=== PATIENT | female | born 1960 | race Caucasian/White ===

== ENCOUNTER 2022-12-20 17:34 | Outpatient (CLI) | payer MEDICAID, SELFPAY | END 2022-12-20 17:35 | disposition home or self-care (01) | LOC: AMB 12-24 01:21 | PROVIDERS: Visit Provider Family Medicine | DX: R06.09 Other forms of dyspnea (principal) | CPT/HCPCS: A0425; A0433 ==

== ENCOUNTER 2022-12-20 18:31 | Emergency (ER) | payer MEDICAID, SELFPAY ==
--- NOTE | 2022-12-20 | CRLHL7_ITS ---
For Patients: As a result of the Cures Act, medical imaging exams and procedure reports are released immediately into your electronic medical record. You may view this report before your referring provider. If you have questions, please contact your health care provider. INDICATION: Endotracheal tube placement. TECHNIQUE: Chest 1 view(s) COMPARISON: Chest radiograph dated 08/03/2022. FINDINGS/IMPRESSION: Endotracheal tube tip is 5.5 cm above the nahomi. Cardiomediastinal silhouette and pulmonary vasculature are normal. Mild patchy bilateral interstitial opacities. No significant layering pleural effusion, no pneumothorax. Healed bilateral rib fracture deformities noted. Dictated by Markel Villanueva MD @ 12/20/2022 8:45:56 PM (Electronically Signed)
[2022-12-20] MEDS: MIDAZOLAM HCL 1 MG/ML inj 4 MG IVP (18:50)
[2022-12-20] MEDS: fentaNYL 100 MCG/2 ML inj 50 MCG IVP ×2 (18:50→19:28)
[2022-12-20 19:13] LABS: Basophils Absolute Auto 0.02 K/uL (0.00-0.30); Basophils Percent Auto 0.2 % (0.0-3.0); Eosinophils Absolute Auto 0.01 K/uL (0.00-0.50); Eosinophils Percent Auto 0.1 % (0.0-7.0); Hematocrit 24.5 % (33.0-51.0); Hemoglobin* 8.5 gm/dL (12.0-16.0); Immature Granulocytes Abs Auto 0.09 K/uL (0.00-0.30); Immature Granulocytes Pct Auto 0.8 %; Mean Corpuscular HGB Conc 35 gm/dL (32-36); Mean Corpuscular Hemoglobin 34 pg (26-34); Mean Corpuscular Volume 97 fL (80-100); Monocytes Percent Auto 8.6 % (0.0-11.0); Neutrophils Percent Auto 83.3 % (42.0-72.0); Platelet Count* 242 K/uL (140-440); RDW Coefficient of Variation % 13.9 % (11.5-15.5); Red Blood Count 2.54 m/uL (4.00-5.20)
[2022-12-20 19:15] LABS: Slide Review Reflex No
[2022-12-20] MEDS: 0.9 % SODIUM CHLORIDE 500 ML 500 ML IV (19:15)
[2022-12-20] MEDS: ERTAPENEM 1 GM in 0.9 % SODIUM CHLORIDE Mini-bag 100 ML IVPB (19:15)
[2022-12-20] MEDS: AMIODARONE 50 MG/ML inj 150 MG in 5 % DEXTROSE 100 ML 100 ML 618 MG IVPB (19:20)
[2022-12-20 19:27] LABS: Albumin* 3.8 g/dL (3.3-5.0)
[2022-12-20 19:28] LABS: Chloride* 72 mmol/L (96-114); Sodium* 134 mmol/L (135-149)
[2022-12-20 19:30] LABS: Aspartate Amino Transferase* 95 U/L (12-35); Bilirubin Total* 1.8 mg/dL (0.1-1.5); Creatinine* 0.5 mg/dL (0.5-1.5); Estimated Glomerular Filt Rate 107 ml/min
--- NOTE | 2022-12-20 19:30 | ED_ITS ---
HPI - General Adult General Date Seen: 12/20/22 Chief complaint: Cardiac Arrest/CPR Stated complaint: Cardiac Time Seen by Provider: 12/20/22 19:22 Source: family, EMS, RN notes reviewed and old records reviewed Mode of arrival: EMS Limitations: no limitations History of Present Illness HPI narrative: Simona is a 61-year-old female with a history of alcohol abuse, COPD, hypokalemia, continued tobacco and alcohol use who comes to the emergency room with EMS post arrest. EMS was called to Simona's house as family had not heard from her in a few days. They found her awake and talking but with complaints of weakness and increased wheezing over the past 3 days. While EMS was talking to Simona she suddenly went into seizure-like activity and is they prepared Versed they noticed that she was not breathing. They found that she was in a PE a arrest. She underwent chest compressions, was intubated and had 1 around epinephrine when she had return of spontaneous circulation. Post arrest medications were Versed and fentanyl. She also had Rocuronium. There is report of fever of 100.7 and audible wheezing upon arrival. Patient is noted to be on Eliquis. Here in the emergency room Simona of course is unable to answer any questions. Her family does arrive and states that she did fall approximately 5 days ago injuring her right hip. As far as they know there were no head injuries. Related Data Home Medications Medication Instructions Recorded Confirmed lisinopril .ROUTE 08/03/22 Allergies Allergy/AdvReac Type Severity Reaction Status Date / Time Penicillins Allergy Verified 08/03/22 18:19 Review of Systems Status of ROS: Reports: unobtainable due to medical condition [facility] Social History Smoking Status: Heavy tobacco smoker What tobacco products do you use: cigarettes Second hand tobacco smoke exposure: Yes How often do you have a drink containing alcohol: 4 or more times a week How many standard drinks containing alcohol do you have on a typical day: 1 or 2 AUDIT-C Alcohol total score: 4 Non-prescribed substance use: denies use Exam Narrative: Exam Narrative: Primary survey: Airway patient is intubated. Trachea is midline. No subcutaneous emphysema is noted. Breathing patient is currently on a ventilator. Lung sounds showed crackles in the bases bilaterally but otherwise bilateral equal sounds. Circulation no obvious blue bleeding at this time. Patient has a GCS of 3. She has cold hands but her body is warm to touch. Pupils are approximately 3 mm. They are sluggishly reactive. Head is atra umatic normocephalic. Neck is supple. She has a healing wound on her left cheek. There is a central scab there. Does not warm to the touch or weeping. Heart is with an irregularly irregular rhythm. Heart monitor shows frequent bursts of PVC ranging from 1 to up to 6. These are non perfusing. Abdomen is soft nontender. Lower extremities show bruising and healing wounds on the right knee. No obvious edema. Const: Documenting provider has reviewed patient's vital signs: yes Course Course Hospital Course: Upon patient arrival we were hopeful that we would be able to do an expedited transfer as patient was post PE a arrest with [facility]. [place], [place], [place], [facility] all unable to accept patient. With that we elected to do laboratory values and CT here in [place]. During this time we use Versed and fentanyl for sedation. We placed an OG with success. A chest x-ray showed ET tube that needed to be advanced 1 cm. Chest x-ray without evidence of pneumonia. We were unable to use ketamine given at the shortage and I did not feel comfortable using propofol fall as patient's blood pressure had initially dropped from 170 systolic to 110. We did do an amiodarone 150 bolus. In addition started magnesium as there was no history of renal failure and was did have a history of alcohol use. Magnesium 1 g started. Potassium then returned at 1.6. We started 10 mEq IV IV but also gave after after facet potassium 25 mEq as this was a critical potassium and likely the reason for ectopy noted on her EKG. Medical Decision Making MDM Narrative Medical decision making narrative: 1. Respiratory arrest-chest x-ray without evidence of pneumothorax. Patient was swabbed for COVID. No wheezing noted. Given vent status did give patient initially Zosyn until it was discovered she had a penicillin allergy and that was immediately discontinued. 1 g of ertapenem was then given. Patient with a history of COPD. 2. PE a arrest with ROSC-1 round of epi and chest compressions return patient to a perfusing rhythm. Very irritable rhythm noted with frequent bursts of PVC occasional PAC. There were runs of ventricular tachycardia and thus we did give amiodarone 150 bolus. EKG greatly improved after initiating correction of 3. And 4. 3. Hypomagnesia- Patient was also given magnesium 1 g prior to return of but magnesium level which has come back at 0.8. 4. Hypokalemia-critical at 1.6. Hung 10 mEq rider and did give 25 after effervescent potassium via OG tube. 5. Anemia-no obvious bleeding at this time. Did not have an opportunity for guaiac of stool. Patient did have recent fall. CT he pending 6. History of alcohol use-alcohol level 0. 7. Disposition-ground ambulance transfer to [facility]. Lab Data Labs: Lab Results 12/20/22 12/20/22 Range/Units 19:05 19:05 WBC 10.90 (4.50-11.00) K/uL RBC 2.54 L (4.00-5.20) m/uL Hgb 8.5 L (12.0-16.0) gm/dL Hct 24.5 L (33.0-51.0) % MCV 97 (80-100) fL MCH 34 (26-34) pg MCHC 35 (32-36) gm/dL RDW Coeff of Katina 13.9 (11.5-15.5) % Plt Count 242 (140-440) K/uL Neut % (Auto) 83.3 H (42.0-72.0) % Lymph % (Auto) 7.0 L (20-44) % [place] % (Auto) 8.6 (0.0-11.0) % Eos % (Auto) 0.1 (0.0-7.0) % Baso % (Auto) 0.2 (0.0-3.0) % Neut # (Auto) 9.10 H (1.7-7.0) K/uL Lymph # (Auto) 0.80 L (0.90-2.90) K/uL [place] # (Auto) 0.90 (0.00-0.90) K/UL Eos # (Auto) 0.01 (0.00-0.50) K/uL Baso # (Auto) 0.02 (0.00-0.30) K/uL Sodium 134 L (135-149) mmol/L Potassium 1.6 L* (3.6-5.1) mmol/L Chloride 72 L (96-114) mmol/L Carbon Dioxide > 40 H* (20-32) mmol/L BUN 17 (7-30) mg/dL Creatinine 0.5 (0.5-1.5) mg/dL Estimated GFR 107 ml/min Glucose 143 H (60-115) mg/dL Calcium 7.1 L (8.4-10.6) mg/dL Magnesium 0.8 L* (1.5-2.6) mg/dL Total Bilirubin 1.8 H (0.1-1.5) mg/dL AST 95 H (12-35) U/L ALT (4-35) U/L Alkaline Phosphatase 67 (40-150) U/L Total Protein 6.6 (6.0-8.3) g/dL Albumin 3.8 (3.3-5.0) g/dL Salicylates < 1.0 L (1.0-10) mg/dL Acetaminophen < 10.0 L (10.0-30.0) ug/mL Ethyl Alcohol < 0.01 L (0.01-0.03) % Imaging Data CT scan - head: Attestation: I have reviewed the pertinent imaging results. My impression: I did not note any acute bleeding Radiologist's impression: midline shift. The basilar cisterns are patent. No hydrocephalus. The sen-white matter interface is otherwise preserved. No acute osseous abnormality. No extracalvarial soft tissue abnormality. The mastoid air cells are clear. The paranasal sinuses are well-aerated. The visualized portions of the orbits and globes are unremarkable. IMPRESSION: No acute intracranial process per unenhanced head CT. Cervical spine CT: Attestation: I have reviewed the pertinent imaging results. My impression: I did note acute injury Radiologist's impression: No acute fracture. Stable trace anterolisthesis of C4 on C5. Stable trace retrolisthesis of C5 on C6. Bony mineralization is age appropriate. No prevertebral soft tissue hematoma or swelling. No soft tissue abnormality is identified. Stable multilevel cervical spondylosis with disc osteophyte complexes causing at least effacement of the anterior thecal sac. No pathologically enlarged lymph nodes. IMPRESSION: Chest x-ray: Attestation: I have reviewed the pertinent imaging results. My impression: I do not note any acute infiltrates. Tip of ET tube approximately 5 cm above nahomi no evidence of a widened mediastinum Radiologist's impression: Endotracheal tube tip is 5.5 cm above the nahomi. Cardiomediastinal silhouette and pulmonary vasculature are normal. Mild patchy bilateral interstitial opacities. No significant layering pleural effusion, no pneumothorax. Healed bilateral rib fracture deformities noted. CT Chest/Ab/Pelvis: Attestation: I have reviewed the pertinent imaging results. Radiologist's impression: Liver: Diffuse hepatic steatosis. Gallbladder and biliary: Sludge and an otherwise normal gallbladder. Normal caliber bile ducts. Spleen: Normal size and attenuation. Pancreas: Normal attenuation without peripancreatic inflammatory changes or ductal dilatation. Adrenal glands: Normal adrenal glands. Kidneys and ureters: Normal attenuation. No radio-opaque calculi. No hydroureteronephrosis. GI tract: Enteric tube with tip in the gastric body. Normal caliber small and large bowel loops. Normal appendix. Colonic diverticulosis without diverticulitis. Vascular structures: Normal caliber aorta with atherosclerotic calcifications. Air within the left common femoral vein likely iatrogenic. Lymph nodes: No lymphadenopathy in the abdomen or pelvis by size criteria. Peritoneum: No free air, free fluid, or focal drainable fluid collection. PELVIS: Genitourinary system: Urinary bladder is decompressed with a catheter. Age- appropriate uterus and ovaries. SKELETAL STRUCTURES AND SOFT TISSUES: Old bilateral rib fractures. IMPRESSION: 1. No acute process within the chest, abdomen, or pelvis given lack of intravenous contrast. 2. Areas of mucus plugging and retained bronchial and tracheal secretions. 3. Life support devices as above. ECG Data Interpretation: EKG by my read shows significant ectopy. Occasional 5 beat runs of ventricular tachycardia noted on monitor. Critical Care Time Critical Care Time Critical Care Time: Yes Attestation: The patient required my highest level preparedness to intervene emergently and I personally spent this critical care time directly and personally managing the patient. This critical care time included: Obtaining a history; Examining the patient; Pulse oximetry; Ordering and reviewing of studies; Arranging urgent treatment with development of a management plan; Evaluation of patients response to treatment; Frequent reassessment discussions with other providers. This critical care time was performed to assess and manage the high probability of imminent life-threatening deterioration that could result in multiorgan failure. It was exclusive of separate billable procedures and treating other patients and teaching time. Total Critical Care Time in Minutes: 120 Discharge Plan Discharge Prescriptions: No Action lisinopril .ROUTE Follow Up/Referrals: Provider,Not a Local [Primary Care Provider] -
[2022-12-20 19:31] LABS: Alkaline Phosphatase* 67 U/L (40-150); Blood Urea Nitrogen* 17 mg/dL (7-30); Calcium* 7.1 mg/dL (8.4-10.6); Glucose* 143 mg/dL (60-115); Total Protein* 6.6 g/dL (6.0-8.3)
--- NOTE | 2022-12-20 19:31 | CT_ITS ---
Patient: MINDA EDWARDS Facility:?[facility] Patient ID:?[id number] Site Patient ID:?[id number]. Site :?[id number] Study:?CT-Spine Cervical -12/20/2022 7:56:32 PM Ordering Physician:?UNKNOWN UNKNOWN Final Report: INDICATION: Fall. TECHNIQUE: CT cervical spine without contrast. COMPARISON: CT July 2022. FINDINGS: No acute fracture. Stable trace anterolisthesis of C4 on C5. Stable trace retrolisthesis of C5 on C6. Bony mineralization is age appropriate. No prevertebral soft tissue hematoma or swelling. No soft tissue abnormality is identified. Stable multilevel cervical spondylosis with disc osteophyte complexes causing at least effacement of the anterior thecal sac. No pathologically enlarged lymph nodes. IMPRESSION: No acute fracture. Please note that all CT scans at this facility use dose modulation, iterative reconstruction, and/or weight-based dosing when appropriate to reduce radiation dose to as low as reasonably achievable. Dictated by Rambo Sam MD @ 12/20/2022 8:10:29 PM Signed by:?Rambo Sam MD @12/20/2022 8:10:29 PM (Electronic Signature)
--- NOTE | 2022-12-20 19:31 | CRLHL7_ITS ---
For Patients: As a result of the Century Cures Act, medical imaging exams and procedure reports are released immediately into your electronic medical record. You may view this report before your referring provider. If you have questions, please contact your health care provider. INDICATION: Post arrest, fall TECHNIQUE: CT head without contrast. COMPARISON: None. FINDINGS: No intracranial hemorrhage. No discrete mass or mass effect. There is no midline shift. The basilar cisterns are patent. No hydrocephalus. The sen-white matter interface is otherwise preserved. No acute osseous abnormality. No extracalvarial soft tissue abnormality. The mastoid air cells are clear. The paranasal sinuses are well-aerated. The visualized portions of the orbits and globes are unremarkable. IMPRESSION: No acute intracranial process per unenhanced head CT. Please note that all CT scans at this facility use dose modulation, iterative reconstruction, and/or weight-based dosing when appropriate to reduce radiation dose to as low as reasonably achievable. Dictated by Rambo Sam MD @ 12/20/2022 8:07:45 PM (Electronically Signed)
--- NOTE | 2022-12-20 19:31 | CRLHL7_ITS ---
For Patients: As a result of the Century Cures Act, medical imaging exams and procedure reports are released immediately into your electronic medical record. You may view this report before your referring provider. If you have questions, please contact your health care provider. INDICATION: Post arrest TECHNIQUE: CT chest, abdomen and pelvis acquired without contrast. COMPARISON: CT July 2022 FINDINGS: CHEST: Lungs and Airways: Appropriately positioned endotracheal tube. Respiratory motion within the lung bases. Bibasilar subsegmental atelectasis. Trace biapical subpleural fibrosis. Scattered areas of endobronchial mucous plugging. Retained tracheal secretions. Heart and Mediastinum: The visualized portions of the thyroid are normal. No axillary or supraclavicular lymphadenopathy. No mediastinal, hilar or retrocrural lymphadenopathy. Normal heart size. Normal caliber aorta. Atherosclerotic calcifications. Pleura: The pleural spaces are normal. ABDOMEN: Liver: Diffuse hepatic steatosis. Gallbladder and biliary: Sludge and an otherwise normal gallbladder. Normal caliber bile ducts. Spleen: Normal size and attenuation. Pancreas: Normal attenuation without peripancreatic inflammatory changes or ductal dilatation. Adrenal glands: Normal adrenal glands. Kidneys and ureters: Normal attenuation. No radio-opaque calculi. No hydroureteronephrosis. GI tract: Enteric tube with tip in the gastric body. Normal caliber small and large bowel loops. Normal appendix. Colonic diverticulosis without diverticulitis. Vascular structures: Normal caliber aorta with atherosclerotic calcifications. Air within the left common femoral vein likely iatrogenic. Lymph nodes: No lymphadenopathy in the abdomen or pelvis by size criteria. Peritoneum: No free air, free fluid, or focal drainable fluid collection. PELVIS: Genitourinary system: Urinary bladder is decompressed with a catheter. Age-appropriate uterus and ovaries. SKELETAL STRUCTURES AND SOFT TISSUES: Old bilateral rib fractures. IMPRESSION: 1. No acute process within the chest, abdomen, or pelvis given lack of intravenous contrast. 2. Areas of mucus plugging and retained bronchial and tracheal secretions. 3. Life support devices as above. Please note that all CT scans at this facility use dose modulation, iterative reconstruction, and/or weight-based dosing when appropriate to reduce radiation dose to as low as reasonably achievable. Dictated by Rambo Sam MD @ 12/20/2022 8:18:42 PM (Electronically Signed)
[2022-12-20 19:40] LABS: Acetaminophen* < 10.0 ug/mL (10.0-30.0); Ethanol* < 0.01 % (0.01-0.03); Salicylate* < 1.0 mg/dL (1.0-10)
[2022-12-20] MEDS: MIDAZOLAM HCL 1 MG/ML inj 2 MG IVP (19:42)
[2022-12-20 19:49] LABS: Carbon Dioxide* > 40 mmol/L (20-32); Potassium* 1.6 mmol/L (3.6-5.1)
[2022-12-20] MEDS: POTASSIUM BICARB 25 MEQ EFFERVESCENT TAB PO (19:50)
[2022-12-20] MEDS: POTASSIUM CHLORIDE 10 MEQ/100 ML PIGGYBACK 100 MEQ IVPB (19:50)
[2022-12-20 19:54] LABS: Magnesium* 0.8 mg/dL (1.5-2.6)
[2022-12-20] MEDS: MAGNESIUM SULFATE 2 GM/50 ML PIGGYBACK IVPB (20:16)
--- NOTE | 2022-12-20 20:23 | ED.NURSE ---
Patient was transferred to [place] at 2023. Patient transferred with magnesium 1g and potassium 10mEq infusing. Patient with ventilator set to transport settings per RT. Family with patient at time of transfer and given transferring hospital details. Updated RN reports called to [facility] at time of transfer. Patient sent via [facility].
--- NOTE | 2022-12-20 20:43 | ED.NURSE ---
Patient remained on EMS monitoring due to anticipated transfer to higher level of care. Vital signs not able to be uploaded into HMR due to this.
--- NOTE | 2023-02-12 10:57 | RESP.RT ---
Reviewing Chart for See [facility], [facility] program
== END 2022-12-20 20:20 | disposition home or self-care (01) ==
PROVIDERS: Emergency Provider Family Medicine
DX: R09.2 Respiratory arrest (principal); E83.42 Hypomagnesemia; E87.6 Hypokalemia
CPT/HCPCS: 31500; 36415; 70450; 71045; 71250; 72125; 74176; 80053; 80143; 80179; 82077; 83735; 85025; 93005; 96365; 96366; 96375; 96376; 99285; 99291; 99292; A9270; J0282; J1335; J2250; J3010; J3475; J3480; J7120

== ENCOUNTER 2022-12-20 19:47 | Outpatient (CLI) | payer MEDICAID, SELFPAY | END 2022-12-20 19:48 | disposition home or self-care (01) | LOC: AMB 12-24 01:28 | PROVIDERS: Visit Provider Family Medicine | DX: I49.9 Cardiac arrhythmia, unspecified (principal) | CPT/HCPCS: A0425; A0434 ==

== ENCOUNTER 2023-06-29 21:53 | Outpatient (CLI) | payer MEDICAID, SELFPAY | END 2023-06-29 21:54 | disposition home or self-care (01) | LOC: AMB 07-03 10:35 | PROVIDERS: Visit Provider Family Medicine | DX: R55 Syncope and collapse (principal); T14.90XA Injury, unspecified, initial encounter; W18.30XA Fall on same level, unspecified, initial encounter; Y92.038 Other place in apartment as the place of occurrence of the external cause | CPT/HCPCS: A0425; A0429 ==

== ENCOUNTER 2023-06-29 22:32 | Emergency (ER) | payer MEDICAID, SELFPAY ==
[2023-06-29] VITALS (7 sets, daily range): BP systolic 166; BP diastolic 84; PULSE 105–184; RESP 20; TEMP 36.1; O2SAT 91–97
--- NOTE | 2023-06-29 22:43 | ED_ITS ---
HPI - General Adult General Chief complaint: Fall/Minor Trauma <Tenisha Hicks MD - Last Filed: 07/01/23 06:02> Stated complaint: Fall <Tenisha Hicks MD - Last Filed: 07/01/23 06:02> Time Seen by Provider: 06/29/23 22:35 <Tenisha Hicks MD - Last Filed: 07/01/23 06:02> Source: patient and EMS <Tenisha Hicks MD - Last Filed: 07/01/23 06:02> Mode of arrival: EMS <Tenisha Hicks MD - Last Filed: 07/01/23 06:02> Limitations: no limitations <Tenisha Hicks MD - Last Filed: 07/01/23 06:02> History of Present Illness HPI narrative: 62-year-old female brought in by EMS after they found her down in her apartment covered in feces. The patient fell approximately 1 hour before EMS arrived according to her and was unable to get up. Supposedly someone walking by her apartment saw her down and called EMS for her. She can not tell me how she fell. She denies drinking alcohol today, she does have a long history of alcohol use. She denies hitting her head or losing consciousness. She states that she has had diarrhea all day long. Denies any urinary symptoms. Denies chest pain or shortness of breath. She has no headache blurry vision or ringing in her ears. She has weakness that she has noticed going on for the last 2 days. She denies fevers or vomiting. States that she has been coughing, unclear for how long. <Tenisha Hicks MD - Last Filed: 07/01/23 06:02> Related Data Home medications: Home Medications Medication Instructions Recorded Confirmed lisinopril .ROUTE 08/03/22 <Tenisha Hicks MD - Last Filed: 07/01/23 06:02> Allergies/adverse reactions: Allergies Allergy/AdvReac Type Severity Reaction Status Date / Time Penicillins Allergy Verified 06/29/23 22:47 <Tenisha Hicks MD - Last Filed: 07/01/23 06:02> Review of Systems Status of ROS: Reports: 10 or more systems reviewed and unremarkable except as noted in History and below <Tenisha Hicks MD - Last Filed: 07/01/23 06:02> [facility] Social History: Social History Smoking Status: Heavy tobacco smoker What tobacco products do you use: cigarettes Second hand tobacco smoke exposure: Yes How often do you have a drink containing alcohol: 4 or more times a week How many standard drinks containing alcohol do you have on a typical day: 1 or 2 AUDIT-C Alcohol total score: 4 Non-prescribed substance use: denies use <Tenisha Hicks MD - Last Filed: 07/01/23 06:02> Exam Narrative: Exam Narrative: Very thin patient in no acute distress tremor at rest. Alert and oriented x3. Answers questions appropriately and is cooperative. Patient appears very malnourished, older than stated age, skin is mottled and she is covered in feces, smells of feces and urine. HEENT: Normocephalic atraumatic. Pupils are equally round reactive to light. Extraocular muscles are intact. Conjunctivae are moist without any icterus noted. Dry mucous membranes. Neck is soft without any lymphadenopathy. She has no tenderness to palpation of the cervical spine. She holds her neck at an angle and appears uncomfortable but denies pain with palpation. Cardiovascular: Tachycardic, S1-S2 present without murmurs. Lungs: Rhonchi bilaterally. Abdomen: Soft and nontender with normal bowel sounds. No guarding or rebound. Liver seems enlarged. Abdomen is mildly distended. Extremities: Bilateral lower extremities are without edema. Skin: Mottled, no obvious abrasions or lacerations noted <Tenisha Hicks MD - Last Filed: 07/01/23 06:02> Const: Vital Signs, click to edit/add: Vital Signs - 24 hr 06/29/23 22:42 06/29/23 22:42 06/29/23 22:47 Temperature 96.9 F L Pulse Rate 109 H Pulse Rate [Pulse Oximeter] 105 H Respiratory Rate 20 Blood Pressure Blood Pressure [Ri ght Upper Arm] 166/84 H Pulse Oximetry 95 96 Oxygen Delivery Me thod Room Air Nasal Cannula Oxygen Flow Rate 2 06/29/23 22:48 06/29/23 23:00 06/29/23 23:15 Temperature Pulse Rate 132 H 147 H Pulse Rate [Pulse Oximeter] Respiratory Rate Blood Pressure Blood Pressure [Ri ght Upper Arm] Pulse Oximetry 97 91 97 Oxygen Delivery Me thod Oxygen Flow Rate 06/29/23 23:52 06/30/23 00:00 06/30/23 00:05 Temperature Pulse Rate 184 H 134 H 112 H Pulse Rate [Pulse Oximeter] Respiratory Rate Blood Pressure Blood Pressure [Ri ght Upper Arm] Pulse Oximetry 97 97 96 Oxygen Delivery Me thod Oxygen Flow Rate 06/30/23 00:16 06/30/23 00:19 06/30/23 00:20 Temperature Pulse Rate 116 H 91 92 Pulse Rate [Pulse Oximeter] Respiratory Rate Blood Pressure Blood Pressure [Ri ght Upper Arm] Pulse Oximetry 90 100 100 Oxygen Delivery Me thod Oxygen Flow Rate 06/30/23 00:29 06/30/23 00:30 06/30/23 00:32 Temperature Pulse Rate 96 86 88 Pulse Rate [Pulse Oximeter] Respiratory Rate Blood Pressure 127/91 H 126/85 Blood Pressure [Ri ght Upper Arm] Pulse Oximetry 100 100 100 Oxygen Delivery Me thod Oxygen Flow Rate 06/30/23 00:45 06/30/23 00:47 06/30/23 01:00 Temperature Pulse Rate 112 H 104 H Pulse Rate [Pulse Oximeter] Respiratory Rate Blood Pressure 110/89 Blood Pressure [Ri ght Upper Arm] Pulse Oximetry 100 100 78 L Oxygen Delivery Me thod Oxygen Flow Rate 06/30/23 01:01 06/30/23 01:15 06/30/23 01:17 Temperature Pulse Rate 91 115 H Pulse Rate [Pulse Oximeter] Respiratory Rate Blood Pressure 122/101 H 138/125 H Blood Pressure [Ri ght Upper Arm] Pulse Oximetry 100 100 Oxygen Delivery Me thod Oxygen Flow Rate <Tenisha Hicks MD - Last Filed: 07/01/23 06:02> Vital Signs, click to edit/add: Vital Signs - 24 hr 06/29/23 22:42 06/29/23 22:42 06/29/23 22:47 Temperature 96.9 F L Pulse Rate 109 H Pulse Rate [Pulse Oximeter] 105 H Respiratory Rate 20 Blood Pressure Blood Pressure [Ri ght Upper Arm] 166/84 H Pulse Oximetry 95 96 Oxygen Delivery Me thod Room Air Nasal Cannula Oxygen Flow Rate 2 06/29/23 22:48 06/29/23 23:00 06/29/23 23:15 Temperature Pulse Rate 132 H 147 H Pulse Rate [Pulse Oximeter] Respiratory Rate Blood Pressure Blood Pressure [Ri ght Upper Arm] Pulse Oximetry 97 91 97 Oxygen Delivery Me thod Oxygen Flow Rate 06/29/23 23:52 06/30/23 00:00 06/30/23 00:05 Temperature Pulse Rate 184 H 134 H 112 H Pulse Rate [Pulse Oximeter] Respiratory Rate Blood Pressure Blood Pressure [Ri ght Upper Arm] Pulse Oximetry 97 97 96 Oxygen Delivery Me thod Oxygen Flow Rate 06/30/23 00:16 06/30/23 00:19 06/30/23 00:20 Temperature Pulse Rate 116 H 91 92 Pulse Rate [Pulse Oximeter] Respiratory Rate Blood Pressure Blood Pressure [Ri ght Upper Arm] Pulse Oximetry 90 100 100 Oxygen Delivery Me thod Oxygen Flow Rate 06/30/23 00:29 06/30/23 00:30 06/30/23 00:32 Temperature Pulse Rate 96 86 88 Pulse Rate [Pulse Oximeter] Respiratory Rate Blood Pressure 127/91 H 126/85 Blood Pressure [Ri ght Upper Arm] Pulse Oximetry 100 100 100 Oxygen Delivery Me thod Oxygen Flow Rate 06/30/23 00:45 06/30/23 00:47 06/30/23 01:00 Temperature Pulse Rate 112 H 104 H Pulse Rate [Pulse Oximeter] Respiratory Rate Blood Pressure 110/89 Blood Pressure [Ri ght Upper Arm] Pulse Oximetry 100 100 78 L Oxygen Delivery Me thod Oxygen Flow Rate 06/30/23 01:01 06/30/23 01:15 06/30/23 01:17 Temperature Pulse Rate 91 115 H Pulse Rate [Pulse Oximeter] Respiratory Rate Blood Pressure 122/101 H 138/125 H Blood Pressure [Ri ght Upper Arm] Pulse Oximetry 100 100 Oxygen Delivery Me thod Oxygen Flow Rate <Tenisha Gutierrez MD - Last Filed: 06/30/23 01:47> Course Course Hospital Course: EKG, read by me, shows atrial fibrillation with premature ventricular complexes, pulse of 105. Patient is placed a court monitor her pulse fluctuates between 105-130. IV is established and labs were drawn. Normal saline is started right away. Given her unwitnessed fall a head and neck CT were ordered. Shortly after presenting to the ED patient is found to be hypoxic at 85% on room air-at this time she is put on 2 L nasal cannula and is maintained in the mid 90s. A chest x-ray is ordered. Patient's CBC shows mild anemia with a hemoglobin of 11.1 and hematocrit of 32.9, normal platelet count 148. Sodium is slightly low at 134. Potassium is markedly low at 1.4, chloride 75. At this time patient is given 40 mEq of oral potassium and another 10 mEq of IV potassium per hour of potassium is started simultaneously. We also started a magnesium drip at this time, magnesium revolves were low at 0.8. Patient has elevated LFTs, normal kidney function. Her troponin is markedly elevated at 0.52. A lactate cannot be determined given her low potassium. Salicylates acetaminophen alcohol levels are negative She has not yet given a urine sample. At this time I did consult with Dr. Arambula, travel clerk at [facility] who has accepted the patient for transfer. [facility]. <Tenisha Hicks MD - Last Filed: 07/01/23 06:02> Reevaluation(s) Time of Reevaluation #1: 01:46 <Tenisha Gutierrez MD - Last Filed: 06/30/23 01:47> Reevaluation #1: Lab unable to find site for blood draw, they tried multiple times and could not get blood for repeat BMP. Patient will be transferring to [facility] shortly, thus we will allow them to recheck on arrival there. <Tenisha Ellison MD - Last Filed: 06/30/23 01:47> Vital Signs Vital signs: Initial Vital Signs Temperature 96.9 F L 06/29/23 22:42 Temperature Source Temporal Artery Scan 06/29/23 22:42 Pulse Rate 105 H 06/29/23 22:42 Respiratory Rate 20 06/29/23 22:42 Blood Pressure 166/84 H 06/29/23 22:42 Blood Pressure Mean 111 H 06/29/23 22:42 Blood Pressure Position Supine 06/29/23 22:42 Pulse Oximetry 95 06/29/23 22:42 Oxygen Delivery Method Room Air 06/29/23 22:42 Oxygen Flow Rate 2 06/29/23 22:42 Vital Signs Temperature 96.9 F L 06/29/23 22:42 Pulse Rate 105 H 06/29/23 22:42 Respiratory Rate 20 06/29/23 22:42 Blood Pressure 166/84 H 06/29/23 22:42 Pulse Oximetry 95 06/29/23 22:42 Oxygen Delivery Method Room Air 06/29/23 22:42 Oxygen Flow Rate 2 06/29/23 22:42 Temperature 98.6 F 06/30/23 02:16 Pulse Rate 125 H 06/30/23 02:16 Respiratory Rate 24 06/30/23 02:16 Blood Pressure 169/111 H 06/30/23 02:16 Pulse Oximetry 100 06/30/23 02:00 Oxygen Delivery Method Nasal Cannula 06/29/23 23:22 Oxygen Flow Rate 2 06/29/23 23:22 <Tenisha Hicks MD - Last Filed: 07/01/23 06:02> Initial Vital Signs Temperature 96.9 F L 06/29/23 22:42 Temperature Source Temporal Artery Scan 06/29/23 22:42 Pulse Rate 105 H 06/29/23 22:42 Respiratory Rate 20 06/29/23 22:42 Blood Pressure 166/84 H 06/29/23 22:42 Blood Pressure Mean 111 H 06/29/23 22:42 Blood Pressure Position Supine 06/29/23 22:42 Pulse Oximetry 95 06/29/23 22:42 Oxygen Delivery Method Room Air 06/29/23 22:42 Oxygen Flow Rate 2 06/29/23 22:42 Vital Signs Temperature 96.9 F L 06/29/23 22:42 Pulse Rate 105 H 06/29/23 22:42 Respiratory Rate 20 06/29/23 22:42 Blood Pressure 166/84 H 06/29/23 22:42 Pulse Oximetry 95 06/29/23 22:42 Oxygen Delivery Method Room Air 06/29/23 22:42 Oxygen Flow Rate 2 06/29/23 22:42 Temperature 98.6 F 06/30/23 02:16 Pulse Rate 125 H 06/30/23 02:16 Respiratory Rate 24 06/30/23 02:16 Blood Pressure 169/111 H 06/30/23 02:16 Pulse Oximetry 100 06/30/23 02:00 Oxygen Delivery Method Nasal Cannula 06/29/23 23:22 Oxygen Flow Rate 2 06/29/23 23:22 <Tenisha Gutierrez MD - Last Filed: 06/30/23 01:47> Medical Decision Making MDM Narrative Medical decision making narrative: 62-year-old female with hypokalemia, rhabdomyolysis, hypomagnesemia, hypoxic respiratory failure, failure to thrive at home, AFib with RVR-patient will be transferred to [facility]. <Tenisha Hicks MD - Last Filed: 07/01/23 06:02> Medical Records Medical records reviewed: Yes I reviewed the patient's medical records <Tenisha Hicks MD - Last Filed: 07/01/23 06:02> Lab Data Lab results reviewed: Yes I reviewed the patient's lab results <Tenisha Hicks MD - Last Filed: 07/01/23 06:02> Labs: Lab Results 06/29/23 06/29/23 06/30/23 Range/Units 23:00 23:23 00:15 WBC 10.82 (4.50-11.00) K/uL RBC 3.22 L (4.00-5.20) m/uL Hgb 11.1 L (12.0-16.0) gm/dL Hct 32.9 L (33.0-51.0) % MCV 102 H (80-100) fL MCH 35 H (26-34) pg MCHC 34 (32-36) gm/dL RDW Coeff of Katina 13.9 (11.5-15.5) % Plt Count 148 (140-440) K/uL Neut % (Auto) 86.3 H (42.0-72.0) % Lymph % (Auto) 6.7 L (20-44) % Ellsworth % (Auto) 6.5 (0.0-11.0) % Eos % (Auto) 0.0 (0.0-7.0) % Baso % (Auto) 0.1 (0.0-3.0) % Neut # (Auto) 9.30 H (1.7-7.0) K/uL Lymph # (Auto) 0.70 L (0.90-2.90) K/uL Ellsworth # (Auto) 0.70 (0.00-0.90) K/UL Eos # (Auto) 0.00 (0.00-0.50) K/uL Baso # (Auto) 0.01 (0.00-0.30) K/uL Abs Immat Gran (auto) 0.04 (0.00-0.30) K/uL Imm/Tot Granulo (auto) 0.4 % ESR 6 (2-20) mm/hr VBG pH 7.479 H (7.32-7.43) VBG pCO2 43 (40-50) mmHG VBG pO2 38.1 (25-47) mmHG VBG HCO3 32 H (21-28) mmol/L Sodium 134 L (135-149) mmol/L Potassium 1.4 L* (3.6-5.1) mmol/L Chloride 75 L (96-114) mmol/L Carbon Dioxide 35 H (20-32) mmol/L BUN 18 (7-30) mg/dL Creatinine 0.9 (0.5-1.5) mg/dL Estimated Creat Clear Estimated GFR 72 ml/min Glucose 121 H (60-115) mg/dL Lactate (0.5-1.9) mmol/L Calcium 7.0 L (8.4-10.6) mg/dL Magnesium 0.8 L* (1.5-2.6) mg/dL Total Bilirubin 4.2 H (0.1-1.5) mg/dL Direct Bilirubin 2.4 H (0.0-0.5) mg/dL AST 242 H (12-35) U/L ALT 120 H (4-35) U/L Alkaline Phosphatase 165 H (40-150) U/L Total Creatine Kinase 2456 H (41-117) U/L Troponin I 0.52 H* (0.01-0.04) ng/mL C-Reactive Protein 1.4 H (0.5-1.0) mg/dL Total Protein 6.8 (6.0-8.3) g/dL Albumin 3.9 (3.3-5.0) g/dL Salicylates < 1.0 L (1.0-10) mg/dL Acetaminophen < 10.0 L (10.0-30.0) ug/mL Ethyl Alcohol < 0.01 L (0.01-0.03) % POC Troponin I 0.36 H (0.01-0.04) ng/ml 06/30/23 Range/Units 00:53 WBC (4.50-11.00) K/uL RBC (4.00-5.20) m/uL Hgb (12.0-16.0) gm/dL Hct (33.0-51.0) % MCV (80-100) fL MCH (26-34) pg MCHC (32-36) gm/dL RDW Coeff of Katina (11.5-15.5) % Plt Count (140-440) K/uL Neut % (Auto) (42.0-72.0) % Lymph % (Auto) (20-44) % Ellsworth % (Auto) (0.0-11.0) % Eos % (Auto) (0.0-7.0) % Baso % (Auto) (0.0-3.0) % Neut # (Auto) (1.7-7.0) K/uL Lymph # (Auto) (0.90-2.90) K/uL Ellsworth # (Auto) (0.00-0.90) K/UL Eos # (Auto) (0.00-0.50) K/uL Baso # (Auto) (0.00-0.30) K/uL Abs Immat Gran (auto) (0.00-0.30) K/uL Imm/Tot Granulo (auto) % ESR (2-20) mm/hr VBG pH (7.32-7.43) VBG pCO2 (40-50) mmHG VBG pO2 (25-47) mmHG VBG HCO3 (21-28) mmol/L Sodium Cancelled (135-149) mmol/L Potassium Cancelled (3.6-5.1) mmol/L Chloride Cancelled (96-114) mmol/L Carbon Dioxide Cancelled (20-32) mmol/L BUN Cancelled (7-30) mg/dL Creatinine Cancelled (0.5-1.5) mg/dL Estimated Creat Clear Cancelled Estimated GFR Cancelled ml/min Glucose Cancelled (60-115) mg/dL Lactate (0.5-1.9) mmol/L Calcium Cancelled (8.4-10.6) mg/dL Magnesium (1.5-2.6) mg/dL Total Bilirubin (0.1-1.5) mg/dL Direct Bilirubin (0.0-0.5) mg/dL AST (12-35) U/L ALT (4-35) U/L Alkaline Phosphatase (40-150) U/L Total Creatine Kinase (41-117) U/L Troponin I (0.01-0.04) ng/mL C-Reactive Protein (0.5-1.0) mg/dL Total Protein (6.0-8.3) g/dL Albumin (3.3-5.0) g/dL Salicylates (1.0-10) mg/dL Acetaminophen (10.0-30.0) ug/mL Ethyl Alcohol (0.01-0.03) % POC Troponin I (0.01-0.04) ng/ml <Tenisha Hicks MD - Last Filed: 07/01/23 06:02> Lab Results 06/29/23 06/29/23 06/30/23 Range/Units 23:00 23:23 00:15 WBC 10.82 (4.50-11.00) K/uL RBC 3.22 L (4.00-5.20) m/uL Hgb 11.1 L (12.0-16.0) gm/dL Hct 32.9 L (33.0-51.0) % MCV 102 H (80-100) fL MCH 35 H (26-34) pg MCHC 34 (32-36) gm/dL RDW Coeff of Katina 13.9 (11.5-15.5) % Plt Count 148 (140-440) K/uL Neut % (Auto) 86.3 H (42.0-72.0) % Lymph % (Auto) 6.7 L (20-44) % Ellsworth % (Auto) 6.5 (0.0-11.0) % Eos % (Auto) 0.0 (0.0-7.0) % Baso % (Auto) 0.1 (0.0-3.0) % Neut # (Auto) 9.30 H (1.7-7.0) K/uL Lymph # (Auto) 0.70 L (0.90-2.90) K/uL Ellsworth # (Auto) 0.70 (0.00-0.90) K/UL Eos # (Auto) 0.00 (0.00-0.50) K/uL Baso # (Auto) 0.01 (0.00-0.30) K/uL Abs Immat Gran (auto) 0.04 (0.00-0.30) K/uL Imm/Tot Granulo (auto) 0.4 % ESR 6 (2-20) mm/hr VBG pH 7.479 H (7.32-7.43) VBG pCO2 43 (40-50) mmHG VBG pO2 38.1 (25-47) mmHG VBG HCO3 32 H (21-28) mmol/L Sodium 134 L (135-149) mmol/L Potassium 1.4 L* (3.6-5.1) mmol/L Chloride 75 L (96-114) mmol/L Carbon Dioxide 35 H (20-32) mmol/L BUN 18 (7-30) mg/dL Creatinine 0.9 (0.5-1.5) mg/dL Estimated Creat Clear Estimated GFR 72 ml/min Glucose 121 H (60-115) mg/dL Lactate (0.5-1.9) mmol/L Calcium 7.0 L (8.4-10.6) mg/dL Magnesium 0.8 L* (1.5-2.6) mg/dL Total Bilirubin 4.2 H (0.1-1.5) mg/dL Direct Bilirubin 2.4 H (0.0-0.5) mg/dL AST 242 H (12-35) U/L ALT 120 H (4-35) U/L Alkaline Phosphatase 165 H (40-150) U/L Total Creatine Kinase 2456 H (41-117) U/L Troponin I 0.52 H* (0.01-0.04) ng/mL C-Reactive Protein 1.4 H (0.5-1.0) mg/dL Total Protein 6.8 (6.0-8.3) g/dL Albumin 3.9 (3.3-5.0) g/dL Salicylates < 1.0 L (1.0-10) mg/dL Acetaminophen < 10.0 L (10.0-30.0) ug/mL Ethyl Alcohol < 0.01 L (0.01-0.03) % POC Troponin I 0.36 H (0.01-0.04) ng/ml 06/30/23 Range/Units 00:53 WBC (4.50-11.00) K/uL RBC (4.00-5.20) m/uL Hgb (12.0-16.0) gm/dL Hct (33.0-51.0) % MCV (80-100) fL MCH (26-34) pg MCHC (32-36) gm/dL RDW Coeff of Katina (11.5-15.5) % Plt Count (140-440) K/uL Neut % (Auto) (42.0-72.0) % Lymph % (Auto) (20-44) % Ellsworth % (Auto) (0.0-11.0) % Eos % (Auto) (0.0-7.0) % Baso % (Auto) (0.0-3.0) % Neut # (Auto) (1.7-7.0) K/uL Lymph # (Auto) (0.90-2.90) K/uL Ellsworth # (Auto) (0.00-0.90) K/UL Eos # (Auto) (0.00-0.50) K/uL Baso # (Auto) (0.00-0.30) K/uL Abs Immat Gran (auto) (0.00-0.30) K/uL Imm/Tot Granulo (auto) % ESR (2-20) mm/hr VBG pH (7.32-7.43) VBG pCO2 (40-50) mmHG VBG pO2 (25-47) mmHG VBG HCO3 (21-28) mmol/L Sodium Cancelled (135-149) mmol/L Potassium Cancelled (3.6-5.1) mmol/L Chloride Cancelled (96-114) mmol/L Carbon Dioxide Cancelled (20-32) mmol/L BUN Cancelled (7-30) mg/dL Creatinine Cancelled (0.5-1.5) mg/dL Estimated Creat Clear Cancelled Estimated GFR Cancelled ml/min Glucose Cancelled (60-115) mg/dL Lactate (0.5-1.9) mmol/L Calcium Cancelled (8.4-10.6) mg/dL Magnesium (1.5-2.6) mg/dL Total Bilirubin (0.1-1.5) mg/dL Direct Bilirubin (0.0-0.5) mg/dL AST (12-35) U/L ALT (4-35) U/L Alkaline Phosphatase (40-150) U/L Total Creatine Kinase (41-117) U/L Troponin I (0.01-0.04) ng/mL C-Reactive Protein (0.5-1.0) mg/dL Total Protein (6.0-8.3) g/dL Albumin (3.3-5.0) g/dL Salicylates (1.0-10) mg/dL Acetaminophen (10.0-30.0) ug/mL Ethyl Alcohol (0.01-0.03) % POC Troponin I (0.01-0.04) ng/ml <Tenisha Gutierrez MD - Last Filed: 06/30/23 01:47> Imaging Data CT scan - head: Attestation: I have reviewed the pertinent imaging results. <Tenisha Ellison MD - Last Filed: 06/30/23 01:47> Radiologist's impression: Patient: [facility] Facility:?[facility] Patient ID:?[id number] Site Patient ID:?[id number]. Site :?[id number] Study:?CT Head w/o Contrast-06/29/2023 11:54:03 PM Ordering Physician:Jose Steven Final Report: Indication: Fall Technique: Noncontrast head CT Comparison: Head CT 12/20/2022 Findings: Generalized parenchymal volume loss. No acute intracranial hemorrhage or mass. No midline shift no abnormal extra-axial air fluid collections are seen. Partial opacification of the right frontal sinus. Skull and scalp are unremarkable. Impression: No acute intracranial hemorrhage or mass. Please note that all CT scans at this facility use dose modulation, iterative reconstruction, and/or weight-based dosing when appropriate to reduce radiation dose to as low as reasonably achievable. Dictated by Gela Bhagat MD @ 06/30/2023 1:08:25 AM (Electronic Signature) <Tenisha Gutierrez MD - Last Filed: 06/30/23 01:47> CT- Other: Attestation: I have reviewed the pertinent imaging results. <Tenisha Ellison MD - Last Filed: 06/30/23 01:47> Radiologist's impression: Patient: [facility] Facility:?[facility] Patient ID:?[id number] Site Patient ID:?[id number]. Site :?[id number] Study:?CT Spine Cervical w/o Contrast-06/29/2023 11:56:26 PM Ordering Physician:Jose Steven Final Report: Indication: Fall Technique: Techniquecervical spine CT Comparison: Cervical spine 12/20/2022 Findings: Mild anterolisthesis of C2 on C3, C3 and C4-C4 and C5. Retrolisthesis of C5 on C6. Normal height of the vertebral bodies. No acute fracture seen. Lateral masses of C1 align with the articular processes of C2 prevertebral soft tissues within normal limits Impression: No acute vertebral body fracture or traumatic malalignment. Please note that all CT scans at this facility use dose modulation, iterative reconstruction, and/or weight-based dosing when appropriate to reduce radiation dose to as low as reasonably achievable. Dictated by Gela Bhagat MD @ 06/30/2023 1:11:25 AM (Electronic Signature) <Tenisha Gutierrez MD - Last Filed: 06/30/23 01:47> Chest x-ray: Attestation: I have reviewed the pertinent imaging results. <Tenisha Ellison MD - Last Filed: 06/30/23 01:47> Radiologist's impression: Patient: [facility] Facility:?[facility] Patient ID:?[id number] Site Patient ID:?[id number]. Site :?1960 Study:?XRay Chest 2 views-06/29/2023 11:55:27 PM Ordering Physician:Jose Steven Final Report: INDICATION: [id number] fall TECHNIQUE: Two view chest. FINDINGS: The lungs are clear. The heart, mediastinum and pulmonary vessels are of normal size. There is no evidence of pleural disease. Old left rib fractures. IMPRESSION: No acute pulmonary process. Dictated by Gela Bhagat MD @ 06/30/2023 1:12:24 AM (Electronic Signature) <Tenisha Gutierrez MD - Last Filed: 06/30/23 01:47> ECG Data Attestation: I personally reviewed and interpreted this ECG as follows: <Tenisha Hicks MD - Last Filed: 07/01/23 06:02> Critical Care Time Critical Care Time Total Critical Care Time in Minutes: 90 <Tenisha Hicks MD - Last Filed: 07/01/23 06:02> Discharge Plan Discharge Clinical Impression: Respiratory failure, Hypokalemia, Hypomagnesemia, Rhabdomyolysis, Atrial fibrillation with rapid ventricular response <Tenisha Hicks MD - Last Filed: 07/01/23 06:02> Patient Disposition: Xfer [facility] <Tenisha Hicks MD - Last Filed: 07/01/23 06:02> Condition: Guarded <Tenisha Hicks MD - Last Filed: 07/01/23 06:02> Prescriptions: No Action lisinopril .ROUTE <Tenisha Hicks MD - Last Filed: 07/01/23 06:02> Stand Alone Forms: [facility] Info Instructions <Tenisha Hicks MD - Last Filed: 07/01/23 06:02>
--- NOTE | 2023-06-29 22:44 | CRLHL7_ITS ---
For Patients: As a result of the Century Cures Act, medical imaging exams and procedure reports are released immediately into your electronic medical record. You may view this report before your referring provider. If you have questions, please contact your health care provider. Indication: Fall Technique: Noncontrast head CT Comparison: Head CT 12/20/2022 Findings: Generalized parenchymal volume loss. No acute intracranial hemorrhage or mass. No midline shift no abnormal extra-axial air fluid collections are seen. Partial opacification of the right frontal sinus. Skull and scalp are unremarkable. Impression: No acute intracranial hemorrhage or mass. Please note that all CT scans at this facility use dose modulation, iterative reconstruction, and/or weight-based dosing when appropriate to reduce radiation dose to as low as reasonably achievable. Dictated by Gela Bhagat MD @ 06/30/2023 1:08:25 AM (Electronically Signed)
--- NOTE | 2023-06-29 22:44 | CRLHL7_ITS ---
For Patients: As a result of the Century Cures Act, medical imaging exams and procedure reports are released immediately into your electronic medical record. You may view this report before your referring provider. If you have questions, please contact your health care provider. INDICATION: [id number] fall TECHNIQUE: Two view chest. FINDINGS: The lungs are clear. The heart, mediastinum and pulmonary vessels are of normal size. There is no evidence of pleural disease. Old left rib fractures. IMPRESSION: No acute pulmonary process. Dictated by Gela Bhagat MD @ 06/30/2023 1:12:24 AM (Electronically Signed)
--- NOTE | 2023-06-29 22:46 | CRLHL7_ITS ---
For Patients: As a result of the Century Cures Act, medical imaging exams and procedure reports are released immediately into your electronic medical record. You may view this report before your referring provider. If you have questions, please contact your health care provider. Indication: Fall Technique: Techniquecervical spine CT Comparison: Cervical spine 12/20/2022 Findings: Mild anterolisthesis of C2 on C3, C3 and C4-C4 and C5. Retrolisthesis of C5 on C6. Normal height of the vertebral bodies. No acute fracture seen. Lateral masses of C1 align with the articular processes of C2 prevertebral soft tissues within normal limits Impression: No acute vertebral body fracture or traumatic malalignment. Please note that all CT scans at this facility use dose modulation, iterative reconstruction, and/or weight-based dosing when appropriate to reduce radiation dose to as low as reasonably achievable. Dictated by Gela Bhagat MD @ 06/30/2023 1:11:25 AM (Electronically Signed)
--- NOTE | 2023-06-29 23:17 | ED.NURSE ---
patients lower body, and feet covered in feces. Patient states that she has had diarrhea x2 days. Patient so weak that she is unable to assist with any movements in bed. Patient cleaned up with staff assistance. brief placed on patient
[2023-06-29 23:23] LABS: Troponin, Point-of-Care* 0.36 ng/ml (0.01-0.04)
[2023-06-29 23:28] LABS: Basophils Absolute Auto 0.01 K/uL (0.00-0.30); Basophils Percent Auto 0.1 % (0.0-3.0); Hematocrit 32.9 % (33.0-51.0); Hemoglobin* 11.1 gm/dL (12.0-16.0); Immature Granulocytes Abs Auto 0.04 K/uL (0.00-0.30); Immature Granulocytes Pct Auto 0.4 %; Lymphocytes Percent Auto 6.7 % (20-44); Mean Corpuscular HGB Conc 34 gm/dL (32-36); Mean Corpuscular Hemoglobin 35 pg (26-34); Mean Corpuscular Volume 102 fL (80-100); Monocytes Percent Auto 6.5 % (0.0-11.0); Neutrophils Percent Auto 86.3 % (42.0-72.0); Platelet Count* 148 K/uL (140-440); RDW Coefficient of Variation % 13.9 % (11.5-15.5); Red Blood Count 3.22 m/uL (4.00-5.20); White Blood Count* 10.82 K/uL (4.50-11.00)
[2023-06-29 23:32] LABS: Albumin* 3.9 g/dL (3.3-5.0); Chloride* 75 mmol/L (96-114); Sodium* 134 mmol/L (135-149)
[2023-06-29 23:34] LABS: Creatinine* 0.9 mg/dL (0.5-1.5); Estimated Glomerular Filt Rate 72 ml/min
[2023-06-29 23:35] LABS: Alanine Aminotransferase* 120 U/L (4-35); Alkaline Phosphatase* 165 U/L (40-150); Aspartate Amino Transferase* 242 U/L (12-35); Bilirubin Direct* 2.4 mg/dL (0.0-0.5); Bilirubin Total* 4.2 mg/dL (0.1-1.5); Blood Urea Nitrogen* 18 mg/dL (7-30); Carbon Dioxide* 35 mmol/L (20-32); Total Protein* 6.8 g/dL (6.0-8.3)
[2023-06-29 23:36] LABS: Glucose* 121 mg/dL (60-115)
[2023-06-29 23:38] LABS: C Reactive Protein* 1.4 mg/dL (0.5-1.0)
[2023-06-29] MEDS: 0.9 % SODIUM CHLORIDE 1000 ml 1,000 ML IV (23:39)
[2023-06-29 23:41] LABS: Acetaminophen* < 10.0 ug/mL (10.0-30.0); Ethanol* < 0.01 % (0.01-0.03); Salicylate* < 1.0 mg/dL (1.0-10)
[2023-06-29 23:42] LABS: Creatine Kinase* 2456 U/L (41-117); Potassium* 1.4 mmol/L (3.6-5.1)
[2023-06-29 23:45] LABS: Erythrocyte SedimentationRate* 6 mm/hr (2-20); Magnesium* 0.8 mg/dL (1.5-2.6)
[2023-06-29 23:48] LABS: Troponin I* 0.52 ng/mL (0.01-0.04)
[2023-06-29 23:49] LABS: Slide Review Reflex No
[2023-06-29] MEDS: POTASSIUM CHLORIDE 10 MEQ/100 ML PIGGYBACK 100 MEQ IVPB (23:50)
[2023-06-29] MEDS: MAGNESIUM IV 2 GM/50 ML PIGGYBACK IVPB (23:51)
[2023-06-30] VITALS (22 sets, daily range): BP systolic 110–169; BP diastolic 85–125; PULSE 86–154; RESP 24; TEMP 37; O2SAT 78–100
[2023-06-30] MEDS: POTASSIUM CHLORIDE 10 MEQ CAPSULE ER 40 MEQ PO (00:08)
[2023-06-30 00:19] LABS: HCO3 VBG 32 mmol/L (21-28); PCO2 VBG 43 mmHG (40-50); PO2 VBG 38.1 mmHG (25-47); pH VBG 7.479 (7.32-7.43)
[2023-06-30] MEDS: LORazepam 2 MG/ML inj 0.5 MG IVP ×2 (00:27→02:11)
[2023-06-30] MEDS: POTASSIUM CHLORIDE 10 MEQ/100 ML PIGGYBACK 100 MEQ IVPB ×2 (00:41→02:06)
--- NOTE | 2023-06-30 01:22 | ED.NURSE ---
Nurse to Nurse report given to Chemo ROSA at [facility]. Patient will be going to [id number]. Call RN at [phone] with updates on patients transport
[2023-06-30] MEDS: 0.9 % SODIUM CHLORIDE 1000 ml 1,000 ML IV (01:31)
--- NOTE | 2023-06-30 02:00 | ED.NURSE ---
patient reporting feeling Short of breath and like she cannot breathe. Patient sat up and repositioned in bed. MD Pham updated.
== END 2023-06-30 02:17 | disposition short-term general hospital (02) ==
PROVIDERS: Emergency Provider Family Medicine
DX: E87.6 Hypokalemia (principal); J96.90 Respiratory failure, unspecified, unspecified whether with hypoxia or hypercapnia; M62.82 Rhabdomyolysis; I48.0 Paroxysmal atrial fibrillation
CPT/HCPCS: 36415; 70450; 71046; 72125; 80048; 80076; 80143; 80179; 80306; 81001; 82077; 82550; 82803; 82962; 83605; 83735; 84484; 85025; 85651; 86140; 87086; 87493; 93005; 94761; 96365; 96375; 99285; 99291; 99292; A9270; J2060; J3475; J3480; J7030

== ENCOUNTER 2023-06-30 01:55 | Outpatient (CLI) | payer MEDICAID, SELFPAY | END 2023-06-30 01:56 | disposition home or self-care (01) | LOC: AMB 07-03 11:10 | PROVIDERS: Visit Provider Family Medicine | DX: I49.9 Cardiac arrhythmia, unspecified (principal); E87.6 Hypokalemia | CPT/HCPCS: A0425; A0434 ==

== ENCOUNTER 2023-10-27 20:34 | Outpatient (CLI) | payer MEDICAID, SELFPAY | END 2023-10-27 20:35 | disposition home or self-care (01) | PROVIDERS: Visit Provider Student in an Organized Health Care Education/Training Program | DX: R53.1 Weakness (principal) | CPT/HCPCS: A0425; A0427 ==

== ENCOUNTER 2023-10-27 21:10 | Inpatient (IN) | payer MEDICAID, SELFPAY ==
[2023-10-27] VITALS (8 sets, daily range): BP systolic 143–181; BP diastolic 100–126; PULSE 95–131; RESP 20–24; TEMP 36.5; O2SAT 90–96; BMI 17.5
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
[2023-10-27] MEDS: 0.9 % SODIUM CHLORIDE 1000 ml 1,000 ML IV ×2 (21:10→21:45)
[2023-10-27 21:28] LABS: Lactate* 3.9 mmol/L (0.5-1.9)
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
--- NOTE | 2023-10-27 21:29 | CRLHL7_ITS ---
For Patients: As a result of the Century Cures Act, medical imaging exams and procedure reports are released immediately into your electronic medical record. You may view this report before your referring provider. If you have questions, please contact your health care provider. CLINICAL HISTORY: Trauma TECHNIQUE: A CT volumetric examination of the face was performed without the use of intravenous contrast. FINDINGS: The orbital live are intact. The globes are normal in contour and symmetric in size. The zygomatic arches are intact. No retrobulbar hematoma. Trace left periorbital soft tissue edema. Mild minimally displaced age indeterminate nasal bone fractures. The live of the maxillary sinuses are intact. Scattered mucosal thickening of the paranasal sinuses. The pterygoid plates are intact. The mastoid air cells are clear. The middle ear cavities are clear. The temporomandibular joints and mandible are unremarkable. The nasopharyngeal contours are unremarkable. IMPRESSION: No acute fractures of the facial bones. Trace left periorbital soft tissue swelling. Please note that all CT scans at this facility use dose modulation, iterative reconstruction, and/or weight-based dosing when appropriate to reduce radiation dose to as low as reasonably achievable. Dictated by Ashok Hernández MD @ 10/27/2023 11:48:14 PM (Electronically Signed)
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
[2023-10-27 21:34] LABS: Basophils Absolute Auto 0.04 K/uL (0.00-0.30); Basophils Percent Auto 0.5 % (0.0-3.0); Hematocrit 34.9 % (33.0-51.0); Hemoglobin* 11.6 gm/dL (12.0-16.0); Immature Granulocytes Abs Auto 0.03 K/uL (0.00-0.30); Immature Granulocytes Pct Auto 0.4 %; Lymphocytes Percent Auto 8.9 % (20-44); Mean Corpuscular HGB Conc 33 gm/dL (32-36); Mean Corpuscular Hemoglobin 35 pg (26-34); Mean Corpuscular Volume 106 fL (80-100); Monocytes Percent Auto 8.7 % (0.0-11.0); Neutrophils Percent Auto 81.5 % (42.0-72.0); Platelet Count* 236 K/uL (140-440); White Blood Count* 7.94 K/uL (4.50-11.00)
[2023-10-27 21:36] LABS: Slide Review Reflex No
[2023-10-27 21:48] LABS: Albumin* 4.9 g/dL (3.3-5.0); Chloride* 100 mmol/L (96-114); Sodium* 143 mmol/L (135-149)
[2023-10-27 21:48] LABS: Creatinine, Point-of-Care* 0.5 mg/dl (0.6-1.3)
[2023-10-27 21:48] LABS: Troponin, Point-of-Care* 0.06 ng/ml (0.01-0.04)
[2023-10-27 21:49] LABS: Appearance Urine Clear (Clear); Bilirubin Urine Negative (Negative); Blood Urine 2+ (Negative); Color Urine Yellow (Yellow); Glucose Urine Trace (Negative); Ketones Urine 2+ (Negative); Leukocyte Esterase Urine Negative (Negative); Nitrite Urine Negative (Negative); Protein Urine 2+ (Negative); Specific Gravity Urine 1.025 (1.000-1.030); Urobilinogen Urine 0.2 (0.2-1.0)
[2023-10-27 21:50] LABS: Creatinine* 0.4 mg/dL (0.5-1.5); Est. Creatinine Clearance* 48.03; Estimated Glomerular Filt Rate 112 ml/min
[2023-10-27 21:51] LABS: Alanine Aminotransferase* 97 U/L (4-35); Alkaline Phosphatase* 122 U/L (40-150); Anion Gap 19 mEq/L (7-15); Aspartate Amino Transferase* 161 U/L (12-35); Bilirubin Total* 2.7 mg/dL (0.1-1.5); Blood Urea Nitrogen* 12 mg/dL (7-30); Calcium* 8.7 mg/dL (8.4-10.6); Carbon Dioxide* 24 mmol/L (20-32); Glucose* 158 mg/dL (60-115); Total Protein* 8.5 g/dL (6.0-8.3)
[2023-10-27 21:52] LABS: Creatine Kinase* 927 U/L (41-117)
[2023-10-27 21:56] LABS: Potassium* 2.8 mmol/L (3.6-5.1)
--- NOTE | 2023-10-27 22:02 | ED_ITS ---
HPI - General Adult General Date Seen: 10/27/23 Chief complaint: Fall/Minor Trauma Stated complaint: fall, spent extended time in water Time Seen by Provider: 10/27/23 21:34 Source: patient and EMS Mode of arrival: EMS Limitations: no limitations History of Present Illness HPI narrative: Patient is a 62-year-old female with a history of hypertension, high cholesterol, COPD, [place] presenting to emergency department after being found on the floor. She said she fell sometime after 10:00 yesterday morning and her bath tub. She is unable to get back up. She states she passed out denies how she fell. She states this has happened to her in the past. Her son went to go check on her and found on the ground EMS was called. When EMS arrived she was tachycardic and tachypneic satting 82% on room air. She was brought to room 8 as soon as EMS arrived. She has been able to answer all questions appropriately. She denies any pain at this time she does states she feels short of breath and was diagnosed with COPD in November of this year. She is a current smoker. Related Data Home Medications Medication Instructions Recorded Confirmed lisinopril .ROUTE 08/03/22 aspirin 81 mg tablet,delayed 162 mg PO BID 10/27/23 10/27/23 release dronabinol 2.5 mg capsule 2.5 mg PO BID 10/27/23 10/27/23 escitalopram oxalate 5 mg tablet 5 mg PO DAILY 10/27/23 10/27/23 losartan 25 mg tablet 25 mg PO DAILY 10/27/23 10/27/23 magnesium oxide 400 mg (241.3 mg 800 mg PO BID 10/27/23 10/27/23 magnesium) tablet metoprolol tartrate 25 mg tablet 25 mg PO DAILY 10/27/23 10/27/23 nitroglycerin 0.4 mg sublingual 0.4 - 0.8 mg sublingual Q5M angina 10/27/23 10/27/23 tablet pantoprazole 40 mg tablet,delayed 40 mg PO DAILY 10/27/23 10/27/23 release potassium chloride 20 mEq 20 meq PO QID 10/27/23 10/27/23 tablet,extended release(part/cryst) rosuvastatin 20 mg tablet 20 mg PO QPM 10/27/23 10/27/23 sertraline 50 mg tablet 50 mg PO DAILY 10/27/23 10/27/23 Allergies Allergy/AdvReac Type Severity Reaction Status Date / Time Penicillins Allergy Verified 10/27/23 21:57 Review of Systems Status of ROS: Reports: 10 or more systems reviewed and unremarkable except as noted in History and below [facility] Social History Smoking Status: Heavy tobacco smoker What tobacco products do you use: cigarettes Second hand tobacco smoke exposure: Yes How often do you have a drink containing alcohol: 4 or more times a week How many standard drinks containing alcohol do you have on a typical day: 1 or 2 AUDIT-C Alcohol total score: 4 Non-prescribed substance use: denies use Exam Narrative: Exam Narrative: Const: Well-nourished, Well-developed, in moderate distress Eyes: PERRL, no conjunctival injection, and symmetrical lids HENT: Atraumatic external nose and ears. Moist mucous membranes. Bruising around bilateral eyes Neck: Symmetric, trachea midline, No thyromegaly. CVS: Tachycardic, No murmurs or gallops. Peripheral pulses 2+ and equal in all extremities RESP: Crackles heard in right upper lobe, tachypneic GI: Nontender/Nondistended, No rebound or guarding. MSK:Extremities w/o deformity, Normal Active ROM Skin: Warm, Dry. No rashes or lesions. Neuro: Normal Muscle tone, No focal neurological deficits. Psych: Awake, Alert, & Oriented x3. Appropriate mood and affect. Const: Vital Signs, click to edit/add: Vital Signs - 24 hr 10/27/23 21:13 10/27/23 21:29 10/27/23 21:33 Temperature Pulse Rate 131 H 96 Pulse Rate [Right Pulse Oximeter] Respiratory Rate 24 22 Blood Pressure 181/126 H 169/117 H Blood Pressure [Ri ght Upper Arm] Pulse Oximetry 90 94 94 Oxygen Delivery Me thod Oxygen Flow Rate 10/27/23 21:34 10/27/23 21:43 10/27/23 22:33 Temperature 97.7 F Pulse Rate 95 Pulse Rate [Right Pulse Oximeter] 128 H Respiratory Rate 24 20 Blood Pressure 161/108 H Blood Pressure [Ri ght Upper Arm] 181/116 H Pulse Oximetry 92 95 96 Oxygen Delivery Me thod Nasal Cannula OxyMask Oxygen Flow Rate 5 4 10/27/23 23:16 10/27/23 23:31 10/28/23 00:01 Temperature Pulse Rate 102 H 99 94 Pulse Rate [Right Pulse Oximeter] Respiratory Rate 22 24 24 Blood Pressure 171/110 H 143/100 H 133/94 H Blood Pressure [Ri ght Upper Arm] Pulse Oximetry 92 93 95 Oxygen Delivery Me thod Oxygen Flow Rate 10/28/23 00:17 Temperature Pulse Rate 103 H Pulse Rate [Right Pulse Oximeter] Respiratory Rate 24 Blood Pressure 142/100 H Blood Pressure [Ri ght Upper Arm] Pulse Oximetry 94 Oxygen Delivery Me thod Oxygen Flow Rate Course Vital Signs Vital signs: Initial Vital Signs Pulse Rate 131 H 10/27/23 21:13 Respiratory Rate 24 10/27/23 21:13 Blood Pressure 181/126 H 10/27/23 21:13 Blood Pressure Mean 144 H 10/27/23 21:13 Pulse Oximetry 90 10/27/23 21:13 Vital Signs Pulse Rate 131 H 10/27/23 21:13 Respiratory Rate 24 10/27/23 21:13 Blood Pressure 181/126 H 10/27/23 21:13 Pulse Oximetry 90 10/27/23 21:13 Temperature 97.7 F 10/27/23 21:34 Pulse Rate 103 H 10/28/23 00:17 Respiratory Rate 24 10/28/23 00:17 Blood Pressure 142/100 H 10/28/23 00:17 Pulse Oximetry 94 10/28/23 00:17 Oxygen Delivery Method OxyMask 10/27/23 21:43 Oxygen Flow Rate 4 10/27/23 21:43 Medications Administered Medications: Generic Name Dose Route Start Last Admin Trade Name Freq PRN Reason Stop Dose Admin Potassium Chloride 10 meq in 100 mls @ 100 mls/hr 10/27/23 22:30 10/27/23 23:29 Potassium Chloride IVPB 10/28/23 03:59 Infused Q90M [place] Infusion Magnesium Sulfate 4 gm in 100 mls @ 25 mls/hr 10/27/23 23:53 10/28/23 00:28 Magnesium Iv IVPB 10/28/23 03:52 25 mls/hr ONCE ONE Administration Discontinued Medications Generic Name Dose Route Start Last Admin Trade Name Freq PRN Reason Stop Dose Admin Sodium Chloride 1,000 mls @ 1,000 mls/hr 10/27/23 21:45 10/27/23 22:10 0.9 % Sodium Chloride 1000 Ml IV 10/27/23 23:44 Infused .Q1H [place] Infusion Potassium Chloride 40 meq 10/27/23 21:58 10/28/23 00:28 Potassium Chloride 10 Meq Capsule Er PO 10/27/23 21:59 40 meq ONCE ONE Administration Medical Decision Making MDM Narrative Medical decision making narrative: Patient is 62-year-old female presenting for an episode of syncope and being on the ground for almost 36 hours. Is here as he is dizzy tachycardic in the 140s and satting 90% on 8 L nasal cannula. Two IVs were immediately placed an fluids were started. On exam she had some right upper lobe crackles which could be an aspiration concerning when she was on the ground for so long. Stat chest x-ray was ordered at bedside and reviewed by myself and I do not see any acute abnormalities. We did order a septic workup on this patient. Also reported care troponin and creatinine and. With his shortness of breath I am also concerned for a PE and will be doing a CTA of the chest. Will also order head, cervical, facial bone CT. Point of care troponin was 0.06 and point of care creatinine was 0.5. After the fluids her heart rate came down to the 90s in location ago back up to the low 100s to 120s. On the OxyMask set at 5 L he is satting 97%. Patient appears much better than when she 1st arrived. Lactate returned at 3.9 and we will trend this. CK came back at 927 and she is not appear to be in rhabdomyolysis. Urinalysis does not show signs of a UTI. Potassium is 2.8 and was given potassium to replenish this. I did speak to her son and [id number]. They state patient chronically has low potassium at 2.8 has relatively good for her. They also state last time she was in hospital she would have this same episode were heart rate ago the 90s to 140s back down to the 90s. They state all that was done for was metoprolol. They state that the patient's previous cardiac arrest was believed to be sec ondary to her electrolyte abnormalities. I spoke to the on-call provider for Cardiology at [facility]. I explained to her him her troponin changes and symptoms. He states that with her recent heart ariane ging from less than a year ago he is not believes she is having a myocardial infarction and is safe to keep at our hospital. Patient does have 3 acute to subacute nondisplaced rib fractures are not causing her any pain at this time. I spoke to nursing supervisor [facility] department who states that we are able to admit this patient here. I then spoke to Dr. Perez of [facility] and he accepted her for admission. Lab Data Labs: Lab Results 10/27/23 10/27/23 10/27/23 Range/Units 21:10 21:18 21:20 WBC 7.94 (4.50-11.00) K/uL RBC 3.30 L (4.00-5.20) m/uL Hgb 11.6 L (12.0-16.0) gm/dL Hct 34.9 (33.0-51.0) % MCV 106 H (80-100) fL MCH 35 H (26-34) pg MCHC 33 (32-36) gm/dL RDW Coeff of Katina 14.0 (11.5-15.5) % Plt Count 236 (140-440) K/uL Neut % (Auto) 81.5 H (42.0-72.0) % Lymph % (Auto) 8.9 L (20-44) % [place] % (Auto) 8.7 (0.0-11.0) % Eos % (Auto) 0.0 (0.0-7.0) % Baso % (Auto) 0.5 (0.0-3.0) % Neut # (Auto) 6.50 (1.7-7.0) K/uL Lymph # (Auto) 0.70 L (0.90-2.90) K/uL [place] # (Auto) 0.70 (0.00-0.90) K/UL Eos # (Auto) 0.00 (0.00-0.50) K/uL Baso # (Auto) 0.04 (0.00-0.30) K/uL Abs Immat Gran (auto) 0.03 (0.00-0.30) K/uL Imm/Tot Granulo (auto) 0.4 % Sodium Cancelled Potassium Chloride Carbon Dioxide Anion Gap BUN Creatinine Estimated Creat Clear Estimated GFR Glucose Lactate 3.9 H (0.5-1.9) mmol/L Calcium Magnesium (1.5-2.6) mg/dL Total Bilirubin (0.1-1.5) mg/dL AST (12-35) U/L ALT (4-35) U/L Alkaline Phosphatase (40-150) U/L Total Creatine Kinase (41-117) U/L Troponin I (0.01-0.04) ng/mL Total Protein (6.0-8.3) g/dL Albumin (3.3-5.0) g/dL Urine Color (Yellow) Urine Appearance (Clear) Urine pH (5.0-8.5) Ur Specific [place] (1.000-1.030) Urine Protein (Negative) Urine Glucose (UA) (Negative) Urine Ketones (Negative) Urine Blood (Negative) Urine Nitrite (Negative) Urine Bilirubin (Negative) Urine Urobilinogen (0.2-1.0) Ur Leukocyte Esterase (Negative) Urine RBC (0-2) Urine WBC (0-5) Ur Squamous Epith Cells (None-Few) Urine Bacteria (None) SARS-CoV-2 (PCR) (Negative) Influenza Type A (PCR) (Negative) Influenza Type B (PCR) (Negative) RSV (PCR) (Negative) Lab Acknowledgement POC Creatinine (0.6-1.3) mg/dl POC Troponin I 0.06 H (0.01-0.04) ng/ml 10/27/23 10/27/23 10/27/23 Range/Units 21:20 21:20 21:20 WBC (4.50-11.00) K/uL RBC (4.00-5.20) m/uL Hgb (12.0-16.0) gm/dL Hct (33.0-51.0) % MCV (80-100) fL MCH (26-34) pg MCHC (32-36) gm/dL RDW Coeff of Katina (11.5-15.5) % Plt Count (140-440) K/uL Neut % (Auto) (42.0-72.0) % Lymph % (Auto) (20-44) % [place] % (Auto) (0.0-11.0) % Eos % (Auto) (0.0-7.0) % Baso % (Auto) (0.0-3.0) % Neut # (Auto) (1.7-7.0) K/uL Lymph # (Auto) (0.90-2.90) K/uL [place] # (Auto) (0.00-0.90) K/UL Eos # (Auto) (0.00-0.50) K/uL Baso # (Auto) (0.00-0.30) K/uL Abs Immat Gran (auto) (0.00-0.30) K/uL Imm/Tot Granulo (auto) % Sodium 143 Potassium Cancelled 2.8 L* Chloride Cancelled 100 Carbon Dioxide Cancelled Anion Gap BUN Creatinine Estimated Creat Clear Estimated GFR Glucose Lactate (0.5-1.9) mmol/L Calcium Magnesium (1.5-2.6) mg/dL Total Bilirubin (0.1-1.5) mg/dL AST (12-35) U/L ALT (4-35) U/L Alkaline Phosphatase (40-150) U/L Total Creatine Kinase (41-117) U/L Troponin I (0.01-0.04) ng/mL Total Protein (6.0-8.3) g/dL Albumin (3.3-5.0) g/dL Urine Color (Yellow) Urine Appearance (Clear) Urine pH (5.0-8.5) Ur Specific [place] (1.000-1.030) Urine Protein (Negative) Urine Glucose (UA) (Negative) Urine Ketones (Negative) Urine Blood (Negative) Urine Nitrite (Negative) Urine Bilirubin (Negative) Urine Urobilinogen (0.2-1.0) Ur Leukocyte Esterase (Negative) Urine RBC (0-2) Urine WBC (0-5) Ur Squamous Epith Cells (None-Few) Urine Bacteria (None) SARS-CoV-2 (PCR) (Negative) Influenza Type A (PCR) (Negative) Influenza Type B (PCR) (Negative) RSV (PCR) (Negative) Lab Acknowledgement POC Creatinine (0.6-1.3) mg/dl POC Troponin I (0.01-0.04) ng/ml 10/27/23 10/27/23 10/27/23 Range/Units 21:20 21:20 21:20 WBC (4.50-11.00) K/uL RBC (4.00-5.20) m/uL Hgb (12.0-16.0) gm/dL Hct (33.0-51.0) % MCV (80-100) fL MCH (26-34) pg MCHC (32-36) gm/dL RDW Coeff of Katina (11.5-15.5) % Plt Count (140-440) K/uL Neut % (Auto) (42.0-72.0) % Lymph % (Auto) (20-44) % [place] % (Auto) (0.0-11.0) % Eos % (Auto) (0.0-7.0) % Baso % (Auto) (0.0-3.0) % Neut # (Auto) (1.7-7.0) K/uL Lymph # (Auto) (0.90-2.90) K/uL [place] # (Auto) (0.00-0.90) K/UL Eos # (Auto) (0.00-0.50) K/uL Baso # (Auto) (0.00-0.30) K/uL Abs Immat Gran (auto) (0.00-0.30) K/uL Imm/Tot Granulo (auto) % Sodium Potassium Chloride Carbon Dioxide 24 Anion Gap Cancelled 19 H BUN Cancelled 12 Creatinine Cancelled Estimated Creat Clear Estimated GFR Glucose Lactate (0.5-1.9) mmol/L Calcium Magnesium (1.5-2.6) mg/dL Total Bilirubin (0.1-1.5) mg/dL AST (12-35) U/L ALT (4-35) U/L Alkaline Phosphatase (40-150) U/L Total Creatine Kinase (41-117) U/L Troponin I (0.01-0.04) ng/mL Total Protein (6.0-8.3) g/dL Albumin (3.3-5.0) g/dL Urine Color (Yellow) Urine Appearance (Clear) Urine pH (5.0-8.5) Ur Specific [place] (1.000-1.030) Urine Protein (Negative) Urine Glucose (UA) (Negative) Urine Ketones (Negative) Urine Blood (Negative) Urine Nitrite (Negative) Urine Bilirubin (Negative) Urine Urobilinogen (0.2-1.0) Ur Leukocyte Esterase (Negative) Urine RBC (0-2) Urine WBC (0-5) Ur Squamous Epith Cells (None-Few) Urine Bacteria (None) SARS-CoV-2 (PCR) (Negative) Influenza Type A (PCR) (Negative) Influenza Type B (PCR) (Negative) RSV (PCR) (Negative) Lab Acknowledgement POC Creatinine (0.6-1.3) mg/dl POC Troponin I (0.01-0.04) ng/ml 10/27/23 10/27/23 10/27/23 Range/Units 21:20 21:20 21:20 WBC (4.50-11.00) K/uL RBC (4.00-5.20) m/uL Hgb (12.0-16.0) gm/dL Hct (33.0-51.0) % MCV (80-100) fL MCH (26-34) pg MCHC (32-36) gm/dL RDW Coeff of Katina (11.5-15.5) % Plt Count (140-440) K/uL Neut % (Auto) (42.0-72.0) % Lymph % (Auto) (20-44) % [place] % (Auto) (0.0-11.0) % Eos % (Auto) (0.0-7.0) % Baso % (Auto) (0.0-3.0) % Neut # (Auto) (1.7-7.0) K/uL Lymph # (Auto) (0.90-2.90) K/uL [place] # (Auto) (0.00-0.90) K/UL Eos # (Auto) (0.00-0.50) K/uL Baso # (Auto) (0.00-0.30) K/uL Abs Immat Gran (auto) (0.00-0.30) K/uL Imm/Tot Granulo (auto) % Sodium Potassium Chloride Carbon Dioxide Anion Gap BUN Creatinine 0.4 L Estimated Creat Clear Cancelled 48.03 Estimated GFR Cancelled 112 Glucose Cancelled Lactate (0.5-1.9) mmol/L Calcium Magnesium (1.5-2.6) mg/dL Total Bilirubin (0.1-1.5) mg/dL AST (12-35) U/L ALT (4-35) U/L Alkaline Phosphatase (40-150) U/L Total Creatine Kinase (41-117) U/L Troponin I (0.01-0.04) ng/mL Total Protein (6.0-8.3) g/dL Albumin (3.3-5.0) g/dL Urine Color (Yellow) Urine Appearance (Clear) Urine pH (5.0-8.5) Ur Specific [place] (1.000-1.030) Urine Protein (Negative) Urine Glucose (UA) (Negative) Urine Ketones (Negative) Urine Blood (Negative) Urine Nitrite (Negative) Urine Bilirubin (Negative) Urine Urobilinogen (0.2-1.0) Ur Leukocyte Esterase (Negative) Urine RBC (0-2) Urine WBC (0-5) Ur Squamous Epith Cells (None-Few) Urine Bacteria (None) SARS-CoV-2 (PCR) (Negative) Influenza Type A (PCR) (Negative) Influenza Type B (PCR) (Negative) RSV (PCR) (Negative) Lab Acknowledgement POC Creatinine (0.6-1.3) mg/dl POC Troponin I (0.01-0.04) ng/ml 10/27/23 10/27/23 10/27/23 Range/Units 21:20 21:20 21:37 WBC (4.50-11.00) K/uL RBC (4.00-5.20) m/uL Hgb (12.0-16.0) gm/dL Hct (33.0-51.0) % MCV (80-100) fL MCH (26-34) pg MCHC (32-36) gm/dL RDW Coeff of Katina (11.5-15.5) % Plt Count (140-440) K/uL Neut % (Auto) (42.0-72.0) % Lymph % (Auto) (20-44) % [place] % (Auto) (0.0-11.0) % Eos % (Auto) (0.0-7.0) % Baso % (Auto) (0.0-3.0) % Neut # (Auto) (1.7-7.0) K/uL Lymph # (Auto) (0.90-2.90) K/uL [place] # (Auto) (0.00-0.90) K/UL Eos # (Auto) (0.00-0.50) K/uL Baso # (Auto) (0.00-0.30) K/uL Abs Immat Gran (auto) (0.00-0.30) K/uL Imm/Tot Granulo (auto) % Sodium Potassium Chloride Carbon Dioxide Anion Gap BUN Creatinine Estimated Creat Clear Estimated GFR Glucose 158 H Lactate (0.5-1.9) mmol/L Calcium Cancelled 8.7 Magnesium (1.5-2.6) mg/dL Total Bilirubin 2.7 H (0.1-1.5) mg/dL AST 161 H (12-35) U/L ALT 97 H (4-35) U/L Alkaline Phosphatase 122 (40-150) U/L Total Creatine Kinase 927 H (41-117) U/L Troponin I 0.10 H* (0.01-0.04) ng/mL Total Protein 8.5 H (6.0-8.3) g/dL Albumin 4.9 (3.3-5.0) g/dL Urine Color (Yellow) Urine Appearance (Clear) Urine pH (5.0-8.5) Ur Specific [place] (1.000-1.030) Urine Protein (Negative) Urine Glucose (UA) (Negative) Urine Ketones (Negative) Urine Blood (Negative) Urine Nitrite (Negative) Urine Bilirubin (Negative) Urine Urobilinogen (0.2-1.0) Ur Leukocyte Esterase (Negative) Urine RBC (0-2) Urine WBC (0-5) Ur Squamous Epith Cells (None-Few) Urine Bacteria (None) SARS-CoV-2 (PCR) (Negative) Influenza Type A (PCR) (Negative) Influenza Type B (PCR) (Negative) RSV (PCR) (Negative) Lab Acknowledgement POC Creatinine 0.5 L (0.6-1.3) mg/dl POC Troponin I (0.01-0.04) ng/ml 10/27/23 10/27/23 10/27/23 Range/Units 21:49 22:55 23:29 WBC (4.50-11.00) K/uL RBC (4.00-5.20) m/uL Hgb (12.0-16.0) gm/dL Hct (33.0-51.0) % MCV (80-100) fL MCH (26-34) pg MCHC (32-36) gm/dL RDW Coeff of Katina (11.5-15.5) % Plt Count (140-440) K/uL Neut % (Auto) (42.0-72.0) % Lymph % (Auto) (20-44) % [place] % (Auto) (0.0-11.0) % Eos % (Auto) (0.0-7.0) % Baso % (Auto) (0.0-3.0) % Neut # (Auto) (1.7-7.0) K/uL Lymph # (Auto) (0.90-2.90) K/uL [place] # (Auto) (0.00-0.90) K/UL Eos # (Auto) (0.00-0.50) K/uL Baso # (Auto) (0.00-0.30) K/uL Abs Immat Gran (auto) (0.00-0.30) K/uL Imm/Tot Granulo (auto) % Sodium Potassium Chloride Carbon Dioxide Anion Gap BUN Creatinine Estimated Creat Clear Estimated GFR Glucose Lactate (0.5-1.9) mmol/L Calcium Magnesium 0.7 L* (1.5-2.6) mg/dL Total Bilirubin (0.1-1.5) mg/dL AST (12-35) U/L ALT (4-35) U/L Alkaline Phosphatase (40-150) U/L Total Creatine Kinase (41-117) U/L Troponin I 0.24 H* (0.01-0.04) ng/mL Total Protein (6.0-8.3) g/dL Albumin (3.3-5.0) g/dL Urine Color (Yellow) Urine Appearance (Clear) Urine pH (5.0-8.5) Ur Specific [place] (1.000-1.030) Urine Protein (Negative) Urine Glucose (UA) (Negative) Urine Ketones (Negative) Urine Blood (Negative) Urine Nitrite (Negative) Urine Bilirubin (Negative) Urine Urobilinogen (0.2-1.0) Ur Leukocyte Esterase (Negative) Urine RBC (0-2) Urine WBC (0-5) Ur Squamous Epith Cells (None-Few) Urine Bacteria (None) SARS-CoV-2 (PCR) Negative SARS-CoV-2 (Negative) Influenza Type A (PCR) Negative PCR FLU A (Negative) Influenza Type B (PCR) Negative PCR FLU B (Negative) RSV (PCR) Negative PCR RSV (Negative) Lab Acknowledgement Test Added POC Creatinine (0.6-1.3) mg/dl POC Troponin I (0.01-0.04) ng/ml 10/27/23 Range/Units Unknown WBC (4.50-11.00) K/uL RBC (4.00-5.20) m/uL Hgb (12.0-16.0) gm/dL Hct (33.0-51.0) % MCV (80-100) fL MCH (26-34) pg MCHC (32-36) gm/dL RDW Coeff of Katina (11.5-15.5) % Plt Count (140-440) K/uL Neut % (Auto) (42.0-72.0) % Lymph % (Auto) (20-44) % [place] % (Auto) (0.0-11.0) % Eos % (Auto) (0.0-7.0) % Baso % (Auto) (0.0-3.0) % Neut # (Auto) (1.7-7.0) K/uL Lymph # (Auto) (0.90-2.90) K/uL [place] # (Auto) (0.00-0.90) K/UL Eos # (Auto) (0.00-0.50) K/uL Baso # (Auto) (0.00-0.30) K/uL Abs Immat Gran (auto) (0.00-0.30) K/uL Imm/Tot Granulo (auto) % Sodium Potassium Chloride Carbon Dioxide Anion Gap BUN Creatinine Estimated Creat Clear Estimated GFR Glucose Lactate (0.5-1.9) mmol/L Calcium Magnesium (1.5-2.6) mg/dL Total Bilirubin (0.1-1.5) mg/dL AST (12-35) U/L ALT (4-35) U/L Alkaline Phosphatase (40-150) U/L Total Creatine Kinase (41-117) U/L Troponin I (0.01-0.04) ng/mL Total Protein (6.0-8.3) g/dL Albumin (3.3-5.0) g/dL Urine Color Yellow (Yellow) Urine Appearance Clear (Clear) Urine pH 6.0 (5.0-8.5) Ur Specific [place] 1.025 (1.000-1.030) Urine Protein 2+ A (Negative) Urine Glucose (UA) Trace A (Negative) Urine Ketones 2+ A (Negative) Urine Blood 2+ A (Negative) Urine Nitrite Negative (Negative) Urine Bilirubin Negative (Negative) Urine Urobilinogen 0.2 (0.2-1.0) Ur Leukocyte Esterase Negative (Negative) Urine RBC 2-5 A (0-2) Urine WBC 2-5 (0-5) Ur Squamous Epith Cells Few (None-Few) Urine Bacteria Few A (None) SARS-CoV-2 (PCR) (Negative) Influenza Type A (PCR) (Negative) Influenza Type B (PCR) (Negative) RSV (PCR) (Negative) Lab Acknowledgement POC Creatinine (0.6-1.3) mg/dl POC Troponin I (0.01-0.04) ng/ml Imaging Data CT scan head: Radiologist's impression: No intracranial hemorrhage or midline shift. No acute skull fractures. Stable examination. Please note that all CT scans at this facility use dose modulation, iterative reconstruction, and/or weight-based dosing when appropriate to reduce radiation dose to as low as reasonably achievable. Dictated by Ashok Hernández MD @ 10/27/2023 11:30:[address] scan cervical spine: Radiologist's impression: 1. No acute fracture or traumatic subluxation of the cervical spine. 2. Multilevel cervical spondylosis, most pronounced at C5-6 and C6-7 where there is at least moderate neural foraminal stenosis bilaterally. This would be better evaluated on MR in a nonemergent setting if clinically warranted. Please note that all CT scans at this facility use dose modulation, iterative reconstruction, and/or weight-based dosing when appropriate to reduce radiation dose to as low as reasonably achievable. Dictated by Ashok Hernández MD @ 10/27/2023 11:41:04 PM CTA chest: Radiologist's impression: 1. No pulmonary embolus. No CT evidence of right heart strain. 2. Acute to subacute minimally displaced fractures of the posterior right 9th, 10th and 11th ribs. No hemothorax or pneumothorax. 3. Small amount of aspirated debris within the trachea, several foci of mucoid impaction within the lung bases appeared Please note that all CT scans at this facility use dose modulation, iterative reconstruction, and/or weight-based dosing when appropriate to reduce radiation dose to as low as reasonably achievable. Dictated by Ashok Hernández MD @ 10/27/2023 11:58:[address] scan facial bones: Radiologist's impression: No acute fractures of the facial bones. Trace left periorbital soft tissue swelling. Please note that all CT scans at this facility use dose modulation, iterative reconstruction, and/or weight-based dosing when appropriate to reduce radiation dose to as low as reasonably achievable. Dictated by Ashok Hernández MD @ 10/27/2023 11:48:14 PM Chest x-ray: Radiologist's impression: Negative chest. Dictated by Bry Clarke MD @ 10/27/2023 10:00:01 PM ECG Data Attestation: I personally reviewed and interpreted this ECG as follows: Interpretation: EKG at 21:14: Sinus tachycardia with a rate of 132 beats per minute, normal intervals, normal axis, no T-wave abnormalities. There is some ST segment depressions in V3 and V4. This could be secondary to heart strain. There is a large amount of artifact EKG at 23:31: Sinus tachycardia rate 100 beats per minute, parent prolonged QT, normal [place] interval, normal axis, no T-wave abnormalities. I still see the ST depressions in V3 and V4 but they do not appear as pronounced. Critical Care Time Critical Care Time Critical Care Time: Yes Attestation: The patient required my highest level preparedness to intervene emergently and I personally spent this critical care time directly and personally managing the patient. This critical care time included: Obtaining a history; Examining the patient; Pulse oximetry; Ordering and reviewing of studies; Arranging urgent treatment with development of a management plan; Evaluation of patients response to treatment; Frequent reassessment discussions with other providers. This critical care time was performed to assess and manage the high probability of imminent life-threatening deterioration that could result in multiorgan failure. It was exclusive of separate billable procedures and treating other patients and teaching time. Total Critical Care Time in Minutes: 45 Discharge Plan Discharge Clinical Impression: Aspiration pneumonitis, Syncope, Elevated troponin, Acute hypokalemia, Hypomagnesemia Patient Disposition: Admitted As Observation Discharge Location: [facility] Condition: Improved Prescriptions: No Action lisinopril .ROUTE aspirin 81 mg tablet,delayed release (DR/EC) 162 mg PO BID dronabinol 2.5 mg capsule 2.5 mg PO BID potassium chloride 20 mEq tablet,ER particles/crystals 20 meq PO QID pantoprazole 40 mg tablet,delayed release (DR/EC) 40 mg PO DAILY nitroglycerin 0.4 mg tablet, sublingual 0.4 - 0.8 mg sublingual Q5M sertraline 50 mg tablet 50 mg PO DAILY rosuvastatin 20 mg tablet 20 mg PO QPM metoprolol tartrate 25 mg tablet 25 mg PO DAILY magnesium oxide 400 mg (241.3 mg magnesium) tablet 800 mg PO BID losartan 25 mg tablet 25 mg PO DAILY escitalopram oxalate 5 mg tablet 5 mg PO DAILY Follow Up/Referrals: Provider,Not a Local [Primary Care Provider] -
[2023-10-27 22:05] LABS: Bacteria Urine Few; Squamous Epithelial Cell Urine Few (None-Few)
[2023-10-27 22:36] LABS: PCR FLU A Negative PCR FLU A (Negative); PCR FLU B Negative PCR FLU B (Negative); PCR RSV Negative PCR RSV (Negative)
[2023-10-27] MEDS: POTASSIUM CHLORIDE 10 MEQ/100 ML PIGGYBACK 100 MEQ IVPB (22:37)
[2023-10-27 22:43] LABS: SARS PCR* Negative SARS-CoV-2 (Negative)
[2023-10-28] VITALS (19 sets, daily range): BP systolic 101–181; BP diastolic 63–116; PULSE 75–130; RESP 16–24; TEMP 36.4–37.1; O2SAT 90–96; BMI 18.1
[2023-10-28 00:05] LABS: Magnesium* 0.7 mg/dL (1.5-2.6); Troponin I* 0.24 ng/mL (0.01-0.04)
[2023-10-28] MEDS: MAGNESIUM IV 4 GM/100 ML PIGGYBACK IVPB (00:28)
[2023-10-28] MEDS: POTASSIUM CHLORIDE 10 MEQ CAPSULE ER 40 MEQ PO ×2 (00:28→10:16)
--- NOTE | 2023-10-28 03:41 | PM.IMHP1 ---
Hospitalist- H&P: HPI History of Present Illness Time Seen by Provider: 03:43 Date Seen: 10/28/23 Chief complaint: fall, spent extended time in water Narrative: Simona Velázquez is a 62 year old female With past history of alcohol dependence disorder (states she has been abstinent 2 months), COPD, tobaccoism, recurrent hypokalemia, history of polypectomy 1 of which may be malignant who lives alone and fell getting off the toilet about 10:00 in the morning on Saturday and spent 36 hours in the bathtub. She fell into the bathtub but there was no water in it. She did hit her head and sustained a laceration over the left eye. She is unable to get up on her own until she was found by her son the next day and brought her to the emergency room. She had hypoxia and tachycardia on presentation but this resolved with 2 L of fluid and some oxygen which brought her knees from 8 L nasal cannula down to 2 L nasal cannula and she feels significantly better. She was discovered to have marked electrolyte abnormalities with critical hypokalemia and critical hypomagnesemia. She endorses that she has lost about 20 pounds. She is being admitted now for correction of her marked profound electrolyte abnormalities as well as safety evaluation. She denies ever having a history of alcohol withdrawal seizures. States she has been abstinent for 2 months. Past medical history: Past history of alcohol dependence states states abstinent x2 months denies alcohol withdrawal history or prior treatment States she has had a heart attack in the past but she has never been catheterized States she has history of colon cancer after 7 polypectomy several months ago and one was reportedly cancerous and she is scheduled for follow-up colonoscopy History of essential hypertension History of tobaccoism History of COPD Family history noncontributory Social history: , lives alone, positive smoker smokes a pack a week , Denies alcohol use currently Retired retail Review of Systems Status of ROS: Reports: 10 or more systems reviewed and unremarkable except as noted in History and below COUNTS INCLUDE 234 BEDS AT THE [facility] PFS Social History What is your current living situation?: I presently have a place to live Problems where you live: no known problems Problems where you live details: NA In the past 12 months, utilities in danger of being shut off: no In past 12 months, lack of transportation kept you from medical appts, meetings, work, or getting things needed for daily living: no In the past 12 mos, have been you worried that your food would run out before you had money to buy more?: never true In the past 12 mos, the food you bought just didn't last and you didn't have money to buy more?: never true Highest level of school completed/degree received: Associate degree: academic program Smoking Status: Current every day smoker What tobacco products do you use: cigarettes Smoking packs per day: 0.25 Smoking cigarettes per day: 5.0 Years smoked: 20 Smoking pack-years: 5.00 Do you use any of these nicotine containing products: None Second hand tobacco smoke exposure: No How often do you have a drink containing alcohol: 2-4 times a month Alcohol type: hard liquor Alcohol type details: Rum and coke How many standard drinks containing alcohol do you have on a typical day: 1 or 2 How often do you have six or more drinks on one occasion: Never AUDIT-C Alcohol total score: 2 Non-prescribed substance use: denies use Caffeine: No How often does anyone, including family, friends and others, physically hurt you: never How often does anyone, including family, friends and others, insult or talk down to you: never How often does anyone, including family, friends and others, threaten you with harm: never How often does anyone, including family, friends and others, scream or curse at you: never service: No Meds Home Medications and Allergies Home Medications Medication Instructions Recorded Confirmed Type lisinopril .ROUTE 08/03/22 History aspirin 81 mg tablet,delayed 162 mg PO BID 10/27/23 10/27/23 History release dronabinol 2.5 mg capsule 2.5 mg PO BID 10/27/23 10/27/23 History escitalopram oxalate 5 mg tablet 5 mg PO DAILY 10/27/23 10/27/23 History losartan 25 mg tablet 25 mg PO DAILY 10/27/23 10/27/23 History magnesium oxide 400 mg (241.3 mg 800 mg PO BID 10/27/23 10/27/23 History magnesium) tablet metoprolol tartrate 25 mg tablet 25 mg PO DAILY 10/27/23 10/27/23 History nitroglycerin 0.4 mg sublingual 0.4 - 0.8 mg sublingual Q5M angina 10/27/23 10/27/23 History tablet pantoprazole 40 mg tablet,delayed 40 mg PO DAILY 10/27/23 10/27/23 History release potassium chloride 20 mEq 20 meq PO QID 10/27/23 10/27/23 History tablet,extended release(part/cryst) rosuvastatin 20 mg tablet 20 mg PO QPM 10/27/23 10/27/23 History sertraline 50 mg tablet 50 mg PO DAILY 10/27/23 10/27/23 History Allergies Allergy/AdvReac Type Severity Reaction Status Date / Time Penicillins Allergy Verified 10/27/23 21:57 Exam Narrative: Exam Narrative: Chronically ill-appearing cachectic with a flat affect vital signs as charted Head small abrasion left eyelid pupils equal and reactive to light sclera nonicteric oropharynx edentulous mucous membranes moist Neck: Supple no midline tenderness Lungs: Some coarse rhonchi at bases otherwise clear no wheezing Cor: Regular rate no murmur Abdomen: Soft nontender no masses per nurse exam Extremities marked muscular wasting bilateral knee abrasions no edema adequate perfusion Neurologic flat affect strength upper and lower normal no tremors cognitively intact Const: Vital Signs, click to edit/add: Vital Signs - 24 hr 10/27/23 21:13 10/27/23 21:29 10/27/23 21:33 Temperature Pulse Rate 131 H 96 Pulse Rate [Left R adial] Pulse Rate [Right Pulse Oximeter] Respiratory Rate 24 22 Blood Pressure 181/126 H 169/117 H Blood Pressure [Le ft Arm] Blood Pressure [Ri ght Upper Arm] Pulse Oximetry 90 94 94 Oxygen Delivery Me thod Oxygen Flow Rate 10/27/23 21:34 10/27/23 21:43 10/27/23 22:33 Temperature 97.7 F Pulse Rate 95 Pulse Rate [Left R adial] Pulse Rate [Right Pulse Oximeter] 128 H Respiratory Rate 24 20 Blood Pressure 161/108 H Blood Pressure [Le ft Arm] Blood Pressure [Ri ght Upper Arm] 181/116 H Pulse Oximetry 92 95 96 Oxygen Delivery Me thod Nasal Cannula OxyMask Oxygen Flow Rate 5 4 10/27/23 23:16 10/27/23 23:31 10/28/23 00:01 Temperature Pulse Rate 102 H 99 94 Pulse Rate [Left R adial] Pulse Rate [Right Pulse Oximeter] Respiratory Rate 22 24 24 Blood Pressure 171/110 H 143/100 H 133/94 H Blood Pressure [Le ft Arm] Blood Pressure [Ri ght Upper Arm] Pulse Oximetry 92 93 95 Oxygen Delivery Me thod Oxygen Flow Rate 10/28/23 00:17 10/28/23 01:09 10/28/23 01:31 Temperature 97.7 F 98.8 F Pulse Rate 103 H Pulse Rate [Left R adial] Pulse Rate [Right Pulse Oximeter] 104 H Respiratory Rate 24 24 20 Blood Pressure 142/100 H Blood Pressure [Le ft Arm] 160/116 H Blood Pressure [Ri ght Upper Arm] 181/116 H Pulse Oximetry 94 94 Oxygen Delivery Me thod OxyMask Oxygen Flow Rate 2 10/28/23 01:35 10/28/23 01:42 10/28/23 01:43 Temperature 98.8 F Pulse Rate Pulse Rate [Left R adial] 99 Pulse Rate [Right Pulse Oximeter] Respiratory Rate 20 20 Blood Pressure Blood Pressure [Le ft Arm] 160/116 H Blood Pressure [Ri ght Upper Arm] Pulse Oximetry 93 95 95 Oxygen Delivery Me thod OxyMask OxyMask Oxygen Flow Rate 2 2 Hospitalist - H&P: Result Labs Labs: Short CBC 10/27/23 Range/Units 21:20 WBC 7.94 (4.50-11.00) K/uL Hgb 11.6 L (12.0-16.0) gm/dL Hct 34.9 (33.0-51.0) % Plt Count 236 (140-440) K/uL BMP 10/27/23 10/27/23 10/27/23 21:20 21:20 21:20 Sodium Cancelled 143 Potassium Cancelled 2.8 L* Chloride Cancelled Carbon Dioxide BUN Creatinine Glucose Calcium 10/27/23 10/27/23 10/27/23 21:20 21:20 21:20 Sodium Potassium Chloride 100 Carbon Dioxide Cancelled 24 BUN Cancelled 12 Creatinine Cancelled Glucose Calcium 10/27/23 10/27/23 10/27/23 21:20 21:20 21:20 Sodium Potassium Chloride Carbon Dioxide BUN Creatinine 0.4 L Glucose Cancelled 158 H Calcium Cancelled 8.7 Cardiac Enzymes 10/27/23 10/27/23 Range/Units 21:20 22:55 Total Creatine Kinase 927 H (41-117) U/L Troponin I 0.10 H* 0.24 H* (0.01-0.04) ng/mL Liver Function 10/27/23 Range/Units 21:20 Total Bilirubin 2.7 H (0.1-1.5) mg/dL AST 161 H (12-35) U/L ALT 97 H (4-35) U/L Alkaline Phosphatase 122 (40-150) U/L Albumin 4.9 (3.3-5.0) g/dL Urine 10/27/23 Range/Units Unknown Urine Color Yellow (Yellow) Urine Appearance Clear (Clear) Urine pH 6.0 (5.0-8.5) Ur Specific [place] 1.025 (1.000-1.030) Urine Protein 2+ A (Negative) Urine Glucose (UA) Trace A (Negative) ECG Attestation: I personally reviewed and interpreted this ECG as follows: ECG interpretation date: 10/28/23 ECG interpretation time: 04:10 Prior ECG tracings: available for review Interpretation: 2331 [address] depression anterior and laterally, [place] 75 marked QT prolongation QT corrected 0.56 2114 sinus tach 100 bpm prolonged QT againanterior lateral ST depression Imaging CT- Other: Attestation: I have reviewed the pertinent imaging results. Radiologist's impression: CT head did not show any acute pathology CT face negative for fractures CT pulmonary angiogramMPRESSION: 1. No pulmonary embolus. No CT evidence of right heart strain. 2. Acute to subacute minimally displaced fractures of the posterior right 9th, 10th and 11th ribs. No hemothorax or pneumothorax. 3. Small amount of aspirated debris within the trachea, several foci of mucoid impaction within the lung bases appeared Assessment and Plan Assessment and plan (1) Hypomagnesemia: Status: Acute (2) Acute hypokalemia: Status: Acute (3) Elevated troponin: Status: Acute (4) Aspiration pneumonitis: Status: Acute (5) Malnutrition: Status: Acute (6) History of alcohol abuse: Status: Acute (7) Macrocytosis: Status: Acute (8) Syncope: Status: Acute Plan 62-year-old chronically ill appearing woman with history of alcohol dependence disorder, COPD, hypertension tobaccoism who fell after getting off the commode yesterday into her bathtub (which was dry) hitting her head and was unable to get up. She had an extended time of 36 hours before her son found her. She presents and was found to have profound hypokalemia hypomagnesemia mild elevation of the creatinine kinase and mild elevations of troponin. She is presented hypoxic and tachycardic. Her electrocardiogram showed marked ST depression anterior laterally and imaging showed acute or subacute rib fractures Troponin elevation etiology is unclear we will continue to trend may represent a cardiac strain or a non-STEMI. Her profound hypokalemic kalemia and hypomagnesia anemia will be repleted with IV replacement. 1. Admit to telemetry 2. Trend troponins 3. Replete potassium intravenously initially with 40 mEq over 6 hours but will likely need more 4. Replete magnesium with 4 g 5. Monitor for signs of alcohol withdrawal 6. Thiamine replacement and multivitamin daily 7. Nutritional evaluation for cachexia 8. Physical therapy evaluation 9. Continue baby aspirin daily continue metoprolol and losartan and rosuvastatin and sertraline and lisinopril 10. Echocardiogram 11. Full code 12. Sequential admit intermittent compression devices and enoxaparin 30 mg daily
[2023-10-28] MEDS: POTASSIUM CHLORIDE 10 MEQ/100 ML PIGGYBACK 100 MEQ IVPB ×4 (03:44→23:59)
[2023-10-28] MEDS: LACTATED RINGERS 1000 ML 1,000 ML 75 ML IV (04:09)
[2023-10-28] MEDS: THIAMINE 100 MG TABLET PO (04:23)
--- NOTE | 2023-10-28 04:46 | PC.NURSE ---
Pt came to floor @ 0100 with severe weakness. Pt is A2 to pivot to Bedside commode. Oriented x3. Pleasant and cooperative. Moderate to severe tremors bilat in both arms. Pt has bruises both knees. Red area on coccyx covered with mepolex. Bruises to both eyes.
[2023-10-28 08:41] LABS: HCO3 VBG 22 mmol/L (21-28); Ionized Calcium* 0.94 mmol/L (1.11-1.30); PCO2 VBG 32 mmHG (40-50); PO2 VBG 36.6 mmHG (25-47); pH VBG 7.438 (7.32-7.43)
[2023-10-28 08:43] LABS: Basophils Percent Auto 0.2 % (0.0-3.0); Hematocrit 34.1 % (33.0-51.0); Hemoglobin* 11.2 gm/dL (12.0-16.0); Immature Granulocytes Pct Auto 0.4 %; Lymphocytes Percent Auto 4.5 % (20-44); Mean Corpuscular HGB Conc 33 gm/dL (32-36); Mean Corpuscular Hemoglobin 35 pg (26-34); Mean Corpuscular Volume 107 fL (80-100); Monocytes Percent Auto 5.7 % (0.0-11.0); Neutrophils Percent Auto 89.2 % (42.0-72.0); Platelet Count* 244 K/uL (140-440); RDW Coefficient of Variation % 14.1 % (11.5-15.5); White Blood Count* 11.32 K/uL (4.50-11.00)
[2023-10-28 08:47] LABS: Slide Review Reflex No
[2023-10-28 08:59] LABS: Albumin* 4.6 g/dL (3.3-5.0); Chloride* 95 mmol/L (96-114); Sodium* 138 mmol/L (135-149)
[2023-10-28 09:02] LABS: Creatinine* 0.5 mg/dL (0.5-1.5); Estimated Glomerular Filt Rate 106 ml/min
[2023-10-28 09:03] LABS: Alanine Aminotransferase* 85 U/L (4-35); Alkaline Phosphatase* 109 U/L (40-150); Anion Gap 22 mEq/L (7-15); Aspartate Amino Transferase* 124 U/L (12-35); Bilirubin Direct* 0.7 mg/dL (0.0-0.5); Bilirubin Total* 2.6 mg/dL (0.1-1.5); Blood Urea Nitrogen* 9 mg/dL (7-30); Carbon Dioxide* 21 mmol/L (20-32); Glucose* 104 mg/dL (60-115); Phosphorus* 3.2 mg/dL (2.5-4.5); Total Protein* 7.7 g/dL (6.0-8.3)
[2023-10-28 09:05] LABS: C Reactive Protein* 3.5 mg/dL (0.5-1.0); Iron* 49 ug/dL (37-170); Prothrombin Time 13.8 Seconds
[2023-10-28 09:11] LABS: Amphetamine Screen Urine Negative (Negative); Barbiturate Screen Urine Negative (Negative); Benzodiazepines Screen Urine Negative (Negative); Cannabinoid Screen Urine Negative (Negative); Cocaine Screen Urine Negative (Negative); Methadone Screen Urine Negative (Negative); Methamphetamines Screen Urine Negative (Negative); Opiate Screen Urine Negative (Negative); Oxycodone Screen Urine Negative (Negative); Phencyclidine Screen Urine Negative (Negative); Tricyclic Antidepressant Urine Negative (Negative)
[2023-10-28 09:13] LABS: Percent Iron Saturation 20 % (20-50); Total Iron Binding Capacity 250 ug/dL (265-497)
[2023-10-28] MEDS: METOPROLOL TARTRATE 25 MG TABLET 50 MG PO ×2 (09:13→09:19)
[2023-10-28] MEDS: OMEPRAZOLE 20 MG CAPSULE DR 40 MG PO (09:13)
[2023-10-28] MEDS: ASPIRIN 81 MG TABLET EC 162 MG PO (09:13)
[2023-10-28] MEDS: MAGNESIUM OXIDE 400 MG TABLET 800 MG PO ×2 (09:13→21:10)
[2023-10-28] MEDS: NICOTINE 14 mg PATCH 1 PATCH TOPICAL (09:13)
[2023-10-28] MEDS: SODIUM CHLORIDE 0.9 % (FLUSH) 10 ML SYRINGE 5 ML IVF ×3 (09:14→21:12)
[2023-10-28] MEDS: SERTRALINE 50 MG TABLET PO (09:14)
[2023-10-28] MEDS: THIAMINE 250 MG in 0.9 % SODIUM CHLORIDE 100 ml 100 ML 102.5 MG IVPB ×3 (09:15→21:12)
[2023-10-28 09:16] LABS: Lipase* 2029 U/L (23-300); Potassium* 2.1 mmol/L (3.6-5.1)
[2023-10-28 09:17] LABS: NT Pro B Type NatriureticPept* 10700 pg/mL
[2023-10-28 09:36] LABS: Thyroid Stimulating Hormone* 0.247 uIU/mL (0.270-4.20)
[2023-10-28] MEDS: OXYCODONE 5 MG TABLET PO ×2 (09:39→14:21)
--- NOTE | 2023-10-28 09:45 | P.IMPN_ITS ---
Progress Note: A&P Assessment and plan (1) Syncope: Problem details: Presented with fall in bathroom; possible syncope vs presyncope; +generalized weakness Status: Acute Assessment and Plan: 10/28: Tele; echo; see details below; will need therapy evaluation and SW assistance anticipate will need short term rehab and longterm home care services (2) Aspiration pneumonitis: Status: Acute Assessment and Plan: 10/28: initial presentation thought to be chemical aspiration pneumonitis however this morning WBC increasing will treat as possible aspiration pneumonia; PCN allergy noted will treat with ceftriaxone and flagyl; check blood cx per UTD recs and sputum cx (3) Rhabdomyolysis: Problem details: CK trending up Status: Acute Assessment and Plan: 10/28: Continue IVF; trend CK/electrolytes (4) Diarrhea: Status: Acute Assessment and Plan: 10/28: Check c diff and stool culture; likely contributing to electrolyte abnormalities (5) Elevated troponin: Status: Acute Assessment and Plan: 10/28: suspect Type II NSTEMI for acute illness, electrolyte abnormalities; denies chest pain, pressure, sob; will trend trop till peaked/troughed; will give aspirin, tele, echo; repeat EKG (6) Hypomagnesemia: Problem details: continue electrolyte replacement Status: Acute (7) Acute hypokalemia: Problem details: continue electrolyte replacement Status: Acute (8) History of alcohol abuse: Problem details: states last drink over one month ago; elevated LFTs, will trend; check RUQ US abdom in AM abdomen soft, nt, nd, Status: Acute (9) Alcohol withdrawal: Problem details: 10/28: addendum; spoke with son he states mother drinks Rum and Coke daily and is not honest about her drinking; will continue CIWA protocol Status: Acute Subjective Date Seen: 10/28/23 Interval history: patient admitted this morning for fall She denies alcohol use; states last drink one month ago; denies hx of alcohol withdrawal sz lives alone; son checks in on her potassium 2.1 this morning denies chest pain denies sob endorses liquid diarrhea Spoke with son; spoke with son he states mother drinks Rum and Coke daily and is not honest about her drinking Exam Narrative: Exam Narrative: Gen: no acute distress; disheveled appearance HEENT:EOMI mmm; +periorbital ecchymosis CV: tachycardic normal s1 s2 Lungs: CTAB Abd: Soft,nt, nd Neuro: Alert, oriented, CN grossly intact; nonfocal screening?exam Psych: appropriate affect MSK: age appropriate muscle mass Const: Vital Signs, click to edit/add: Vital Signs - 24 hr 10/27/23 21:13 10/27/23 21:29 10/27/23 21:33 Temperature Pulse Rate 131 H 96 Pulse Rate [Left R adial] Pulse Rate [Right Pulse Oximeter] Respiratory Rate 24 22 Blood Pressure 181/126 H 169/117 H Blood Pressure [Le ft Arm] Blood Pressure [Ri ght Upper Arm] Pulse Oximetry 90 94 94 Oxygen Delivery Me thod Oxygen Flow Rate 10/27/23 21:34 10/27/23 21:43 10/27/23 22:33 Temperature 97.7 F Pulse Rate 95 Pulse Rate [Left R adial] Pulse Rate [Right Pulse Oximeter] 128 H Respiratory Rate 24 20 Blood Pressure 161/108 H Blood Pressure [Le ft Arm] Blood Pressure [Ri ght Upper Arm] 181/116 H Pulse Oximetry 92 95 96 Oxygen Delivery Me thod Nasal Cannula OxyMask Oxygen Flow Rate 5 4 10/27/23 23:16 10/27/23 23:31 10/28/23 00:01 Temperature Pulse Rate 102 H 99 94 Pulse Rate [Left R adial] Pulse Rate [Right Pulse Oximeter] Respiratory Rate 22 24 24 Blood Pressure 171/110 H 143/100 H 133/94 H Blood Pressure [Le ft Arm] Blood Pressure [Ri ght Upper Arm] Pulse Oximetry 92 93 95 Oxygen Delivery Me thod Oxygen Flow Rate 10/28/23 00:17 10/28/23 01:09 10/28/23 01:31 Temperature 97.7 F 98.8 F Pulse Rate 103 H Pulse Rate [Left R adial] Pulse Rate [Right Pulse Oximeter] 104 H Respiratory Rate 24 24 20 Blood Pressure 142/100 H Blood Pressure [Le ft Arm] 160/116 H Blood Pressure [Ri ght Upper Arm] 181/116 H Pulse Oximetry 94 94 Oxygen Delivery Me thod OxyMask Oxygen Flow Rate 2 10/28/23 01:35 10/28/23 01:42 10/28/23 01:43 Temperature 98.8 F Pulse Rate Pulse Rate [Left R adial] 99 Pulse Rate [Right Pulse Oximeter] Respiratory Rate 20 20 Blood Pressure Blood Pressure [Le ft Arm] 160/116 H Blood Pressure [Ri ght Upper Arm] Pulse Oximetry 93 95 95 Oxygen Delivery Me thod OxyMask OxyMask Oxygen Flow Rate 2 2 10/28/23 03:56 10/28/23 08:00 Temperature 98.8 F 97.5 F L Pulse Rate Pulse Rate [Left R adial] 130 H Pulse Rate [Right Pulse Oximeter] Respiratory Rate 20 16 Blood Pressure Blood Pressure [Le ft Arm] 160/116 H 138/102 H Blood Pressure [Ri ght Upper Arm] Pulse Oximetry 95 90 Oxygen Delivery Me thod OxyMask Room Air Oxygen Flow Rate 2 Labs Labs: Laboratory Results - last 24 hr 10/27/23 10/27/23 10/27/23 21:10 21:18 21:20 WBC 7.94 RBC 3.30 L Hgb 11.6 L Hct 34.9 MCV 106 H MCH 35 H MCHC 33 RDW Coeff of Katina 14.0 Plt Count 236 Neut % (Auto) 81.5 H Lymph % (Auto) 8.9 L [place] % (Auto) 8.7 Eos % (Auto) 0.0 Baso % (Auto) 0.5 Neut # (Auto) 6.50 Lymph # (Auto) 0.70 L [place] # (Auto) 0.70 Eos # (Auto) 0.00 Baso # (Auto) 0.04 Abs Immat Gran (auto) 0.03 Imm/Tot Granulo (auto) 0.4 INR VBG pH VBG pCO2 VBG pO2 VBG HCO3 Sodium Cancelled Potassium Chloride Carbon Dioxide Anion Gap BUN Creatinine Estimated Creat Clear Estimated GFR Glucose Lactate 3.9 H Calcium Ionized Calcium Sharyn Phosphorus Magnesium Iron TIBC % Saturation Total Bilirubin Direct Bilirubin AST ALT Alkaline Phosphatase Total Creatine Kinase Troponin I C-Reactive Protein NT-Pro-B Natriuret Pep Total Protein Albumin Lipase TSH Urine Color Urine Appearance Urine pH Ur Specific [place] Urine Protein Urine Glucose (UA) Urine Ketones Urine Blood Urine Nitrite Urine Bilirubin Urine Urobilinogen Ur Leukocyte Esterase Urine RBC Urine WBC Ur Squamous Epith Cells Urine Bacteria Urine Opiates Screen Ur Buprenorphine Scrn Ur Oxycodone Screen Urine Methadone Screen Ur Propoxyphene Screen Ur Barbiturates Screen U Tricyclic Antidepress Ur Phencyclidine Scrn Ur Amphetamines Screen U Methamphetamines Scrn U Benzodiazepines Scrn Urine Cocaine Screen U Marijuana (THC) Screen Ur Drug Screen Comment SARS-CoV-2 (PCR) Influenza Type A (PCR) Influenza Type B (PCR) RSV (PCR) Lab Acknowledgement POC Creatinine POC Troponin I 0.06 H 10/27/23 10/27/23 10/27/23 21:20 21:20 21:20 WBC RBC Hgb Hct MCV MCH MCHC RDW Coeff of Katina Plt Count Neut % (Auto) Lymph % (Auto) [place] % (Auto) Eos % (Auto) Baso % (Auto) Neut # (Auto) Lymph # (Auto) [place] # (Auto) Eos # (Auto) Baso # (Auto) Abs Immat Gran (auto) Imm/Tot Granulo (auto) INR VBG pH VBG pCO2 VBG pO2 VBG HCO3 Sodium 143 Potassium Cancelled 2.8 L* Chloride Cancelled 100 Carbon Dioxide Cancelled Anion Gap BUN Creatinine Estimated Creat Clear Estimated GFR Glucose Lactate Calcium Ionized Calcium Sharyn Phosphorus Magnesium Iron TIBC % Saturation Total Bilirubin Direct Bilirubin AST ALT Alkaline Phosphatase Total Creatine Kinase Troponin I C-Reactive Protein NT-Pro-B Natriuret Pep Total Protein Albumin Lipase TSH Urine Color Urine Appearance Urine pH Ur Specific [place] Urine Protein Urine Glucose (UA) Urine Ketones Urine Blood Urine Nitrite Urine Bilirubin Urine Urobilinogen Ur Leukocyte Esterase Urine RBC Urine WBC Ur Squamous Epith Cells Urine Bacteria Urine Opiates Screen Ur Buprenorphine Scrn Ur Oxycodone Screen Urine Methadone Screen Ur Propoxyphene Screen Ur Barbiturates Screen U Tricyclic Antidepress Ur Phencyclidine Scrn Ur Amphetamines Screen U Methamphetamines Scrn U Benzodiazepines Scrn Urine Cocaine Screen U Marijuana (THC) Screen Ur Drug Screen Comment SARS-CoV-2 (PCR) Influenza Type A (PCR) Influenza Type B (PCR) RSV (PCR) Lab Acknowledgement POC Creatinine POC Troponin I 10/27/23 10/27/23 10/27/23 21:20 21:20 21:20 WBC RBC Hgb Hct MCV MCH MCHC RDW Coeff of Katina Plt Count Neut % (Auto) Lymph % (Auto) [place] % (Auto) Eos % (Auto) Baso % (Auto) Neut # (Auto) Lymph # (Auto) [place] # (Auto) Eos # (Auto) Baso # (Auto) Abs Immat Gran (auto) Imm/Tot Granulo (auto) INR VBG pH VBG pCO2 VBG pO2 VBG HCO3 Sodium Potassium Chloride Carbon Dioxide 24 Anion Gap Cancelled 19 H BUN Cancelled 12 Creatinine Cancelled Estimated Creat Clear Estimated GFR Glucose Lactate Calcium Ionized Calcium Sharyn Phosphorus Magnesium Iron TIBC % Saturation Total Bilirubin Direct Bilirubin AST ALT Alkaline Phosphatase Total Creatine Kinase Troponin I C-Reactive Protein NT-Pro-B Natriuret Pep Total Protein Albumin Lipase TSH Urine Color Urine Appearance Urine pH Ur Specific [place] Urine Protein Urine Glucose (UA) Urine Ketones Urine Blood Urine Nitrite Urine Bilirubin Urine Urobilinogen Ur Leukocyte Esterase Urine RBC Urine WBC Ur Squamous Epith Cells Urine Bacteria Urine Opiates Screen Ur Buprenorphine Scrn Ur Oxycodone Screen Urine Methadone Screen Ur Propoxyphene Screen Ur Barbiturates Screen U Tricyclic Antidepress Ur Phencyclidine Scrn Ur Amphetamines Screen U Methamphetamines Scrn U Benzodiazepines Scrn Urine Cocaine Screen U Marijuana (THC) Screen Ur Drug Screen Comment SARS-CoV-2 (PCR) Influenza Type A (PCR) Influenza Type B (PCR) RSV (PCR) Lab Acknowledgement POC Creatinine POC Troponin I 10/27/23 10/27/23 10/27/23 21:20 21:20 21:20 WBC RBC Hgb Hct MCV MCH MCHC RDW Coeff of Katina Plt Count Neut % (Auto) Lymph % (Auto) [place] % (Auto) Eos % (Auto) Baso % (Auto) Neut # (Auto) Lymph # (Auto) [place] # (Auto) Eos # (Auto) Baso # (Auto) Abs Immat Gran (auto) Imm/Tot Granulo (auto) INR VBG pH VBG pCO2 VBG pO2 VBG HCO3 Sodium Potassium Chloride Carbon Dioxide Anion Gap BUN Creatinine 0.4 L Estimated Creat Clear Cancelled 48.03 Estimated GFR Cancelled 112 Glucose Cancelled Lactate Calcium Ionized Calcium Sharyn Phosphorus Magnesium Iron TIBC % Saturation Total Bilirubin Direct Bilirubin AST ALT Alkaline Phosphatase Total Creatine Kinase Troponin I C-Reactive Protein NT-Pro-B Natriuret Pep Total Protein Albumin Lipase TSH Urine Color Urine Appearance Urine pH Ur Specific [place] Urine Protein Urine Glucose (UA) Urine Ketones Urine Blood Urine Nitrite Urine Bilirubin Urine Urobilinogen Ur Leukocyte Esterase Urine RBC Urine WBC Ur Squamous Epith Cells Urine Bacteria Urine Opiates Screen Ur Buprenorphine Scrn Ur Oxycodone Screen Urine Methadone Screen Ur Propoxyphene Screen Ur Barbiturates Screen U Tricyclic Antidepress Ur Phencyclidine Scrn Ur Amphetamines Screen U Methamphetamines Scrn U Benzodiazepines Scrn Urine Cocaine Screen U Marijuana (THC) Screen Ur Drug Screen Comment SARS-CoV-2 (PCR) Influenza Type A (PCR) Influenza Type B (PCR) RSV (PCR) Lab Acknowledgement POC Creatinine POC Troponin I 10/27/23 10/27/23 10/27/23 21:20 21:20 21:37 WBC RBC Hgb Hct MCV MCH MCHC RDW Coeff of Katina Plt Count Neut % (Auto) Lymph % (Auto) [place] % (Auto) Eos % (Auto) Baso % (Auto) Neut # (Auto) Lymph # (Auto) [place] # (Auto) Eos # (Auto) Baso # (Auto) Abs Immat Gran (auto) Imm/Tot Granulo (auto) INR VBG pH VBG pCO2 VBG pO2 VBG HCO3 Sodium Potassium Chloride Carbon Dioxide Anion Gap BUN Creatinine Estimated Creat Clear Estimated GFR Glucose 158 H Lactate Calcium Cancelled 8.7 Ionized Calcium Sharyn Phosphorus Magnesium Iron TIBC % Saturation Total Bilirubin 2.7 H Direct Bilirubin AST 161 H ALT 97 H Alkaline Phosphatase 122 Total Creatine Kinase 927 H Troponin I 0.10 H* C-Reactive Protein NT-Pro-B Natriuret Pep Total Protein 8.5 H Albumin 4.9 Lipase TSH Urine Color Urine Appearance Urine pH Ur Specific [place] Urine Protein Urine Glucose (UA) Urine Ketones Urine Blood Urine Nitrite Urine Bilirubin Urine Urobilinogen Ur Leukocyte Esterase Urine RBC Urine WBC Ur Squamous Epith Cells Urine Bacteria Urine Opiates Screen Ur Buprenorphine Scrn Ur Oxycodone Screen Urine Methadone Screen Ur Propoxyphene Screen Ur Barbiturates Screen U Tricyclic Antidepress Ur Phencyclidine Scrn Ur Amphetamines Screen U Methamphetamines Scrn U Benzodiazepines Scrn Urine Cocaine Screen U Marijuana (THC) Screen Ur Drug Screen Comment SARS-CoV-2 (PCR) Influenza Type A (PCR) Influenza Type B (PCR) RSV (PCR) Lab Acknowledgement POC Creatinine 0.5 L POC Troponin I 10/27/23 10/27/23 10/27/23 21:49 22:55 23:29 WBC RBC Hgb Hct MCV MCH MCHC RDW Coeff of Katina Plt Count Neut % (Auto) Lymph % (Auto) [place] % (Auto) Eos % (Auto) Baso % (Auto) Neut # (Auto) Lymph # (Auto) [place] # (Auto) Eos # (Auto) Baso # (Auto) Abs Immat Gran (auto) Imm/Tot Granulo (auto) INR VBG pH VBG pCO2 VBG pO2 VBG HCO3 Sodium Potassium Chloride Carbon Dioxide Anion Gap BUN Creatinine Estimated Creat Clear Estimated GFR Glucose Lactate Calcium Ionized Calcium Sharyn Phosphorus Magnesium 0.7 L* Iron TIBC % Saturation Total Bilirubin Direct Bilirubin AST ALT Alkaline Phosphatase Total Creatine Kinase Troponin I 0.24 H* C-Reactive Protein NT-Pro-B Natriuret Pep Total Protein Albumin Lipase TSH Urine Color Urine Appearance Urine pH Ur Specific [place] Urine Protein Urine Glucose (UA) Urine Ketones Urine Blood Urine Nitrite Urine Bilirubin Urine Urobilinogen Ur Leukocyte Esterase Urine RBC Urine WBC Ur Squamous Epith Cells Urine Bacteria Urine Opiates Screen Ur Buprenorphine Scrn Ur Oxycodone Screen Urine Methadone Screen Ur Propoxyphene Screen Ur Barbiturates Screen U Tricyclic Antidepress Ur Phencyclidine Scrn Ur Amphetamines Screen U Methamphetamines Scrn U Benzodiazepines Scrn Urine Cocaine Screen U Marijuana (THC) Screen Ur Drug Screen Comment SARS-CoV-2 (PCR) Negative SARS-CoV-2 Influenza Type A (PCR) Negative PCR FLU A Influenza Type B (PCR) Negative PCR FLU B RSV (PCR) Negative PCR RSV Lab Acknowledgement Test Added POC Creatinine POC Troponin I 10/27/23 10/28/23 10/28/23 Unknown 07:51 08:25 WBC 11.32 H RBC 3.20 L Hgb 11.2 L Hct 34.1 MCV 107 H MCH 35 H MCHC 33 RDW Coeff of Katina 14.1 Plt Count 244 Neut % (Auto) 89.2 H Lymph % (Auto) 4.5 L [place] % (Auto) 5.7 Eos % (Auto) 0.0 Baso % (Auto) 0.2 Neut # (Auto) 10.10 H Lymph # (Auto) 0.50 L [place] # (Auto) 0.60 Eos # (Auto) 0.00 Baso # (Auto) 0.00 Abs Immat Gran (auto) 0.00 Imm/Tot Granulo (auto) 0.4 INR 1.00 VBG pH 7.438 H VBG pCO2 32 L VBG pO2 36.6 VBG HCO3 22 Sodium 138 Potassium 2.1 L* Chloride 95 L Carbon Dioxide 21 Anion Gap 22 H BUN 9 Creatinine 0.5 Estimated Creat Clear 49.70 Estimated GFR 106 Glucose 104 Lactate Cancelled Calcium 8.0 L Ionized Calcium Sharyn 0.94 L Phosphorus 3.2 Magnesium 2.0 Iron 49 TIBC 250 L % Saturation 20 Total Bilirubin 2.6 H Direct Bilirubin 0.7 H AST 124 H ALT 85 H Alkaline Phosphatase 109 Total Creatine Kinase Troponin I C-Reactive Protein 3.5 H NT-Pro-B Natriuret Pep 89932 Total Protein 7.7 Albumin 4.6 Lipase 2029 H TSH 0.247 L Urine Color Yellow Urine Appearance Clear Urine pH 6.0 Ur Specific [place] 1.025 Urine Protein 2+ A Urine Glucose (UA) Trace A Urine Ketones 2+ A Urine Blood 2+ A Urine Nitrite Negative Urine Bilirubin Negative Urine Urobilinogen 0.2 Ur Leukocyte Esterase Negative Urine RBC 2-5 A Urine WBC 2-5 Ur Squamous Epith Cells Few Urine Bacteria Few A Urine Opiates Screen Negative Ur Buprenorphine Scrn Ur Oxycodone Screen Negative Urine Methadone Screen Negative Ur Propoxyphene Screen Negative Ur Barbiturates Screen Negative U Tricyclic Antidepress Negative Ur Phencyclidine Scrn Negative Ur Amphetamines Screen Negative U Methamphetamines Scrn Negative U Benzodiazepines Scrn Negative Urine Cocaine Screen Negative U Marijuana (THC) Screen Negative Ur Drug Screen Comment See Note SARS-CoV-2 (PCR) Influenza Type A (PCR) Influenza Type B (PCR) RSV (PCR) Lab Acknowledgement Test Added POC Creatinine POC Troponin I 10/28/23 Unknown WBC RBC Hgb Hct MCV MCH MCHC RDW Coeff of Katina Plt Count Neut % (Auto) Lymph % (Auto) [place] % (Auto) Eos % (Auto) Baso % (Auto) Neut # (Auto) Lymph # (Auto) [place] # (Auto) Eos # (Auto) Baso # (Auto) Abs Immat Gran (auto) Imm/Tot Granulo (auto) INR VBG pH VBG pCO2 VBG pO2 VBG HCO3 Sodium Potassium Chloride Carbon Dioxide Anion Gap BUN Creatinine Estimated Creat Clear Estimated GFR Glucose Lactate Calcium Ionized Calcium Sharyn Phosphorus Magnesium Iron TIBC % Saturation Total Bilirubin Direct Bilirubin AST ALT Alkaline Phosphatase Total Creatine Kinase Troponin I C-Reactive Protein NT-Pro-B Natriuret Pep Total Protein Albumin Lipase TSH Urine Color Urine Appearance Urine pH Ur Specific [place] Urine Protein Urine Glucose (UA) Urine Ketones Urine Blood Urine Nitrite Urine Bilirubin Urine Urobilinogen Ur Leukocyte Esterase Urine RBC Urine WBC Ur Squamous Epith Cells Urine Bacteria Urine Opiates Screen Cancelled Ur Buprenorphine Scrn Cancelled Ur Oxycodone Screen Cancelled Urine Methadone Screen Cancelled Ur Propoxyphene Screen Cancelled Ur Barbiturates Screen Cancelled U Tricyclic Antidepress Cancelled Ur Phencyclidine Scrn Cancelled Ur Amphetamines Screen Cancelled U Methamphetamines Scrn Cancelled U Benzodiazepines Scrn Cancelled Urine Cocaine Screen Cancelled U Marijuana (THC) Screen Cancelled Ur Drug Screen Comment Cancelled SARS-CoV-2 (PCR) Influenza Type A (PCR) Influenza Type B (PCR) RSV (PCR) Lab Acknowledgement POC Creatinine POC Troponin I
[2023-10-28 09:53] LABS: Vitamin B12* 986 pg/mL (243-894)
[2023-10-28 09:56] LABS: Troponin I* 1.09 ng/mL (0.01-0.04)
[2023-10-28 10:33] LABS: Gamma Glutamyl Transpeptidase* 287 U/L (8-55)
[2023-10-28 10:35] LABS: Creatine Kinase* 1035 U/L (41-117)
[2023-10-28] MEDS: cefTRIAXone 1 GM in 0.9 % SODIUM CHLORIDE Mini-bag 100 ML IVPB (11:23)
[2023-10-28] MEDS: POTASSIUM CHLORIDE 10 MEQ CAPSULE ER 20 MEQ PO ×2 (11:24→14:21)
[2023-10-28] MEDS: CALCIUM CARBONATE 500 MG CHEW 1000 MG PO ×2 (11:24→14:22)
[2023-10-28] MEDS: 0.9 % SODIUM CHLORIDE 1000 ml 1,000 ML 125 ML IV ×2 (11:25→20:04)
[2023-10-28 12:39] LABS: CDIFFEPI 027 PRESUMPTIVE NEGATIVE (Negative)
[2023-10-28 12:49] LABS: C.Difficile POSITIVE (Negative)
[2023-10-28] MEDS: metroNIDAZOLE 500 MG TABLET PO ×2 (14:21→21:13)
[2023-10-28] MEDS: VANCOMYCIN 125 MG CAPSULE PO ×3 (14:21→21:12)
[2023-10-28] MEDS: LORazepam 2 MG/ML inj IVP ×3 (16:33→22:44)
[2023-10-28] MEDS: ROSUVASTATIN CALCIUM 10 MG TABLET 20 MG PO (17:42)
[2023-10-28 17:59] LABS: Potassium* 2.5 mmol/L (3.6-5.1)
[2023-10-28 18:09] LABS: Troponin I* 0.89 ng/mL (0.01-0.04)
--- NOTE | 2023-10-28 18:21 | PC.NURSE ---
End of Shift: Alert and Orientated, although wax and waning. Tested positive for CDIFF this afternoon. Reported moderate to severe back pain throughout the day @ 8-4/10 with administration of PRN oxycodone. Nicotine patch was applied this AM to L outter arm. Bilateral periorbital bruising from fall with open to air laceration on L upper eye brow. IV thiamine given throughout the day. IV ABX and PO ABX were started today as well. CIWAs remain in place. The patient was scoring lower this AM... this afternoon scoring higher between 9-11. CIWAS q1 hr until <9. IV Ativan given 2x per protocol. Patient refused lunch and dinner although offered multiple times. Ensure shake is on her tray table. She is continent of bladder and had one episode of incontinent stool this afternoon. Up to the commode with GB and RW Ax2 due to tremor at times. Coccyx wound mepilex was changed and labeled. Outer edges are blanchable although middle of the wound is not.. scant amount of serous drainage. Update was given to her son this afternoon... him and his also came to visit this evening. Noticed the patient was hallucinating and they notified me. He would like his mom to have a life alert button.. the handout information is in the chart.. I left him a voicemail regarding the information and told him to ask for it when he visits next. Call light within reach.. bed alarm on. JANNETH ROSA BSN
[2023-10-28] MEDS: POTASSIUM BICARB 25 MEQ EFFERVESCENT TAB PO ×2 (20:04→23:18)
[2023-10-28] MEDS: ENOXAPARIN 40 MG/0.4 ML INJ 30 MG SUBCUT (21:13)
[2023-10-28 23:32] LABS: Potassium* 2.6 mmol/L (3.6-5.1)
[2023-10-28 23:59] LABS: Troponin I* 0.75 ng/mL (0.01-0.04)
[2023-10-29] VITALS (11 sets, daily range): BP systolic 104–165; BP diastolic 76–118; PULSE 78–134; RESP 18–22; TEMP 36.6–37.5; O2SAT 92–100
[2023-10-29] MEDS: POTASSIUM CHLORIDE 10 MEQ CAPSULE ER 40 MEQ PO ×3 (00:08→21:03)
[2023-10-29] MEDS: POTASSIUM CHLORIDE 10 MEQ/100 ML PIGGYBACK 100 MEQ IVPB (05:55)
[2023-10-29] MEDS: 0.9 % SODIUM CHLORIDE 1000 ml 1,000 ML 125 ML IV (05:55)
[2023-10-29 06:45] LABS: Ionized Calcium* 0.98 mmol/L (1.11-1.30); Lactate* 1.3 mmol/L (0.5-1.9)
[2023-10-29 06:47] LABS: Basophils Absolute Auto 0.02 K/uL (0.00-0.30); Basophils Percent Auto 0.4 % (0.0-3.0); Hematocrit 29.1 % (33.0-51.0); Hemoglobin* 9.5 gm/dL (12.0-16.0); Immature Granulocytes Abs Auto 0.02 K/uL (0.00-0.30); Immature Granulocytes Pct Auto 0.4 %; Lymphocytes Percent Auto 15.9 % (20-44); Mean Corpuscular HGB Conc 33 gm/dL (32-36); Mean Corpuscular Hemoglobin 35 pg (26-34); Mean Corpuscular Volume 107 fL (80-100); Monocytes Percent Auto 10.4 % (0.0-11.0); Neutrophils Percent Auto 72.9 % (42.0-72.0); Platelet Count* 201 K/uL (140-440); RDW Coefficient of Variation % 14.5 % (11.5-15.5); Red Blood Count 2.71 m/uL (4.00-5.20); White Blood Count* 5.41 K/uL (4.50-11.00)
[2023-10-29 07:05] LABS: Chloride* 107 mmol/L (96-114)
[2023-10-29 07:06] LABS: Albumin* 3.5 g/dL (3.3-5.0); Slide Review Reflex No; Sodium* 145 mmol/L (135-149)
[2023-10-29 07:08] LABS: Anion Gap 13 mEq/L (7-15); Bilirubin Total* 1.1 mg/dL (0.1-1.5); Carbon Dioxide* 25 mmol/L (20-32); Creatinine* 0.4 mg/dL (0.5-1.5); Estimated Glomerular Filt Rate 112 ml/min
[2023-10-29 07:09] LABS: Alanine Aminotransferase* 65 U/L (4-35); Alkaline Phosphatase* 83 U/L (40-150); Aspartate Amino Transferase* 98 U/L (12-35); Blood Urea Nitrogen* 11 mg/dL (7-30); Calcium* 7.6 mg/dL (8.4-10.6); Creatine Kinase* 975 U/L (41-117); Glucose* 88 mg/dL (60-115); Total Protein* 6.2 g/dL (6.0-8.3)
[2023-10-29 07:10] LABS: Magnesium* 1.6 mg/dL (1.5-2.6)
[2023-10-29 07:26] LABS: Procalcitonin* 0.15 ng/mL (<0.50)
[2023-10-29 07:34] LABS: Potassium* 2.8 mmol/L (3.6-5.1)
--- NOTE | 2023-10-29 09:06 | P.IMPN_ITS ---
Progress Note: A&P Assessment and plan (1) Alcohol withdrawal: Problem details: 10/28: addendum; spoke with son he states mother drinks Rum and Coke daily and is not honest about her drinking; will continue CIWA protocol ; continue MV and thiamine supplementation Status: Acute (2) History of alcohol abuse: Problem details: states last drink over one month ago; elevated LFTs, will trend; check RUQ US abdom in AM abdomen soft, nt, nd, Status: Acute (3) Diarrhea: Problem details: found to be positive for c diff; oral vanco started on 10/29 Status: Acute (4) Rhabdomyolysis: Problem details: CK stabilized; continue IVF Status: Acute (5) Hypomagnesemia: Problem details: continue electrolyte replacement Status: Acute (6) Acute hypokalemia: Problem details: continue electrolyte replacement Status: Acute (7) Elevated troponin: Problem details: likely supply/demand ischemia; type II NSTEMI for electrolyte abnormalities, active infection; rhabdo; repeat trops have peaked and trending down; Echo completed with normal EF Status: Acute (8) Syncope: Problem details: Presented with fall in bathroom; possible syncope vs presyncope; +generalized weakness Status: Acute (9) Aspiration pneumonitis: Problem details: pneumonitis vs aspiration pneumonia; started on antibiotics on 10/28; allergies noted; ceftriaxone +doxycyline Status: Acute (10) Generalized weakness: Problem details: PT, OT, SW consults; multifactorial; anticipate need for SNF at discharge; anticipated discharge TBD likely end of this week; not medically stable for discharge; attempted to call laly bonds today 10/29 for update but he did not answer Status: Acute Subjective Date Seen: 10/29/23 Interval history: patient did not sleep well last night continues to have diarrhea this morning started on PO vanco for c diff continues to have multiple electrolyte abnormalities attempt to call laly bonds did not answer Exam Narrative: Exam Narrative: Gen: no acute distress HEENT: NCAT EOMI mmm Neck: Supple CV: RRR normal s1 s2 Lungs: CTAB Abd: Soft,nt, nd Neuro: Alert, oriented, CN grossly intact; nonfocal screening?exam Psych: appropriate affect MSK: age appropriate muscle mass Skin; Warm, dry no rash on face Const: Vital Signs, click to edit/add: Vital Signs - 24 hr 10/28/23 11:00 10/28/23 12:00 10/28/23 14:51 Temperature 97.8 F 98.2 F Pulse Rate Pulse Rate [Left R adial] 76 75 85 Respiratory Rate 18 16 18 Blood Pressure [Le ft Arm] 114/86 101/63 Pulse Oximetry 96 95 93 Oxygen Delivery Me thod Room Air Room Air Room Air Oxygen Flow Rate 10/28/23 15:00 10/28/23 15:01 10/28/23 19:30 Temperature 97.5 F L 98.7 F Pulse Rate 77 Pulse Rate [Left R adial] 85 75 Respiratory Rate 18 20 Blood Pressure [Le ft Arm] 101/63 119/81 Pulse Oximetry 95 94 Oxygen Delivery Me thod Room Air Room Air Oxygen Flow Rate 10/28/23 19:30 10/28/23 21:00 10/28/23 22:00 Temperature 98.7 F 97.7 F 98.5 F Pulse Rate Pulse Rate [Left R adial] 75 95 84 Respiratory Rate 16 20 20 Blood Pressure [Le ft Arm] 119/81 134/97 H 123/86 Pulse Oximetry 94 93 93 Oxygen Delivery Me thod Room Air Room Air Room Air Oxygen Flow Rate 10/28/23 23:00 10/28/23 23:00 10/28/23 23:00 Temperature 98.7 F Pulse Rate 80 Pulse Rate [Left R adial] 80 80 Respiratory Rate 20 20 Blood Pressure [Le ft Arm] 111/77 Pulse Oximetry 91 Oxygen Delivery Me thod Room Air Oxygen Flow Rate 10/29/23 00:00 10/29/23 01:00 10/29/23 04:15 Temperature 97.8 F 98.6 F 98.2 F Pulse Rate Pulse Rate [Left R adial] 86 87 85 Respiratory Rate 18 20 22 Blood Pressure [Le ft Arm] 127/85 104/76 132/95 H Pulse Oximetry 92 94 92 Oxygen Delivery Me thod Room Air Room Air Room Air Oxygen Flow Rate 10/29/23 07:00 10/29/23 08:00 Temperature 99.1 F 99.1 F Pulse Rate Pulse Rate [Left R adial] 92 92 Respiratory Rate 20 20 Blood Pressure [Le ft Arm] 159/118 H 159/118 H Pulse Oximetry 94 94 Oxygen Delivery Me thod Room Air Room Air Oxygen Flow Rate 2 Labs Labs: Laboratory Results - last 24 hr 10/27/23 10/28/2310/28/23 Unknown 08:25 11:44 WBC RBC Hgb Hct MCV MCH MCHC RDW Coeff of Katina Plt Count Neut % (Auto) Lymph % (Auto) [place] % (Auto) Eos % (Auto) Baso % (Auto) Neut # (Auto) Lymph # (Auto) [place] # (Auto) Eos # (Auto) Baso # (Auto) Abs Immat Gran (auto) Imm/Tot Granulo (auto) INR 1.00 Sodium 138 Potassium 2.1 L* Chloride 95 L Carbon Dioxide 21 Anion Gap 22 H BUN 9 Creatinine 0.5 Estimated Creat Clear 49.70 Estimated GFR 106 Glucose 104 Lactate Calcium 8.0 L Ionized Calcium Sharyn Phosphorus 3.2 Magnesium 2.0 Iron 49 TIBC 250 L % Saturation 20 Total Bilirubin 2.6 H Direct Bilirubin 0.7 H GGT 287 H AST 124 H ALT 85 H Alkaline Phosphatase 109 Total Creatine Kinase 1035 H Troponin I 1.09 H* C-Reactive Protein 3.5 H NT-Pro-B Natriuret Pep 40911 Total Protein 7.7 Albumin 4.6 Lipase 2029 H Vitamin B12 986 H Procalcitonin TSH 0.247 L Stl C. diff Tox B Gene POSITIVE A* Stl C. diff 027-NAP1-BI PRESUMPTIVE NEGATIVE Urine Opiates Screen Negative Ur Buprenorphine Scrn Ur Oxycodone Screen Negative Urine Methadone Screen Negative Ur Propoxyphene Screen Negative Ur Barbiturates Screen Negative U Tricyclic Antidepress Negative Ur Phencyclidine Scrn Negative Ur Amphetamines Screen Negative U Methamphetamines Scrn Negative U Benzodiazepines Scrn Negative Urine Cocaine Screen Negative U Marijuana (THC) Screen Negative Ur Drug Screen Comment See Note Lab Acknowledgement 10/28/23 10/28/23 10/28/23 12:41 12:41 17:26 WBC RBC Hgb Hct MCV MCH MCHC RDW Coeff of Katina Plt Count Neut % (Auto) Lymph % (Auto) [place] % (Auto) Eos % (Auto) Baso % (Auto) Neut # (Auto) Lymph # (Auto) [place] # (Auto) Eos # (Auto) Baso # (Auto) Abs Immat Gran (auto) Imm/Tot Granulo (auto) INR Sodium Potassium 2.5 L* Chloride Carbon Dioxide Anion Gap BUN Creatinine Estimated Creat Clear Estimated GFR Glucose Lactate Calcium Ionized Calcium Sharyn Phosphorus Magnesium Iron TIBC % Saturation Total Bilirubin Direct Bilirubin GGT AST ALT Alkaline Phosphatase Total Creatine Kinase Troponin I 0.89 H* C-Reactive Protein NT-Pro-B Natriuret Pep Total Protein Albumin Lipase Vitamin B12 Procalcitonin TSH Stl C. diff Tox B Gene Stl C. diff 027-NAP1-BI Urine Opiates Screen Ur Buprenorphine Scrn Ur Oxycodone Screen Urine Methadone Screen Ur Propoxyphene Screen Ur Barbiturates Screen U Tricyclic Antidepress Ur Phencyclidine Scrn Ur Amphetamines Screen U Methamphetamines Scrn U Benzodiazepines Scrn Urine Cocaine Screen U Marijuana (THC) Screen Ur Drug Screen Comment Lab Acknowledgement Test Added Cancelled 10/28/23 10/28/23 10/29/23 22:00 Unknown 06:07 WBC 5.41 RBC 2.71 L Hgb 9.5 L Hct 29.1 L MCV 107 H MCH 35 H MCHC 33 RDW Coeff of Katina 14.5 Plt Count 201 Neut % (Auto) 72.9 H Lymph % (Auto) 15.9 L [place] % (Auto) 10.4 Eos % (Auto) 0.0 Baso % (Auto) 0.4 Neut # (Auto) 3.90 Lymph # (Auto) 0.90 [place] # (Auto) 0.60 Eos # (Auto) 0.00 Baso # (Auto) 0.02 Abs Immat Gran (auto) 0.02 Imm/Tot Granulo (auto) 0.4 INR Sodium 145 Potassium 2.6 L* 2.8 L* Chloride 107 Carbon Dioxide 25 Anion Gap 13 BUN 11 Creatinine 0.4 L Estimated Creat Clear 49.70 Estimated GFR 112 Glucose 88 Lactate 1.3 Calcium 7.6 L Ionized Calcium Sharyn 0.98 L Phosphorus 2.0 L Magnesium 1.6 Iron TIBC % Saturation Total Bilirubin 1.1 Direct Bilirubin GGT AST 98 H ALT 65 H Alkaline Phosphatase 83 Total Creatine Kinase 975 H Troponin I 0.75 H* C-Reactive Protein NT-Pro-B Natriuret Pep Total Protein 6.2 Albumin 3.5 Lipase Vitamin B12 Procalcitonin 0.15 TSH Stl C. diff Tox B Gene Stl C. diff 027-NAP1-BI Urine Opiates Screen Cancelled Ur Buprenorphine Scrn Cancelled Ur Oxycodone Screen Cancelled Urine Methadone Screen Cancelled Ur Propoxyphene Screen Cancelled Ur Barbiturates Screen Cancelled U Tricyclic Antidepress Cancelled Ur Phencyclidine Scrn Cancelled Ur Amphetamines Screen Cancelled U Methamphetamines Scrn Cancelled U Benzodiazepines Scrn Cancelled Urine Cocaine Screen Cancelled U Marijuana (THC) Screen Cancelled Ur Drug Screen Comment Cancelled Lab Acknowledgement
--- NOTE | 2023-10-29 09:13 | PC.NURSE ---
Pt oriented x3. Pt can answer where she is, the date, and who is president but pt will makes statements such as I need to go shut the oven off, I need to get up and go shopping. Pt got Ativan around 2230 once per CIWA protocol scoring 9. Pt CIWA scores since then have been 5-2. Pt is up A2 with gait belt and pivot to commode. RN attempted to reposition throughout night but when RN would come in to reposition again pt would be in a new position off the pillows. RN gave education on repositioning and bed sores, pt acknowledged stating she understood but RN continued to find pt in new positions. Pt has difficulties following commands such as moving foot forward to walk or suck on a straw to drink medication. Pt goes in and out of sleep but even when awake she is drowsy. Falling asleep after taking sip of water with cup in hand. Pt set off bed alarm once, attempting to go to bathroom, educated on importance of call light use and fall risks. Pt soaked 3 briefs, a mixture of both urine and loose stool. Pt slept throughout most of night.
--- NOTE | 2023-10-29 10:15 | CRLHL7_ITS ---
For Patients: As a result of the Century Cures Act, medical imaging exams and procedure reports are released immediately into your electronic medical record. You may view this report before your referring provider. If you have questions, please contact your health care provider. INDICATION: Abnormal LFTs COMPARISON: 12/20/2022 TECHNIQUE: Real time sen scale imaging and color Doppler analysis was performed of the right upper quadrant. FINDINGS: The liver echotexture is diffusely increased. Aorta is ectatic measuring up to 2.9 cm. No intrahepatic mass. The liver measures 20.1 cm. Main portal vein measures 1 cm. There is no evidence of ascites. Echogenic foci are present within the gallbladder lumen. The gallbladder wall measures 1 mm in thickness. The common bile duct is of normal size and measures 4 mm in diameter at the level of the edie hepatis. The pancreas appears normal. There is no evidence of a stone or hydronephrosis within the right kidney. The right kidney measures 12.1 cm in length. IMPRESSION: Severe hepatic steatosis. Hepatomegaly. No ascites. Cholelithiasis. Dictated by Rambo Ravi MD @ 10/29/2023 1:34:54 PM (Electronically Signed)
[2023-10-29] MEDS: MAGNESIUM OXIDE 400 MG TABLET 800 MG PO ×2 (11:09→21:03)
[2023-10-29] MEDS: METOPROLOL TARTRATE 25 MG TABLET 50 MG PO (11:09)
[2023-10-29] MEDS: OMEPRAZOLE 20 MG CAPSULE DR 40 MG PO (11:09)
[2023-10-29] MEDS: THIAMINE 250 MG in 0.9 % SODIUM CHLORIDE 100 ml 100 ML 102.5 MG IVPB ×3 (11:10→22:48)
[2023-10-29] MEDS: VANCOMYCIN 125 MG CAPSULE PO ×4 (11:11→21:02)
[2023-10-29] MEDS: cefTRIAXone 1 GM in 0.9 % SODIUM CHLORIDE Mini-bag 100 ML IVPB (11:12)
[2023-10-29] MEDS: ASPIRIN 81 MG TABLET EC PO (11:15)
[2023-10-29] MEDS: SERTRALINE 50 MG TABLET PO (11:15)
[2023-10-29] MEDS: DOXYCYCLINE HYCLATE 100 MG PO ×2 (11:23→21:02)
[2023-10-29] MEDS: SODIUM CHLORIDE 0.9 % (FLUSH) 10 ML SYRINGE 5 ML IVF ×2 (12:00→21:04)
[2023-10-29] MEDS: POTASSIUM CHLORIDE 10 MEQ CAPSULE ER 20 MEQ PO ×2 (15:54→22:48)
[2023-10-29] MEDS: NICOTINE 14 mg PATCH 1 PATCH TOPICAL (15:55)
[2023-10-29] MEDS: 0.9 % SODIUM CHLORIDE 1000 ml 1,000 ML 100 ML IV (19:48)
[2023-10-29 20:08] LABS: Potassium* 2.7 mmol/L (3.6-5.1)
--- NOTE | 2023-10-29 20:23 | PC.NURSE ---
Nursing Care Hours: 7023-5001 Pt this shift oriented x3, lethargic in morning but became more alert throughout the day. Initially was 2 assist but progressed to 1 assist with walker and gait belt to bathroom. CIWA unimpressive, no action needed. Appetite poor and declined supplements. IV x2 patent. Frequent loose stools. Educated on why Imodium is not recommended with this disease process. Electrolyte replacements started. Critical value reported. Cable Installer Repairer Helper brushed pt hair, helped change gowns. Tele shows NSR with prolong QT.
[2023-10-29] MEDS: ENOXAPARIN 40 MG/0.4 ML INJ 30 MG SUBCUT (21:03)
--- NOTE | 2023-10-29 23:52 | PM.EN ---
Chart Event Note Date Seen: 10/29/23 Chart Event Note: Patient had a transient episode of sinus tachycardia after getting up and going to the bathroom. Rate between 120 and 140. Systolic blood pressures in the 150-160 with this. Episode lasted about 40 minutes. Restarted her beta-ana, metoprolol tartrate, 25 mg p.o. b.i.d.. Continue with treatments of other underlying conditions.
[2023-10-30] VITALS (12 sets, daily range): BP systolic 126–167; BP diastolic 43–117; PULSE 68–124; RESP 16–20; TEMP 36.4–37; O2SAT 94–96
[2023-10-30] MEDS: POTASSIUM BICARB 25 MEQ EFFERVESCENT TAB 50 MEQ PO (02:31)
[2023-10-30] MEDS: METOPROLOL TARTRATE 25 MG TABLET PO ×3 (02:31→12:05)
[2023-10-30 02:34] LABS: Folate, Serum >22.3 ng/mL (>=5.9)
[2023-10-30] MEDS: OXYCODONE 5 MG TABLET PO ×2 (02:43→12:45)
[2023-10-30 06:57] LABS: Ionized Calcium* 0.88 mmol/L (1.11-1.30)
[2023-10-30 07:10] LABS: Basophils Absolute Auto 0.05 K/uL (0.00-0.30); Basophils Percent Auto 1.1 % (0.0-3.0); Eosinophils Absolute Auto 0.02 K/uL (0.00-0.50); Eosinophils Percent Auto 0.4 % (0.0-7.0); Hematocrit 27.8 % (33.0-51.0); Hemoglobin* 9.2 gm/dL (12.0-16.0); Immature Granulocytes Abs Auto 0.02 K/uL (0.00-0.30); Immature Granulocytes Pct Auto 0.4 %; Lymphocytes Percent Auto 28.1 % (20-44); Mean Corpuscular HGB Conc 33 gm/dL (32-36); Mean Corpuscular Hemoglobin 35 pg (26-34); Mean Corpuscular Volume 107 fL (80-100); Monocytes Percent Auto 12.3 % (0.0-11.0); Neutrophils Absolute Auto 2.66 K/uL (1.7-7.0); Neutrophils Percent Auto 57.7 % (42.0-72.0); Platelet Count* 185 K/uL (140-440); RDW Coefficient of Variation % 14.6 % (11.5-15.5); White Blood Count* 4.62 K/uL (4.50-11.00)
[2023-10-30 07:12] LABS: Slide Review Reflex No
[2023-10-30 07:28] LABS: Albumin* 3.5 g/dL (3.3-5.0); Chloride* 106 mmol/L (96-114); Potassium* 3.1 mmol/L (3.6-5.1); Sodium* 141 mmol/L (135-149)
[2023-10-30 07:30] LABS: Creatinine* 0.3 mg/dL (0.5-1.5); Est. Creatinine Clearance* 48.66; Estimated Glomerular Filt Rate 120 ml/min
[2023-10-30 07:31] LABS: Alanine Aminotransferase* 63 U/L (4-35); Alkaline Phosphatase* 82 U/L (40-150); Anion Gap 9 mEq/L (7-15); Aspartate Amino Transferase* 82 U/L (12-35); Bilirubin Total* 1.1 mg/dL (0.1-1.5); Blood Urea Nitrogen* 5 mg/dL (7-30); Carbon Dioxide* 26 mmol/L (20-32); Creatine Kinase* 770 U/L (41-117); Glucose* 90 mg/dL (60-115); Phosphorus* 2.8 mg/dL (2.5-4.5); Total Protein* 6.4 g/dL (6.0-8.3)
[2023-10-30 07:32] LABS: Calcium* 6.9 mg/dL (8.4-10.6)
--- NOTE | 2023-10-30 07:35 | PC.NURSE ---
End of shift report [id number]: Alert and oriented x 3, pleasant and cooperative with cares. Patient reports headache, pain managed with PRN oxycodone. Patient continues to have multiple loose stools, incontinent due to not feeling the need to defecate until she is already going. Ambulates with SBA with walker and gait belt, minimal assistance needed for transfers. At 2300 patient?s heart rate increased to 150?s, BP elevated at 158/117, rechecked on left arm and 163/113, manual BP obtained and 158/114. Dr. Goodwin updated with BP and tachycardia, ECG requested and completed, results given to MD. New orders obtained. Assisted patient to BR at 0600, patient reporting dizziness and lightheadedness, BP recheck 163/[address] Ramírez with elevated BP and variable tachycardia.
[2023-10-30 07:39] LABS: Magnesium* 0.9 mg/dL (1.5-2.6)
[2023-10-30] MEDS: POTASSIUM CHLORIDE 10 MEQ CAPSULE ER 40 MEQ PO ×3 (08:00→18:22)
[2023-10-30] MEDS: METOPROLOL TARTRATE 25 MG TABLET 50 MG PO ×2 (09:29→21:23)
[2023-10-30] MEDS: SERTRALINE 50 MG TABLET PO (09:29)
[2023-10-30] MEDS: THIAMINE 250 MG in 0.9 % SODIUM CHLORIDE 100 ml 100 ML 102.5 MG IVPB ×3 (09:29→21:24)
[2023-10-30] MEDS: DOXYCYCLINE HYCLATE 100 MG PO ×2 (09:30→21:24)
[2023-10-30] MEDS: MAGNESIUM OXIDE 400 MG TABLET 800 MG PO ×2 (09:30→21:23)
[2023-10-30] MEDS: OMEPRAZOLE 20 MG CAPSULE DR 40 MG PO (09:30)
[2023-10-30] MEDS: VANCOMYCIN 125 MG CAPSULE PO ×4 (09:30→21:23)
[2023-10-30] MEDS: ASPIRIN 81 MG TABLET EC PO (09:30)
[2023-10-30] MEDS: MAGNESIUM IV 4 GM/100 ML PIGGYBACK IVPB (09:35)
[2023-10-30] MEDS: SODIUM CHLORIDE 0.9 % (FLUSH) 10 ML SYRINGE 5 ML IVF (09:55)
--- NOTE | 2023-10-30 10:59 | P.IMPN_ITS ---
Progress Note: A&P Assessment and plan (1) Alcohol withdrawal: Problem details: 10/28: addendum; spoke with son he states mother drinks Rum and Coke daily and is not honest about her drinking; will continue CIWA protocol ; continue MV and thiamine supplementation Status: Acute (2) Diarrhea: Problem details: found to be positive for c diff; oral vanco started on 10/29 Status: Acute (3) Rhabdomyolysis: Problem details: CK stabilized; stop IVF CK trending down Status: Acute (4) Generalized weakness: Problem details: PT, OT, SW consults; multifactorial; anticipate need for SNF at discharge; anticipated discharge TBD likely end of this week; not medically stable for discharge; attempted to call son ranjit today 10/29 for update but he did not answer 10/30: pt declines SNF; spoke with Ranjit today he is going to talk to mother Status: Acute (5) History of alcohol abuse: Problem details: states last drink over one month ago; elevated LFTs, will trend; check RUQ US abdomen in AM abdomen soft, nt, nd, 10/30: RUQ Abdominal US showed no ascites severe Severe hepatic steatosis. Hepatomegaly. No ascites. Cholelithiasis. Status: Acute (6) Hypomagnesemia: Problem details: continue electrolyte replacement Status: Acute (7) Acute hypokalemia: Problem details: continue electrolyte replacement Status: Acute (8) Elevated troponin: Problem details: likely supply/demand ischemia; type II NSTEMI for electrolyte abnormalities, active infection; rhabdo; repeat trops have peaked and trending down; Echo completed with normal EF Status: Acute (9) Aspiration pneumonitis: Problem details: pneumonitis vs aspiration pneumonia; started on antibiotics on 10/28; allergies noted; ceftriaxone +doxycyline Status: Acute (10) UTI (urinary tract infection): Problem details: UCx growing Klebsiella; continue ceftriaxone Status: Acute Subjective Date Seen: 10/30/23 Interval history: patient with HR in 120-140s last night when getting up to bathroom last night this morning denies chest pain and sob diarrhea continues; but improving she is declining snf denies palpitations tachycardia improving Abdominal US IMPRESSION: Severe hepatic steatosis. Hepatomegaly. No ascites. Cholelithiasis. Exam Narrative: Exam Narrative: Gen: no acute distress HEENT: NCAT EOMI mmm CV: RRR normal s1 s2 Lungs: CTAB Abd: Soft,nt, nd Neuro: Alert, oriented, CN grossly intact; nonfocal screening?exam Psych: appropriate affect MSK: decreased muscle mass Const: Vital Signs, click to edit/add: Vital Signs - 24 hr 10/29/23 11:00 10/29/23 15:00 10/29/23 15:00 Temperature 99.5 F Pulse Rate 78 Pulse Rate [Left P ulse Oximeter] 100 84 Pulse Rate [Left R adial] Respiratory Rate 18 20 Blood Pressure [Le ft Arm] 121/109 H Blood Pressure [Ri ght Arm] 165/112 H Pulse Oximetry 100 96 Oxygen Delivery Me thod Room Air Room Air Oxygen Flow Rate 10/29/23 15:00 10/29/23 16:00 10/29/23 19:00 Temperature 99.5 F 98.6 F Pulse Rate Pulse Rate [Left P ulse Oximeter] 84 84 134 H Pulse Rate [Left R adial] Respiratory Rate 20 20 20 Blood Pressure [Le ft Arm] Blood Pressure [Ri ght Arm] 165/112 H 158/114 H Pulse Oximetry 96 94 Oxygen Delivery Me thod Room Air Room Air Oxygen Flow Rate 10/29/23 20:00 10/29/23 23:00 10/29/23 23:00 Temperature 98.5 F 98.6 F Pulse Rate Pulse Rate [Left P ulse Oximeter] 86 96 124 H Pulse Rate [Left R adial] Respiratory Rate 18 20 20 Blood Pressure [Le ft Arm] 158/117 H Blood Pressure [Ri ght Arm] 162/103 H 158/114 H Pulse Oximetry 94 94 Oxygen Delivery Me thod Room Air Room Air Oxygen Flow Rate 10/29/23 23:00 10/30/23 00:00 10/30/23 03:00 Temperature 98.6 F 97.8 F Pulse Rate 116 H Pulse Rate [Left P ulse Oximeter] 124 H 104 H Pulse Rate [Left R adial] Respiratory Rate 20 20 Blood Pressure [Le ft Arm] 158/117 H Blood Pressure [Ri ght Arm] 158/114 H 167/103 H Pulse Oximetry 94 96 Oxygen Delivery Me thod Room Air Room Air Oxygen Flow Rate 2 10/30/23 04:00 10/30/23 07:00 10/30/23 07:00 Temperature 97.8 F Pulse Rate 91 Pulse Rate [Left P ulse Oximeter] 104 H 92 Pulse Rate [Left R adial] 92 Respiratory Rate 20 20 Blood Pressure [Le ft Arm] Blood Pressure [Ri ght Arm] 167/103 H Pulse Oximetry 96 Oxygen Delivery Me thod Room Air Oxygen Flow Rate 10/30/23 07:00 10/30/23 08:00 Temperature 98.5 F 98.5 F Pulse Rate Pulse Rate [Left P ulse Oximeter] 92 92 Pulse Rate [Left R adial] 92 Respiratory Rate 20 20 Blood Pressure [Le ft Arm] Blood Pressure [Ri ght Arm] 161/43 H 161/43 H Pulse Oximetry 96 96 Oxygen Delivery Me thod Room Air Room Air Oxygen Flow Rate Labs Labs: Laboratory Results - last 24 hr 10/28/23 10/29/23 10/30/23 08:25 19:13 06:36 WBC 4.62 RBC 2.60 L Hgb 9.2 L Hct 27.8 L MCV 107 H MCH 35 H MCHC 33 RDW Coeff of Katina 14.6 Plt Count 185 Neut % (Auto) 57.7 Lymph % (Auto) 28.1 [place] % (Auto) 12.3 H Eos % (Auto) 0.4 Baso % (Auto) 1.1 Neut # (Auto) 2.66 Lymph # (Auto) 1.30 [place] # (Auto) 0.60 Eos # (Auto) 0.02 Baso # (Auto) 0.05 Abs Immat Gran (auto) 0.02 Imm/Tot Granulo (auto) 0.4 Sodium 141 Potassium 2.7 L* 3.1 L Chloride 106 Carbon Dioxide 26 Anion Gap 9 BUN 5 L Creatinine 0.3 L Estimated Creat Clear 48.66 Estimated GFR 120 Glucose 90 Calcium 6.9 L Ionized Calcium Sharyn 0.88 L Phosphorus 2.8 Magnesium 0.9 L* Total Bilirubin 1.1 AST 82 H ALT 63 H Alkaline Phosphatase 82 Total Creatine Kinase 770 H Total Protein 6.4 Albumin 3.5 RBC Fol Meghan for Serum >22.3
--- NOTE | 2023-10-30 11:02 | PC.SOCIAL ---
Addendum entered by BRANDY Montes 10/30/23 16:31: Discharge planning: Hospitalist spoke with pt's son about pt's wishes at discharge and the son then asked to speak to this medical social worker. boat worker spoke to pt's son and the son expressed concerns about his mother going back home after discharge due to her living conditions and physical health/strength. boat worker encouraged son to call and file a Vulnerable Adult report with the first hand information that he had. boat worker also filed a Vulnerable Adult report with [facility] for pt, report #[id number]. boat worker stopped back at pt's room this afternoon to go over a list of Home Care agencies. Pt was sleepy and asked this worker to come back tomorrow. boat worker will stop back tomorrow to see pt. Social work to follow-up as needed. Original Note: Discharge planning: Met with pt today to discuss discharge planning. Explained to pt that PT/OT and Hospitalist are recommending a SNF at discharge. Pt said no and that she did not want to go to a SNF and wanted to go home. boat worker asked her if she would be open to Home Care services. Pt said that would be fine. boat worker consulted with Hospitalist and explained pt's wishes. Hospitalist will call to update the son on pt's wishes. Hospitalist explained that discharge would most likely be this Saturday. Social work to follow-up as needed.
[2023-10-30] MEDS: cefTRIAXone 1 GM in 0.9 % SODIUM CHLORIDE Mini-bag 100 ML IVPB (12:05)
[2023-10-30] MEDS: CALCIUM GLUC 1,000MG/50 ML 1,000 MG/50 ML BAG 100 MG IVPB (12:47)
[2023-10-30] MEDS: 0.9 % SODIUM CHLORIDE 1000 ml 1,000 ML 125 ML IV (15:04)
[2023-10-30] MEDS: NICOTINE 14 mg PATCH 1 PATCH TOPICAL (16:31)
--- NOTE | 2023-10-30 18:41 | PC.NURSE ---
End of shift: Patient is flat, and withdrawn, oriented x 3, cooperative with cares. Patient c/o headache, PRN oxycodone administered w/minimal relief. Patient continues to have multiple loose stools throughout shift, Ambulates with SBA with walker and gait belt to BR. BP elevated MD aware and metoprolol ordered. IV in (R) hand, SL when not in use. Mepilex to coccyx intact. Gerald patch replaced at 1630 to left shoulder, old one discarded in med room. patient on CIWA protocol and scored 5/6. No Ativan needed. Patient on Tele, NSR w/BBB. Patient did not have much of an appetite today, c/o tummy feeling upset. Boring And Filling Machine Operator Encouraged patient to drink gayle laura and have crackers.
[2023-10-30] MEDS: ENOXAPARIN 40 MG/0.4 ML INJ 30 MG SUBCUT (21:24)
[2023-10-30] MEDS: CALCIUM CARBONATE 500 MG CHEW PO (21:24)
[2023-10-31] VITALS (14 sets, daily range): BP systolic 126–160; BP diastolic 90–117; PULSE 66–92; RESP 16; TEMP 36.4–37.1; O2SAT 93–96
[2023-10-31] MEDS: METOPROLOL TARTRATE 1 MG/ML inj 5 MG IVP (03:37)
[2023-10-31] MEDS: OXYCODONE 5 MG TABLET PO ×2 (03:37→19:33)
[2023-10-31] MEDS: SODIUM CHLORIDE 0.9 % (FLUSH) 10 ML SYRINGE 5 ML IVF ×3 (03:39→20:58)
--- NOTE | 2023-10-31 05:10 | PC.NURSE ---
Shift note: Pt is alert and oriented, ambulate with A1, walker and GB. No hallucination, tremors and sweating noted. Pt complained of headache of 8 and Oxycodone 5mg given. Bp at 0300 was 160/126. Metoprolol 5mg given and rechecked at 0400 was 153/106. Pt had adequate sleep.
[2023-10-31 05:17] LABS: Vitamin B1, Whole Blood 159 nmol/L (70-180)
[2023-10-31 06:50] LABS: Ionized Calcium* 1.01 mmol/L (1.11-1.30)
[2023-10-31 06:59] LABS: Eosinophils Percent Auto 1.4 % (0.0-7.0); Hematocrit 29.3 % (33.0-51.0); Hemoglobin* 9.6 gm/dL (12.0-16.0); Immature Granulocytes Pct Auto 0.5 %; Lymphocytes Percent Auto 24.2 % (20-44); Mean Corpuscular HGB Conc 33 gm/dL (32-36); Mean Corpuscular Hemoglobin 36 pg (26-34); Mean Corpuscular Volume 109 fL (80-100); Monocytes Percent Auto 10.6 % (0.0-11.0); Neutrophils Percent Auto 62.3 % (42.0-72.0); Platelet Count* 183 K/uL (140-440); RDW Coefficient of Variation % 14.7 % (11.5-15.5); White Blood Count* 4.14 K/uL (4.50-11.00)
[2023-10-31 07:01] LABS: Slide Review Reflex No
[2023-10-31 07:20] LABS: Chloride* 105 mmol/L (96-114); Sodium* 139 mmol/L (135-149)
[2023-10-31 07:22] LABS: Creatinine* 0.3 mg/dL (0.5-1.5); Est. Creatinine Clearance* 50.31; Estimated Glomerular Filt Rate 120 ml/min
[2023-10-31 07:23] LABS: Anion Gap 4 mEq/L (7-15); Blood Urea Nitrogen* 5 mg/dL (7-30); Carbon Dioxide* 30 mmol/L (20-32); Glucose* 106 mg/dL (60-115); Phosphorus* 3.5 mg/dL (2.5-4.5)
[2023-10-31 07:24] LABS: Calcium* 7.7 mg/dL (8.4-10.6); Magnesium* 1.4 mg/dL (1.5-2.6)
[2023-10-31 07:27] LABS: Potassium* 2.8 mmol/L (3.6-5.1)
[2023-10-31] MEDS: SERTRALINE 50 MG TABLET PO (09:41)
[2023-10-31] MEDS: METOPROLOL TARTRATE 25 MG TABLET 50 MG PO ×2 (09:42→20:56)
[2023-10-31] MEDS: OMEPRAZOLE 20 MG CAPSULE DR 40 MG PO (09:42)
[2023-10-31] MEDS: VANCOMYCIN 125 MG CAPSULE PO ×4 (09:43→20:56)
[2023-10-31] MEDS: POTASSIUM CHLORIDE 10 MEQ CAPSULE ER 20 MEQ PO (09:43)
[2023-10-31] MEDS: MAGNESIUM OXIDE 400 MG TABLET 800 MG PO ×2 (09:43→20:56)
[2023-10-31] MEDS: ASPIRIN 81 MG TABLET EC PO (09:45)
[2023-10-31] MEDS: MAGNESIUM IV 4 GM/100 ML PIGGYBACK IVPB (10:03)
--- NOTE | 2023-10-31 11:04 | PM.IMPN1 ---
Progress Note: A&P Assessment and plan (1) UTI (urinary tract infection): Problem details: UCx growing Klebsiella; continue ceftriaxone Status: Acute (2) Alcohol withdrawal: Problem details: 10/28: addendum; spoke with son he states mother drinks Rum and Coke daily and is not honest about her drinking; will continue CIWA protocol ; continue MV and thiamine supplementation Status: Acute (3) Diarrhea: Problem details: found to be positive for c diff; oral vanco started on 10/29 Status: Acute (4) Rhabdomyolysis: Problem details: CK stabilized; stop IVF CK trending down Status: Acute (5) Generalized weakness: Problem details: PT, OT, SW consults; multifactorial; anticipate need for SNF at discharge; anticipated discharge TBD likely end of this week; not medically stable for discharge; attempted to call son vamshi today 10/29 for update but he did not answer 10/30: pt declines SNF; spoke with Vamshi today he is going to talk to mother 10/31: declines SNF and HHC Status: Acute (6) History of alcohol abuse: Problem details: states last drink over one month ago; elevated LFTs, will trend; check RUQ US abdomen in AM abdomen soft, nt, nd, 10/30: RUQ Abdominal US showed no ascites severe Severe hepatic steatosis. Hepatomegaly. No ascites. Cholelithiasis. Status: Acute (7) Hypomagnesemia: Problem details: continue electrolyte replacement Status: Acute (8) Acute hypokalemia: Problem details: continue electrolyte replacement Status: Acute (9) Elevated troponin: Problem details: likely supply/demand ischemia; type II NSTEMI for electrolyte abnormalities, active infection; rhabdo; repeat trops have peaked and trending down; Echo completed with normal EF Status: Acute (10) Aspiration pneumonitis: Problem details: pneumonitis vs aspiration pneumonia; started on antibiotics on 10/28; allergies noted; ceftriaxone +doxycyline; 10/30 doxycyline stopped Status: Acute Plan Discharge to home in 1-2 days; main barriers currently are electrolyte abnormalities Subjective Date Seen: 10/31/23 Interval history: patient continues to have multiple electrolyte abnormalities She states she had a lot of liquid diarrhea yesterday but none today denies chest pain cough improved patient states she does not want SNF nor does she want HHC Exam Narrative: Exam Narrative: Gen: no acute distress HEENT: NCAT EOMI mmm CV: RRR normal s1 s2 Lungs: CTAB Abd: Soft,nt, nd Neuro: Alert, oriented, CN grossly intact; nonfocal screening?exam Psych: flat affect MSK: decreased muscle mass Const: Vital Signs, click to edit/add: Vital Signs - 24 hr 10/30/23 12:00 10/30/23 15:00 10/30/23 15:00 Temperature 97.9 F Pulse Rate 68 Pulse Rate [Left P ulse Oximeter] 98 69 Pulse Rate [Left R adial] 92 Respiratory Rate 16 16 Blood Pressure [Le ft Arm] Blood Pressure [Ri ght Arm] 139/94 H Pulse Oximetry 96 Oxygen Delivery Me thod Room Air Oxygen Flow Rate 10/30/23 15:00 10/30/23 16:00 10/30/23 19:00 Temperature 97.6 F 97.6 F 97.9 F Pulse Rate Pulse Rate [Left P ulse Oximeter] 69 69 73 Pulse Rate [Left R adial] Respiratory Rate 16 16 16 Blood Pressure [Le ft Arm] Blood Pressure [Ri ght Arm] 147/98 H 147/98 H 149/99 H Pulse Oximetry 96 96 96 Oxygen Delivery Me thod Room Air Room Air Room Air Oxygen Flow Rate 10/30/23 20:00 10/30/23 23:00 10/30/23 23:00 Temperature 97.9 F 97.6 F Pulse Rate Pulse Rate [Left P ulse Oximeter] 73 71 Pulse Rate [Left R adial] 92 Respiratory Rate 16 16 16 Blood Pressure [Le ft Arm] 158/117 H Blood Pressure [Ri ght Arm] 149/99 H 126/100 H Pulse Oximetry 96 96 Oxygen Delivery Me thod Room Air Room Air Oxygen Flow Rate 2 10/31/23 00:00 10/31/23 00:10 10/31/23 03:00 Temperature 97.6 F 97.7 F Pulse Rate 66 Pulse Rate [Left P ulse Oximeter] 71 72 Pulse Rate [Left R adial] 92 92 Respiratory Rate 16 16 Blood Pressure [Le ft Arm] 158/117 H Blood Pressure [Ri ght Arm] 126/100 H 160/113 H Pulse Oximetry 96 94 Oxygen Delivery Me thod Room Air Room Air Oxygen Flow Rate 10/31/23 03:29 10/31/23 08:00 10/31/23 08:00 Temperature 97.7 F 97.5 F L Pulse Rate 67 Pulse Rate [Left P ulse Oximeter] 72 75 Pulse Rate [Left R adial] 75 Respiratory Rate 16 16 Blood Pressure [Le ft Arm] Blood Pressure [Ri ght Arm] 160/113 H 146/98 H Pulse Oximetry 94 96 Oxygen Delivery Me thod Room Air Room Air Oxygen Flow Rate 10/31/23 08:03 Temperature Pulse Rate Pulse Rate [Left P ulse Oximeter] 75 Pulse Rate [Left R adial] 75 Respiratory Rate 16 Blood Pressure [Le ft Arm] Blood Pressure [Ri ght Arm] Pulse Oximetry Oxygen Delivery Me thod Oxygen Flow Rate Labs Labs: Laboratory Results - last 24 hr 10/28/23 10/31/23 08:25 06:12 WBC 4.14 L RBC 2.70 L Hgb 9.6 L Hct 29.3 L MCV 109 H MCH 36 H MCHC 33 RDW Coeff of Katina 14.7 Plt Count 183 Neut % (Auto) 62.3 Lymph % (Auto) 24.2 [place] % (Auto) 10.6 Eos % (Auto) 1.4 Baso % (Auto) 1.0 Neut # (Auto) 2.60 Lymph # (Auto) 1.00 [place] # (Auto) 0.40 Eos # (Auto) 0.10 Baso # (Auto) 0.00 Abs Immat Gran (auto) 0.00 Imm/Tot Granulo (auto) 0.5 Sodium 139 Potassium 2.8 L* Chloride 105 Carbon Dioxide 30 Anion Gap 4 L BUN 5 L Creatinine 0.3 L Estimated Creat Clear 50.31 Estimated GFR 120 Glucose 106 Calcium 7.7 L Ionized Calcium Sharyn 1.01 L Phosphorus 3.5 Magnesium 1.4 L Whole Bld Vitamin B1 159
[2023-10-31] MEDS: cefTRIAXone 1 GM in 0.9 % SODIUM CHLORIDE Mini-bag 100 ML IVPB (11:30)
[2023-10-31] MEDS: PHENobarbitaL 130 MG in 0.9 % SODIUM CHLORIDE 100 ml 100 ML 408 MG IVPB (12:25)
[2023-10-31] MEDS: CALCIUM CARBONATE 500 MG CHEW PO ×3 (12:48→20:56)
[2023-10-31] MEDS: POTASSIUM CHLORIDE 10 MEQ CAPSULE ER 40 MEQ PO ×2 (12:48→17:29)
--- NOTE | 2023-10-31 14:47 | PC.NURSE ---
End of shift: pt is pleasant. she does has a flat affect. she had some abd discomfort. she did not want anything for pain. she is up with SBA with walker and gait belt to BR.. IV in (R) hand, and 2nd SL was started. Mepilex to coccyx intact. Nicotine patch to left shoulder. patient on CIWA protocol and scored 2-6/10 she did get IV phenobarbital. No Ativan needed. on Tele, NSR. she is cooperative and listen to the nurse. she has been in the chair and bed.
[2023-10-31] MEDS: MAGNESIUM IV 2 GM/50 ML PIGGYBACK IVPB (14:55)
--- NOTE | 2023-10-31 16:13 | PC.SOCIAL ---
Addendum entered by BRANDY Montes 11/01/23 12:34: Discharge planning: APS worker from [facility], Bambi Koroma, stated that she was familiar with the pt, as she has had open cases for the pt in the past. Bambi asked if the provider would be in support of writing a statement for the pt in regard to CD Commitment or Guardianship due to pt's history of not following through with aftercare services when she discharges from the hospital. abrasive worker relayed this message to Dr. Ramírez and will discuss with Dr. Pappas tomorrow(Saturday). Social work to follow-up as needed. Original Note: Discharge planning: abrasive worker received a message from Bambi Koroma at [facility] in regard to the [facility] that was filed on the pt. abrasive worker attempted to call Bambi back, but had to leave a voicemail. abrasive worker spoke with the son today and explained that this oncology social worker and the Hospitalist will try to connect with Bambi at [facility] again tomorrow. Social work to follow-up as needed.
[2023-10-31] MEDS: NICOTINE 14 mg PATCH 1 PATCH TOPICAL (17:15)
[2023-10-31 18:49] LABS: Potassium* 3.2 mmol/L (3.6-5.1)
[2023-10-31 18:52] LABS: Magnesium* 2.6 mg/dL (1.5-2.6)
[2023-10-31] MEDS: MAGNESIUM OXIDE 400 MG TABLET PO (20:56)
[2023-10-31] MEDS: POTASSIUM CHLORIDE 10 MEQ CAPSULE ER 30 MEQ PO (20:56)
[2023-10-31] MEDS: ENOXAPARIN 40 MG/0.4 ML INJ 30 MG SUBCUT (20:57)
[2023-11-01] VITALS (14 sets, daily range): BP systolic 112–159; BP diastolic 81–111; PULSE 63–75; RESP 16–18; TEMP 36.5–37.1; O2SAT 92–96
--- NOTE | 2023-11-01 05:10 | PC.NURSE ---
Pt A&O, afebrile and VSS overnight with exception to ongoing elevated BP reading in 140s/90s to 150s/100s. Pt had c/o anterior headache behind her eyes at beginning of the shift in which PRN oxycodone x1 dose provided adequate pain relief. Pt ambulates SBA with use of 2ww. Continued to have frequent loose stools overnight d/t C. Diff. CIWA?s remain low: 3 > 0 > 2, only scoring positive on intermittent headaches. Pt reported nausea before bed but ruled it to be from the smell of coffee grounds in her room. No PRN?s needed for CIWA overnight. TELE reading SR w/ BBB. Nicotine patch located on lateral left shoulder. Sacral mepilex in place C/D/I with stage II pressure sore on coccyx. ?
[2023-11-01] MEDS: OXYCODONE 5 MG TABLET PO ×3 (05:30→18:49)
[2023-11-01 07:03] LABS: Ionized Calcium* 1.07 mmol/L (1.11-1.30)
[2023-11-01 07:07] LABS: Hematocrit 28.5 % (33.0-51.0); Hemoglobin* 9.3 gm/dL (12.0-16.0); Mean Corpuscular HGB Conc 33 gm/dL (32-36); Mean Corpuscular Hemoglobin 36 pg (26-34); Mean Corpuscular Volume 109 fL (80-100); Platelet Count* 183 K/uL (140-440); Red Blood Count 2.61 m/uL (4.00-5.20); White Blood Count* 4.16 K/uL (4.50-11.00)
[2023-11-01 07:10] LABS: Slide Review Reflex No
[2023-11-01 07:26] LABS: Chloride* 106 mmol/L (96-114); Potassium* 3.5 mmol/L (3.6-5.1); Sodium* 140 mmol/L (135-149)
[2023-11-01 07:29] LABS: Anion Gap 5 mEq/L (7-15); Blood Urea Nitrogen* 5 mg/dL (7-30); Carbon Dioxide* 29 mmol/L (20-32); Creatinine* 0.4 mg/dL (0.5-1.5); Est. Creatinine Clearance* 49.66; Estimated Glomerular Filt Rate 112 ml/min; Glucose* 89 mg/dL (60-115); Phosphorus* 3.1 mg/dL (2.5-4.5)
[2023-11-01 07:30] LABS: Calcium* 8.1 mg/dL (8.4-10.6); Magnesium* 1.7 mg/dL (1.5-2.6)
[2023-11-01] MEDS: METOPROLOL TARTRATE 25 MG TABLET 50 MG PO ×2 (09:26→21:09)
[2023-11-01] MEDS: ASPIRIN 81 MG TABLET EC PO (09:26)
[2023-11-01] MEDS: OMEPRAZOLE 20 MG CAPSULE DR 40 MG PO (09:26)
[2023-11-01] MEDS: VANCOMYCIN 125 MG CAPSULE PO ×4 (09:27→21:09)
[2023-11-01] MEDS: MAGNESIUM IV 2 GM/50 ML PIGGYBACK IVPB (09:27)
[2023-11-01] MEDS: SODIUM CHLORIDE 0.9 % (FLUSH) 10 ML SYRINGE 5 ML IVF ×2 (09:27→21:08)
[2023-11-01] MEDS: SERTRALINE 50 MG TABLET PO (09:27)
[2023-11-01] MEDS: CALCIUM CARBONATE 500 MG CHEW PO ×4 (09:27→21:09)
[2023-11-01] MEDS: POTASSIUM CHLORIDE 10 MEQ CAPSULE ER 40 MEQ PO ×3 (09:30→18:52)
[2023-11-01] MEDS: MAGNESIUM OXIDE 400 MG TABLET 800 MG PO ×2 (09:48→21:14)
[2023-11-01] MEDS: MAGNESIUM OXIDE 400 MG TABLET PO ×2 (09:49→21:07)
[2023-11-01] MEDS: cefTRIAXone 1 GM in 0.9 % SODIUM CHLORIDE Mini-bag 100 ML IVPB (10:37)
--- NOTE | 2023-11-01 10:38 | PM.IMPN1 ---
Progress Note: A&P Assessment and plan (1) UTI (urinary tract infection): Problem details: UCx growing Klebsiella; continue ceftriaxone Status: Acute (2) Alcohol withdrawal: Problem details: 10/28: addendum; spoke with son he states mother drinks Rum and Coke daily and is not honest about her drinking; will continue CIWA protocol ; continue MV and thiamine supplementation 11/01: Phenobarbital loading dose started on 10/31; additional phenobarbital today 11/01 Status: Acute (3) Diarrhea: Problem details: found to be positive for c diff; oral vanco started on 10/29 Status: Acute (4) Rhabdomyolysis: Problem details: CK stabilized; stop IVF CK trending down Status: Acute (5) Generalized weakness: Problem details: PT, OT, SW consults; multifactorial; anticipate need for SNF at discharge; anticipated discharge TBD likely end of this week; not medically stable for discharge; attempted to call son vamshi today 10/29 for update but he did not answer 10/30: pt declines SNF; spoke with Vamshi today he is going to talk to mother 10/31: declines SNF and HHC Status: Acute (6) History of alcohol abuse: Problem details: states last drink over one month ago; elevated LFTs, will trend; check RUQ US abdomen in AM abdomen soft, nt, nd, 10/30: RUQ Abdominal US showed no ascites severe Severe hepatic steatosis. Hepatomegaly. No ascites. Cholelithiasis. Status: Acute (7) Hypomagnesemia: Problem details: continue electrolyte replacement Status: Acute (8) Acute hypokalemia: Problem details: continue electrolyte replacement Status: Acute (9) Elevated troponin: Problem details: likely supply/demand ischemia; type II NSTEMI for electrolyte abnormalities, active infection; rhabdo; repeat trops have peaked and trending down; Echo completed with normal EF Status: Acute (10) Aspiration pneumonitis: Problem details: pneumonitis vs aspiration pneumonia; started on antibiotics on 10/28; allergies noted; ceftriaxone +doxycyline; 10/30 doxycyline stopped Status: Acute (11) Malnutrition: Status: Acute Plan Anticipated discharge to home tomorrow; pending stable electrolytes (likely will need readjustment of potassium and mg as diarrhea improves), stable withdrawl symptoms, declines SNF and HHC Subjective Date Seen: 11/01/23 Interval history: patient withdrawal symptoms improved after phenobarbital diarrhea 3 episodes today more energy today denies anxiety or hallucinations electrolytes improving as diarrhea resolves Exam Narrative: Exam Narrative: Gen: no acute distress HEENT: NCAT EOMI mmm CV: RRR normal s1 s2 Lungs: CTAB Abd: Soft,nt, nd Neuro: Alert, oriented, +hand tremor Psych:appropriate affect MSK: decreased muscle mass Skin; Warm, dry no rash on face Const: Vital Signs, click to edit/add: Vital Signs - 24 hr 10/31/23 12:27 10/31/23 12:30 10/31/23 17:00 Temperature 98.2 F 98.2 F 97.5 F L Pulse Rate Pulse Rate [Left P ulse Oximeter] 66 66 69 Pulse Rate [Left R adial] 66 66 Respiratory Rate 16 16 16 Blood Pressure [Le ft Arm] 142/99 H Blood Pressure [Ri ght Arm] 132/90 H 132/90 H Pulse Oximetry 94 94 94 Oxygen Delivery Me thod Room Air Room Air Room Air Oxygen Flow Rate 2 2 10/31/23 17:00 10/31/23 18:25 10/31/23 19:00 Temperature 98.8 F Pulse Rate 75 Pulse Rate [Left P ulse Oximeter] 71 Pulse Rate [Left R adial] Respiratory Rate 16 16 Blood Pressure [Le ft Arm] Blood Pressure [Ri ght Arm] 143/96 H Pulse Oximetry 93 Oxygen Delivery Me thod Room Air Oxygen Flow Rate 10/31/23 21:00 10/31/23 22:49 10/31/23 23:00 Temperature 98.8 F 97.7 F Pulse Rate 75 Pulse Rate [Left P ulse Oximeter] 71 68 Pulse Rate [Left R adial] Respiratory Rate 16 16 Blood Pressure [Le ft Arm] Blood Pressure [Ri ght Arm] 143/96 H 141/99 H Pulse Oximetry 93 96 Oxygen Delivery Me thod Room Air Room Air Oxygen Flow Rate 10/31/23 23:00 11/01/23 00:52 11/01/23 03:15 Temperature 97.7 F 98.1 F Pulse Rate Pulse Rate [Left P ulse Oximeter] 68 68 73 Pulse Rate [Left R adial] Respiratory Rate 16 16 16 Blood Pressure [Le ft Arm] Blood Pressure [Ri ght Arm] 141/99 H 156/111 H Pulse Oximetry 96 92 Oxygen Delivery Me thod Room Air Room Air Oxygen Flow Rate 11/01/23 06:50 11/01/23 08:13 11/01/23 08:15 Temperature 97.9 F Pulse Rate 63 Pulse Rate [Left P ulse Oximeter] 75 75 Pulse Rate [Left R adial] Respiratory Rate 16 16 Blood Pressure [Le ft Arm] Blood Pressure [Ri ght Arm] 159/106 H Pulse Oximetry 96 Oxygen Delivery Me thod Room Air Oxygen Flow Rate Labs Labs: Laboratory Results - last 24 hr 10/31/23 11/01/23 18:29 06:02 WBC 4.16 L RBC 2.61 L Hgb 9.3 L Hct 28.5 L MCV 109 H MCH 36 H MCHC 33 Plt Count 183 Sodium 140 Potassium 3.2 L 3.5 L Chloride 106 Carbon Dioxide 29 Anion Gap 5 L BUN 5 L Creatinine 0.4 L Estimated Creat Clear 49.66 Estimated GFR 112 Glucose 89 Calcium 8.1 L Ionized Calcium Sharyn 1.07 L Phosphorus 3.1 Magnesium 2.6 1.7
--- NOTE | 2023-11-01 14:41 | NUTR.NU ---
RD with follow - up regarding underweight pt with poor intake. Pt states she had a bad day yesterday but is feeling better today. Interested in having Ensure afternoon between meals. Pt states she uses Ensure at home. Intervention: Ensure Enlive PM nourishment. Will continue to follow oral intake, weight, labs, poc and need for education.
[2023-11-01] MEDS: LORazepam 2 MG/ML inj IVP (15:06)
--- NOTE | 2023-11-01 15:33 | PC.NURSE ---
End of shift: pt is very pleasant. she does has a flat affect. she is alert x4. she had some abd discomfort. she got po oxycodone and later some Ativan for anxiety. she is up with SBA with walker and gait belt to BR.. IV in (R) hand, and 2nd SL are patent. Mepilex to coccyx intact. Nicotine patch to left shoulder. patient on CIWA protocol and scored 0-2/10. Tele, NSR. she is cooperative and listen to the nurse. she has been in the chair and bed. she had a shower today. she is eating better
--- NOTE | 2023-11-01 16:14 | PC.SOCIAL ---
Discharge planning: Pt was informed by Hospitalist of CD Commitment process starting unless pt agreed to go to a SNF/rehab facility voluntarily. meat process worker met with pt after pt stated she had questions about the CD Commitment process and what her options were. meat process worker met with pt and asked pt if she was willing to voluntarily go to a SNF/rehab facility([place]), pt refused. Pt stated she felt she was being forced to go and that it should be an option for her. Explained to pt if she refuses to go to a SNF/rehab facility, the CD Commitment process will continue and she will most likely stay in the hospital throughout the process. Pt still refused to go voluntarily after addiction social worker explained her options. meat process worker sent hospital documents to Bambi Koroma at [facility] via secure email on pt. per her request, including the statement from the Hospitalist supporting the CD commitment process. Social work to follow-up as needed.
[2023-11-01] MEDS: NICOTINE 14 mg PATCH 1 PATCH TOPICAL (18:47)
[2023-11-01] MEDS: ENOXAPARIN 40 MG/0.4 ML INJ 30 MG SUBCUT (21:08)
[2023-11-01] MEDS: PHENobarbitaL 65 MG/ML inj IVP (21:13)
[2023-11-02] VITALS (9 sets, daily range): BP systolic 126–144; BP diastolic 82–92; PULSE 65–73; RESP 16–18; TEMP 36.1–37.1; O2SAT 93–97
[2023-11-02 06:11] LABS: Ionized Calcium* 1.13 mmol/L (1.11-1.30)
[2023-11-02 06:22] LABS: Hematocrit 26.9 % (33.0-51.0); Hemoglobin* 8.8 gm/dL (12.0-16.0); Mean Corpuscular HGB Conc 33 gm/dL (32-36); Mean Corpuscular Hemoglobin 36 pg (26-34); Mean Corpuscular Volume 111 fL (80-100); Platelet Count* 146 K/uL (140-440); Red Blood Count 2.42 m/uL (4.00-5.20); White Blood Count* 4.47 K/uL (4.50-11.00)
--- NOTE | 2023-11-02 06:32 | PC.NURSE ---
End of shift [id number]: Alert and orientated, pt did report a bout of confusion she had with the nursing assistants. Pt reported she couldn't remember where she was. VSS w/ sats >90% on RA. Denies pain. SBA w/ walker and gait belt. x2 loose stool this shift. Nicotine patch to left shoulder present. Uses call light appropriately. Appeared to rest comfortably throughout the night.
[2023-11-02 06:35] LABS: Chloride* 107 mmol/L (96-114)
[2023-11-02 06:36] LABS: Potassium* 3.9 mmol/L (3.6-5.1); Sodium* 139 mmol/L (135-149)
[2023-11-02 06:38] LABS: Creatinine* 0.4 mg/dL (0.5-1.5); Est. Creatinine Clearance* 49.94; Estimated Glomerular Filt Rate 112 ml/min
[2023-11-02 06:39] LABS: Anion Gap 3 mEq/L (7-15); Blood Urea Nitrogen* 6 mg/dL (7-30); Calcium* 8.3 mg/dL (8.4-10.6); Carbon Dioxide* 29 mmol/L (20-32); Glucose* 88 mg/dL (60-115); Magnesium* 1.5 mg/dL (1.5-2.6); Phosphorus* 3.2 mg/dL (2.5-4.5)
[2023-11-02 06:40] LABS: Slide Review Reflex No
[2023-11-02] MEDS: POTASSIUM CHLORIDE 10 MEQ CAPSULE ER 40 MEQ PO ×3 (10:26→17:57)
[2023-11-02] MEDS: OXYCODONE 5 MG TABLET PO ×2 (10:27→21:32)
[2023-11-02] MEDS: OMEPRAZOLE 20 MG CAPSULE DR 40 MG PO (10:27)
[2023-11-02] MEDS: CALCIUM CARBONATE 500 MG CHEW PO ×4 (10:27→21:09)
[2023-11-02] MEDS: ASPIRIN 81 MG TABLET EC PO (10:28)
[2023-11-02] MEDS: MAGNESIUM OXIDE 400 MG TABLET 800 MG PO ×2 (10:29→21:06)
[2023-11-02] MEDS: VANCOMYCIN 125 MG CAPSULE PO ×4 (10:29→21:29)
[2023-11-02] MEDS: METOPROLOL TARTRATE 25 MG TABLET 50 MG PO ×2 (10:30→21:06)
[2023-11-02] MEDS: SERTRALINE 50 MG TABLET PO (10:30)
[2023-11-02] MEDS: SODIUM CHLORIDE 0.9 % (FLUSH) 10 ML SYRINGE 5 ML IVF ×2 (10:31→21:07)
[2023-11-02] MEDS: MAGNESIUM OXIDE 400 MG TABLET PO ×2 (10:32→21:06)
[2023-11-02] MEDS: cefTRIAXone 1 GM in 0.9 % SODIUM CHLORIDE Mini-bag 100 ML IVPB (10:32)
[2023-11-02] MEDS: PHENobarbitaL 65 MG/ML inj IVP ×2 (10:40→21:09)
--- NOTE | 2023-11-02 15:46 | PC.NURSE ---
Please see eMar for meds provided to this patient on day shift. Pt tolerated meds w/o dysphagia. Declined lunch tray, pt had gingerale and crackers. Oxycodone 5 mg prn given for back discomfort and pt was able to sleep. Pt continues to have loose stools secondary to her c-diff diagnosis. Report to Chiara La RN for evening shift.
--- NOTE | 2023-11-02 15:58 | PC.NURSE ---
Tele indicates NSR.
[2023-11-02] MEDS: NICOTINE 14 mg PATCH 1 PATCH TOPICAL (16:59)
--- NOTE | 2023-11-02 17:45 | PM.IMPN1 ---
Progress Note: A&P Assessment and plan (1) UTI (urinary tract infection): Problem details: UCx growing Klebsiella; continue ceftriaxone, day 6 of 7. Status: Acute (2) Alcohol withdrawal: Problem details: 10/28: addendum; spoke with son he states mother drinks Rum and Coke daily and is not honest about her drinking; will continue CIWA protocol ; continue MV and thiamine supplementation 11/01: Phenobarbital loading dose started on 10/31; additional phenobarbital today 11/01 11/02: doing well. CIWA scores low. D/c CIWA, does not need additional phenobarbital today. Status: Acute (3) History of alcohol abuse: Problem details: states last drink over one month ago; elevated LFTs, will trend; check RUQ US abdomen in AM abdomen soft, nt, nd, 10/30: RUQ Abdominal US showed no ascites severe Severe hepatic steatosis. Hepatomegaly. No ascites. Cholelithiasis. Status: Acute (4) Diarrhea: Problem details: found to be positive for c diff; oral vanco started on 10/29 Status: Acute (5) Rhabdomyolysis: Problem details: CK stabilized; stop IVF CK trended down. Do not need to check further. Status: Resolved (6) Generalized weakness: Problem details: PT, OT, SW consults; multifactorial; anticipate need for SNF at discharge; anticipated discharge TBD likely end of this week; not medically stable for discharge; attempted to call son vamshi today 10/29 for update but he did not answer 10/30: pt declines SNF; spoke with Vamshi today he is going to talk to mother 10/31: declines SNF and C 11/01: Commitment paperwork initiated. Status: Acute (7) Hypomagnesemia: Status: Resolved (8) Acute hypokalemia: Status: Resolved (9) Elevated troponin: Problem details: likely supply/demand ischemia; type II NSTEMI for electrolyte abnormalities, active infection; rhabdo; repeat trops have peaked and trending down; Echo completed with normal EF Status: Acute (10) Aspiration pneumonitis: Problem details: pneumonitis vs aspiration pneumonia; started on antibiotics on 10/28; allergies noted; ceftriaxone +doxycyline; 10/30 doxycyline stopped 11/02 ceftriaxone day 6 of 7. Status: Acute (11) Malnutrition: Problem details: Nutritional supplementation Status: Acute (12) Macrocytic anemia: Problem details: Suspect secondary to alcohol. Check iron studies, B12 and folate levels. Status: Acute (13) Elevated TSH: Problem details: Significance in the setting of acute and illness is unclear. Recheck as an outpatient. Status: Acute Plan Awaiting commitment, SNF placement. Subjective Time Seen by Provider: 14:55 Date Seen: 11/02/23 Interval history: Simona c/o ongoing diarrhea and wants to know when it will subside. Complains of headache. Exam Narrative: Exam Narrative: General: No acute distress. Awake, alert, oriented. No pallor. No jaundice. No tremor. Oropharynx: Clear. Mucous membranes moist. Cardiovascular: Regular rate and rhythm. No murmurs, gallops, or rubs. Respiratory: Clear to auscultation bilaterally. No wheezes or crackles. Abdomen: Bowel sounds present. Soft, nondistended, nontender. Extremities: No pedal edema. Const: Vital Signs, click to edit/add: Vital Signs - 24 hr 11/01/23 19:40 11/01/23 19:42 11/01/23 22:55 Temperature 97.9 F 97.9 F Pulse Rate 72 Pulse Rate [Left P ulse Oximeter] 75 75 Respiratory Rate 18 18 Blood Pressure [Ri ght Arm] 127/88 127/88 Pulse Oximetry 94 94 Oxygen Delivery Me thod Room Air Room Air Oxygen Flow Rate 2 11/01/23 23:00 11/01/23 23:55 11/02/23 02:51 Temperature 97.9 F 98.4 F Pulse Rate Pulse Rate [Left P ulse Oximeter] 70 70 71 Respiratory Rate 16 16 16 Blood Pressure [Ri ght Arm] 112/81 112/81 132/89 Pulse Oximetry 95 95 93 Oxygen Delivery Me thod Room Air Room Air Room Air Oxygen Flow Rate 2 11/02/23 03:26 11/02/23 07:35 11/02/23 08:40 Temperature 98.4 F 98.8 F Pulse Rate 73 Pulse Rate [Left P ulse Oximeter] 71 Respiratory Rate 16 18 Blood Pressure [Ri ght Arm] 132/89 144/82 H Pulse Oximetry 93 94 Oxygen Delivery Me thod Room Air Room Air Oxygen Flow Rate 11/02/23 16:56 Temperature 98.4 F Pulse Rate Pulse Rate [Left P ulse Oximeter] 71 Respiratory Rate 16 Blood Pressure [Ri ght Arm] 132/92 H Pulse Oximetry 96 Oxygen Delivery Me thod Room Air Oxygen Flow Rate Labs Labs: Laboratory Results - last 24 hr 11/02/23 05:42 WBC 4.47 L RBC 2.42 L Hgb 8.8 L Hct 26.9 L MCV 111 H MCH 36 H MCHC 33 Plt Count 146 Sodium 139 Potassium 3.9 Chloride 107 Carbon Dioxide 29 Anion Gap 3 L BUN 6 L Creatinine 0.4 L Estimated Creat Clear 49.94 Estimated GFR 112 Glucose 88 Calcium 8.3 L Ionized Calcium Sharyn 1.13 Phosphorus 3.2 Magnesium 1.5
[2023-11-02] MEDS: ENOXAPARIN 40 MG/0.4 ML INJ 30 MG SUBCUT (21:05)
--- NOTE | 2023-11-02 22:34 | PC.NURSE ---
Shift [id number]- Patient complains of some back pain and headache- oxycodone administered- see eMAR. She has 2 loose stools this shift. Occasional cough noted.
[2023-11-03] VITALS (9 sets, daily range): BP systolic 136–147; BP diastolic 93–105; PULSE 64–74; RESP 16–18; TEMP 36.2–36.9; O2SAT 95–98
--- NOTE | 2023-11-03 06:33 | PC.NURSE ---
End of shift [id number]: Alert and orientated.? VSS w/ sats >90% on RA. Denies pain. SBA w/ walker and gait belt. x1 loose stool this shift. Nicotine patch to right shoulder present. Uses call light appropriately. Appeared to rest comfortably throughout the night.
[2023-11-03] MEDS: OMEPRAZOLE 20 MG CAPSULE DR 40 MG PO (09:16)
[2023-11-03] MEDS: CALCIUM CARBONATE 500 MG CHEW PO ×4 (09:16→20:43)
[2023-11-03] MEDS: MAGNESIUM OXIDE 400 MG TABLET 800 MG PO (09:17)
[2023-11-03] MEDS: POTASSIUM CHLORIDE 10 MEQ CAPSULE ER 40 MEQ PO ×2 (09:17→17:44)
[2023-11-03] MEDS: ASPIRIN 81 MG TABLET EC PO (09:18)
[2023-11-03] MEDS: SERTRALINE 50 MG TABLET PO (09:18)
[2023-11-03] MEDS: VANCOMYCIN 125 MG CAPSULE PO ×4 (09:18→20:42)
[2023-11-03] MEDS: OXYCODONE 5 MG TABLET PO ×2 (09:18→20:42)
[2023-11-03] MEDS: METOPROLOL TARTRATE 25 MG TABLET 50 MG PO ×2 (09:19→20:43)
[2023-11-03] MEDS: MAGNESIUM OXIDE 400 MG TABLET PO (09:20)
[2023-11-03] MEDS: SODIUM CHLORIDE 0.9 % (FLUSH) 10 ML SYRINGE 5 ML IVF ×2 (09:30→20:43)
[2023-11-03] MEDS: LACTOBACILLUS ACIDOPHILUS 1 TABLET 2 TAB PO ×3 (10:16→17:44)
[2023-11-03] MEDS: cefTRIAXone 1 GM in 0.9 % SODIUM CHLORIDE Mini-bag 100 ML IVPB (12:27)
[2023-11-03] MEDS: NICOTINE 14 mg PATCH 1 PATCH TOPICAL (15:57)
--- NOTE | 2023-11-03 16:51 | PC.NURSE ---
Pt remains on c-diff enhanced precautions. Simona reports 4 small loose stools on day shift. Sanjana 75% of bkfst, declined lunch tray d/to abdominal cramping. She did have a cup of hot tea. Please see eMar for meds provided on day shift. No dysphagia with meds. Eupneic and in NAD. Tele indicates NSR. Continue POC, report to Chiara La oncoming shift MOE.
--- NOTE | 2023-11-03 18:48 | P.IMPN_ITS ---
Progress Note: A&P Assessment and plan (1) UTI (urinary tract infection): Problem details: UCx growing Klebsiella; continue ceftriaxone, day 7 of 7. Status: Acute (2) Alcohol withdrawal: Problem details: 10/28: addendum; spoke with son he states mother drinks Rum and Coke daily and is not honest about her drinking; will continue CIWA protocol ; continue MV and thiamine supplementation 11/01: Phenobarbital loading dose started on 10/31; additional phenobarbital today 11/01 11/02: doing well. CIWA scores low. D/c CIWA, stop phenobarbital Status: Acute (3) History of alcohol abuse: Problem details: states last drink over one month ago; elevated LFTs, will trend; check RUQ US abdomen in AM abdomen soft, nt, nd, 10/30: RUQ Abdominal US showed no ascites severe Severe hepatic steatosis. Hepatomegaly. No ascites. Cholelithiasis. Status: Acute (4) Diarrhea: Problem details: found to be positive for c diff; oral vanco started on 10/29 - stopping all oral magnesium 11/03 Status: Acute (5) Generalized weakness: Problem details: PT, OT, SW consults; multifactorial; anticipate need for SNF at discharge; ant icipated discharge TBD likely end of this week; not medically stable for discharge; attempted to call son vamshi today 10/29 for update but he did not answer 10/30: pt declines SNF; spoke with Vamshi today he is going to talk to mother 10/31: declines SNF and C 11/01: Commitment paperwork initiated. Status: Acute (6) Elevated troponin: Problem details: likely supply/demand ischemia; type II NSTEMI for electrolyte abnormalities, active infection; rhabdo; repeat trops have peaked and trending down; Echo c ompleted with normal EF Status: Acute (7) Aspiration pneumonitis: Problem details: pneumonitis vs aspiration pneumonia; started on antibiotics on 10/28; allergies noted; ceftriaxone +doxycyline; 10/30 doxycyline stopped 11/02 ceftriaxone day 6 of 7. Status: Acute (8) Malnutrition: Problem details: Nutritional supplementation Status: Acute (9) Macrocytic anemia: Problem details: Suspect secondary to alcohol. B12 and folate levels are unremarkable. Iron studies pending. Status: Acute (10) Elevated TSH: Problem details: Significance in the setting of acute and illness is unclear. Recheck as an outpatient. Status: Acute Plan Awaiting commitment, SNF placement. Subjective Time Seen by Provider: 17:10 Date Seen: 11/03/23 Interval history: Simona complains of ongoing diarrhea. I reviewed her medications with our pharmacist today. She has been on high doses of magnesium and so this is stopped. She has no other complaints. Exam Narrative: Exam Narrative: General: No acute distress. Awake, alert, oriented. No pallor. No jaundice. No tremor. Standing and moving about the room with ease. Oropharynx: Clear. Mucous membranes moist. Cardiovascular: Regular rate and rhythm. No murmurs, gallops, or rubs. Respiratory: Clear to auscultation bilaterally. No wheezes or crackles. Abdomen: Bowel sounds present. Soft, nondistended, nontender. Extremities: No pedal edema. Const: Vital Signs, click to edit/add: Vital Signs - 24 hr 11/02/23 19:00 11/02/23 22:59 11/02/23 23:51 Temperature 97.7 F 96.9 F L Pulse Rate 65 Pulse Rate [Left A pical] Pulse Rate [Left P ulse Oximeter] 70 65 Respiratory Rate 18 18 Blood Pressure [Ri ght Arm] 126/84 141/89 H Pulse Oximetry 97 96 Oxygen Delivery Tn thod Room Air Room Air 11/03/23 03:00 11/03/23 07:00 11/03/23 08:15 Temperature 98.4 F 98.2 F Pulse Rate 64 Pulse Rate [Left A pical] 70 Pulse Rate [Left P ulse Oximeter] 71 70 Respiratory Rate 16 18 Blood Pressure [Ri ght Arm] 140/93 H 144/96 H Pulse Oximetry 96 97 Oxygen Delivery Tn thod Room Air Room Air 11/03/23 13:00 11/03/23 15:14 11/03/23 16:00 Temperature 97.8 F 97.6 F Pulse Rate 69 Pulse Rate [Left A pical] 69 Pulse Rate [Left P ulse Oximeter] 70 Respiratory Rate 18 18 Blood Pressure [Ri ght Arm] 146/105 H 147/95 H Pulse Oximetry 95 95 [facility]
[2023-11-03] MEDS: ENOXAPARIN 40 MG/0.4 ML INJ 30 MG SUBCUT (20:42)
--- NOTE | 2023-11-03 23:18 | PC.NURSE ---
Shift [id number]- Patient complains of back pain this evening- oxycodone administered- see eMAR. She reports 3-4 loose stools this shift. Up ad lennie within room.
[2023-11-04] VITALS (11 sets, daily range): BP systolic 124–165; BP diastolic 78–103; PULSE 59–97; RESP 16; TEMP 36.4–36.8; O2SAT 93–97
[2023-11-04] MEDS: OMEPRAZOLE 20 MG CAPSULE DR 40 MG PO (06:10)
--- NOTE | 2023-11-04 06:19 | PC.NURSE ---
End of shift [id number]: Alert and orientated.? hypertensive?VS otherwise stable w/ sats >90% on RA. Denies pain. SBA w/ walker and gait belt. x2 loose stool this shift. Nicotine patch to right shoulder present. Pt appeared to rest comfortably throughout shift.
[2023-11-04] MEDS: VANCOMYCIN 125 MG CAPSULE PO ×4 (08:51→21:14)
[2023-11-04] MEDS: POTASSIUM CHLORIDE 10 MEQ CAPSULE ER 40 MEQ PO ×3 (08:51→18:47)
[2023-11-04] MEDS: CALCIUM CARBONATE 500 MG CHEW PO ×4 (08:51→21:15)
[2023-11-04] MEDS: ASPIRIN 81 MG TABLET EC PO (08:51)
[2023-11-04] MEDS: LACTOBACILLUS ACIDOPHILUS 1 TABLET 2 TAB PO ×3 (08:51→18:46)
[2023-11-04] MEDS: METOPROLOL TARTRATE 25 MG TABLET 50 MG PO ×2 (08:51→21:15)
[2023-11-04] MEDS: SODIUM CHLORIDE 0.9 % (FLUSH) 10 ML SYRINGE 5 ML IVF ×2 (08:52→21:15)
[2023-11-04] MEDS: SERTRALINE 50 MG TABLET PO (08:52)
[2023-11-04] MEDS: OXYCODONE 5 MG TABLET PO ×2 (08:54→18:52)
[2023-11-04] MEDS: LOPERAMIDE HCL 2 MG CAPSULE PO ×2 (15:10→18:47)
--- NOTE | 2023-11-04 15:44 | PC.SOCIAL ---
Discharge planning: Bambi Koroma-APS worker with [facility] came to the hospital today to meet with pt to complete a pre-petition screening for CD Commitment. She will be presenting the pt's case to the pre-petition screening team this afternoon. Social work to follow-up as needed.
--- NOTE | 2023-11-04 17:07 | PM.IMPN1 ---
Progress Note: A&P Assessment and plan (1) UTI (urinary tract infection): Problem details: UCx growing Klebsiella; completed 7 days of ceftriaxone, stopped 11/03. Status: Resolved (2) Aspiration pneumonitis: Problem details: pneumonitis vs aspiration pneumonia; started on antibiotics on 10/28; allergies noted; ceftriaxone +doxycyline; 10/30 doxycyline stopped 11/04 Completed 7 days of ceftriaxone. Status: Resolved (3) Diarrhea: Problem details: found to be positive for c diff; oral vanco started on 10/29 - 11/03 stopped all oral magnesium, started lactobacillus. - 11/04 Has been on vanco for 6 days, start imodium. Status: Acute (4) History of alcohol abuse: Problem details: states last drink over one month ago; elevated LFTs, will trend; check RUQ US abdomen in AM abdomen soft, nt, nd, 10/30: RUQ Abdominal US showed no ascites severe Severe hepatic steatosis. Hepatomegaly. No ascites. Cholelithiasis. Status: Acute (5) Generalized weakness: Problem details: PT, OT, SW consults; multifactorial; anticipate need for SNF at discharge; anticipated discharge TBD likely end of this week; not medically stable for discharge; attempted to call son vamshi today 10/29 for update but he did not answer 10/30: pt declines SNF; spoke with Vamshi today he is going to talk to mother 10/31: declines SNF and [facility] 11/01: Commitment paperwork initiated. Status: Acute (6) Elevated troponin: Problem details: likely supply/demand ischemia; type II NSTEMI for electrolyte abnormalities, active infection; rhabdo; repeat trops have peaked and trending down; Echo completed with normal EF Status: Acute (7) Malnutrition: Problem details: Nutritional supplementation Status: Acute (8) Macrocytic anemia: Problem details: Suspect secondary to alcohol. B12 and folate levels are unremarkable. Iron studies pending. Status: Acute (9) Elevated TSH: Problem details: Significance in the setting of acute and illness is unclear. Recheck as an outpatient. Status: Acute Plan Awaiting commitment, SNF placement. No safe discharge plan at present. Subjective Time Seen by Provider: 13:10 Date Seen: 11/04/23 Interval history: Simona c/o ongoing diarrhea. I spoke with her son who said she takes Metamucil at home for IBS. Exam Narrative: Exam Narrative: General: No acute distress. Awake, alert, oriented. Oropharynx: Clear. Mucous membranes moist. Cardiovascular: Regular rate and rhythm. No murmurs, gallops, or rubs. Respiratory: Clear to auscultation bilaterally. No wheezes or crackles. Abdomen: Bowel sounds present. Soft, nondistended, nontender. Const: Vital Signs, click to edit/add: Vital Signs - 24 hr 11/03/23 19:06 11/03/23 22:57 11/03/23 23:00 Temperature 98.5 F 97.1 F L Pulse Rate 66 Pulse Rate [Left A pical] 67 Pulse Rate [Left P ulse Oximeter] 74 Respiratory Rate 18 16 Blood Pressure [Ri ght Arm] 136/100 H 147/98 H Pulse Oximetry 98 95 Oxygen Delivery Me thod Room Air Room Air 11/04/23 03:09 11/04/23 07:11 11/04/23 07:40 Temperature 97.7 F 97.9 F Pulse Rate 62 Pulse Rate [Left A pical] 71 Pulse Rate [Left P ulse Oximeter] 94 97 Respiratory Rate 16 16 Blood Pressure [Ri ght Arm] 146/89 H 157/97 H Pulse Oximetry 97 97 Oxygen Delivery Me thod Room Air Room Air 11/04/23 07:40 11/04/23 11:25 11/04/23 15:00 Temperature 97.8 F 98.3 F Pulse Rate Pulse Rate [Left A pical] 71 65 68 Pulse Rate [Left P ulse Oximeter] Respiratory Rate 16 16 16 Blood Pressure [Ri ght Arm] 128/92 H 165/103 H Pulse Oximetry 97 93 Oxygen Delivery Me thod Room Air Room Air 11/04/23 15:41 11/04/23 15:43 Temperature Pulse Rate 63 Pulse Rate [Left A pical] 68 Pulse Rate [Left P ulse Oximeter] 97 Respiratory Rate 16 Blood Pressure [Ri ght Arm] Pulse Oximetry Oxygen Delivery Me thod
[2023-11-04] MEDS: NICOTINE 14 mg PATCH 1 PATCH TOPICAL (18:48)
--- NOTE | 2023-11-04 19:39 | PC.NURSE ---
End of shift: pt is very pleasant. she does has a flat affect. she is alert x4. she had some abd discomfort. she got po oxycodone. she is up with SBA with walker and gait belt to BR. SL in the right a/c is patent. Mepilex to coccyx intact. Nicotine patch to left shoulder. Tele, NSR. she is cooperative and listen to the nurse. she has been in the chair and bed. she had a shower today. she is eating better
--- NOTE | 2023-11-04 19:40 | PC.NURSE ---
End of shift: pt is very pleasant. she does has a flat affect. she is alert x4. she had some abd discomfort. she got po oxycodone. she is up with SBA with walker and gait belt to BR.. SL i nt eh right a/c is patent. Mepilex to coccyx intact. Nicotine patch to left shoulder. wyatt, NSR. she is cooperative and listen to the nurse. she has been in the chair and bed. she is eating better
[2023-11-04] MEDS: ENOXAPARIN 40 MG/0.4 ML INJ 30 MG SUBCUT (21:15)
[2023-11-05] VITALS (8 sets, daily range): BP systolic 127–150; BP diastolic 83–115; PULSE 63–76; RESP 1–18; TEMP 36.4–36.8; O2SAT 94–99
--- NOTE | 2023-11-05 04:47 | PC.NURSE ---
Pt pleasant and cooperative. A little up set at son for filing the volnerable adult. Was encourage to talk with son when he is in today. She is up independantly in room and does well. VSS No c/o pain this shift.
[2023-11-05] MEDS: OMEPRAZOLE 20 MG CAPSULE DR 40 MG PO (07:45)
[2023-11-05] MEDS: VANCOMYCIN 125 MG CAPSULE PO ×4 (09:17→22:04)
[2023-11-05] MEDS: POTASSIUM CHLORIDE 10 MEQ CAPSULE ER 40 MEQ PO ×3 (09:17→17:03)
[2023-11-05] MEDS: METOPROLOL TARTRATE 25 MG TABLET 50 MG PO ×2 (09:17→22:04)
[2023-11-05] MEDS: CALCIUM CARBONATE 500 MG CHEW PO ×4 (09:17→22:05)
[2023-11-05] MEDS: OXYCODONE 5 MG TABLET PO ×3 (09:18→22:50)
[2023-11-05] MEDS: SERTRALINE 50 MG TABLET PO (09:18)
[2023-11-05] MEDS: ASPIRIN 81 MG TABLET EC PO (09:18)
[2023-11-05] MEDS: SODIUM CHLORIDE 0.9 % (FLUSH) 10 ML SYRINGE 5 ML IVF ×2 (09:19→22:06)
--- NOTE | 2023-11-05 09:25 | PM.IMPN1 ---
Progress Note: A&P Assessment and plan (1) Guardianship: Problem details: - PENDING 10/30: pt declines SNF; spoke with Ranjit today he is going to talk to mother 10/31: declines SNF and [facility] 11/01: Commitment paperwork initiated. Status: Acute (2) Diarrhea: Problem details: - C diff positive; oral vanco started on 10/29 - 11/03 stopped all oral magnesium, started lactobacillus. - 11/04 Has been on vanco for 6 days, start imodium. - 11/05 Decreased BM frequency. Status: Acute (3) History of alcohol abuse: Problem details: states last drink over one month ago; elevated LFTs, will trend; check RUQ US abdomen in AM abdomen soft, nt, nd, 10/30: RUQ Abdominal US showed no ascites severe Severe hepatic steatosis. Hepatomegaly. No ascites. Cholelithiasis. Status: Acute (4) Generalized weakness: Problem details: PT, OT, SW consults; multifactorial; anticipate need for SNF at discharge since she is not yet independent with ADLs and PT/OT recommending rehab; patient refused; guardianship pending. No safe discharge plan. Status: Acute (5) Elevated troponin: Problem details: likely supply/demand ischemia; type II NSTEMI for electrolyte abnormalities, active infection; rhabdo; repeat trops have peaked and trending down; Echo completed with normal EF Status: Acute (6) Malnutrition: Problem details: Nutritional supplementation Status: Acute (7) Macrocytic anemia: Problem details: Suspect secondary to alcohol. B12 and folate levels are unremarkable. Iron studies not markedly abnormal. Status: Acute (8) Elevated TSH: Problem details: Significance in the setting of acute and illness is unclear. Recheck as an outpatient. Status: Acute (9) UTI (urinary tract infection): Problem details: UCx growing Klebsiella; completed 7 days of ceftriaxone, stopped 11/03. Status: Resolved (10) Alcohol withdrawal: Problem details: 10/28: addendum; spoke with son he states mother drinks Rum and Coke daily and is not honest about her drinking; will continue CIWA protocol ; continue MV and thiamine supplementation 11/01: Phenobarbital loading dose started on 10/31; additional phenobarbital today 11/01 11/02: doing well. CIWA scores low. D/c CIWA, stop phenobarbital Status: Resolved (11) Rhabdomyolysis: Problem details: CK stabilized; stop IVF CK trended down. Do not need to check further. Status: Resolved (12) Aspiration pneumonitis: Problem details: pneumonitis vs aspiration pneumonia; started on antibiotics on 10/28; allergies noted; ceftriaxone +doxycyline; 10/30 doxycyline stopped 11/04 Completed 7 days of ceftriaxone. Status: Resolved Subjective Time Seen by Provider: 09:00 Date Seen: 11/05/23 Interval history: Simona tells me she had a great night. She has not had any BM since yesterday afternoon and so she slept through the night for the first time in a while. She has no other concerns. reports guardianship is still pending. [facility] met with Simona yesterday and is presenting the case to the preliminary hearing today. Exam Narrative: Exam Narrative: General: No acute distress. Awake, alert, oriented. Affect: bright. Oropharynx: Clear. Mucous membranes moist. Cardiovascular: Regular rate and rhythm. No murmurs, gallops, or rubs. Respiratory: Clear to auscultation bilaterally. No wheezes or crackles. Abdomen: Bowel sounds present. Soft, nondistended, nontender. Const: Vital Signs, click to edit/add: Vital Signs - 24 hr 11/04/23 11:25 11/04/23 15:00 11/04/23 15:41 Temperature 97.8 F 98.3 F Pulse Rate 63 Pulse Rate [Left A pical] 65 68 Pulse Rate [Left P ulse Oximeter] Respiratory Rate 16 16 Blood Pressure [Ri ght Arm] 128/92 H 165/103 H Pulse Oximetry 97 93 Oxygen Delivery Me thod Room Air Room Air 11/04/23 15:43 11/04/23 20:16 11/04/23 22:00 Temperature Pulse Rate 59 L Pulse Rate [Left A pical] 68 Pulse Rate [Left P ulse Oximeter] 97 97 Respiratory Rate 16 16 Blood Pressure [Ri ght Arm] 139/100 H Pulse Oximetry 95 Oxygen Delivery Me thod Room Air 11/04/23 23:41 11/04/23 23:42 11/05/23 05:16 Temperature 97.5 F L 97.9 F Pulse Rate 59 L Pulse Rate [Left A pical] 62 Pulse Rate [Left P ulse Oximeter] 64 Respiratory Rate 16 16 Blood Pressure [Ri ght Arm] 124/78 141/109 H Pulse Oximetry 95 95 Oxygen Delivery Me thod Room Air Room Air 11/05/23 07:00 11/05/23 07:35 Temperature 98.3 F Pulse Rate 63 Pulse Rate [Left A pical] 71 Pulse Rate [Left P ulse Oximeter] 71 Respiratory Rate 18 Blood Pressure [Ri ght Arm] 150/115 H Pulse Oximetry 99 Oxygen Delivery Me thod Room Air
--- NOTE | 2023-11-05 10:02 | PC.SOCIAL ---
Discharge planning: grain elevator worker spoke to Bambi Koroma-APS worker from [facility] today and she told this worker that the pre-petition screening committee approved pursuing a CD Commitment for the pt. Bambi will work on filing the paperwork with the court system and send over a copy to the hospital when she is able. Social work to follow-up as needed.
[2023-11-05] MEDS: LACTOBACILLUS ACIDOPHILUS 1 TABLET 2 TAB PO ×3 (10:05→17:03)
[2023-11-05] MEDS: LOPERAMIDE HCL 2 MG CAPSULE PO (11:52)
--- NOTE | 2023-11-05 15:48 | PC.NURSE ---
Please see eMar for medications provided. Tele NSR with elevated ST noted. Pt had one small loose BM treated with immodium after eval by Dr. Horton this am. Enhanced contact precautions continue. Telemetry discontinued per verbal order of Dr. Horton. Pt rested between nsg interventions and she showered herself this afternoon w/o difficulty. Report to Aileen ROSA for evening shift.
[2023-11-05] MEDS: NICOTINE 14 mg PATCH 1 PATCH TOPICAL (17:03)
[2023-11-05] MEDS: ENOXAPARIN 30 MG/0.3ML INJ SUBCUT (22:50)
[2023-11-06 06:00] VITALS: RESP 16
[2023-11-06] MEDS: OMEPRAZOLE 20 MG CAPSULE DR 40 MG PO (06:52)
--- NOTE | 2023-11-06 08:03 | PC.NURSE ---
Patient pleasant, alert and oriented this shift. Requested PRN oxycodone at HS for pain rated 8/10 in low back. Reports having had 3 small loose stools during the night. Up walking independently in room.
[2023-11-06 08:32] VITALS: BP 153/97; PULSE 73; RESP 18; TEMP 37.1; O2SAT 98
[2023-11-06] MEDS: POTASSIUM CHLORIDE 10 MEQ CAPSULE ER 40 MEQ PO ×3 (09:08→17:47)
[2023-11-06] MEDS: METOPROLOL TARTRATE 25 MG TABLET 50 MG PO ×2 (09:09→21:05)
[2023-11-06] MEDS: LACTOBACILLUS ACIDOPHILUS 1 TABLET 2 TAB PO ×3 (09:09→17:47)
[2023-11-06] MEDS: VANCOMYCIN 125 MG CAPSULE PO ×4 (09:09→21:05)
[2023-11-06] MEDS: LOPERAMIDE HCL 2 MG CAPSULE PO ×3 (09:09→21:04)
[2023-11-06] MEDS: OXYCODONE 5 MG TABLET PO ×2 (09:09→17:54)
[2023-11-06] MEDS: CALCIUM CARBONATE 500 MG CHEW PO ×4 (09:09→21:06)
[2023-11-06] MEDS: ASPIRIN 81 MG TABLET EC PO (09:09)
[2023-11-06] MEDS: SODIUM CHLORIDE 0.9 % (FLUSH) 10 ML SYRINGE 5 ML IVF ×2 (10:08→21:07)
[2023-11-06] MEDS: SERTRALINE 50 MG TABLET PO (10:08)
[2023-11-06 13:00] VITALS: BP 134/104; PULSE 72; RESP 18; TEMP 36.9; O2SAT 96
--- NOTE | 2023-11-06 13:29 | P.IMPN_ITS ---
Progress Note: A&P Assessment and plan (1) Guardianship: Problem details: - PENDING 10/30: pt declines SNF; spoke with Ranjit today he is going to talk to mother 10/31: declines SNF and [facility] 11/01: Commitment paperwork initiated 11/06: Remains pending Status: Acute (2) Diarrhea: Problem details: - C diff positive; oral vanco started on 10/29 - 11/03 stopped all oral magnesium, started lactobacillus. - 11/04 Has been on vanco for 6 days, start imodium. - 11/05 Decreased BM frequency. -11/06 continues on vanco, p.r.n. Imodium Status: Acute (3) History of alcohol abuse: Problem details: states last drink over one month ago; elevated LFTs, will trend; check RUQ US abdomen in AM abdomen soft, nt, nd, 10/30: RUQ Abdominal US showed no ascites severe Severe hepatic steatosis. Hepatomegaly. No ascites. Cholelithiasis. Status: Acute (4) Generalized weakness: Problem details: PT, OT, SW consults; multifactorial; anticipate need for SNF at discharge since she is not yet independent with ADLs and PT/OT recommending rehab; patient refused; guardianship pending. No safe discharge plan. Status: Acute (5) Elevated troponin: Problem details: likely supply/demand ischemia; type II NSTEMI for electrolyte abnormalities, active infection; rhabdo; repeat trops have peaked and trending down; Echo completed with normal EF Status: Acute (6) Malnutrition: Problem details: Nutritional supplementation Status: Acute (7) Macrocytic anemia: Problem details: Suspect secondary to alcohol. B12 and folate levels are unremarkable. Iron studies not markedly abnormal. Status: Acute (8) Elevated TSH: Problem details: Significance in the setting of acute and illness is unclear. Recheck as an outpatient. Status: Acute (9) UTI (urinary tract infection): Problem details: UCx growing Klebsiella; completed 7 days of ceftriaxone, stopped 11/03. Status: Resolved (10) Alcohol withdrawal: Problem details: 10/28: addendum; spoke with son he states mother drinks Rum and Coke daily and is not honest about her drinking; will continue CIWA protocol ; continue MV and thiamine supplementation 11/01: Phenobarbital loading dose started on 10/31; additional phenobarbital today 11/01 11/02: doing well. CIWA scores low. D/c CIWA, stop phenobarbital 11/06: Remains asymptomatic Status: Resolved (11) Rhabdomyolysis: Problem details: CK stabilized; stop IVF CK trended down. Do not need to check further. Status: Resolved (12) Aspiration pneumonitis: Problem details: pneumonitis vs aspiration pneumonia; started on antibiotics on 10/28; allergies noted; ceftriaxone +doxycyline; 10/30 doxycyline stopped 11/04 Completed 7 days of ceftriaxone Status: Resolved Plan 11/06: Medically stable for discharge, awaiting guardianship/commitment, SNF placement Time Spent With Patient Total time spent: Total time spent caring for the patient today was 45 minutes. This includes time spent for the visit reviewing the chart, time spent during the visit, time spent after the visit and documentation and planning in coordination of care. Subjective Date Seen: 11/06/23 Interval history: Patient reports not sleeping well and she awoke with a bowel movement overnight. Did not take an Imodium as she usually does. Denies abdominal pain. No nausea or vomiting. Denies headache or dizziness. Tolerating orals which she tells me do not affect her stools. Awaiting commitment, SNF placement. Exam Narrative: Exam Narrative: PHYSICAL EXAM General: Lying in bed on right side, NAD HEENT: Normocephalic, atraumatic, sclera white, EOMI, oral mucosa moist Cardiovascular: RRR, S1S2. No pitting edema Pulmonary: CTA bilaterally without rhonchi, rales, expiratory wheezes. No dyspnea Abdominal: Soft, nondistended, NTTP, no guarding Neurological: Alert, answering questions appropriately, cranial nerves intact, no focal findings Extremities: No gross joint deformity or swelling. AROMI. Neurovascularly intact Skin: Warm, dry. Const: Vital Signs, click to edit/add: Vital Signs - 24 hr 11/05/23 15:00 11/05/23 15:00 11/05/23 20:00 Temperature 97.5 F L 98.2 F Pulse Rate [Left A pical] 74 Pulse Rate [Left P ulse Oximeter] 76 Respiratory Rate 18 18 16 Blood Pressure [Ri ght Arm] 134/83 127/88 Pulse Oximetry 94 97 Oxygen Delivery Me thod Room Air Room Air 11/05/23 22:01 11/05/23 23:30 11/06/23 06:00 Temperature Pulse Rate [Left A pical] Pulse Rate [Left P ulse Oximeter] Respiratory Rate 1 L 16 16 Blood Pressure [Ri ght Arm] Pulse Oximetry Oxygen Delivery Me thod 11/06/23 08:32 Temperature 98.8 F Pulse Rate [Left A pical] 73 Pulse Rate [Left P ulse Oximeter] 73 Respiratory Rate 18 Blood Pressure [Ri ght Arm] 153/97 H Pulse Oximetry 98 Oxygen Delivery Me thod Room Air
--- NOTE | 2023-11-06 14:31 | PC.NURSE ---
Please see eMar for meds provided on day shift. Bkfst tray and chocolate Ensure for lunch. Precautions persist. UAL in room. Pt rested at intervals. Continue plan of care, report will be provided to oncoming shift RN.
[2023-11-06 15:00] VITALS: BP 118/89; PULSE 64; RESP 18; TEMP 37.2; O2SAT 96
--- NOTE | 2023-11-06 15:55 | PC.SOCIAL ---
Discharge planning: unit control worker called Bambi Koroma with [facility] today to see if there was a court date for pt's CD Commitment yet. Bambi informed this social welfare administrator that the [employer] reviewed the case and will not be pursuing CD Commitment for this pt and is instead looking at pursuing Guardianship and has been in discussion about this with the pt's son. Bambi stated that pt's son is looking at hiring a lead technician for the Guardianship process. unit control worker informed Bambi that the pt was discharged from PT yesterday and is no longer in need of a SNF and is medically ready to be discharged. Bambi stated that she was going to try and get a hold of the son to inform him of the pt's status. Bambi was not able to get a hold of the son. Bambi also asked if this social welfare administrator could see if the provider would be willing to write a statement in support of Guardianship for the pt. unit control worker will check with the provider on that. unit control worker tried calling pt's son, but had to leave a message. Social work to follow-up as needed.
[2023-11-06] MEDS: NICOTINE 14 mg PATCH 1 PATCH TOPICAL (16:55)
[2023-11-06 19:00] VITALS: BP 150/89; PULSE 76; RESP 16; TEMP 36.8; O2SAT 98
[2023-11-06] MEDS: ENOXAPARIN 30 MG/0.3ML INJ SUBCUT (21:06)
[2023-11-06 23:30] VITALS: RESP 18
[2023-11-07] MEDS: OMEPRAZOLE 20 MG CAPSULE DR 40 MG PO (05:41)
[2023-11-07 06:00] VITALS: RESP 18
--- NOTE | 2023-11-07 06:29 | PC.NURSE ---
Patient pleasant, alert and cooperative. Denied pain. Ambulates and uses toilet independently. Reports no loose stools tonight. VSS.?
[2023-11-07 07:00] VITALS: BP 162/99; PULSE 65; RESP 18; TEMP 37.1; O2SAT 98
[2023-11-07] MEDS: VANCOMYCIN 125 MG CAPSULE PO ×2 (09:27→12:31)
[2023-11-07] MEDS: OXYCODONE 5 MG TABLET PO ×2 (09:28→16:25)
[2023-11-07] MEDS: ASPIRIN 81 MG TABLET EC PO (09:28)
[2023-11-07] MEDS: CALCIUM CARBONATE 500 MG CHEW PO ×2 (09:28→12:31)
[2023-11-07] MEDS: LOPERAMIDE HCL 2 MG CAPSULE PO (09:28)
[2023-11-07] MEDS: METOPROLOL TARTRATE 25 MG TABLET 50 MG PO (09:28)
[2023-11-07] MEDS: POTASSIUM CHLORIDE 10 MEQ CAPSULE ER 40 MEQ PO ×2 (09:29→12:31)
[2023-11-07] MEDS: LACTOBACILLUS ACIDOPHILUS 1 TABLET 2 TAB PO ×2 (09:29→12:31)
[2023-11-07] MEDS: SERTRALINE 50 MG TABLET PO (09:36)
--- NOTE | 2023-11-07 10:11 | PC.SOCIAL ---
Addendum entered by BRANDY Montes 11/07/23 12:22: Discharge planning: die set up worker and Hospitalist discussed pt's discharge plan. Explained that a CD Commitment was no longer being pursued by the [facility] and that Guardianship was now being pursued. Discussed with the Hospitalist the sons thoughts about discharge and asked if the Hospitalist could write a statement in support of Guardianship. Hospitalist provided this child welfare social worker with the Guardianship support letter and this child welfare social worker sent it to Bambi Koroma at [facility]. die set up worker informed the pt that she will be discharging today between 4pm-5pm and that her son will pick her up. Pt was very pleased with this news. die set up worker provided pt with information about safety alert/life alert pendants. die set up worker also provided pt with a copy of her Important Message to Medicare form. Social work to follow-up as needed. Original Note: Discharge planning: die set up worker spoke to pt today in her room. Pt would really like to go home after discharge for the holidays. Pt stated that her and her son are looking into getting a life alert pendant for her to use incase she falls again at home and can't call for help. Pt declined wanting any type of outpatient services at discharge. die set up worker talked about outpatient CD treatment or even Mental Health therapy, but pt is not interested in those at this time. Pt is medically ready to discharge and does not need SNF placement, as she is independent in all of her cares and transfers. die set up worker talked with pt's son, Fahad, and explained pt's status and that she is medically ready to discharge and would like to go home. Fahad said that he was okay with that plan and that he could pick her up today between 4pm-5pm and get her home safely with some groceries. He stated that him and his cleaned up the apartment for the pt and removed all the old liquor bottles. Fahad stated that he is still going to pursue Guardianship for his mother and is in contact with several carpenter refrigerator. die set up worker left a message with Bambi Koroma from [facility] about this plan. Social work to follow-up as needed.
--- NOTE | 2023-11-07 10:41 | PM.IMPN1 ---
Subjective Date Seen: 11/07/23 Exam Const: Vital Signs, click to edit/add: Vital Signs - 24 hr 11/06/23 13:00 11/06/23 15:00 11/06/23 15:00 Temperature 98.5 F 98.9 F Pulse Rate [Left A pical] Pulse Rate [Left P ulse Oximeter] 72 64 64 Respiratory Rate 18 18 18 Blood Pressure [Ri ght Arm] 134/104 H 118/89 Pulse Oximetry 96 96 Oxygen Delivery Me thod Room Air Room Air 11/06/23 19:00 11/06/23 23:30 11/07/23 06:00 Temperature 98.2 F Pulse Rate [Left A pical] Pulse Rate [Left P ulse Oximeter] 76 Respiratory Rate 16 18 18 Blood Pressure [Ri ght Arm] 150/89 H Pulse Oximetry 98 Oxygen Delivery Me thod Room Air 11/07/23 07:00 Temperature 98.8 F Pulse Rate [Left A pical] 65 Pulse Rate [Left P ulse Oximeter] 65 Respiratory Rate 18 Blood Pressure [Ri ght Arm] 162/99 H Pulse Oximetry 98 Oxygen Delivery Me thod Room Air
[2023-11-07 10:57] VITALS: PULSE 71; RESP 18; TEMP 36; O2SAT 97
--- NOTE | 2023-11-07 11:58 | P.DS_ITS ---
DS: Providers Provider Date Seen: 11/07/23 Date of admission: 10/28/23 03:36 Primary care physician: Not a Local Provider Admitting Clinician: Saud Bolivar MD Consults: 10/28/23 03:34 Consult to Nutrition [CONS] Routine Comment: Reason for consult:: Nutritional Consult Consult to Physical Therapy [CONS] Routine Comment: Reason(s) for PT Consult:: Evaluate and Treat Any Restrictions?:: No Restrictions 10/28/23 07:51 Consult to Occupational Therapy [CONS] Routine Comment: Reason(s) for OT Consult:: Difficulty Managing ADLs Any Restrictions?:: No Restrictions 10/28/23 11:11 Consult to Xerox Machine Operator [CONS] Routine Comment: Alcoholism; lives alone; frequent falls, Reason for Consult:: Discharge Planning Needs Substance Abuse Screening Attending Physician on discharge: Dee Ma [facility] Date of Discharge: 11/07/23 DS: Diagnosis Discharge Diagnosis (1) Electrolyte abnormality: Status: Acute Problem details: Hypomagnesemia and hypokalemia, in setting of alcohol abuse, rhabdomyolysis, managed and resolved with supplementation. (2) Diarrhea: Status: Acute Problem details: Patient tested positive for C difficile, completed a 10 day course of oral vancomycin prior to discharge. (3) History of alcohol abuse: Status: Acute Problem details: Active alcohol use, per son is not honest with daily use. RUQ Abdominal US showed no ascites, Severe hepatic steatosis. Hepatomegaly. Cholelithiasis. Discharged with daily thiamine/folate/MVI Encouraged to continue with alcohol cessation following period of sobriety during hospitalization. Son and family in agreement. (4) Generalized weakness: Status: Acute Problem details: PT, OT, SW consults. Improved prior to discharge, no longer requiring short- term rehab or outpatient therapy. [place] prior to discharge . (5) Elevated troponin: Status: Acute Problem details: likely supply/demand ischemia; type II NSTEMI for electrolyte abnormalities, active infection; rhabdo; repeat trops have peaked and trending down; Echo completed with normal EF (6) Malnutrition: Status: Acute Problem details: Nutritional supplementation. Recommend outpatient follow-up with dietitian. (7) Macrocytic anemia: Status: Acute Problem details: Suspect secondary to alcohol. B12 and folate levels are unremarkable. Iron studies not markedly abnormal. (8) Elevated TSH: Status: Acute Problem details: Significance in the setting of acute and illness is unclear. Recheck as an outpatient with PCP. (9) UTI (urinary tract infection): Status: Resolved Problem details: UCx growing Klebsiella; completed 7 days of ceftriaxone, stopped 11/03. (10) Alcohol withdrawal: Status: Resolved Problem details: Son reported mother drinks Rum and Coke daily and is not honest about her drinking. Withdrawal managed with phenobarbital during hospitalization. Continued MV and thiamine supplementation following discharge (11) Rhabdomyolysis: Status: Resolved Problem details: Resolved following IV fluid resuscitation (12) Aspiration pneumonitis: Status: Resolved Problem details: pneumonitis vs aspiration pneumonia; started on antibiotics on 10/28, completing a 7 day course of ceftriaxone (13) Guardianship: Status: Acute Problem details: Shortly after admission, patient declining SNF or other short-term healthcare setting for ongoing management. Paperwork for commitment was initiated for concern of ongoing alcohol abuse, poor insight to health and consequences of ongoing use. Per social science teacher, commitment rejected by [facility]. Guardianship assessment started. Prior to discharge, MOCA . Patient of sound mind to make own decisions. director of cardiopulmonary services had a lengthy conversation with son and family with family reporting to assist mother on discharge back to home including check ins, Life Alert, taking away her car. They had already been in to her home to clean it up and have removed old bottles of alcohol. On day of discharge, A letter to the [facility] recommending guardianship, beginning with her family, was completed. DS: Summary Hospital Course Hospital Course: [age] year old female past medical history significant for alcohol abuse/dependence, hypertension, depression, tobacco dependence was admitted to the medical floor for management of electrolyte derangement, rhabdomyolysis, alcohol withdrawal in setting of alcohol dependence. Course of care and details as noted above. Close follow-up with PCP. Continued supplementation with vitamin, folate, MVI. Patient and family to discuss appointment of guardian, HCD, POA. Remainder of chronic medical comorbidities were monitored and managed with home medications. Time Spent with Patient Time attestation: Total time spent providing and/or coordinating discharge services: Exam Narrative: Exam Narrative: PHYSICAL EXAM General: Pleasant, conversant, NAD Cardiovascular: RRR Pulmonary: No dyspnea Neurological: Alert, answering questions appropriately Skin: Warm, dry. Const: Vital Signs, click to edit/add: Vital Signs - 24 hr 11/06/23 13:00 11/06/23 15:00 11/06/23 15:00 Temperature 98.5 F 98.9 F Pulse Rate [Left A pical] Pulse Rate [Left P ulse Oximeter] 72 64 64 Respiratory Rate 18 18 18 Blood Pressure [Ri ght Arm] 134/104 H 118/89 Pulse Oximetry 96 96 Oxygen Delivery Me thod Room Air Room Air 11/06/23 19:00 11/06/23 23:30 11/07/23 06:00 Temperature 98.2 F Pulse Rate [Left A pical] Pulse Rate [Left P ulse Oximeter] 76 Respiratory Rate 16 18 18 Blood Pressure [Ri ght Arm] 150/89 H Pulse Oximetry 98 Oxygen Delivery Me thod Room Air 11/07/23 07:00 11/07/23 10:57 Temperature 98.8 F 96.8 F L Pulse Rate [Left A pical] 65 71 Pulse Rate [Left P ulse Oximeter] 65 71 Respiratory Rate 18 18 Blood Pressure [Ri ght Arm] 162/99 H Pulse Oximetry 98 97 Oxygen Delivery Me thod Room Air Room Air Discharge Plan Discharge Disposition: Home, Self-Care Date of Admission: 10/28/23 03:36 Attending Provider on Discharge: Dee Ma Primary Care Provider: Provider,Not a Local Condition: Improved Anticipated Discharge Date/Time: 11/07/23 11:00 Discharge Medications: New vitamin B complex-folic acid 0.4 mg Tablet 1 tab PO DAILY Qty: 90 0RF nicotine 14 mg/24 hr Patch 24 Hour 1 patch topical Q24H Qty: 15 0RF metoprolol tartrate 25 mg Tablet 50 mg PO BID Qty: 120 0RF potassium chloride 20 mEq tablet extended release 40 meq PO BID Qty: 120 0RF Continued aspirin 81 mg tablet,delayed release (DR/EC) 81 mg PO DAILY dronabinol 2.5 mg capsule 2.5 mg PO BID pantoprazole 40 mg tablet,delayed release (DR/EC) 40 mg PO DAILY nitroglycerin 0.4 mg tablet, sublingual 0.4 - 0.8 mg sublingual Q5M sertraline 50 mg tablet 50 mg PO DAILY rosuvastatin 20 mg tablet 20 mg PO QPM magnesium oxide 400 mg (241.3 mg magnesium) tablet 800 mg PO BID losartan 25 mg tablet 25 mg PO DAILY polyethylene glycol 3350 [ClearLax] 17 gram/dose powder 17 g PO BID albuterol sulfate [Ventolin HFA] 90 mcg/actuation HFA aerosol inhaler 2 inh inhalation Q6H PRN loperamide [Imodium A-D] 2 mg capsule 2 mg PO Q6H PRN Discontinued potassium chloride 20 mEq tablet,ER particles/crystals 20 meq PO QID metoprolol tartrate 25 mg tablet 12.5 mg PO Q12H Discharge Orders: Discharge Order (Routine); Ordered 11/07/23 Ordered By: Dee Ma Patient Education: Metoprolol (By mouth), Potassium Chloride (By mouth), Nicotine (Absorbed through the skin), Vitamin B Complex (By mouth) (B-50 Complex, B6-Folic Acid, Balanced..., Abuse of Alcohol (GEN), Alcohol Dependence (GEN) Additional Instructions: You have completed a course of oral antibiotics for C difficile and a course of IV antibiotics for aspiration pneumonia. Your electrolytes have improved with fluids and supplementation. It is important that you continue to refrain from alcohol use as this can lead to life-threatening results. We highly recommend you speak with your family members to appoint a healthcare director, power of contract attorney to assist you in making decisions when you are unable to do so. We recommend that you look into a Life Alert system as well. You should take a daily thiamine and a multivitamin with folic acid. These have been prescribed for you. Activity Level: No Restrictions and Activity as Tolerated Discharge Diet: Regular Follow Up Appointments: Provider,Not a Local [Primary Care Provider] - 11/15/23 (Close follow-up with PCP or primary clinic for post hospital evaluation. ) LIDIA CAMPOS DO [Referring] - 11/14/23 11:25 am ([facility] for follow-up.) Forms: [employer] Info Instructions
--- NOTE | 2023-11-07 14:32 | PC.NURSE ---
IV discontinued. Pt UAL in room and she showered herself, dressed herself, fed herself. No loose stools reported, Pt voided 3 times. Eval by Dee Ma and hospital social worker. Pt will d/c to home this afternoon between 4-5 pm when her son Ranjit gets off work to transfer her home. Report will be provided to oncoming shift RN. Enhanced precautions continue for +C-diff.
[2023-11-07] MEDS: NICOTINE 14 mg PATCH 1 PATCH TOPICAL (16:23)
--- NOTE | 2023-11-07 17:21 | PC.NURSE ---
Discharge 1700- Patient IV previously removed per RN report. Patient given discharge instructions verbally and in print. She states understanding. She leaves with all belongings with son.
== END 2023-11-07 17:00 | disposition home or self-care (01) | DRG 896 ==
LOC: ED 10-28 00:42 → MEDSURG 10-28 00:56
PROVIDERS: Family Medicine; Hospitalist; Admitting Provider Internal Medicine; Emergency Provider Student in an Organized Health Care Education/Training Program; Visit Provider Internal Medicine
DX: F10.239 Alcohol dependence with withdrawal, unspecified (principal); E43 Unspecified severe protein-calorie malnutrition; J69.0 Pneumonitis due to inhalation of food and vomit; I21.A1 Myocardial infarction type 2; S22.41XA Multiple fractures of ribs, right side, initial encounter for closed fracture; A04.72 Enterocolitis due to Clostridium difficile, not specified as recurrent; M62.82 Rhabdomyolysis; N39.0 Urinary tract infection, site not specified; R64 Cachexia; Z68.1 Body mass index [BMI] 19.9 or less, adult; F10.288 Alcohol dependence with other alcohol-induced disorder; B96.1 Klebsiella pneumoniae [K. pneumoniae] as the cause of diseases classified elsewhere; K70.0 Alcoholic fatty liver; E83.42 Hypomagnesemia; E87.6 Hypokalemia; R00.0 Tachycardia, unspecified; D75.89 Other specified diseases of blood and blood-forming organs; S00.212A Abrasion of left eyelid and periocular area, initial encounter; W18.12XA Fall from or off toilet with subsequent striking against object, initial encounter; Y92.002 Bathroom of unspecified non-institutional (private) residence as the place of occurrence of the external cause; R55 Syncope and collapse; R53.1 Weakness; D53.9 Nutritional anemia, unspecified; R94.6 Abnormal results of thyroid function studies; F17.210 Nicotine dependence, cigarettes, uncomplicated; I10 Essential (primary) hypertension; J44.9 Chronic obstructive pulmonary disease, unspecified
CPT/HCPCS: 36415; 70450; 70486; 71045; 71275; 72125; 76705; 80048; 80053; 80069; 80076; 80306; 81001; 82330; 82550; 82565; 82607; 82746; 82803; 82977; 83540; 83550; 83605; 83690; 83735; 83880; 84100; 84132; 84145; 84425; 84443; 84484; 85025; 85027; 85610; 86140; 87040; 87045; 87046; 87070; 87077; 87086; 87186; 87427; 87493; 87631; 93005; 93306; 94761; 97110; 97112; 97116; 97161; 97165; 97530; 97535; 99284; 99291; A9270; J0610; J0696; J1650; J2060; J2560; J3411; J3475; J3480; J7030; J7050; J7120; J7307; Q9967; S4990

== ENCOUNTER 2023-12-22 11:06 | Outpatient (CLI) | payer MEDICAID, SELFPAY ==
--- OUTSIDE RECORDS SUMMARY | 2023-12-23 12:06 | XMS_ITS | Clinical Summary ---
Author Name Unknown Organization [id number] Address [place], [place] [address] Care Team Providers Care Information Systems Security Specialist Name Role Phone [facility] Unavailable Alexi Keating RN Unavailable Kim Gallo MD Unavailable [phone] Stefan Cruz DO Primary Care Provider Allergies [...] type, unspecified whether angina present, unspecified whether dry creek or transplanted heart Take 1 Tablet (20 mg) by mouth at bedtime. 90 Tablet 1 01/31/2023 Active potassium chloride (KLOR-CON M20) 20 mEq Extended-Release tabletIndications:Hyp okalemia Take 2 Tablets (40 mEq) by mouth two times daily with meals. 360 Tablet 1 01/31/2023 Active nitroglycerin (NITROSTAT) 0.4 mg sublingual tabletIndications:Cor onary artery disease, unspecified vessel or lesion type, unspecified whether angina present, unspecified whether dry creek or transplanted heart Place 1-2 Tablets (0.4-0.8 [...] type, unspecified whether angina present, unspecified whether dry creek or transplanted heart TAKE 1/2 TABLET(12.5 MG) [...] Type Department Care Team Description 12/19/2023 Telephone [facility] [address] [place] [address] Kim Gallo MD Late Cancel Appointment 12/18/2023 Telephone [facility] [address] [place] [address] Kim Gallo MD Appointment (Cancel appointment ) 12/11/2023 Telephone [facility] [address] [place] [address] Kim Gallo MD Appointment 12/02/2023 Telephone [facility] [address] [place] [address] Kim Gallo MD 10/28/2023 6:00 PM BASS SINGER Orders Only [facility] & [address] [address] 2 scans: (2-Ord) ECHO TTE COMPLETE WO CONTRAST ([id number]) 10/28/2023 Travel 10/13/2023 Refill [facility] [address] [place] [address] Stefan Cruz, Refill Request (Metoprolol Tartrate) 10/13/2023 Refill [facility] [address] [place] [address] Stefan Cruz, Refill Request (Metoprolol Tartrate) from [...] st Contact Info) Description 12/26/2023 9:20 AM BASS SINGER Preop Visit [facility] [address] [place] [address] Stefan Cruz DO [address] [place] [address] 01/02/2024 7:00 AM BASS SINGER Hospital Encounter [facility] [address] [place] [address] Kim Gallo MD [address] [place] [address] 01/02/2024 7:00 AM BASS SINGER - 01/02/2024 11:33 AM BASS SINGER Surgery [facility] [address] [place] [address] Kim Gallo MD [address] [place], [place] [address] ROBOTIC ASSISTED COLECTOMY RIGHT XI Scheduled Procedures Name Priority Associated Diagnoses Date/Ti me ROBOTIC ASSISTED COLECTOMY R IGHT XI Elective Colorectal Cancer 01/02/2024 7:00 AM BASS SINGER Health Maintenance Due Date Last Done Comments [...] COMPLETE WO CONTRAST Routine 10/28/2023 7:43 PM BASS SINGER Elevated troponin Syncope Cardiomyopathy (HC) from Last 3 Months Results * ECHO TTE COMPLETE WO CONTRAST (10/28/2023 7:43 PM BASS SINGER) AORTIC VALVE MEAN PG 3 mmHg EJECTION FRACTION 60 % PEAK TR VELOCITY 2.8 m/s LVEDD 4.4 cm EJECTION FRACTION 60 - 65% Anatomical Region Laterality Modality Ultrasound 10/28/2023 5:35 PM BASS SINGER Narrative 10/29/2023 6:36 AM BASS SINGER ECHOCARDIOGRAM SIMONA VELÁZQUEZ ? Accession#: ?? [id number] : ?1960 62 years Study Date: ?? 10/28/2023 5:35:07 PM Gender: F ?BP: ? 114/86 mmHg Height: 173.00 cm ?BSA: ?1.64 m? ? ? Weight: 54.00 kg ? Tech: ? MTS ? Referring MD: JUNIOR GARVEY Site: ? [facility] Reading Location: [facility] Patient Location: Inpatient. Procedure: 2D, Color [...] . This study was interpreted by an [facility] accredited facility. CC: HIM (med records) [facility] - [facility]. ??Final ?? Procedure Note Dipesh Meehan MD - 10/29/2023 ECHOCARDIOGRAM SIMONA VELÁZQUEZ : 1960 62 years Study Date: 10/28/2023 5:35:07 PM Gender: F BP: 114/86 mmHg Height: 173.00 cm BSA: 1.64 m? ? ? Weight: 54.00 kg Tech: [facility] Referring MD: JUNIOR GARVEY Site: [facility] Reading Location: [facility] Patient Location: Inpatient. Procedure: 2D, Color [...] . This study was interpreted by an [facility] accredited facility. CC: HIM (med records) [facility], Med[facility]Surg - IP [facility]. Final Junior Garvey MD ECHO ORD [...] Preferences, Provider to review later Care Teams Information Systems Security Specialist Relationship Specialty Start Date End Date Stefan Cruz DO [address] [place] [address] PCP - General Family Practice 12/10/[address] [address] 07/16/23 Alexi Keating, RN [address] [address] Nurse Navigator - Oncology Registered Nurse 10/08/23 Kim Gallo [facility] [address] [address] [place] [address] Surgery - Colon and Rectal 10/08/23
== END 2023-12-22 11:07 | disposition home or self-care (01) ==
LOC: AMB 12-23 12:05
PROVIDERS: Visit Provider Family Medicine
DX: R19.7 Diarrhea, unspecified (principal); R11.10 Vomiting, unspecified
CPT/HCPCS: A0425; A0427

== ENCOUNTER 2023-12-22 11:42 | Inpatient (IN) | payer MEDICAID, SELFPAY ==
[2023-12-22] VITALS (33 sets, daily range): BP systolic 113–151; BP diastolic 75–114; PULSE 73–125; RESP 18; TEMP 36.1–36.9; O2SAT 92–100; BMI 20.4; BMI 17.3
--- NOTE | 2023-12-22 12:15 | ED.GENADULT ---
HPI - General Adult General Date Seen: 12/22/23 Chief complaint: Alcohol/Intoxication Stated complaint: ETOH Time Seen by Provider: 12/22/23 12:00 History of Present Illness HPI narrative: This is a 63-year-old female brought to the ER today by EMS. Apparently her son came to visit her today and found her weaker than usual and she seemed drunk. She apparently has a history of life-threatening electrolyte imbalances in the past so son called EMS. She was placed on a transport hold. Breath based alcohol testing was 0.28, although the patient denies recent alcohol. She has bruising from falls around the home, which she says happened 2 days ago. Son also feels like she has the C diff smell. Has C diff in October. She has had diarrhea and vomiting for 2 days. Medical record review: Was admitted here in [facility] 10/28- 11/07/23 she had hypokalemia, hypomagnesemia, rhabdomyolysis Potassium on admission was 2.1. Most recent labs on 11/02 showed sodium 139, potassium of 3.9, chloride 107, bicarb 29, BUN 7, creatinine 0.4. positive for C diff. Received 10 days of vancomycin. Elevated troponin, likely a type 2 NSTEMI due to demand ischemia. She had macrocytic anemia, suspect likely related to vitamin deficiency in the setting of alcohol abuse. B12 and folate levels normal. Hemoglobin was 9.5 on admission, after IV hydration down to 8.8 on 11/02-discharge. Elevated TSH. She had a UTI with Klebsiella. Received 7 days of Rocephin. Patient was [place] [facility]. They attempted paperwork for commitment because of her alcohol use, but commitment was rejected by the county. the patient is not a reliable historian. I think she is significantly minimizing her drinking. Many of her statements intrinsically contradict other statements she makes. Patient initially denies any alcohol consumption at all. When I discussed with the patient that she did have a positive Breathalyzer test, she does then admit that she was drinking a little today because today is her birthday. She says that she really has not been drinking much since she was discharged from the hospital, but she really cannot or will not quantify how much not much drinking really means. She does endorse that she had a fall a few days ago but does not know when she fell. She has a scrape on her left elbow and a scrape on her left knee. She denies any other injuries but on exam I discover that she has some bruising on her right lower quadrant and right ASIS. She seems surprised to discover the bruising. She does think she might have hit her head when she fell. She says she does not have a headache. She also says she has been having copious liquidy and mucousy diarrhea for the past 2 days or so and also repetitive watery/ mucousy vomiting. No blood in her vomit or her stool. However she also says she was drinking today because it was her birthday. When asked her how she could keep the alcoholic beverages down with all the vomiting, she then changes her story and says that she is actually feeling a little bit better today. I believe that she has been vomiting but it is difficult to really assess Accurate timing, duration, and intensity of those symptoms. She is not having any abdominal pain. She denies chest pain. She says she needs to urinate but has not been having any other trouble urinating lately. When asked about medications, she does not know what med she is on. Son says he came to check on her today. Apparently her apartment was in the significant disarray. There was feces on the floor, on the wall, and on the furniture. She was seemingly intoxicated, not able to walk under her own power. Related Data Home Medications Medication Instructions Recorded Confirmed aspirin 81 mg tablet,delayed 81 mg PO DAILY 10/27/23 10/28/23 release dronabinol 2.5 mg capsule 2.5 mg PO BID 10/27/23 10/27/23 losartan 25 mg tablet 25 mg PO DAILY 10/27/23 10/27/23 magnesium oxide 400 mg (241.3 mg 800 mg PO BID 10/27/23 10/28/23 magnesium) tablet nitroglycerin 0.4 mg sublingual 0.4 - 0.8 mg sublingual Q5M angina 10/27/23 10/27/23 tablet pantoprazole 40 mg tablet,delayed 40 mg PO DAILY 10/27/23 10/27/23 release rosuvastatin 20 mg tablet 20 mg PO QPM 10/27/23 10/27/23 sertraline 50 mg tablet 50 mg PO DAILY 10/27/23 10/27/23 albuterol sulfate 90 mcg/actuation 2 inh inhalation Q6H PRN 10/28/23 10/28/23 aerosol inhaler (Ventolin HFA) loperamide 2 mg capsule (Imodium 2 mg PO Q6H PRN 10/28/23 10/28/23 A-D) polyethylene glycol 3350 17 17 g PO BID 10/28/23 10/28/23 gram/dose oral powder (ClearLax) Previous Rx's Medication Instructions Recorded metoprolol tartrate 25 mg tablet 50 mg (2 x 25 mg) PO BID #120 tabs 11/07/23 nicotine 14 mg/24 hr daily 1 patch topical Q24H #15 ea 11/07/23 transdermal patch potassium chloride 20 mEq 40 meq (2 x 20 mEq) PO BID #120 11/07/23 tablet,extended release tabs vitamin B complex-folic acid 0.4 1 tab PO DAILY #90 tabs 11/07/23 mg tablet Allergies Allergy/AdvReac Type Severity Reaction Status Date / Time Penicillins Allergy Verified 12/22/23 15:43 [facility] Medical History (Updated 12/25/23 @ 17:08 by Astrid Valentino MD) Elevated TSH ?R79.89 - Other specified abnormal findings of blood chemistry (ICD-10) Macrocytic anemia ?D53.9 - Nutritional anemia, unspecified (ICD-10) Macrocytosis ?D75.89 - Other specified diseases of blood and blood-forming organs (ICD-10) Syncope ?R55 - Syncope and collapse (ICD-10) Social History (Updated 12/22/23 @ 19:08 by Dipesh Larkin MD) What is your current living situation?: I presently have a place to live Problems where you live: no known problems Problems where you live details: N/A In the past 12 months, utilities in danger of being shut off: no In past 12 months, lack of transportation kept you from medical appts, meetings, work, or getting things needed for daily living: no In the past 12 mos, have been you worried that your food would run out before you had money to buy more?: never true In the past 12 mos, the food you bought just didn't last and you didn't have money to buy more?: never true Highest level of school completed/degree received: Associate degree: occupational, technical, vocational program Smoking Status: Former smoker What tobacco products do you use: cigarettes Smoking packs per day: 0.25 Smoking cigarettes per day: 5.0 Years smoked: 20 Smoking pack-years: 5.00 Smoking quit date/years: <= 15 years ago Do you use any of these nicotine containing products: None Second hand tobacco smoke exposure: No How often do you have a drink containing alcohol: 2-4 times a month Alcohol type: hard liquor Alcohol type details: Rum and coke How many standard drinks containing alcohol do you have on a typical day: 1 or 2 How often do you have six or more drinks on one occasion: Never AUDIT-C Alcohol total score: 2 Non-prescribed substance use: denies use Caffeine: Yes (tea) How often does anyone, including family, friends and others, physically hurt you: never How often does anyone, including family, friends and others, insult or talk down to you: never How often does anyone, including family, friends and others, threaten you with harm: never How often does anyone, including family, friends and others, scream or curse at you: never service: No Exam Narrative: Exam Narrative: Constitutional: Appears well-developed and well-nourished. Alert. Conversant. Non toxic. HENT: Head: No depressed skull fracture, Raccoon Eyes, Rodriguez's sign, or hemotympanum. Face normal. TMs normal. Nose: Nose normal. Mouth/Throat: Oral mucosa is clear and moist. no trismus. Pharynx normal. Tonsils symmetric. No tonsillar enlargement, erythema, or exudate. Eyes: Left periorbital ecchymosis. No exophthalmos or enophthalmos. Conjunctivae normal. EOM normal. Pupils equal, round, and reactive to light. No scleral icterus. Neck: Normal range of motion. Neck supple. No tracheal deviation present. Cardiovascular: Normal rate, regular rhythm. No gallop. No friction rub. No murmur heard. Symmetric radial artery pulses Pulmonary/Chest: Effort normal. No stridor. No respiratory distress. No wheezes. No rales. No rhonchi . No tenderness. Abdominal: Soft. Bowel sounds normal. No distension. No mass. No tenderness. No rebound. No guarding. Bruising and abrasion on right lower quadrant and right anterior superior iliac spine. Musculoskeletal: RUE: Normal range of motion. No tenderness. No deformity LUE: Healing abrasion on left lateral elbow. No bony deformity or tenderness Normal range of motion. No tenderness. No deformity RLE: Normal range of motion. No edema. No tenderness. No deformity LLE: Healing subacute abrasion on left anterior knee. No purulent drainage or surrounding erythema. Subtle ecchymosis on the knee. Normal Normal range of motion in her hip, knee, ankle No edema. No tenderness. No deformity Neurological: Alert and oriented to person, place, but not date. A little bit slow with her speech but not slurred. Does seem to be intoxicated with alcohol. Is perseverating about wanting to go home.. Normal strength. CN II-VII intact. No sensory deficit. GCS eye subscore is 4. GCS verbal subscore is 5. GCS motor subscore is 6. Normal coordination Skin: Skin is warm and dry. No rash noted. No pallor. Normal capillary refill. Psychiatric: Flat affect. Slow speech. Seems intoxicated with alcohol.. Const: Vital Signs, click to edit/add: Vital Signs - 24 hr 12/22/23 11:52 12/22/23 11:56 12/22/23 12:00 Temperature 97.3 F L Pulse Rate 109 H 102 H Pulse Rate [Pulse Oximeter] 97 Respiratory Rate 18 Blood Pressure Blood Pressure [Ri ght Upper Arm] 143/114 H Pulse Oximetry 98 97 97 [facility] 12/22/23 12:55 12/22/23 12:56 12/22/23 13:00 Temperature Pulse Rate 99 104 H 103 H Pulse Rate [Pulse Oximeter] Respiratory Rate Blood Pressure 130/86 Blood Pressure [Ri ght Upper Arm] Pulse Oximetry 95 97 94 Oxygen Delivery Tx thod 12/22/23 13:28 12/22/23 13:30 12/22/23 13:45 Temperature Pulse Rate 106 H 101 H 77 Pulse Rate [Pulse Oximeter] Respiratory Rate Blood Pressure Blood Pressure [Ri ght Upper Arm] Pulse Oximetry 95 98 96 Oxygen Delivery Tx thod 12/22/23 14:00 12/22/23 14:12 12/22/23 14:15 Temperature Pulse Rate 88 79 Pulse Rate [Pulse Oximeter] Respiratory Rate 18 Blood Pressure 127/92 H Blood Pressure [Ri ght Upper Arm] Pulse Oximetry 100 96 96 Oxygen Delivery Me thod Room Air 12/22/23 14:15 12/22/23 14:30 12/22/23 14:45 Temperature Pulse Rate 79 84 88 Pulse Rate [Pulse Oximeter] Respiratory Rate Blood Pressure Blood Pressure [Ri ght Upper Arm] Pulse Oximetry 95 97 96 Oxygen Delivery Me thod 12/22/23 15:11 12/22/23 15:12 12/22/23 15:15 Temperature Pulse Rate 87 84 83 Pulse Rate [Pulse Oximeter] Respiratory Rate Blood Pressure 121/85 Blood Pressure [Ri ght Upper Arm] Pulse Oximetry 95 97 95 Oxygen Delivery Me thod 12/22/23 15:50 12/22/23 15:51 12/22/23 16:00 Temperature Pulse Rate 86 81 73 Pulse Rate [Pulse Oximeter] Respiratory Rate Blood Pressure 151/99 H Blood Pressure [Ri ght Upper Arm] Pulse Oximetry 95 96 98 Oxygen Delivery Me thod 12/22/23 16:02 12/22/23 16:15 12/22/23 16:30 Temperature Pulse Rate 99 80 85 Pulse Rate [Pulse Oximeter] Respiratory Rate Blood Pressure 142/98 H Blood Pressure [Ri ght Upper Arm] Pulse Oximetry 97 97 96 Oxygen Delivery Me thod 12/22/23 16:31 12/22/23 16:45 12/22/23 17:00 Temperature Pulse Rate 82 84 81 Pulse Rate [Pulse Oximeter] Respiratory Rate Blood Pressure 125/91 H Blood Pressure [Ri ght Upper Arm] Pulse Oximetry 98 94 97 Oxygen Delivery Me thod 12/22/23 17:02 12/22/23 17:20 Temperature Pulse Rate 81 82 Pulse Rate [Pulse Oximeter] Respiratory Rate Blood Pressure 130/88 Blood Pressure [Ri ght Upper Arm] Pulse Oximetry 96 96 Oxygen Delivery Me thod Course Course ED Course: Recheck-1400. Feeling a bit more anxious. Ativan ordered for possible evolving withdrawal. Recheck-discussed with patient's son, Ranjit, on speaker phone with the patient's phone. We had a 3 way conversation between myself and the patient in the room, and her son by phone. Patient is still repetitively requesting to go home. I advised the patient that she is not safe to go home given her level of intoxication. She does not have medical decision-making capacity at this time. She also is not safe to go home because she has dangerously low hypokalemia, hypomagnesemia. Will require hospitalization to replete her electrolytes and for further monitoring and stabilization. She also needs further workup for injuries. Also needs stool testing for possible recurrent C diff. she is also at risk for evolving alcohol withdrawal. Her son is in full agreement that she needs hospitalization today. Vital Signs Vital signs: Initial Vital Signs Pulse Rate 109 H 12/22/23 11:52 Pulse Oximetry 98 12/22/23 11:52 Vital Signs Pulse Rate 109 H 12/22/23 11:52 Pulse Oximetry 98 12/22/23 11:52 Temperature 97.4 F L 12/25/23 23:12 Pulse Rate 74 12/25/23 23:12 Respiratory Rate 18 12/26/23 03:17 Blood Pressure 133/90 H 12/25/23 23:12 Pulse Oximetry 96 12/25/23 23:12 Oxygen Delivery Method Room Air 12/25/23 23:12 Medications Administered Medications: Generic Name Dose Route Start Last Admin Trade Name Freq PRN Reason Stop Dose Admin Acetaminophen 650 mg 12/24/23 18:23 12/25/23 19:30 Acetaminophen 325 Mg Tablet PO 650 mg Q6H PRN Administration Aspirin 81 mg 12/23/23 09:00 12/25/23 09:05 Aspirin 81 Mg Tablet Ec PO 81 mg DAILY ISRAEL Administration Enoxaparin Sodium 30 mg 12/22/23 18:00 12/25/23 17:44 Enoxaparin 30 Mg/0.3ml Inj SUBCUT 30 mg Q24H ISRAEL Administration Folic Acid 1 mg 12/23/23 09:00 12/25/23 09:05 Folic Acid 1 Mg Tablet PO 1 mg DAILY IS[place]EL Administration Gabapentin 300 mg 12/23/23 21:00 12/25/23 21:05 Gabapentin 300 Mg Capsule PO 300 mg HS ISRAEL Administration Lorazepam 1 mg 12/22/23 14:23 12/22/23 14:45 Lorazepam 2 Mg/Ml Inj IVP 1 mg Q1H PRN Administration Losartan Potassium 25 mg 12/23/23 09:00 12/25/23 09:05 Losartan Potassium 50 Mg Tablet PO 25 mg DAILY IS[place] Administration Magnesium Oxide 800 mg 12/23/23 09:00 12/25/23 21:10 Magnesium Oxide 400 Mg Tablet PO Not Given BID IS[place]EL Metoprolol Tartrate 50 mg 12/22/23 21:00 12/25/23 21:07 Metoprolol Tartrate 25 Mg Tablet PO 50 mg BID [place] Administration Multivitamins/Minerals 1 tab 12/23/23 09:00 12/25/23 09:04 Multivitamin/Minerals 1 Tablet PO 1 tab DAILY IS[place] Administration Nicotine 1 patch 12/24/23 14:30 12/25/23 14:07 Nicotine 14 Mg Patch TOPICAL 1 patch Q24H IS[place]EL Administration Dronabinol 2.5 Mg 2.5 mg 12/22/23 21:00 12/25/23 21:08 Capsule PO Not Given BID IS[place]EL Omeprazole 40 mg 12/23/23 09:00 12/25/23 09:06 [address]epraz[address] PO 40 mg DAILY IS[place]EL Administration Potassium Chloride 40 meq 12/23/23 09:00 12/25/23 21:07 Potassium Chloride 10 Meq Capsule Er PO 40 meq BID IS[place] Administration Potassium Phosphate 250 mg 12/24/23 13:00 12/25/23 21:07 Potassium Phos/Sodium Phos 250 Mg Tablet PO 250 mg QID [place] Administration Rosuvastatin Calcium 20 mg 12/23/23 18:00 12/25/23 17:44 Rosuvastatin Calcium 10 Mg Tablet PO 20 mg QPM [place] Administration Sertraline HCl 50 mg 12/23/23 09:00 12/25/23 09:04 Sertraline 50 Mg Tablet PO 50 mg DAILY [place] Administration Sodium Chloride 5 ml 12/22/23 18:00 12/22/23 19:11 Sodium Chloride 0.9 % (Flush) 10 Ml Syringe IVF 5 ml .FLUSH PRN Administration Sodium Chloride 5 ml 12/22/23 21:00 12/25/23 21:08 Sodium Chloride 0.9 % (Flush) 10 Ml Syringe IVF 5 ml BID IS[place] Administration Thiamine HCl 100 mg 12/25/23 09:00 12/25/23 09:04 Thiamine 100 Mg Tablet PO 100 mg DAILY [place] Administration Vancomycin HCl 125 mg 12/22/23 21:00 12/25/23 21:07 Vancomycin 125 Mg Capsule PO 125 mg QID [place] Administration Vitamin B Complex/Folic Acid 1 tab 12/23/23 09:00 12/25/23 09:04 Vitamin B Complex/Folic Acid Tablet PO 1 tab DAILY [place] Administration Discontinued Medications Generic Name Dose Route Start Last Admin Trade Name Freq PRN Reason Stop Dose Admin Folic Acid 1 mg 12/22/23 12:51 12/22/23 13:05 Folic Acid 1 Mg Tablet PO 12/22/23 12:52 1 mg ONCE ONE Administration Sodium Chloride 1,000 mls @ 1,000 mls/hr 12/22/23 12:35 12/22/23 14:23 0.9 % Sodium Chloride 1000 Ml IV 12/22/23 13:34 Infused .Q1H IS[place]EL Infusion Potassium Chloride 10 meq in 100 mls @ 100 mls/hr 12/22/23 14:24 12/22/23 16:16 Potassium Chloride IVPB 12/22/23 15:23 Infused ONCE ONE Infusion Magnesium Sulfate 2 gm in 50 mls @ 25 mls/hr 12/22/23 14:26 12/22/23 17:37 Magnesium Iv IVPB 12/22/23 16:25 Infused ONCE ONE Infusion Magnesium Sulfate 4 gm in 100 mls @ 25 mls/hr 12/22/23 17:48 12/23/23 01:37 Magnesium Iv IVPB 12/22/23 21:47 Infused ONCE ONE Infusion Potassium Chloride 10 meq in 100 mls @ 100 mls/hr 12/22/23 18:00 12/23/23 01:37 Potassium Chloride IVPB 12/22/23 23:29 Infused Q90M IS[place]EL Infusion Potassium Chloride/Dextrose/Sod Cl 1,000 mls @ 125 mls/hr 12/22/23 18:00 12/25/23 17:35 5 % Dex/0.45 Sod Chl+Kcl20 Meq IV Infused .Q8H IS[place]EL Infusion Thiamine HCl 250 mg/ Sodium 102.5 mls @ 102.5 mls/hr 12/22/23 21:00 12/24/23 23:22 Chloride IVPB 12/25/23 14:01 Not Given TID [place] Potassium Chloride 10 meq in 100 mls @ 100 mls/hr 12/23/23 08:00 12/25/23 07:35 Potassium Chloride IVPB 12/23/23 13:29 Not Given Q90M IS[place]EL Potassium Chloride 10 meq in 100 mls @ 100 mls/hr 12/23/23 08:00 12/23/23 16:01 Potassium Chloride IVPB 12/23/23 11:59 Infused Q90M [place] Infusion Calcium Gluconate/Sodium Chloride 1,000 mg in 50 mls @ 100 mls/hr 12/23/23 07:42 12/25/23 14:53 Calcium Gluc 1,000mg/50 Ml IVPB 12/23/23 08:11 Infused ONCE ONE Infusion Potassium Chloride 10 meq in 100 mls @ 100 mls/hr 12/23/23 13:30 12/23/23 14:30 Potassium Chloride IVPB 12/23/23 14:29 Not Given Q90M [place] Potassium Chloride/Dextrose/Sod Cl 1,000 mls @ 125 mls/hr 12/23/23 17:15 12/24/23 17:45 5 % Dex/0.9 Sod Chl+Kcl 20 Meq IV Infused .Q8H IS[place] Infusion Sodium Chloride 1,000 mls @ 1,000 mls/hr 12/23/23 17:16 12/25/23 07:35 0.9 % Sodium Chloride 1000 Ml IV 12/23/23 18:15 Infused .Q1H [place] Infusion Potassium Chloride 10 meq in 100 mls @ 100 mls/hr 12/23/23 18:45 12/23/23 23:08 Potassium Chloride IVPB 12/23/23 21:14 Infused Q90M IS[place] Infusion Sodium Chloride 500 mls @ 500 mls/hr 12/24/23 07:16 12/25/23 17:35 0.9 % Sodium Chloride 500 Ml IV 12/24/23 08:15 Infused .Q1H ONE Infusion Calcium Gluconate/Sodium Chloride 1,000 mg in 50 mls @ 100 mls/hr 12/24/23 07:17 12/25/23 14:53 Calcium Gluc 1,000mg/50 Ml IVPB 12/24/23 07:46 Infused ONCE ONE Infusion Calcium Gluconate/Sodium Chloride 1,000 mg in 50 mls @ 100 mls/hr 12/25/23 11:02 12/25/23 12:10 Calcium Gluc 1,000mg/50 Ml IVPB 12/25/23 11:31 Infused ONCE ONE Infusion Magnesium Sulfate 2 gm in 50 mls @ 150 mls/hr 12/25/23 11:03 12/25/23 13:11 Magnesium Iv IVPB 12/25/23 11:22 Infused ONCE ONE Infusion Nicotine 1 patch 12/22/23 19:30 12/25/23 07:35 Nicotine 14 Mg Patch TOPICAL Not Given Q24H IS[place]EL Pantoprazole Sodium 40 mg 12/22/23 18:00 12/22/23 19:10 Pantoprazole Sodium 40 Mg Inj IVP 12/22/23 18:01 40 mg ONCE ONE Administration Potassium Bicarbonate 25 meq 12/22/23 14:24 12/22/23 14:45 Potassium Bicarb 25 Meq Effervescent Tab PO 12/22/23 14:25 25 meq ONCE ONE Administration Potassium Bicarbonate 50 meq 12/23/23 07:41 12/23/23 08:36 Potassium Bicarb 25 Meq Effervescent Tab PO 12/23/23 07:42 50 meq ONCE ONE Administration Potassium Bicarbonate 25 meq 12/23/23 22:12 12/23/23 23:06 Potassium Bicarb 25 Meq Effervescent Tab PO 12/23/23 22:13 25 meq ONCE ONE Administration Potassium Bicarbonate 25 meq 12/24/23 08:00 12/24/23 17:45 Potassium Bicarb 25 Meq Effervescent Tab PO 25 meq BIDWM [place] Administration Thiamine HCl 100 mg 12/22/23 12:51 12/22/23 13:05 Thiamine 100 Mg Tablet PO 12/22/23 12:52 100 mg ONCE ONE Administration Medical Decision Making MDM Narrative Medical decision making narrative: 63-year-old female with a complex presentation. She had a complex protracted hospitalization last month related to alcohol abuse, hyponatremia, UTI, C diff colitis. There is also concern that she has a vulnerable adult and not able to care for herself home. She was brought to the ER today by EMS from home after her son came to check on her and found her intoxicated, too weak to walk, with a disheveled department, and feces all over the place. 1. Alcohol abuse. Patient has a history of alcoholism. She is clinically intoxicated with alcohol and exam. Blood alcohol level 0.37 today. The I think the patient is unreliable but she says she was just drinking today ?because it is her birthday. ?. She says she just wants to go home. She is not interested in alcohol cessation. At this point she is mildly anxious and agitated but not otherwise tachycardic or tremulous. Ativan 1 mg IV administered for anxiety but no clear alcohol withdrawal yet. Would be at high risk for developing alcohol withdrawal syndrome. Thiamine and folate administered. 2. Electrolyte/renal. Kidney function normal. Patient does have profound hypokalemia. Hypomagnesemia. Potassium and magnesium supplementation initiated here in the ER. Fortunately EKG does not show prolonged QT. There are nonspecific changes including T-wave inversions in the anterolateral leads. Kidney function normal. CK minimally elevated but no evidence for rhabdo at this time. IV fluids ordered. 3. GI. Patient has recent C diff colitis treated with 10 day course of vancomycin orally in the hospital last month. She has had 2 days of recurrent repetitive diarrhea at home. Unclear exactly how many days the diarrhea has been going on but son confirms that there was significant feces on the patient and around the house. CT scan does show colitis. I have ordered repeat stool C diff testing. No evidence for toxic megacolon or perforation or other surgical emergency at this time. No report of any black or bloody diarrhea the suggest GI bleed. 4. Trauma. Patient does report recent falls. She has evidence of injury including bruising around her left orbit, left elbow abrasion, left knee abrasion, right ASIS bruising. Head CT is obtained and is negative. C-spine CT is obtained and is negative. She is not having any chest pain or tenderness. She is mildly tender in the lower abdomen. CT abdomen pelvis is obtained and is fortunately negative for any pelvic or hip fracture or internal bleeding. Surprisingly CT scan does show multiple rib fractures. No evidence for hemo or pneumothorax in the lower lungs based on the CT. 5. Social. Patient is clearly intoxicated with alcohol and does not have medical decision-making capacity at this time. She was requesting to go home multiple times and perseverating on that. However it is clear that it is not safe for her to discharge home with this level intoxication as well as with the reported state of her home and multiple falls. We contacted her son, Ranjit, on her speaker phone and he agrees. During her recent hospitalization the hospitalist did file a petition to make the patient aware to the County but were refused. Lab Data Labs: Lab Results 12/22/23 Range/Units 13:00 WBC 5.61 (4.50-11.00) K/uL RBC 3.26 L (4.00-5.20) m/uL Hgb 11.9 L (12.0-16.0) gm/dL Hct 33.9 (33.0-51.0) % MCV 104 H (80-100) fL MCH 37 H (26-34) pg MCHC 35 (32-36) gm/dL RDW Coeff of Katina 12.1 (11.5-15.5) % Plt Count 170 (140-440) K/uL Neut % (Auto) 59.8 (42.0-72.0) % Lymph % (Auto) 33.0 (20-44) % [place] % (Auto) 6.1 (0.0-11.0) % Eos % (Auto) 0.2 (0.0-7.0) % Baso % (Auto) 0.5 (0.0-3.0) % Neut # (Auto) 3.36 (1.7-7.0) K/uL Lymph # (Auto) 1.85 (0.90-2.90) K/uL [place] # (Auto) 0.30 (0.00-0.90) K/UL Eos # (Auto) 0.01 (0.00-0.50) K/uL Baso # (Auto) 0.03 (0.00-0.30) K/uL Abs Immat Gran (auto) 0.02 (0.00-0.30) K/uL Imm/Tot Granulo (auto) 0.4 % INR 0.87 L (0.91-1.10) VBG pH 7.501 H (7.32-7.43) VBG pCO2 36 L (40-50) mmHG VBG pO2 51.8 H (25-47) mmHG VBG HCO3 28 (21-28) mmol/L Sodium 140 (135-149) mmol/L Potassium 2.2 L* (3.6-5.1) mmol/L Chloride 93 L (96-114) mmol/L Carbon Dioxide 27 (20-32) mmol/L Anion Gap 20 H (7-15) mEq/L BUN 7 (7-30) mg/dL Creatinine 0.5 (0.5-1.5) mg/dL Estimated Creat Clear 47.42 Estimated GFR 105 ml/min Glucose 81 (60-115) mg/dL Lactate 2.5 H (0.5-1.9) mmol/L Calcium 7.8 L (8.4-10.6) mg/dL Magnesium 1.2 L (1.5-2.6) mg/dL Total Bilirubin 1.5 (0.1-1.5) mg/dL AST 220 H (12-35) U/L ALT 113 H (4-35) U/L Alkaline Phosphatase 117 (40-150) U/L Total Creatine Kinase 153 H (41-117) U/L Troponin I 0.04 (0.01-0.04) ng/mL C-Reactive Protein < 0.5 L (0.5-1.0) mg/dL Total Protein 7.8 (6.0-8.3) g/dL Albumin 4.5 (3.3-5.0) g/dL Lipase 145 (23-300) U/L Procalcitonin 0.15 (<0.50) ng/mL Ethyl Alcohol 0.37 H* (0.01-0.03) % Imaging Data CT scan - abdomen: Attestation: I have reviewed the pertinent imaging results. Radiologist's impression: Impression : 1. Edema involving the rectosigmoid colon and the left colon most likely secondary to nonspecific colitis. 2. Diffuse severe fatty infiltration of the liver. 3. Multiple nondisplaced fractures ribcage bilateral without any evidence of pneumothorax. CT scan - head: Attestation: I have reviewed the pertinent imaging results. Radiologist's impression: IMPRESSION: No acute intracranial process per unenhanced head CT. CT C spine: Attestation: I have reviewed the pertinent imaging results. Radiologist's impression: IMPRESSION: No acute fracture. ECG Data Attestation: I personally reviewed and interpreted this ECG as follows: Interpretation: Sinus tachycardia. Rate 104. VA One hundred seventy-four QRS axis normal axis. No pathologic Q-waves. ST segment/T wave: No ST segment elevation or depression. New T-wave inversions in V 3-V6 which are new compared to 10/28/2023. Also T-wave inversions in AVF. QTc: 499 Discharge Plan Discharge Clinical Impression: Alcohol intoxication in active alcoholic, Hypomagnesemia, Acute hypokalemia, Colitis, Multiple rib fractures, Falls frequently Patient Disposition: Admitted As Observation
--- NOTE | 2023-12-22 12:32 | CRLHL7_ITS ---
For Patients: As a result of the Century Cures Act, medical imaging exams and procedure reports are released immediately into your electronic medical record. You may view this report before your referring provider. If you have questions, please contact your health care provider. INDICATION: .CONFUSION, FALLS, NECKPAIN, RLQ BRUISING, DIARRHEA TECHNIQUE: Head CT without contrast. COMPARISON: October and June 2023. FINDINGS: Periventricular areas of low attenuation, likely due to chronic small vessel ischemic changes. Generalized volume loss. Atherosclerosis. No intracranial hemorrhage. No discrete mass or mass effect. There is no midline shift. The basilar cisterns are patent. No hydrocephalus. The sen-white matter interface is otherwise preserved. No acute osseous abnormality. No extracalvarial soft tissue abnormality. The mastoid air cells are clear. Partial opacification of the right maxillary sinus and frontoethmoidal recess. The visualized portions of the orbits and globes are unremarkable. IMPRESSION: No acute intracranial process per unenhanced head CT. Please note that all CT scans at this facility use dose modulation, iterative reconstruction, and/or weight-based dosing when appropriate to reduce radiation dose to as low as reasonably achievable. Dictated by Rambo Sam MD @ 12/22/2023 4:37:58 PM (Electronically Signed)
--- NOTE | 2023-12-22 12:32 | CRLHL7_ITS ---
For Patients: As a result of the Century Cures Act, medical imaging exams and procedure reports are released immediately into your electronic medical record. You may view this report before your referring provider. If you have questions, please contact your health care provider. INDICATION: .CONFUSION, FALLS, NECKPAIN, RLQ BRUISING, DIARRHEA TECHNIQUE: CT cervical spine without contrast. COMPARISON: October 2023. FINDINGS: No acute fracture. Reversal of the normal cervical lordosis. Bony mineralization is age appropriate. No prevertebral soft tissue hematoma or swelling. No soft tissue abnormality is identified. Multilevel cervical spondylosis. No pathologically enlarged lymph nodes. Thyroid is normal. Lung apices are clear. IMPRESSION: No acute fracture. Please note that all CT scans at this facility use dose modulation, iterative reconstruction, and/or weight-based dosing when appropriate to reduce radiation dose to as low as reasonably achievable. Dictated by Rambo Sam MD @ 12/22/2023 4:41:02 PM (Electronically Signed)
--- NOTE | 2023-12-22 12:32 | CRLHL7_ITS ---
For Patients: As a result of the Century Cures Act, medical imaging exams and procedure reports are released immediately into your electronic medical record. You may view this report before your referring provider. If you have questions, please contact your health care provider. INDICATION: Multiple falls; neck pain; right lower quadrant bruising; diarrhea; confusion. COMPARISON: CT chest, abdomen and pelvis December 20, 2022. TECHNIQUE: CT abdomen and pelvis with intravenous contrast; coronal and sagittal reformats. FINDINGS: No pneumothorax or pleural effusion. Patchy areas of alveolar consolidation right lower lobe. Multiple nondisplaced fractures ribcage bilateral. Diffuse severe fatty infiltration of the liver. No focal hepatic or splenic pathology. No pancreatic pathology. Gallbladder is unremarkable. No adrenal pathology. No kidney stones or obstructive uropathy. No retroperitoneal lymphadenopathy. No evidence of abdominal or pelvic ascites. Possible edema involving the rectosigmoid and the left colon; the exact nature and clinical significance unclear; this may represent nonspecific colitis. No pneumoperitoneum or intestinal obstruction. Impression : 1. Edema involving the rectosigmoid colon and the left colon most likely secondary to nonspecific colitis. 2. Diffuse severe fatty infiltration of the liver. 3. Multiple nondisplaced fractures ribcage bilateral without any evidence of pneumothorax. Please note that all CT scans at this facility use dose modulation, iterative reconstruction, and/or weight-based dosing when appropriate to reduce radiation dose to as low as reasonably achievable. Dictated by Noy Churchill MD @ 12/22/2023 4:35:35 PM (Electronically Signed)
[2023-12-22] MEDS: FOLIC ACID 1 MG TABLET PO (13:05)
[2023-12-22] MEDS: THIAMINE 100 MG TABLET PO (13:05)
--- OUTSIDE RECORDS SUMMARY | 2023-12-22 13:17 | XMS_ITS | Clinical Summary ---
Author Name Unknown Organization [facility] Address [place], [place] [address] Care Team Providers Care Hand Inspector Name Role Phone [facility] Unavailable Alexi Keating RN Unavailable Kim Gallo MD Unavailable [phone] Stefan Cruz DO Primary Care Provider Allergies Active Allergy Reactions Criticality Noted Date Comments Penicillins *Unknown 08/04/2022 Tolerated pip/tazo 07/2022 Medications Medication Sig Dispensed Refills Start Date End Date Status folic acid 1 mg tabletIndications:Alc oholic ketoacidosis Take 1 Tablet (1 mg) by mouth once daily. 30 Tablet 0 08/28/2022 Active albuterol HFA (PRO-AIR; VENTOLIN; PROVENTIL) 90 mcg/actuation inhalerIndications:Ce ntrilobular emphysema (HC) Inhale 1-2 Puffs by mouth every 4 hours if needed for Wheezing 1st choice. 0 12/28/2022 Active multivitamin chewIndications:Tobac co use Chew 1 Tablet by mouth once daily. 90 Tablet 3 01/31/2023 Active rosuvastatin (CRESTOR) 20 mg tabletIndications:Cor onary artery disease, unspecified vessel or lesion type, unspecified whether angina present, unspecified whether [place] or transplanted heart Take 1 Tablet (20 mg) by mouth at bedtime. 90 Tablet 1 01/31/2023 Active potassium chloride (KLOR-CON M20) 20 mEq Extended-Release tabletIndications:Hyp okalemia Take 2 Tablets (40 mEq) by mouth two times daily with meals. 360 Tablet 1 01/31/2023 Active nitroglycerin (NITROSTAT) 0.4 mg sublingual tabletIndications:Cor onary artery disease, unspecified vessel or lesion type, unspecified whether angina present, unspecified whether [place] or transplanted heart Place 1-2 Tablets (0.4-0.8 mg) under the tongue every 5 minutes if needed for Chest Pain. 12 Tablet 3 01/31/2023 Active budesonide-formoteroL (SYMBICORT) 80-4.5 mcg/actuation (80-4.5 mcg each actuation) inhalerIndications:Ce ntrilobular emphysema (HC) Inhale 2 Puffs by mouth two times daily. 10.2 g 0 02/04/2023 Active aspirin (ECOTRIN) 81 mg enteric coated tabletIndications:NST MARY (non-ST elevated myocardial infarction) (HC) Take 1 Tablet (81 mg) by mouth once daily with a meal. 30 Tablet 0 07/16/2023 Active losartan (COZAAR) 25 mg tabletIndications:Str ess-induced cardiomyopathy,HTN (hypertension) Take 1 Tablet (25 mg) by mouth once daily. 30 Tablet 0 07/16/2023 Active magnesium oxide (MAG-OX 400) 400 mg tabletIndications:Hyp omagnesemia Take 1 Tablet (400 mg) by mouth two times daily. 60 Tablet 0 07/16/2023 Active sertraline (ZOLOFT) 50 mg tabletIndications:MURALI (generalized anxiety disorder) Take 1 Tablet (50 mg) by mouth every morning. 30 Tablet 0 07/16/2023 Active psyllium husk, with sugar, (METAMUCIL) 3.4 gram packetIndications:Zayra rrhea, unspecified type Mix 1 Packet in liquid then take by mouth two times daily. 30 Packet 0 07/16/2023 Active pantoprazole (PROTONIX) 40 mg delayed-release tabletIndications:Alc ohol abuse,Gastritis, presence of bleeding unspecified, unspecified chronicity, unspecified gastritis type Take 1 Tablet (40 mg) by mouth once daily before a meal. 30 Tablet 0 07/16/2023 Active nicotine 14 mg/24 hr (NICODERM; HABITROL) 14 mg/24 hr patchIndications:Ciga rette nicotine dependence with nicotine-induced disorder Apply 1 Patch on dry, clean, hairless skin once daily. 30 Patch 3 09/06/2023 Active metoprolol tartrate (LOPRESSOR) 25 mg tabletIndications:Cor onary artery disease, unspecified vessel or lesion type, unspecified whether angina present, unspecified whether [place] or transplanted heart TAKE 1/2 TABLET(12.5 MG) BY MOUTH TWICE DAILY 30 Tablet 0 10/13/2023 Active Active Problems Problem Noted Date Diagnosed Date Primary adenocarcinoma of ascending colon 2022 Alcohol use disorder, severe, dependence 023 Acute respiratory failure with hypoxemia 023 Prolonged Q-T interval on ECG 01/31/2023 Severe protein-calorie malnutrition 12/29/2022 MURALI (generalized anxiety disorder) 12/25/2022 Centrilobular emphysema 12/25/2022 Severe anemia 12/23/2022 Acute respiratory failure with hypercapnia 12/23 Alcohol abuse 12/23/2022 PEA (Pulseless electrical activity) (HC) arrest 12/23/2022 Stress-induced cardiomyopathy 08/24/2022 Hypomagnesemia 08/24/2022 Alcoholic ketoacidosis 08/04/2022 Collapse 08/04/2022 Hypokalemia 08/04/2022 NSTEMI (non-ST elevated myocardial infarction) 0 08/04/2022 Pressure injury of head (face), unstageable 07/26 Overview: Present on arrival Pressure ulcers of skin of multiple topographic sites 08/04/2022 Overview: Pressure ulcers along left side and on abdomen and chest; due to laying on floor for prolonged period Multiple subsegmental pulmon yasir emboli without acute cor pulmonale 08/04/2022 Dehydration with hypernatremia 08/04/2022 Encounters Date Type Department Care Team Description 12/19/2023 Telephone [facility] [address] [place] [address] Kim Gallo MD Late Cancel Appointment 12/18/2023 Telephone [facility] [address] [place] [address] Kim Gallo MD Appointment (Cancel appointment ) 12/11/2023 Telephone [facility] [address] [place] [address] Kim Gallo MD Appointment 12/02/2023 Telephone [facility] [address] [place] [address] Kim Gallo MD 10/28/2023 6:00 PM [facility]KEM[facility] Orders Only [facility] & [address] [address] 2 scans: (2-Ord) ECHO TTE COMPLETE WO CONTRAST ([id number]) 10/28/2023 Travel 10/13/2023 Refill [facility] [address] [place] [address] Stefan Cruz, Refill Request (Metoprolol Tartrate) 10/13/2023 Refill [facility] [address] [place] [address] Stefan Cruz, Refill Request (Metoprolol Tartrate) from Last 3 Months Immunizations Name Administration Dates Next Due COVID-19 vaccine (Moderna 100mcg/0.5mL) LICO CARO 03/10/2021,02/09/2021 COVID-19 vaccine (Moderna 50 mcg/0.5mL) 12YO+ BIVALENT LICO CARO 11/09/2021 Family History Medical History Relation Name Comments Alcoholism Brother 1 Uterine cancer Daughter 1 Heart attack Maternal Grandfather Stroke Maternal Grandfather Dementia Maternal Grandmother Relation Name Status Comments Brother 1 Alive Brother 2 Alive Brother 3 Alive Daughter 1 Alive Daughter 2 Alive Father Maternal Grandfather Maternal Grandmother Mother Paternal Grandfather Paternal Grandmother Sister 1 Alive Sister 2 Alive Son Alive Social History Tobacco Use Types Packs/Day Years Used Date Smoking Tobacco: Every Day Cigarettes Smokeless Tobacco: Never Tobacco Cessation:Ready to Q uit: No; Counseling Given: Yes Comments:TIP done 12/24/22. Pt vapes and smokes. Alcohol Use Standard Drinks/Week Comments Yes 0 (1 standard drink = 0.6 oz pur e alcohol) Social Connections Answer Date Recorded Frequency of Communication with Friends and Fami ly Not on file 08/30/2022 Sex and Gender Information Value Date Recorded Sex Assigned at Not on file Gender Identity Not on file Sexual Orientation Not on file Obstetrics History Last Filed Vital Signs Vital Sign Reading Time Taken Comments Blood Pressure 178/93 09/06/2023 11:34 AM CDT Pulse 97 09/06/2023 11:34 AM CDT Temperature 36.7 ??C (98.1 ??F) 08/21/2023 3:26 PM CD T Respiratory Rate 18 09/06/2023 11:34 AM CDT Oxygen Saturation 98% 09/06/2023 11:34 AM CDT Inhaled Oxygen Concentration - - Weight 52.4 kg (115 lb 8 oz) 09/06/2023 11:34 AM CDT Height 172.7 cm (5' 8) 09/06/2023 11:34 AM CDT Body Mass Index 17.56 09/06/2023 11:34 AM CDT Plan of Treatment Upcoming Encounters Date Type Department Care Team (Late st Contact Info) Description 12/26/2023 9:20 AM [facility] Preop Visit [facility] [address] [place] [address] Stefan Cruz DO [address] [place] [address] 01/02/2024 7:00 AM [facility] Hospital Encounter [facility] [address] [place] [address] Kim Glalo MD [address] [place] [address] 01/02/2024 7:00 AM [facility] [facility] - 01/02/2024 11:33 AM [facility] Surgery [facility] [address] [place] [address] Kim Gallo MD [address] [place], [place] [id number] ROBOTIC ASSISTED COLECTOMY RIGHT XI Scheduled Procedures Name Priority Associated Diagnoses Date/Ti me ROBOTIC ASSISTED COLECTOMY R IGHT XI Elective Colorectal Cancer 01/02/2024 7:00 AM [facility] Health Maintenance Due Date Last Done Comments Pneumococcal series for age 6-64 (1 of 2 - PCV) 1966 Tdap 1971 Depression screening for age 12+ 1972 HIV for age 15-65 1975 Hepatitis C screening for age 18-79 1978 Tetanus booster 1980 Pap test for age 21-65 1981 Lipids for age 45-75 2005 Mammogram for age 45-75 2005 Zoster (shingles) series for age 50+ (1 of 2) 2010 COVID-19 vaccine series ( season) 2023 11/09/2021, 03/10/2021, 02/09/2021 Influenza for age 50-64 07/26/2023 BMI (ht and wt on same day) for age 18+ 09/06/2024 09/06/2023, 07/26/2023, 08/30/2022 Colonoscopy through age 75 07/08/2033 07/08/2023 Procedures Procedure Name Priority Date/Time Associated Diagnosis Comments ECHO TTE COMPLETE WO CONTRAST Routine 10/28/2023 7:43 PM [facility]KEMAN Elevated troponin Syncope Cardiomyopathy (HC) from Last 3 Months Results * ECHO TTE COMPLETE WO CONTRAST (10/28/2023 7:43 PM NARROW GAUGE BRAKEMAN) AORTIC VALVE MEAN PG 3 mmHg EJECTION FRACTION 60 % PEAK TR VELOCITY 2.8 m/s LVEDD 4.4 cm EJECTION FRACTION 60 - 65% Anatomical Region Laterality Modality Ultrasound 10/28/2023 5:35 PM [facility]AU[facility]KEM[facility] Narrative 10/29/2023 6:36 AM [facility] GAUGE BRAKEMAN ECHOCARDIOGRAM SIMONA VELÁZQUEZ ? Accession#: ?? [id number] : ?1960 62 years Study Date: ?? 10/28/2023 5:35:07 PM Gender: F ?BP: ? 114/86 mmHg Height: 173.00 cm ?BSA: ?1.64 m? ? ? Weight: 54.00 kg ? Tech: ? MTS ? Referring MD: JUNIOR GARVEY Site: ? [facility] Reading Location: [facility] Patient Location: Inpatient. Procedure: 2D, Color Doppler and Spectral Doppler. Indication for study: Elevated troponin; Syncope; Cardiomyopathy (HC) Cardiac Rhythm: Regular.Study quality: Imaging limitations: This study was subject to imaging limitations due to a prominent lung artifact. Final Impressions: 1. Normal LV size, normal wall thickness, normal global systolic function with an estimated EF of 60 - 65%. 2. Basal septum segment is abnormal. 3. Right ventricular cavity size is normal, global systolic RV function is normal. 4. The mitral valve is normal, mild mitral regurgitation. 5. Mild tricuspid regurgitation with an estimated RVSP of 31 mmHg plus the RA pressure. 6. IVC geometry compatible with a normal estimated RA pressure (3 mmHg). Comparison Compared to prior exam of 07/05/2023: - The left ventricular function has increased. The inferoseptal wall motion abnormality was more pronounced on the prior study. Chamber Sizes and Function Normal left ventricular size, normal wall thickness, normal global systolic function with an estimated EF of 60 - 65%. Left atrial size is normal. Right ventricular cavity size is normal, global systolic RV function is normal. RV wall thickness is normal. The right atrium is normal. Right atrial volume index is 19 ml/m? ? ?. Right atrial area is 13 cm? ? ?. The pulmonary artery is of normal size and origin. The sinus of Valsalva is normal sized. The ascending aorta is normal sized. The basal septum segment is hypokinetic. All remaining scored segments are normal. Valves, RV Pressures and Diastolic Function The aortic valve is normal in structure and trileaflet, no stenosis and no regurgitation. The mitral valve is normal in structure, mild mitral regurgitation. Normal diastolic function. The tricuspid valve is normal in structure. Tricuspid regurgitation is mild regurgitation. The tricuspid regurgitant velocity is 2.8 m/s, the estimated right ventricular systolic pressure is 31 mmHg plus right atrial pressure. The pulmonic valve is normal. Trace pulmonary regurgitation. Masses, Effusion, Shunts There is no pericardial effusion. The inferior vena cava is normal sized, respiratory size variation greater than 50%. No left to right shunting was detected by limited color flow Doppler interrogation of the interatrial septum. MEASUREMENTS AND CALCULATIONS 2-D Measurements and LV Function: LVID (d) 4.4 cm LV FS% (2D) ?? 38 % LVID (s) 2.8 cm LVOT diameter 1.9 cm IVS (d) ??0.9 cm HR ?80 bpm LVPW (d) 1.0 cm LA Vol index ??31 ml/m2 Ao Sinus 3.2 cm RA Vol index ??19 ml/m2 Asc Ao ?? 3.3 cm RA area ? 13 cm? ? ? LA ? 3.0 cm RV Max 4C (d) 3.5 cm Diastology: Mitral ?Tissue Doppler E Peak 0.7 m/s ??e', Septum ? 0.07 m/s A Peak 0.6 m/s ??e', Lateral ?0.09 m/s E/A ?1.1 ?E/e' Average ?? 8.60 DT ? 125 msec Aortic Valve: Vmax ? 1.2 m/s ??IFTIKHAR (V) ?? 1.84 cm? ? ? VTI ?0.22 m ?? IFTIKHAR (I) ?? 1.88 cm? ? ? LVOT V max 0.8 m/s ??Max PG ?6 mmHg LVOT VTI ?? 0.15 m ?? Mean PG ?? 3 mmHg SV ? 42 ml ?Dim Index 0.68 SV index ?? 26 ml/m? ? ? CO ?3.4 l/min ?CI ?2.0 l/min/m? ? ? Mitral Valve: MVA ?6.1 cm? ? ? MR TVI 1.52 m MV P 1/2 36 msec Tricuspid Valve and estimated PA pressures: TR Vmax 2.8 m/s TAPSE 1.9 cm TR maxG 31 mmHg Pulmonic Valve: PIEDV 1.4 m/s . This study was interpreted by an [facility] accredited facility. CC: HIM (med records) [facility], Med/Surg - IP [facility]. ??Final ?? Procedure Note Dipesh Meehan MD - 10/29/2023 ECHOCARDIOGRAM SIMONA VELÁZQUEZ : 1960 62 years Study Date: 10/28/2023 5:35:07 PM Gender: F BP: 114/86 mmHg Height: 173.00 cm BSA: 1.64 m? ? ? Weight: 54.00 kg Tech: [facility] Referring MD: JUNIOR GARVEY Site: [facility] Reading Location: [facility] Patient Location: Inpatient. Procedure: 2D, Color Doppler and Spectral Doppler. Indication for study: Elevated troponin; Syncope; Cardiomyopathy (HC) Cardiac Rhythm: Regular.Study quality: Imaging limitations: This study was subject to imaging limitations due toa prominent lung artifact. Final Impressions: 1. Normal LV size, normal wall thickness, normal global systolic functionwith an estimated EF of 60 - 65%. 2. Basal septum segment is abnormal. 3. Right ventricular cavity size is normal, global systolic RV functionis normal. 4. The mitral valve is normal, mild mitral regurgitation. 5. Mild tricuspid regurgitation with an estimated RVSP of 31 mmHg plusthe RA pressure. 6. IVC geometry compatible with a normal estimated RA pressure (3mmHg). Comparison Compared to prior exam of 07/05/2023: - The left ventricular function has increased. The inferoseptal wallmotion abnormality was more pronounced on the prior study. Chamber Sizes and Function Normal left ventricular size, normal wall thickness, normal globalsystolic function with an estimated EF of 60 - 65%. Left atrial size isnormal. Right ventricular cavity size is normal, global systolic RVfunction is normal. RV wall thickness is normal. The right atrium isnormal. Right atrial volume index is 19 ml/m? ? ?. Right atrial area is 13cm? ? ?. The pulmonary artery is of normal size and origin. The sinus ofValsalva is normal sized. The ascending aorta is normal sized. The basalseptum segment is hypokinetic. All remaining scored segments are normal. Valves, RV Pressures and Diastolic Function The aortic valve is normal in structure and trileaflet, no stenosis and noregurgitation. The mitral valve is normal in structure, mild mitralregurgitation. Normal diastolic function. The tricuspid valve is normal instructure. Tricuspid regurgitation is mild regurgitation. The tricuspidregurgitant velocity is 2.8 m/s, the estimated right ventricular systolicpressure is 31 mmHg plus right atrial pressure. The pulmonic valve isnormal. Trace pulmonary regurgitation. Masses, Effusion, Shunts There is no pericardial effusion. The inferior vena cava is normal sized,respiratory size variation greater than 50%. No left to right shunting wasdetected by limited color flow Doppler interrogation of the interatrialseptum. MEASUREMENTS AND CALCULATIONS 2-D Measurements and LV Function: LVID (d) 4.4 cm LV FS% (2D) 38 % LVID (s) 2.8 cm LVOT diameter 1.9 cm IVS (d) 0.9 cm HR 80 bpm LVPW (d) 1.0 cm LA Vol index 31 ml/m2 Ao Sinus 3.2 cm RA Vol index 19 ml/m2 Asc Ao 3.3 cm RA area 13 cm? ? ? LA 3.0 cm RV Max 4C (d) 3.5 cm Diastology: Mitral Tissue Doppler E Peak 0.7 m/s e', Septum 0.07 m/s A Peak 0.6 m/s e', Lateral 0.09 m/s E/A 1.1 E/e' Average 8.60 DT 125 msec Aortic Valve: Vmax 1.2 m/s IFTIKHAR (V) 1.84 cm? ? ? VTI 0.22 m IFTIKHAR (I) 1.88 cm? ? ? LVOT V max 0.8 m/s Max PG 6 mmHg LVOT VTI 0.15 m Mean PG 3 mmHg SV 42 ml Dim Index 0.68 SV index 26 ml/m? ? ? CO 3.4 l/min CI 2.0 l/min/m? ? ? Mitral Valve: MVA 6.1 cm? ? ? MR TVI 1.52 m MV P 1/2 36 msec Tricuspid Valve and estimated PA pressures: TR Vmax 2.8 m/s TAPSE 1.9 cm TR maxG 31 mmHg Pulmonic Valve: PIEDV 1.4 m/s . This study was interpreted by an [facility] accredited facility. CC: HIM (med records) [facility], Med/Surg - IP [facility]. Final Junior Garvey MD ECHO ORD from Last 3 Months Advance Directives Latest Code Status on File Code Status Date Activated Date Inactivated Comments Full Code 06/30/2023 11:58 AM 07/17/2023 6:01 PM Question Answer Comments Code Status Discussion: Reviewed Preferences Code Status History Code Status Date Activated Date Inactivated Comments Full Code 06/30/2023 3:20 AM 06/30/2023 11:58 AM Question Answer Comments Code Status Discussion: Unable to Assess Preferences, Provider to review later Full Code 12/20/2022 10:27 PM 12/29/2022 1:38 PM Question Answer Comments Code Status Discussion: Reviewed Preferences Full Code 08/06/2022 7:17 AM 08/27/2022 7:44 PM Question Answer Comments Code Status Discussion: Reviewed Preferences Full Code 08/03/2022 11:52 PM 08/06/2022 7:17 AM Question Answer Comments Code Status Discussion: Unable to Assess Preferences, Provider to review later Care Teams Hand Inspector Relationship Specialty Start Date End Date Stefan Cruz DO [address] [place] [address] PCP - General Family Practice 12/10/[address] [address] 07/16/23 Alexi Keating, RN [address] [address] Nurse Navigator - Oncology Registered Nurse 10/08/23 Kim Gallo MD [address] [facility] [address] [place] [address] Surgery - Colon and Rectal 10/08/23
[2023-12-22 13:19] LABS: HCO3 VBG 28 mmol/L (21-28); PCO2 VBG 36 mmHG (40-50); PO2 VBG 51.8 mmHG (25-47); pH VBG 7.501 (7.32-7.43)
[2023-12-22] MEDS: 0.9 % SODIUM CHLORIDE 1000 ml 1,000 ML IV (13:20)
[2023-12-22 13:21] LABS: Basophils Absolute Auto 0.03 K/uL (0.00-0.30); Basophils Percent Auto 0.5 % (0.0-3.0); Eosinophils Absolute Auto 0.01 K/uL (0.00-0.50); Eosinophils Percent Auto 0.2 % (0.0-7.0); Hematocrit 33.9 % (33.0-51.0); Hemoglobin* 11.9 gm/dL (12.0-16.0); Immature Granulocytes Abs Auto 0.02 K/uL (0.00-0.30); Immature Granulocytes Pct Auto 0.4 %; Lymphocytes Absolute Auto 1.85 K/uL (0.90-2.90); Mean Corpuscular HGB Conc 35 gm/dL (32-36); Mean Corpuscular Hemoglobin 37 pg (26-34); Mean Corpuscular Volume 104 fL (80-100); Monocytes Percent Auto 6.1 % (0.0-11.0); Neutrophils Absolute Auto 3.36 K/uL (1.7-7.0); Neutrophils Percent Auto 59.8 % (42.0-72.0); Platelet Count* 170 K/uL (140-440); RDW Coefficient of Variation % 12.1 % (11.5-15.5); Red Blood Count 3.26 m/uL (4.00-5.20); White Blood Count* 5.61 K/uL (4.50-11.00)
[2023-12-22 13:28] LABS: Lactate* 2.5 mmol/L (0.5-1.9)
[2023-12-22 13:40] LABS: Slide Review Reflex No
[2023-12-22 13:53] LABS: Albumin* 4.5 g/dL (3.3-5.0); Chloride* 93 mmol/L (96-114)
[2023-12-22 13:54] LABS: Sodium* 140 mmol/L (135-149)
[2023-12-22 13:56] LABS: Alkaline Phosphatase* 117 U/L (40-150); Anion Gap 20 mEq/L (7-15); Aspartate Amino Transferase* 220 U/L (12-35); Bilirubin Total* 1.5 mg/dL (0.1-1.5); Blood Urea Nitrogen* 7 mg/dL (7-30); Carbon Dioxide* 27 mmol/L (20-32); Creatinine* 0.5 mg/dL (0.5-1.5); Est. Creatinine Clearance* 47.42; Estimated Glomerular Filt Rate 105 ml/min; Glucose* 81 mg/dL (60-115); Total Protein* 7.8 g/dL (6.0-8.3)
[2023-12-22 13:57] LABS: Alanine Aminotransferase* 113 U/L (4-35); Calcium* 7.8 mg/dL (8.4-10.6); Creatine Kinase* 153 U/L (41-117); Lipase* 145 U/L (23-300); Magnesium* 1.2 mg/dL (1.5-2.6)
[2023-12-22 14:08] LABS: Troponin I* 0.04 ng/mL (0.01-0.04)
[2023-12-22 14:11] LABS: Ethanol* 0.37 % (0.01-0.03); Potassium* 2.2 mmol/L (3.6-5.1)
[2023-12-22] MEDS: LORazepam 2 MG/ML inj 1 MG IVP (14:45)
[2023-12-22] MEDS: POTASSIUM BICARB 25 MEQ EFFERVESCENT TAB PO (14:45)
[2023-12-22] MEDS: POTASSIUM CHLORIDE 10 MEQ/100 ML PIGGYBACK 100 MEQ IVPB ×5 (14:51→23:20)
[2023-12-22] MEDS: MAGNESIUM IV 2 GM/50 ML PIGGYBACK IVPB (15:09)
--- NOTE | 2023-12-22 17:30 | ED.NURSE ---
pt report given to jasmin olivera
--- NOTE | 2023-12-22 17:37 | P.IMHP_ITS ---
Hospitalist- H&P: HPI History of Present Illness Date Seen: 12/26/23 Chief complaint: ETOH Narrative: ADMISSION HISTORY AND PHYSICAL - HOSPITALIST Chief Complaint: Intoxicated, found in her own feces, weak HPI: 63-year-old Simona is well known to the hospitalist service. She was here for 10 days last month. She was found today by her son acutely intoxicated, passed out on the couch covered in her own feces. Today is her birthday. It is unclear if she has had any sobriety since her discharge on 07 November. She was diagnosed with Clostridium difficile colitis during her last hospitalization and completed treatment with oral vancomycin. I have been unable to reach her son lalo. Her alcohol level upon arrival by EMS is 0.37 %. She arrived quite agitated. As with her prior hospitalization she has significant electrolyte abnormalities including hypokalemia and hypomagnesemia. This time she is also found to have several abrasions and broken ribs. ER COURSE: Electrolyte replacement initiated, fluid resuscitation. Ativan for agitation. Labs, CT, x-rays. Hospital medicine team was asked to admit for further management of her electrolyte abnormalities and her inability to care for herself. CODE STATUS: FULL CODE EMERGENCY CONTACT PLAN: Ranjit Velázquez? Son?Rel to [facility]? [phone]?Cell Phone? [facility], medications and allergies in the Expanse tabs. INVESTIGATIONS: LABS/MICRO/ECG/IMAGING CBC reflects a normal white blood cell count. Stable compared to her previous hemoglobins at 11.9. Normal platelet count. PH 7.5 Potassium 2.2 magnesium 1.2 Normal sodium. Normal creatinine. Lactate 2.5 Marked elevation in her transaminases CK mildly elevated at 153 Normal troponin Normal lipase CT Head No acute intracranial process per unenhanced head CT. CT Neck Neg CT AP -Patchy areas of alveolar consolidation right lower lobe -Edema involving the rectosigmoid colon and the left colon most likely secondary to nonspecific colitis. -Diffuse severe fatty infiltration of the liver. -Multiple nondisplaced fractures ribcage bilateral without any evidence of pneumothorax. REVIEW OF SYSTEMS: 12-point ROS completed with patient and negative unless otherwise stated in HPI or below. PHYSICAL EXAM: CONSTITUTIONAL: By the time I visit with her (1899) she is calm and oriented. Disheveled. Cachectic. VITAL SIGNS: see record. HEENT: Large shiner under her left eye. PERRL, EOMI, conjunctivae pink, no scleral icterus. Ears and nose externally normal. Pharynx normal. NECK: No JVD. No carotid bruit, no thyromegaly, no adenopathy. CHEST: Clear to auscultation bilaterally HEART: S1 and S2 normal. No harsh murmurs. Edema minimal MUSCULOSKELETAL: Band aide across her left knee. NEURO: Cranial nerves intact. Grossly intact. No asymmetric findings. SKIN: No rashes, petechiae, concerning changes PSYCHIATRIC: Euthymic. ADMIT TO MEDSURG: FLOOR CARE DVT: Lovenox GI: PO intake, ppi Time spent: Today I spent 75 minutes seeing the patient, discussing the patient with ER staff, reviewing Expanse and EPIC notes/diagnostics, discussing the care plan with our care time that includes social work, PT/OT, pharmacy, RT, correction and documenting my impressions and plan in the medical record. [facility] Medical History (Updated 12/25/23 @ 17:08 by Astrid Valentino MD) Elevated TSH ?R79.89 - Other specified abnormal findings of blood chemistry (ICD-10) Macrocytic anemia ?D53.9 - Nutritional anemia, unspecified (ICD-10) Macrocytosis ?D75.89 - Other specified diseases of blood and blood-forming organs (ICD-10) Syncope ?R55 - Syncope and collapse (ICD-10) Social History (Updated 12/22/23 @ 19:08 by Dipesh Larkin MD) What is your current living situation?: I presently have a place to live Problems where you live: no known problems Problems where you live details: N/A In the past 12 months, utilities in danger of being shut off: no In past 12 months, lack of transportation kept you from medical appts, meetings, work, or getting things needed for daily living: no In the past 12 mos, have been you worried that your food would run out before you had money to buy more?: never true In the past 12 mos, the food you bought just didn't last and you didn't have money to buy more?: never true Highest level of school completed/degree received: Associate degree: occupational, technical, vocational program Smoking Status: Former smoker What tobacco products do you use: cigarettes Smoking packs per day: 0.25 Smoking cigarettes per day: 5.0 Years smoked: 20 Smoking pack-years: 5.00 Smoking quit date/years: <= 15 years ago Do you use any of these nicotine containing products: None Second hand tobacco smoke exposure: No How often do you have a drink containing alcohol: 2-4 times a month Alcohol type: hard liquor Alcohol type details: Rum and coke How many standard drinks containing alcohol do you have on a typical day: 1 or 2 How often do you have six or more drinks on one occasion: Never AUDIT-C Alcohol total score: 2 Non-prescribed substance use: denies use Caffeine: Yes (tea) How often does anyone, including family, friends and others, physically hurt you : never How often does anyone, including family, friends and others, insult or talk down to you: never How often does anyone, including family, friends and others, threaten you with harm: never How often does anyone, including family, friends and others, scream or curse at you: never service: No Meds Home Medications and Allergies Home Medications Medication Instructions Recorded Confirmed Type aspirin 81 mg tablet,delayed 81 mg PO DAILY 10/27/23 10/28/23 History release dronabinol 2.5 mg capsule 2.5 mg PO BID 10/27/23 10/27/23 History losartan 25 mg tablet 25 mg PO DAILY 10/27/23 10/27/23 History magnesium oxide 400 mg (241.3 mg 800 mg PO BID 10/27/23 10/28/23 History magnesium) tablet nitroglycerin 0.4 mg sublingual 0.4 - 0.8 mg sublingual Q5M angina 10/27/23 10/27/23 History tablet pantoprazole 40 mg tablet,delayed 40 mg PO DAILY 10/27/23 10/27/23 History release rosuvastatin 20 mg tablet 20 mg PO QPM 10/27/23 10/27/23 History sertraline 50 mg tablet 50 mg PO DAILY 10/27/23 10/27/23 History albuterol sulfate 90 mcg/actuation 2 inh inhalation Q6H PRN 10/28/23 10/28/23 History aerosol inhaler (Ventolin HFA) loperamide 2 mg capsule (Imodium 2 mg PO Q6H PRN 10/28/23 10/28/23 History A-D) polyethylene glycol 3350 17 17 g PO BID 10/28/23 10/28/23 History gram/dose oral powder (ClearLax) Allergies Allergy/AdvReac Type Severity Reaction Status Date / Time Penicillins Allergy Verified 12/22/23 15:43 Exam Const: Vital Signs, click to edit/add: Vital Signs - 24 hr 12/22/23 11:52 12/22/23 11:56 12/22/23 12:00 Temperature 97.3 F L Pulse Rate 109 H 102 H Pulse Rate [Pulse Oximeter] 97 Respiratory Rate 18 Blood Pressure Blood Pressure [Ri ght Upper Arm] 143/114 H Pulse Oximetry 98 97 97 Oxygen Delivery Me thod Room Air 12/22/23 12:55 12/22/23 12:56 12/22/23 13:00 Temperature Pulse Rate 99 104 H 103 H Pulse Rate [Pulse Oximeter] Respiratory Rate Blood Pressure 130/86 Blood Pressure [Ri ght Upper Arm] Pulse Oximetry 95 97 94 Oxygen Delivery Me thod 12/22/23 13:28 12/22/23 13:30 12/22/23 13:45 Temperature Pulse Rate 106 H 101 H 77 Pulse Rate [Pulse Oximeter] Respiratory Rate Blood Pressure Blood Pressure [Ri ght Upper Arm] Pulse Oximetry 95 98 96 Oxygen Delivery Me thod 12/22/23 14:00 12/22/23 14:12 12/22/23 14:15 Temperature Pulse Rate 88 79 Pulse Rate [Pulse Oximeter] Respiratory Rate 18 Blood Pressure 127/92 H Blood Pressure [Ri ght Upper Arm] Pulse Oximetry 100 96 96 Oxygen Delivery Me thod Room Air 12/22/23 14:15 12/22/23 14:30 12/22/23 14:45 Temperature Pulse Rate 79 84 88 Pulse Rate [Pulse Oximeter] Respiratory Rate Blood Pressure Blood Pressure [Ri ght Upper Arm] Pulse Oximetry 95 97 96 Oxygen Delivery Me thod 12/22/23 15:11 12/22/23 15:12 12/22/23 15:15 Temperature Pulse Rate 87 84 83 Pulse Rate [Pulse Oximeter] Respiratory Rate Blood Pressure 121/85 Blood Pressure [Ri ght Upper Arm] Pulse Oximetry 95 97 95 Oxygen Delivery Me thod 12/22/23 15:50 12/22/23 15:51 12/22/23 16:00 Temperature Pulse Rate 86 81 73 Pulse Rate [Pulse Oximeter] Respiratory Rate Blood Pressure 151/99 H Blood Pressure [Ri ght Upper Arm] Pulse Oximetry 95 96 98 Oxygen Delivery [facility] 12/22/23 16:02 12/22/23 16:15 Temperature Pulse Rate 99 80 Pulse Rate [Pulse Oximeter] Respiratory Rate Blood Pressure 142/98 H Blood Pressure [Ri ght Upper Arm] Pulse Oximetry 97 97 Oxygen Delivery [facility] Hospitalist - H&P: Result Labs Labs: Short CBC 12/22/23 Range/Units 13:00 WBC 5.61 (4.50-11.00) K/uL Hgb 11.9 L (12.0-16.0) gm/dL Hct 33.9 (33.0-51.0) % Plt Count 170 (140-440) K/uL BMP 12/22/23 13:00 Sodium 140 Potassium 2.2 L* Chloride 93 L Carbon Dioxide 27 BUN 7 Creatinine 0.5 Glucose 81 Calcium 7.8 L Cardiac Enzymes 12/22/23 Range/Units 13:00 Total Creatine Kinase 153 H (41-117) U/L Troponin I 0.04 (0.01-0.04) ng/mL Liver Function 12/22/23 Range/Units 13:00 Total Bilirubin 1.5 (0.1-1.5) mg/dL AST 220 H (12-35) U/L ALT 113 H (4-35) U/L Alkaline Phosphatase 117 (40-150) U/L Albumin 4.5 (3.3-5.0) g/dL Assessment and Plan Assessment and plan (1) Alcohol dependence with acute alcoholic intoxication with complication: Problem comment: - Admit etoh 0.37% - will manage the intoxication and possible withdrawal in coming days with supportive meds, CIWA scale, phenobarbital, benzos, atarax Status: Acute (2) Acute hypokalemia: Problem comment: - improving, tolerating oral replacement - control diarrhea, hydrate Status: Acute (3) Hypomagnesemia: Problem comment: -bumps of IV replacement, oral when tolerating PO (refusing p.o. given diarrhea) -control diarrhea -hydrate Status: Acute (4) Colitis: Problem comment: - + C-diff, on oral Vancomycin - possibly related to known malignancy Status: Acute (5) Multiple rib fractures: Problem comment: - acute/subacute. seen at last admission - evidence of poor self care and frequent falls Status: Acute (6) Alcoholic liver disease: Problem comment: - stigmata: severe fatty liver, macrocytic anemia, thrombocytopenia, elevated INR and bilirubin. Normal creatinine, no ascites. MELD 9.0 11/2023 Status: Acute (7) Alcohol use disorder, severe, dependence: Status: Deleted (8) Aspiration pneumonia: Problem comment: - patchy areas of alveolar consolidation in the RLL (see body of read, not impression) noted on admission CT of A/P - single view chest xray clear - normal WBC and procalcitonin, stable on RA, no clinical evidence of PNA, continue to closely monitor - no antibiotics needed at this time, follow Status: Acute
--- NOTE | 2023-12-22 18:06 | CRLHL7_ITS ---
For Patients: As a result of the Century Cures Act, medical imaging exams and procedure reports are released immediately into your electronic medical record. You may view this report before your referring provider. If you have questions, please contact your health care provider. INDICATION: Intoxicated TECHNIQUE: Two view chest. FINDINGS: The lungs are clear. The heart, mediastinum and pulmonary vessels are of normal size. There is no evidence of pleural disease.Bilateral rib fractures. These appear subacute or older. No definite acute fractures seen. Dictated by Gela Bhagat MD @ 12/22/2023 7:24:21 PM (Electronically Signed)
[2023-12-22 18:17] LABS: INR 0.87 (0.91-1.10); Prothrombin Time 12.3 Seconds
[2023-12-22] MEDS: PANTOPRAZOLE SODIUM 40 MG INJ IVP (19:10)
[2023-12-22] MEDS: ENOXAPARIN 30 MG/0.3ML INJ SUBCUT (19:10)
[2023-12-22] MEDS: 5 % DEX/0.45 SOD CHL+KCL20 mEq 1,000 ML 125 ML IV (19:10)
[2023-12-22] MEDS: SODIUM CHLORIDE 0.9 % (FLUSH) 10 ML SYRINGE 5 ML IVF (19:11)
[2023-12-22 19:43] LABS: C Reactive Protein* < 0.5 mg/dL (0.5-1.0)
[2023-12-22] MEDS: MAGNESIUM IV 4 GM/100 ML PIGGYBACK IVPB (19:46)
[2023-12-22 19:55] LABS: Procalcitonin* 0.15 ng/mL (<0.50)
[2023-12-22] MEDS: THIAMINE 250 MG in 0.9 % SODIUM CHLORIDE 100 ml 100 ML 102.5 MG IVPB (20:58)
[2023-12-22 20:59] LABS: Appearance Urine Clear (Clear); Bilirubin Urine Negative (Negative); Blood Urine Negative (Negative); Color Urine Yellow (Yellow); Glucose Urine Negative (Negative); Ketones Urine 1+ (Negative); Leukocyte Esterase Urine Negative (Negative); Nitrite Urine Negative (Negative); Protein Urine Negative (Negative)
[2023-12-22] MEDS: NICOTINE 14 mg PATCH 1 PATCH TOPICAL (21:01)
[2023-12-22] MEDS: VANCOMYCIN 125 MG CAPSULE PO (21:01)
[2023-12-22] MEDS: METOPROLOL TARTRATE 25 MG TABLET 50 MG PO (21:01)
[2023-12-22 21:05] LABS: Amphetamine Screen Urine Negative (Negative); Barbiturate Screen Urine Negative (Negative); Benzodiazepines Screen Urine Negative (Negative); Cannabinoid Screen Urine Negative (Negative); Cocaine Screen Urine Negative (Negative); Methadone Screen Urine Negative (Negative); Methamphetamines Screen Urine Negative (Negative); Opiate Screen Urine Negative (Negative); Oxycodone Screen Urine Negative (Negative); Phencyclidine Screen Urine Negative (Negative); Tricyclic Antidepressant Urine Negative (Negative)
[2023-12-22 21:23] LABS: RBC Urine 0-2 (0-2); Squamous Epithelial Cell Urine Few (None-Few); WBC Urine 0-2 (0-5)
[2023-12-22 21:24] LABS: PCR FLU A Negative PCR FLU A (Negative); PCR FLU B Negative PCR FLU B (Negative); PCR RSV Negative PCR RSV (Negative); SARS PCR* Negative SARS-CoV-2 (Negative)
[2023-12-22 21:57] LABS: HCO3 VBG 27 mmol/L (21-28); PCO2 VBG 35 mmHG (40-50); PO2 VBG 62.3 mmHG (25-47)
[2023-12-22 21:58] LABS: Lactate* 2.4 mmol/L (0.5-1.9)
--- NOTE | 2023-12-22 22:19 | PC.NURSE ---
Shift note: CIWA score 0, pt walks to the bathroom with SBA, frequent voiding. She is afebrile, alert and oriented, uses call-light appropriately, denies pain.
[2023-12-22 22:20] LABS: Chloride* 95 mmol/L (96-114); Sodium* 138 mmol/L (135-149)
[2023-12-22 22:23] LABS: Anion Gap 18 mEq/L (7-15); Blood Urea Nitrogen* 6 mg/dL (7-30); Carbon Dioxide* 25 mmol/L (20-32); Creatinine* 0.5 mg/dL (0.5-1.5); Est. Creatinine Clearance* 47.01; Estimated Glomerular Filt Rate 105 ml/min; Glucose* 202 mg/dL (60-115)
[2023-12-22 22:24] LABS: Calcium* 7.6 mg/dL (8.4-10.6); Magnesium* 2.3 mg/dL (1.5-2.6)
[2023-12-22 22:26] LABS: Potassium* 2.8 mmol/L (3.6-5.1)
[2023-12-23] VITALS (11 sets, daily range): BP systolic 123–148; BP diastolic 88–102; PULSE 64–83; RESP 16–18; TEMP 35.8–37; O2SAT 94–98; BMI 18.0
[2023-12-23 06:30] LABS: HCO3 VBG 35 mmol/L (21-28); PCO2 VBG 43 mmHG (40-50); PO2 VBG 42.4 mmHG (25-47); pH VBG 7.513 (7.32-7.43)
--- NOTE | 2023-12-23 06:30 | PC.NURSE ---
: SBA with cane. calls appropriately. scattered bruising & scabs r/t falls per pt. c/o pain. 2x small loose BM, stool sample sent to lab.
[2023-12-23 06:41] LABS: Hematocrit 30.2 % (33.0-51.0); Hemoglobin* 10.5 gm/dL (12.0-16.0); Mean Corpuscular HGB Conc 35 gm/dL (32-36); Mean Corpuscular Hemoglobin 37 pg (26-34); Mean Corpuscular Volume 106 fL (80-100); Platelet Count* 143 K/uL (140-440); Red Blood Count 2.86 m/uL (4.00-5.20); White Blood Count* 4.34 K/uL (4.50-11.00)
[2023-12-23 06:50] LABS: Slide Review Reflex No
[2023-12-23 06:52] LABS: Albumin* 3.7 g/dL (3.3-5.0); Chloride* 93 mmol/L (96-114); Sodium* 133 mmol/L (135-149)
[2023-12-23 06:54] LABS: Creatinine* 0.4 mg/dL (0.5-1.5); Est. Creatinine Clearance* 48.98; Estimated Glomerular Filt Rate 111 ml/min
[2023-12-23 06:55] LABS: Alkaline Phosphatase* 124 U/L (40-150); Anion Gap 7 mEq/L (7-15); Aspartate Amino Transferase* 145 U/L (12-35); Bilirubin Direct* 0.4 mg/dL (0.0-0.5); Bilirubin Total* 1.7 mg/dL (0.1-1.5); Blood Urea Nitrogen* 5 mg/dL (7-30); Carbon Dioxide* 33 mmol/L (20-32); Creatine Kinase* 123 U/L (41-117); Glucose* 164 mg/dL (60-115); Total Protein* 6.7 g/dL (6.0-8.3)
[2023-12-23 06:56] LABS: Alanine Aminotransferase* 86 U/L (4-35); Calcium* 6.9 mg/dL (8.4-10.6); Magnesium* 2.1 mg/dL (1.5-2.6); Phosphorus* 1.2 mg/dL (2.5-4.5)
[2023-12-23 06:58] LABS: C Reactive Protein* 0.5 mg/dL (0.5-1.0)
[2023-12-23 07:09] LABS: Potassium* 2.6 mmol/L (3.6-5.1)
--- NOTE | 2023-12-23 08:01 | PM.IMPN1 ---
Progress Note: A&P Assessment and plan (1) Aspiration pneumonia: Problem details: - patchy areas of alveolar consolidation in the RLL (see body of read, not impression) noted on admission CT of A/P - single view chest xray clear - normal WBC and procalcitonin, stable on RA, deferring abx at this time with low threshold to initiate Status: Acute (2) Alcoholic liver disease: Problem details: - stigmata: severe fatty liver, macrocytic anemia, elevated INR and bilirubin. Normal creatinine, no ascites. MELD 9.0 11/2023 Status: Acute (3) Alcohol dependence with acute alcoholic intoxication with complication: Problem details: - Admit etoh 0.37% - will manage the intoxication and possible withdrawal in coming days with supportive meds, CIWA scale, phenobarbital, benzos, atarax Status: Acute (4) Multiple rib fractures: Problem details: - acute/subacute. seen at last admission. - evidence of poor self care and frequent falls Status: Acute (5) Colitis: Problem details: - stool studies including, CDIFF, ordered - possibly related to known malignancy Status: Acute (6) Acute hypokalemia: Problem details: - bumps of IV replacement, oral when tolerating PO - control diarrhea - hydrate Status: Acute (7) Hypomagnesemia: Problem details: -bumps of IV replacement, oral when tolerating PO -control diarrhea -hydrate Status: Acute (8) Colon cancer: Problem details: - diagnosed on 06/2023 colonoscopy (path below) - patient aware, sees Dr. Gallo for followup A) COLON, CECUM, POLYPECTOMY: 1. Tubular adenomas (4) 2. Negative for high grade dysplasia 3. Per the colonoscopy report: a. Polyp size: 5-8 mm b. Resection: Complete c. Retrieval: Complete B) COLON, ASCENDING, POLYPS, POLYPECTOMIES: 1. Adenocarcinoma, low grade (moderately differentiated) 2. Background adenomas are present (4 at colonoscopy - 2 small, one 10 mm, one 40 mm) 3. Please order CEA level and CT imaging (chest/abdomen/pelvis) prior to treatment 4. Ancillary studies: a. DNA mismatch repair enzymes intact by immunohistochemistry b. See comment and synoptic sections C) COLON, RANDOM, BIOPSY: 1. Normal colonic mucosa 2. Negative for microscopic, active, and chronic colitis D) COLON, DESCENDING, POLYPECTOMY: 1. Tubulovillous adenoma with high grade dysplasia consistent with advanced adenoma 2. Negative for malignancy 3. Per the colonoscopy report: a. Polyp size: 30 mm b. Resection: Complete c. Retrieval: Complete Status: Acute Plan - per above - Lovenox for ppx - therapies and nutrition following Subjective Date Seen: 12/23/23 Interval history: Simona was admitted to the hospital last night after being found down at home by son, weak and confused. She was noted to have significant diarrhea with h/o C-Diff; Vancomycin empirically restarted. In addition, noted to have severe hypokalemia, hypocalcemia, hypomagnesemia, and ETOH of 0.37. Last drink sometime on 12/22. Simona understands the importance of cessation, risks of continued drinking. She is overdue for f/u with Dr. Gallo for her colon cancer (diagnosed 06/2023). Exam Narrative: Exam Narrative: GEN: Alert and sitting in bed comfortably HEENT: Edentulous, EOMIs bilaterally, no scleral icterus CV: RRR, No concerning murmurs R: LCTA bilaterally without concerning wheezing, air movement is adequate Ab: Soft, tolerates palpation, minimal distention, no rebound or guarding Ext: wwp, no concerning edema Skin: No concerning skin lesions or rashes on exposed skin Neuro: Nonfocal Psych: Appropriate Const: Vital Signs, click to edit/add: Vital Signs - 24 hr 12/22/23 11:52 12/22/23 11:56 12/22/23 12:00 Temperature 97.3 F L Pulse Rate 109 H 102 H Pulse Rate [Pulse Oximeter] 97 Pulse Rate [Right Radial] Respiratory Rate 18 Blood Pressure Blood Pressure [Ri ght Arm] Blood Pressure [Ri ght Upper Arm] 143/114 H Pulse Oximetry 98 97 97 Oxygen Delivery Me thod Room Air 12/22/23 12:55 12/22/23 12:56 12/22/23 13:00 Temperature Pulse Rate 99 104 H 103 H Pulse Rate [Pulse Oximeter] Pulse Rate [Right Radial] Respiratory Rate Blood Pressure 130/86 Blood Pressure [Ri ght Arm] Blood Pressure [Ri ght Upper Arm] Pulse Oximetry 95 97 94 Oxygen Delivery Me thod 12/22/23 13:28 12/22/23 13:30 12/22/23 13:45 Temperature Pulse Rate 106 H 101 H 77 Pulse Rate [Pulse Oximeter] Pulse Rate [Right Radial] Respiratory Rate Blood Pressure Blood Pressure [Ri ght Arm] Blood Pressure [Ri ght Upper Arm] Pulse Oximetry 95 98 96 Oxygen Delivery Me thod 12/22/23 14:00 12/22/23 14:12 12/22/23 14:15 Temperature Pulse Rate 88 79 Pulse Rate [Pulse Oximeter] Pulse Rate [Right Radial] Respiratory Rate 18 Blood Pressure 127/92 H Blood Pressure [Ri ght Arm] Blood Pressure [Ri ght Upper Arm] Pulse Oximetry 100 96 96 Oxygen Delivery Me od Room Air 12/22/23 14:15 12/22/23 14:30 12/22/23 14:45 Temperature Pulse Rate 79 84 88 Pulse Rate [Pulse Oximeter] Pulse Rate [Right Radial] Respiratory Rate Blood Pressure Blood Pressure [Ri ght Arm] Blood Pressure [Ri ght Upper Arm] Pulse Oximetry 95 97 96 Oxygen Delivery Me thod 12/22/23 15:11 12/22/23 15:12 12/22/23 15:15 Temperature Pulse Rate 87 84 83 Pulse Rate [Pulse Oximeter] Pulse Rate [Right Radial] Respiratory Rate Blood Pressure 121/85 Blood Pressure [Ri ght Arm] Blood Pressure [Ri ght Upper Arm] Pulse Oximetry 95 97 95 Oxygen Delivery Me od 12/22/23 15:50 12/22/23 15:51 12/22/23 16:00 Temperature Pulse Rate 86 81 73 Pulse Rate [Pulse Oximeter] Pulse Rate [Right Radial] Respiratory Rate Blood Pressure 151/99 H Blood Pressure [Ri ght Arm] Blood Pressure [Ri ght Upper Arm] Pulse Oximetry 95 96 98 Oxygen Delivery Me thod 12/22/23 16:02 12/22/23 16:15 12/22/23 16:30 Temperature Pulse Rate 99 80 85 Pulse Rate [Pulse Oximeter] Pulse Rate [Right Radial] Respiratory Rate Blood Pressure 142/98 H Blood Pressure [Ri ght Arm] Blood Pressure [Ri ght Upper Arm] Pulse Oximetry 97 97 96 Oxygen Delivery Me thod 12/22/23 16:31 12/22/23 16:45 12/22/23 17:00 Temperature Pulse Rate 82 84 81 Pulse Rate [Pulse Oximeter] Pulse Rate [Right Radial] Respiratory Rate Blood Pressure 125/91 H Blood Pressure [Ri ght Arm] Blood Pressure [Ri ght Upper Arm] Pulse Oximetry 98 94 97 Oxygen Delivery Me thod 12/22/23 17:02 12/22/23 17:20 12/22/23 17:39 Temperature 97.0 F L Pulse Rate 81 82 Pulse Rate [Pulse Oximeter] Pulse Rate [Right Radial] 86 Respiratory Rate 18 Blood Pressure 130/88 Blood Pressure [Ri ght Arm] 134/89 Blood Pressure [Ri ght Upper Arm] Pulse Oximetry 96 96 96 Oxygen Delivery Me thod Room Air 12/22/23 18:00 12/22/23 18:00 12/22/23 19:00 Temperature 97.0 F L 97.8 F Pulse Rate 111 H Pulse Rate [Pulse Oximeter] Pulse Rate [Right Radial] 86 125 H Respiratory Rate 18 18 Blood Pressure Blood Pressure [Ri ght Arm] 134/89 121/82 Blood Pressure [Ri ght Upper Arm] Pulse Oximetry 96 93 Oxygen Delivery Hi thod Room Air Room Air 12/22/23 23:00 12/22/23 23:00 12/22/23 23:00 Temperature Pulse Rate Pulse Rate [Pulse Oximeter] Pulse Rate [Right Radial] Respiratory Rate 18 18 Blood Pressure Blood Pressure [Ri ght Arm] Blood Pressure [Ri ght Upper Arm] Pulse Oximetry 92 93 Oxygen Delivery Me thod Room Air 12/22/23 23:00 12/22/23 23:29 12/23/23 02:48 Temperature 98.4 F 97.6 F Pulse Rate 79 Pulse Rate [Pulse Oximeter] Pulse Rate [Right Radial] 82 80 Respiratory Rate 18 16 Blood Pressure Blood Pressure [Ri ght Arm] 113/75 141/97 H Blood Pressure [Ri ght Upper Arm] Pulse Oximetry 92 94 Oxygen Delivery Me thod Room Air Room Air Labs Labs: Laboratory Results - last 24 hr 12/22/23 12/22/23 12/22/23 13:00 17:48 17:59 WBC 5.61 RBC 3.26 L Hgb 11.9 L Hct 33.9 MCV 104 H MCH 37 H MCHC 35 RDW Coeff of Katina 12.1 Plt Count 170 Neut % (Auto) 59.8 Lymph % (Auto) 33.0 [place] % (Auto) 6.1 Eos % (Auto) 0.2 Baso % (Auto) 0.5 Neut # (Auto) 3.36 Lymph # (Auto) 1.85 [place] # (Auto) 0.30 Eos # (Auto) 0.01 Baso # (Auto) 0.03 Abs Immat Gran (auto) 0.02 Imm/Tot Granulo (auto) 0.4 INR 0.87 L VBG pH 7.501 H VBG pCO2 36 L VBG pO2 51.8 H VBG HCO3 28 Sodium 140 Potassium 2.2 L* Chloride 93 L Carbon Dioxide 27 Anion Gap 20 H BUN 7 Creatinine 0.5 Estimated Creat Clear 47.42 Estimated GFR 105 Glucose 81 Lactate 2.5 H Calcium 7.8 L Ionized Calcium Sharyn Phosphorus Magnesium 1.2 L Total Bilirubin 1.5 Direct Bilirubin AST 220 H ALT 113 H Alkaline Phosphatase 117 Total Creatine Kinase 153 H Troponin I 0.04 C-Reactive Protein < 0.5 L Total Protein 7.8 Albumin 4.5 Lipase 145 Procalcitonin 0.15 Urine Color Urine Appearance Urine pH Ur Specific [place] Urine Protein Urine Glucose (UA) Urine Ketones Urine Blood Urine Nitrite Urine Bilirubin Urine Urobilinogen Ur Leukocyte Esterase Urine RBC Urine WBC Ur Squamous Epith Cells Urine Bacteria Urine Opiates Screen Negative Ur Oxycodone Screen Negative Urine Methadone Screen Negative Ur Barbiturates Screen Negative U Tricyclic Antidepress Negative Ur Phencyclidine Scrn Negative Ur Amphetamines Screen Negative U Methamphetamines Scrn Negative U Benzodiazepines Scrn Negative Urine Cocaine Screen Negative U Marijuana (THC) Screen Negative Ur Drug Screen Comment See Note Ethyl Alcohol 0.37 H* SARS-CoV-2 (PCR) Negative SARS-CoV-2 Influenza Type A (PCR) Negative PCR FLU A Influenza Type B (PCR) Negative PCR FLU B RSV (PCR) Negative PCR RSV Lab Acknowledgement 12/22/23 12/22/23 12/22/23 18:00 18:07 19:19 WBC RBC Hgb Hct MCV MCH MCHC RDW Coeff of Katina Plt Count Neut % (Auto) Lymph % (Auto) [place] % (Auto) Eos % (Auto) Baso % (Auto) Neut # (Auto) Lymph # (Auto) [place] # (Auto) Eos # (Auto) Baso # (Auto) Abs Immat Gran (auto) Imm/Tot Granulo (auto) INR VBG pH VBG pCO2 VBG pO2 VBG HCO3 Sodium Potassium Chloride Carbon Dioxide Anion Gap BUN Creatinine Estimated Creat Clear Estimated GFR Glucose Lactate Calcium Ionized Calcium Sharyn Phosphorus Magnesium Total Bilirubin Direct Bilirubin AST ALT Alkaline Phosphatase Total Creatine Kinase Troponin I C-Reactive Protein Total Protein Albumin Lipase Procalcitonin Urine Color Yellow Urine Appearance Clear Urine pH 7.0 Ur Specific [place] 1.010 Urine Protein Negative Urine Glucose (UA) Negative Urine Ketones 1+ A Urine Blood Negative Urine Nitrite Negative Urine Bilirubin Negative Urine Urobilinogen 1.0 Ur Leukocyte Esterase Negative Urine RBC 0-2 Urine WBC 0-2 Ur Squamous Epith Cells Few Urine Bacteria None Urine Opiates Screen Ur Oxycodone Screen Urine Methadone Screen Ur Barbiturates Screen U Tricyclic Antidepress Ur Phencyclidine Scrn Ur Amphetamines Screen U Methamphetamines Scrn U Benzodiazepines Scrn Urine Cocaine Screen U Marijuana (THC) Screen Ur Drug Screen Comment Ethyl Alcohol SARS-CoV-2 (PCR) Influenza Type A (PCR) Influenza Type B (PCR) RSV (PCR) Lab Acknowledgement Test Added Test Added 12/22/23 12/23/23 21:53 05:42 WBC 4.34 L RBC 2.86 L Hgb 10.5 L Hct 30.2 L MCV 106 H MCH 37 H MCHC 35 RDW Coeff of Katina Plt Count 143 Neut % (Auto) Lymph % (Auto) [place] % (Auto) Eos % (Auto) Baso % (Auto) Neut # (Auto) Lymph # (Auto) [place] # (Auto) Eos # (Auto) Baso # (Auto) Abs Immat Gran (auto) Imm/Tot Granulo (auto) INR VBG pH 7.500 H 7.513 H VBG pCO2 35 L 43 VBG pO2 62.3 H 42.4 VBG HCO3 27 35 H Sodium 138 133 L Potassium 2.8 L* 2.6 L* Chloride 95 L 93 L Carbon Dioxide 25 33 H Anion Gap 18 H 7 BUN 6 L 5 L Creatinine 0.5 0.4 L Estimated Creat Clear 47.01 48.98 Estimated GFR 105 111 Glucose 202 H 164 H Lactate 2.4 H Calcium 7.6 L 6.9 L Ionized Calcium Sharyn 0.90 L Phosphorus 1.2 L Magnesium 2.3 2.1 Total Bilirubin 1.7 H Direct Bilirubin 0.4 AST 145 H ALT 86 H Alkaline Phosphatase 124 Total Creatine Kinase 123 H Troponin I C-Reactive Protein 0.5 Total Protein 6.7 Albumin 3.7 Lipase Procalcitonin Urine Color Urine Appearance Urine pH Ur Specific [place] Urine Protein Urine Glucose (UA) Urine Ketones Urine Blood Urine Nitrite Urine Bilirubin Urine Urobilinogen Ur Leukocyte Esterase Urine RBC Urine WBC Ur Squamous Epith Cells Urine Bacteria Urine Opiates Screen Ur Oxycodone Screen Urine Methadone Screen Ur Barbiturates Screen U Tricyclic Antidepress Ur Phencyclidine Scrn Ur Amphetamines Screen U Methamphetamines Scrn U Benzodiazepines Scrn Urine Cocaine Screen U Marijuana (THC) Screen Ur Drug Screen Comment Ethyl Alcohol SARS-CoV-2 (PCR) Influenza Type A (PCR) Influenza Type B (PCR) RSV (PCR) Lab Acknowledgement
[2023-12-23 08:03] LABS: Gamma Glutamyl Transpeptidase* 228 U/L (8-55)
[2023-12-23] MEDS: 5 % DEX/0.45 SOD CHL+KCL20 mEq 1,000 ML 125 ML IV ×3 (08:14→16:50)
[2023-12-23] MEDS: POTASSIUM BICARB 25 MEQ EFFERVESCENT TAB 50 MEQ PO (08:36)
[2023-12-23] MEDS: CALCIUM GLUC 1,000MG/50 ML 1,000 MG/50 ML BAG 100 MG IVPB (08:37)
[2023-12-23] MEDS: POTASSIUM CHLORIDE 10 MEQ CAPSULE ER 40 MEQ PO ×2 (09:52→20:31)
[2023-12-23] MEDS: LOSARTAN POTASSIUM 50 MG TABLET 25 MG PO (09:53)
[2023-12-23] MEDS: OMEPRAZOLE 20 MG CAPSULE DR 40 MG PO (09:54)
[2023-12-23] MEDS: MULTIVITAMIN/MINERALS 1 TABLET 1 TAB PO (09:54)
[2023-12-23] MEDS: FOLIC ACID 1 MG TABLET PO (09:54)
[2023-12-23] MEDS: SERTRALINE 50 MG TABLET PO (09:54)
[2023-12-23] MEDS: VANCOMYCIN 125 MG CAPSULE PO ×4 (09:56→20:31)
[2023-12-23] MEDS: ASPIRIN 81 MG TABLET EC PO (09:56)
[2023-12-23] MEDS: METOPROLOL TARTRATE 25 MG TABLET 50 MG PO ×2 (09:57→20:31)
[2023-12-23] MEDS: POTASSIUM CHLORIDE 10 MEQ/100 ML PIGGYBACK 100 MEQ IVPB ×4 (09:58→22:02)
[2023-12-23] MEDS: SODIUM CHLORIDE 0.9 % (FLUSH) 10 ML SYRINGE 5 ML IVF (10:05)
[2023-12-23] MEDS: THIAMINE 250 MG in 0.9 % SODIUM CHLORIDE 100 ml 100 ML 102 MG IVPB ×3 (10:43→23:07)
[2023-12-23] MEDS: POTASSIUM CHLORIDE 10 MEQ/100 ML PIGGYBACK 50 MEQ IVPB (13:54)
[2023-12-23 15:28] LABS: CDIFFEPI 027 Presumptive Negative (Negative)
[2023-12-23 15:31] LABS: C.Difficile POSITIVE (Negative)
--- NOTE | 2023-12-23 15:32 | PC.SOCIAL ---
Social work: Received call from Bambi Koroma, [facility] stating son was going to work on getting guardianship of pt in October after her last hospital admission but Bambi does not think this happened. Bambi states there have been multiple reports of concerns due to drinking in the past six months. wardrobe specialty worker to follow up as needed.
[2023-12-23 16:40] LABS: Lactate* 4.7 mmol/L (0.5-1.9)
[2023-12-23 17:04] LABS: Chloride* 95 mmol/L (96-114)
[2023-12-23 17:05] LABS: Potassium* 3.3 mmol/L (3.6-5.1); Sodium* 134 mmol/L (135-149)
[2023-12-23 17:07] LABS: Creatinine* 0.4 mg/dL (0.5-1.5); Est. Creatinine Clearance* 48.98; Estimated Glomerular Filt Rate 111 ml/min
[2023-12-23 17:08] LABS: Anion Gap 10 mEq/L (7-15); Blood Urea Nitrogen* 5 mg/dL (7-30); Calcium* 7.8 mg/dL (8.4-10.6); Carbon Dioxide* 29 mmol/L (20-32); Glucose* 195 mg/dL (60-115)
[2023-12-23] MEDS: 0.9 % SODIUM CHLORIDE 1000 ml 1,000 ML IV (18:05)
[2023-12-23] MEDS: ROSUVASTATIN CALCIUM 10 MG TABLET 20 MG PO (19:29)
[2023-12-23] MEDS: ENOXAPARIN 30 MG/0.3ML INJ SUBCUT (19:32)
[2023-12-23 19:33] LABS: Lactate* 3.1 mmol/L (0.5-1.9)
--- NOTE | 2023-12-23 19:43 | PC.NURSE ---
shift note: BP elevated this a.m 140's/100's/ ciwa 7,2,2. Pt denies BENTLEY or pain. IV patent x2 on lt u/e. Pt had 2 moderate soft stools. Pt has intermittent dry cough. pt tolerates regular diet.
[2023-12-23] MEDS: 5 % DEX/0.9 SOD CHL+KCL 20 mEq 1,000 ML 125 ML IV (20:29)
[2023-12-23] MEDS: GABAPENTIN 300 MG CAPSULE PO (20:30)
[2023-12-23] MEDS: MAGNESIUM OXIDE 400 MG TABLET 800 MG PO (20:31)
[2023-12-23] MEDS: POTASSIUM BICARB 25 MEQ EFFERVESCENT TAB PO (23:06)
[2023-12-24] VITALS (12 sets, daily range): BP systolic 123–141; BP diastolic 94–103; PULSE 78–90; RESP 14–18; TEMP 36.4–37.2; O2SAT 94–98
[2023-12-24 06:14] LABS: HCO3 VBG 33 mmol/L (21-28); Ionized Calcium* 0.98 mmol/L (1.11-1.30); PCO2 VBG 37 mmHG (40-50); PO2 VBG 64.9 mmHG (25-47)
[2023-12-24] MEDS: 5 % DEX/0.9 SOD CHL+KCL 20 mEq 1,000 ML 125 ML IV (06:17)
[2023-12-24 06:37] LABS: Hematocrit 31.2 % (33.0-51.0); Hemoglobin* 10.5 gm/dL (12.0-16.0); Mean Corpuscular HGB Conc 34 gm/dL (32-36); Mean Corpuscular Hemoglobin 36 pg (26-34); Mean Corpuscular Volume 108 fL (80-100); Platelet Count* 128 K/uL (140-440); White Blood Count* 3.41 K/uL (4.50-11.00)
[2023-12-24 06:38] LABS: Slide Review Reflex No
--- NOTE | 2023-12-24 06:45 | PC.NURSE ---
End of shift report [id number]: Alert and oriented to person, place and date. Denies any pain or shortness of breath this shift. Continues to have intermittent moist cough, patient unable to expectorate sputum. Urge incontinence of bladder and bowel, loose stools x 3. SBA with cane. CIWA's 1 throughout the night. Slept well.
[2023-12-24 06:48] LABS: Albumin* 3.3 g/dL (3.3-5.0); Chloride* 103 mmol/L (96-114)
[2023-12-24 06:49] LABS: Potassium* 3.4 mmol/L (3.6-5.1); Sodium* 139 mmol/L (135-149)
[2023-12-24 06:51] LABS: Alkaline Phosphatase* 83 U/L (40-150); Anion Gap 3 mEq/L (7-15); Aspartate Amino Transferase* 95 U/L (12-35); Bilirubin Direct* 0.2 mg/dL (0.0-0.5); Bilirubin Total* 1.2 mg/dL (0.1-1.5); Blood Urea Nitrogen* 3 mg/dL (7-30); Carbon Dioxide* 33 mmol/L (20-32); Creatinine* 0.4 mg/dL (0.5-1.5); Est. Creatinine Clearance* 50.14; Estimated Glomerular Filt Rate 111 ml/min; Gamma Glutamyl Transpeptidase* 220 U/L (8-55); Glucose* 135 mg/dL (60-115); Total Protein* 6.2 g/dL (6.0-8.3)
[2023-12-24 06:52] LABS: Alanine Aminotransferase* 60 U/L (4-35); Calcium* 7.4 mg/dL (8.4-10.6)
[2023-12-24 06:53] LABS: Magnesium* 1.3 mg/dL (1.5-2.6)
[2023-12-24 06:55] LABS: C Reactive Protein* < 0.5 mg/dL (0.5-1.0); Phosphorus* 0.8 mg/dL (2.5-4.5)
[2023-12-24] MEDS: CALCIUM GLUC 1,000MG/50 ML 1,000 MG/50 ML BAG 100 MG IVPB (08:33)
[2023-12-24] MEDS: POTASSIUM BICARB 25 MEQ EFFERVESCENT TAB PO ×2 (09:24→17:45)
[2023-12-24] MEDS: 0.9 % SODIUM CHLORIDE 500 ML 500 ML IV (09:25)
[2023-12-24] MEDS: OMEPRAZOLE 20 MG CAPSULE DR 40 MG PO (09:26)
[2023-12-24] MEDS: VANCOMYCIN 125 MG CAPSULE PO ×4 (09:26→20:57)
[2023-12-24] MEDS: METOPROLOL TARTRATE 25 MG TABLET 50 MG PO ×2 (09:26→20:57)
[2023-12-24] MEDS: FOLIC ACID 1 MG TABLET PO (09:27)
[2023-12-24] MEDS: ASPIRIN 81 MG TABLET EC PO (09:27)
[2023-12-24] MEDS: MAGNESIUM OXIDE 400 MG TABLET 800 MG PO ×2 (09:27→20:57)
[2023-12-24] MEDS: SERTRALINE 50 MG TABLET PO (09:27)
[2023-12-24] MEDS: LOSARTAN POTASSIUM 50 MG TABLET 25 MG PO (09:28)
[2023-12-24] MEDS: POTASSIUM CHLORIDE 10 MEQ CAPSULE ER 40 MEQ PO ×2 (09:28→20:57)
[2023-12-24] MEDS: MULTIVITAMIN/MINERALS 1 TABLET 1 TAB PO (09:29)
--- NOTE | 2023-12-24 09:50 | PM.IMPN1 ---
Progress Note: A&P Assessment and plan (1) Aspiration pneumonia: Problem details: - patchy areas of alveolar consolidation in the RLL (see body of read, not impression) noted on admission CT of A/P - single view chest xray clear - normal WBC and procalcitonin, stable on RA, no clinical evidence of PNA, continue to closely monitor Status: Acute (2) Alcoholic liver disease: Problem details: - stigmata: severe fatty liver, macrocytic anemia, elevated INR and bilirubin. Normal creatinine, no ascites. MELD 9.0 11/2023 Status: Acute (3) Alcohol dependence with acute alcoholic intoxication with complication: Problem details: - Admit etoh 0.37% - will manage the intoxication and possible withdrawal in coming days with supportive meds, CIWA scale, phenobarbital, benzos, atarax Status: Acute (4) Multiple rib fractures: Problem details: - acute/subacute. seen at last admission - evidence of poor self care and frequent falls Status: Acute (5) Colitis: Problem details: - + C-diff, on oral Vancomycin - possibly related to known malignancy Status: Acute (6) Acute hypokalemia: Problem details: - improving, tolerating oral replacement - control diarrhea - hydrate Status: Acute (7) Hypomagnesemia: Problem details: -bumps of IV replacement, oral when tolerating PO -control diarrhea -hydrate Status: Acute (8) Colon cancer: Problem details: - diagnosed on 06/2023 colonoscopy (path below) - patient aware, sees Dr. Gallo for followup A) COLON, CECUM, POLYPECTOMY: 1. Tubular adenomas (4) 2. Negative for high grade dysplasia 3. Per the colonoscopy report: a. Polyp size: 5-8 mm b. Resection: Complete c. Retrieval: Complete B) COLON, ASCENDING, POLYPS, POLYPECTOMIES: 1. Adenocarcinoma, low grade (moderately differentiated) 2. Background adenomas are present (4 at colonoscopy - 2 small, one 10 mm, one 40 mm) 3. Please order CEA level and CT imaging (chest/abdomen/pelvis) prior to treatment 4. Ancillary studies: a. DNA mismatch repair enzymes intact by immunohistochemistry b. See comment and synoptic sections C) COLON, RANDOM, BIOPSY: 1. Normal colonic mucosa 2. Negative for microscopic, active, and chronic colitis D) COLON, DESCENDING, POLYPECTOMY: 1. Tubulovillous adenoma with high grade dysplasia consistent with advanced adenoma 2. Negative for malignancy 3. Per the colonoscopy report: a. Polyp size: 30 mm b. Resection: Complete c. Retrieval: Complete Status: Acute Plan - reviewed plan of care with son Ranjit by phone: he has information for medical guardianship given persistent self-neglect and ETOH overuse - continue therapies and electrolyte replacement - patient refusing any sort of transitional care, would be willing to consider HH if appropriate Subjective Date Seen: 12/24/23 Interval history: Simona was admitted to the hospital on 12/22 after being found down at home by son, weak and confused. She was noted to have significant diarrhea with h/o C-Diff; Vancomycin empirically restarted and repeat C-Diff positive. Patient also noted to have severe hypokalemia, hypocalcemia, hypomagnesemia, hypophosphatemia, and ETOH of 0.37. Last drink sometime on 12/22. On CIWA, no evidence of withdrawal at this time. Simona states that she understands the importance of ETOH cessation and the risks of continued drinking. Per family, she has not been honest about the amount she's drinking daily. She is overdue for f/u with Dr. Gallo for her colon cancer (diagnosed 06/2023). Exam Narrative: Exam Narrative: GEN: Alert and sitting up in bed eating breakfast, thin and appears chronically ill HEENT: EOMIs bilaterally, no scleral icterus CV: RRR, No concerning murmurs R: LCTA bilaterally without concerning wheezing, rales, or rhonchi Ext: thin, ulnar deviation of fingers bilaterally, no edema Skin: No concerning skin lesions or rashes on exposed skin Neuro: Nonfocal Psych: Appropriate Const: Vital Signs, click to edit/add: Vital Signs - 24 hr 12/23/23 11:00 12/23/23 11:30 12/23/23 15:00 Temperature 98 F 98 F Pulse Rate Pulse Rate [Right Radial] 83 83 Respiratory Rate 16 16 Blood Pressure [Ri ght Arm] 148/101 H 140/101 H Pulse Oximetry 94 94 98 Oxygen Delivery Me thod Room Air Room Air 12/23/23 15:00 12/23/23 15:00 12/23/23 15:00 Temperature 97.2 F L Pulse Rate Pulse Rate [Right Radial] 64 64 Respiratory Rate 16 16 16 Blood Pressure [Ri ght Arm] 132/93 H Pulse Oximetry 98 98 Oxygen Delivery Me thod Room Air Room Air 12/23/23 15:00 12/23/23 16:27 12/23/23 19:00 Temperature 97.2 F L 97.7 F Pulse Rate 76 Pulse Rate [Right Radial] 64 81 Respiratory Rate 16 18 Blood Pressure [Ri ght Arm] 132/93 H 134/98 H Pulse Oximetry 98 94 Oxygen Delivery Me thod Room Air Room Air 12/23/23 19:00 12/23/23 23:00 12/23/23 23:00 Temperature 97.7 F Pulse Rate 70 Pulse Rate [Right Radial] 81 Respiratory Rate 18 Blood Pressure [Ri ght Arm] 134/98 H Pulse Oximetry 94 96 Oxygen Delivery Me thod Room Air 12/23/23 23:00 12/23/23 23:00 12/23/23 23:00 Temperature 98.6 F Pulse Rate Pulse Rate [Right Radial] 82 82 Respiratory Rate 17 17 17 Blood Pressure [Ri ght Arm] 123/88 Pulse Oximetry 96 96 Oxygen Delivery Me thod Room Air Room Air 12/23/23 23:00 12/24/23 03:00 12/24/23 08:26 Temperature 98.6 F 97.6 F 98 F Pulse Rate Pulse Rate [Right Radial] 82 82 89 Respiratory Rate 17 14 18 Blood Pressure [Ri ght Arm] 123/88 133/94 H 141/99 H Pulse Oximetry 96 95 98 Oxygen Delivery Me thod Room Air Room Air Room Air Labs Labs: Laboratory Results - last 24 hr 12/22/23 12/23/23 12/23/23 17:48 16:03 19:29 WBC RBC Hgb Hct MCV MCH MCHC Plt Count VBG pH VBG pCO2 VBG pO2 VBG HCO3 Sodium 134 L Potassium 3.3 L Chloride 95 L Carbon Dioxide 29 Anion Gap 10 BUN 5 L Creatinine 0.4 L Estimated Creat Clear 48.98 Estimated GFR 111 Glucose 195 H Lactate 4.7 H* 3.1 H Calcium 7.8 L Ionized Calcium Sharyn Phosphorus Magnesium Total Bilirubin Direct Bilirubin GGT AST ALT Alkaline Phosphatase C-Reactive Protein Total Protein Albumin Stl C. diff Tox B Gene POSITIVE A* Stl C. diff [id number] Presumptive Negative 12/24/23 05:42 WBC 3.41 L RBC 2.90 L Hgb 10.5 L Hct 31.2 L MCV 108 H MCH 36 H MCHC 34 Plt Count 128 L VBG pH 7.550 H VBG pCO2 37 L VBG pO2 64.9 H VBG HCO3 33 H Sodium 139 Potassium 3.4 L Chloride 103 Carbon Dioxide 33 H Anion Gap 3 L BUN 3 L Creatinine 0.4 L Estimated Creat Clear 50.14 Estimated GFR 111 Glucose 135 H Lactate Calcium 7.4 L Ionized Calcium Sharyn 0.98 L Phosphorus 0.8 L* Magnesium 1.3 L Total Bilirubin 1.2 Direct Bilirubin 0.2 GGT 220 H AST 95 H ALT 60 H Alkaline Phosphatase 83 C-Reactive Protein < 0.5 L Total Protein 6.2 Albumin 3.3 Stl C. diff Tox B Gene Stl C. diff [id number]
[2023-12-24] MEDS: THIAMINE 250 MG in 0.9 % SODIUM CHLORIDE 100 ml 100 ML 100 MG IVPB (10:38)
[2023-12-24] MEDS: SODIUM CHLORIDE 0.9 % (FLUSH) 10 ML SYRINGE 5 ML IVF ×2 (10:39→20:58)
[2023-12-24] MEDS: POTASSIUM PHOS/SODIUM PHOS 250 MG TABLET PO ×3 (14:16→20:57)
[2023-12-24] MEDS: NICOTINE 14 mg PATCH 1 PATCH TOPICAL (14:17)
[2023-12-24] MEDS: THIAMINE 250 MG in 0.9 % SODIUM CHLORIDE 100 ml 100 ML 200 MG IVPB (16:02)
[2023-12-24] MEDS: ROSUVASTATIN CALCIUM 10 MG TABLET 20 MG PO (17:45)
[2023-12-24] MEDS: ENOXAPARIN 30 MG/0.3ML INJ SUBCUT (17:45)
--- NOTE | 2023-12-24 20:01 | PC.NURSE ---
shift note: vss stable. ciwa 1 x3. Pt up sba/cane. pt had small loose BM x4.
[2023-12-24] MEDS: ACETAMINOPHEN 325 MG TABLET 650 MG PO (20:57)
[2023-12-24] MEDS: GABAPENTIN 300 MG CAPSULE PO (20:57)
[2023-12-25] VITALS (11 sets, daily range): BP systolic 116–148; BP diastolic 75–105; PULSE 66–91; RESP 16–20; TEMP 36.2–37.2; O2SAT 95–98
[2023-12-25 02:33] LABS: Adenovirus PCR Not Detected; Astrovirus PCR Not Detected; Campylobacter PCR Not Detected; Cryptosporidium PCR Not Detected; Cyclospora cayetanensis PCR Not Detected; Entamoeba histolytica PCR Not Detected; Enteroaggregative E coli PCR Not Detected; Enteropathogenic E coli PCR Not Detected; Enterotoxigenic E coli PCR Not Detected; Giardia lamblia PCR Not Detected; Norovirus Gi/GII PCR Not Detected; Plesiomonas shig PCR Not Detected; Rotavirus A PCR Not Detected; Salmonella PCR Not Detected; Sapovirus PCR Not Detected; Shiga toxin E coli PCR Not Detected; Shigella/Enteroinvasive E coli Not Detected; Vibrio PCR Not Detected; Vibrio cholerae PCR Not Detected; Yersinia enterocolitica PCR Not Detected
--- NOTE | 2023-12-25 06:33 | PC.NURSE ---
End of shift [id number]: A&O. Hypertensive VS otherwise stable. Pt had x2 loose stool on this shift. SBA w/ cane. CIWAS unremarkable. Appeared to rest comfortably overnight.
[2023-12-25 06:56] LABS: HCO3 VBG 32 mmol/L (21-28); Ionized Calcium* 1.05 mmol/L (1.11-1.30); PCO2 VBG 39 mmHG (40-50); PO2 VBG 43.7 mmHG (25-47); pH VBG 7.526 (7.32-7.43)
[2023-12-25 07:14] LABS: Hematocrit 30.2 % (33.0-51.0); Mean Corpuscular HGB Conc 33 gm/dL (32-36); Mean Corpuscular Hemoglobin 37 pg (26-34); Mean Corpuscular Volume 111 fL (80-100); Platelet Count* 114 K/uL (140-440); Red Blood Count 2.73 m/uL (4.00-5.20); White Blood Count* 2.96 K/uL (4.50-11.00)
[2023-12-25 07:19] LABS: Slide Review Reflex No
[2023-12-25 07:20] LABS: Chloride* 103 mmol/L (96-114)
[2023-12-25 07:21] LABS: Albumin* 3.3 g/dL (3.3-5.0); Sodium* 138 mmol/L (135-149)
[2023-12-25 07:22] LABS: Potassium* 3.5 mmol/L (3.6-5.1)
[2023-12-25 07:23] LABS: Creatinine* 0.4 mg/dL (0.5-1.5); Est. Creatinine Clearance* 49.48; Estimated Glomerular Filt Rate 111 ml/min
[2023-12-25 07:24] LABS: Alkaline Phosphatase* 84 U/L (40-150); Anion Gap 3 mEq/L (7-15); Aspartate Amino Transferase* 88 U/L (12-35); Bilirubin Direct* 0.2 mg/dL (0.0-0.5); Bilirubin Total* 0.9 mg/dL (0.1-1.5); Blood Urea Nitrogen* 4 mg/dL (7-30); Carbon Dioxide* 32 mmol/L (20-32); Gamma Glutamyl Transpeptidase* 229 U/L (8-55); Glucose* 93 mg/dL (60-115); Total Protein* 6.1 g/dL (6.0-8.3)
[2023-12-25 07:25] LABS: Alanine Aminotransferase* 57 U/L (4-35); Calcium* 8.2 mg/dL (8.4-10.6)
[2023-12-25 07:27] LABS: C Reactive Protein* 0.6 mg/dL (0.5-1.0)
[2023-12-25] MEDS: POTASSIUM PHOS/SODIUM PHOS 250 MG TABLET PO ×4 (09:04→21:07)
[2023-12-25] MEDS: MAGNESIUM OXIDE 400 MG TABLET 800 MG PO (09:04)
[2023-12-25] MEDS: THIAMINE 100 MG TABLET PO (09:04)
[2023-12-25] MEDS: MULTIVITAMIN/MINERALS 1 TABLET 1 TAB PO (09:04)
[2023-12-25] MEDS: VANCOMYCIN 125 MG CAPSULE PO ×4 (09:04→21:07)
[2023-12-25] MEDS: SERTRALINE 50 MG TABLET PO (09:04)
[2023-12-25] MEDS: LOSARTAN POTASSIUM 50 MG TABLET 25 MG PO (09:05)
[2023-12-25] MEDS: ASPIRIN 81 MG TABLET EC PO (09:05)
[2023-12-25] MEDS: POTASSIUM CHLORIDE 10 MEQ CAPSULE ER 40 MEQ PO ×2 (09:05→21:07)
[2023-12-25] MEDS: FOLIC ACID 1 MG TABLET PO (09:05)
[2023-12-25] MEDS: METOPROLOL TARTRATE 25 MG TABLET 50 MG PO ×2 (09:05→21:07)
[2023-12-25] MEDS: OMEPRAZOLE 20 MG CAPSULE DR 40 MG PO (09:06)
[2023-12-25] MEDS: SODIUM CHLORIDE 0.9 % (FLUSH) 10 ML SYRINGE 5 ML IVF ×2 (09:06→21:08)
[2023-12-25] MEDS: CALCIUM GLUC 1,000MG/50 ML 1,000 MG/50 ML BAG 100 MG IVPB (11:36)
[2023-12-25] MEDS: MAGNESIUM IV 2 GM/50 ML PIGGYBACK IVPB (12:08)
[2023-12-25] MEDS: NICOTINE 14 mg PATCH 1 PATCH TOPICAL (14:07)
--- NOTE | 2023-12-25 14:21 | PC.SOCIAL ---
Addendum entered by BRANDY Montes 12/25/23 16:43: Discharge planning: abrasive worker met with pt in her room. Pt states that she wants to go back home after discharge. Pt stated that she might be interested in continuing PT when she discharges, if recommended. Pt stated that she is in a lease until September of 2024 and will not be able to move anywhere until that time, and she is not interested in moving anywhere else either. abrasive worker spoke with provider on staff about writing a letter of recommendation for guardianship, as requested by [facility]. abrasive worker and provider will touch base on this case again tomorrow morning after rounds. Social work to follow-up as needed. Original Note: Discharge planning: abrasive worker spoke with Bambi Koroma from [facility] today. Bambi was wondering if this neonatal social worker could talk to the current provider on staff about writing a more detailed letter in recommendation of guardianship for the pt. abrasive worker will follow-up with the provider on staff and Bambi Koroma. Social work to follow-up as needed.
--- NOTE | 2023-12-25 17:04 | P.IMPN_ITS ---
Progress Note: A&P Assessment and plan (1) Aspiration pneumonia: Problem details: - patchy areas of alveolar consolidation in the RLL (see body of read, not impression) noted on admission CT of A/P - single view chest xray clear - normal WBC and procalcitonin, stable on RA, no clinical evidence of PNA, continue to closely monitor - no antibiotics needed at this time, follow Status: Acute (2) Alcoholic liver disease: Problem details: - stigmata: severe fatty liver, macrocytic anemia, thrombocytopenia, elevated INR and bilirubin. Normal creatinine, no ascites. MELD 9.0 11/2023 Status: Acute (3) Alcohol dependence with acute alcoholic intoxication with complication: Problem details: - Admit etoh 0.37% - will manage the intoxication and possible withdrawal in coming days with supportive meds, CIWA scale, phenobarbital, benzos, atarax Status: Acute (4) Multiple rib fractures: Problem details: - acute/subacute. seen at last admission - evidence of poor self care and frequent falls Status: Acute (5) Colitis: Problem details: - + C-diff, on oral Vancomycin - possibly related to known malignancy Status: Acute (6) Acute hypokalemia: Problem details: - improving, tolerating oral replacement - control diarrhea, hydrate Status: Acute (7) Hypomagnesemia: Problem details: -bumps of IV replacement, oral when tolerating PO (refusing p.o. given diarrhea) -control diarrhea -hydrate Status: Acute (8) Colon cancer: Problem details: - diagnosed on 06/2023 colonoscopy (path below) - patient aware, sees Dr. Gallo for followup A) COLON, CECUM, POLYPECTOMY: 1. Tubular adenomas (4) 2. Negative for high grade dysplasia 3. Per the colonoscopy report: a. Polyp size: 5-8 mm b. Resection: Complete c. Retrieval: Complete B) COLON, ASCENDING, POLYPS, POLYPECTOMIES: 1. Adenocarcinoma, low grade (moderately differentiated) 2. Background adenomas are present (4 at colonoscopy - 2 small, one 10 mm, one 40 mm) 3. Please order CEA level and CT imaging (chest/abdomen/pelvis) prior to treatment 4. Ancillary studies: a. DNA mismatch repair enzymes intact by immunohistochemistry b. See comment and synoptic sections C) COLON, RANDOM, BIOPSY: 1. Normal colonic mucosa 2. Negative for microscopic, active, and chronic colitis D) COLON, DESCENDING, POLYPECTOMY: 1. Tubulovillous adenoma with high grade dysplasia consistent with advanced adenoma 2. Negative for malignancy 3. Per the colonoscopy report: a. Polyp size: 30 mm b. Resection: Complete c. Retrieval: Complete Status: Acute Plan - home with close follow-up when electrolytes have normalized - recommend continued alcohol cessation upon discharge - County aware of patient's status Subjective Date Seen: 12/25/23 Interval history: Simona was admitted to the hospital on 12/22 after being found down at home by son, weak and confused. She was noted to have significant diarrhea with h/o C-Diff; Vancomycin empirically restarted and repeat C-Diff positive. Simona continues to have diarrhea approximately once/hour, per her report. She continues to have electrolyte disturbances (hypokalemia, hypocalcemia, hypomagnesemia, hypophosphatemia). No evidence of ETOH withdrawal - ETOH level on arrival 0.37, last drink 12/22. Simona has no significant concerns for hospitalist team this morning; does state that she will remain sober upon hospital discharge. She has intermittently refused therapies and cares during stay. She is overdue for f/u with Dr. Gallo for her colon cancer (diagnosed 06/2023). PCP is Dr. Cruz locally. Exam Narrative: Exam Narrative: GEN: Alert and sitting at edge of bed, appears thin and chronically ill but nontoxic HEENT: EOMIs bilaterally, no scleral icterus CV: RRR, No concerning murmurs R: LCTA bilaterally without concerning wheezing Ext: wwp, no concerning edema Neuro: Nonfocal Psych: Appropriate Const: Vital Signs, click to edit/add: Vital Signs - 24 hr 12/24/23 21:01 12/24/23 23:45 12/24/23 23:46 Temperature 98.9 F 98.2 F 98.2 F Pulse Rate Pulse Rate [Pulse Oximeter] 83 83 Pulse Rate [Right Radial] 90 90 Respiratory Rate 16 18 18 Blood Pressure [Ri ght Arm] 138/103 H 133/101 H 133/101 H Pulse Oximetry 97 95 95 Oxygen Delivery Me thod Room Air Room Air Room Air 12/24/23 23:53 12/24/23 23:56 12/25/23 00:28 Temperature Pulse Rate 72 Pulse Rate [Pulse Oximeter] Pulse Rate [Right Radial] Respiratory Rate 18 Blood Pressure [Ri ght Arm] Pulse Oximetry 95 95 Oxygen Delivery Me od Room Air 12/25/23 03:26 12/25/23 03:32 12/25/23 07:00 Temperature 98.3 F 98.3 F Pulse Rate 69 Pulse Rate [Pulse Oximeter] 91 91 Pulse Rate [Right Radial] 90 Respiratory Rate 16 16 Blood Pressure [Ri ght Arm] 148/105 H 148/105 H Pulse Oximetry 98 98 Oxygen Delivery [facility] Room Air Room Air 12/25/23 07:00 12/25/23 07:00 12/25/23 07:00 Temperature 97.7 F Pulse Rate Pulse Rate [Pulse Oximeter] 82 Pulse Rate [Right Radial] Respiratory Rate 20 Blood Pressure [Ri ght Arm] 143/91 H Pulse Oximetry 96 96 96 Oxygen Delivery [facility] Room Air Room Air 12/25/23 07:00 12/25/23 07:00 12/25/23 11:00 Temperature 97.7 F 98.9 F Pulse Rate Pulse Rate [Pulse Oximeter] 82 82 66 Pulse Rate [Right Radial] Respiratory Rate 20 20 18 Blood Pressure [Ri ght Arm] 143/91 H 116/75 Pulse Oximetry 96 98 Oxygen Delivery [facility] Room Air Room Air 12/25/23 11:00 12/25/23 15:00 12/25/23 15:00 Temperature 98.9 F Pulse Rate Pulse Rate [Pulse Oximeter] 66 66 Pulse Rate [Right Radial] Respiratory Rate 18 18 Blood Pressure [Ri ght Arm] 116/75 Pulse Oximetry 98 97 Oxygen Delivery [facility] Room Air Room Air 12/25/23 15:00 12/25/23 15:00 Temperature 97.2 F L 97.2 F L Pulse Rate Pulse Rate [Pulse Oximeter] 82 82 Pulse Rate [Right Radial] Respiratory Rate 20 20 Blood Pressure [Ri ght Arm] 145/91 H 145/91 H Pulse Oximetry 98 98 Oxygen Delivery [facility] Room Air Room Air Labs Labs: Laboratory Results - last 24 hr 12/22/23 12/25/23 12/25/23 17:48 05:45 05:45 WBC 2.96 L RBC 2.73 L Hgb 10.0 L Hct 30.2 L MCV 111 H MCH 37 H MCHC 33 Plt Count 114 L VBG pH 7.526 H VBG pCO2 39 L VBG pO2 43.7 VBG HCO3 32 H Sodium 138 Potassium 3.5 L Chloride 103 Carbon Dioxide 32 Anion Gap 3 L BUN 4 L Creatinine 0.4 L Estimated Creat Clear 49.48 Estimated GFR 111 Glucose 93 Calcium 8.2 L Ionized Calcium Sharyn 1.05 L Phosphorus 2.0 L 2.0 L Magnesium 1.0 L Total Bilirubin 0.9 Direct Bilirubin 0.2 GGT 229 H AST 88 H ALT 57 H Alkaline Phosphatase 84 C-Reactive Protein 0.6 Total Protein 6.1 Albumin 3.3 Stl C. cayetanensis PCR Not Detected Stool Rotavirus A PCR Not Detected Stool Adenovirus (PCR) Not Detected Stool Astrovirus (PCR) Not Detected Stool Campylobacter PCR Not Detected Stool Cryptosporidium PCR Not Detected Stl E.coli Shiga Tox PCR Not Detected Stool E coli O157 PCR N/A Stl Enterotoxigenic E PCR Not Detected Stool EPEC (PCR) Not Detected Stool EAEC (PCR) Not Detected Stl E. histolytica PCR Not Detected Stool Giardia Lamblia PCR Not Detected Stl P. shigelloides PCR Not Detected Stool Salmonella PCR Not Detected Stool Sapovirus (PCR) Not Detected Stl Shigella/EIEC PCR Not Detected St Y.enterocolitica PCR Not Detected Stool Vibrio (PCR) Not Detected Stl Vibrio cholerae PCR Not Detected Stl Norovirus GI/GII PCR Not Detected
[2023-12-25] MEDS: ROSUVASTATIN CALCIUM 10 MG TABLET 20 MG PO (17:44)
[2023-12-25] MEDS: ENOXAPARIN 30 MG/0.3ML INJ SUBCUT (17:44)
--- NOTE | 2023-12-25 17:51 | PC.NURSE ---
End of Shift Note: Patient has been up most of this shift. Early today she was assisted to take a shower. She is tolerating her diet. Has only been to the BR a couple of times and has not complained of any loose stools. Her son Ranjit was update today. He was anticipating that she would be discharge today. Explain to him that her lab levels were still a little off and she is receiving medications and will have them check tomorrow. He states if she is discharged tomorrow he won't be able to pick her up until after 4. He said he will be stopping in to see her sometime tonight if I could update her that he will be by and to have her call him once her phone is charged. Gave message to patient. Will continue to monitor.
[2023-12-25] MEDS: ACETAMINOPHEN 325 MG TABLET 650 MG PO (19:30)
[2023-12-25] MEDS: GABAPENTIN 300 MG CAPSULE PO (21:05)
[2023-12-26 03:16] VITALS: RESP 18
[2023-12-26 03:17] VITALS: RESP 18
[2023-12-26 06:33] LABS: Hematocrit 32.2 % (33.0-51.0); Hemoglobin* 10.6 gm/dL (12.0-16.0); Mean Corpuscular HGB Conc 33 gm/dL (32-36); Mean Corpuscular Hemoglobin 37 pg (26-34); Mean Corpuscular Volume 111 fL (80-100); Platelet Count* 136 K/uL (140-440); Red Blood Count 2.89 m/uL (4.00-5.20); White Blood Count* 3.39 K/uL (4.50-11.00)
[2023-12-26 06:34] LABS: Slide Review Reflex No
--- NOTE | 2023-12-26 06:42 | PC.NURSE ---
End of shift [id number]: A&O. Hypertensive VS otherwise stable. Pt reported no loose stools overnight. Reported a headache. Tylenol given with stated relief. Pt appeared to rest comfortable overnight.
[2023-12-26 06:53] LABS: Albumin* 3.7 g/dL (3.3-5.0); Chloride* 102 mmol/L (96-114)
[2023-12-26 06:54] LABS: Sodium* 139 mmol/L (135-149)
[2023-12-26 06:56] LABS: Anion Gap 8 mEq/L (7-15); Bilirubin Direct* 0.4 mg/dL (0.0-0.5); Bilirubin Total* 0.7 mg/dL (0.1-1.5); Carbon Dioxide* 29 mmol/L (20-32); Creatinine* 0.4 mg/dL (0.5-1.5); Est. Creatinine Clearance* 48.78; Estimated Glomerular Filt Rate 111 ml/min
[2023-12-26 06:57] LABS: Alanine Aminotransferase* 55 U/L (4-35); Alkaline Phosphatase* 76 U/L (40-150); Aspartate Amino Transferase* 79 U/L (12-35); Blood Urea Nitrogen* 12 mg/dL (7-30); Calcium* 8.5 mg/dL (8.4-10.6); Glucose* 93 mg/dL (60-115); Magnesium* 1.3 mg/dL (1.5-2.6); Phosphorus* 4.5 mg/dL (2.5-4.5); Total Protein* 6.8 g/dL (6.0-8.3)
[2023-12-26 07:00] VITALS: BP 129/94; PULSE 76; RESP 18; TEMP 37; O2SAT 95
[2023-12-26] MEDS: MAGNESIUM OXIDE 400 MG TABLET 800 MG PO (09:47)
[2023-12-26] MEDS: POTASSIUM CHLORIDE 10 MEQ CAPSULE ER 40 MEQ PO (09:47)
[2023-12-26] MEDS: POTASSIUM PHOS/SODIUM PHOS 250 MG TABLET PO ×2 (09:47→12:34)
[2023-12-26] MEDS: OMEPRAZOLE 20 MG CAPSULE DR 40 MG PO (09:48)
[2023-12-26] MEDS: ASPIRIN 81 MG TABLET EC PO (09:48)
[2023-12-26] MEDS: METOPROLOL TARTRATE 25 MG TABLET 50 MG PO (09:49)
[2023-12-26] MEDS: SERTRALINE 50 MG TABLET PO (09:49)
[2023-12-26] MEDS: VANCOMYCIN 125 MG CAPSULE PO ×2 (09:49→12:34)
[2023-12-26] MEDS: LOSARTAN POTASSIUM 50 MG TABLET 25 MG PO (09:49)
[2023-12-26] MEDS: MULTIVITAMIN/MINERALS 1 TABLET 1 TAB PO (09:49)
[2023-12-26] MEDS: THIAMINE 100 MG TABLET PO (09:49)
[2023-12-26] MEDS: FOLIC ACID 1 MG TABLET PO (09:49)
[2023-12-26] MEDS: CALCIUM GLUC 1,000MG/50 ML 1,000 MG/50 ML BAG 100 MG IVPB (09:50)
[2023-12-26] MEDS: SODIUM CHLORIDE 0.9 % (FLUSH) 10 ML SYRINGE 5 ML IVF (09:58)
--- NOTE | 2023-12-26 10:34 | PM.DS1 ---
DS: Providers Provider Date Seen: 12/26/23 Date of admission: 12/22/23 17:38 Primary care physician: Not a Local Provider Admitting Clinician: Jennifer Ramírez MD Consults: PT, OT, Nutrition, SW Attending Physician on discharge: Astrid Valentino MD Date of Discharge: 12/26/23 DS: Diagnosis Discharge Diagnosis (1) Colon cancer: Status: Acute Problem details: - diagnosed on 06/2023 colonoscopy (path below) - patient aware, sees Dr. Gallo for followup A) COLON, CECUM, POLYPECTOMY: 1. Tubular adenomas (4) 2. Negative for high grade dysplasia 3. Per the colonoscopy report: a. Polyp size: 5-8 mm b. Resection: Complete c. Retrieval: Complete B) COLON, ASCENDING, POLYPS, POLYPECTOMIES: 1. Adenocarcinoma, low grade (moderately differentiated) 2. Background adenomas are present (4 at colonoscopy - 2 small, one 10 mm, one 40 mm) 3. Please order CEA level and CT imaging (chest/abdomen/pelvis) prior to treatment 4. Ancillary studies: a. DNA mismatch repair enzymes intact by immunohistochemistry b. See comment and synoptic sections C) COLON, RANDOM, BIOPSY: 1. Normal colonic mucosa 2. Negative for microscopic, active, and chronic colitis D) COLON, DESCENDING, POLYPECTOMY: 1. Tubulovillous adenoma with high grade dysplasia consistent with advanced adenoma 2. Negative for malignancy 3. Per the colonoscopy report: a. Polyp size: 30 mm b. Resection: Complete c. Retrieval: Complete (2) Alcohol dependence with acute alcoholic intoxication with complication: Status: Acute Problem details: - Admit etoh 0.37% - no evidence of withdrawal during stay (3) Alcoholic liver disease: Status: Acute Problem details: - stigmata: severe fatty liver, macrocytic anemia, pancytopenia, elevated INR and bilirubin. Normal creatinine, no ascites. MELD 9.0 11/2023 (4) Colitis: Status: Acute Problem details: - + recurrent C-diff, on oral Vancomycin, will continue upon d/c - possibly related to known malignancy (5) Acute hypokalemia: Status: Acute Problem details: - treated with oral potassium during stay with improvement (6) Hypomagnesemia: Status: Acute Problem details: - replaced during stay DS: Summary Hospital Course Hospital Course: Simona was admitted to the hospital on 12/22 after falling at home in the setting of acute ETOH intoxication and recurrent C-Diff. She was treated with Vancomycin and her diarrhea improved. Electrolyte imbalances treated with supplementation (both oral and IV), and close to baseline on hospital day 4. There was no evidence of ETOH withdrawal during stay. Other notable history above with details. Given patient's ETOH history and poor self care when drinking, son is working with the County to discuss guardianship. When sober, patient has a MOCA of 26/30 with good disease insight; verbalizes risk of continued drinking on discharge and plans to remain abstinent from ETOH. Reviewed discharge plan of care with son and PCP (Dr. Cruz). Status at Discharge Functional status at discharge: independent ambulation Overall status at discharge: patient is progressing back to baseline Time Spent with Patient Time attestation: Total time spent providing and/or coordinating discharge services: Time spent: Greater than 30 minutes Specific discharge activities: Updates to PCP and son, discharge medication reconciliation Exam Narrative: Exam Narrative: GEN: Alert and oriented, sitting up in bed, appears thin and chronically ill HEENT: EOMIs bilaterally, no scleral icterus CV: RRR, No concerning murmurs R: LCTA bilaterally without concerning wheezing, air movement adequate Ext: wwp, no concerning edema Skin: Bruising under L eye (from admission) is stable, no other concerning skin findings Neuro: Nonfocal Psych: Appropriate Const: Vital Signs, click to edit/add: Vital Signs - 24 hr 12/25/23 11:00 12/25/23 11:00 12/25/23 15:00 Temperature 98.9 F 98.9 F Pulse Rate [Pulse Oximeter] 66 66 Respiratory Rate 18 18 Blood Pressure [Ri ght Arm] 116/75 116/75 Pulse Oximetry 98 98 97 Oxygen Delivery Me thod Room Air Room Air Room Air 12/25/23 15:00 12/25/23 15:00 12/25/23 15:00 Temperature 97.2 F L 97.2 F L Pulse Rate [Pulse Oximeter] 66 82 82 Respiratory Rate 18 20 20 Blood Pressure [Ri ght Arm] 145/91 H 145/91 H Pulse Oximetry 98 98 Oxygen Delivery Me thod Room Air Room Air 12/25/23 19:23 12/25/23 19:25 12/25/23 23:10 Temperature 98.6 F 98.6 F 97.4 F L Pulse Rate [Pulse Oximeter] 80 80 74 Respiratory Rate 18 18 18 Blood Pressure [Ri ght Arm] 128/98 H 128/98 H 133/90 H Pulse Oximetry 95 95 96 Oxygen Delivery Me thod Room Air Room Air Room Air 12/25/23 23:11 12/25/23 23:12 12/26/23 03:16 Temperature 97.4 F L Pulse Rate [Pulse Oximeter] 74 Respiratory Rate 18 18 18 Blood Pressure [Ri ght Arm] 133/90 H Pulse Oximetry 96 96 Oxygen Delivery Me thod Room Air Room Air 12/26/23 03:17 12/26/23 07:00 12/26/23 07:00 Temperature 98.6 F Pulse Rate [Pulse Oximeter] 76 76 Respiratory Rate 18 18 18 Blood Pressure [Ri ght Arm] 129/94 H Pulse Oximetry 95 Oxygen Delivery Me thod Room Air 12/26/23 07:00 Temperature Pulse Rate [Pulse Oximeter] Respiratory Rate 18 Blood Pressure [Ri ght Arm] Pulse Oximetry 95 Oxygen Delivery Me thod Room Air DS: Data Data Completed and Pending Completed studies during hospitalization: Procedures Detoxification Services for Substance Abuse Treatment (10/28/23) Labs on day of discharge: Labs from last 24 hours 12/26/23 05:47 WBC 3.39 L RBC 2.89 L Hgb 10.6 L Hct 32.2 L MCV 111 H MCH 37 H MCHC 33 Plt Count 136 L Sodium 139 Potassium 4.0 Chloride 102 Carbon Dioxide 29 Anion Gap 8 BUN 12 Creatinine 0.4 L Estimated Creat Clear 48.78 Estimated GFR 111 Glucose 93 Calcium 8.5 Ionized Calcium Sharyn 1.10 L Phosphorus 4.5 Magnesium 1.3 L Total Bilirubin 0.7 Direct Bilirubin 0.4 AST 79 H ALT 55 H Alkaline Phosphatase 76 Total Protein 6.8 Albumin 3.7 Preliminary micro results at discharge 12/22/23 18:58 Blood Culture - Preliminary Blood NO GROWTH AFTER 72 HOURS 12/22/23 18:58 Blood Culture - Preliminary Blood NO GROWTH AFTER 72 HOURS 12/22/23 17:48 Stool Culture - Preliminary Stool Discharge Plan Discharge Disposition: Home, Self-Care Date of Admission: 12/22/23 17:38 Attending Provider on Discharge: Astrid Valentino Primary Care Provider: Provider,Not a Local Condition: Improved Anticipated Discharge Date/Time: 12/26/23 10:16 Discharge Medications: New vancomycin 125 mg Capsule 125 mg PO QID 10 Days Qty: 40 0RF thiamine mononitrate (vit B1) [Vitamin B-1 (mononitrate)] 100 mg Tablet 100 mg PO DAILY Qty: 30 0RF Continued aspirin 81 mg tablet,delayed release (DR/EC) 81 mg PO DAILY dronabinol 2.5 mg capsule 2.5 mg PO BID pantoprazole 40 mg tablet,delayed release (DR/EC) 40 mg PO DAILY sertraline 50 mg tablet 50 mg PO DAILY rosuvastatin 20 mg tablet 20 mg PO QPM magnesium oxide 400 mg (241.3 mg magnesium) tablet 800 mg PO BID losartan 25 mg tablet 25 mg PO DAILY albuterol sulfate [Ventolin HFA] 90 mcg/actuation HFA aerosol inhaler 2 inh inhalation Q6H PRN loperamide [Imodium A-D] 2 mg capsule 2 mg PO Q6H PRN vitamin B complex-folic acid 0.4 mg Tablet 1 tab PO DAILY Qty: 90 0RF nicotine 14 mg/24 hr Patch 24 Hour 1 patch topical Q24H Qty: 15 0RF metoprolol tartrate 25 mg Tablet 50 mg PO BID Qty: 120 0RF potassium chloride 20 mEq tablet extended release 40 meq PO BID Qty: 120 0RF Discontinued nitroglycerin 0.4 mg tablet, sublingual 0.4 - 0.8 mg sublingual Q5M polyethylene glycol 3350 [ClearLax] 17 gram/dose powder 17 g PO BID Discharge Orders: Discharge Order (Routine); Ordered 12/26/23 Ordered By: Astrid Valentino Patient Education: Alcohol Dependence (DC) Additional Instructions: It is IMPERATIVE that you remain abstinent from alcohol. Your body is showing signs of severe malnutrition and damage from chronic alcohol use. See Dr. Cruz for followup as scheduled. Continue your medication for C-diff (sent to [facility]) and stay on your other home medications. Activity Level: No strenuous activity Discharge Diet: Regular and High Protein/High Calorie Follow Up Appointments: Provider,Not a Local [Primary Care Provider] - (Please make appt with Dr. Cruz for patient - hospital discharge f/u next week. ) Molly Cruz DO [Staff Physician] - 12/31/23 11:25 am ([facility] for follow-up.) Forms: [employer] Info Instructions
--- NOTE | 2023-12-26 11:36 | PC.SOCIAL ---
Discharge planning: gathering worker informed Bambi Koroma at [facility] that the provider will not be writing a letter recommending guardianship for the pt, as the provider states the pt is able to make her own decisions and is aware of good and bad decisions and the outcomes they may have. gathering worker also informed Bambi that the pt will be discharging home today. Social work to follow-up as needed.
--- NOTE | 2023-12-26 12:55 | PC.NURSE ---
Discharge: Patient is alert and oriented, CIWA scores are 0. Patient denies N/V/SOB or pain. Patient denies any diarrhea. Tolerating a reg. diet. Patient's VSS and sating 96% on RA. Patient's IV removed intact, and is awaiting her son to bring her fresh clothes and he will also be her ride home around 1600. Patient will be discharged to home accompanied by son. Discharge instructions given and patient verbalized understanding of instructions. Patients belongings sheet signed.
--- NOTE | 2023-12-26 19:36 | PC.NURSE ---
Patient discharged at 1625
--- OUTSIDE RECORDS SUMMARY | 2023-12-31 13:57 | XMS_ITS | Clinical Summary ---
Author Name Unknown Organization [facility] Address [place], [place] [address] Care Team Providers Care Ibm Bpm Developer Name Role Phone [facility] lAexi Keating RN Unavailable [phone] Kim Gallo MD Unavailable [phone] Pcp, No Primary Care Provider Unavailabl e Allergies Active Allergy Reactions Criticality Noted Date Comments Penicillins *Unknown 08/04/2022 Tolerated pip/tazo 07/2022 Medications Medication Sig Dispensed Refills Start Date End Date Status folic acid 1 mg tabletIndications:Al coholic ketoacidosis Take 1 Tablet (1 mg) by mouth once daily. 30 Tablet 0 08/28/2022 Active albuterol HFA (PRO-AIR; VENTOLIN; PROVENTIL) 90 mcg/actuation inhalerIndications:C entrilobular emphysema (HC) Inhale 1-2 Puffs by mouth every 4 hours if needed for Wheezing 1st choice. 0 12/28/2022 Active multivitamin chewIndications:Toba financial accounting manager use Chew 1 Tablet by mouth once daily. 90 Tablet 3 01/31/2023 Active potassium chloride (KLOR-CON M20) 20 mEq Extended-Release tabletIndications:Hy pokalemia Take 2 Tablets (40 mEq) by mouth two times daily with meals. 360 Tablet 1 01/31/2023 Active nitroglycerin (NITROSTAT) 0.4 mg sublingual tabletIndications:Co ronary artery disease, unspecified vessel or lesion type, unspecified whether angina present, unspecified whether [place] or transplanted heart Place 1-2 Tablets (0.4-0.8 mg) under the tongue every 5 minutes if needed for Chest Pain. 12 Tablet 3 01/31/2023 Active aspirin (ECOTRIN) 81 mg enteric coated tabletIndications:NS WILLIAM (non-ST elevated myocardial infarction) (HC) Take 1 Tablet (81 mg) by mouth once daily with a meal. 30 Tablet 0 07/16/2023 Active magnesium oxide (MAG-OX 400) 400 mg tabletIndications:Hy pomagnesemia Take 1 Tablet (400 mg) by mouth two times daily. 60 Tablet 0 07/16/2023 Active psyllium husk, with sugar, (METAMUCIL) 3.4 gram packetIndications:Di arrhea, unspecified type Mix 1 Packet in liquid then take by mouth two times daily. 30 Packet 0 07/16/2023 Active nicotine 14 mg/24 hr (NICODERM; HABITROL) 14 mg/24 hr patchIndications:Cig arette nicotine dependence with nicotine-induced disorder Apply 1 Patch on dry, clean, hairless skin once daily. 30 Patch 3 09/06/2023 Active metoprolol tartrate (LOPRESSOR) 25 mg tabletIndications:Co ronary artery disease, unspecified vessel or lesion type, unspecified whether angina present, unspecified whether [place] or transplanted heart TAKE 1/2 TABLET(12.5 MG) BY MOUTH TWICE DAILY 30 Tablet 0 10/13/2023 Active ondansetron (ZOFRAN ODT) [address] 4 mg on the tongue every 8 hours if needed. 0 12/06/2023 Active metroNIDAZOLE (FLAGYL) 500 mg tablet Take 500 mg by mouth. 0 12/06/2023 Active vancomycin (VANCOCIN) 125 mg capsule TAKE 1 CAPSULE BY MOUTH FOUR TIMES DAILY FOR 10 DAYS 0 12/26/2023 Active Vitamin B-1 100 mg tablet Take 100 mg by mouth once daily. 0 12/26/2023 Active losartan (COZAAR) 25 mg tabletIndications:St ress-induced cardiomyopathy,HTN (hypertension) Take 2 Tablets (50 mg) by mouth once daily. 180 Tablet 3 12/31/2023 Active sertraline (ZOLOFT) 50 mg tabletIndications:GA D (generalized anxiety disorder) Take 1 Tablet (50 mg) by mouth every morning for 7 days, THEN 2 Tablets (100 mg) every morning. 367 Tablet 0 12/31/2023 4 Active acamprosate (CAMPRAL) 333 mg tabletIndications:Al coholism, chronic (HC) Take 2 Tablets (666 mg) by mouth three times daily. 180 Tablet 2 12/31/2023 4 Active droNABinol (MARINOL) 2.5 mg capsuleIndications:M oderate malnutrition (HC) Take 1 Capsule (2.5 mg) by mouth once daily before a meal. 30 Capsule 2 12/31/2023 4 Active rosuvastatin (CRESTOR) 20 mg tabletIndications:Co ronary artery disease, unspecified vessel or lesion type, unspecified whether angina present, unspecified whether [place] or transplanted heart Take 1 Tablet (20 mg) by mouth at bedtime. 90 Tablet 1 01/31/2023 4 Discontinue d(*Med complete/Re gimen complete/[place] of care change) budesonide-formotero L (SYMBICORT) 80-4.5 mcg/actuation (80-4.5 mcg each actuation) inhalerIndications:C entrilobular emphysema (HC) Inhale 2 Puffs by mouth two times daily. 10.2 g 0 02/04/2023 4 Discontinue d(*Med complete/Re gimen complete/[place] of care change) losartan (COZAAR) 25 mg tabletIndications:St ress-induced cardiomyopathy,HTN (hypertension) Take 1 Tablet (25 mg) by mouth once daily. 30 Tablet 0 07/16/2023 4 Discontinue d(*Medicati on adjustment) sertraline (ZOLOFT) 50 mg tabletIndications:GA D (generalized anxiety disorder) Take 1 Tablet (50 mg) by mouth every morning. 30 Tablet 0 07/16/2023 4 Discontinue d(*Med complete/Re gimen complete/[place] of care change) pantoprazole (PROTONIX) 40 mg delayed-release tabletIndications:Al cohol abuse,Gastritis, presence of bleeding unspecified, unspecified chronicity, unspecified gastritis type Take 1 Tablet (40 mg) by mouth once daily before a meal. 30 Tablet 0 07/16/2023 4 Discontinue d(*Med complete/Re gimen complete/[place] of care change) droNABinol (MARINOL) 2.5 mg capsule Take 2.5 mg by mouth once daily before a meal. 0 10/01/2023 4 Discontinue d(Reorder (E-cancel not sent)) droNABinol (MARINOL) 2.5 mg capsule Take by mouth. 0 10/27/2023 4 Discontinue d(*Med complete/Re gimen complete/[place] of care change) aspirin (ECOTRIN) 81 mg enteric coated tablet Take by mouth. 0 10/27/2023 4 Discontinue d(*Med complete/Re gimen complete/[place] of care change) loperamide (IMODIUM) 2 mg capsule Take by mouth. 0 10/28/2023 4 Discontinue d(*Med complete/Re gimen complete/[place] of care change) losartan (COZAAR) 25 mg tablet Take by mouth. 0 10/27/2023 4 Discontinue d(*Med complete/Re gimen complete/[place] of care change) pantoprazole (PROTONIX) 20 mg tablet Take 40 mg by mouth. 0 10/27/2023 4 Discontinue d(*Med complete/Re gimen complete/[place] of care change) vancomycin (VANCOCIN) 125 mg capsule Take 125 mg by mouth four times daily. 0 12/26/2023 4 Discontinue d(*Med complete/Re gimen complete/[place] of care change) Active Problems Problem Noted Date Diagnosed Date Elevated TSH 12/31/2023 Generalized weakness 12/31/2023 Macrocytosis 12/31/2023 Syncope 12/31/2023 Multiple rib fractures 12/31/2023 Cardiomyopathy, unspecified type 12/31/2023 Primary adenocarcinoma of ascending colon 2022 Alcoholism, chronic 07/02/2023 Acute respiratory failure with hypoxemia 023 Prolonged Q-T interval on ECG 01/31/2023 Severe protein-calorie malnutrition 12/29/2022 MURALI (generalized anxiety disorder) 12/25/2022 Centrilobular emphysema 12/25/2022 Severe anemia 12/23/2022 Acute respiratory failure with hypercapnia 12/23 Alcoholic liver disease 12/23/2022 PEA (Pulseless electrical activity) (HC) arrest 12/23/2022 Stress-induced cardiomyopathy 08/24/2022 Hypomagnesemia 08/24/2022 Alcoholic ketoacidosis 08/04/2022 Collapse 08/04/2022 NSTEMI (non-ST elevated myocardial infarction) 0 08/04/2022 Pressure injury of head (face), unstageable 07/26 Overview: Present on arrival Pressure ulcers of skin of multiple topographic sites 08/04/2022 Overview: Pressure ulcers along left side and on abdomen and chest; due to laying on floor for prolonged period Multiple subsegmental pulmon yasir emboli without acute cor pulmonale 08/04/2022 Dehydration with hypernatremia 08/04/2022 Resolved Problems Problem Noted Date Diagnosed Date Resolved Date Hypokalemia 08/04/2022 12/31/2023 Encounters Date Type Department Care Team Description 12/31/2023 11:25 AM LEARNING AND DEVELOPMENT SPECIALIST Office Visit [facility] [address] [place] [address] [facility] 12/31/2023 Travel 12/19/2023 Telephone [facility] [address] [place] [phone] Kim Gallo MD Late Cancel Appointment 12/18/2023 Telephone [facility] [address] [place] [phone] Kim Gallo MD Appointment (Cancel appointment ) 12/11/2023 Telephone [facility] [address] [place] [phone] Kim Gallo MD Appointment 12/02/2023 Telephone [facility] [address] [place] [phone] Kim Gallo MD 10/28/2023 6:00 PM LEARNING AND DEVELOPMENT SPECIALIST Orders Only [facility] [address] [place] [address] 2 scans: (2-Ord) ECHO TTE COMPLETE WO CONTRAST ([id number]) 10/28/2023 Travel 10/13/2023 Refill [facility] [address] [place] [address] Ghada Cruzi, DO Refill Request (Metoprolol Tartrate) 10/13/2023 Refill [facility] [address] [place] [address] Ghada Cruzi, DO Refill Request (Metoprolol Tartrate) from Last 3 [...] Sign Reading Time Taken Comments Blood Pressure 198/124 12/31/2023 11:34 AM LEARNING AND DEVELOPMENT SPECIALIST re check Pulse 80 12/31/2023 11:30 AM LEARNING AND DEVELOPMENT SPECIALIST Temperature 36.7 ??C (98.1 ??F) 08/21/2023 3:26 PM CD T Respiratory Rate 18 09/06/2023 11:34 AM CDT Oxygen Saturation 100% 12/31/2023 11:30 AM LEARNING AND DEVELOPMENT SPECIALIST Inhaled Oxygen Concentration - - Weight 52.4 kg (115 lb 8 oz) 09/06/2023 11:34 AM CDT Height 172.7 cm (5' 8) 09/06/2023 11:34 AM CDT Body Mass Index 17.56 09/06/2023 11:34 AM CDT Plan of Treatment Upcoming Encounters Date Type Department Care Team (Late st Contact Info) Description 01/21/2024 11:00 AM LEARNING AND DEVELOPMENT SPECIALIST Office Visit [facility] [address] [place] [address] Stefan Cruz DO [address] [place] [address] Health Maintenance Due Date Last Done Comments Pneumococcal series for age 6-64 (1 of 2 - PCV) 1966 Tdap 1971 Depression screening for age 12+ 1972 HIV for age 15-65 1975 Hepatitis C screening for age 18-79 1978 Zoster (shingles) series for age 50+ (1 of 2) 1979 Tetanus booster 1980 Pap test for age 21-65 1981 Lipids for age 45-75 2005 Mammogram for age 45-75 2005 COVID-19 vaccine series ( season) 2023 11/09/2021, 03/10/2021, 02/09/2021 Influenza for age 50-64 07/26/2023 BMI (ht and wt on same day) for age 18+ 09/06/2024 09/06/2023, 07/26/2023, 08/30/2022 Colonoscopy through age 75 07/08/2033 07/08/2023 Procedures Procedure Name Priority Date/Time Associated Diagnosis Comments CBC WITH AUTO DIFFERENTIAL Routine 12/31/2023 12:12 PM LEARNING AND DEVELOPMENT SPECIALIST Severe anemia CBC WITH AUTO DIFFERENTIAL Routine 12/31/2023 12:12 PM LEARNING AND DEVELOPMENT SPECIALIST Severe anemia ECHO TTE COMPLETE WO CONTRAST Routine 10/28/2023 7:43 PM LEARNING AND DEVELOPMENT SPECIALIST Elevated troponin Syncope Cardiomyopathy (HC) from Last 3 Months Results * (ABNORMAL) CBC WITH AUTO DIFFERENTIAL (12/31/2023 12:12 PM LEARNING AND DEVELOPMENT SPECIALIST) WHITE BLOOD COUNT 5.0 4.5 - 11.0 thou/cu mm 12/31/2023 12:34 PM [facility] RED BLOOD COUNT 3.51(L) 4.00 - 5.20 mil/cu mm 12/31/2023 12:34 PM [facility] HEMOGLOBIN 12.8 12.0 - 16.0 g/dL 12/31/2023 12:34 PM [facility] HEMATOCRIT 38.8 33.0 - 51.0 % 12/31/2023 12:34 PM [facility] MCV 111(H) 80 - 100 fL 12/31/2023 12:34 PM [facility] MCH 36.5(H) 26.0 - 34.0 pg 12/31/2023 12:34 PM [facility] MCHC 33.0 32.0 - 36.0 g/dL 12/31/2023 12:34 PM [facility] RDW 12.7 11.5 - 15.5 % 12/31/2023 12:34 PM [facility] PLATELET COUNT 378 140 - 440 thou/cu mm 12/31/2023 12:34 PM [facility] MPV 10.2 6.5 - 11.0 fL 12/31/2023 12:34 PM [facility] % NEUT 55.6 % 12/31/2023 12:34 PM [facility] % LYMPH 24.3 % 12/31/2023 12:34 PM [facility] % MONO 18.9 % 12/31/2023 12:34 PM [facility] % EOS 0.4 % 12/31/2023 12:34 PM [facility] % BASO 0.8 % 12/31/2023 12:34 PM LEARNING AND DEVELOPMENT SPECIALIST [facility] ABSOLUTE NEUTROPHILS 2.8 1.7 - 7.0 thou/cu mm 12/31/2023 12:34 PM LEARNING AND DEVELOPMENT SPECIALIST [facility] ABSOLUTE LYMPHOCYTES 1.2 0.9 - 2.9 thou/cu mm 12/31/2023 12:34 PM LEARNING AND DEVELOPMENT SPECIALIST [facility] ABSOLUTE MONOCYTES 0.9(H) <0.9 thou/cu mm 12/31/2023 12:34 PM LEARNING AND DEVELOPMENT SPECIALIST [facility] ABSOLUTE EOSINOPHILS 0.0 <0.5 thou/cu mm 12/31/2023 12:34 PM LEARNING AND DEVELOPMENT SPECIALIST [facility] ABSOLUTE BASOPHILS 0.0 <0.3 thou/cu mm 12/31/2023 12:34 PM LEARNING AND DEVELOPMENT SPECIALIST [facility] Blood BLOOD SPECIMEN / Unknown Butterfly / Unknown 12/31/2023 12:12 PM LEARNING AND DEVELOPMENT SPECIALIST 12/31/2023 12:14 PM LEARNING AND DEVELOPMENT SPECIALIST Stefan Cruz DO HEMATOLOGY [facility] [address] [place] [address], * ECHO TTE COMPLETE WO CONTRAST (10/28/2023 7:43 PM LEARNING AND DEVELOPMENT SPECIALIST) AORTIC VALVE MEAN PG 3 mmHg EJECTION FRACTION 60 % PEAK TR VELOCITY 2.8 m/s LVEDD 4.4 cm EJECTION FRACTION 60 - 65% Anatomical Region Laterality Modality Ultrasound 10/28/2023 5:35 PM LEARNING AND DEVELOPMENT SPECIALIST Narrative 10/29/2023 6:36 AM LEARNING AND DEVELOPMENT SPECIALIST ECHOCARDIOGRAM SIMONA VELÁZQUEZ ? Accession#: ?? [id number] : ?1960 62 years Study Date: ?? 10/28/2023 5:35:07 PM Gender: F ?BP: ? 114/86 mmHg Height: 173.00 cm ?BSA: ?1.64 m? ? ? Weight: 54.00 kg ? Tech: ? MTS ? Referring MD: JUNIOR GARVEY Site: ? [facility] Reading Location: [facility] Patient Location: Inpatient. Procedure: 2D, Color [...] . This study was interpreted by an [facility] accredited facility. CC: HIM (med records) [facility], Med/Surg - IP [facility]. ??Final ?? Procedure Note Dipesh Meehan MD - 10/29/2023 ECHOCARDIOGRAM SIMONA VELÁZQUEZ : 1960 62 years Study Date: 10/28/2023 5:35:07 PM Gender: F BP: 114/86 mmHg Height: 173.00 cm BSA: 1.64 m? ? ? Weight: 54.00 kg Tech: [facility] Referring MD: JUNIOR GARVEY Site: [facility] Reading Location: [facility] [place] Patient Location: Inpatient. Procedure: 2D, Color Doppler [...] . This study was interpreted by an [facility] accredited facility. CC: HIM (med records) [facility], Med/Surg - IP [facility]. Final Junior Garvey MD ECHO ORD from [...] Preferences, Provider to review later Care Teams Ibm Bpm Developer Relationship Specialty Start Date End Date Pcp, No . PCP - General 12/31/23 [facility] [place] [address] [address] 07/16/23 Alexi Keating, RN [address] [address] Nurse Navigator - Oncology Registered Nurse 10/08/23 Kim Gallo MD [address] [address] Surgery - Colon and Rectal 10/08/23
== END 2023-12-26 16:25 | disposition home or self-care (01) | DRG 896 ==
LOC: ED 17:06 → MEDSURG 17:58
PROVIDERS: Family Medicine; Internal Medicine; Admitting Provider Family Medicine; Emergency Provider Emergency Medicine; Visit Provider Family Medicine
DX: F10.229 Alcohol dependence with intoxication, unspecified (principal); J69.0 Pneumonitis due to inhalation of food and vomit; S22.43XA Multiple fractures of ribs, bilateral, initial encounter for closed fracture; A04.72 Enterocolitis due to Clostridium difficile, not specified as recurrent; C18.2 Malignant neoplasm of ascending colon; A04.71 Enterocolitis due to Clostridium difficile, recurrent; D61.818 Other pancytopenia; Z68.1 Body mass index [BMI] 19.9 or less, adult; Y90.8 Blood alcohol level of 240 mg/100 ml or more; E87.6 Hypokalemia; F41.9 Anxiety disorder, unspecified; Z91.81 History of falling; S05.12XA Contusion of eyeball and orbital tissues, left eye, initial encounter; S80.02XA Contusion of left knee, initial encounter; S30.1XXA Contusion of abdominal wall, initial encounter; W19.XXXA Unspecified fall, initial encounter; Y92.009 Unspecified place in unspecified non-institutional (private) residence as the place of occurrence of the external cause; E83.42 Hypomagnesemia; K70.0 Alcoholic fatty liver; D53.9 Nutritional anemia, unspecified; D69.6 Thrombocytopenia, unspecified; R15.9 Full incontinence of feces; R53.1 Weakness
CPT/HCPCS: 36415; 70450; 71045; 72125; 74177; 80048; 80053; 80069; 80076; 80306; 81001; 82077; 82330; 82550; 82803; 82977; 83605; 83690; 83735; 84100; 84132; 84145; 84484; 85025; 85027; 85610; 86140; 87040; 87045; 87046; 87077; 87086; 87147; 87186; 87427; 87493; 87505; 87631; 97112; 97116; 97161; 97165; 99284; 99285; A9153; A9270; C9113; J0613; J1650; J2060; J3411; J3475; J3480; J7030; Q9967; S4990

== ENCOUNTER 2024-01-31 19:42 | Outpatient (CLI) | payer MEDICAID, SELFPAY | END 2024-01-31 19:43 | disposition home or self-care (01) | LOC: AMB 02-01 15:29 | PROVIDERS: Visit Provider Emergency Medicine | DX: R53.1 Weakness (principal) | CPT/HCPCS: A0998 ==

== ENCOUNTER 2024-02-02 19:20 | Outpatient (CLI) | payer MEDICAID, SELFPAY | END 2024-02-02 19:21 | disposition home or self-care (01) | LOC: AMB 02-05 12:20 | PROVIDERS: PCP Student in an Organized Health Care Education/Training Program; Visit Provider Emergency Medicine Emergency Medical Services | DX: R53.1 Weakness (principal); R42 Dizziness and giddiness; S39.92XA Unspecified injury of lower back, initial encounter; W18.30XA Fall on same level, unspecified, initial encounter; Y92.039 Unspecified place in apartment as the place of occurrence of the external cause | CPT/HCPCS: A0425; A0427 ==

== ENCOUNTER 2024-02-02 20:08 | Inpatient (IN) | payer MEDICAID, SELFPAY ==
[2024-02-02] VITALS (18 sets, daily range): BP systolic 118–141; BP diastolic 75–105; PULSE 75–144; RESP 22; TEMP 36.5; O2SAT 96–100; BMI 17.8
--- NOTE | 2024-02-02 20:38 | ED_ITS ---
HPI - General Adult General Chief complaint: Fever Stated complaint: illness Time Seen by Provider: 02/02/24 20:12 History of Present Illness HPI narrative: This 63-year-old female comes in because of generalized weakness. She states that she has fallen a couple times over the past few days. She does report some pain in her hips but is able to get up and ambulate. She states that she did need help getting up out of the sofa today because of generalized weakness. She arrives with tachycardia and appears on the monitor to have some episodes of normal sinus rhythm but then her heart rate resumes a pace of around 130 beats per minute. She does not report any chest pain. She does feel lightheaded at times. She does have a history of atrial fibrillation. She has a history of liver disease and alcohol abuse. She denies using any alcohol. About 6 weeks ago she was tested positive for C diff colitis. Related Data Home Medications Medication Instructions Recorded Confirmed aspirin 81 mg tablet,delayed 81 mg PO DAILY 10/27/23 02/02/24 release losartan 25 mg tablet 25 mg PO DAILY 10/27/23 02/02/24 magnesium oxide 400 mg (241.3 mg 800 mg PO BID 10/27/23 02/02/24 magnesium) tablet sertraline 50 mg tablet 50 mg PO DAILY 10/27/23 02/02/24 albuterol sulfate 90 mcg/actuation 2 inh inhalation Q6H PRN 10/28/23 02/02/24 aerosol inhaler (Ventolin HFA) Previous Rx's Medication Instructions Recorded metoprolol tartrate 25 mg tablet 50 mg (2 x 25 mg) PO BID #120 tabs 11/07/23 nicotine 14 mg/24 hr daily 1 patch topical Q24H #15 ea 11/07/23 transdermal patch vitamin B complex-folic acid 0.4 1 tab PO DAILY #90 tabs 11/07/23 mg tablet thiamine mononitrate (vit B1) 100 100 mg PO DAILY #30 tabs 12/26/23 mg tablet (Vitamin B-1 (mononitrate)) Allergies Allergy/AdvReac Type Severity Reaction Status Date / Time Penicillins Allergy Verified 12/22/23 15:43 Review of Systems Status of ROS: Reports: 10 or more systems reviewed and unremarkable except as noted in History and below Narrative: Constitutional: Generalized weakness. She reports fevers and some chills but did not measure her temperature. Eyes: No discharge. No vision changes. HENT: No congestion, no sore throat, no ear pain. Cardiovascular: No chest pain, no palpitations. Respiratory: No shortness of breath, no wheezes, no cough. Gastrointestinal: No abdominal pain, no vomiting, no diarrhea. Genitourinary: No dysuria, no hematuria. Musculoskeletal: Normal range of motion. Skin: No rashes, no pruritis. Neurological: No dizziness, weakness, sensory change, speech change. Endo/Heme/Allergies: No bruising or bleeding. No polydipsia. Pysch: no suicidality, no anxiety, no insomnia. All other systems reviewed and are negative. [facility] Medical History (Updated 02/02/24 @ 23:16 by Corey Clancy MD) Alcoholic liver disease ?K70.9 - Alcoholic liver disease, unspecified (ICD-10) Alcohol dependence with acute alcoholic intoxication with complication ?F10.229 - Alcohol dependence with intoxication, unspecified (ICD-10) Multiple rib fractures ?S22.49XA - Multiple fractures of ribs, unspecified side, initial encounter for closed fracture (ICD-10) Elevated TSH ?R79.89 - Other specified abnormal findings of blood chemistry (ICD-10) Macrocytic anemia ?D53.9 - Nutritional anemia, unspecified (ICD-10) Macrocytosis ?D75.89 - Other specified diseases of blood and blood-forming organs (ICD-10) Syncope ?R55 - Syncope and collapse (ICD-10) Social History (Updated 12/22/23 @ 19:08 by Dipesh Larkin MD) What is your current living situation?: I presently have a place to live Problems where you live: no known problems Problems where you live details: N/A In the past 12 months, utilities in danger of being shut off: no In past 12 months, lack of transportation kept you from medical appts, meetings, work, or getting things needed for daily living: no In the past 12 mos, have been you worried that your food would run out before you had money to buy more?: never true In the past 12 mos, the food you bought just didn't last and you didn't have money to buy more?: never true Highest level of school completed/degree received: Associate degree: occupational, technical, vocational program Smoking Status: Former smoker What tobacco products do you use: cigarettes Smoking packs per day: 0.25 Smoking cigarettes per day: 5.0 Years smoked: 20 Smoking pack-years: 5.00 Smoking quit date/years: <= 15 years ago Do you use any of these nicotine containing products: None Second hand tobacco smoke exposure: No How often do you have a drink containing alcohol: 2-4 times a month Alcohol type: hard liquor Alcohol type details: Rum and coke How many standard drinks containing alcohol do you have on a typical day: 1 or 2 How often do you have six or more drinks on one occasion: Never AUDIT-C Alcohol total score: 2 Non-prescribed substance use: denies use Caffeine: Yes (tea) How often does anyone, including family, friends and others, physically hurt you : never How often does anyone, including family, friends and others, insult or talk down to you: never How often does anyone, including family, friends and others, threaten you with harm: never How often does anyone, including family, friends and others, scream or curse at you: never service: No Exam Narrative: Exam Narrative: Constitutional: Well-developed, well-nourished, no acute distress. HEENT: Normocephalic, atraumatic. Neck: Normal range of motion. Nontender. Supple. Heart: Regular. No murmurs. Tachycardia. Intact distal pulses. Lungs: Clear to auscultation. No chest discomfort. No wheezes, rhonchi, or rales. Abdomen: Normal bowel sounds. Nontender. No rebound tenderness. Genitalia: Deferred. Back: No midline tenderness. Normal range of motion. Extremities: Normal range of motion. No injury. Skin: Intact. No rash. Warm. No erythema or pallor. Neurologic: No altered sensation. No weakness. Alert and oriented. Psychiatric: No suicidality. No anxiety or depression. No insomnia. Nursing notes and vitals signs are reviewed. Const: Vital Signs, click to edit/add: Vital Signs - 24 hr 02/02/24 20:16 02/02/24 20:34 02/02/24 20:45 Temperature 97.7 F Pulse Rate 141 H 129 H Pulse Rate [Right Pulse Oximeter] 131 H Respiratory Rate 22 Blood Pressure Blood Pressure [Le ft Upper Arm] 135/105 H Pulse Oximetry 98 97 96 Oxygen Delivery Me thod Room Air 02/02/24 21:15 02/02/24 21:16 02/02/24 21:17 Temperature Pulse Rate 112 H 136 H 92 Pulse Rate [Right Pulse Oximeter] Respiratory Rate Blood Pressure 125/93 H Blood Pressure [Le ft Upper Arm] Pulse Oximetry 99 98 98 Oxygen Delivery Me thod 02/02/24 21:30 02/02/24 21:41 02/02/24 21:45 Temperature Pulse Rate 108 H 112 H 126 H Pulse Rate [Right Pulse Oximeter] Respiratory Rate Blood Pressure 141/89 H Blood Pressure [Le ft Upper Arm] Pulse Oximetry 97 98 98 Oxygen Delivery Me thod 02/02/24 22:00 02/02/24 22:15 02/02/24 22:30 Temperature Pulse Rate 144 H 136 H 85 Pulse Rate [Right Pulse Oximeter] Respiratory Rate Blood Pressure Blood Pressure [Le ft Upper Arm] Pulse Oximetry 99 100 96 Oxygen Delivery Me thod 02/02/24 22:45 02/02/24 22:57 02/02/24 23:00 Temperature Pulse Rate 77 76 77 Pulse Rate [Right Pulse Oximeter] Respiratory Rate Blood Pressure 118/75 Blood Pressure [Le ft Upper Arm] Pulse Oximetry 96 98 97 Oxygen Delivery Me thod Course Vital Signs Vital signs: Initial Vital Signs Temperature 97.7 F 02/02/24 20:16 Temperature Source Temporal Artery Scan 02/02/24 20:16 Pulse Rate 131 H 02/02/24 20:16 Respiratory Rate 22 02/02/24 20:16 Blood Pressure 135/105 H 02/02/24 20:16 Blood Pressure Mean 115 H 02/02/24 20:16 Blood Pressure Position Sitting 02/02/24 20:16 Pulse Oximetry 98 02/02/24 20:16 Oxygen Delivery Method Room Air 02/02/24 20:16 Vital Signs Temperature 97.7 F 02/02/24 20:16 Pulse Rate 131 H 02/02/24 20:16 Respiratory Rate 22 02/02/24 20:16 Blood Pressure 135/105 H 02/02/24 20:16 Pulse Oximetry 98 02/02/24 20:16 Oxygen Delivery Method Room Air 02/02/24 20:16 Temperature 97.7 F 02/02/24 20:16 Pulse Rate 77 02/02/24 23:00 Respiratory Rate 22 02/02/24 20:16 Blood Pressure 118/75 02/02/24 22:57 Pulse Oximetry 97 02/02/24 23:00 Oxygen Delivery Method Room Air 02/02/24 20:16 Medications Administered Medications: Generic Name Dose Route Start Last Admin Trade Name Don PRN Reason Stop Dose Admin Sodium Chloride 1,000 mls @ 1,000 mls/hr 02/02/24 22:30 02/02/24 22:22 0.9 % Sodium Chloride 1000 Ml IV 02/02/24 23:29 1,000 mls/hr .Q1H [place] Administration Discontinued Medications Generic Name Dose Route Start Last Admin Trade Name Freq PRN Reason Stop Dose Admin Sodium Chloride 1,000 mls @ 1,000 mls/hr 02/02/24 21:15 02/02/24 22:13 0.9 % Sodium Chloride 1000 Ml IV 02/02/24 22:14 Infused .Q1H [place] Infusion Metoprolol Tartrate 25 mg 02/02/24 21:46 02/02/24 21:50 Metoprolol Tartrate 25 Mg Tablet PO 02/02/24 21:47 25 mg ONCE ONE Administration Potassium Chloride 40 meq 02/02/24 21:36 02/02/24 21:41 Potassium Chloride 10 Meq Capsule Er PO 02/02/24 21:37 40 meq ONCE ONE Administration Medical Decision Making MDM Narrative Medical decision making narrative: This patient arrives reporting generalized weakness and states that she has had a fever however she never did move measure a temperature. She arrives here with normal temperature but does have increased heart rate. EKG is suggesting supraventricular tachycardia. An IV was established where the patient did receive a total of 2 L of normal saline. Labs are acquired and her potassium is significantly low at 2.6. The patient did receive an oral dose of potassium chloride 40 mEq. Other lab results show slightly elevated liver enzymes which is not new for her. Hemoglobin is a bit low at 10.6 which again is not new for her. The patient did have intermittent episodes of SVT mixed with normal sinus rhythm. She does take metoprolol 50 mg twice daily. She did receive another dose of metoprolol 25 mg here and repeat EKG and heart monitoring as showing normal sinus rhythm without any evidence of tachycardia. The patient states that she is feeling better. She is okay to be discharged home. She does report to me that she was prescribed potassium because it was low in the more recent past but her primary physician instructed her to discontinue taking the potassium. She should follow-up with her primary physician and review this plan. Lab Data Labs: Lab Results 02/02/24 02/02/24 02/02/24 Range/Units 20:26 20:43 21:00 WBC 6.42 (4.50-11.00) K/uL RBC 2.97 L (4.00-5.20) m/uL Hgb 10.6 L (12.0-16.0) gm/dL Hct 31.0 L (33.0-51.0) % MCV 104 H (80-100) fL MCH 36 H (26-34) pg MCHC 34 (32-36) gm/dL RDW Coeff of Katina 13.0 (11.5-15.5) % Plt Count 268 (140-440) K/uL Neut % (Auto) 68.3 (42.0-72.0) % Lymph % (Auto) 16.7 L (20-44) % [place] % (Auto) 14.3 H (0.0-11.0) % Eos % (Auto) 0.2 (0.0-7.0) % Baso % (Auto) 0.3 (0.0-3.0) % Neut # (Auto) 4.39 (1.7-7.0) K/uL Lymph # (Auto) 1.10 (0.90-2.90) K/uL [place] # (Auto) 0.90 (0.00-0.90) K/UL Eos # (Auto) 0.01 (0.00-0.50) K/uL Baso # (Auto) 0.02 (0.00-0.30) K/uL Abs Immat Gran (auto) 0.01 (0.00-0.30) K/uL Imm/Tot Granulo (auto) 0.2 % Sodium 135 (135-149) mmol/L Potassium 2.6 L* (3.6-5.1) mmol/L Chloride 94 L (96-114) mmol/L Carbon Dioxide 30 (20-32) mmol/L Anion Gap 11 (7-15) mEq/L BUN 36 H (7-30) mg/dL Creatinine 0.6 (0.5-1.5) mg/dL Estimated Creat Clear 48.24 Estimated GFR 101 ml/min Glucose 91 (60-115) mg/dL Calcium 9.1 (8.4-10.6) mg/dL Magnesium 1.1 L (1.5-2.6) mg/dL Total Bilirubin 1.4 (0.1-1.5) mg/dL Direct Bilirubin 0.4 (0.0-0.5) mg/dL AST 96 H (12-35) U/L ALT 52 H (4-35) U/L Alkaline Phosphatase 97 (40-150) U/L C-Reactive Protein 1.9 H (0.5-1.0) mg/dL Total Protein 7.7 (6.0-8.3) g/dL Albumin 4.4 (3.3-5.0) g/dL SARS-CoV-2 (PCR) Negative SARS-CoV-2 (Negative) Influenza Type A (PCR) Negative PCR FLU A (Negative) Influenza Type B (PCR) Negative PCR FLU B (Negative) RSV (PCR) Negative PCR RSV (Negative) POC Troponin I 0.02 (0.01-0.04) ng/ml ECG Data Attestation: I personally reviewed and interpreted this ECG as follows: Interpretation: Supraventricular tachycardia. Rate is 138 beats per minute. There are no specific ST or T-wave abnormalities. Discharge Plan Discharge Clinical Impression: Tachycardia, Fluid volume depletion, Acute hypokalemia Patient Disposition: Home, Self-Care Condition: Improved Additional Instructions: Continue current plans. Follow up with primary physician to review treatment options for recurrent hypokalemia. Return if worsening. Prescriptions: No Action thiamine mononitrate (vit B1) [Vitamin B-1 (mononitrate)] 100 mg Tablet 100 mg PO DAILY Qty: 30 0RF aspirin 81 mg tablet,delayed release (DR/EC) 81 mg PO DAILY sertraline 50 mg tablet 50 mg PO DAILY magnesium oxide 400 mg (241.3 mg magnesium) tablet 800 mg PO BID losartan 25 mg tablet 25 mg PO DAILY albuterol sulfate [Ventolin HFA] 90 mcg/actuation HFA aerosol inhaler 2 inh inhalation Q6H PRN vitamin B complex-folic acid 0.4 mg Tablet 1 tab PO DAILY Qty: 90 0RF nicotine 14 mg/24 hr Patch 24 Hour 1 patch topical Q24H Qty: 15 0RF metoprolol tartrate 25 mg Tablet 50 mg PO BID Qty: 120 0RF Follow Up/Referrals: Provider,Not a Local [Referring] - Stand Alone Forms: LTG Exam Prep Platform Info Instructions
[2024-02-02 21:10] LABS: PCR FLU A Negative PCR FLU A (Negative); PCR FLU B Negative PCR FLU B (Negative); PCR RSV Negative PCR RSV (Negative); SARS PCR* Negative SARS-CoV-2 (Negative)
[2024-02-02 21:11] LABS: Basophils Absolute Auto 0.02 K/uL (0.00-0.30); Basophils Percent Auto 0.3 % (0.0-3.0); Eosinophils Absolute Auto 0.01 K/uL (0.00-0.50); Eosinophils Percent Auto 0.2 % (0.0-7.0); Hemoglobin* 10.6 gm/dL (12.0-16.0); Immature Granulocytes Abs Auto 0.01 K/uL (0.00-0.30); Immature Granulocytes Pct Auto 0.2 %; Lymphocytes Percent Auto 16.7 % (20-44); Mean Corpuscular HGB Conc 34 gm/dL (32-36); Mean Corpuscular Hemoglobin 36 pg (26-34); Mean Corpuscular Volume 104 fL (80-100); Monocytes Percent Auto 14.3 % (0.0-11.0); Neutrophils Absolute Auto 4.39 K/uL (1.7-7.0); Neutrophils Percent Auto 68.3 % (42.0-72.0); Platelet Count* 268 K/uL (140-440); Red Blood Count 2.97 m/uL (4.00-5.20); White Blood Count* 6.42 K/uL (4.50-11.00)
[2024-02-02 21:13] LABS: Slide Review Reflex No
[2024-02-02 21:17] LABS: Troponin, Point-of-Care* 0.02 ng/ml (0.01-0.04)
[2024-02-02] MEDS: 0.9 % SODIUM CHLORIDE 1000 ml 1,000 ML IV ×2 (21:22→22:22)
[2024-02-02 21:24] LABS: Albumin* 4.4 g/dL (3.3-5.0); Chloride* 94 mmol/L (96-114)
[2024-02-02 21:25] LABS: Sodium* 135 mmol/L (135-149)
[2024-02-02 21:27] LABS: Creatinine* 0.6 mg/dL (0.5-1.5); Est. Creatinine Clearance* 48.24; Estimated Glomerular Filt Rate 101 ml/min
[2024-02-02 21:28] LABS: Alanine Aminotransferase* 52 U/L (4-35); Alkaline Phosphatase* 97 U/L (40-150); Anion Gap 11 mEq/L (7-15); Aspartate Amino Transferase* 96 U/L (12-35); Bilirubin Direct* 0.4 mg/dL (0.0-0.5); Bilirubin Total* 1.4 mg/dL (0.1-1.5); Blood Urea Nitrogen* 36 mg/dL (7-30); Carbon Dioxide* 30 mmol/L (20-32); Glucose* 91 mg/dL (60-115); Total Protein* 7.7 g/dL (6.0-8.3)
[2024-02-02 21:29] LABS: Calcium* 9.1 mg/dL (8.4-10.6); Magnesium* 1.1 mg/dL (1.5-2.6)
[2024-02-02 21:31] LABS: C Reactive Protein* 1.9 mg/dL (0.5-1.0); Potassium* 2.6 mmol/L (3.6-5.1)
--- NOTE | 2024-02-02 21:37 | ED.NURSE ---
Patient noted to be in and out of SVT and NSR. Asymptomatic at this time. Blood pressure WNL.
[2024-02-02] MEDS: POTASSIUM CHLORIDE 10 MEQ CAPSULE ER 40 MEQ PO (21:41)
[2024-02-02] MEDS: METOPROLOL TARTRATE 25 MG TABLET PO (21:50)
[2024-02-03] VITALS (14 sets, daily range): BP systolic 113–154; BP diastolic 81–90; PULSE 74–98; RESP 16–20; TEMP 36.5–37.2; O2SAT 95–98; BMI 18.2
[2024-02-03 00:50] LABS: CDIFFEPI 027 PRESUMPTIVE NEGATIVE (Negative)
[2024-02-03 00:53] LABS: C.Difficile POSITIVE (Negative)
--- NOTE | 2024-02-03 02:02 | W.PM.THH&P_ITS ---
Telehealth- H&P: HPI History of Present Illness Date Seen: 02/03/24 Chief complaint: illness Narrative: Simona Velázquez is seen as an Interactive Telehealth visit. Simona Velázquez is a 63 year old male who is Seen in her hospital room at [facility] with the assistance of nursing staff. She has been admitted through the emergency room. She tells me she came in because she was fever weak and fell down. She is seems to be somewhat of a poor historian. She tells me she has had diarrhea for the last month about 2 loose stools per day had a fever on Saturday. patient was brought into the emergency room and found to have a heart rate of 130. She was potentially having arrhythmia. She was noted to have a low potassium at 2.6. She was given 2 L of IV fluids. 40 mill equivalents of oral potassium. 25 mg of metoprolol. She was starting to feel better and wanted to be discharged home. Patient was unable to get up was too weak. Family reported she has been crawling around at home. It was felt that she needed further evaluation and treatment and possible Placement. She does not have any other immediate concerns. Review of Systems Narrative: A complete review of systems was performed positive pertinent and negatives in the history of present illness. [facility] Medical History (Updated 02/03/24 @ 02:11 by Lv Ferrara DO) Alcoholic liver disease ?K70.9 - Alcoholic liver disease, unspecified (ICD-10) Alcohol dependence with acute alcoholic intoxication with complication ?F10.229 - Alcohol dependence with intoxication, unspecified (ICD-10) Multiple rib fractures ?S22.49XA - Multiple fractures of ribs, unspecified side, initial encounter for closed fracture (ICD-10) Elevated TSH ?R79.89 - Other specified abnormal findings of blood chemistry (ICD-10) Macrocytic anemia ?D53.9 - Nutritional anemia, unspecified (ICD-10) Macrocytosis ?D75.89 - Other specified diseases of blood and blood-forming organs (ICD-10) Syncope ?R55 - Syncope and collapse (ICD-10) Social History (Updated 12/22/23 @ 19:08 by Dipesh Larkin MD) What is your current living situation?: I presently have a place to live Problems where you live: no known problems Problems where you live details: N/A In the past 12 months, utilities in danger of being shut off: no In past 12 months, lack of transportation kept you from medical appts, meetings, work, or getting things needed for daily living: no In the past 12 mos, have been you worried that your food would run out before you had money to buy more?: never true In the past 12 mos, the food you bought just didn't last and you didn't have money to buy more?: never true Highest level of school completed/degree received: Associate degree: occupational, technical, vocational program Smoking Status: Former smoker What tobacco products do you use: cigarettes Smoking packs per day: 0.25 Smoking cigarettes per day: 5.0 Years smoked: 20 Smoking pack-years: 5.00 Smoking quit date/years: <= 15 years ago Do you use any of these nicotine containing products: None Second hand tobacco smoke exposure: No How often do you have a drink containing alcohol: 2-4 times a month Alcohol type: hard liquor Alcohol type details: Rum and coke How many standard drinks containing alcohol do you have on a typical day: 1 or 2 How often do you have six or more drinks on one occasion: Never AUDIT-C Alcohol total score: 2 Non-prescribed substance use: denies use Caffeine: Yes (tea) How often does anyone, including family, friends and others, physically hurt you : never How often does anyone, including family, friends and others, insult or talk down to you: never How often does anyone, including family, friends and others, threaten you with harm: never How often does anyone, including family, friends and others, scream or curse at you: never service: No Meds Home Medications and Allergies Home Medications Medication Instructions Recorded Confirmed Type aspirin 81 mg tablet,delayed 81 mg PO DAILY 10/27/23 02/02/24 History release losartan 25 mg tablet 25 mg PO DAILY 10/27/23 02/02/24 History magnesium oxide 400 mg (241.3 mg 800 mg PO BID 10/27/23 02/02/24 History magnesium) tablet sertraline 50 mg tablet 50 mg PO DAILY 10/27/23 02/02/24 History albuterol sulfate 90 mcg/actuation 2 inh inhalation Q6H PRN 10/28/23 02/02/24 History aerosol inhaler (Ventolin HFA) Allergies Allergy/AdvReac Type Severity Reaction Status Date / Time Penicillins Allergy Verified 12/22/23 15:43 Exam Narrative Exam Narrative: Physical Exam GENERAL: ?vital signs reviewed, well developed and nourished, in no distress HEENT: pupils are equal round and reactive to light, extraocular movements are grossly within normal limits and oral mucosa is moist. Her tongue is mildly tremulous NECK: Supple without lymphadenopathy or thyromegaly according to nursing staff examination observation HEART: Regular rate and rhythm without any rubs, murmurs, or gallops. LUNGS: Clear to auscultation bilaterally with good air movement throughout ABDOMEN: Observation from nurse assisted exam, abdomen appears soft, nontender, and nondistended with Positive bowel sounds noted. EXTREMITIES: Strength and sensation is observed to be grossly within normal limits in the upper and lower extremities.? No focal strength deficit is observed. SKIN:? Observed warm and dry with color normal Const Vital Signs, click to edit/add: Vital Signs - 24 hr 02/02/24 20:16 02/02/24 20:34 02/02/24 20:45 Temperature 97.7 F Pulse Rate 141 H 129 H Pulse Rate [Right Pulse Oximeter] 131 H Respiratory Rate 22 Blood Pressure Blood Pressure [Left Upper Arm] 135/105 H Pulse Oximetry 98 97 96 Oxygen Delivery Method Room Air 02/02/24 21:15 02/02/24 21:16 02/02/24 21:17 Temperature Pulse Rate 112 H 136 H 92 Pulse Rate [Right Pulse Oximeter] Respiratory Rate Blood Pressure 125/93 H Blood Pressure [Left Upper Arm] Pulse Oximetry 99 98 98 Oxygen Delivery Method 02/02/24 21:30 02/02/24 21:41 02/02/24 21:45 Temperature Pulse Rate 108 H 112 H 126 H Pulse Rate [Right Pulse Oximeter] Respiratory Rate Blood Pressure 141/89 H Blood Pressure [Left Upper Arm] Pulse Oximetry 97 98 98 Oxygen Delivery Method 02/02/24 22:00 02/02/24 22:15 02/02/24 22:30 Temperature Pulse Rate 144 H 136 H 85 Pulse Rate [Right Pulse Oximeter] Respiratory Rate Blood Pressure Blood Pressure [Left Upper Arm] Pulse Oximetry 99 100 96 Oxygen Delivery Method 02/02/24 22:45 02/02/24 22:57 02/02/24 23:00 Temperature Pulse Rate 77 76 77 Pulse Rate [Right Pulse Oximeter] Respiratory Rate Blood Pressure 118/75 Blood Pressure [Left Upper Arm] Pulse Oximetry 96 98 97 Oxygen Delivery Method 02/02/24 23:15 02/02/24 23:30 02/02/24 23:45 Temperature Pulse Rate 75 84 82 Pulse Rate [Right Pulse Oximeter] Respiratory Rate Blood Pressure Blood Pressure [Left Upper Arm] Pulse Oximetry 97 96 97 Oxygen Delivery Method 02/03/24 00:00 02/03/24 00:15 02/03/24 00:30 Temperature Pulse Rate 74 83 80 Pulse Rate [Right Pulse Oximeter] Respiratory Rate Blood Pressure Blood Pressure [Left Upper Arm] Pulse Oximetry 97 97 97 Oxygen Delivery Method Hospitalist - H&P: Result Labs Labs: Short CBC 02/02/24 Range/Units 21:00 WBC 6.42 (4.50-11.00) K/uL Hgb 10.6 L (12.0-16.0) gm/dL Hct 31.0 L (33.0-51.0) % Plt Count 268 (140-440) K/uL BMP 02/02/24 21:00 Sodium 135 Potassium 2.6 L* Chloride 94 L Carbon Dioxide 30 BUN 36 H Creatinine 0.6 Glucose 91 Calcium 9.1 Liver Function 02/02/24 Range/Units 21:00 Total Bilirubin 1.4 (0.1-1.5) mg/dL Direct Bilirubin 0.4 (0.0-0.5) mg/dL AST 96 H (12-35) U/L ALT 52 H (4-35) U/L Alkaline Phosphatase 97 (40-150) U/L Albumin 4.4 (3.3-5.0) g/dL Assessment and Plan Assessment and plan (1) Weakness: Status: Acute (2) Hypomagnesemia: Status: Inactive (3) Acute hypokalemia: Status: Acute (4) Fluid volume depletion: Status: Acute (5) Tachycardia: Status: Acute (6) Alcoholic liver disease: Problem comment: - stigmata: severe fatty liver, macrocytic anemia, pancytopenia, elevated INR and bilirubin. Normal creatinine, no ascites. MELD 9.0 11/2023 Status: Acute (7) Alcohol dependence with acute alcoholic intoxication with complication: Problem comment: - Admit etoh 0.37% - no evidence of withdrawal during stay Status: Acute (8) Acute hypokalemia: Status: Inactive (9) Alcohol withdrawal: Problem comment: Son reported mother drinks Rum and Coke daily and is not honest about her drinking. Withdrawal managed with phenobarbital during hospitalization. Continued MV and thiamine supplementation following discharge Status: Resolved Plan weakness?likely multifactorial hypo-hypomagnesium Aretha hypokalemia electrolyte abnormalities fluid depreciated probable chronic deconditioning. Will have her work with PT OT. She may need placement depending if she improves quickly with replacing her electrolytes. Hypomagnesemia improved we will give 2 g tonight we will check again in the morning. May need additional dosing. Acute hypokalemia?likely secondary to alcoholism may account may be a contribution from C. difficile and diarrhea. Will continue to replace. Magnesium needs to be replaced first time. Fluid volume depletion. Patient received 2 L of IV fluids in the emergency room. Will continue to encourage oral intake. Tachycardia?unclear etiology. Fever? Hypovolemia? Other. Appears to be resolved Underlying alcoholic liver disease, alcoholic dependence. Patient does not appear to be acutely intoxicated at the moment. Will place on alcohol withdrawal protocol. DVT prophylaxis will not be started as I anticipate a short hospital stay. CODE STATUS was reviewed on admission she wishes to be a full code. Telehealth: Statement Statement Telehealth Visit: Today's History and Physical is provided via interactive telehealth by Lv Ferrara DO.? Patient is located at [facility].? Provider is located at [facility].? Nursing staff assisted with the patient's exam. The visit being done today meets criteria for a telehealth visit and the patient or patient?s parent/guardian is aware the visit is a telehealth visit. Camera Start Time: 01:33 Camera End Time: :44
[2024-02-03] MEDS: 0.9 % SODIUM CHLORIDE 250 ml IV (03:03)
[2024-02-03] MEDS: MAGNESIUM IV 2 GM/50 ML PIGGYBACK IVPB (03:03)
[2024-02-03] MEDS: THIAMINE 100 MG TABLET PO (03:06)
[2024-02-03] MEDS: SODIUM CHLORIDE 0.9 % (FLUSH) 10 ML SYRINGE 5 ML IVF ×3 (03:07→21:11)
[2024-02-03 08:10] LABS: Chloride* 101 mmol/L (96-114); Sodium* 137 mmol/L (135-149)
[2024-02-03 08:13] LABS: Basophils Absolute Auto 0.04 K/uL (0.00-0.30); Basophils Percent Auto 0.8 % (0.0-3.0); Creatinine* 0.5 mg/dL (0.5-1.5); Eosinophils Absolute Auto 0.04 K/uL (0.00-0.50); Eosinophils Percent Auto 0.8 % (0.0-7.0); Est. Creatinine Clearance* 49.48; Estimated Glomerular Filt Rate 105 ml/min; Hematocrit 28.8 % (33.0-51.0); Hemoglobin* 9.6 gm/dL (12.0-16.0); Immature Granulocytes Abs Auto 0.01 K/uL (0.00-0.30); Immature Granulocytes Pct Auto 0.2 %; Lymphocytes Absolute Auto 1.14 K/uL (0.90-2.90); Lymphocytes Percent Auto 21.5 % (20-44); Mean Corpuscular HGB Conc 33 gm/dL (32-36); Mean Corpuscular Hemoglobin 36 pg (26-34); Mean Corpuscular Volume 108 fL (80-100); Monocytes Percent Auto 14.9 % (0.0-11.0); Neutrophils Absolute Auto 3.28 K/uL (1.7-7.0); Neutrophils Percent Auto 61.8 % (42.0-72.0); Platelet Count* 252 K/uL (140-440); RDW Coefficient of Variation % 13.5 % (11.5-15.5); Red Blood Count 2.68 m/uL (4.00-5.20)
[2024-02-03 08:14] LABS: Anion Gap 8 mEq/L (7-15); Blood Urea Nitrogen* 32 mg/dL (7-30); Calcium* 8.1 mg/dL (8.4-10.6); Carbon Dioxide* 28 mmol/L (20-32); Glucose* 83 mg/dL (60-115); Magnesium* 1.8 mg/dL (1.5-2.6)
[2024-02-03 08:21] LABS: Potassium* 2.6 mmol/L (3.6-5.1)
[2024-02-03 08:22] LABS: Slide Review Reflex No
[2024-02-03] MEDS: FOLIC ACID 1 MG TABLET PO (09:02)
[2024-02-03] MEDS: VANCOMYCIN 125 MG CAPSULE PO ×4 (09:02→21:12)
[2024-02-03] MEDS: POTASSIUM BICARB 25 MEQ EFFERVESCENT TAB PO ×4 (09:05→21:11)
--- NOTE | 2024-02-03 09:32 | PM.IMPN1 ---
Progress Note: A&P Assessment and plan (1) Weakness: Problem details: -acute on chronic recurrent. Agree multifactorial in setting of active C difficile infection, electrolyte imbalance, chronic deconditioning, alcohol dependence -PT/OT consults. financial services agent for discharge planning/placement needs which historically has been complicated Status: Acute (2) C. difficile diarrhea: Problem details: -stool C diff positive 02/01. Previous positive infections 12/22/2023 and 10/28/2023 -oral vancomycin q.i.d. x at least 10 days Status: Acute (3) Hypomagnesemia: Problem details: -magnesium improved to 1.8 following supplementation. Recheck in a.m. Status: Inactive (4) Acute hypokalemia: Problem details: -potassium 2.6 this morning following supplement. Will continue to supplement and monitor, rechecking this afternoon -her PCP recently discontinued her daily supplement as her potassium was trending too high Status: Acute (5) Fluid volume depletion: Problem details: -received 2 L IVF in ED. Encourage oral intake Status: Acute (6) Tachycardia: Problem details: -resolved Status: Acute (7) Alcoholic liver disease: Problem details: -stigmata: severe fatty liver, macrocytic anemia, pancytopenia, elevated INR and bilirubin. Normal creatinine, no ascites. MELD 9.0 11/2023 Status: Acute (8) Alcohol dependence: Problem details: -rum and Coke daily. Will add ETOH level from ED labs for baseline. Withdrawal protocol in case. -daily MVI, thiamine, folic acid Status: Acute Plan Continue oral vancomycin for C difficile infection. Electrolyte correction. Therapies. Will likely discharge to home, with known history of recurrent admissions. Per social sciences department chair, son has started paperwork for guardianship. Court case is set for February. Time Spent With Patient Total time spent: Total time spent caring for the patient today was 45 minutes. This includes time spent for the visit reviewing the chart, time spent during the visit, time spent after the visit and documentation and planning in coordination of care. Subjective Date Seen: 02/03/24 Interval history: Patient was admitted by our telehealth service earlier this morning. She reports feeling better this morning. Just had another loose stool. Denies abdominal pain. Remains weak but feeling better than on admission. Denies nausea. Tolerating orals. Tachycardia has resolved. Has remained vitally stable Exam Narrative: Exam Narrative: PHYSICAL EXAM General: Pleasant, conversant, NAD HEENT: Normocephalic, atraumatic, sclera white, EOMI, oral mucosa dry Cardiovascular: RRR, S1S2. No pitting edema Pulmonary: CTA bilaterally without rhonchi, rales, expiratory wheezes. No dyspnea on room air Abdominal: Soft, nondistended, NTTP Neurological: Alert, answering questions appropriately, cranial nerves intact, no focal findings Extremities: No gross joint deformity or swelling. AROMI. Neurovascularly intact Skin: Warm, dry. Const: Vital Signs, click to edit/add: Vital Signs - 24 hr 02/02/24 20:16 02/02/24 20:34 02/02/24 20:45 Temperature 97.7 F Pulse Rate 141 H 129 H Pulse Rate [Pulse Oximeter] Pulse Rate [Right Pulse Oximeter] 131 H Respiratory Rate 22 Blood Pressure Blood Pressure [Le ft Upper Arm] 135/105 H Blood Pressure [Ri ght Arm] Pulse Oximetry 98 97 96 Oxygen Delivery Me thod Room Air 02/02/24 21:15 02/02/24 21:16 02/02/24 21:17 Temperature Pulse Rate 112 H 136 H 92 Pulse Rate [Pulse Oximeter] Pulse Rate [Right Pulse Oximeter] Respiratory Rate Blood Pressure 125/93 H Blood Pressure [Le ft Upper Arm] Blood Pressure [Ri ght Arm] Pulse Oximetry 99 98 98 Oxygen Delivery Me thod 02/02/24 21:30 02/02/24 21:41 02/02/24 21:45 Temperature Pulse Rate 108 H 112 H 126 H Pulse Rate [Pulse Oximeter] Pulse Rate [Right Pulse Oximeter] Respiratory Rate Blood Pressure 141/89 H Blood Pressure [Le ft Upper Arm] Blood Pressure [Ri ght Arm] Pulse Oximetry 97 98 98 Oxygen Delivery Me thod 02/02/24 22:00 02/02/24 22:15 02/02/24 22:30 Temperature Pulse Rate 144 H 136 H 85 Pulse Rate [Pulse Oximeter] Pulse Rate [Right Pulse Oximeter] Respiratory Rate Blood Pressure Blood Pressure [Le ft Upper Arm] Blood Pressure [Ri ght Arm] Pulse Oximetry 99 100 96 Oxygen Delivery Me thod 02/02/24 22:45 02/02/24 22:57 02/02/24 23:00 Temperature Pulse Rate 77 76 77 Pulse Rate [Pulse Oximeter] Pulse Rate [Right Pulse Oximeter] Respiratory Rate Blood Pressure 118/75 Blood Pressure [Le ft Upper Arm] Blood Pressure [Ri ght Arm] Pulse Oximetry 96 98 97 Oxygen Delivery [facility] 02/02/24 23:15 02/02/24 23:30 02/02/24 23:45 Temperature Pulse Rate 75 84 82 Pulse Rate [Pulse Oximeter] Pulse Rate [Right Pulse Oximeter] Respiratory Rate Blood Pressure Blood Pressure [Le ft Upper Arm] Blood Pressure [Ri ght Arm] Pulse Oximetry 97 96 97 Oxygen Delivery [facility] 02/03/24 00:00 02/03/24 00:15 02/03/24 00:30 Temperature Pulse Rate 74 83 80 Pulse Rate [Pulse Oximeter] Pulse Rate [Right Pulse Oximeter] Respiratory Rate Blood Pressure Blood Pressure [Le ft Upper Arm] Blood Pressure [Ri ght Arm] Pulse Oximetry 97 97 97 Oxygen Delivery [facility] 02/03/24 00:55 02/03/24 00:55 02/03/24 02:00 Temperature 98.3 F 98.3 F Pulse Rate Pulse Rate [Pulse Oximeter] 82 82 Pulse Rate [Right Pulse Oximeter] Respiratory Rate 16 16 16 Blood Pressure Blood Pressure [Le ft Upper Arm] Blood Pressure [Ri ght Arm] 126/81 126/81 Pulse Oximetry 96 96 96 Oxygen Delivery [facility] Room Air Room Air Room Air 02/03/24 04:00 02/03/24 05:08 02/03/24 07:00 Temperature Pulse Rate Pulse Rate [Pulse Oximeter] Pulse Rate [Right Pulse Oximeter] Respiratory Rate 16 16 16 Blood Pressure Blood Pressure [Le ft Upper Arm] Blood Pressure [Ri ght Arm] Pulse Oximetry Oxygen Delivery [facility] Room Air 02/03/24 07:59 Temperature 97.7 F Pulse Rate Pulse Rate [Pulse Oximeter] 76 Pulse Rate [Right Pulse Oximeter] Respiratory Rate 16 Blood Pressure Blood Pressure [Le ft Upper Arm] Blood Pressure [Ri ght Arm] 124/84 Pulse Oximetry 95 Oxygen Delivery [facility] Room Air Labs Labs: Laboratory Results - last 24 hr 02/02/24 02/02/24 02/02/24 20:26 20:43 21:00 WBC 6.42 RBC 2.97 L Hgb 10.6 L Hct 31.0 L MCV 104 H MCH 36 H MCHC 34 RDW Coeff of Katina 13.0 Plt Count 268 Neut % (Auto) 68.3 Lymph % (Auto) 16.7 L [place] % (Auto) 14.3 H Eos % (Auto) 0.2 Baso % (Auto) 0.3 Neut # (Auto) 4.39 Lymph # (Auto) 1.10 [place] # (Auto) 0.90 Eos # (Auto) 0.01 Baso # (Auto) 0.02 Abs Immat Gran (auto) 0.01 Imm/Tot Granulo (auto) 0.2 Sodium 135 Potassium 2.6 L* Chloride 94 L Carbon Dioxide 30 Anion Gap 11 BUN 36 H Creatinine 0.6 Estimated Creat Clear 48.24 Estimated GFR 101 Glucose 91 Calcium 9.1 Magnesium 1.1 L Total Bilirubin 1.4 Direct Bilirubin 0.4 AST 96 H ALT 52 H Alkaline Phosphatase 97 C-Reactive Protein 1.9 H Total Protein 7.7 Albumin 4.4 Stl C. diff Tox B Gene Stl C. diff 027-NAP1-BI SARS-CoV-2 (PCR) Negative SARS-CoV-2 Influenza Type A (PCR) Negative PCR FLU A Influenza Type B (PCR) Negative PCR FLU B RSV (PCR) Negative PCR RSV POC Troponin I 0.02 02/02/24 02/03/24 23:45 07:51 WBC 5.30 RBC 2.68 L Hgb 9.6 L Hct 28.8 L MCV 108 H MCH 36 H MCHC 33 RDW Coeff of [place] 13.5 Plt Count 252 Neut % (Auto) 61.8 Lymph % (Auto) 21.5 [place] % (Auto) 14.9 H Eos % (Auto) 0.8 Baso % (Auto) 0.8 Neut # (Auto) 3.28 Lymph # (Auto) 1.14 [place] # (Auto) 0.80 Eos # (Auto) 0.04 Baso # (Auto) 0.04 Abs Immat Gran (auto) 0.01 Imm/Tot Granulo (auto) 0.2 Sodium 137 Potassium 2.6 L* Chloride 101 Carbon Dioxide 28 Anion Gap 8 BUN 32 H Creatinine 0.5 Estimated Creat Clear 49.48 Estimated GFR 105 Glucose 83 Calcium 8.1 L Magnesium 1.8 Total Bilirubin Direct Bilirubin AST ALT Alkaline Phosphatase C-Reactive Protein Total Protein Albumin Stl C. diff Tox B Gene POSITIVE A* Stl C. diff 027-NAP1-BI PRESUMPTIVE NEGATIVE SARS-CoV-2 (PCR) Influenza Type A (PCR) Influenza Type B (PCR) RSV (PCR) POC Troponin I
--- NOTE | 2024-02-03 09:41 | PC.SOCIAL ---
Addendum entered by BRANDY Montes 02/03/24 12:03: Discharge planning: child welfare caseworker discussed pt with Hospitalist on staff. It was confirmed that pt's weakness and electrolyte imbalance is being caused by her positive C-diff infection and not from alcohol intoxication and/or withdrawal. child welfare caseworker will update Bambi with [facility] with this information. Social work to follow-up as needed. Addendum entered by BRANDY Montes 02/03/24 11:56: Discharge planning: child welfare caseworker met with pt to discuss discharge planning. Pt would like to return home after this hospital stay and has no concerns about returning home by herself. Social work will continue to check-in with pt during her stay here and will update Bambi with [facility]. Social work to follow-up as needed. Original Note: Discharge planning: child welfare caseworker received a call from Bambi Koroma with [facility]. Bambi is still working/has an open case with the pt. Bambi stated that she received more reports on the pt from EMS, police and pt's [id number] over the weekend. [id number] stated that pt was found on the floor three days in a row at her apartment by her and pt's son before she finally agreed to go to the hospital. Bambi stated that pt's son has filed for guardianship, but the hearing is not until March 13, 2024, as it was not listed as an emergency at that time, but might qualify as an emergency now that the pt is in the hospital again. Bambi asked to be notified of any major updates throughout the pt's hospital stay. Social work to follow-up as needed.
[2024-02-03 10:01] LABS: Ethanol* < 0.01 % (0.01-0.03)
[2024-02-03] MEDS: NICOTINE 14 mg PATCH 1 PATCH TOPICAL (10:43)
[2024-02-03 14:25] LABS: Potassium* 2.8 mmol/L (3.6-5.1)
--- NOTE | 2024-02-03 19:58 | PC.NURSE ---
Patient alert and oriented, ambulastingh
--- NOTE | 2024-02-03 20:01 | PC.NURSE ---
Patient alert and oriented x4. up to br with walker SBA. Patient VSS, tolerating a reg diet. Denies SOB, pain, NV.
[2024-02-03] MEDS: MAGNESIUM OXIDE 400 MG TABLET PO (21:12)
[2024-02-03] MEDS: METOPROLOL TARTRATE 25 MG TABLET 12.5 MG PO (21:12)
[2024-02-03] MEDS: ACETAMINOPHEN 325 MG TABLET PO (21:12)
[2024-02-04 03:15] VITALS: BP 155/107; PULSE 85; RESP 20; TEMP 36.6; O2SAT 97
--- NOTE | 2024-02-04 05:03 | PC.NURSE ---
[id number]: Patient pleasant and cooperative. Denies pain/N/V. SBA w/walker. No BM during shift. No complaints or concerns overnight.
[2024-02-04 06:32] LABS: Hemoglobin* 9.9 gm/dL (12.0-16.0); Mean Corpuscular HGB Conc 33 gm/dL (32-36); Mean Corpuscular Hemoglobin 36 pg (26-34); Mean Corpuscular Volume 110 fL (80-100); Platelet Count* 254 K/uL (140-440); Red Blood Count 2.72 m/uL (4.00-5.20); White Blood Count* 5.39 K/uL (4.50-11.00)
[2024-02-04 06:45] LABS: Slide Review Reflex No
[2024-02-04 06:54] LABS: Chloride* 101 mmol/L (96-114); Potassium* 3.5 mmol/L (3.6-5.1); Sodium* 137 mmol/L (135-149)
[2024-02-04 06:57] LABS: Anion Gap 0 mEq/L (7-15); Blood Urea Nitrogen* 27 mg/dL (7-30); Calcium* 8.9 mg/dL (8.4-10.6); Carbon Dioxide* 36 mmol/L (20-32); Creatinine* 0.4 mg/dL (0.5-1.5); Est. Creatinine Clearance* 49.77; Estimated Glomerular Filt Rate 111 ml/min; Glucose* 100 mg/dL (60-115)
[2024-02-04 06:58] LABS: Magnesium* 1.4 mg/dL (1.5-2.6)
[2024-02-04 07:50] VITALS: BP 148/99; PULSE 87; RESP 18; TEMP 36.6; O2SAT 98
[2024-02-04] MEDS: SODIUM CHLORIDE 0.9 % (FLUSH) 10 ML SYRINGE 5 ML IVF ×2 (08:06→20:18)
[2024-02-04] MEDS: POTASSIUM BICARB 25 MEQ EFFERVESCENT TAB PO (08:08)
[2024-02-04] MEDS: LOSARTAN POTASSIUM 50 MG TABLET PO (08:11)
[2024-02-04] MEDS: VANCOMYCIN 125 MG CAPSULE PO ×4 (08:11→20:18)
[2024-02-04] MEDS: FOLIC ACID 1 MG TABLET PO ×2 (08:11)
[2024-02-04] MEDS: ASPIRIN 81 MG TABLET EC PO (08:11)
[2024-02-04] MEDS: SERTRALINE 100 MG TABLET PO (08:11)
[2024-02-04] MEDS: POTASSIUM CHLORIDE 10 MEQ CAPSULE ER 20 MEQ PO ×2 (08:12→16:50)
[2024-02-04] MEDS: THIAMINE 100 MG TABLET PO (08:13)
[2024-02-04] MEDS: ACETAMINOPHEN 325 MG TABLET PO (09:12)
[2024-02-04] MEDS: METOPROLOL TARTRATE 25 MG TABLET 12.5 MG PO ×2 (09:13→20:18)
[2024-02-04] MEDS: MAGNESIUM OXIDE 400 MG TABLET PO ×2 (09:14→20:17)
--- NOTE | 2024-02-04 09:38 | PM.IMPN1 ---
Progress Note: A&P Assessment and plan (1) Weakness: Problem details: -acute on chronic recurrent. Agree multifactorial in setting of active C difficile infection, electrolyte imbalance, chronic deconditioning, alcohol dependence -PT/OT consults. environmental services floor tech for discharge planning and possible placement needs which historically has been complicated Status: Acute (2) C. difficile diarrhea: Problem details: -stool C diff positive 02/01. Previous positive infections 12/22/2023 and 10/28/2023 -oral vancomycin q.i.d. x at least 10 days, and will need tapering thereafter. Status: Acute (3) Hypomagnesemia: Problem details: -magnesium improving, but still low and requiring additional supplementation and monitoring. Status: Inactive (4) Acute hypokalemia: Problem details: -potassium 2.6 on admission and improving. Will continue to supplement and monitor. -her PCP recently discontinued her daily supplement as her potassium was trending too high... Status: Acute (5) Fluid volume depletion: Problem details: -received 2 L IVF in ED. Tolerating oral intake. -check orthostatic BP and HR Status: Acute (6) Tachycardia: Problem details: -resolved Status: Acute (7) Alcoholic liver disease: Problem details: -stigmata: severe fatty liver, macrocytic anemia, pancytopenia, elevated INR and bilirubin. Normal creatinine, no ascites. MELD 9.0 11/2023 Status: Acute (8) Alcohol dependence: Problem details: -rum and Coke daily. Will add ETOH level from ED labs for baseline. Withdrawal protocol in case. -daily MVI, thiamine, folic acid Status: Acute Plan 1, Reviewed with patient. She is agreeable with continued support and consideration of possible discharge tomorrow. Time Spent With Patient Total time spent: 30 minutes Subjective Date Seen: 02/04/24 Interval history: Patient was admitted by our telehealth service early in the morning of 02/03/24. She presented with profound weakness, unable to stand or walk. Also had lightheadedness and orthostasis. Had intermittent loose stools. Unclear about her compliance to her medication regimen or her abstinence from alcohol - she indicates she is not drinking. Her admission potassium was low at 2.6 and her magnesium level was low 1.0. She feels better this morning. Denies abdominal pain, dyspepsia, nausea, or vomiting. Still having intermittent episodes of loose stool, but not as watery as when she presented. Tolerating orals intake. Exam Narrative: Exam Narrative: Appears comfortable and in no acute distress. Vision and hearing are adequate. Alert and oriented to self, place, time, and situation. Friendly and cooperative. No icterus or conjunctival injection. No jaundice, petechiae, cyanosis or rashes. Broad based gait, but independent with transfers and gait, albeit slowly. Lungs are clear to auscultation. Hear tones with regular rhythm and normal S1S2. Abdomen with active bowel sounds. IV in dorsum of foot and running. Potassium 3.5 and magnesium 1.4 this morning. Const: Vital Signs, click to edit/add: Vital Signs - 24 hr 02/03/24 11:00 02/03/24 15:00 02/03/24 15:00 Temperature 98.4 F 98.0 F Pulse Rate [Apical ] Pulse Rate [Pulse Oximeter] 83 98 98 Respiratory Rate 16 16 16 Blood Pressure [Ri ght Arm] 113/81 134/85 Pulse Oximetry 96 98 Oxygen Delivery Me thod Room Air Room Air 02/03/24 20:09 02/03/24 21:00 02/03/24 22:38 Temperature 98.6 F 98.6 F 99.0 F Pulse Rate [Apical ] Pulse Rate [Pulse Oximeter] 92 92 83 Respiratory Rate 18 18 20 Blood Pressure [Ri ght Arm] 154/89 H 154/89 H 145/90 H Pulse Oximetry 96 96 98 Oxygen Delivery Me thod Room Air Room Air Room Air 02/04/24 03:15 02/04/24 03:15 02/04/24 07:50 Temperature 97.8 F 97.8 F 98 F Pulse Rate [Apical ] 87 Pulse Rate [Pulse Oximeter] 85 85 Respiratory Rate 20 20 18 Blood Pressure [Ri ght Arm] 155/107 H 155/107 H 148/99 H Pulse Oximetry 97 97 98 Oxygen Delivery Me thod Room Air Room Air Room Air Documenting provider has reviewed patient's vital signs: yes Labs Labs: Laboratory Results - last 24 hr 02/03/24 02/03/24 02/03/24 07:51 09:41 13:53 WBC RBC Hgb Hct MCV MCH MCHC Plt Count Sodium Potassium 2.8 L* Chloride Carbon Dioxide Anion Gap BUN Creatinine Estimated Creat Clear Estimated GFR Glucose Calcium Magnesium Ethyl Alcohol < 0.01 L Lab Acknowledgement Test Added 02/04/24 06:16 WBC 5.39 RBC 2.72 L Hgb 9.9 L Hct 30.0 L MCV 110 H MCH 36 H MCHC 33 Plt Count 254 Sodium 137 Potassium 3.5 L Chloride 101 Carbon Dioxide 36 H Anion Gap 0 L BUN 27 Creatinine 0.4 L Estimated Creat Clear 49.77 Estimated GFR 111 Glucose 100 Calcium 8.9 Magnesium 1.4 L Ethyl Alcohol Lab Acknowledgement
[2024-02-04 11:00] VITALS: BP 144/98; BP 153/107; BP 159/105; BP 161/96; PULSE 72; PULSE 76; PULSE 82; PULSE 92; RESP 18; TEMP 36.2; O2SAT 97
[2024-02-04] MEDS: NICOTINE 14 mg PATCH 1 PATCH TOPICAL (12:41)
[2024-02-04 13:32] LABS: Magnesium* 1.6 mg/dL (1.5-2.6)
--- NOTE | 2024-02-04 14:35 | PC.NURSE ---
shift note: pt had 2 small mushy stools with large amounts of flatus. Pt denies pain. IV to rt ankle intact/patent.
--- NOTE | 2024-02-04 14:51 | PC.SOCIAL ---
Discharge planning: general office worker met with pt today to discuss any concerns about going home that she may have. Pt stated that she still feels good about going home and has no concerns about being alone. Discussed with pt the importance of wearing her life alert pendant all the time, so she can call for help if she falls and does not have her phone with her. general office worker also spoke to pt about transportation to and from her follow-up doctor's appointments that she will be going to and the pt stated that she still drives and was not interested in any resources on medical transportation or seeing if her insurance would cover the transportation. general office worker also talked to pt about resources for Alcoholics Anonymous and gave her a list of local AA meetings. Pt stated that she didn't feel she had an issue with drinking too much, but was thankful for the information. Pt stated that she plans to take a cab home tomorrow at discharge. Social work to follow-up as needed.
[2024-02-04 15:00] VITALS: BP 156/101; PULSE 82; RESP 16; TEMP 36.4; O2SAT 97
[2024-02-04 19:00] VITALS: BP 146/91; PULSE 78; RESP 18; TEMP 37.2; O2SAT 98
[2024-02-04 23:00] VITALS: PULSE 78; RESP 18
[2024-02-05 03:00] VITALS: BP 171/98; PULSE 80; RESP 16; TEMP 36.8; O2SAT 96
--- NOTE | 2024-02-05 06:03 | PC.NURSE ---
End of shift [id number]: Patient alert and oriented x 4. Pleasant and cooperative with cares. Denied any pain throughout the shift. Ambulates independently with standard walker. Patient reported having 3 loose bm's prior to HS then 2 loose bm's overnight.
[2024-02-05 06:23] LABS: HCO3 VBG 33 mmol/L (21-28); PCO2 VBG 41 mmHG (40-50); PO2 VBG 61.9 mmHG (25-47); pH VBG 7.514 (7.32-7.43)
[2024-02-05 06:29] LABS: Hematocrit 29.8 % (33.0-51.0); Hemoglobin* 9.8 gm/dL (12.0-16.0); Mean Corpuscular HGB Conc 33 gm/dL (32-36); Mean Corpuscular Hemoglobin 36 pg (26-34); Mean Corpuscular Volume 109 fL (80-100); Platelet Count* 261 K/uL (140-440); Red Blood Count 2.73 m/uL (4.00-5.20); White Blood Count* 6.02 K/uL (4.50-11.00)
[2024-02-05 06:31] LABS: Slide Review Reflex No
[2024-02-05 06:40] LABS: Chloride* 101 mmol/L (96-114)
[2024-02-05 06:41] LABS: Potassium* 3.6 mmol/L (3.6-5.1); Sodium* 136 mmol/L (135-149)
[2024-02-05 06:43] LABS: Creatinine* 0.4 mg/dL (0.5-1.5); Est. Creatinine Clearance* 48.74; Estimated Glomerular Filt Rate 111 ml/min
[2024-02-05 06:44] LABS: Anion Gap 3 mEq/L (7-15); Blood Urea Nitrogen* 18 mg/dL (7-30); Calcium* 9.1 mg/dL (8.4-10.6); Carbon Dioxide* 32 mmol/L (20-32); Glucose* 97 mg/dL (60-115); Magnesium* 1.2 mg/dL (1.5-2.6); Phosphorus* 3.2 mg/dL (2.5-4.5)
[2024-02-05 08:45] VITALS: BP 112/93; BP 122/95; BP 125/95; PULSE 78; PULSE 81; PULSE 90
[2024-02-05] MEDS: POTASSIUM CHLORIDE 10 MEQ CAPSULE ER 20 MEQ PO (08:56)
[2024-02-05] MEDS: ASPIRIN 81 MG TABLET EC PO (08:57)
[2024-02-05] MEDS: THIAMINE 100 MG TABLET PO (08:57)
[2024-02-05] MEDS: METOPROLOL TARTRATE 25 MG TABLET 12.5 MG PO (08:57)
[2024-02-05] MEDS: SERTRALINE 100 MG TABLET PO (08:57)
[2024-02-05] MEDS: MAGNESIUM OXIDE 400 MG TABLET PO (08:58)
[2024-02-05] MEDS: VANCOMYCIN 125 MG CAPSULE PO ×2 (08:58→13:07)
[2024-02-05] MEDS: LOSARTAN POTASSIUM 50 MG TABLET PO (08:58)
[2024-02-05] MEDS: ACETAMINOPHEN 325 MG TABLET PO (09:02)
--- NOTE | 2024-02-05 16:14 | P.DS_ITS ---
DS: Providers Provider Date Seen: 02/05/24 Date of admission: 02/03/24 07:47 Primary care physician: LIDIA CAMPOS DO Admitting Clinician: Lv Ferrara DO Consults: 02/03/24 01:50 Consult to Physical Therapy [CONS] Routine Comment: Reason(s) for PT Consult:: Weakness Any Restrictions?:: No Restrictions 02/03/24 01:51 Consult to Occupational Therapy [CONS] Routine Comment: Reason(s) for OT Consult:: Evaluate and Treat Any Restrictions?:: No Restrictions Attending Physician on discharge: Saud Bolivar MD Date of Discharge: 02/05/24 DS: Diagnosis Discharge Diagnosis (1) Chronic diarrhea: Status: Acute (2) C. difficile diarrhea: Status: Acute Problem details: -stool C diff positive 02/01. Previous positive infections 12/22/2023 and 10/28/2023 -oral vancomycin q.i.d. x at least 10 days, and will need tapering thereafter. (3) Noncompliance by refusing intervention or support: Status: Acute (4) Acute hypokalemia: Status: Acute Problem details: -potassium 2.6 on admission and improving. Will continue to supplement and monitor. -her PCP recently discontinued her daily supplement as her potassium was trending too high... (5) Hypomagnesemia: Status: Acute (6) Weakness: Status: Acute Problem details: -acute on chronic recurrent. Agree multifactorial in setting of active C difficile infection, electrolyte imbalance, chronic deconditioning, alcohol dependence -PT/OT consults. web services professional for discharge planning and possible placement needs which historically has been complicated (7) Alcohol dependence: Status: Acute Problem details: -rum and Coke daily. Will add ETOH level from ED labs for baseline. Withdrawal protocol in case. -daily MVI, thiamine, folic acid (8) Alcoholic liver disease: Status: Acute Problem details: -stigmata: severe fatty liver, macrocytic anemia, pancytopenia, elevated INR and bilirubin. Normal creatinine, no ascites. MELD 9.0 11/2023 (9) Fluid volume depletion: Status: Acute Problem details: -received 2 L IVF in ED. Tolerating oral intake. -check orthostatic BP and HR (10) Tachycardia: Status: Acute Problem details: -resolved DS: Summary Hospital Course Hospital Course: Patient was admitted by our telehealth service early in the morning of 02/03/24. She presented with profound weakness, unable to stand or walk. Also had lightheadedness and orthostasis. Had intermittent loose stools. Unclear about her compliance to her medication regimen or her abstinence from alcohol - she indicates she is not drinking. Her admission potassium was low at 2.6 and her magnesium level was low 1.0. She had no evidence of alcohol withdrawal in hospital. Admission blood alcohol level normal. Potassium was replaced via intravenous route as well as oral route. Magnesium replacement also via intravenous and oral route. Diarrhea waxed and waned during her hospital stay. Recommended patient receive additional cares including the possibility of assisted living versus additional support and services in her home which she refused and declined. She states she has quit drinking any alcohol and does not intend to continue to drink alcohol hereafter. I explained to her that she no longer has an option in this regard because the alcohol is now poison to her. If she chooses to continue to drink alcohol hereafter that she will continue to inflict harm upon herself. Refused any additional support or help in regard to short-term or long-term alcohol abstinence and treatment of alcoholism. States she will complete the full course of vancomycin and follow up with her primary care physician in regard to a tapering dose of the vancomycin. Refuse to allow is to call and discuss her case with her [id number] whom she states is in town. Urged her to have close follow-up with her primary care physician, which she states she will do. Status at Discharge Overall status at discharge: patient is back to baseline Time Spent with Patient Time attestation: Total time spent providing and/or coordinating discharge services: Time spent: Greater than 30 minutes Exam Narrative: Exam Narrative: No orthostatic changes on date of discharge noted. Appears comfortable and in no acute distress. Vision and hearing are adequate. Alert and oriented to self, place, time, and situation. Friendly and cooperative. No icterus or conjunctival injection. No jaundice, petechiae, cyanosis or rashes. Broad based gait, but independent with transfers and gait, albeit slowly. Lungs are clear to auscultation. Hear tones with regular rhythm and normal S1S2. Abdomen with active bowel sounds. IV in dorsum of foot has been removed. Const: Vital Signs, click to edit/add: Vital Signs - 24 hr 02/04/24 19:00 02/04/24 23:00 02/05/24 03:00 Temperature 98.9 F 98.2 F Pulse Rate [Pulse Oximeter] 78 78 80 Pulse Rate [orthos tatic lying Right Pulse Oximeter] Pulse Rate [orthos tatic sitting Righ t Pulse Oximeter] Pulse Rate [orthos tatic standing Rig ht Pulse Oximeter] Respiratory Rate 18 18 16 Blood Pressure [Ri ght Arm] 146/91 H 171/98 H Blood Pressure [or thostatic lying Ri ght Arm] Blood Pressure [or thostatic sitting Right Arm] Blood Pressure [or thostatic standing Right Arm] Pulse Oximetry 98 96 Oxygen Delivery Me thod Room Air Room Air 02/05/24 08:45 Temperature Pulse Rate [Pulse Oximeter] Pulse Rate [orthos tatic lying Right Pulse Oximeter] 81 Pulse Rate [orthos tatic sitting Righ t Pulse Oximeter] 78 Pulse Rate [orthos tatic standing Rig ht Pulse Oximeter] 90 Respiratory Rate Blood Pressure [Ri ght Arm] Blood Pressure [or thostatic lying Ri ght Arm] 125/95 H Blood Pressure [or thostatic sitting Right Arm] 122/95 H Blood Pressure [or thostatic standing Right Arm] 112/93 H Pulse Oximetry Oxygen Delivery Me thod Documenting provider has reviewed patient's vital signs: yes DS: Data Data Completed and Pending Completed studies during hospitalization: Procedures Detoxification Services for Substance Abuse Treatment (12/22/23) Labs on day of discharge: Labs from last 24 hours 02/05/24 05:55 WBC 6.02 RBC 2.73 L Hgb 9.8 L Hct 29.8 L MCV 109 H MCH 36 H MCHC 33 Plt Count 261 VBG pH 7.514 H VBG pCO2 41 VBG pO2 61.9 H VBG HCO3 33 H Sodium 136 Potassium 3.6 Chloride 101 Carbon Dioxide 32 Anion Gap 3 L BUN 18 Creatinine 0.4 L Estimated Creat Clear 48.74 Estimated GFR 111 Glucose 97 Calcium 9.1 Phosphorus 3.2 Magnesium 1.2 L Discharge Plan Discharge Disposition: Home, Self-Care Date of Admission: 02/03/24 07:47 Attending Provider on Discharge: Saud Bolivar Primary Care Provider: LIDIA CAMPOS Condition: Improved Anticipated Discharge Date/Time: 02/05/24 13:00 Discharge Medications: New Metamucil 3.4 gram/5.4 gram powder 1 tbsp PO BID Qty: 660 0RF Rx Instructions: mix into at least 8 oz of water or juice before administering magnesium oxide 400 mg magnesium tablet 400 mg PO TID Qty: 90 0RF vancomycin 125 mg Capsule 125 mg PO QID 12 Days Qty: 48 0RF potassium chloride 20 mEq tablet,ER particles/crystals 40 meq PO BID Qty: 180 3RF loperamide 2 mg tablet 2 mg PO QID PRN (Reason: loose stool) Qty: 20 0RF Continued thiamine mononitrate (vit B1) [Vitamin B-1 (mononitrate)] 100 mg Tablet 100 mg PO DAILY Qty: 30 0RF folic acid 1 mg tablet 1 mg PO DAILY cyanocobalamin (vitamin B-12) 1,000 mcg tablet 1,000 mcg PO DAILY acamprosate 333 mg tablet,delayed release (DR/EC) 666 mg PO 3XD multivitamin Tablet 1 tab PO DAILY metoprolol tartrate 25 mg Tablet 12.5 mg PO BID calcium carbonate [Oyster Shell Calcium] 500 mg calcium (1,250 mg) tablet 500 mg PO DAILY aspirin 81 mg tablet,delayed release (DR/EC) 81 mg PO DAILY sertraline 50 mg tablet 100 mg PO DAILY losartan 25 mg tablet 50 mg PO DAILY albuterol sulfate [Ventolin HFA] 90 mcg/actuation HFA aerosol inhaler 2 inh inhalation Q4H PRN nicotine 14 mg/24 hr Patch 24 Hour 1 patch topical Q24H Qty: 15 0RF Discontinued Metamucil 3.4 gram/5.4 gram powder 1 tbsp PO DAILY PRN Rx Instructions: mix into at least 8 oz of water or juice before administering magnesium oxide 400 mg (241.3 mg magnesium) tablet 400 mg PO BID Discharge Orders: Discharge Order (Routine); Ordered 02/05/24 Ordered By: Saud Bolivar Patient Education: Loperamide (By mouth), Potassium Chloride (By mouth), Vancomycin (By mouth), Magnesium (By mouth), Potassium Content of Foods List (DC), Hypokalemia (DC), C. Diff (Clostridioides Difficile) Infection (DC), Hypomagnesemia (DC), Alcohol Dependence (DC) Additional Instructions: 1. Primary care physician in 3-7 days, with pre-visit CBC, BMP, and magnesium le vels. Activity Level: Activity as Tolerated Discharge Diet: Regular Diet Detail: 100% abstinence from any and all alcohol containing drinks and products. Follow Up Appointments: Provider,Not a Local [Referring] - LIDIA CAMPOS DO [Primary Care Provider] - 02/10/24 12:50 pm ([facility] for follow-up and to have CBC, BMP and Magnesium checked.) Forms: True Style Info Instructions
--- NOTE | 2024-02-05 16:52 | PC.NURSE ---
Discharge Note: The patient discharged home via taxi service due to son/daughter in law not being available to transport the patient home. All discharge instructions were provided and reviewed regarding abstinence from drinking and to complete the course of antibiotics. The patient uses a walker to ambulate at home. JANNETH ROSA BSN
--- NOTE | 2024-02-07 12:53 | PC.SOCIAL ---
Discharge planning: kitchen and counter worker sent pt's discharge summary to Bambi Koroma at [facility] per her request via secure email. Social work to follow-up as needed.
== END 2024-02-05 15:00 | disposition home or self-care (01) | DRG 372 ==
LOC: ED 23:16 → MEDSURG 02-03 00:46
PROVIDERS: Internal Medicine; Physician Assistant; Admitting Provider Internal Medicine; Emergency Provider Emergency Medicine Emergency Medical Services; PCP Student in an Organized Health Care Education/Training Program; Visit Provider Internal Medicine
DX: A04.72 Enterocolitis due to Clostridium difficile, not specified as recurrent (principal); D61.818 Other pancytopenia; I47.10 Supraventricular tachycardia, unspecified; E83.42 Hypomagnesemia; F10.20 Alcohol dependence, uncomplicated; K70.0 Alcoholic fatty liver; E87.6 Hypokalemia; R53.1 Weakness; D53.9 Nutritional anemia, unspecified; Z91.199 Patient's noncompliance with other medical treatment and regimen due to unspecified reason; Z87.891 Personal history of nicotine dependence
CPT/HCPCS: 36415; 80048; 80076; 82077; 82803; 83735; 84100; 84132; 84484; 85025; 85027; 86140; 87493; 87631; 93005; 94761; 97112; 97116; 97161; 97165; 97530; 97535; 99284; 99285; A9270; G0378; J3475; J7030; J7050; S4990

== ENCOUNTER 2024-03-06 15:49 | Emergency (ER) | payer MEDICAID, SELFPAY ==
[2024-03-06] VITALS (18 sets, daily range): BP systolic 141–155; BP diastolic 83–95; PULSE 94–162; RESP 18; O2SAT 95–99; BMI 18.2
--- NOTE | 2024-03-06 16:03 | CT_ITS ---
Patient: MINDA EDWARDS Facility:?[facility] Patient ID:?[id number] Site Patient ID:?[id number]. Site :?[id number] Study:?CT-Facial w/o-03/06/2024 4:24:47 PM Ordering Physician:Jean Hicks Final Report: Indication: Fall, hit left eye Technique: Volumetric multidetector CT images of the facial bones were obtained without the administration of IV contrast. Comparison: None available. Findings: There is demonstration of crescentic fluid collection overlying the right cerebral convexity. Minimal chronic mucosal thickening in the right frontal sinus. No evidence of air-fluid level. Additional mucoperiosteal thickening in the maxillary sinuses. Marked left periorbital, preseptal soft tissue swelling with a small supraorbital soft tissue laceration. No evidence of postseptal hematoma. No evidence of underlying bony fracture. The zygomatic arches are grossly intact. The bilateral maxillae are intact. The pterygoid plates are grossly intact. The nasal bones and anterior nasal spine are intact without displaced fracture. The mandible is grossly well located. The partially visualized cervical spine demonstrates moderate to severe degenerative disc disease. Impression: Marked left periorbital, preseptal soft tissue swelling with a small supraorbital soft tissue laceration. No evidence of postseptal hematoma. No evidence of underlying bony orbital fracture. Please note that all CT scans at this facility use dose modulation, iterative reconstruction, and/or weight-based dosing when appropriate to reduce radiation dose to as low as reasonably achievable. Dictated by Karlo Chew MD @ 03/06/2024 5:04:37 PM Signed by:?Karlo Chew MD @03/06/2024 5:04:37 PM (Electronic Signature)
--- NOTE | 2024-03-06 16:03 | CT_ITS ---
Patient: MINDA EDWARDS Facility:?[facility] Patient ID:?[id number] Site Patient ID:?[id number]. Site :?[id number] Study:?CT-Head w/o-03/06/2024 4:24:24 PM Ordering Physician:Jean Hicks Final Report: Indication: Fall, hit left eye Technique: Volumetric multidetector CT images of the head were obtained without the administration of low osmolar intravenous contrast. Comparison: CT head December 22, 2023 Findings: There is demonstration of a moderate crescentic fluid collection overlying the right cerebral convexity measuring up to 1.5 centimeters in greatest dimension with moderate effacement of the right cerebral hemisphere. There is mild [id number] midline shift measuring 1.8 millimeters. There is age-related cortical atrophy with mild sulcal widening and ex vacuo dilatation of the lateral ventricles. There are chronic small vessel disease changes in the subcortical and periventricular white matter without lost sen-white differentiation. There is moderate left periorbital, preseptal soft tissue swelling. The bony calvarium is grossly intact. There is minimal chronic mucosal thickening seen within the paranasal sinuses. The mastoid air cells are well aerated. Impression: Demonstration of a moderate right convexity subacute subdural hematoma with moderate effacement of the right lateral ventricle and trace midline shift of 1.8 millimeters right to left. Findings discussed with Dr. Hicks at 4:45 p.m. March 06, [address] all [address] scans at this facility use dose modulation, iterative reconstruction, and/or weight-based dosing when appropriate to reduce radiation dose to as low as reasonably achievable. Dictated by Karlo Chew MD @ 03/06/2024 4:51:21 PM Signed by:?Karlo Chew MD @03/06/2024 4:51:21 PM (Electronic Signature)
[2024-03-06] MEDS: 0.9 % SODIUM CHLORIDE 1000 ml 1,000 ML IV (16:37)
[2024-03-06 16:40] LABS: Lactate* 3.7 mmol/L (0.5-1.9)
[2024-03-06 16:43] LABS: Basophils Absolute Auto 0.05 K/uL (0.00-0.30); Basophils Percent Auto 0.7 % (0.0-3.0); Hematocrit 28.3 % (33.0-51.0); Hemoglobin* 9.6 gm/dL (12.0-16.0); Immature Granulocytes Abs Auto 0.01 K/uL (0.00-0.30); Immature Granulocytes Pct Auto 0.1 %; Lymphocytes Percent Auto 11.3 % (20-44); Mean Corpuscular HGB Conc 34 gm/dL (32-36); Mean Corpuscular Hemoglobin 37 pg (26-34); Mean Corpuscular Volume 108 fL (80-100); Monocytes Percent Auto 10.9 % (0.0-11.0); Platelet Count* 253 K/uL (140-440); RDW Coefficient of Variation % 12.9 % (11.5-15.5); Red Blood Count 2.61 m/uL (4.00-5.20); Slide Review Reflex No; White Blood Count* 7.15 K/uL (4.50-11.00)
--- NOTE | 2024-03-06 16:53 | ED_ITS ---
HPI - General Adult General Chief complaint: Laceration/Wound Stated complaint: fall, hit face Time Seen by Provider: 03/06/24 15:56 Source: patient Mode of arrival: ambulatory Limitations: no limitations History of Present Illness HPI narrative: 63-year-old female with a history of chronic alcohol use disorder, alcoholic liver disease, chronic hypokalemia chronic hypo magnesemia, recurrent fluid volume depletion, history of SVT , macrocytic anemia, colon cancer presents today after a fall. Patient states that sometime yesterday, unclear of what time she tripped over a 12 pack of soda on the floor and fell forward hitting her face on the corner of the stove. Her son went to visit her this morning and found blood all over her kitchen so he brought her into the ER. Patient states that her face does hurt especially around the left eye. She denies headache, she denies neck pain. She denies confusion or focal neurologic deficits. States that the last time she fell before this was in November and she has not fallen since. The patient continues to live independently despite multiple falls in the past. Related Data Home Medications Medication Instructions Recorded Confirmed aspirin 81 mg tablet,delayed 81 mg PO DAILY 10/27/23 02/02/24 release losartan 25 mg tablet 50 mg PO DAILY 10/27/23 02/03/24 sertraline 50 mg tablet 100 mg PO DAILY 10/27/23 02/03/24 albuterol sulfate 90 mcg/actuation 2 inh inhalation Q4H PRN 10/28/23 02/03/24 aerosol inhaler (Ventolin HFA) acamprosate 333 mg tablet,delayed 666 mg PO 3XD 02/03/24 02/03/24 release calcium carbonate (Oyster Shell 500 mg PO DAILY 02/03/24 02/03/24 Calcium) cyanocobalamin (vitamin B-12) 1,000 mcg PO DAILY 02/03/24 02/03/24 1,000 mcg tablet folic acid 1 mg tablet 1 mg PO DAILY 02/03/24 02/03/24 metoprolol tartrate 25 mg tablet 12.5 mg PO BID 02/03/24 02/03/24 multivitamin 1 tab PO DAILY 02/03/24 02/03/24 Previous Rx's Medication Instructions Recorded nicotine 14 mg/24 hr daily 1 patch topical Q24H #15 ea 11/07/23 transdermal patch thiamine mononitrate (vit B1) 100 100 mg PO DAILY #30 tabs 12/26/23 mg tablet (Vitamin B-1 (mononitrate)) loperamide 2 mg tablet 2 mg PO QID PRN loose stool #20 02/05/24 tabs magnesium oxide 400 mg PO TID #90 tabs 02/05/24 potassium chloride 20 mEq 40 meq (2 x 20 mEq) PO BID #180 02/05/24 tablet,extended release(part/cryst) tabs psyllium husk 3.4 gram/5.4 gram 1 tbsp PO BID #660 grams 02/05/24 oral powder (Metamucil) vancomycin 125 mg capsule 125 mg PO QID 12 days #48 caps 02/05/24 Allergies Allergy/AdvReac Type Severity Reaction Status Date / Time Penicillins Allergy Verified 12/22/23 15:43 Review of Systems Status of ROS: Reports: 10 or more systems reviewed and unremarkable except as noted in History and below [facility] Medical History Colon cancer ?C18.9 - Malignant neoplasm of colon, unspecified (ICD-10) Noncompliance by refusing intervention or support ?Z91.199 - Patient's noncompliance with other medical treatment and regimen due to unspecified reason (ICD-10) Alcohol dependence ?F10.20 - Alcohol dependence, uncomplicated (ICD-10) Alcoholic liver disease ?K70.9 - Alcoholic liver disease, unspecified (ICD-10) Alcohol dependence with acute alcoholic intoxication with complication ?F10.229 - Alcohol dependence with intoxication, unspecified (ICD-10) Multiple rib fractures ?S22.49XA - Multiple fractures of ribs, unspecified side, initial encounter for closed fracture (ICD-10) Elevated TSH ?R79.89 - Other specified abnormal findings of blood chemistry (ICD-10) Macrocytic anemia ?D53.9 - Nutritional anemia, unspecified (ICD-10) Macrocytosis ?D75.89 - Other specified diseases of blood and blood-forming organs (ICD-10) Syncope ?R55 - Syncope and collapse (ICD-10) Social History What is your current living situation?: I presently have a place to live Problems where you live: no known problems Problems where you live details: n/a In the past 12 months, utilities in danger of being shut off: no In past 12 months, lack of transportation kept you from medical appts, meetings, work, or getting things needed for daily living: no In the past 12 mos, have been you worried that your food would run out before you had money to buy more?: never true In the past 12 mos, the food you bought just didn't last and you didn't have money to buy more?: never true Highest level of school completed/degree received: Associate degree: occupational, technical, vocational program Smoking Status: Current every day smoker What tobacco products do you use: cigarettes Smoking packs per day: 0.25 Smoking cigarettes per day: 5.0 Years smoked: 20 Smoking pack-years: 5.00 Smoking quit date/years: <= 15 years ago Do you use any of these nicotine containing products: None Second hand tobacco smoke exposure: No How often do you have a drink containing alcohol: 2-4 times a month Alcohol type: hard liquor Alcohol type details: Dina and evelio How many standard drinks containing alcohol do you have on a typical day: 1 or 2 How often do you have six or more drinks on one occasion: Never AUDIT-C Alcohol total score: 2 Non-prescribed substance use: denies use Caffeine: Yes (tea) How often does anyone, including family, friends and others, physically hurt you : never How often does anyone, including family, friends and others, insult or talk down to you: never How often does anyone, including family, friends and others, threaten you with harm: never How often does anyone, including family, friends and others, scream or curse at you: never service: No Exam Narrative: Exam Narrative: Frail, under nourished patient in no acute distress. Alert and oriented x3. Answers questions appropriately. Mood and affect are appropriate. Thoughts are goal oriented and rational. No tangential or magical thinking noted. Patient speaks in full sentences without needing to catch her breath. Speech is slight slow. HEENT: Normocephalic. Pupils are equally round reactive to light. Extraocular muscles are intact. Conjunctivae are moist without any icterus noted. Moist mucous membranes. We do not see any trauma to the inside of the mouth. Patient has a hematoma around the left eye. She has a laceration above the left eyebrow that has sealed itself shut. She has tenderness to palpation around the orbit. Neck is soft. She has no tenderness to palpation of the cervical spine. She has good range of motion without discomfort. Cardiovascular: Tachycardic. Lungs: End-expiratory bibasilar crackles. Abdomen: Soft and nontender nondistended with normal bowel sounds. Extremities: Bilateral lower extremities are without edema. Skin: Well perfused. Strength is 4-5/5 of the upper and lower extremities, symmetric. Reflexes are 2+ and symmetric at the knees. Cranial nerves 3-12 are normal. [id number] is accurate but slightly slow.. There is no nystagmus either horizontally or vertically. Const: Vital Signs, click to edit/add: Vital Signs - 24 hr 03/06/24 15:54 03/06/24 16:04 03/06/24 16:26 Pulse Rate 151 H Pulse Rate [Left P ulse Oximeter] 162 H Respiratory Rate 18 Blood Pressure Blood Pressure [Ri ght Upper Arm] 146/92 H Pulse Oximetry 98 97 97 Oxygen Delivery Me thod Room Air 03/06/24 16:30 03/06/24 16:41 03/06/24 16:45 Pulse Rate 147 H 143 H 108 H Pulse Rate [Left P ulse Oximeter] Respiratory Rate Blood Pressure 142/94 H Blood Pressure [Ri ght Upper Arm] Pulse Oximetry 96 95 99 Oxygen Delivery Me thod Course Course ED Course: IV is established and EKG is done. EKG, read by me, shows supraventricular tachycardia with a pulse of 154. She fluctuates between 150 and 170. IV fluids started. Patient is sent for head and facial bone imaging: Patient does have a 1.5 cm subdural hematoma with a 1.8 mm shift. CBC shows hemoglobin of 9.6. Lactate is 3.7. Potassium is low at 2.9, magnesium is low at 0.9. Glucose is 177. Normal renal function. Alcohol less than 0.01. Patient was given oral potassium chloride we did and was started on IV magnesium replacement. I did speak to the chucking and boring machine operator at [facility] who accepted the patient for transfer. Patient remained hemodynamically and neurologically intact while she was here. Vital Signs Vital signs: Initial Vital Signs Pulse Rate 162 H 03/06/24 15:54 Pulse Rhythm Regular 03/06/24 15:54 Respiratory Rate 18 03/06/24 15:54 Blood Pressure 146/92 H 03/06/24 15:54 Blood Pressure Mean 110 H 03/06/24 15:54 Blood Pressure Position Sitting 03/06/24 15:54 Pulse Oximetry 98 03/06/24 15:54 Oxygen Delivery Method Room Air 03/06/24 15:54 Vital Signs Pulse Rate 162 H 03/06/24 15:54 Respiratory Rate 18 03/06/24 15:54 Blood Pressure 146/92 H 03/06/24 15:54 Pulse Oximetry 98 03/06/24 15:54 Oxygen Delivery Method Room Air 03/06/24 15:54 Pulse Rate 100 03/06/24 18:08 Respiratory Rate 18 03/06/24 15:54 Blood Pressure 149/93 H 03/06/24 18:07 Pulse Oximetry 97 03/06/24 18:08 Oxygen Delivery Method Room Air 03/06/24 15:54 Medications Administered Medications: Discontinued Medications Generic Name Dose Route Start Last Admin Trade Name Freq PRN Reason Stop Dose Admin Sodium Chloride 1,000 mls @ 1,000 mls/hr 03/06/24 16:15 03/06/24 17:24 0.9 % Sodium Chloride 1000 Ml IV 03/06/24 17:14 Infused .Q1H [place] Infusion Magnesium Sulfate 2 gm in 50 mls @ 25 mls/hr 03/06/24 17:06 03/06/24 17:39 Magnesium Iv IVPB 03/06/24 19:05 25 mls/hr ONCE ONE Administration Potassium Chloride 10 meq in 100 mls @ 100 mls/hr 03/06/24 17:30 03/06/24 17:40 Potassium Chloride IVPB 03/06/24 21:29 Not Given Q90M [place] Potassium Chloride 40 meq 03/06/24 17:37 03/06/24 17:47 Potassium Chloride 10 Meq Capsule Er PO 03/06/24 17:38 40 meq ONCE ONE Administration Medical Decision Making MDM Narrative Medical decision making narrative: 63-year-old female with chronic alcohol use disorder, chronic hypokalemia and hypomagnesemia likely secondary to poor nutrition and alcohol use, presenting today after a fall with a subdural hematoma. Patient transferred to [facility] for further management. Medical Records Medical records reviewed: Yes I reviewed the patient's medical records Lab Data Lab results reviewed: Yes I reviewed the patient's lab results Labs: Lab Results 03/06/24 Range/Units 16:35 WBC 7.15 (4.50-11.00) K/uL RBC 2.61 L (4.00-5.20) m/uL Hgb 9.6 L (12.0-16.0) gm/dL Hct 28.3 L (33.0-51.0) % MCV 108 H (80-100) fL MCH 37 H (26-34) pg MCHC 34 (32-36) gm/dL RDW Coeff of Katina 12.9 (11.5-15.5) % Plt Count 253 (140-440) K/uL Neut % (Auto) 77.0 H (42.0-72.0) % Lymph % (Auto) 11.3 L (20-44) % [place] % (Auto) 10.9 (0.0-11.0) % Eos % (Auto) 0.0 (0.0-7.0) % Baso % (Auto) 0.7 (0.0-3.0) % Neut # (Auto) 5.50 (1.7-7.0) K/uL Lymph # (Auto) 0.80 L (0.90-2.90) K/uL [place] # (Auto) 0.80 (0.00-0.90) K/UL Eos # (Auto) 0.00 (0.00-0.50) K/uL Baso # (Auto) 0.05 (0.00-0.30) K/uL Abs Immat Gran (auto) 0.01 (0.00-0.30) K/uL Imm/Tot Granulo (auto) 0.1 % Sodium 137 (135-149) mmol/L Potassium 2.9 L* (3.6-5.1) mmol/L Chloride 101 (96-114) mmol/L Carbon Dioxide 29 (20-32) mmol/L Anion Gap 7 (7-15) mEq/L BUN 22 (7-30) mg/dL Creatinine 0.6 (0.5-1.5) mg/dL Estimated Creat Clear 49.48 Estimated GFR 101 ml/min Glucose 177 H (60-115) mg/dL Lactate 3.7 H (0.5-1.9) mmol/L Calcium 8.9 (8.4-10.6) mg/dL Magnesium 0.9 L* (1.5-2.6) mg/dL Total Bilirubin 0.7 (0.1-1.5) mg/dL Direct Bilirubin 0.2 (0.0-0.5) mg/dL AST 98 H (12-35) U/L ALT 54 H (4-35) U/L Alkaline Phosphatase 108 (40-150) U/L Total Protein 7.7 (6.0-8.3) g/dL Albumin 4.4 (3.3-5.0) g/dL Ethyl Alcohol < 0.01 L (0.01-0.03) % Imaging Data CT scan - head: Attestation: I have reviewed the pertinent imaging results. Radiologist's impression: Study:?CT Head w/o-03/06/2024 4:24:24 PM Ordering Physician:Jean Hicks Final Report: Indication: Fall, hit left eye Technique: Volumetric multidetector CT images of the head were obtained without the administration of low osmolar intravenous contrast. Comparison: CT head December 22, 2023 Findings: There is demonstration of a moderate crescentic fluid collection overlying the right cerebral convexity measuring up to 1.5 centimeters in greatest dimension with moderate effacement of the right cerebral hemisphere. There is mild [id number] midline shift measuring 1.8 millimeters. There is age-related cortical atrophy with mild sulcal widening and ex vacuo dilatation of the lateral ventricles. There are chronic small vessel disease changes in the subcortical and periventricular white matter without lost sen-white differentiation. There is moderate left periorbital, preseptal soft tissue swelling. The bony calvarium is grossly intact. There is minimal chronic mucosal thickening seen within the paranasal sinuses. The mastoid air cells are well aerated. Impression: Demonstration of a moderate right convexity subacute subdural hematoma with moderate effacement of the right lateral ventricle and trace midline shift of 1.8 millimeters right to left. ECG Data Attestation: I personally reviewed and interpreted this ECG as follows: Discharge Plan Discharge Clinical Impression: Subdural hematoma, Hypomagnesemia, Alcohol use disorder, Hypokalemia, Fall Patient Disposition: [facility] Condition: Guarded Prescriptions: No Action thiamine mononitrate (vit B1) [Vitamin B-1 (mononitrate)] 100 mg Tablet 100 mg PO DAILY Qty: 30 0RF folic acid 1 mg tablet 1 mg PO DAILY cyanocobalamin (vitamin B-12) 1,000 mcg tablet 1,000 mcg PO DAILY acamprosate 333 mg tablet,delayed release (DR/EC) 666 mg PO 3XD multivitamin Tablet 1 tab PO DAILY metoprolol tartrate 25 mg Tablet 12.5 mg PO BID calcium carbonate [Oyster Shell Calcium] 500 mg calcium (1,250 mg) tablet 500 mg PO DAILY Metamucil 3.4 gram/5.4 gram powder 1 tbsp PO BID Qty: 660 0RF Rx Instructions: mix into at least 8 oz of water or juice before administering magnesium oxide 400 mg magnesium tablet 400 mg PO TID Qty: 90 0RF vancomycin 125 mg Capsule 125 mg PO QID 12 Days Qty: 48 0RF potassium chloride 20 mEq tablet,ER particles/crystals 40 meq PO BID Qty: 180 3RF loperamide 2 mg tablet 2 mg PO QID PRN (Reason: loose stool) Qty: 20 0RF aspirin 81 mg tablet,delayed release (DR/EC) 81 mg PO DAILY sertraline 50 mg tablet 100 mg PO DAILY losartan 25 mg tablet 50 mg PO DAILY albuterol sulfate [Ventolin HFA] 90 mcg/actuation HFA aerosol inhaler 2 inh inhalation Q4H PRN nicotine 14 mg/24 hr Patch 24 Hour 1 patch topical Q24H Qty: 15 0RF Follow Up/Referrals: LIDIA CAMPOS DO [Primary Care Provider] -
[2024-03-06 16:57] LABS: Albumin* 4.4 g/dL (3.3-5.0)
[2024-03-06 16:58] LABS: Chloride* 101 mmol/L (96-114); Sodium* 137 mmol/L (135-149)
--- OUTSIDE RECORDS SUMMARY | 2024-03-06 16:59 | XMS_ITS | Clinical Summary ---
Author Name Unknown Organization [facility] [employer] Affiliates Address [place], [place] [address] Care Team Providers Care Pipeline Engineer Name Role Phone [facility] Un[facility] Alexi Keating RN Unavailable [phone] Kim Gallo MD Unavailable Pcp, No Primary Care Provider Unavailabl e Allergies Active Allergy Reactions Criticality Noted Date Comments Penicillins *Unknown 08/04/2022 Tolerated pip/tazo 07/2022 Medications Medication Sig Dispensed Refills Start Date End Date Status folic acid 1 mg tabletIndications:Alc oholic ketoacidosis Take 1 Tablet (1 mg) by mouth once daily. 30 Tablet 08/28/2022 Active albuterol HFA (PRO-AIR; VENTOLIN; PROVENTIL) [...] type, unspecified whether angina present, unspecified whether [place] or transplanted heart Place 1-2 Tablets (0.4-0.8 mg) under the tongue every 5 minutes if needed for Chest Pain. 12 Tablet 3 01/31/2023 Active aspirin (ECOTRIN) 81 mg enteric coated tabletIndications:NST MARY (non-ST elevated myocardial infarction) (HC) Take 1 Tablet (81 mg) by mouth once daily with a meal. 30 Tablet 07/16/2023 Active magnesium oxide (MAG-OX 400) 400 mg tabletIndications:Hyp omagnesemia Take 1 Tablet (400 mg) by mouth two times daily. 60 Tablet 07/16/2023 Active psyllium husk, with sugar, (METAMUCIL) 3.4 gram packetIndications:Zayra rrhea, unspecified type Mix 1 Packet in liquid then take by mouth two times daily. 30 Packet 07/16/2023 Active nicotine 14 mg/24 hr (NICODERM; HABITROL) 14 mg/24 hr patchIndications:Ciga rette nicotine dependence with nicotine-induced disorder Apply 1 Patch on dry, clean, hairless skin once daily. 30 Patch 3 09/06/2023 Active metoprolol tartrate (LOPRESSOR) 25 mg tabletIndications:Cor onary artery disease, unspecified vessel or lesion type, unspecified whether angina present, unspecified whether [place] or transplanted heart TAKE 1/2 TABLET(12.5 MG) BY MOUTH TWICE DAILY 30 Tablet 10/13/2023 Active ondansetron (ZOFRAN ODT) [address] 4 mg on the tongue every 8 hours if needed. 12/06/2023 Active metroNIDAZOLE (FLAGYL) 500 mg tablet Take 500 mg by mouth. 12/06/2023 Active vancomycin (VANCOCIN) 125 mg capsule TAKE 1 CAPSULE BY MOUTH FOUR TIMES DAILY FOR 10 DAYS 12/26/2023 Active Vitamin B-1 100 mg tablet Take 100 mg by mouth once daily. 12/26/2023 Active droNABinol (MARINOL) 2.5 mg capsuleIndications:Mo derate malnutrition (HC) Take 1 Capsule (2.5 mg) by mouth once daily before a meal. 30 Capsule 2 12/31/2023 03/30/2024 Active losartan (COZAAR) 25 mg tabletIndications:Str ess-induced cardiomyopathy,HTN (hypertension) Take 2 Tablets (50 mg) by mouth once daily. 180 Tablet 3 01/04/2024 Active sertraline (ZOLOFT) 50 mg tabletIndications:MURALI (generalized anxiety disorder) Take 1 Tablet (50 mg) by mouth every morning for 7 days, THEN 2 Tablets (100 mg) every morning. 367 Tablet 01/04/2024 07/09/2024 Active acamprosate (CAMPRAL) 333 mg tabletIndications:Alc oholism, chronic (HC) Take 2 Tablets (666 mg) by mouth three times daily. 180 Tablet 2 01/04/2024 Active loperamide (IMODIUM) 2 mg capsule TAKE 1 CAPSULE BY MOUTH FOUR TIMES DAILY NEEDED FOR LOOSE STOOL 02/05/2024 Active Active Problems Problem Noted Date Diagnosed [...] Encounters Date Type Department Care Team Description 01/04/2024 Nurse Triage [facility] Nurse Triage Pcp, No Refill Request 01/04/2024 Telephone [facility] [address] [place] [address] Stefan Cruz DO Refill Request (losartan, sertraline, acamprosate) 01/02/2024 Telephone [facility] [address] [place] [address] Stefan Cruz DO Refill Request (acamprosate (CAMPRAL) 333 mg tablet 180 /sertraline (ZOLOFT) 50 mg tablet 367 Tablet/losartan (COZAAR) 25 mg tablet 180 Tablet) 12/31/2023 11:25 AM UPPER TRIMMER Office Visit [facility] [address] [place] [address] Stefan Cruz DO Hospital F/U; Preoperative Exam 12/31/2023 Travel 12/19/2023 Telephone [facility] [address] [place] [phone] Kim Gallo MD Late Cancel Appointment 12/18/2023 Telephone [facility] [address] [place] [phone] Kim Gallo MD Appointment (Cancel appointment ) 12/11/2023 Telephone [facility] [address] [place] [phone] Kim Gallo MD Appointment from Last 3 Months Immunizations Name Administration [...] Comments Blood Pressure 198/124 12/31/2023 11:34 AM UPPER TRIMMER re check Pulse 80 12/31/2023 11:30 AM UPPER TRIMMER Temperature 36.7 ??C (98.1 ??F) 08/21/2023 3:26 PM CD T Respiratory Rate 18 09/06/2023 11:34 AM CDT Oxygen Saturation 100% 12/31/2023 11:30 AM UPPER TRIMMER Inhaled Oxygen Concentration - - Weight 52.4 kg (115 lb 8 oz) 09/06/2023 11:34 AM CDT Height 172.7 cm (5' 8) 09/06/2023 11:34 AM CDT Body Mass Index 17.56 09/06/2023 11:34 AM CDT Plan of Treatment Health Maintenance Due Date Last Done Comments [...] for age 45-75 2005 COVID-19 vaccine series (2022- season) 2023 11/09/2021, 03/10/2021, 02/09/2021 Influenza for age 50-64 07/26/2024 BMI (ht and wt on same day) for age 18+ 09/06/2024 09/06/2023, 07/26/2023, 08/30/2022 Colonoscopy through age 75 07/08/2033 07/08/2023 Procedures Procedure Name Priority Date/Time Associated Diagnosis Comments CBC WITH AUTO DIFFERENTIAL Routine 12/31/2023 12:12 PM UPPER TRIMMER Severe anemia CBC WITH AUTO DIFFERENTIAL Routine 12/31/2023 12:12 PM UPPER TRIMMER Severe anemia COMP METABOLIC PANEL Routine 12/31/2023 12:12 PM UPPER TRIMMER Primary adenocarcinoma of ascending colon (HC) Alcoholic liver disease (HC) COLONOSCOPY 07/08/2023 12:07 PM CDT from Last 3 Months or Most Recently Relevant to Health Maintenance Results * (ABNORMAL) CBC WITH AUTO DIFFERENTIAL (12/31/2023 12:12 PM UPPER TRIMMER) WHITE BLOOD COUNT 5.0 4.5 - 11.0 thou/cu mm 12/31/2023 12:34 PM [facility] RED BLOOD COUNT 3.51(L) 4.00 - 5.20 mil/cu mm 12/31/2023 12:34 PM [facility] HEMOGLOBIN 12.8 12.0 - 16.0 g/dL 12/31/2023 12:34 PM [facility] HEMATOCRIT 38.8 33.0 - 51.0 % 12/31/2023 12:34 PM [facility] MCV 111(H) 80 - 100 fL 12/31/2023 12:34 PM [facility] MCH 36.5(H) 26.0 - 34.0 pg 12/31/2023 12:34 PM [facility] MCHC 33.0 32.0 - 36.0 g/dL 12/31/2023 12:34 PM [facility] RDW 12.7 11.5 - 15.5 % 12/31/2023 12:34 PM [facility] PLATELET COUNT 378 140 - 440 thou/cu mm 12/31/2023 12:34 PM [facility] MPV 10.2 6.5 - 11.0 fL 12/31/2023 12:34 PM [facility] % NEUT 55.6 % 12/31/2023 12:34 PM [facility] % LYMPH 24.3 % 12/31/2023 12:34 PM [facility] % MONO 18.9 % 12/31/2023 12:34 PM [facility] % EOS 0.4 % 12/31/2023 12:34 PM [facility] % BASO 0.8 % 12/31/2023 12:34 PM [facility] ABSOLUTE NEUTROPHILS 2.8 1.7 - 7.0 thou/cu mm 12/31/2023 12:34 PM [facility] ABSOLUTE LYMPHOCYTES 1.2 0.9 - 2.9 thou/cu mm 12/31/2023 12:34 PM [facility] ABSOLUTE MONOCYTES 0.9(H) <0.9 thou/cu mm 12/31/2023 12:34 PM [facility] ABSOLUTE EOSINOPHILS 0.0 <0.5 thou/cu mm 12/31/2023 12:34 PM [facility] ABSOLUTE BASOPHILS 0.0 <0.3 thou/cu mm 12/31/2023 12:34 PM [facility] Blood BLOOD SPECIMEN / Unknown Butterfly / Unknown 12/31/2023 12:12 PM UPPER TRIMMER 12/31/2023 12:14 PM UPPER TRIMMER Stefan Cruz DO HEMATOLOGY [facility] [address] [place] [address], * (ABNORMAL) COMP METABOLIC PANEL (12/31/2023 12:12 PM UPPER TRIMMER) SODIUM 140 136 - 145 mmol/L 12/31/2023 10:57 PM [facility] POTASSIUM 5.8(H) 3.5 - 5.1 mmol/L 12/31/2023 10:57 PM [facility] CHLORIDE 103 98 - 107 mmol/L 12/31/2023 10:57 PM [facility] CO2,TOTAL 22 22 - 29 mmol/L 12/31/2023 10:57 PM [facility] ANION GAP 15 5 - 18 12/31/2023 10:57 PM [facility] GLUCOSE 127(H) 70 - 99 mg/dL 12/31/2023 10:57 PM [facility] CALCIUM 10.3(H) 8.8 - 10.2 mg/dL 12/31/2023 10:57 PM [facility] BUN 14 8 - 23 mg/dL 12/31/2023 10:57 PM [facility] CREATININE 0.72 0.50 - 0.90 mg/dL 12/31/2023 10:57 PM [facility] BUN/CREAT RATIO 19 10 - 20 10:57 PM [facility] TRA [facility]ORATORY eGFR >90 >90 mL/min/1.7 3m2 12/31/2023 10:57 PM [facility] Comment:As of 2022, eG FR is calculated by the CKD-EPI creatinine equation without race adjustment. ??eGFR can be influenced by muscle mass, exercise, and diet. ??The reported eGFR is an estimation only and is only applicable if the renal function is stable. ALBUMIN 4.6 4.0 - 4.9 g/dL 12/31/2023 10:57 PM [facility] PROTEIN,TOTAL 7.8 6.0 - 8.0 g/dL 12/31/2023 10:57 PM [facility] BILIRUBIN,TOTAL 0.5 0.0 - 1.2 mg/dL 12/31/2023 10:57 PM [facility] ALK PHOSPHATASE 117(H) 35 - 104 IU/L 12/31/2023 10:57 PM [facility] ALT (SGPT) 121(H) 10 - 35 IU/L 12/31/2023 10:57 PM [facility] AST (SGOT) 138(H) 10 - 35 IU/L 12/31/2023 10:57 PM [facility] Blood BLOOD SPECIMEN / Unknown Butterfly / Unknown 12/31/2023 12:12 PM UPPER TRIMMER 12/31/2023 12:14 PM UPPER TRIMMER Ghadai Nancy [facility] [address] [place] [address], * COLONOSCOPY (07/08/2023 12:07 PM CDT) 07/08/2023 12:0 7 PM CDT Narrative Transcriptions Aime Wilkes MD - 07/08/2023 1:58 PM CDT [facility] Patient Name: Simona Velázquez Procedure Date: 07/08/2023 Gender: Female Date of : 1960 Admit Type: Inpatient Procedure: Colonoscopy Proceduralist: Aime Wilkes MD - [facility] Indications/Pre-Op Diagnosis: Clinically significant diarrhea ofunexplained origin, Iron deficiency anemia Medications: Monitored Anesthesia Care Procedure Description: The patient had risks, benefits and alternatives explained to andgave informed consent. The patient had a stable cardiopulmonary status and judged an adequate candidate for sedation. The endoscope [id number] was passed through the anus and advanced to the terminal ileum, with identification of theappendiceal orifice and IC valve. The colonoscopy was performed withoutdifficulty. The patient tolerated the procedure well. The quality of the bowel preparation was evaluated using the BBPS (Harper Bowel Preparation Scale) with scores of: Right Colon = 3, Transverse Colon = 3 and Left Colon = 3 (entire mucosa seen well with no residual staining, small fragments of stool or opaque liquid). The total BBPS score equals9. Complications: No immediate complications. Estimated Blood Loss & Specimen: Estimated blood loss: none. Specimen collected: Yes and sent to Laboratory Findings: The terminal ileum appeared normal. Two sessile polyps were found in the cecum. The polyps were 5 to 8 mmin size. These polyps were removed with a cold snare. Resection and retrieval were complete. Four sessile polyps were found in the ascending colon, two smallpolyps (4-5 mm) and two large polyps (10 mm and 40 mm). The largest polypwas removed with hot snare, while the other three polyps were removedwith cold snare. Resection and retrieval were complete. An endoscopictattoo with injection of Kelli ink was placed about 10 cm distal to thelarger two polyps. A 30 mm pedunculated polyp was found in the proximal descendingcolon. The polyp was removed with a hot snare. Resection and retrieval were complete. Many medium-mouthed diverticula were found in the sigmoid colon. External and internal hemorrhoids were found during retroflexion. The hemorrhoids were Grade II (internal hemorrhoids that prolapse butreduce spontaneously). The exam was otherwise without abnormality on direct and retroflexion views. Random colon biopsies were obtained. Impressions/Post-Op Diagnosis: - The examined portion of the ileum was normal. - Two 5 to 8 mm polyps in the cecum, removed with a cold snare.Resected and retrieved. - Four 4 to 40 mm polyps in the ascending colon, removed with a coldand hot snare. Resected and retrieved. Tattooed. - One 30 mm polyp in the proximal descending colon, removed with ahot snare. Resected and retrieved. - Diverticulosis in the sigmoid colon. - External and internal hemorrhoids. - The examination was otherwise normal on direct and retroflexionviews. Random colon biopsies obtained to assess for microscopic colitis. Recommendation: - [facility]. - Resume regular diet today. - Await pathology results. Aime Wilkes MD 07/08/2023 1:58:16 PM This report has been signed electronically. Note Initiated On: 07/08/2023 12:07 PM Aime Wilkes MD PROCEDURE ORD from Last 3 Months or Most Recently Relevant to Health Maintenance Advance Directives * Full Code (Latest Code Status on File) Date Activated Date Inactivated Comments 06/30/2023 11:58 AM 07/17/2023 6:01 PM Question Answer Comments Code Status Discussion: Reviewed Preferences * Full Code Date Activated Date Inactivated Comments 06/30/2023 3:20 AM 06/30/2023 11:58 AM Question Answer Comments Code Status Discussion: Unable to Assess Preferences, Provider to review later * Full Code Date Activated Date Inactivated Comments 12/20/2022 10:27 PM 12/29/2022 1:38 PM Question Answer Comments Code Status Discussion: Reviewed Preferences * Full Code Date Activated Date Inactivated Comments 08/06/2022 7:17 AM 08/27/2022 7:44 PM Question Answer Comments Code Status Discussion: Reviewed Preferences * Full Code Date Activated Date Inactivated Comments 08/03/2022 11:52 PM 08/06/2022 7:17 AM Question Answer Comments Code Status Discussion: Unable to Assess Preferences, Provider to review later Care Teams Pipeline Engineer Relationship Specialty Start Date End Date Pcp, No . PCP - General 12/31/23 [facility] [address] [place] [address] 07/16/23 Alexi Keating, RN [address] [address] Nurse Navigator - Oncology Registered Nurse 10/08/23 Kim Gallo MD [address] [address] Surgery - Colon and Rectal 10/08/23
[2024-03-06 17:00] LABS: Anion Gap 7 mEq/L (7-15); Bilirubin Direct* 0.2 mg/dL (0.0-0.5); Bilirubin Total* 0.7 mg/dL (0.1-1.5); Carbon Dioxide* 29 mmol/L (20-32); Creatinine* 0.6 mg/dL (0.5-1.5); Est. Creatinine Clearance* 49.48; Estimated Glomerular Filt Rate 101 ml/min; Total Protein* 7.7 g/dL (6.0-8.3)
[2024-03-06 17:01] LABS: Alanine Aminotransferase* 54 U/L (4-35); Alkaline Phosphatase* 108 U/L (40-150); Aspartate Amino Transferase* 98 U/L (12-35); Blood Urea Nitrogen* 22 mg/dL (7-30); Calcium* 8.9 mg/dL (8.4-10.6); Glucose* 177 mg/dL (60-115)
[2024-03-06 17:04] LABS: Ethanol* < 0.01 % (0.01-0.03); Magnesium* 0.9 mg/dL (1.5-2.6); Potassium* 2.9 mmol/L (3.6-5.1)
[2024-03-06] MEDS: MAGNESIUM IV 2 GM/50 ML PIGGYBACK IVPB (17:39)
[2024-03-06] MEDS: POTASSIUM CHLORIDE 10 MEQ CAPSULE ER 40 MEQ PO (17:47)
== END 2024-03-06 18:37 | disposition short-term general hospital (02) ==
LOC: ED 16:58
PROVIDERS: Emergency Provider Family Medicine; PCP Student in an Organized Health Care Education/Training Program
DX: S06.5X0A Traumatic subdural hemorrhage without loss of consciousness, initial encounter (principal); E83.42 Hypomagnesemia; E87.6 Hypokalemia; F10.10 Alcohol abuse, uncomplicated; W01.0XXA Fall on same level from slipping, tripping and stumbling without subsequent striking against object, initial encounter
CPT/HCPCS: 36415; 70450; 70486; 80048; 80076; 82077; 83605; 83735; 85025; 93005; 94761; 96374; 96375; 99285; A9270; J3475; J7030

== ENCOUNTER 2024-03-06 18:25 | Outpatient (CLI) | payer MEDICAID, SELFPAY ==
--- OUTSIDE RECORDS SUMMARY | 2024-03-09 18:03 | XMS_ITS | Clinical Summary ---
Author Name Unknown Organization [facility] [employer] Address [place], [place] [address] Care Team Providers Care Forming Machine Tender Name Role Phone [facility] Unavailable Alexi Keating RN Unavailable [phone] Kim Gallo MD Unavailable Pcp, No Primary Care Provider Unavailabl e Allergies Active Allergy Reactions Criticality Noted Date Comments Penicillins *Unknown 08/04/2022 Tolerated pip/tazo 07/2022 Medications Medication Sig Dispensed Refills Start Date End Date Status folic acid 1 mg tabletIndications: Alcoholic ketoacidosis Take 1 Tablet (1 mg) by mouth once daily. 30 Tablet 2 03/06/20 24 Discontinued(P harmacist change per medication history (E-cancel not sent)) albuterol HFA (PRO-AIR; VENTOLIN; PROVENTIL) 90 mcg/actuation inhalerIndications :Centrilobular emphysema (HC) Inhale 1-2 Puffs by mouth every 4 hours if needed for Wheezing 1st choice. 0 3 Suspended Additional Information multivitamin chewIndications:To bacco use Chew 1 Tablet by mouth once daily. 90 Tablet 3 3 Suspended Additional Information potassium chloride (KLOR-CON M20) 20 mEq Extended-Release tabletIndications: Hypokalemia Take 2 Tablets (40 mEq) by mouth two times daily with meals. 360 Tablet 1 3 Suspended Additional Information nitroglycerin (NITROSTAT) 0.4 mg sublingual tabletIndications: Coronary artery disease, unspecified vessel or lesion type, unspecified whether angina present, unspecified whether [place] or transplanted heart Place 1-2 Tablets (0.4-0.8 mg) under the tongue every 5 minutes if needed for Chest Pain. 12 Tablet 3 3 03/07/20 24 Discontinued(P harmacist change per medication history (E-cancel not sent)) aspirin (ECOTRIN) 81 mg enteric coated tabletIndications: NSTEMI (non-ST elevated myocardial infarction) (HC) Take 1 Tablet (81 mg) by mouth once daily with a meal. 30 Tablet 3 Suspended Additional Information magnesium oxide (MAG-OX 400) 400 mg tabletIndications: Hypomagnesemia Take 1 Tablet (400 mg) by mouth two times daily. 60 Tablet 3 Suspended Additional Information psyllium husk, with sugar, (METAMUCIL) 3.4 gram packetIndications: Diarrhea, unspecified type Mix 1 Packet in liquid then take by mouth two times daily. 30 Packet 3 Suspended Additional Information nicotine 14 mg/24 hr (NICODERM; HABITROL) 14 mg/24 hr patchIndications:C igarette nicotine dependence with nicotine-induced disorder Apply 1 Patch on dry, clean, hairless skin once daily. 30 Patch 3 3 Suspended Additional Information metoprolol tartrate (LOPRESSOR) 25 mg tabletIndications: Coronary artery disease, unspecified vessel or lesion type, unspecified whether angina present, unspecified whether [place] or transplanted heart TAKE 1/2 TABLET(12.5 MG) BY MOUTH TWICE DAILY 30 Tablet 3 Suspended Additional Information ondansetron (ZOFRAN ODT) [address] 4 mg on the tongue every 8 hours if needed. 4 03/07/20 24 Discontinued(P harmacist change per medication history (E-cancel not sent)) metroNIDAZOLE (FLAGYL) 500 mg tablet Take 500 mg by mouth. 4 03/06/20 24 Discontinued(P harmacist change per medication history (E-cancel not sent)) vancomycin (VANCOCIN) 125 mg capsule TAKE 1 CAPSULE BY MOUTH FOUR TIMES DAILY FOR 10 DAYS 4 Suspended Vitamin B-1 100 mg tablet Take 100 mg by mouth once daily. 4 Suspended droNABinol (MARINOL) 2.5 mg capsuleIndications :Moderate malnutrition (HC) Take 1 Capsule (2.5 mg) by mouth once daily before a meal. 30 Capsule 2 4 03/30/20 24 Suspended Additional Information losartan (COZAAR) 25 mg tabletIndications: Stress-induced cardiomyopathy,HTN (hypertension) Take 2 Tablets (50 mg) by mouth once daily. 180 Tablet 3 4 03/07/20 24 Discontinued(P harmacist change per medication history (E-cancel not sent)) sertraline (ZOLOFT) 50 mg tabletIndications: MURALI (generalized anxiety disorder) Take 1 Tablet (50 mg) by mouth every morning for 7 days, THEN 2 Tablets (100 mg) every morning. 367 Tablet 4 03/07/20 24 Discontinued(P harmacist change per medication history (E-cancel not sent)) acamprosate (CAMPRAL) 333 mg tabletIndications: Alcoholism, chronic (HC) Take 2 Tablets (666 mg) by mouth three times daily. 180 Tablet 2 4 Suspended Additional Information loperamide (IMODIUM) 2 mg capsule TAKE 1 CAPSULE BY MOUTH FOUR TIMES DAILY NEEDED FOR LOOSE STOOL 4 Suspended losartan (COZAAR) 25 mg tablet Take 25 mg by mouth two times daily. Suspended sertraline (ZOLOFT) 50 mg tablet Take 100 mg by mouth once daily. Suspended Active Problems Problem Noted Date Diagnosed Date Chronic subdural hematoma 03/09/2024 Acute subdural hematoma 03/06/2024 Elevated TSH 12/31/2023 Generalized weakness 12/31/2023 Macrocytosis [...] Encounters Date Type Department Care Team Description 03/06/2024 7:27 PM CDT - Present Hospital Encounter [facility] [address] [place] [address] Kait Smith DO Buschette, Jared Thomas, MD [facility], [facility] Nondisplaced fracture of greater trochanter of right femur, initial encounter for closed fracture (HC) (Primary Dx) 01/04/2024 Nurse Triage [facility] Centralized Nurse Triage Pcp, No Refill Request 01/04/2024 Telephone [facility] [address] [place] [address] Stefan Cruz DO Refill Request (losartan, sertraline, acamprosate) 01/02/2024 Telephone [facility] [address] [place] [address] Stefan Cruz, Refill Request (acamprosate (CAMPRAL) 333 mg tablet 180 /sertraline (ZOLOFT) 50 mg tablet 367 Tablet/losartan (COZAAR) 25 mg tablet 180 Tablet) 12/31/2023 11:25 AM PRIMARY CARE PEDIATRICIAN Office Visit [facility] [address] [place] [address] Stefan Cruz [facility] F/U; Preoperative Exam 12/31/2023 Travel 12/19/[address] [facility] [address] [place] [phone] Kim Gallo MD Late Cancel Appointment 12/18/[address] [facility] [address] [place] [phone] Kim Gallo MD Appointment (Cancel appointment ) 12/11/[address] [facility] [address] [place] [phone] Kim Gallo MD Appointment from Last 3 [...] Sign Reading Time Taken Comments Blood Pressure 124/73 03/09/2024 4:14 PM CDT Pulse 70 03/09/2024 4:14 PM CDT Temperature 36.8 ??C (98.2 ??F) 03/09/2024 4:14 PM CD T Respiratory Rate 18 03/09/2024 4:14 PM CDT Oxygen Saturation 98% 03/09/2024 4:14 PM CDT Inhaled Oxygen Concentration - - Weight 53 kg (116 lb 13.5 oz) 03/06/2024 7:30 PM CDT Height 172.7 cm (5' 8) 03/06/2024 7:30 PM CDT Body Mass Index 17.77 03/06/2024 7:30 PM CDT Plan of Treatment Health Maintenance Due [...] Colonoscopy through age 75 07/08/2033 07/08/2023 Procedures The patient is currently admitted. The information in this section might not be complete until the patient is discharged. Procedure Name Priority Date/Time Associated Diagnosis Comments GLUCOSE METER Timed 03/09/2024 4:38 PM CDT GLUCOSE METER Timed 03/09/2024 12:20 PM CDT XR HIP 2 OR 3 VIEWS W PELVIS RIGHT STAT 03/09/2024 8:[address] HEAD BRAIN WO Routine 03/09/2024 8:30 AM CDT MAGNESIUM Early AM 03/09/2024 8:12 AM CDT GLUCOSE METER Timed 03/09/2024 6:46 AM CDT SCAN-CARDIAC STRIP 03/09/2024 2: 45 AM CDT GLUCOSE METER Timed 03/09/2024 1:18 AM CDT GLUCOSE METER Timed 03/08/2024 9:36 PM CDT SCAN-CARDIAC STRIP 03/08/2024 8: 30 PM CDT GLUCOSE METER Timed 03/08/2024 4:57 PM CDT POTASSIUM Early AM 03/08/2024 4:56 PM CDT GLUCOSE METER Timed 03/08/2024 11:55 AM CDT MAGNESIUM Early AM 03/08/2024 10:35 AM CDT PHOSPHORUS Early AM 03/08/2024 10:35 AM CDT SCAN-CARDIAC STRIP 03/08/2024 6: 53 AM CDT GLUCOSE METER Timed 03/08/2024 6:49 AM CDT GLUCOSE METER Timed 03/07/2024 9:28 PM CDT MAGNESIUM Timed 03/07/2024 4:[address] CHEST ABDOMEN PELVIS W Routine 03/07/2024 3:41 PM CDT SCAN-CARDIAC STRIP 03/07/2024 2: 39 PM CDT SCAN-CARDIAC STRIP 03/07/2024 8: 34 AM CDT GLUCOSE METER Timed 03/07/2024 8:34 AM CDT POTASSIUM Timed 03/07/2024 4:33 AM CDT PHOSPHORUS Early AM 03/07/2024 4:33 AM CDT GLUCOSE METER Timed 03/07/2024 2:02 AM CDT SCAN-CARDIAC STRIP 03/07/2024 12 :[address] HEAD BRAIN WO Routine 03/06/2024 10:5 0 PM CDT SCAN-CARDIAC STRIP 03/06/2024 8: 56 PM CDT CBC WITH AUTO DIFFERENTIAL STAT 03/06/2024 8:47 PM CDT PROTIME-INR STAT 03/06/2024 8:47 PM CDT CBC WITH AUTO DIFFERENTIAL STAT 03/06/2024 8:47 PM CDT PHOSPHORUS STAT 03/06/2024 8:47 PM CDT MAGNESIUM STAT 03/06/2024 8:47 PM CDT BASIC METABOLIC PANEL STAT 03/06/2024 8:47 PM CDT GLUCOSE METER Timed 03/06/2024 7:41 PM CDT CBC WITH AUTO DIFFERENTIAL Routine 12/31/2023 12:12 PM PRIMARY CARE PEDIATRICIAN Severe anemia CBC WITH AUTO DIFFERENTIAL Routine 12/31/2023 12:12 PM PRIMARY CARE PEDIATRICIAN Severe anemia COMP METABOLIC PANEL Routine 12/31/2023 12:12 PM PRIMARY CARE PEDIATRICIAN Primary adenocarcinoma of ascending colon (HC) Alcoholic liver disease (HC) COLONOSCOPY 07/08/2023 12:07 PM CDT from Last 3 Months or Most Recently Relevant to Health Maintenance Results * (ABNORMAL) GLUCOSE METER (03/09/2024 4:38 PM CDT) Only the most recent of12 resultswithin the time period is included. GLUCOSE METER 112(H) 65 - 100 mg/dL 03/09/2024 4:40 PM CDT [facility] Blood BLOOD SPECIMEN / Unknown 03/09/2024 4:38 PM CDT 03/09/2024 4:40 PM CDT Derek Hassan MD CHEMISTRY [facility] [address] [place] [id number], [place] * XR HIP 2 OR 3 VIEWS W PELVIS RIGHT (03/09/2024 8:37 AM CDT) Anatomical Region Laterality Modality HIPS, HIPR, Pelvis Digital Radio graphy 03/09/2024 10:5 8 AM CDT Narrative 03/09/2024 10:58 AM CDT For Patients: ??As a result of the Cures Act, medical imaging exams and procedure reports are released immediately into your electronic medical record. ??You may view this report before your referring provider. ??If you have questions, please contact your health care provider. Indication: Fracture Technique: An AP view of the pelvis was acquired as well as AP and lateral views of the right hip. Comparison: Portions of a CT dated March 07, 2024 Findings: Degenerative changes of the visualized lower lumbar spine. Innominate bones, sacrum and left hip as visualized appears normal. There is an avulsion fracture of the greater trochanter on the right. The fracture fragment is proximally displaced and is similar to the CT Impression: Right greater trochanteric avulsion fracture, proximally displaced by about 2 centimeters. This is similar to the CT of March 07, 2024 Dictated by Primo Peralta MD @ Mar 09 2024 10:58AM (Electronically Signed) [email or web address] Procedure Note Primo Peralta MD - 03/09/2024 For Patients: As a result of the Cures Act, medical imagingexams and procedure reports are released immediately into your electronicmedical record. You may view this report before your referring provider.If you have questions, please contact your health care provider. Indication: Fracture Technique: An AP view of the pelvis was acquired as well as AP and lateral views ofthe right hip. Comparison: Portions of a CT dated March 07, 2024 Findings: Degenerative changes of the visualized lower lumbar spine. Innominatebones, sacrum and left hip as visualized appears normal. There is anavulsion fracture of the greater trochanter on the right. The fracturefragment is proximally displaced and is similar to the CT Impression: Right greater trochanteric avulsion fracture, proximally displaced byabout 2 centimeters. This is similar to the CT of March 07, 2024 Dictated by Primo Peralta MD @ Mar 09 2024 10:58AM (Electronically Signed) [email or web address] * CT HEAD BRAIN WO (03/09/2024 8:30 AM CDT) Only the most recent of2 resultswithin the time period is included. Anatomical Region Laterality Modality HEAD, BRAIN Computed Tomogra phy 03/09/2024 9:20 AM CDT Narrative 03/09/2024 9:20 AM CDT For Patients: ??As a result of the Century Cures Act, medical imaging exams and procedure reports are released immediately into your electronic medical record. ??You may view this report before your referring provider. ??If you have questions, please contact your health care provider. Indication: Hygroma Technique: Volumetric multidetector CT images of the head were obtained without the administration of low osmolar intravenous contrast. Comparison: CT head March 06, 2024 Findings: There is redemonstration of evolving subacute subdural hemorrhage along the right cerebral convexity, stable from comparison exam. There is persistent effacement of the right cerebral hemisphere without evidence of significant midline shift or additional mass effect. There is age-related cortical atrophy with mild sulcal widening and ex vacuo dilatation of the lateral ventricles. There are chronic small vessel disease changes in the subcortical and periventricular white matter without lost sen-white differentiation. The orbits and their contents are grossly within normal limits. The bony calvarium is grossly intact. The paranasal sinuses are clear. The mastoid air cells are well aerated. Impression: Expected evolution of previously seen right convexity subacute subdural hematoma without evidence of significant midline shift. Otherwise, no new acute intracranial abnormalities. Please note that all CT scans at this facility use dose modulation, iterative reconstruction, and/or weight-based dosing when appropriate to reduce radiation dose to as low as reasonably achievable. Dictated by Karlo Chew MD @ 03/09/2024 9:20:45 AM (Electronically Signed) Procedure Note Karlo Chew MD - 03/09/2024 For Patients: As a result of the Century Cures Act, medical imagingexams and procedure reports are released immediately into your electronicmedical record. You may view this report before your referring provider.If you have questions, please contact your health care provider. Indication: Hygroma Technique: Volumetric multidetector CT images of the head were obtained without theadministration of low osmolar intravenous contrast. Comparison: CT head March 06, 2024 Findings: There is redemonstration of evolving subacute subdural hemorrhage alongthe right cerebral convexity, stable from comparison exam. There is persistent effacement of the right cerebral hemisphere withoutevidence of significant midline shift or additional mass effect. There is age-related cortical atrophy with mild sulcal widening and exvacuo dilatation of the lateral ventricles. There are chronic small vessel disease changes in the subcortical andperiventricular white matter without lost sen-white differentiation. The orbits and their contents are grossly within normal limits. The bony calvarium is grossly intact. The paranasal sinuses are clear. The mastoid air cells are well aerated. Impression: Expected evolution of previously seen right convexity subacute subduralhematoma without evidence of significant midline shift. Otherwise, no new acute intracranial abnormalities. Please note that all CT scans at this facility use dose modulation,iterative reconstruction, and/or weight-based dosing when appropriate toreduce radiation dose to as low as reasonably achievable. Dictated by Karlo Chew MD @ 03/09/2024 9:20:45 AM (Electronically Signed) [employer] CT * MAGNESIUM (03/09/2024 8:12 AM CDT) Only the most recent of4 resultswithin the time period is included. MAGNESIUM 2.0 1.6 - 2.4 mg/dL 03/09/2024 9:31 AM CDT [facility] Blood BLOOD SPECIMEN / Unknown Venipuncture / Unknown 03/09/2024 8:12 AM CDT 03/09/2024 8:19 AM CDT Derek Hassan MD CHEMISTRY Performing Organization Address [facility] Co de Phone Number [facility] [address] [place] [address], * SCAN-CARDIAC STRIP (03/09/2024 2:45 AM CDT) Scanner OTHER * SCAN-CARDIAC STRIP (03/08/2024 8:30 PM CDT) Scanner OTHER * POTASSIUM (03/08/2024 4:56 PM CDT) Only the most recent of2 resultswithin the time period is included. POTASSIUM 3.7 3.5 - 5.1 mmol/L 03/08/2024 5:38 PM CDT [facility] Blood BLOOD SPECIMEN / Unknown Venipuncture / Unknown 03/08/2024 4:56 PM CDT 03/08/2024 5:12 PM CDT Apolinar Merrill MD CHEMISTRY Performing Organization Address City/[facility] Co de Phone Number [facility] [address] [place] [address], * PHOSPHORUS (03/08/2024 10:35 AM CDT) Only the most recent of3 resultswithin the time period is included. PHOSPHORUS 2.7 2.5 - 4.5 mg/dL 03/08/2024 12:00 PM CDT [facility] Blood BLOOD SPECIMEN / Unknown Venipuncture / Unknown 03/08/2024 10:35 AM CDT 03/08/2024 10:56 AM CDT Apolinar Merrill MD CHEMISTRY [facility] [address] [place] [address], * SCAN-CARDIAC STRIP (03/08/2024 6:53 AM CDT) Scanner OTHER * CT CHEST ABDOMEN PELVIS W (03/07/2024 3:41 PM CDT) Anatomical Region Laterality Modality Abdomen, Pelvis, AORTA, LIVER, SPLEEN, CHEST Computed Tomography 03/08/2024 5:46 AM CDT Impressions 03/08/2024 5:46 AM CDT 1. ??Acute or subacute displaced fracture of the right greater trochanter. Correlation with recent trauma is suggested. 2. ??Mild residual sigmoid colonic wall thickening which may correlate with the patient`s known colon cancer. 3. ??No definite metastatic disease within the chest, abdomen or pelvis. 4. ??Fatty infiltration of the liver. 5. ??Coronary artery disease. 6. ??A few stable small likely benign pulmonary micro nodules. 7. Incidental subcentimeter pancreatic cystic lesion. Considerations include cyst, intrapancreatic pseudocyst or small cystic pancreatic tumor. Surveillance is recommended. Please note that all CT scans at this facility use dose modulation, iterative reconstruction, and/or weight-based dosing when appropriate to reduce radiation dose to as low as reasonably achievable. Dictated by Avery Bennett MD @ 03/08/2024 5:46:53 AM (Electronically Signed) Narrative 03/08/2024 5:46 AM CDT For Patients: ??As a result of the 21st Century Cures Act, medical imaging exams and procedure reports are released immediately into your electronic medical record. ??You may view this report before your referring provider. ??If you have questions, please contact your health care provider. INDICATION: Colon cancer. TECHNIQUE: Intravenous contrast enhanced CT of the chest, abdomen and pelvis. 80 mL Omnipaque 350 intravenous contrast was administered. COMPARISON: . 12/23/2022. FINDINGS: Chest: Mild atherosclerotic changes of the thoracic aorta without aneurysm. Coronary artery calcifications. No pericardial effusion. No enlarged mediastinal or hilar lymph nodes. No enlarged axillary lymph nodes. Stable 3 millimeter micronodule within the lingula on image number 78 of series 2. Stable 3 millimeter micronodule right lower lobe image number 79. No new or enlarged pulmonary nodules. Minor atelectasis or scarring within the lung bases. No pleural effusion. Degenerative changes of the spine. No acute fractures. Abdomen and pelvis: Fatty infiltration of liver. No focal liver mass. Gallbladder nondistended. No biliary ductal dilatation. Spleen and adrenal glands normal. 6 millimeter cystic lesion within the pancreatic head uncinate process junction region on image number 192 of series 2 is stable. No main pancreatic ductal dilatation. Symmetric nephrograms. No renal mass or hydronephrosis. Urinary bladder nondistended. No small bowel obstruction. No appendicitis. There is colonic diverticulosis without acute diverticulitis. Improvement in previously seen distal sigmoid colonic wall thickening which is seen on image number 233 of series 2. Atherosclerotic changes of the abdominal aorta without aneurysm. No enlarged lymph nodes. No fluid collection or free air. There is an acute versus subacute displaced fracture of the greater trochanter on the right. Fracture is noted on coronal image number 68 of series 604. Fracture demonstrates the order of 2.7 centimeters displacement. Correlation with recent trauma is suggested. Degenerative changes of the lumbar spine. No acute lumbar fracture. Procedure Note Avery Bennett MD - 03/08/2024 For Patients: As a result of the Century Cures Act, medical imagingexams and procedure reports are released immediately into your electronicmedical record. You may view this report before your referring provider.If you have questions, please contact your health care provider. INDICATION: Colon cancer. TECHNIQUE: Intravenous contrast enhanced CT of the chest, abdomen and pelvis. 80 mLOmnipaque 350 intravenous contrast was administered. COMPARISON: . 12/23/2022. FINDINGS: Chest: Mild atherosclerotic changes of the thoracic aorta without aneurysm.Coronary artery calcifications. No pericardial effusion. No enlargedmediastinal or hilar lymph nodes. No enlarged axillary lymph nodes. Stable3 millimeter micronodule within the lingula on image number 78 of series2. Stable 3 millimeter micronodule right lower lobe image number 79. Nonew or enlarged pulmonary nodules. Minor atelectasis or scarring withinthe lung bases. No pleural effusion. Degenerative changes of the spine. Noacute fractures. Abdomen and pelvis: Fatty infiltration of liver. No focal liver mass. Gallbladdernondistended. No biliary ductal dilatation. Spleen and adrenal glandsnormal. 6 millimeter cystic lesion within the pancreatic head uncinateprocess junction region on image number 192 of series 2 is stable. No mainpancreatic ductal dilatation. Symmetric nephrograms. No renal mass orhydronephrosis. Urinary bladder nondistended. No small bowel obstruction. No appendicitis. There is colonicdiverticulosis without acute diverticulitis. Improvement in previouslyseen distal sigmoid colonic wall thickening which is seen on image [id number] of series 2. Atherosclerotic changes of the abdominal aorta without aneurysm. Noenlarged lymph nodes. No fluid collection or free air. There is an acute versus subacute displaced fracture of the greatertrochanter on the right. Fracture is noted on coronal image number 68 ofseries 604. Fracture demonstrates the order of 2.7 centimetersdisplacement. Correlation with recent trauma is suggested. Degenerativechanges of the lumbar spine. No acute lumbar fracture. IMPRESSION: 1. Acute or subacute displaced fracture of the right greater trochanter.Correlation with recent trauma is suggested. 2. Mild residual sigmoid colonic wall thickening which may correlate withthe patient`s known colon cancer. 3. No definite metastatic disease within the chest, abdomen or pelvis. 4. Fatty infiltration of the liver. 5. Coronary artery disease. 6. A few stable small likely benign pulmonary micro nodules. 7. Incidental subcentimeter pancreatic cystic lesion. Considerationsinclude cyst, intrapancreatic pseudocyst or small cystic pancreatic tumor.Surveillance is recommended. Please note that all CT scans at this facility use dose modulation,iterative reconstruction, and/or weight-based dosing when appropriate toreduce radiation dose to as low as reasonably achievable. Dictated by Avery Bennett MD @ 03/08/2024 5:46:53 AM (Electronically Signed) Sherri Watts MD CT * SCAN-CARDIAC STRIP (03/07/2024 2:39 PM CDT) Scanner OTHER * SCAN-CARDIAC STRIP (03/07/2024 8:34 AM CDT) Scanner OTHER * SCAN-CARDIAC STRIP (03/07/2024 12:12 AM CDT) Scanner OTHER * SCAN-CARDIAC STRIP (03/06/2024 8:56 PM CDT) Scanner OTHER * (ABNORMAL) CBC WITH AUTO DIFFERENTIAL (03/06/2024 8:47 PM CDT) Only the most recent of2 resultswithin the time period is included. WHITE BLOOD COUNT 6.4 4.5 - 11.0 thou/cu mm 03/06/2024 8:58 PM CDT [facility] RED BLOOD COUNT 2.43(L) 4.00 - 5.20 mil/cu mm 03/06/2024 8:58 PM CDT [facility] [facility] HEMOGLOBIN 8.8(L) 12.0 - 16.0 g/dL 03/06/2024 8:58 PM CDT [facility] HEMATOCRIT 25.9(L) 33.0 - 51.0 % 03/06/2024 8:58 PM CDT [facility] MCV 107(H) 80 - 100 fL 03/06/2024 8:58 PM CDT [facility] MCH 36.2(H) 26.0 - 34.0 pg 03/06/2024 8:58 PM CDT [facility] MCHC 34.0 32.0 - 36.0 g/dL 03/06/2024 8:58 PM CDT [facility] RDW 13.0 11.5 - 15.5 % 03/06/2024 8:58 PM CDT [facility] PLATELET COUNT 212 140 - 440 thou/cu mm 03/06/2024 8:58 PM CDT [facility] MPV 9.5 6.5 - 11.0 fL 03/06/2024 8:58 PM CDT [facility] NRBC 0.0 % 03/06/2024 8:58 PM CDT [facility] ABS NRBC 0.0 thou /cu mm 03/06/2024 8:58 PM CDT [facility] % NEUT 63.4 % 03/06/2024 8:58 PM CDT [facility] % LYMPH 22.2 % 03/06/2024 8:58 PM CDT [facility] % MONO 11.5 % 03/06/2024 8:58 PM CDT [facility] % EOS 1.9 % 03/06/2024 8:58 PM CDT [facility] % BASO 0.5 % 03/06/2024 8:58 PM CDT [facility] % IMMATURE GRAN (METAS,MYELOS,TX OS) 0.5 % 03/06/2024 8:58 PM CDT [facility] ABSOLUTE NEUTROPHILS 4.0 1.7 - 7.0 thou/cu mm 03/06/2024 8:58 PM CDT [facility] ABSOLUTE LYMPHOCYTES 1.4 0.9 - 2.9 thou/cu mm 03/06/2024 8:58 PM CDT [facility] ABSOLUTE MONOCYTES 0.7 <0.9 thou/cu mm 03/06/2024 8:58 PM CDT [facility] ABSOLUTE EOSINOPHILS 0.1 <0.5 thou/cu mm 03/06/2024 8:58 PM CDT [facility] ABSOLUTE BASOPHILS 0.0 <0.3 thou/cu mm 03/06/2024 8:58 PM CDT [facility] ABSOLUTE IMMATURE GRANULOCYTES(MET ,MYELOS,PROS) 0.0 <0.3 thou/cu mm 03/06/2024 8:58 PM CDT [facility] Blood BLOOD SPECIMEN / Unknown Venipuncture / Unknown 03/06/2024 8:47 PM CDT 03/06/2024 8:53 PM CDT Kait Sakshi Luis DO HEMATOLOGY [facility] [address] [place] [address], * Protime - INR (03/06/2024 8:47 PM CDT) INR 1.0 <1.3 03/06/2024 9:08 PM CDT [facility] PROTIME 11.3 10.3 - 12.3 sec 03/06/2024 9:08 PM CDT [facility] Blood BLOOD SPECIMEN / Unknown Venipuncture / Unknown 03/06/2024 8:47 PM CDT 03/06/2024 8:53 PM CDT Narrative [facility] - 03/06/2024 9:08 PM CDT ?Therapeutic Range 2.0-3.0 for most anticoagulated patients 2.5-3.5 or 4.0 for high risk patients The INR is only used for patients on stable oral anticoagulant therapy. It makes no significant contribution to the diagnosis or treatment of patients whose Protime is prolonged for other reasons. INR results are increased when heparin levels exceed 1.0 U/mL, which corresponds to an aPTT >125 seconds if the patient is on UFH. Kait Cantor Luis DO HEMATOLOGY Performing Organization Address [facility] de Phone Number [facility] [address] [place] [id number], * (ABNORMAL) Basic Metabolic Panel (03/06/2024 8:47 PM CDT) SODIUM 139 136 - 145 mmol/L 03/06/2024 9:31 PM CDT [facility] POTASSIUM 3.4(L) 3.5 - 5.1 mmol/L 03/06/2024 9:31 PM CDT [facility] CHLORIDE 99 98 - 107 mmol/L 03/06/2024 9:31 PM CDT [facility] CO2,TOTAL 27 22 - 29 mmol/L 03/06/2024 9:31 PM CDT [facility] ANION GAP 13 5 - 18 03/06/2024 9:31 PM CDT [facility] GLUCOSE 96 70 - 99 mg/dL 03/06/2024 9:31 PM T [facility] CALCIUM 8.5(L) 8.8 - 10.2 mg/dL 03/06/2024 9:31 PM T [facility] BUN 18 8 - 23 mg/dL 03/06/2024 9:31 PM T [facility] CREATININE 0.50 0.50 - 0.90 mg/dL 03/06/2024 9:31 PM T [facility] BUN/CREAT RATIO 36(H) 10 - 20 9:31 PM T [facility] eGFR >90 >90 mL/min/1.7 3m2 03/06/2024 9:31 PM [facility] Comment:As of 2022, eG FR is calculated by the CKD-EPI creatinine equation without race adjustment. ??eGFR can be influenced by muscle mass, exercise, and diet. ??The reported eGFR is an estimation only and is only applicable if the renal function is stable. Blood BLOOD SPECIMEN / Unknown Venipuncture / Unknown 03/06/2024 8:47 PM CDT 03/06/2024 8:53 PM CDT Kait Smith DO CHEMISTRY [facility] [address] [place] [address], * (ABNORMAL) COMP METABOLIC PANEL (12/31/2023 12:12 PM PRIMARY CARE PEDIATRICIAN) SODIUM 140 136 - 145 mmol/L 12/31/2023 10:57 PM PRIMARY CARE PEDIATRICIAN [facility] POTASSIUM 5.8(H) 3.5 - 5.1 mmol/L 12/31/2023 10:57 PM PRIMARY CARE PEDIATRICIAN [facility] CHLORIDE 103 98 - 107 mmol/L 12/31/2023 10:57 PM [facility] CO2,TOTAL 22 22 - 29 mmol/L 12/31/2023 10:57 PM [facility] ANION GAP 15 5 - 18 12/31/2023 10:57 PM [facility] GLUCOSE 127(H) 70 - 99 mg/dL 12/31/2023 10:57 PM [facility] CALCIUM 10.3(H) 8.8 - 10.2 mg/dL 12/31/2023 10:57 PM [facility] BUN 14 8 - 23 mg/dL 12/31/2023 10:57 PM [facility] CREATININE 0.72 0.50 - 0.90 mg/dL 12/31/2023 10:57 PM [facility] BUN/CREAT RATIO 19 10 - 20 10:57 PM [facility] eGFR >90 >90 mL/min/1.7 3m2 12/31/2023 10:57 PM [facility] Comment:As of 2022, eG FR is calculated by the CKD-EPI creatinine equation without race adjustment. ??eGFR can be influenced by muscle mass, exercise, and diet. ??The reported eGFR is an estimation only and is only applicable if the renal function is stable. ALBUMIN 4.6 4.0 - 4.9 g/dL 12/31/2023 10:57 PM [facility] PROTEIN,TOTAL 7.8 6.0 - 8.0 g/dL 12/31/2023 10:57 PM [facility] BILIRUBIN,TOTAL 0.5 0.0 - 1.2 mg/dL 12/31/2023 10:57 PM [facility] ALK PHOSPHATASE 117(H) 35 - 104 IU/L 12/31/2023 10:57 PM [facility] ALT (SGPT) 121(H) 10 - 35 IU/L 12/31/2023 10:57 PM [facility] AST (SGOT) 138(H) 10 - 35 IU/L 12/31/2023 10:57 PM PRIMARY CARE PEDIATRICIAN [facility] Blood BLOOD SPECIMEN / Unknown Butterfly / Unknown 12/31/2023 12:12 PM PRIMARY CARE PEDIATRICIAN 12/31/2023 12:14 PM PRIMARY CARE PEDIATRICIAN Ghadai Nancy WEAVER CHEMISTRY [facility] [address] [place] [address], [place] * COLONOSCOPY (07/08/2023 12:07 PM CDT) 07/08/2023 12:0 7 PM CDT Narrative Transcriptions Aime Wilkes MD - 07/08/2023 1:58 PM CDT [facility] Patient Name: Simona Velázquez Procedure Date: 07/08/2023 Gender: Female Date of : 1960 Admit Type: Inpatient Procedure: Colonoscopy Proceduralist: Aime Wilkes MD - [facility] Indications/Pre-Op Diagnosis: Clinically significant diarrhea ofunexplained origin, Iron deficiency anemia Medications: Monitored Anesthesia Care Procedure Description: The patient had risks, benefits and alternatives explained to andgave informed consent. The patient had a stable cardiopulmonary status and judged an adequate candidate for sedation. The endoscope [id number] was passed through the anus and advanced to the terminal ileum, with identification of theappendiceal orifice and IC valve. The colonoscopy was performed withoutdifficulty. The patient tolerated the procedure well. The quality of the bowel preparation was evaluated using the BBPS (Nellis Bowel Preparation Scale) with scores of: Right [...] or Most Recently Relevant to Health Maintenance Additional Health Concerns Infection Onset Date Last Indicated Resolved Time CLOSTRIDIUM DIFFICILE Comment:03/09/24 - Pt to remain in Enteric due to active infection, diarrhea, and vanco treatment. Order Enteric Precautions + C diff test on 12/2023, 06/2023; patient to remain in Enter[facility] Precautions for duration of 03/06/24 hospitalization. [facility] Precautions are not required on subsequent admissions provided: 1) >3 weeks since positive C diff test; 2) diarrhea resolved; and 3) patient has completed CDI antibiotics (excluding vanco taper). C. diff testing or Enteric Precautions are not required on subsequent admissions unless patient is presenting with C diff symptoms 03/09/2024 03/09/2024 Advance Directives * Full Code (Latest Code Status on File) Date Activated Date Inactivated Comments 03/07/2024 10:37 AM Question Answer Comments Code Status Discussion: Reviewed Preferences * Full Code Date Activated Date Inactivated Comments 03/06/2024 7:28 PM 03/07/2024 10:37 AM Question Answer Comments Code Status Discussion: Unable to Assess Preferences, Provider to review later * Full Code Date Activated Date Inactivated Comments 06/30/2023 11:58 [...] Answer Comments Code Status Discussion: Reviewed Preferences Care Teams Forming Machine Tender Relationship Specialty Start Date End Date Pcp, No . PCP - General 12/31/23 [facility] [address] [address] 07/16/23 Alexi Keating, RN [address] [address] Nurse Navigator - Oncology Registered Nurse 10/08/23 Kim Gallo MD [address] [address] Surgery - Colon and Rectal 10/08/23
== END 2024-03-06 18:26 | disposition home or self-care (01) ==
LOC: AMB 03-09 18:01
PROVIDERS: PCP Student in an Organized Health Care Education/Training Program; Visit Provider Family Medicine
DX: S06.5XAS Traumatic subdural hemorrhage with loss of consciousness status unknown, sequela (principal)
CPT/HCPCS: A0425; A0427

== ENCOUNTER 2025-01-03 15:30 | Outpatient (CLI) | payer MEDICAID, SELFPAY | END 2025-01-03 15:31 | disposition home or self-care (01) | LOC: AMB 01-07 03:47 | PROVIDERS: PCP Student in an Organized Health Care Education/Training Program; Visit Provider Emergency Medicine Emergency Medical Services | DX: R41.82 Altered mental status, unspecified (principal); R00.0 Tachycardia, unspecified; R51.9 Headache, unspecified | CPT/HCPCS: A0425; A0427 ==

== ENCOUNTER 2025-01-03 16:06 | Inpatient (IN) | payer MEDICAID, SELFPAY ==
[2025-01-03] VITALS (37 sets, daily range): BP systolic 136–192; BP diastolic 91–135; PULSE 75–163; RESP 9–26; TEMP 36.4–36.5; O2SAT 94–100; BMI 19.5; BMI 19.1
--- OUTSIDE RECORDS SUMMARY | 2025-01-03 16:08 | XMS_ITS | Continuity of Care Document ---
Author Organization [facility] Address [address] [address] [place] [address] Phone Care Team Providers Care Manager Fine Dining Name Role Phone Arron Harper MD Unavailable Unavailable Procedures Procedure Date Colonoscopy Flex; W/remov Les- 24 Init Inpt Cons New/est Mod-hi 4 [facility] Hosp-da E&m Minr Compl 3 [facility]t Hosp-da E&m Minr Compl 3 Subsqt Hosp-da E&m Stable 15 M 23 Colonoscopy Flex; W/bx 1/mx Colonoscopy Flex; W/remov Les- 23 Colonoscopy W/Submucosal Injection Init Inpt Cons New/est Mod-hi 3 Subsqt Hosp-da E&m Minr Compl 3 Init Inpt Cons New/estab Mod 5 23 Advance Directives Directive Yes / No Effective Date File Name No Information Encounters Encounter Description Practice Location Reason(s) For Visit Diagnoses Date Provider Providers Copied on Encounter [facility], [address] [address], [place], [place], [id number], [place] tel:[phone] [facility] No Information 4 Leroy Heller. [address] [place] [address], [facility] [address], [place], [place], [id number] , [place]. tel:[phone] Referring Provider: Arrno Crespo, [address] [place] [address] [address], [place], [address] . tel:[phone] Init Inpt Cons New/est Mod-hi [facility], [address] [address], [place], [place], [id number], [place] tel:[phone] [facility] No Information 4 Estevan Jaffe. [address] [facility], [facility] [address], [place], [place], [id number] , [place]. tel: [phone] Referring Provider: Lesly Sheikh MD, [address] [place] [address], [place], [address]. tel:[phone] Sub[facility]t Hosp-da E&m Minr Compl [facility], [address] [address], [place], [place], [address], [place] tel:[phone] [facility] No Information 3 Fili Hernandez. [address] [facility], [facility] [address], [place], [place], [address] , [place]. tel: [phone] Referring Provider: Mary Penn NP, [address] [address], [place], [address] . tel:[phone] [facility], [address] [address], [place], [place], [id number], [place] tel:[phone] [facility] No Information 3 Chung Salomon. [address] [facility], [facility] [address], [place], [place], [address] , [place]. tel: [phone] Referring Provider: Aime Romano, [address] [facility] [address], [place], [address] . tel:[phone] Init Inpt Cons New/est Mod-hi [facility], [address] [address], [place], [place], [id number], [place] tel:[phone] [facility] No Information 3 Neri Carrillo. [address] [facility], [facility] [address], [place], [place], [id number] , [place]. tel: [phone] Referring Provider: Marissa Penny, [address] [place] [address] [address], [place], [address]. tel:[phone] Init Inpt Cons New/estab Mod 5 [facility], [address] [address], [place], [place], [address], [place] tel:[phone] [facility] No Information 3 Austen Marks. [address] [facility], [address], [place], [place], [id number] , [place]. tel:[phone] Referring Provider: Alta Delacruz MD S, [address], [place], [address]. tel:[phone] Family History Family Member Type Diagnosis Age At Onset No Information Payers Payer name Insurance type Covered alliance party ID Whitley cade(s) [place] [id number] Social History Type Description Quantity Date Captured Comments Sex Female Smoking Status No Information Chief Complaint And Reason For Visit No Information Reason For Referral Reason For Referral No Information History Of Present Illness Encounter Date Complaint History Of Prese nt Illness No Information Functional Status Date Functional Assessmen t No Information Instructions Date Instruction Additional Infor mation No Information Assessments Type Assessment Date No Information Patient Care Teams Name Effective Dates (start - stop) Status Members No Information
--- OUTSIDE RECORDS SUMMARY | 2025-01-03 16:08 | XMS_ITS | Clinical Summary ---
Author Organization [facility] Address [place], [place] [address] Care Team Providers Care Program Coordinator Name Role Phone Alexi Keating RN Unavailable [phone] Kim Gallo MD Unavailable Pcp, No Primary Care Provider Unavailabl e Allergies Active Allergy Reactions Criticality Noted Date Comments Penicillins *Unknown 08/04/2022 Tolerated pip/tazo 07/2022 Medications multivitamin chewIndications:To bacco use Chew 1 Tablet by mouth once daily. 90 Tablet 3 02/01/20 23 Active potassium chloride (KLOR-CON M20) 20 mEq Extended-Release tabletIndications: Hypokalemia Take 2 Tablets (40 mEq) by mouth two times daily with meals. 360 Tablet 1 02/01/20 23 Active metoprolol tartrate (LOPRESSOR) 25 mg tabletIndications: Coronary artery disease, unspecified vessel or lesion type, unspecified whether angina present, unspecified whether [place] or transplanted heart TAKE 1/2 TABLET(12.5 MG) BY MOUTH TWICE DAILY 30 Tablet 10/13/20 23 Active Vitamin B-1 100 mg tablet Take 100 mg by mouth once daily. 12/26/19 24 Active melatonin 5 mg tab tablet Take 5 mg by mouth at bedtime if needed for Sleep. Active dextromethorphan-g uaiFENesin (ROBITUSSIN DM) (10-100mg/5mL) syrupIndications:S moking Take 10 mL by mouth every 4 hours if needed for Cough 118 mL 4 12:05 PM CDT 07/04/20 24 Active oxyCODONE-acetamin ophen (PERCOCET) 5-325 mg per tabletIndications: Primary adenocarcinoma of ascending colon (HC) Take 1 Tablet by mouth every 4 hours if needed for Pain. Max acetaminophen dose: 4000mg in 24 hrs. 10 Tablet 07/04/20 Active nicotine 14 mg/24 hr (NICODERM; HABITROL) 14 mg/24 hr patchIndications:S moking Apply 1 Patch on dry, clean, hairless skin once daily if needed for Nicotine Craving. 10 Patch 12:05 PM CDT 07/04/20 Active Active Problems Problem Noted Date Diagnosed Date Displaced fracture of greate r trochanter of right femur, initial encounter for closed fracture 03/18/2024 Chronic subdural hematoma 03/09/2024 Acute subdural hematoma [...] Pressure injury of head (face), unstageable 07/26 Overview (08/04/2022): Present on arrival Pressure ulcers of skin of multiple topographic sites 08/04/2022 Overview (08/04/2022): Pressure ulcers along left side and on abdomen and chest; due to laying on floor for prolonged period Multiple subsegmental pulmon yasir emboli without acute cor pulmonale 08/04/2022 Dehydration with hypernatremia 08/04/2022 Resolved Problems Problem Noted Date Diagnosed Date Resolved Date Hypokalemia 08/04/2022 12/31/2023 Immunizations Name Administration Dates Next Due COVID-19 vaccine (Moderna 100mcg/0.5mL) PF, MDV 03/10/2021,02/09/2021 COVID-19 vaccine (Moderna 50 mcg/0.5mL) 12YO+ BIVALENT PF, MDV 11/09/2021 Family History Medical History Relation Name [...] e alcohol) Social Connections Answer Date Recorded Do you often feel lonely or isolated from those around you? 4 03/12/2024 Financial Resource Strain Answer Date R ecorded Difficulty of Paying Living Expenses 3 03/12/2024 Difficulty of Paying Living Expenses Not on file 03/12/2024 Food Insecurity Answer Date Recorded Do you worry your food will run out before you are able to buy more? 1 03/12/2024 Transportation Needs Answer Date Record ed Does lack of transportation keep you from medica l appointments? 1 03/12/2024 Does lack of transportation keep you from work, meetings or getting things that you need? 1 03/12/2024 Housing Stability Answer Date Recorded What is your housing situation today? 1 03/12/2024 Interpersonal Safety Answer Date Record ed Are you being hit, kicked, p ushed or yelled at (see row info)? No 03/12/2024 Interpersonal Safety Abuse 12 - 18 Not on file 03/12/2024 Interpersonal Safety Ambulatory Vulnerability No t on file 03/12/2024 Utilities Answer Date Recorded Do you have trouble paying f or utilities (for example, heat, electricity, water, phone)? 1 03/12/2024 Comments No Sex and Gender Information Value Date Recorded Sex Assigned at Not on file Legal Sex Female 8:11 PM CDT Gender Identity Not on file Sexual Orientation Not on file Occupation Industry Job Start Date Job End Date sales Not on file Not on file Not on file Obstetrics History Last Filed Vital Signs Vital Sign Reading Time Taken Comments Blood Pressure 137/95 08/04/2024 2:30 PM CDT Pulse 89 08/04/2024 2:30 PM CDT Temperature 36.7 C (98.1 F) 08/04/2024 2:30 PM CDT Respiratory Rate 16 08/04/2024 2:30 PM CDT Oxygen Saturation 99% 08/04/2024 2:30 PM CDT Inhaled Oxygen Concentration - - Weight 57.2 kg (126 lb) 07/08/2024 9:25 AM CDT Height 172.7 cm (5' 8) 07/08/2024 9:25 AM CDT Body Mass Index 19.16 07/08/2024 9:25 AM CDT Plan of Treatment Health Maintenance Due Date Last Done Comments Tdap 1971 Depression screening for age 12+ 1972 HIV for age 15-65 1975 Hepatitis C screening for ag e 18-79 1978 Pneumococcal series for age 50+ (1 of 2 - PCV) 1979 Tetanus booster 1980 Pap test for age 21-65 1981 Lipids for age 45-75 2005 Mammogram for age 45-75 2005 Zoster (shingles) series for age 50+ (1 of 2) 2010 RSV vaccine for adults or (1 - Risk 60-74 years 1-dose series) 2020 COVID-19 vaccine series ( - 2023- season) 2024 11/09/2021, 03/10/2021, 02/09/2021 Influenza for age 50-64 07/26/2024 BMI (ht and wt on same day) for age 18+ 05/11/2025 05/11/2024, 09/06/2023, 07/26/2023, Additional history exists Colonoscopy through age 75 07/01/2034 07/01/2024, Medical Devices Implanted Type Area Convention Worker Device Identifier Shelf Expiration Date Model / Serial / Lot Screw Neuro 4mm Matrixneuro Slf Drill Titnm - [id number] Implanted:Qty: 3 on 04/02/2024 by Juan Francisco Santizo MBChB at [facility] Right: Cranium J [employer] J Dep[employer] CMF [id number] 4.01 / / Guru Hole Cover Implanted:Qty: 1 on 04/02/2024 by Juan Francisco Santizo MBChB at [facility] Right: Cranium [id number] / / Procedures Procedure Name Priority Date/Time Associated Diagnosis Comments COLONOSCOPY 07/01/2024 8:17 AM CDT from Last 3 Months or Most Recently Relevant to Health Maintenance Results * COLONOSCOPY (07/01/2024 8:17 AM CDT) 07/01/2024 8:17 AM CDT Narrative Transcriptions Arron Harper MD - 07/01/2024 8:51 AM CDT [facility] Patient Name: Simona Velázquez Procedure Date: 07/01/2024 Gender: Female Date of : 1960 Admit Type: Inpatient Procedure: Colonoscopy Proceduralist: Arron Harper MD - [facility] Indications/Pre-Op Diagnosis: History of advanced adenomatous polyps, 1 of which in the ascending colon containedcancer; patient is scheduled for right hemicolectomy tomorrow Medications: MAC Procedure Description: The patient had risks, benefits and alternatives explained to andgave informed consent. The patient had a stable cardiopulmonary status and judged an adequate candidate for sedation. The endoscope -[id number] was passed through the anus andadvanced to the cecum, identified by appendiceal orifice and ileocecal valve.The colonoscopy was performed without difficulty. The patient toleratedthe procedure well. The quality of the bowel preparation was fair and 15 percent obscured. The ileocecal valve and the appendiceal orificewere photographed. Complications: No immediate complications. Estimated Blood Loss & Specimen: Estimated blood loss: Minimal. Findings: The colon prep was only fair and small lesions could have beenmissed. There was left-sided diverticulosis. There was a 5 mm sessile polypin the region of the descending colon that was resected via cold snareand retrieved. There were no other polyps in the colon. The exam was otherwise without abnormality. Impressions/Post-Op Diagnosis: Diverticulosis; left-sided Diminutive left-sided adenoma Otherwise negative exam with some prep limitations Recommendation: - Proceed with surgery as scheduled Arron Harper MD 07/01/2024 8:50:51 AM This report has been signed electronically. Note Initiated On: 07/01/2024 8:17 AM us Arron Harper MD PROCEDURE ORD Final Result from Last 3 Months or Most Recently Relevant to Health Maintenance Additional Health Concerns Infection Onset Date Last Indicated C diff History Comment:+ C diff test on 12/2023, 06/2023. Enteric Precautions are not required provided: 1) >3 weeks since positive C diff test; 2) diarrhea resolved; and 3) patient has completed CDI antibiotics (excluding vanco taper). C. diff testing or Enteric Precautions are not required on subsequent admissions unless patient is presenting with C. diff symptoms. 03/23/2024 03/23/[address] [place] [id number] [facility] [address] [place] [id number] [facility] Advance Directives * Full Code (Latest Code Status on File) Date Activated Date Inactivated Comments 07/09/2024 7:34 AM * Full Code Date Activated Date Inactivated Comments 07/02/2024 7:15 AM 07/04/2024 4:56 PM Question Answer Comments Code Status Discussion: Unable to Assess Preferences, Provider to review later * Full Code Date Activated Date Inactivated Comments 06/30/2024 1:09 PM 07/02/2024 7:15 AM Question Answer Comments Code Status Discussion: Unable to Assess Preferences, Provider to review later * Full Code Date Activated Date Inactivated Comments 03/07/2024 10:37 AM 04/07/2024 11:55 AM Question Answer Comments Code Status Discussion: Reviewed Preferences * Full Code Date Activated Date Inactivated Comments 03/06/2024 7:28 PM 03/07/2024 10:37 AM Question Answer Comments Code Status Discussion: Unable to Assess Preferences, Provider to review later Care Teams Program Coordinator Relationship Specialty Start Date End Date Pcp, No . PCP - General 12/31/23 Alexi Keating, RN [address] [address] Nurse Navigator - Oncology Registered Nurse 10/08/23 Kim Gallo MD [address] [address] Surgery - Colon and Rectal 10/08/23
--- OUTSIDE RECORDS SUMMARY | 2025-01-03 16:08 | XMS_ITS ---
Author Organization [facility] Address Unknown Allergies, Adverse Reactions, Alerts Substance Reaction Status Noted Date Resolved Date Penicillin active 04/07/2024 Problems Problem Status Start Date End Date TRAUMATIC SUBDURAL HEMORRHAG E WITH LOSS OF CONSCIOUSNESS STATUS UNKNOWN, SUBSEQUENT ENCOUNTER (S06.5XAD - ICD-10-CM) ACTIVE 04/07/2024 NONDISPLACED FRACTURE OF GRE ATER TROCHANTER OF RIGHT FEMUR, SUBSEQUENT ENCOUNTER FOR CLOSED FRACTURE WITH ROUTINE HEALING (Primary) (S72.114D - ICD-10-CM) ACTIVE 04/07/2024 ALCOHOLIC LIVER DISEASE, UNSPECIFIED (K70.9 - ICD-10-C M) ACTIVE 04/07/2024 NON-ST ELEVATION (NSTEMI) MY OCARDIAL INFARCTION (I21.4 - ICD-10-CM) ACTIVE 04/07/2024 HISTORY OF FALLING (Z91.81 - ICD-10-CM) ACTIVE 0 04/07/2024 ESSENTIAL (PRIMARY) HYPERTENSION (I10 - ICD-10-CM) ACT MIRTA 04/07/2024 ENCOUNTER FOR SURGICAL AFTER CARE FOLLOWING SURGERY ON THE NERVOUS SYSTEM (Z48.811 - ICD-10-CM) ACTIVE 04/07/2024 MUSCLE WEAKNESS (GENERALIZED) (M62.81 - ICD-10-CM) ACT MIRTA 04/07/2024 MALIGNANT NEOPLASM OF COLON, UNSPECIFIED (C18.9 - ICD-10-CM) ACTIVE 04/07/2024 NUTRITIONAL ANEMIA, UNSPECIFIED (D53.9 - ICD-10-CM) AC TIVE 04/07/2024 OTHER LOW BACK PAIN (M54.59 - ICD-10-CM) ACTIVE 04/07/2024 MODERATE PROTEIN-CALORIE MALNUTRITION (E44.0 - ICD-10- CM) ACTIVE 04/07/2024 ANXIETY DISORDER, UNSPECIFIED (F41.9 - ICD-10-CM) ACTI VE 04/07/2024 CENTRILOBULAR EMPHYSEMA (J43.2 - ICD-10-CM) ACTIVE 04/07/2024 ENTEROCOLITIS DUE TO CLOSTRI DIUM DIFFICILE, NOT SPECIFIED RECURRENT (A04.72 - ICD-10-CM) ACTIVE 04/07/2024 HYPOMAGNESEMIA (E83.42 - ICD-10-CM) ACTIVE 04/07 ATHEROSCLEROTIC HEART DISEAS E OF [place] CORONARY ARTERY WITH UNSPECIFIED ANGINA PECTORIS (I25.119 - ICD-10-CM) ACTIVE 04/07 TOBACCO USE (Z72.0 - ICD-10-CM) ACTIVE HYPOKALEMIA (E87.6 - ICD-10-CM) ACTIVE MAJOR DEPRESSIVE DISORDER, R ECURRENT, UNSPECIFIED (F33.9 - ICD-10-CM) ACTIVE 04/07/2024 Encounters Encounter Performer Performer Role Encounter Diagnoses Location Date Discharge - Discharged / Transferred to another hospital - [facility] 04/07/2024 02:31 pm EDT - 06/30/2024 10:30 am EDT Reason For Referral Surgery Immunizations Vaccine Date TB 2 Step Mantoux Skin Test 04/21/2024 0 9:25 pm EDT TB 2 Step Mantoux Skin Test 04/08/2024 0 1:00 am EDT Social History
[2025-01-03] MEDS: 0.9 % SODIUM CHLORIDE 1000 ml 1,000 ML IV ×2 (16:10→16:58)
--- NOTE | 2025-01-03 16:17 | ED.GENADULT ---
HPI - General Adult General Date Seen: 01/03/25 Chief complaint: Fall/Minor Trauma Stated complaint: Red medical Time Seen by Provider: 01/03/25 16:16 History of Present Illness HPI narrative: 64-year-old female presenting to the ER today by EMS. History is limited by altered mental status per Initially EMS called on the cellphone. They were on scene with this patient. She had been found on the ground of her apartment (apparently in the monge) by a bystander. The patient was disoriented and knew her name but not what day it was. There was concern for potential head injury but the patient was refusing transport. Patient told EMS that she had been in the hospital before and did not want to go back to the hospital. EMS was concerned because of potential head injury, disorientation. Also EMS noted abnormal vitals with a blood pressure of 190 systolic and a pulse in the 190s. I talked to the patient briefly on the phone. She was not oriented to date and was not able to provide a cogent history. I felt that she did not have medical decision-making capacity to res transport and I asked EMS/police were on scene to put her on a transport hold so she could be brought to the ER for evaluation Patient arrived by EMS on a transport hold She says that she went to ?the store? today to get some soup. She does not know what happened after she got back to her apartment. She think she fell. She says that she does not want any workup. She has been in the hospital ?for 6 months? in the past because her heart stopped. She has also apparently had a ?brain bleed? and had surgery at [facility] in the past. She does know what medication she is on. She says she think she might be on potassium. When asking her regular doctor is she says she does not really have one, so to speak.. She says she does have a headache but she has had 1 off and on ever since she had her brain surgery (per records, evacuation of subdural hematoma) last year. She has no other complaints. She says she went to the store today at [employer] [facility] to get ?some soup and then came back to her apartment. Per EMS she did report having ?some alcohol use, but she denies any alcohol intake today. She says she has never had any significant alcohol withdrawal. In review of her medical record from [facility] she has a fairly extensive past history including previous acute subdural hematoma, alcoholism, prolonged QT, anxiety, previous colon cancer, severe anemia, multiple rib fractures, of right hip fracture,, previous PE a rest, and STEMI, multiple subsegmental pulmonary emboli. It looks like she had a right hemicolectomy in August 2024 at [facility] for colon cancer. Per hospitalist notes from 07/03/2024 Pertinent past medical history Nov 2022:out of hospital cardiac arrest in the setting of severe electrolyte derangements attributed to alcohol use and discharged to TCU. 06/2023: found down at her home in a pool of feces and urine by her neighbor. K was 1.3 on admission. She developed a fib and then PEA arrest, ROSC after 1 round of CPR/epinephrine. ECHO showed newly reduced EF 35%. Planned conservative management at the time due to h/o non compliance and poor candidate for antiplt therapy. During that admission pt was seen by psych and addiction medicine, concern that pt lacked medical decision making capacity and son was identified as surrogate decision maker. Pt underwent EGD/Colonoscopy that admission for evaluation of diarrhea and was diagnosed with colon adenocarcinoma. She was discharged home since there was no accepting TCU facility and virtual outpatient CD treatment via [facility] addictions care. 06/2023 - saw colorectal surgery in clinic with son, pt was prescribed appetite stimulant and plan to monitor for weight to plateau before scheduling surgery. Was also diagnosed with c diff around this time and was prescribed vanco with prolonged taper given recurrent diarrhea. 02/2024: admitted to [facility] after a ?mechanical fall - subdural hematoma. Evacuated by Dr Santizo, right middle meningeal artery embolization by IR. Also sustained right greater trochanter fracture - conservative management. Son was appointed as legal guardian ([facility] adult protection). Discharge to TCU - [place] [facility] Per [place] records she was most recently seen in the ER in February 2024. Also past medical history include C diff, history of UTIs, History from the patient initially is limited. She says that she went to the store today to get some soup. She recalls getting home and then does not remember what happened in her apartment. She says she does not want to be here in the ER or be evaluated Subsequently she is more alert. She is able to recall that at [place] Saturday. She recalls that she did go to [employer] today to get some soup. She has been feeling sick for several days. Apparently she has been having a lot of watery diarrhea. Also some cough. No chest pain. She has chronic headaches, not changed from normal lately. No sore throat. No abdominal pain. No vomiting. She has had frequent watery diarrhea, possibly 10 stools yesterday. She does not recall any blood or mucus. She thinks urination has been normal. She does not take any blood thinners but does not remember her medication list. She has a history of alcoholism. When discussing alcohol she is initially quite vague. Nurses say that she reported ?some? alcohol intake. When I talked to her about it she says that she really does not drink much, perhaps no more than 2 drinks per day. Last drink was Saturday, she thinks. She denies any history of alcohol withdrawal or DTs or alcohol withdrawal seizures. Related Data Home Medications ?Medication ?Instructions ?Recorded ?Confirmed aspirin 81 mg tablet,delayed 81 mg PO DAILY 10/27/23 02/02/24 release losartan 25 mg tablet 50 mg PO DAILY 10/27/23 02/03/24 sertraline 50 mg tablet 100 mg PO DAILY 10/27/23 02/03/24 albuterol sulfate 90 mcg/actuation 2 inh inhalation Q4H PRN 10/28/23 02/03/24 aerosol inhaler (Ventolin HFA) acamprosate 333 mg tablet,delayed 666 mg PO 3XD 02/03/24 02/03/24 release calcium carbonate (Oyster Shell 500 mg PO DAILY 02/03/24 02/03/24 Calcium) cyanocobalamin (vitamin B-12) 1,000 mcg PO DAILY 02/03/24 02/03/24 1,000 mcg tablet folic acid 1 mg tablet 1 mg PO DAILY 02/03/24 02/03/24 metoprolol tartrate 25 mg tablet 12.5 mg PO BID 02/03/24 02/03/24 multivitamin 1 tab PO DAILY 02/03/24 02/03/24 Previous Rx's ?Medication ?Instructions ?Recorded nicotine 14 mg/24 hr daily 1 patch topical Q24H #15 ea 11/07/23 transdermal patch thiamine mononitrate (vit B1) 100 100 mg PO DAILY #30 tabs 12/26/23 mg tablet (Vitamin B-1 (mononitrate)) loperamide 2 mg tablet 2 mg PO QID PRN loose stool #20 02/05/24 tabs magnesium oxide 400 mg PO TID #90 tabs 02/05/24 potassium chloride 20 mEq 40 meq (2 x 20 mEq) PO BID #180 02/05/24 tablet,extended release(part/cryst) tabs psyllium husk 3.4 gram/5.4 gram 1 tbsp PO BID #660 grams 02/05/24 oral powder (Metamucil) vancomycin 125 mg capsule 125 mg PO QID 12 days #48 caps 02/05/24 Allergies Allergy/AdvReac Type Severity Reaction Status Date / Time Penicillins Allergy Verified 12/22/23 15:43 [facility] Medical History Colon cancer ?C18.9 - Malignant neoplasm of colon, unspecified (ICD-10) Noncompliance by refusing intervention or support ?Z91.199 - Patient's noncompliance with other medical treatment and regimen due to unspecified reason (ICD-10) Alcohol dependence ?F10.20 - Alcohol dependence, uncomplicated (ICD-10) Alcoholic liver disease ?K70.9 - Alcoholic liver disease, unspecified (ICD-10) Alcohol dependence with acute alcoholic intoxication with complication ?F10.229 - Alcohol dependence with intoxication, unspecified (ICD-10) Multiple rib fractures ?S22.49XA - Multiple fractures of ribs, unspecified side, initial encounter for closed fracture (ICD-10) Elevated TSH ?R79.89 - Other specified abnormal findings of blood chemistry (ICD-10) Macrocytic anemia ?D53.9 - Nutritional anemia, unspecified (ICD-10) Macrocytosis ?D75.89 - Other specified diseases of blood and blood-forming organs (ICD-10) Syncope ?R55 - Syncope and collapse (ICD-10) Social History What is your current living situation?: I presently have a place to live Problems where you live: no known problems Problems where you live details: n/a In the past 12 months, utilities in danger of being shut off: no In past 12 months, lack of transportation kept you from medical appts, meetings, work, or getting things needed for daily living: no In the past 12 mos, have been you worried that your food would run out before you had money to buy more?: never true In the past 12 mos, the food you bought just didn't last and you didn't have money to buy more?: never true Highest level of school completed/degree received: Associate degree: occupational, technical, vocational program Smoking Status: Current every day smoker What tobacco products do you use: cigarettes Smoking packs per day: 0.25 Smoking cigarettes per day: 5.0 Years smoked: 20 Smoking pack-years: 5.00 Smoking quit date/years: <= 15 years ago Do you use any of these nicotine containing products: None Second hand tobacco smoke exposure: No How often do you have a drink containing alcohol: 2-4 times a month Alcohol type: hard liquor Alcohol type details: Rum and coke How many standard drinks containing alcohol do you have on a typical day: 1 or 2 How often do you have six or more drinks on one occasion: Never AUDIT-C Alcohol total score: 2 Non-prescribed substance use: denies use Caffeine: Yes (tea) How often does anyone, including family, friends and others, physically hurt you: never How often does anyone, including family, friends and others, insult or talk down to you: never How often does anyone, including family, friends and others, threaten you with harm: never How often does anyone, including family, friends and others, scream or curse at you: never service: No Exam Narrative: Exam Narrative: Primary Survey: A- patent. Speaking clearly. Phonation normal. No stridor. B- breathing easily. Lung sounds clear and equal. Oxygen saturation normal on room air C- no active bleeding. Blood pressure elevated about 190 systolic. Pulse 1 50s. Regular narrow complex on the monitor. (a flutter with 2-1, sinus tach, rapid AFib, possible SVT on the differential). Symmetric pulses and cap refill in 4 extremities. D- alert and oriented to person and place but not date. GCS 15. No focal deficits. Tremulous Constitutional: Appears well-developed and well-nourished. Alert. Awake and answering questions. Somewhat poor historian and vague. She is tachycardic. HENT: Head: No depressed skull fracture, Raccoon Eyes, Rodriguez's sign, or hemotympanum. Face normal. TMs normal. Scabs on the left parietal occipital scalp. Nose: Nose normal. Mouth/Throat: Oral mucosa is clear but dry. Not desiccated or crack. no trismus. Pharynx normal. Tonsils symmetric. No tonsillar enlargement, erythema, or exudate. Eyes: Conjunctivae normal. EOM normal. Pupils equal, round, and reactive to light. No scleral icterus. Neck: Normal range of motion. Neck supple. No tracheal deviation present. No JVD Cardiovascular: Tachycardic, regular rhythm. No gallop. No friction rub. No murmur heard. Symmetric radial artery pulses Pulmonary/Chest: Effort normal. No stridor. No respiratory distress. No wheezes. No rales. No rhonchi . No tenderness. Abdominal: Soft. Bowel sounds normal. No distension. No mass. No tenderness. No rebound. No guarding. No CVA tender Musculoskeletal: No midline C, T, L-spine tenderness. No step-off. She does have a left flank area of swelling. She says that she slipped and fell on the ice recently. RUE: Normal range of motion. No tenderness. No deformity LUE: Normal range of motion. No tenderness. No deformity RLE: Normal range of motion. No edema. No tenderness. No deformity LLE: Normal range of motion. No edema. No tenderness. No deformity Neurological: Alert and oriented to person, place, and initially not oriented to date. After she had been in the ER she remembered it was [place] Saturday.. Normal strength. CN II-VII intact. No sensory deficit. GCS eye subscore is 4. GCS verbal subscore is 5. GCS motor subscore is 6. Normal coordination Skin: Skin is warm and dry. No rash noted. No pallor. Normal capillary refill. Psychiatric: Normal mood. Normal affect. She does have a history of alcoholism. She says that she really has not been drinking much lately. She says she occasionally has ?2 drinks?. She she says that that does not mean for 6 drinks, but just to. Last drink was probably Saturday when she had 1 drink but she has not been drinking much this week because she has been sick. She is not suicidal. Const: Vital Signs, click to edit/add: Vital Signs - 24 hr 01/03/25 16:18 01/03/25 16:19 01/03/25 16:20 Temperature 97.7 F Pulse Rate 156 H 148 H Pulse Rate [Pulse Oximeter] 163 H Respiratory Rate 9 L 11 L 20 Blood Pressure 177/128 H Blood Pressure [Ri ght Upper Arm] 192/135 H Pulse Oximetry 98 98 98 [facility] 01/03/25 16:33 01/03/25 16:34 01/03/25 16:45 Temperature Pulse Rate 160 H 135 H 132 H Pulse Rate [Pulse Oximeter] Respiratory Rate 24 16 10 L Blood Pressure 140/121 H Blood Pressure [Ri ght Upper Arm] Pulse Oximetry 99 98 100 Oxygen Delivery Me od 01/03/25 16:47 01/03/25 17:00 01/03/25 17:02 Temperature Pulse Rate 127 H 99 96 Pulse Rate [Pulse Oximeter] Respiratory Rate 16 17 10 L Blood Pressure 177/118 H 162/111 H Blood Pressure [Ri ght Upper Arm] Pulse Oximetry 100 97 98 [facility] 01/03/25 17:03 01/03/25 17:15 01/03/25 17:17 Temperature Pulse Rate 96 95 89 Pulse Rate [Pulse Oximeter] Respiratory Rate 25 H 17 18 Blood Pressure 176/105 H Blood Pressure [Ri ght Upper Arm] Pulse Oximetry 100 98 98 Oxygen Delivery Me od 01/03/25 17:18 01/03/25 17:30 01/03/25 17:32 Temperature Pulse Rate 80 91 88 Pulse Rate [Pulse Oximeter] Respiratory Rate 26 H 21 15 Blood Pressure 163/102 H Blood Pressure [Ri ght Upper Arm] Pulse Oximetry 97 96 96 Oxygen Delivery Me od 01/03/25 17:45 01/03/25 17:46 01/03/25 17:47 Temperature Pulse Rate 91 90 84 Pulse Rate [Pulse Oximeter] Respiratory Rate 13 15 14 Blood Pressure 156/101 H Blood Pressure [Ri ght Upper Arm] Pulse Oximetry 94 96 97 Oxygen Delivery Ks thod 01/03/25 18:44 01/03/25 18:45 01/03/25 18:47 Temperature Pulse Rate 84 Pulse Rate [Pulse Oximeter] Respiratory Rate 19 10 L 18 Blood Pressure 182/106 H Blood Pressure [Ri ght Upper Arm] Pulse Oximetry 98 Oxygen Delivery Me thod 01/03/25 19:00 01/03/25 19:19 01/03/25 19:30 Temperature Pulse Rate 82 87 Pulse Rate [Pulse Oximeter] Respiratory Rate 18 22 22 Blood Pressure Blood Pressure [Ri ght Upper Arm] Pulse Oximetry 98 96 Oxygen Delivery Me thod Course Course ED Course: Recheck-. Portable chest x-ray is clear by my view. No CHF. No infiltrate. No pneumothorax. No obvious rib fractures Has received about half of the 1 L of saline bolus per Heart rate has come down from about 150 now to about 130. On the monitor there are now clear P waves and T-waves suggesting that this was sinus tach, not SVT or a flutter. Blood pressure coming down to about 160/110. Mental status seems to be clearing. She is more alert and now knows that at [facility] Saturday per additional history obtained, see HPI put Recheck-lactic elevated at 12. Will recheck lactic after 1 L saline. Lactic came back down to 8.9 after 1 L 2 L of saline infusing. Will start antibiotics for sepsis. Penicillin allergy. Also has history of C diff so will start vanco. Recheck-after 2 L of fluid heart rate down to about 90s, sinus rhythm on the monitor with frequent PVCs. Blood pressure still about 150/100. Mental status alert. She is much more conversant now than when she arrived. I wonder if she may have had an unwitnessed seizure that caused her to fall in the hallway of her apartment building. This would explain her significantly altered mental status on scene, initial door addition when she arrived here in the ER, and subsequent improvement. Would also explain her markedly elevated lactic acid level with fairly rapid clearance. Will recheck lactic acid again after she completes her 2 L. now that hemodynamically is more stable will be sending her to CT scan. Will obtain CT scan head and C-spine with history of fall to rule out trauma. Also CT chest/abdomen pelvis as part of septic workup. Patient standing at the bedside and able transition on a commode. When transitioning nurses noted formation of a new area of swelling and ecchymosis on the patient's right lower flank. This was not appreciated on her initial back exam when we rolled her in the bed. Suspected forming here in the ER. Patient says it might have happened when she fell on the ice a few days ago, but exact time is unclear Vital Signs Vital signs: Initial Vital Signs Pulse Rate 156 H 01/03/25 16:18 Respiratory Rate 9 L 01/03/25 16:18 Blood Pressure 177/128 H 01/03/25 16:18 Blood Pressure Mean 144 H 01/03/25 16:18 Pulse Oximetry 98 01/03/25 16:18 Vital Signs Pulse Rate 156 H 01/03/25 16:18 Respiratory Rate 9 L 01/03/25 16:18 Blood Pressure 177/128 H 01/03/25 16:18 Pulse Oximetry 98 01/03/25 16:18 Temperature 97.7 F 01/03/25 16:20 Pulse Rate 87 01/03/25 19:30 Respiratory Rate 22 01/03/25 19:30 Blood Pressure 182/106 H 01/03/25 18:47 Pulse Oximetry 96 01/03/25 19:30 Oxygen Delivery Method Room Air 01/03/25 16:20 Medications Administered Medications: Generic Name Dose Route Start Last Admin Trade Name Freq PRN Reason Stop Dose Admin Potassium Chloride 10 meq in 100 mls @ 100 mls/hr 01/03/25 17:45 01/03/25 19:56 Potassium Chloride IVPB 01/03/25 20:14 100 mls/hr Q90M ISRA[place] Administration Discontinued Medications Generic Name Dose Route Start Last Admin Trade Name Freq PRN Reason Stop Dose Admin Acetaminophen 1,000 mg 01/03/25 19:47 01/03/25 19:52 Acetaminophen 500 Mg Tablet PO 01/03/25 19:48 1,000 mg ONCE ONE Administration Sodium Chloride 1,000 mls @ 1,000 mls/hr 01/03/25 16:30 01/03/25 16:10 0.9 % Sodium Chloride 1000 Ml IV 01/03/25 17:29 1,000 mls/hr .Q1H IS[place] Administration Sodium Chloride 1,000 mls @ 1,000 mls/hr 01/03/25 16:45 01/03/25 17:49 0.9 % Sodium Chloride 1000 Ml IV 01/03/25 17:44 Infused .Q1H [place] Infusion Cefepime HCl 1 gm/ Sodium 100 mls @ 200 mls/hr 01/03/25 16:45 01/03/25 17:44 Chloride IVPB 01/03/25 16:46 200 mls/hr ONCE ONE Administration Vancomycin/PEG/NADA/Lysine/Water 2 gm in 400 mls @ 200 mls/hr 01/03/25 16:45 01/03/25 17:39 Vancomycin 2 Gm/400 Ml IVPB 01/03/25 18:44 200 mls/hr ONCE ONE Administration Protocol Medical Decision Making MDM Narrative Medical decision making narrative: 64-year-old female with a very complex presentation to the ER. She was found on the floor of the hallway of her apartment building today and 911 was called. When EMS arrived on scene she was disoriented and also belligerent, refusing transport. After a seen based phone call to us here in the ER, she was placed on a transport hold and brought in. 1. Neuro. Presented with altered mental status. No focal deficits. History of subdural hematoma requiring surgical evacuation. Head CT scan is obtained and fortunately is negative for any acute bleed. When she arrived she was definitely disoriented, but had no definite focal deficits. While here in the ER she actually had steady improvement in her sensorium. She also had a markedly elevated lactic acid level at 1st lab draw which improved here in the ER from 12 down to 3.5. I suspect she probably had an unwitnessed seizure. She has no history of seizure disorder. She does have a history of alcoholism, has abnormal LFTs in a pattern consistent with alcoholic hepatitis. However she denies any recent alcohol consumption. I suspect she may be having symptoms of withdrawal. Perhaps this was an alcohol withdrawal seizure 2. Trauma. CT scan of her C-spine is normal. CT chest and pelvis shows no other acute injury such as rib fracture, hemothorax, pneumothorax, internal bleeding, pelvic fracture. Clinical exam of her extremity showed no significant long bone trauma 3. Cardiac. Presented with marked elevation in blood pressure and marked tachycardia which improved here in the ER with IV fluids. Initial tachycardia differential included SVT, AFib, a flutter, sinus tach. After 2 L of IV fluid heart rate has come down and clearly a sinus rhythm. Most recent heart rate is in the 80s. The screening troponin is normal. She is not having any chest pain or shortness of breath. Was markedly hypertensive when she arrived by EMS and blood pressure is still elevated but coming down without specific antihypertensive treatment. No evidence for acute onset sudden pulmonary edema. 4. Pulmonary. No evidence for rib fracture, pneumothorax, pleural effusion, pneumonia, pulmonary edema on stat portable chest x-ray. Chest CT scan does show a small area of possible inflammation in the right upper lobe which may be inflammatory. She was started on antibiotics for sepsis. Will broaden antibiotics with Azithromycin to cover atypicals. No evidence for PE on chest CT. 5. Gi. Does report recent heavy watery diarrhea. History of C diff. She is not having any diarrhea here in the ER but C diff is ordered. CT scan does not show any evidence for colitis at this time. She does have abnormal LFTs. 221 AST to ALT elevation could fit with alcoholic hepatitis. Bilirubin 1.7. Lipase is normal. Initial lactic was markedly elevated at 12. No evidence for any acute ischemia on CT imaging. Lactic acid rapidly normally using here in the ER with IV fluids argues against ischemic colitis. 6. Renal/electrolytes. BUN and creatinine normal. She does have hypokalemia and hypomagnesemia. History of electrolyte disturbances in the past. 7. Heme. White count slightly low at 3.7. Hemoglobin normal. Platelet count normal. She is not thought to be on anticoagulants 8. Id. With elevated lactic and marked tachycardia presentation consider possible sepsis. Started on antibiotics for sepsis. After 1 L of IV fluid lactic is removed improved from 12-8. After 2 L improved from 12 down to 3.5. Heart rate is also improved from the 150s down to the 80s. She has never been hypotensive. COVID/RSV/influenza PCR negative. Chest CT suggest a possible small area of right upper lobe infiltrate. Would be covered by antibiotics already ordered. 9. Social. Patient is currently living alone. EMS reports that her part was generally well kept. Patient is very vague about her alcohol use but overall is denying heavy all call intake. I have strong suspicion that she has probably been abusing alcohol lately and is probably having alcohol withdrawal. She is tremulous, presented with tachycardia, had a potential seizure. LFTs are abnormal, potassium and magnesium are low, which can be seen in the setting of alcohol abuse. Needs to be monitored for alcohol withdrawal while in the hospital. Lab Data Labs: Lab Results 01/03/25 01/03/25 01/03/25 Range/Units 16:15 16:40 16:53 WBC 3.76 L (4.50-11.00) K/uL RBC 3.48 L (4.00-5.20) m/uL Hgb 12.5 (12.0-16.0) gm/dL Hct 37.0 (33.0-51.0) % MCV 106 H (80-100) fL MCH 36 H (26-34) pg MCHC 34 (32-36) gm/dL RDW Coeff of Katina 13.0 (11.5-15.5) % Plt Count 187 (140-440) K/uL Neut % (Auto) 70.4 (42.0-72.0) % Lymph % (Auto) 17.8 L (20-44) % [place] % (Auto) 10.4 (0.0-11.0) % Eos % (Auto) 0.0 (0.0-7.0) % Baso % (Auto) 1.1 (0.0-3.0) % Neut # (Auto) 2.60 (1.7-7.0) K/uL Lymph # (Auto) 0.70 L (0.90-2.90) K/uL [place] # (Auto) 0.40 (0.00-0.90) K/UL Eos # (Auto) 0.00 (0.00-0.50) K/uL Baso # (Auto) 0.00 (0.00-0.30) K/uL Abs Immat Gran (auto) 0.00 (0.00-0.30) K/uL Imm/Tot Granulo (auto) 0.3 % INR 0.92 (0.91-1.10) VBG pH 7.299 L (7.32-7.43) VBG pCO2 42 (40-50) mmHG VBG pO2 39.4 (25-47) mmHG VBG HCO3 21 (21-28) mmol/L Sodium 138 (135-149) mmol/L Potassium 3.0 L (3.6-5.1) mmol/L Chloride 94 L (96-114) mmol/L Carbon Dioxide 17 L (20-32) mmol/L Anion Gap 27 H (7-15) mEq/L BUN 11 (7-30) mg/dL Creatinine 0.6 (0.5-1.5) mg/dL Estimated Creat Clear 52.09 Estimated GFR 100 ml/min Glucose 184 H (60-115) mg/dL Lactate 12.0 H* 8.9 H* (0.5-1.9) mmol/L Calcium 9.4 (8.4-10.6) mg/dL Magnesium 0.8 L* (1.5-2.6) mg/dL Total Bilirubin 1.7 H (0.1-1.5) mg/dL AST 123 H (12-35) U/L ALT 60 H (4-35) U/L Alkaline Phosphatase 112 (40-150) U/L Total Creatine Kinase 112 (41-117) U/L Troponin I 0.03 (0.01-0.04) ng/mL NT-Pro-B Natriuret Pep 794 pg/mL Total Protein 8.8 H (6.0-8.3) g/dL Albumin 5.5 H (3.3-5.0) g/dL Lipase 296 (23-300) U/L Urine Color (Yellow) Urine Appearance (Clear) Urine pH (5.0-8.5) Ur Specific [place] (1.000-1.030) Urine Protein (Negative) Urine Glucose (UA) (Negative) Urine Ketones (Negative) Urine Blood (Negative) Urine Nitrite (Negative) Urine Bilirubin (Negative) Urine Urobilinogen (0.2-1.0) Ur Leukocyte Esterase (Negative) Urine RBC (0-2) Urine WBC (0-5) Ur Squamous Epith Cells (None-Few) Urine Bacteria (None) Ethyl Alcohol < 0.00 L (0.01-0.03) % SARS-CoV-2 (PCR) Negative SARS-CoV-2 (Negative) Influenza Type A (PCR) Negative PCR FLU A (Negative) Influenza Type B (PCR) Negative PCR FLU B (Negative) RSV (PCR) Negative PCR RSV (Negative) 01/03/25 01/03/25 Range/Units 17:15 18:35 WBC (4.50-11.00) K/uL RBC (4.00-5.20) m/uL Hgb (12.0-16.0) gm/dL Hct (33.0-51.0) % MCV (80-100) fL MCH (26-34) pg MCHC (32-36) gm/dL RDW Coeff of Katina (11.5-15.5) % Plt Count (140-440) K/uL Neut % (Auto) (42.0-72.0) % Lymph % (Auto) (20-44) % [place] % (Auto) (0.0-11.0) % Eos % (Auto) (0.0-7.0) % Baso % (Auto) (0.0-3.0) % Neut # (Auto) (1.7-7.0) K/uL Lymph # (Auto) (0.90-2.90) K/uL [place] # (Auto) (0.00-0.90) K/UL Eos # (Auto) (0.00-0.50) K/uL Baso # (Auto) (0.00-0.30) K/uL Abs Immat Gran (auto) (0.00-0.30) K/uL Imm/Tot Granulo (auto) % INR (0.91-1.10) VBG pH (7.32-7.43) VBG pCO2 (40-50) mmHG VBG pO2 (25-47) mmHG VBG HCO3 (21-28) mmol/L Sodium (135-149) mmol/L Potassium (3.6-5.1) mmol/L Chloride (96-114) mmol/L Carbon Dioxide (20-32) mmol/L Anion Gap (7-15) mEq/L BUN (7-30) mg/dL Creatinine (0.5-1.5) mg/dL Estimated Creat Clear Estimated GFR ml/min Glucose (60-115) mg/dL Lactate 3.5 H (0.5-1.9) mmol/L Calcium (8.4-10.6) mg/dL Magnesium (1.5-2.6) mg/dL Total Bilirubin (0.1-1.5) mg/dL AST (12-35) U/L ALT (4-35) U/L Alkaline Phosphatase (40-150) U/L Total Creatine Kinase (41-117) U/L Troponin I (0.01-0.04) ng/mL NT-Pro-B Natriuret Pep pg/mL Total Protein (6.0-8.3) g/dL Albumin (3.3-5.0) g/dL Lipase (23-300) U/L Urine Color Yellow (Yellow) Urine Appearance Clear (Clear) Urine pH 6.0 (5.0-8.5) Ur Specific [place] 1.015 (1.000-1.030) Urine Protein 2+ A (Negative) Urine Glucose (UA) Trace A (Negative) Urine Ketones Negative (Negative) Urine Blood 1+ A (Negative) Urine Nitrite Negative (Negative) Urine Bilirubin Negative (Negative) Urine Urobilinogen 0.2 (0.2-1.0) Ur Leukocyte Esterase Negative (Negative) Urine RBC 10-25 A (0-2) Urine WBC 0-2 (0-5) Ur Squamous Epith Cells Few (None-Few) Urine Bacteria Moderate A (None) Ethyl Alcohol (0.01-0.03) % SARS-CoV-2 (PCR) (Negative) Influenza Type A (PCR) (Negative) Influenza Type B (PCR) (Negative) RSV (PCR) (Negative) Imaging Data Chest x-ray: Attestation: I have reviewed the pertinent imaging results. My impression: No acute infiltrate. No CHF. Radiologist's impression: IMPRESSION: No acute cardiopulmonary process or acute traumatic injury. CT scan - head: Attestation: I have reviewed the pertinent imaging results. My impression: No acute bleed Radiologist's impression: IMPRESSION: 1. No acute intracranial abnormality. Resolution of the right hemispheric subdural hematoma noted on the 03/06/2024 study. 2. Small right frontal scalp contusion. 3. 5 mm rightward midline shift may be on a congenital basis as there is no space-occupying lesion to account for the shift. CT T spine: Attestation: I have reviewed the pertinent imaging results. Radiologist's impression: Impression: 1. No convincing radiographic evidence of acute osseous injury. 2. Scattered degenerative changes of the cervical spine. CT Chest/Ab/Pelvis: Attestation: I have reviewed the pertinent imaging results. My impression: No acute PE. No acute infiltrate. No definite free air or intra-abdominal abscess. Radiologist's impression: Impression: 1. No acute fracture or malalignment. Multiple remote fractures as detailed above. 2. No appreciable pulmonary embolism. 3. Subcentimeter ground-glass opacity in the right upper lobe, likely infectious/inflammatory. 4. Additional incidental findings as detailed above. ECG Data Attestation: I personally reviewed and interpreted this ECG as follows: Interpretation: Narrow complex regular tachycardia with a rate of 156. Could be SVT versus atrial flutter with 2:1 conduction. Possible flutter waves noted in lead V4, V5, V6. Rate: 156 NM: Undetermined QRS axis: Normal QRS axis. ST segment/T wave: No ST segment elevation or depression. I think there is artifact (or superimposed flutter waves) leading to ST and T-wave changes in the lateral leads. QTc: 431 EKG 2. Normal sinus rhythm Rate: 82 NM: 158 QRS axis: Normal axis ST segment/T wave: No ST segment elevation or depression QTc: 464 Critical Care Time Critical Care Time Critical Care Time: Yes Attestation: The patient required my highest level preparedness to intervene emergently and I personally spent this critical care time directly and personally managing the patient. This critical care time included: Obtaining a history; Examining the patient; Pulse oximetry; Ordering and reviewing of studies; Arranging urgent treatment with development of a management plan; Evaluation of patients response to treatment; Frequent reassessment discussions with other providers. This critical care time was performed to assess and manage the high probability of imminent life-threatening deterioration that could result in multiorgan failure. It was exclusive of separate billable procedures and treating other patients and teaching time. Total Critical Care Time in Minutes: 45 Discharge Plan Discharge Clinical Impression: Acute alteration in mental status, Acute hypokalemia, Hypomagnesemia, Fall, Diarrhea, Hypertension Prescriptions: No Action thiamine mononitrate (vit B1) [Vitamin B-1 (mononitrate)] 100 mg Tablet 100 mg PO DAILY Qty: 30 0RF folic acid 1 mg tablet 1 mg PO DAILY cyanocobalamin (vitamin B-12) 1,000 mcg tablet 1,000 mcg PO DAILY acamprosate 333 mg tablet,delayed release (DR/EC) 666 mg PO 3XD multivitamin Tablet 1 tab PO DAILY metoprolol tartrate 25 mg Tablet 12.5 mg PO BID calcium carbonate [Oyster Shell Calcium] 500 mg calcium (1,250 mg) tablet 500 mg PO DAILY Metamucil 3.4 gram/5.4 gram powder 1 tbsp PO BID Qty: 660 0RF Rx Instructions: mix into at least 8 oz of water or juice before administering magnesium oxide 400 mg magnesium tablet 400 mg PO TID Qty: 90 0RF vancomycin 125 mg Capsule 125 mg PO QID 12 Days Qty: 48 0RF potassium chloride 20 mEq tablet,ER particles/crystals 40 meq PO BID Qty: 180 3RF loperamide 2 mg tablet 2 mg PO QID PRN (Reason: loose stool) Qty: 20 0RF aspirin 81 mg tablet,delayed release (DR/EC) 81 mg PO DAILY sertraline 50 mg tablet 100 mg PO DAILY losartan 25 mg tablet 50 mg PO DAILY albuterol sulfate [Ventolin HFA] 90 mcg/actuation HFA aerosol inhaler 2 inh inhalation Q4H PRN nicotine 14 mg/24 hr Patch 24 Hour 1 patch topical Q24H Qty: 15 0RF Follow Up/Referrals: LIDIA CAMPOS DO [Primary Care Provider] -
--- NOTE | 2025-01-03 16:20 | CRLHL7_ITS ---
For Patients: As a result of the Cures Act, medical imaging exams and procedure reports are released immediately into your electronic medical record. You may view this report before your referring provider. If you have questions, please contact your health care provider. INDICATION: : Hypertension, fall, tachycardia COMPARISON: Chest radiograph on December 22, 2023 TECHNIQUE: One view(s) of the chest FINDINGS: The cardiomediastinal silhouette and pulmonary vasculature are unremarkable. There is no focal airspace consolidation, pleural effusion, or pneumothorax. Likely nipple shadows projecting over the left lung base and right upper abdomen No acute fracture or malalignment. Remote, healed bilateral rib fractures. IMPRESSION: No acute cardiopulmonary process or acute traumatic injury. Dictated by Олег Helton MD @ 01/03/2025 4:56:06 PM (Electronically Signed)
[2025-01-03 16:34] LABS: HCO3 VBG 21 mmol/L (21-28); PCO2 VBG 42 mmHG (40-50); PO2 VBG 39.4 mmHG (25-47); pH VBG 7.299 (7.32-7.43)
[2025-01-03 16:35] LABS: Basophils Percent Auto 1.1 % (0.0-3.0); Hemoglobin* 12.5 gm/dL (12.0-16.0); Immature Granulocytes Pct Auto 0.3 %; Lymphocytes Percent Auto 17.8 % (20-44); Mean Corpuscular HGB Conc 34 gm/dL (32-36); Mean Corpuscular Hemoglobin 36 pg (26-34); Mean Corpuscular Volume 106 fL (80-100); Monocytes Percent Auto 10.4 % (0.0-11.0); Neutrophils Percent Auto 70.4 % (42.0-72.0); Platelet Count* 187 K/uL (140-440); Red Blood Count 3.48 m/uL (4.00-5.20); White Blood Count* 3.76 K/uL (4.50-11.00)
[2025-01-03 16:37] LABS: Slide Review Reflex No
--- OUTSIDE RECORDS SUMMARY | 2025-01-03 16:50 | XMS_ITS | Continuity of Care Document ---
Author Organization [facility] Address [address] [address] [place] [address] Phone Care Team Providers Care Automobile Body Repairer Helper Name Role Phone Arron Harper MD Unavailable [...] Diagnoses Date Provider Providers Copied on Encounter [facility], [address] [address], [place], [place], [id number], [place] tel:[phone] [facility] No Information 4 Leroy Heller. [address] [place] [address], [facility] [address], [place], [place], [id number] , [place]. tel:[phone] Referring Provider: Arron Crespo, [address] [place] [address] [address], [place], [address] . tel:[phone] Init Inpt Cons New/est Mod-hi [facility], [address] [address], [place], [place], [address], [place] tel:[phone] [facility] No Information 4 Estevan Jaffe. [address] [facility], [facility] [address], [place], [place], [address] , [place]. tel: [phone] Referring Provider: Lesly Sheikh MD, [address] [place] [address], [place], [address]. tel:[phone] [facility], [address] [address], [place], [place], [address], [place] tel:[phone] [facility] No Information 3 Fili Hernandez. [address] [facility], [facility] [address], [place], [place], [address] , [place]. tel: [phone] Referring Provider: Mary Penn NP, [address] [address], [place], [address] . tel:[phone] [facility], [address] [address], [place], [place], [address], [place] tel:[phone] [facility] No Information 3 Chung Salomon. [address] [facility], [facility] [address], [place], [place], [address] , [place]. tel: [phone] Referring Provider: Aime Romano, [address] [facility] [address], [place], [address] . tel:[phone] Init Inpt Cons New/est Mod-hi [facility], [address] [address], [place], [place], [address], [place] tel:[phone] [facility] No Information 3 Neri Carrillo. [address] [facility], [facility] [address], [place], [place], [address] , [place]. tel: [phone] Referring Provider: Marissa Penny, [address] [place] [address] [address], [place], [address]. tel:[phone] Init Inpt Cons New/estab Mod 5 [facility], [address] [address], [place], [place], [address], [place] tel:[phone] [facility] No Information 3 Austen Marks. [address] [facility], [address], [place], [place], [address] , [place]. tel:[phone] Referring Provider: Alta Delacruz MD S, [address], [place], [address]. tel:[phone] Family History Family Member Type Diagnosis Age At Onset No Information Payers Payer name Insurance type Covered libertarian ID Whitley cade(s) [place] [id number] Social History Type Description Quantity Date Captured [...]
--- OUTSIDE RECORDS SUMMARY | 2025-01-03 16:50 | XMS_ITS | Clinical Summary ---
Author Organization [facility] Address [place], [place] [address] Care Team Providers Care Correctional Casework Specialist Name Role Phone Alexi Keating RN Unavailable [phone] Kim Gallo MD Unavailable Pcp, No Primary [...] type, unspecified whether angina present, unspecified whether [place] or transplanted heart TAKE 1/2 TABLET(12.5 MG) [...] 07/01/2034 07/01/2024, Medical Devices Implanted Type Area Rn Hemodialysis Device Identifier Shelf Expiration Date Model / Serial / Lot Screw Neuro 4mm Matrixneuro Slf Drill Titnm - [id number] Implanted:Qty: 3 on 04/02/2024 by Juan Francisco Santizo MBChB at [facility] Right: Cranium J And J Depuy CMF [id number] 4.01 / / Guru Hole Cover Implanted:Qty: 1 on 04/02/2024 by Juan Francisco Santizo MBChB at [facility] Right: Cranium [id number] / / Procedures Procedure [...] Procedure: Colonoscopy Proceduralist: Arron Harper MD - [facility] Indications/Pre-Op Diagnosis: History of advanced adenomatous polyps, 1 of which in the ascending colon containedcancer; patient is scheduled for right hemicolectomy tomorrow Medications: MAC Procedure Description: The patient had risks, benefits and alternatives explained to andgave informed consent. The patient had a stable cardiopulmonary status and judged an adequate candidate for sedation. The endoscope -[id number] was passed through the anus andadvanced to [...] 03/23/2024 03/23/[address] [place] [id number] [facility] [address] [place] [id number] [facility] Advance Directives * Full Code (Latest Code [...] Preferences, Provider to review later Care Teams Correctional Casework Specialist Relationship Specialty Start Date End Date Pcp, No . PCP - General 12/31/23 Alexi Keating, RN [address] [address] Nurse Navigator - Oncology Registered Nurse 10/08/23 Kim Gallo MD [address] [address] Surgery - Colon and Rectal 10/08/23
[2025-01-03 16:56] LABS: Albumin* 5.5 g/dL (3.3-5.0); Chloride* 94 mmol/L (96-114); Sodium* 138 mmol/L (135-149)
[2025-01-03 16:58] LABS: Lipase* 296 U/L (23-300)
[2025-01-03 16:59] LABS: Alkaline Phosphatase* 112 U/L (40-150); Aspartate Amino Transferase* 123 U/L (12-35); Bilirubin Total* 1.7 mg/dL (0.1-1.5); Blood Urea Nitrogen* 11 mg/dL (7-30); Carbon Dioxide* 17 mmol/L (20-32); Creatinine* 0.6 mg/dL (0.5-1.5); Est. Creatinine Clearance* 52.09; Estimated Glomerular Filt Rate 100 ml/min; Glucose* 184 mg/dL (60-115); Total Protein* 8.8 g/dL (6.0-8.3)
[2025-01-03 17:00] LABS: Calcium* 9.4 mg/dL (8.4-10.6)
[2025-01-03 17:05] LABS: Lactate* 8.9 mmol/L (0.5-1.9)
[2025-01-03 17:06] LABS: Alanine Aminotransferase* 60 U/L (4-35)
[2025-01-03 17:09] LABS: Anion Gap 27 mEq/L (7-15); NT Pro B Type NatriureticPept* 794 pg/mL
[2025-01-03 17:10] LABS: Magnesium* 0.8 mg/dL (1.5-2.6)
[2025-01-03 17:11] LABS: Troponin I* 0.03 ng/mL (0.01-0.04)
[2025-01-03 17:12] LABS: INR 0.92 (0.91-1.10); Prothrombin Time 12.9 Seconds
[2025-01-03 17:14] LABS: Ethanol* < 0.00 % (0.01-0.03)
[2025-01-03 17:15] LABS: Creatine Kinase* 112 U/L (41-117)
[2025-01-03 17:21] LABS: Appearance Urine Clear (Clear); Bilirubin Urine Negative (Negative); Blood Urine 1+ (Negative); Color Urine Yellow (Yellow); Glucose Urine Trace (Negative); Ketones Urine Negative (Negative); Leukocyte Esterase Urine Negative (Negative); Nitrite Urine Negative (Negative); Protein Urine 2+ (Negative); Specific Gravity Urine 1.015 (1.000-1.030); Urobilinogen Urine 0.2 (0.2-1.0)
--- NOTE | 2025-01-03 17:25 | CRLHL7_ITS ---
For Patients: As a result of the Century Cures Act, medical imaging exams and procedure reports are released immediately into your electronic medical record. You may view this report before your referring provider. If you have questions, please contact your health care provider. INDICATION: Fall, altered mental status TECHNIQUE: CT of the head without contrast. Coronal and sagittal reformats. Bone and soft tissue algorithms. COMPARISON: CT 03/06/2024 FINDINGS: No acute intracranial hemorrhage or extra-axial collection. No evidence of acute cortical infarction. Chronic right frontal alma hole. Resolution of the right hemispheric subdural hematoma noted on the 03/06/2024 study. No mass effect or midline shift. Mild generalized parenchymal volume loss. Mild regions of decreased attenuation within the periventricular and subcortical white matter of both cerebral hemispheres most likely reflect chronic microvascular ischemic disease and age related change in this patient. Vascular calcifications within the carotid siphons. Orbital contents are normal. No calvarial fractures. No lytic or sclerotic osseous lesions within the calvarium or skull base. Scalp and other imaged soft tissue structures are normal. Mastoid air cells are clear. Mild polypoid mucosal thickening in the right ethmoid air cells and mild mucosal thickening in the maxillary sinuses. IMPRESSION: 1. No acute intracranial abnormality. Resolution of the right hemispheric subdural hematoma noted on the 03/06/2024 study. 2. Small right frontal scalp contusion. 3. 5 mm rightward midline shift may be on a congenital basis as there is no space-occupying lesion to account for the shift. Please note that all CT scans at this facility use dose modulation, iterative reconstruction, and/or weight-based dosing when appropriate to reduce radiation dose to as low as reasonably achievable. Dictated by Rambo Carr MD @ 01/03/2025 6:43:14 PM (Electronically Signed)
--- NOTE | 2025-01-03 17:25 | CRLHL7_ITS ---
For Patients: As a result of the Century Cures Act, medical imaging exams and procedure reports are released immediately into your electronic medical record. You may view this report before your referring provider. If you have questions, please contact your health care provider. Indication: Fall, neck pain Technique: Noncontrast axial CT of the cervical spine with coronal and sagittal reformats are provided. Comparison: CT 12/22/2023 Findings: There is cervical kyphosis. Stable grade 1 anterolisthesis at C3-4 and C4-5 and C7-T1. Severe interspace narrowing at C5-6 and moderate interspace narrowing at C6-7. The craniocervical junction is unremarkable. Advanced degenerative changes at the anterior atlantoaxial articulation. C1-2: No significant spinal canal stenosis. C2-3: Moderate facet arthrosis. No significant spinal canal stenosis or neural foramen narrowing. C3-4: Grade 1 anterolisthesis. Advanced right facet arthrosis. No significant spinal canal stenosis or neural foraminal narrowing. C4-5: Grade 1 anterolisthesis and uncovering of the disc. Mild spinal canal narrowing. Advanced left facet arthrosis. No significant neural foramen narrowing. C5-6: Disc osteophyte complex results in mild-moderate spinal canal stenosis. Uncovertebral joint hypertrophy results in moderate right and mild left neural foraminal stenosis. C6-7: Disc osteophyte complex and uncovertebral joint hypertrophy. Severe left and moderate right neural foraminal stenosis. Mild spinal canal stenosis. Advanced right facet arthrosis. C7-T1: No significant spinal canal stenosis or neural foraminal narrowing. The lung apices are clear. Impression: 1. No convincing radiographic evidence of acute osseous injury. 2. Scattered degenerative changes of the cervical spine. Please note that all CT scans at this facility use dose modulation, iterative reconstruction, and/or weight-based dosing when appropriate to reduce radiation dose to as low as reasonably achievable. Dictated by Rambo Carr MD @ 01/03/2025 6:47:13 PM (Electronically Signed)
--- NOTE | 2025-01-03 17:25 | CRLHL7_ITS ---
For Patients: As a result of the Century Cures Act, medical imaging exams and procedure reports are released immediately into your electronic medical record. You may view this report before your referring provider. If you have questions, please contact your health care provider. Indication: Fall, weakness, tachycardia, lactic acidosis, possible PE, history of colon cancer Technique: CT chest/abdomen/pelvis with IV contrast 63 mL Isovue 370 Comparison: CT abdomen/pelvis on December 22, 2023 Findings: CHEST Airway: Normal tracheobronchial tree. Lungs: No focal airspace consolidation, pleural effusion, or pneumothorax. Subcentimeter ground-glass opacity in the right upper lobe, likely infectious/inflammatory. Unchanged basilar linear scarring. Pleura: No pleural effusion. No pneumothorax. Lymph nodes: No thoracic adenopathy. Mediastinum: No pneumomediastinum. No mass. Heart and great vessels: No pericardial effusion. Normal cardiac chamber size. Scattered atherosclerotic plaques. No aortic aneurysm. Normal caliber main pulmonary artery. No appreciable pulmonary embolism; however, the examination is not protocol specifically for the evaluation of the pulmonary arteries. Chest wall: Normal. No masses. ABDOMEN AND PELVIS Liver: Severe hepatic steatosis. No focal hepatic lesions. Gallbladder and bile ducts: Normal gallbladder. No bile duct dilation. Pancreas: Redemonstration of 2 homogeneously hypo enhancing lesions in the posterior aspect of the pancreatic head and uncinate process, similar compared to prior examination, likely side branch IPMNs. Spleen: Normal. Adrenal glands: Normal. Kidneys: Normal parenchyma. No cyst or solid mass. No calculi. No urinary tract dilation. Urinary bladder: Normal. Pelvis: No cyst or mass. Vessels: Atherosclerotic vascular calcifications. No aortic aneurysm. Separate origins of the common hepatic and splenic artery from the upper abdominal aorta. Mesenteric vasculature is widely patent. Portal venous system is patent. Bowel: No evidence of bowel obstruction or inflammation. Postsurgical changes of right colon resection. Few scattered colonic diverticuli without diverticulitis. Lymph nodes: No adenopathy. Peritoneum: No ascites. Abdominal wall: Fat containing left inguinal hernia. Small fat containing umbilical hernia. 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 Remote right posterior 12th rib fracture with callus formation. Old healed left rib fractures with solid heterotopic ossification between the 8th and 9th lateral left ribs. Remote fracture of the right femoral greater trochanter with nonunion. Remote fractures of the right transverse process of the L1, L2, and L3 vertebral bodies. No acute, displaced fracture or malalignment. Impression: 1. No acute fracture or malalignment. Multiple remote fractures as detailed above. 2. No appreciable pulmonary embolism. 3. Subcentimeter ground-glass opacity in the right upper lobe, likely infectious/inflammatory. 4. Additional incidental findings as detailed above. Please note that all CT scans at this facility use dose modulation, iterative reconstruction, and/or weight-based dosing when appropriate to reduce radiation dose to as low as reasonably achievable. Dictated by Олег Helton MD @ 01/03/2025 7:07:14 PM (Electronically Signed)
[2025-01-03 17:39] LABS: PCR FLU A Negative PCR FLU A (Negative); PCR FLU B Negative PCR FLU B (Negative); PCR RSV Negative PCR RSV (Negative); SARS PCR* Negative SARS-CoV-2 (Negative)
[2025-01-03] MEDS: VANCOMYCIN 2 GM/400 ML 2 GM/400 ML PIGGYBACK IVPB (17:39)
[2025-01-03] MEDS: CEFEPIME HCL 1 GM in 0.9 % SODIUM CHLORIDE Mini-bag 100 ML IVPB (17:44)
[2025-01-03 17:52] LABS: Bacteria Urine Moderate; Squamous Epithelial Cell Urine Few (None-Few); WBC Urine 0-2 (0-5)
[2025-01-03 18:44] LABS: Lactate Sepsis 2 Hour 3.5 mmol/L (0.5-1.9)
[2025-01-03] MEDS: POTASSIUM CHLORIDE 10 MEQ/100 ML PIGGYBACK 100 MEQ IVPB ×2 (19:00→19:56)
[2025-01-03] MEDS: ACETAMINOPHEN 500 MG TABLET 1000 MG PO (19:52)
[2025-01-03] MEDS: MAGNESIUM IV 2 GM/50 ML PIGGYBACK IVPB (20:31)
[2025-01-03] MEDS: AZITHROMYCIN 500 MG in 0.9 % SODIUM CHLORIDE 250 ml 250 ML 255 MG IVPB (21:17)
--- NOTE | 2025-01-03 22:13 | PM.IMHP1 ---
Hospitalist- H&P: HPI History of Present Illness Date Seen: 01/03/25 Chief complaint: Found down with altered mental status Narrative: Simona Velázquez is a 64 year old woman who lives alone was found down on the floor of the hallway of her apartment building by neighbor earlier today and called 911. Reportedly she was disoriented and knew her name only. Upon arrival patient initially refused EMS transport to the emergency department. Having determined that patient did not have medical decision-making capacity, she was placed on a transport hold and brought to the emergency department for further assessment. When patient 1st arrived at the [facility] Emergency Department she was still somewhat confused. Even so she was very consistent in her stating that she did not recall anything that transpired which culminated in her arriving in the emergency department. As best as she can recall she was at the store earlier today to buy some soup. Beyond that she does not recall any details how she arrived here in the emergency department. Does not recall being on the floor. Does not recall tripping or falling. As best as she can remember she had been doing well the last several days. She does note that she developed diarrhea for the past 3-4 days. Denies blood loss in association with this. Had 4-5 episodes daily. Onset was somewhat sudden and with little warning to get to the bathroom in time. Denies fevers, rigors, diaphoresis. Denies abdominal pain, nausea, vomiting. Denies dyspnea, chest heaviness, pressure, tightness, or pain. Denies orthostasis. Claims to have been eating well and drinking well. No urinary tract symptoms. Did have dry hacky cough for the past week. Still smoking about a quarter pack cigarettes daily. Acknowledges drinking 1 rum and Coke drink 2 or 3 times per week. Claims the last time she had such a drink was this past Saturday 2 days ago. Review of Systems Status of ROS: Reports: 6 or more systems reviewed and unremarkable except as noted in History and below Narrative: Last time she was treated for C diff enterocolitis was in May or June of 2024. Shortly thereafter she was found to have colon cancer for which she underwent a hemicolectomy in June 2024. Denies recent fevers, rigors, diaphoresis. Aside from the incident today she has not had any trauma, injury, or travel. Smoking about 1/4 pack cigarettes daily. Drinking 1 rum and Coke drink 2-3 times per week. Designates her son, Faizan, as the individual to make healthcare decisions on her behalf should she be unable to do so. Requests full resuscitation efforts in the event of cardiopulmonary demise. [facility] Medical History (Updated 01/03/25 @ 22:39 by Saud Bolivar MD) Colon cancer ?C18.9 - Malignant neoplasm of colon, unspecified (ICD-10) Noncompliance by refusing intervention or support ?Z91.199 - Patient's noncompliance with other medical treatment and regimen due to unspecified reason (ICD-10) Alcohol dependence ?F10.20 - Alcohol dependence, uncomplicated (ICD-10) Alcoholic liver disease ?K70.9 - Alcoholic liver disease, unspecified (ICD-10) Alcohol dependence with acute alcoholic intoxication with complication ?F10.229 - Alcohol dependence with intoxication, unspecified (ICD-10) Multiple rib fractures ?S22.49XA - Multiple fractures of ribs, unspecified side, initial encounter for closed fracture (ICD-10) Elevated TSH ?R79.89 - Other specified abnormal findings of blood chemistry (ICD-10) Macrocytic anemia ?D53.9 - Nutritional anemia, unspecified (ICD-10) Macrocytosis ?D75.89 - Other specified diseases of blood and blood-forming organs (ICD-10) Syncope ?R55 - Syncope and collapse (ICD-10) Social History What is your current living situation?: I presently have a place to live Problems where you live: no known problems Problems where you live details: n/a In the past 12 months, utilities in danger of being shut off: no In past 12 months, lack of transportation kept you from medical appts, meetings, work, or getting things needed for daily living: no In the past 12 mos, have been you worried that your food would run out before you had money to buy more?: never true In the past 12 mos, the food you bought just didn't last and you didn't have money to buy more?: never true Highest level of school completed/degree received: Associate degree: occupational, technical, vocational program Smoking Status: Current every day smoker What tobacco products do you use: cigarettes Smoking packs per day: 0.25 Smoking cigarettes per day: 5.0 Years smoked: 20 Smoking pack-years: 5.00 Smoking quit date/years: <= 15 years ago Do you use any of these nicotine containing products: None Second hand tobacco smoke exposure: No How often do you have a drink containing alcohol: 2-4 times a month Alcohol type: hard liquor Alcohol type details: Rum and coke How many standard drinks containing alcohol do you have on a typical day: 1 or 2 How often do you have six or more drinks on one occasion: Never AUDIT-C Alcohol total score: 2 Non-prescribed substance use: denies use Caffeine: Yes (tea) How often does anyone, including family, friends and others, physically hurt you: never How often does anyone, including family, friends and others, insult or talk down to you: never How often does anyone, including family, friends and others, threaten you with harm: never How often does anyone, including family, friends and others, scream or curse at you: never service: No Meds Home Medications and Allergies Home Medications ?Medication ?Instructions ?Recorded ?Confirmed ?Type aspirin 81 mg tablet,delayed 81 mg PO DAILY 10/27/23 02/02/24 History release losartan 25 mg tablet 50 mg PO DAILY 10/27/23 02/03/24 History sertraline 50 mg tablet 100 mg PO DAILY 10/27/23 02/03/24 History albuterol sulfate 90 mcg/actuation 2 inh inhalation Q4H PRN 10/28/23 02/03/24 History aerosol inhaler (Ventolin HFA) acamprosate 333 mg tablet,delayed 666 mg PO 3XD 02/03/24 02/03/24 History release calcium carbonate (Oyster Shell 500 mg PO DAILY 02/03/24 02/03/24 History Calcium) cyanocobalamin (vitamin B-12) 1,000 mcg PO DAILY 02/03/24 02/03/24 History 1,000 mcg tablet folic acid 1 mg tablet 1 mg PO DAILY 02/03/24 02/03/24 History metoprolol tartrate 25 mg tablet 12.5 mg PO BID 02/03/24 02/03/24 History multivitamin 1 tab PO DAILY 02/03/24 02/03/24 History Allergies Allergy/AdvReac Type Severity Reaction Status Date / Time Penicillins Allergy Verified 12/22/23 15:43 Exam Narrative: Exam Narrative: I examine her 1st in the emergency department and then on the hospital floor. She appears comfortable in no acute distress. Vision and hearing are adequate. Friendly, articulate, cooperative. Alert and oriented x3. No recollection of how she ended up on floor in the hallway of her apartment building and very little recollection of how she ended up here in the emergency department. Initially presented with tachycardia with heart rate around 160 and with IV fluids her heart rate normalized into the 80s with sinus rhythm. External auditory canals are clear tympanic membranes normal. Midline nasal septum normal nasal mucosa. Dry buccal mucosa. No blood or lesions in the mouth. Dentition in fair repair. Mallampati class 3-4 airway. Conjugate gaze. Pupils equally round and reactive to light and accommodation. Extraocular muscles intact. No icterus or conjunctival injection. Some bruising on her flank otherwise no other areas of ecchymosis and no skin abrasions or tears or wounds. No jaundice or cyanosis. No petechiae. Lungs are clear to auscultation. No wheezing, rhonchi, rales. Chest wall excursions are full. No CVA tenderness. Heart tones with regular rhythm, normal S1-S2, without murmur, gallop, or rub. PMI not laterally displaced. Abdomen with active bowel sounds, soft, nontender. No rebound or guarding. Extremities without edema. Moves all 4 extremities. No focal motor neurologic deficits. Cranial nerves 3-12 grossly normal. Creatine kinase value is normal. Const: Vital Signs, click to edit/add: Vital Signs - 24 hr 01/03/25 16:18 01/03/25 16:19 01/03/25 16:20 Temperature 97.7 F Pulse Rate 156 H 148 H Pulse Rate [Pulse Oximeter] 163 H Respiratory Rate 9 L 11 L 20 Blood Pressure 177/128 H Blood Pressure [Ri ght Arm] Blood Pressure [Ri ght Upper Arm] 192/135 H Pulse Oximetry 98 98 98 Oxygen Delivery Me thod Room Air 01/03/25 16:33 01/03/25 16:34 01/03/25 16:45 Temperature Pulse Rate 160 H 135 H 132 H Pulse Rate [Pulse Oximeter] Respiratory Rate 24 16 10 L Blood Pressure 140/121 H Blood Pressure [Ri ght Arm] Blood Pressure [Ri ght Upper Arm] Pulse Oximetry 99 98 100 Oxygen Delivery Me thod 01/03/25 16:47 01/03/25 17:00 01/03/25 17:02 Temperature Pulse Rate 127 H 99 96 Pulse Rate [Pulse Oximeter] Respiratory Rate 16 17 10 L Blood Pressure 177/118 H 162/111 H Blood Pressure [Ri ght Arm] Blood Pressure [Ri ght Upper Arm] Pulse Oximetry 100 97 98 Oxygen Delivery Me thod 01/03/25 17:03 01/03/25 17:15 01/03/25 17:17 Temperature Pulse Rate 96 95 89 Pulse Rate [Pulse Oximeter] Respiratory Rate 25 H 17 18 Blood Pressure 176/105 H Blood Pressure [Ri ght Arm] Blood Pressure [Ri ght Upper Arm] Pulse Oximetry 100 98 98 Oxygen Delivery Me thod 01/03/25 17:18 01/03/25 17:30 01/03/25 17:32 Temperature Pulse Rate 80 91 88 Pulse Rate [Pulse Oximeter] Respiratory Rate 26 H 21 15 Blood Pressure 163/102 H Blood Pressure [Ri ght Arm] Blood Pressure [Ri ght Upper Arm] Pulse Oximetry 97 96 96 Oxygen Delivery Me thod 01/03/25 17:45 01/03/25 17:46 01/03/25 17:47 Temperature Pulse Rate 91 90 84 Pulse Rate [Pulse Oximeter] Respiratory Rate 13 15 14 Blood Pressure 156/101 H Blood Pressure [Ri ght Arm] Blood Pressure [Ri ght Upper Arm] Pulse Oximetry 94 96 97 Oxygen Delivery Me thod 01/03/25 18:44 01/03/25 18:45 01/03/25 18:47 Temperature Pulse Rate 84 Pulse Rate [Pulse Oximeter] Respiratory Rate 19 10 L 18 Blood Pressure 182/106 H Blood Pressure [Ri ght Arm] Blood Pressure [Ri ght Upper Arm] Pulse Oximetry 98 Oxygen Delivery Me thod 01/03/25 19:00 01/03/25 19:19 01/03/25 19:30 Temperature Pulse Rate 82 87 Pulse Rate [Pulse Oximeter] Respiratory Rate 18 22 22 Blood Pressure Blood Pressure [Ri ght Arm] Blood Pressure [Ri ght Upper Arm] Pulse Oximetry 98 96 Oxygen Delivery Me thod 01/03/25 19:45 01/03/25 20:00 01/03/25 20:15 Temperature Pulse Rate 82 Pulse Rate [Pulse Oximeter] Respiratory Rate 10 L 16 15 Blood Pressure Blood Pressure [Ri ght Arm] Blood Pressure [Ri ght Upper Arm] Pulse Oximetry 96 Oxygen Delivery Me thod 01/03/25 20:30 01/03/25 20:45 01/03/25 20:46 Temperature Pulse Rate 80 83 Pulse Rate [Pulse Oximeter] Respiratory Rate 22 20 23 Blood Pressure 162/97 H Blood Pressure [Ri ght Arm] Blood Pressure [Ri ght Upper Arm] Pulse Oximetry 98 99 Oxygen Delivery Ky thod 01/03/25 21:00 01/03/25 21:02 01/03/25 21:15 Temperature Pulse Rate 79 75 80 Pulse Rate [Pulse Oximeter] Respiratory Rate 16 19 17 Blood Pressure 136/91 H Blood Pressure [Ri ght Arm] Blood Pressure [Ri ght Upper Arm] Pulse Oximetry 97 97 98 Oxygen Delivery Ky thod 01/03/25 21:23 Temperature 97.6 F Pulse Rate Pulse Rate [Pulse Oximeter] 82 Respiratory Rate 16 Blood Pressure Blood Pressure [Ri ght Arm] 149/91 H Blood Pressure [Ri ght Upper Arm] Pulse Oximetry 97 Oxygen Delivery Ky thod Room Air Hospitalist - H&P: Result Labs Labs: Short CBC 01/03/25 Range/Units 16:15 WBC 3.76 L (4.50-11.00) K/uL Hgb 12.5 (12.0-16.0) gm/dL Hct 37.0 (33.0-51.0) % Plt Count 187 (140-440) K/uL BMP 01/03/25 16:15 Sodium 138 Potassium 3.0 L Chloride 94 L Carbon Dioxide 17 L BUN 11 Creatinine 0.6 Glucose 184 H Calcium 9.4 Cardiac Enzymes 01/03/25 01/03/25 Range/Units 16:15 16:53 Total Creatine Kinase 112 (41-117) U/L Troponin I 0.03 (0.01-0.04) ng/mL Liver Function 01/03/25 Range/Units 16:15 Total Bilirubin 1.7 H (0.1-1.5) mg/dL AST 123 H (12-35) U/L ALT 60 H (4-35) U/L Alkaline Phosphatase 112 (40-150) U/L Albumin 5.5 H (3.3-5.0) g/dL Urine 01/03/25 Range/Units 17:15 Urine Color Yellow (Yellow) Urine Appearance Clear (Clear) Urine pH 6.0 (5.0-8.5) Ur Specific [place] 1.015 (1.000-1.030) Urine Protein 2+ A (Negative) Urine Glucose (UA) Trace A (Negative) ECG ECG interpretation date: 01/03/25 Interpretation: Initial ECG demonstrates sinus tachycardia versus supraventricular tachycardia. I favor the former. After IV fluid resuscitation patient has normal sinus rhythm. No electrocardiographic findings suggestive of ischemia or infarct. Imaging CT scan - head: Radiologist's impression: 1. No acute intracranial abnormality. Resolution of the right hemispheric subdural hematoma noted on the 03/06/2024 study. 2. Small right frontal scalp contusion. 3. 5 mm rightward midline shift may be on a congenital basis as there is no space-occupying lesion to account for the shift. CT scan -cervical spine: Radiologist's impression: 1. No convincing radiographic evidence of acute osseous injury. 2. Scattered degenerative changes of the cervical spine. CT Chest/Ab/Pelvis: Radiologist's impression: 1. No acute fracture or malalignment. Multiple remote fractures as detailed above. 2. No appreciable pulmonary embolism. 3. Subcentimeter ground-glass opacity in the right upper lobe, likely infectious/inflammatory. 4. Additional incidental findings as detailed above. Chest x-ray: Radiologist's impression: No acute cardiopulmonary process or acute traumatic injury. Assessment and Plan Assessment and plan (1) Acute alteration in mental status: Problem comment: - confused and agitated on initial presentation to the ED, then later normalized - possible post-ictal state and normalization subsequently Status: Acute (2) Fall: Problem comment: - found down 01/03/25, possible fall - question if fall first, then altered mental status, versus altered mental status first then fall - possible syncope, orthostatic hypotension, seizure and post-ictal state, concussion, etc - neuro checks - PT and OT to assess - monitor for ETOH withdrawal with CIWA Status: Acute (3) Lactic acidosis: Problem comment: - Lactate 12.5 initially. Improved to 8 after 1 L NS IV, then improved to 3 after 2 L NS IV. - etiology not yet determined: sepsis, post-ictal, dehydration, trauma, etc. - more IVF and monitor Status: Acute (4) Diarrhea: Problem comment: - h/o C Diff - check for C Diff - start empiric oral vancomycin while waiting for C Diff stool test results Status: Acute (5) Chronic diarrhea: Status: Acute (6) C. difficile diarrhea: Problem comment: -stool C diff positive 02/01. Previous positive infections 12/22/2023 and 10/28/2023 -oral vancomycin q.i.d. x at least 10 days, and will need tapering thereafter. Status: Acute (7) Hypertension: Problem comment: - she does not recall if she has been taking her anti-HTN Rxs... - resume her anti-HTN Rxs Status: Acute (8) Hypomagnesemia: Problem comment: - acute on chronic - replace and monitor Status: Acute (9) Acute hypokalemia: Problem comment: - acute on chronic - replace and monitor Status: Acute (10) Pulmonary infiltrate on radiologic exam: Problem comment: - CT scan demonstrates small RUL ground glass opacity - blood culture obtained - IV cefepime (allergy to PCN), vancomycin, azithromycin for now and consider reduction and elimination as clinical course evolves Status: Acute (11) Weakness: Problem comment: -acute on chronic recurrent. Agree multifactorial in setting of active C difficile infection, electrolyte imbalance, chronic deconditioning, alcohol dependence -PT/OT consults. greeter guest services for discharge planning Status: Acute (12) Alcohol dependence: Problem comment: -1 rum and Coke daily 2-3 days per week. CIWA protocol in case. -daily MVI, thiamine, folic acid Status: Acute (13) Alcoholic liver disease: Problem comment: -stigmata: severe fatty liver, macrocytic anemia, pancytopenia, elevated INR and bilirubin. Normal creatinine, no ascites. MELD 8 12/30/24 Status: Acute (14) Fluid volume depletion: Problem comment: -received 2 L IVF in ED. Tolerating oral intake. -check orthostatic BP and HR Status: Acute Plan 1. Reviewed impression with patient and with Dr. Larkin, [facility] 2. Answered patient's questions to her satisfaction 3. Patient agreeable with above stated plans and recommendations Total Time Spent Total Time Spent: 70 minutes
[2025-01-03] MEDS: 0.9 % SODIUM CHLORIDE 500 ML 500 ML IV (23:26)
[2025-01-03] MEDS: NICOTINE 14 mg PATCH 1 PATCH TOPICAL (23:26)
--- NOTE | 2025-01-03 23:28 | PC.NURSE ---
End of shift note: Pt arrived to unit @ 2122 via bed. Pt AxOx4, pleasant, and cooperative. Pt reported no active pain/headache/SOB/CP/nausea/dizziness. Pt used beside commode, Pt reported feeling unsteady on her feet. Pt continent of the bladder. Awaiting stool sample due to hx of cdiff, precautions put in place. CIWAAs scored 1 and 1. Tremors felt but not seen. Multiple scabs/skin tears/bruising noted that are at different stages of healing. Open to air, no drainage noted. Ortho BPs complete with no significant change in VS. Tele read NSR. Pt appears resting watching television with call light in reach. Understanding met on the use of call light. Bed alarm in place.
[2025-01-04] VITALS (18 sets, daily range): BP systolic 89–200; BP diastolic 69–160; PULSE 68–169; RESP 18–218; TEMP 36.1–37.2; O2SAT 94–100
[2025-01-04] MEDS: 0.9 % SODIUM CHLORIDE 1000 ml 1,000 ML 75 ML IV (00:32)
[2025-01-04] MEDS: CEFEPIME HCL 1 GM in 0.9 % SODIUM CHLORIDE Mini-bag 100 ML IVPB (02:13)
[2025-01-04 06:25] LABS: Lactate* 0.6 mmol/L (0.5-1.9)
[2025-01-04 06:42] LABS: Hematocrit 29.1 % (33.0-51.0); Hemoglobin* 9.8 gm/dL (12.0-16.0); Mean Corpuscular HGB Conc 34 gm/dL (32-36); Mean Corpuscular Hemoglobin 35 pg (26-34); Mean Corpuscular Volume 105 fL (80-100); Platelet Count* 174 K/uL (140-440); Red Blood Count 2.78 m/uL (4.00-5.20); White Blood Count* 4.75 K/uL (4.50-11.00)
[2025-01-04] MEDS: ACETAMINOPHEN 325 MG TABLET 650 MG PO (06:55)
[2025-01-04 07:01] LABS: Chloride* 100 mmol/L (96-114); Sodium* 135 mmol/L (135-149)
[2025-01-04 07:04] LABS: Creatinine* 0.5 mg/dL (0.5-1.5); Est. Creatinine Clearance* 50.83; Estimated Glomerular Filt Rate 105 ml/min; Slide Review Reflex No
[2025-01-04 07:05] LABS: Anion Gap 11 mEq/L (7-15); Blood Urea Nitrogen* 8 mg/dL (7-30); Calcium* 7.7 mg/dL (8.4-10.6); Carbon Dioxide* 24 mmol/L (20-32); Glucose* 81 mg/dL (60-115); Magnesium* 1.1 mg/dL (1.5-2.6); Phosphorus* 2.6 mg/dL (2.5-4.5)
[2025-01-04 07:34] LABS: C Reactive Protein* < 0.5 mg/dL (0.5-1.0)
[2025-01-04 08:17] LABS: Thyroid Stimulating Hormone* 0.568 uIU/mL (0.270-4.20)
[2025-01-04] MEDS: LORazepam 1 MG TABLET PO ×5 (08:26→21:35)
[2025-01-04] MEDS: MAGNESIUM IV 2 GM/50 ML PIGGYBACK IVPB (08:28)
[2025-01-04] MEDS: 0.9 % SODIUM CHLORIDE 500 ML 500 ML IV (08:30)
[2025-01-04] MEDS: ADENOSINE 6 MG/2ML INJ IVP (08:41)
[2025-01-04 08:52] LABS: HCO3 VBG 20 mmol/L (21-28); PCO2 VBG 46 mmHG (40-50); PO2 VBG 57.4 mmHG (25-47)
[2025-01-04 08:54] LABS: Lactate* 7.8 mmol/L (0.5-1.9)
[2025-01-04] MEDS: PHENobarbitaL 260 MG in 0.9 % SODIUM CHLORIDE 100 ml 100 ML 208 MG IVPB (08:54)
[2025-01-04 08:55] LABS: pH VBG 7.237 (7.32-7.43)
[2025-01-04] MEDS: SODIUM CHLORIDE 0.9 % (FLUSH) 10 ML SYRINGE 5 ML IVF ×3 (08:55→20:33)
[2025-01-04] MEDS: LORazepam 2 MG/ML inj 1 MG IVP (08:57)
[2025-01-04 09:02] LABS: Chloride* 98 mmol/L (96-114); Sodium* 137 mmol/L (135-149)
[2025-01-04 09:05] LABS: Anion Gap 22 mEq/L (7-15); Blood Urea Nitrogen* 6 mg/dL (7-30); Carbon Dioxide* 17 mmol/L (20-32); Creatinine* 0.6 mg/dL (0.5-1.5); Est. Creatinine Clearance* 50.83; Estimated Glomerular Filt Rate 100 ml/min
[2025-01-04 09:06] LABS: Glucose* 124 mg/dL (60-115)
--- NOTE | 2025-01-04 09:14 | P.IMPN_ITS ---
Progress Note: A&P Assessment and plan (1) Seizure: Problem details: - 01/04/25, witnessed - presumably 2/2 ETOH withdrawal - reviewed by phone with Neurology 01/04: recommend MRIs when patient able to tolerate, outpatient Neurology f/u Status: Acute (2) Noncompliance: Problem details: - history of noncompliance, son had been appointed temporary guardian in 2023 (then this ) - he is working on re-instating this given recurrent hospitalizations and complications of ETOH use Status: Acute (3) SVT (supraventricular tachycardia): Problem details: - noted 01/04/25 am after seizure - received Adenosine IV x1 - continue to follow on telemetry Status: Acute (4) Alcohol dependence: Problem details: - 1 rum and Coke daily 2-3 days per week per patient (per son, persistent daily use) - daily MVI, thiamine, folic acid - stigmata: severe fatty liver, macrocytic anemia, pancytopenia, elevated INR and bilirubin. Normal creatinine, no ascites. MELD 8 12/30/24 Status: Acute (5) Fall: Problem details: - found down 01/03/25, possible fall - ddx: mechanical, arrythmia, seizure Status: Acute (6) Lactic acidosis: Problem details: - Lactate 12.5 initially, improved after IVF resuscitation - 7.8 on 01/04 after seizure - continue IVF resuscitation, follow lactate Status: Acute (7) Acute alteration in mental status: Problem details: - confused and agitated on initial presentation to the ED, then later normalized - possible post-ictal state vs metabolic encephalopathy Status: Acute (8) Diarrhea: Problem details: - h/o C Diff - negative C Diff on 12/14, will d/c empiric Vancomycin Status: Acute (9) Hypertension: Problem details: - tells me on 01/04 that her Losartan was discontinued for lower BPs - BP elevated (presumably 2/ ETOH withdrawal), restarted Losartan 01/03 Status: Acute (10) Hypomagnesemia: Problem details: - acute on chronic - replace and monitor Status: Acute (11) Acute hypokalemia: Problem details: - acute on chronic - replace and monitor Status: Acute (12) Pulmonary infiltrate on radiologic exam: Problem details: - per CT scan 06/2024, chronic (results below) - appears stable on hospital day 1 from this perspective (normal WBC, no fever, no cough, no hypoxia) - IV Vancomycin, Cefepime, Azithromycin started 01/03/24, will d/c on 01/04 given reassuring clinical picture - BCx NGTD 01/04 -CT results: 1. Clustered subcentimeter ground-glass opacities in the right upper lobe. Appearance is most consistent with focal infectious or inflammatory opacities. Consider follow-up chest CT in 3 months to document resolution. 2. No findings suspicious for metastatic disease in the chest abdomen or pelvis. 3. Nonspecific mild bowel wall thickening in the sigmoid colon could reflect a mild colitis. 4. 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 Recommend attention on follow-up. Status: Acute (13) Weakness: Problem details: - acute on chronic recurrent. Agree multifactorial in setting of active C difficile infection, electrolyte imbalance, chronic deconditioning, alcohol dependence - PT/OT consults. nutrition services worker for discharge planning Status: Acute (14) Adenocarcinoma, colon: Problem details: -s/p robotic-assisted extended right hemicolectomy with ileotransverse anastomo sis with Dr. Gallo, CHRISTOPHER, 07/02/24 Status: Acute Plan - per above Time Spent With Patient Total time spent: - critical care time: 90 minutes including rapid response, seizure management, SVT management, updates to son by phone Subjective Date Seen: 01/04/25 Interval history: Simona was admitted to the hospital last night after being found down at home. This morning she had a generalized tonic-clonic seizure that lasted approximately 1 minute while we were talking. Rapid response was called. Course of acute treatment: - given 4mg of IV of Lorazepam in total, 260mg of IV Phenobarbital - Magnesium hung, NS bolus initiated - labs obtained - air sampling and monitoring exhibited SVT (rate into the 180s), confirmed by EKG - given 6mg of Adenosine with improvement in rate VS improved after the above mentioned interventions. Labs revealed a lactate >7, K of 2.9, pH of 7.237. Care was escalated to CCU status with 1:1 nursing care Exam Narrative: Exam Narrative: GEN: Alert and oriented, normal during initial evaluation. After seizure: postictal, then psychomotor slowing noted HEENT: Normal external ears, EOMIs bilaterally, no scleral icterus. Eyes deviated to the L during seizure, repeat exam back to baseline CV: RRR, No concerning murmurs, rubs, or gallops R: LCTA bilaterally without concerning wheezing Ab: Soft, nontender, nondistended Ext: Thin extremities Skin: Bruising L chest wall, no other concerning skin lesions or rashes on exposed skin Neuro: Nonfocal pre-seizure, post-seizure noted to have psychomotor slowing, no significant resting tremor. Gait not observed Psych: Appropriate Const: Vital Signs, click to edit/add: Vital Signs - 24 hr 01/03/25 16:18 01/03/25 16:19 01/03/25 16:20 Temperature 97.7 F Pulse Rate 156 H 148 H Pulse Rate [Pulse Oximeter] 163 H Pulse Rate [orthos tatic lying Pulse Oximeter] Pulse Rate [orthos tatic sitting Puls e Oximeter] Pulse Rate [orthos tatic standing Pul se Oximeter] Respiratory Rate 9 L 11 L 20 Blood Pressure 177/128 H Blood Pressure [Ri ght Arm] Blood Pressure [Ri ght Upper Arm] 192/135 H Blood Pressure [or thostatic lying Ri ght Arm] Blood Pressure [or thostatic sitting Right Arm] Blood Pressure [or thostatic standing Right Arm] Pulse Oximetry 98 98 98 Oxygen Delivery Me thod Room Air 01/03/25 16:33 01/03/25 16:34 01/03/25 16:45 Temperature Pulse Rate 160 H 135 H 132 H Pulse Rate [Pulse Oximeter] Pulse Rate [orthos tatic lying Pulse Oximeter] Pulse Rate [orthos tatic sitting Puls e Oximeter] Pulse Rate [orthos tatic standing Pul se Oximeter] Respiratory Rate 24 16 10 L Blood Pressure 140/121 H Blood Pressure [Ri ght Arm] Blood Pressure [Ri ght Upper Arm] Blood Pressure [or thostatic lying Ri ght Arm] Blood Pressure [or thostatic sitting Right Arm] Blood Pressure [or thostatic standing Right Arm] Pulse Oximetry 99 98 100 Oxygen Delivery Me thod 01/03/25 16:47 01/03/25 17:00 01/03/25 17:02 Temperature Pulse Rate 127 H 99 96 Pulse Rate [Pulse Oximeter] Pulse Rate [orthos tatic lying Pulse Oximeter] Pulse Rate [orthos tatic sitting Puls e Oximeter] Pulse Rate [orthos tatic standing Pul se Oximeter] Respiratory Rate 16 17 10 L Blood Pressure 177/118 H 162/111 H Blood Pressure [Ri ght Arm] Blood Pressure [Ri ght Upper Arm] Blood Pressure [or thostatic lying Ri ght Arm] Blood Pressure [or thostatic sitting Right Arm] Blood Pressure [or thostatic standing Right Arm] Pulse Oximetry 100 97 98 Oxygen Delivery Me thod 01/03/25 17:03 01/03/25 17:15 01/03/25 17:17 Temperature Pulse Rate 96 95 89 Pulse Rate [Pulse Oximeter] Pulse Rate [orthos tatic lying Pulse Oximeter] Pulse Rate [orthos tatic sitting Puls e Oximeter] Pulse Rate [orthos tatic standing Pul se Oximeter] Respiratory Rate 25 H 17 18 Blood Pressure 176/105 H Blood Pressure [Ri ght Arm] Blood Pressure [Ri ght Upper Arm] Blood Pressure [or thostatic lying Ri ght Arm] Blood Pressure [or thostatic sitting Right Arm] Blood Pressure [or thostatic standing Right Arm] Pulse Oximetry 100 98 98 Oxygen Delivery Me thod 01/03/25 17:18 01/03/25 17:30 01/03/25 17:32 Temperature Pulse Rate 80 91 88 Pulse Rate [Pulse Oximeter] Pulse Rate [orthos tatic lying Pulse Oximeter] Pulse Rate [orthos tatic sitting Puls e Oximeter] Pulse Rate [orthos tatic standing Pul se Oximeter] Respiratory Rate 26 H 21 15 Blood Pressure 163/102 H Blood Pressure [Ri ght Arm] Blood Pressure [Ri ght Upper Arm] Blood Pressure [or thostatic lying Ri ght Arm] Blood Pressure [or thostatic sitting Right Arm] Blood Pressure [or thostatic standing Right Arm] Pulse Oximetry 97 96 96 Oxygen Delivery Me thod 01/03/25 17:45 01/03/25 17:46 01/03/25 17:47 Temperature Pulse Rate 91 90 84 Pulse Rate [Pulse Oximeter] Pulse Rate [orthos tatic lying Pulse Oximeter] Pulse Rate [orthos tatic sitting Puls e Oximeter] Pulse Rate [orthos tatic standing Pul se Oximeter] Respiratory Rate 13 15 14 Blood Pressure 156/101 H Blood Pressure [Ri ght Arm] Blood Pressure [Ri ght Upper Arm] Blood Pressure [or thostatic lying Ri ght Arm] Blood Pressure [or thostatic sitting Right Arm] Blood Pressure [or thostatic standing Right Arm] Pulse Oximetry 94 96 97 Oxygen Delivery Me thod 01/03/25 18:44 01/03/25 18:45 01/03/25 18:47 Temperature Pulse Rate 84 Pulse Rate [Pulse Oximeter] Pulse Rate [orthos tatic lying Pulse Oximeter] Pulse Rate [orthos tatic sitting Puls e Oximeter] Pulse Rate [orthos tatic standing Pul se Oximeter] Respiratory Rate 19 10 L 18 Blood Pressure 182/106 H Blood Pressure [Ri ght Arm] Blood Pressure [Ri ght Upper Arm] Blood Pressure [or thostatic lying Ri ght Arm] Blood Pressure [or thostatic sitting Right Arm] Blood Pressure [or thostatic standing Right Arm] Pulse Oximetry 98 Oxygen Delivery Mn thod 01/03/25 19:00 01/03/25 19:19 01/03/25 19:30 Temperature Pulse Rate 82 87 Pulse Rate [Pulse Oximeter] Pulse Rate [orthos tatic lying Pulse Oximeter] Pulse Rate [orthos tatic sitting Puls e Oximeter] Pulse Rate [orthos tatic standing Pul se Oximeter] Respiratory Rate 18 22 22 Blood Pressure Blood Pressure [Ri ght Arm] Blood Pressure [Ri ght Upper Arm] Blood Pressure [or thostatic lying Ri ght Arm] Blood Pressure [or thostatic sitting Right Arm] Blood Pressure [or thostatic standing Right Arm] Pulse Oximetry 98 96 Oxygen Delivery Mn thod 01/03/25 19:45 01/03/25 20:00 01/03/25 20:15 Temperature Pulse Rate 82 Pulse Rate [Pulse Oximeter] Pulse Rate [orthos tatic lying Pulse Oximeter] Pulse Rate [orthos tatic sitting Puls e Oximeter] Pulse Rate [orthos tatic standing Pul se Oximeter] Respiratory Rate 10 L 16 15 Blood Pressure Blood Pressure [Ri ght Arm] Blood Pressure [Ri ght Upper Arm] Blood Pressure [or thostatic lying Ri ght Arm] Blood Pressure [or thostatic sitting Right Arm] Blood Pressure [or thostatic standing Right Arm] Pulse Oximetry 96 Oxygen Delivery Mn thod 01/03/25 20:30 01/03/25 20:45 01/03/25 20:46 Temperature Pulse Rate 80 83 Pulse Rate [Pulse Oximeter] Pulse Rate [orthos tatic lying Pulse Oximeter] Pulse Rate [orthos tatic sitting Puls e Oximeter] Pulse Rate [orthos tatic standing Pul se Oximeter] Respiratory Rate 22 20 23 Blood Pressure 162/97 H Blood Pressure [Ri ght Arm] Blood Pressure [Ri ght Upper Arm] Blood Pressure [or thostatic lying Ri ght Arm] Blood Pressure [or thostatic sitting Right Arm] Blood Pressure [or thostatic standing Right Arm] Pulse Oximetry 98 99 Oxygen Delivery Me thod 01/03/25 21:00 01/03/25 21:02 01/03/25 21:15 Temperature Pulse Rate 79 75 80 Pulse Rate [Pulse Oximeter] Pulse Rate [orthos tatic lying Pulse Oximeter] Pulse Rate [orthos tatic sitting Puls e Oximeter] Pulse Rate [orthos tatic standing Pul se Oximeter] Respiratory Rate 16 19 17 Blood Pressure 136/91 H Blood Pressure [Ri ght Arm] Blood Pressure [Ri ght Upper Arm] Blood Pressure [or thostatic lying Ri ght Arm] Blood Pressure [or thostatic sitting Right Arm] Blood Pressure [or thostatic standing Right Arm] Pulse Oximetry 97 97 98 Oxygen Delivery Me thod 01/03/25 21:23 01/03/25 21:23 01/03/25 22:06 Temperature 97.6 F 97.6 F Pulse Rate 95 Pulse Rate [Pulse Oximeter] 82 82 Pulse Rate [orthos tatic lying Pulse Oximeter] Pulse Rate [orthos tatic sitting Puls e Oximeter] Pulse Rate [orthos tatic standing Pul se Oximeter] Respiratory Rate 16 16 Blood Pressure Blood Pressure [Ri ght Arm] 149/91 H 149/91 H Blood Pressure [Ri ght Upper Arm] Blood Pressure [or thostatic lying Ri ght Arm] Blood Pressure [or thostatic sitting Right Arm] Blood Pressure [or thostatic standing Right Arm] Pulse Oximetry 97 97 Oxygen Delivery Me thod Room Air Room Air 01/03/25 22:08 01/03/25 22:23 01/03/25 22:23 Temperature 97.6 F Pulse Rate Pulse Rate [Pulse Oximeter] 79 Pulse Rate [orthos tatic lying Pulse Oximeter] 79 Pulse Rate [orthos tatic sitting Puls e Oximeter] 87 Pulse Rate [orthos tatic standing Pul se Oximeter] 94 Respiratory Rate 16 Blood Pressure Blood Pressure [Ri ght Arm] 137/100 H Blood Pressure [Ri ght Upper Arm] Blood Pressure [or thostatic lying Ri ght Arm] 137/100 H Blood Pressure [or thostatic sitting Right Arm] 137/109 H Blood Pressure [or thostatic standing Right Arm] 147/106 H Pulse Oximetry 100 Oxygen Delivery Me thod Room Air Room Air 01/03/25 23:00 01/04/25 01:16 01/04/25 03:00 Temperature 97.8 F Pulse Rate 71 Pulse Rate [Pulse Oximeter] 70 Pulse Rate [orthos tatic lying Pulse Oximeter] Pulse Rate [orthos tatic sitting Puls e Oximeter] Pulse Rate [orthos tatic standing Pul se Oximeter] Respiratory Rate 20 20 Blood Pressure Blood Pressure [Ri ght Arm] Blood Pressure [Ri ght Upper Arm] Blood Pressure [or thostatic lying Ri ght Arm] Blood Pressure [or thostatic sitting Right Arm] Blood Pressure [or thostatic standing Right Arm] Pulse Oximetry 96 Oxygen Delivery Me thod Room Air Room Air Labs Labs: Laboratory Results - last 24 hr 01/03/25 01/03/25 01/03/25 16:15 16:40 16:53 WBC 3.76 L RBC 3.48 L Hgb 12.5 Hct 37.0 MCV 106 H MCH 36 H MCHC 34 RDW Coeff of Katina 13.0 Plt Count 187 Neut % (Auto) 70.4 Lymph % (Auto) 17.8 L [place] % (Auto) 10.4 Eos % (Auto) 0.0 Baso % (Auto) 1.1 Neut # (Auto) 2.60 Lymph # (Auto) 0.70 L [place] # (Auto) 0.40 Eos # (Auto) 0.00 Baso # (Auto) 0.00 Abs Immat Gran (auto) 0.00 Imm/Tot Granulo (auto) 0.3 INR 0.92 VBG pH 7.299 L VBG pCO2 42 VBG pO2 39.4 VBG HCO3 21 Sodium 138 Potassium 3.0 L Chloride 94 L Carbon Dioxide 17 L Anion Gap 27 H BUN 11 Creatinine 0.6 Estimated Creat Clear 52.09 Estimated GFR 100 Glucose 184 H Lactate 12.0 H* 8.9 H* Calcium 9.4 Phosphorus Magnesium 0.8 L* Total Bilirubin 1.7 H AST 123 H ALT 60 H Alkaline Phosphatase 112 Total Creatine Kinase 112 Troponin I 0.03 C-Reactive Protein NT-Pro-B Natriuret Pep 794 Total Protein 8.8 H Albumin 5.5 H Lipase 296 TSH Urine Color Urine Appearance Urine pH Ur Specific [place] Urine Protein Urine Glucose (UA) Urine Ketones Urine Blood Urine Nitrite Urine Bilirubin Urine Urobilinogen Ur Leukocyte Esterase Urine RBC Urine WBC Ur Squamous Epith Cells Urine Bacteria Ethyl Alcohol < 0.00 L SARS-CoV-2 (PCR) Negative SARS-CoV-2 Influenza Type A (PCR) Negative PCR FLU A Influenza Type B (PCR) Negative PCR FLU B RSV (PCR) Negative PCR RSV 01/03/25 01/03/25 01/04/25 17:15 18:35 05:58 WBC 4.75 RBC 2.78 L Hgb 9.8 L Hct 29.1 L MCV 105 H MCH 35 H MCHC 34 RDW Coeff of Katina Plt Count 174 Neut % (Auto) Lymph % (Auto) [place] % (Auto) Eos % (Auto) Baso % (Auto) Neut # (Auto) Lymph # (Auto) [place] # (Auto) Eos # (Auto) Baso # (Auto) Abs Immat Gran (auto) Imm/Tot Granulo (auto) INR VBG pH VBG pCO2 VBG pO2 VBG HCO3 Sodium 135 Potassium 3.0 L Chloride 100 Carbon Dioxide 24 Anion Gap 11 BUN 8 Creatinine 0.5 Estimated Creat Clear 50.83 Estimated GFR 105 Glucose 81 Lactate 3.5 H 0.6 Calcium 7.7 L Phosphorus 2.6 Magnesium 1.1 L Total Bilirubin AST ALT Alkaline Phosphatase Total Creatine Kinase Troponin I C-Reactive Protein < 0.5 L NT-Pro-B Natriuret Pep Total Protein Albumin Lipase TSH 0.568 Urine Color Yellow Urine Appearance Clear Urine pH 6.0 Ur Specific [place] 1.015 Urine Protein 2+ A Urine Glucose (UA) Trace A Urine Ketones Negative Urine Blood 1+ A Urine Nitrite Negative Urine Bilirubin Negative Urine Urobilinogen 0.2 Ur Leukocyte Esterase Negative Urine RBC 10-25 A Urine WBC 0-2 Ur Squamous Epith Cells Few Urine Bacteria Moderate A Ethyl Alcohol SARS-CoV-2 (PCR) Influenza Type A (PCR) Influenza Type B (PCR) RSV (PCR) 01/04/25 08:30 WBC RBC Hgb Hct MCV MCH MCHC RDW Coeff of Katina Plt Count Neut % (Auto) Lymph % (Auto) [place] % (Auto) Eos % (Auto) Baso % (Auto) Neut # (Auto) Lymph # (Auto) [place] # (Auto) Eos # (Auto) Baso # (Auto) Abs Immat Gran (auto) Imm/Tot Granulo (auto) INR VBG pH 7.237 L* VBG pCO2 46 VBG pO2 57.4 H VBG HCO3 20 L Sodium Potassium Chloride Carbon Dioxide Anion Gap BUN Creatinine Estimated Creat Clear Estimated GFR Glucose Lactate 7.8 H* Calcium Phosphorus Magnesium Total Bilirubin AST ALT Alkaline Phosphatase Total Creatine Kinase Troponin I C-Reactive Protein NT-Pro-B Natriuret Pep Total Protein Albumin Lipase TSH Urine Color Urine Appearance Urine pH Ur Specific [place] Urine Protein Urine Glucose (UA) Urine Ketones Urine Blood Urine Nitrite Urine Bilirubin Urine Urobilinogen Ur Leukocyte Esterase Urine RBC Urine WBC Ur Squamous Epith Cells Urine Bacteria Ethyl Alcohol SARS-CoV-2 (PCR) Influenza Type A (PCR) Influenza Type B (PCR) RSV (PCR)
[2025-01-04 09:18] LABS: Troponin I* 0.03 ng/mL (0.01-0.04)
--- NOTE | 2025-01-04 09:43 | NUTR.NU ---
RDN with MD consult for nutritional consult. Patient admitted for AMS. History of alcohol misuse. Not appropriate o visit with patient at this time related to current medical status. RDN will continue to monitor and follow-up prn.
[2025-01-04] MEDS: POTASSIUM CHLORIDE 10 MEQ/100 ML PIGGYBACK 100 MEQ IVPB ×2 (09:46→10:46)
[2025-01-04] MEDS: METOPROLOL TARTRATE 25 MG TABLET 12.5 MG PO ×2 (09:48→20:32)
[2025-01-04] MEDS: MULTIVITAMIN/MINERALS 1 TABLET 1 TAB PO (09:50)
[2025-01-04] MEDS: LOSARTAN POTASSIUM 50 MG TABLET PO (09:51)
[2025-01-04] MEDS: SERTRALINE 50 MG TABLET 100 MG PO (09:51)
[2025-01-04] MEDS: MAGNESIUM OXIDE 400 MG TABLET PO ×3 (09:51→20:32)
[2025-01-04] MEDS: THIAMINE 100 MG TABLET PO (09:51)
[2025-01-04] MEDS: FOLIC ACID 1 MG TABLET PO (09:52)
[2025-01-04] MEDS: VANCOMYCIN 125 MG CAPSULE PO (09:52)
[2025-01-04] MEDS: POTASSIUM CHLORIDE 10 MEQ CAPSULE ER 40 MEQ PO ×2 (09:53→20:32)
[2025-01-04 11:27] LABS: Amphetamine Screen Urine Negative (Negative); Barbiturate Screen Urine POSITIVE (Negative); Benzodiazepines Screen Urine Negative (Negative); Cannabinoid Screen Urine POSITIVE (Negative); Cocaine Screen Urine Negative (Negative); Methadone Screen Urine Negative (Negative); Methamphetamines Screen Urine Negative (Negative); Opiate Screen Urine Negative (Negative); Oxycodone Screen Urine Negative (Negative); Phencyclidine Screen Urine Negative (Negative); Tricyclic Antidepressant Urine Negative (Negative)
[2025-01-04 13:07] LABS: HCO3 VBG 25 mmol/L (21-28); PCO2 VBG 38 mmHG (40-50); pH VBG 7.431 (7.32-7.43)
[2025-01-04 13:22] LABS: C.Difficile Negative (Negative); CDIFFEPI 027 PRESUMPTIVE NEGATIVE (Negative)
[2025-01-04 13:26] LABS: Chloride* 101 mmol/L (96-114); Potassium* 3.3 mmol/L (3.6-5.1); Sodium* 134 mmol/L (135-149)
[2025-01-04 13:29] LABS: Anion Gap 9 mEq/L (7-15); Blood Urea Nitrogen* 6 mg/dL (7-30); Carbon Dioxide* 24 mmol/L (20-32); Creatinine* 0.5 mg/dL (0.5-1.5); Est. Creatinine Clearance* 50.83; Estimated Glomerular Filt Rate 105 ml/min
[2025-01-04 13:30] LABS: Calcium* 7.9 mg/dL (8.4-10.6); Glucose* 95 mg/dL (60-115); Magnesium* 1.8 mg/dL (1.5-2.6)
--- NOTE | 2025-01-04 13:53 | REH.PT ---
Attempted 3x to see patient for PT evaluation today. Patient alert in PM, but refusing PT treatment today. Will attempt again in AM
[2025-01-04] MEDS: PHENobarbitaL 130 MG in 0.9 % SODIUM CHLORIDE 100 ml 100 ML 204 MG IVPB ×2 (15:59→23:59)
[2025-01-04] MEDS: 0.9 % SODIUM CHLORIDE 1000 ml 1,000 ML 150 ML IV ×2 (18:00→22:41)
--- NOTE | 2025-01-04 18:23 | REH.OT ---
OT: Order received, chart reviewed, attempted 3x. Patient had seizure this am, then declined, then incontinent of stools with nsg assisting 2x. Will reattempt tomorrow.
--- NOTE | 2025-01-04 19:55 | PC.NURSE ---
Pt was alert and oriented @0800 with morning assessment,able to answer questions and converse. Updated Dr. Valentino, who then went to speak with pt. While speaking with pt, pt began to seize and Dr. Valentino called a Rapid Response. Event notes to be scanned into chart, see chart. Pt has been impulsive, confused, and needing 1:1 care for safety. Rogers patent and draining. Incontinent and unaware of bowel. Pt is able to swallow without concern. Needing assistance and cueing to eat and drink. See MAR for medication administration for seizure and withdrawal concerns. Pt is redirectable while not remembering events of day.
[2025-01-04] MEDS: GABAPENTIN 300 MG CAPSULE PO (20:32)
[2025-01-04] MEDS: NICOTINE 14 mg PATCH 1 PATCH TOPICAL (21:35)
[2025-01-05] VITALS (32 sets, daily range): BP systolic 124–177; BP diastolic 74–121; PULSE 61–85; RESP 14–18; TEMP 36.1–36.8; O2SAT 94–100
[2025-01-05] MEDS: LORazepam 1 MG TABLET PO ×10 (01:28→21:17)
[2025-01-05] MEDS: 0.9 % SODIUM CHLORIDE 1000 ml 1,000 ML 150 ML IV ×3 (05:04→18:23)
--- NOTE | 2025-01-05 05:28 | PC.NURSE ---
[id number] Pt restless, fidgety and hallucinating when awake but able to sleep for a few hours between frequent cares and brief changes. liquid BM throughout shift, pt refused to drink ordered Metamucil. CIWA protocol followed, scheduled and prn ativan administered per protocol. pt alert to self and date. perez patent and draining. 1 episode of aspiration while drinking, pt able to cough and clear her own airway. tele NSR with occasional PVC's, prolonged QT.
[2025-01-05] MEDS: PHENobarbitaL 130 MG in 0.9 % SODIUM CHLORIDE 100 ml 100 ML 204 MG IVPB ×2 (07:39→11:17)
[2025-01-05 08:01] LABS: HCO3 VBG 20 mmol/L (21-28); Ionized Calcium* 1.09 mmol/L (1.11-1.30); Lactate* 0.8 mmol/L (0.5-1.9); PCO2 VBG 35 mmHG (40-50); PO2 VBG 39.3 mmHG (25-47); pH VBG 7.367 (7.32-7.43)
[2025-01-05 08:06] LABS: Basophils Absolute Auto 0.04 K/uL (0.00-0.30); Basophils Percent Auto 0.8 % (0.0-3.0); Eosinophils Absolute Auto 0.11 K/uL (0.00-0.50); Eosinophils Percent Auto 2.2 % (0.0-7.0); Hematocrit 31.6 % (33.0-51.0); Hemoglobin* 10.3 gm/dL (12.0-16.0); Immature Granulocytes Abs Auto 0.02 K/uL (0.00-0.30); Immature Granulocytes Pct Auto 0.4 %; Lymphocytes Percent Auto 30.2 % (20-44); Mean Corpuscular HGB Conc 33 gm/dL (32-36); Mean Corpuscular Hemoglobin 35 pg (26-34); Mean Corpuscular Volume 108 fL (80-100); Monocytes Percent Auto 11.5 % (0.0-11.0); Neutrophils Absolute Auto 2.73 K/uL (1.7-7.0); Neutrophils Percent Auto 54.9 % (42.0-72.0); Platelet Count* 154 K/uL (140-440); RDW Coefficient of Variation % 12.9 % (11.5-15.5); Red Blood Count 2.93 m/uL (4.00-5.20); White Blood Count* 4.97 K/uL (4.50-11.00)
[2025-01-05 08:07] LABS: Slide Review Reflex No
[2025-01-05 08:17] LABS: Albumin* 4.5 g/dL (3.3-5.0); Chloride* 107 mmol/L (96-114); Potassium* 3.2 mmol/L (3.6-5.1); Sodium* 136 mmol/L (135-149)
[2025-01-05 08:19] LABS: Creatinine* 0.4 mg/dL (0.5-1.5); Est. Creatinine Clearance* 50.06; Estimated Glomerular Filt Rate 110 ml/min
[2025-01-05 08:20] LABS: Alanine Aminotransferase* 37 U/L (4-35); Alkaline Phosphatase* 69 U/L (40-150); Anion Gap 12 mEq/L (7-15); Aspartate Amino Transferase* 44 U/L (12-35); Bilirubin Total* 1.1 mg/dL (0.1-1.5); Blood Urea Nitrogen* 5 mg/dL (7-30); Calcium* 8.3 mg/dL (8.4-10.6); Carbon Dioxide* 17 mmol/L (20-32); Glucose* 86 mg/dL (60-115); Magnesium* 1.3 mg/dL (1.5-2.6); Total Protein* 7.1 g/dL (6.0-8.3)
--- NOTE | 2025-01-05 08:53 | P.IMPN_ITS ---
Progress Note: A&P Assessment and plan (1) Seizure: Problem details: - 01/04/25, witnessed - presumably 2/2 ETOH withdrawal - reviewed by phone with Neurology 01/04: recommend MRIs when patient able to tolerate, outpatient Neurology f/u - seizure precautions, no recurrence Status: Acute (2) Acute alteration in mental status: Problem details: - confused and agitated on initial presentation to the ED, then later normalized - head CT wnl in ER on 01/03/25 - possible post-ictal state vs metabolic encephalopathy vs ETOH withdrawal (most likely given presentation and history) - therapies following, prn 1:1 cares - continue aggressive management for ETOH withdrawal Status: Acute (3) Noncompliance: Problem details: - history of noncompliance, son had been appointed temporary guardian in 2023 (then ; he is working on re-instating given recurrent hospitalizations/ETOH use) Status: Acute (4) SVT (supraventricular tachycardia): Problem details: - noted 01/04/25 am after seizure, had hypomagnesemia and hypokalemia at that time - received Adenosine IV x1 - continue to follow on telemetry, has remained in sinus rhythm since episode of SVT 01/04/25 Status: Acute (5) Alcohol dependence: Problem details: - 1 rum and Coke daily 2-3 days per week per patient (per son, persistent daily use) - daily MVI, thiamine, folic acid - stigmata: severe fatty liver, macrocytic anemia, pancytopenia, elevated INR and bilirubin. Normal creatinine, no ascites. MELD 8 12/30/24 Status: Acute (6) Fall: Problem details: - found down 01/03/25, possible fall, history of recurrent falls with rib fractures, hip fracture, subdural hematoma (02/2024) - ddx: mechanical, arrythmia, seizure Status: Acute (7) Lactic acidosis: Problem details: - Lactate 12.5 initially, improved after IVF resuscitation - 7.8 on 01/04 after seizure - continue IVF resuscitation, follow lactate (normalized again 01/05/25) Status: Acute (8) Diarrhea: Problem details: - h/o C Diff - negative C Diff on 12/14, d/c'd empiric Vancomycin at that time Status: Acute (9) Hypertension: Problem details: - was not taking Losartan prior to admission (states it was d/c'd secondary to lower BPs, unclear when) - BP elevated (presumably 2/2 ETOH withdrawal), restarted Losartan 01/03 Status: Acute (10) Hypomagnesemia: Problem details: - acute on chronic - replace and monitor Status: Acute (11) Acute hypokalemia: Problem details: - acute on chronic - replace and monitor Status: Acute (12) Pulmonary infiltrate on radiologic exam: Problem details: - per CT scan 06/2024, chronic (results below) - appears stable on hospital day 1 from this perspective (normal WBC, no fever, no cough, no hypoxia) - IV Vancomycin, Cefepime, Azithromycin started 01/03/24, will d/c on 01/04 given reassuring clinical picture - BCx NGTD 01/04 -CT results from [facility] chart 07/18: 1. Clustered subcentimeter ground-glass opacities in the right upper lobe. Appearance is most consistent with focal infectious or inflammatory opacities. Consider follow-up chest CT in 3 months to document resolution. 2. No findings suspicious for metastatic disease in the chest abdomen or pelvis. 3. Nonspecific mild bowel wall thickening in the sigmoid colon could reflect a mild colitis. 4. 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 Recommend attention on follow-up. Status: Acute (13) Weakness: Problem details: - acute on chronic, worsened by diarrhea, poor nutritional status, metabolic encephalopathy - PT/OT following, social services manager for discharge planning when medically stable Status: Acute (14) Adenocarcinoma, colon: Problem details: -s/p robotic-assisted extended right hemicolectomy with ileotransverse anastomosis with Dr. Gallo, [facility], 07/02/24 Status: Acute Plan - continue aggressive management of ETOH withdrawal - 1:1 caregiver prn given withdrawal, visual hallucinations - son updated by phone, questions answered Subjective Date Seen: 01/05/25 Interval history: Simona was admitted to the hospital on 01/03/25 after being found down at home in the setting of chronic ETOH abuse, severe hypokalemia and hypomagnesemia, acute on chronic diarrhea. On 01/04, had a generalized tonic-clonic seizure followed by SVT. Treated with Lorazepam, Phenobarbital, Adenosine, Magnesium, IVF bolus. No recurrent seizures. Neurology consulted by phone on 01/04, recommend treating ETOH withdrawal, obtaining MRI when compliant, outpatient Neurology f/u. Replacing electrolytes, both oral and IV. Diarrhea improving, C-Diff negative. CIWA scores have been increasing today; on scheduled Lorazepam, Phenobarbital, and Gabapentin. Not requiring supplemental oxygen. Exam Narrative: Exam Narrative: GEN: Lying in bed, appears chronically ill, not acutely toxic HEENT: Normal external ears, PERRL and EOMIs bilaterally, no facial droop CV: RRR, No concerning murmurs R: LCTA bilaterally without concerning wheezing, air movement adequate Ab: no ttp, no significant HSM Ext: thin, no concerning edema Skin: Scattered bruising, no other concerning skin lesions Neuro: Moving all extremities spontaneously and appropriately, intermittent tremor, gait not observed Psych: Mildly impaired 2/2 withdrawal, no agitation. Intermittently noting visual hallucinations Const: Vital Signs, click to edit/add: Vital Signs - 24 hr 01/04/25 08:55 01/04/25 10:00 01/04/25 11:00 Temperature 96.9 F L Pulse Rate Pulse Rate [Pulse Oximeter] 128 H 111 H 77 Respiratory Rate 20 18 Blood Pressure [Le ft Arm] 184/142 H 139/95 H 89/69 L Blood Pressure [Ri ght Arm] Pulse Oximetry 99 100 99 Oxygen Delivery Me thod Non Rebreather Mas k Nasal Cannula Nasal Cannula Oxygen Flow Rate 10 4 1 01/04/25 11:00 01/04/25 11:00 01/04/25 12:00 Temperature 96.9 F L 98.2 F Pulse Rate 77 Pulse Rate [Pulse Oximeter] 77 89 Respiratory Rate 18 20 Blood Pressure [Le ft Arm] 89/69 L 133/109 H Blood Pressure [Ri ght Arm] Pulse Oximetry 99 94 Oxygen Delivery Me thod Nasal Cannula Room Air Oxygen Flow Rate 1 01/04/25 12:00 01/04/25 13:00 01/04/25 15:00 Temperature 98.3 F Pulse Rate Pulse Rate [Pulse Oximeter] 89 83 68 Respiratory Rate 18 18 Blood Pressure [Le ft Arm] 136/91 H Blood Pressure [Ri ght Arm] Pulse Oximetry 97 Oxygen Delivery Me thod Room Air Oxygen Flow Rate 01/04/25 15:00 01/04/25 15:00 01/04/25 15:00 Temperature Pulse Rate 70 Pulse Rate [Pulse Oximeter] 68 Respiratory Rate 18 18 Blood Pressure [Le ft Arm] Blood Pressure [Ri ght Arm] Pulse Oximetry 98 98 Oxygen Delivery Me thod Room Air Room Air Oxygen Flow Rate 01/04/25 16:00 01/04/25 16:00 01/04/25 17:00 Temperature 98.3 F Pulse Rate Pulse Rate [Pulse Oximeter] 68 68 79 Respiratory Rate 18 218 H Blood Pressure [Le ft Arm] 153/102 H Blood Pressure [Ri ght Arm] Pulse Oximetry 98 98 Oxygen Delivery Me thod Room Air Room Air Oxygen Flow Rate 1 01/04/25 18:00 01/04/25 19:00 01/04/25 19:00 Temperature 98.1 F 98.9 F 98.9 F Pulse Rate Pulse Rate [Pulse Oximeter] 91 89 89 Respiratory Rate 20 20 18 Blood Pressure [Le ft Arm] 138/100 H Blood Pressure [Ri ght Arm] 154/114 H 154/114 H Pulse Oximetry 100 100 100 Oxygen Delivery Me thod Room Air Room Air Room Air Oxygen Flow Rate 1 01/04/25 19:00 01/04/25 20:00 01/04/25 21:00 Temperature 97.9 F Pulse Rate 91 Pulse Rate [Pulse Oximeter] 89 79 Respiratory Rate 18 Blood Pressure [Le ft Arm] Blood Pressure [Ri ght Arm] 153/112 H Pulse Oximetry 99 Oxygen Delivery Me thod Room Air Oxygen Flow Rate 0 01/04/25 23:00 01/04/25 23:00 01/04/25 23:00 Temperature 97.9 F Pulse Rate 69 Pulse Rate [Pulse Oximeter] 70 Respiratory Rate 18 18 Blood Pressure [Le ft Arm] Blood Pressure [Ri ght Arm] 141/88 H Pulse Oximetry 98 98 Oxygen Delivery Me thod Room Air Room Air Oxygen Flow Rate 0 0 01/05/25 00:00 01/05/25 01:00 01/05/25 01:28 Temperature Pulse Rate Pulse Rate [Pulse Oximeter] 67 67 68 Respiratory Rate 16 16 Blood Pressure [Le ft Arm] Blood Pressure [Ri ght Arm] 129/84 129/84 Pulse Oximetry 97 97 Oxygen Delivery Me thod Room Air Room Air Oxygen Flow Rate 0 0 01/05/25 02:20 01/05/25 03:00 01/05/25 03:00 Temperature 97.9 F 97.5 F L 97.5 F L Pulse Rate Pulse Rate [Pulse Oximeter] 68 83 83 Respiratory Rate 16 16 16 Blood Pressure [Le ft Arm] Blood Pressure [Ri ght Arm] 129/84 177/116 H 177/116 H Pulse Oximetry 97 96 96 Oxygen Delivery Me thod Room Air Room Air Room Air Oxygen Flow Rate 0 0 0 01/05/25 03:00 01/05/25 05:00 01/05/25 05:00 Temperature 97.5 F L 97.5 F L Pulse Rate 82 Pulse Rate [Pulse Oximeter] 61 61 Respiratory Rate 18 18 Blood Pressure [Le ft Arm] Blood Pressure [Ri ght Arm] 130/87 130/87 Pulse Oximetry 97 97 Oxygen Delivery Me thod Room Air Room Air Oxygen Flow Rate 0 01/05/25 07:27 01/05/25 07:27 01/05/25 07:34 Temperature 97.2 F L 97.2 F L Pulse Rate Pulse Rate [Pulse Oximeter] 69 69 Respiratory Rate 16 16 16 Blood Pressure [Le ft Arm] Blood Pressure [Ri ght Arm] 135/74 135/74 Pulse Oximetry 97 97 Oxygen Delivery Me thod Room Air Room Air Oxygen Flow Rate 0 0 01/05/25 07:35 01/05/25 07:36 01/05/25 08:00 Temperature 97.2 F L Pulse Rate Pulse Rate [Pulse Oximeter] 69 69 Respiratory Rate 16 16 Blood Pressure [Le ft Arm] Blood Pressure [Ri ght Arm] 135/74 Pulse Oximetry 97 99 Oxygen Delivery Me thod Room Air Room Air Oxygen Flow Rate 0 0 Labs Labs: Laboratory Results - last 24 hr 01/04/25 01/04/25 01/04/25 08:30 10:50 12:00 WBC RBC Hgb Hct MCV MCH MCHC RDW Coeff of Katina Plt Count Neut % (Auto) Lymph % (Auto) [place] % (Auto) Eos % (Auto) Baso % (Auto) Neut # (Auto) Lymph # (Auto) [place] # (Auto) Eos # (Auto) Baso # (Auto) Abs Immat Gran (auto) Imm/Tot Granulo (auto) VBG pH 7.237 L* VBG pCO2 46 VBG pO2 57.4 H VBG HCO3 20 L Sodium 137 Potassium Chloride 98 Carbon Dioxide 17 L Anion Gap 22 H BUN 6 L Creatinine 0.6 Estimated Creat Clear 50.83 Estimated GFR 100 Glucose 124 H Lactate 7.8 H* Calcium 8.0 L Ionized Calcium Sharyn Magnesium Total Bilirubin AST ALT Alkaline Phosphatase Troponin I 0.03 Total Protein Albumin Stl C. diff Tox B Gene Negative Stl C. diff [id number]-NAP1-[id number] PRESUMPTIVE NEGATIVE Urine Opiates Screen Negative Ur Oxycodone Screen Negative Urine Methadone Screen Negative Ur Barbiturates Screen POSITIVE A U Tricyclic Antidepress Negative Ur Phencyclidine Scrn Negative Ur Amphetamines Screen Negative U Methamphetamines Scrn Negative U Benzodiazepines Scrn Negative Urine Cocaine Screen Negative U Marijuana (THC) Screen POSITIVE A Ur Drug Screen Comment See Note 01/04/25 01/05/25 12:58 07:55 WBC 4.97 RBC 2.93 L Hgb 10.3 L Hct 31.6 L MCV 108 H MCH 35 H MCHC 33 RDW Coeff of Katina 12.9 Plt Count 154 Neut % (Auto) 54.9 Lymph % (Auto) 30.2 [place] % (Auto) 11.5 H Eos % (Auto) 2.2 Baso % (Auto) 0.8 Neut # (Auto) 2.73 Lymph # (Auto) 1.50 [place] # (Auto) 0.60 Eos # (Auto) 0.11 Baso # (Auto) 0.04 Abs Immat Gran (auto) 0.02 Imm/Tot Granulo (auto) 0.4 VBG pH 7.431 H 7.367 VBG pCO2 38 L 35 L VBG pO2 35.0 39.3 VBG HCO3 25 20 L Sodium 134 L 136 Potassium 3.3 L 3.2 L Chloride 101 107 Carbon Dioxide 24 17 L Anion Gap 9 12 BUN 6 L 5 L Creatinine 0.5 0.4 L Estimated Creat Clear 50.83 50.06 Estimated GFR 105 110 Glucose 95 86 Lactate 0.8 Calcium 7.9 L 8.3 L Ionized Calcium Sharyn 1.09 L Magnesium 1.8 1.3 L Total Bilirubin 1.1 AST 44 H ALT 37 H Alkaline Phosphatase 69 Troponin I Total Protein 7.1 Albumin 4.5 Stl C. diff Tox B Gene Stl C. diff [id number] Urine Opiates Screen Ur Oxycodone Screen Urine Methadone Screen Ur Barbiturates Screen U Tricyclic Antidepress Ur Phencyclidine Scrn Ur Amphetamines Screen U Methamphetamines Scrn U Benzodiazepines Scrn Urine Cocaine Screen U Marijuana (THC) Screen Ur Drug Screen Comment
[2025-01-05] MEDS: LOSARTAN POTASSIUM 50 MG TABLET PO (09:11)
[2025-01-05] MEDS: POTASSIUM CHLORIDE 10 MEQ CAPSULE ER 40 MEQ PO ×2 (09:11→21:02)
[2025-01-05] MEDS: FOLIC ACID 1 MG TABLET PO (09:11)
[2025-01-05] MEDS: GABAPENTIN 300 MG CAPSULE PO ×2 (09:12→21:01)
[2025-01-05] MEDS: THIAMINE 100 MG TABLET PO (09:12)
[2025-01-05] MEDS: MULTIVITAMIN/MINERALS 1 TABLET 1 TAB PO (09:12)
[2025-01-05] MEDS: METOPROLOL TARTRATE 25 MG TABLET 12.5 MG PO ×2 (09:12→21:01)
[2025-01-05] MEDS: MAGNESIUM OXIDE 400 MG TABLET PO ×3 (09:12→21:01)
[2025-01-05] MEDS: SERTRALINE 50 MG TABLET 100 MG PO (09:12)
[2025-01-05] MEDS: PSYLLIUM HUSK (WITH SUGAR) 12 GM PACKET PO (09:13)
[2025-01-05] MEDS: SODIUM CHLORIDE 0.9 % (FLUSH) 10 ML SYRINGE 5 ML IVF ×2 (09:13→21:02)
--- NOTE | 2025-01-05 09:14 | NUTR.NU ---
RDN continues to monitor patient. Patient currently in withdrawal per CIWA. No appropriate for visit at this time. RDN will continue to monitor and follow-up when appropriate.
[2025-01-05] MEDS: POTASSIUM CHLORIDE 10 MEQ/100 ML PIGGYBACK 100 MEQ IVPB ×2 (09:29→10:29)
[2025-01-05] MEDS: MAGNESIUM IV 2 GM/50 ML PIGGYBACK IVPB (09:30)
--- NOTE | 2025-01-05 11:36 | REH.PT ---
Per nursing, pt is not appropriate at this time for PT/OT evaluation. Will reassess ability to evaluate tomorrow AM
--- NOTE | 2025-01-05 11:58 | REH.OT ---
OT: Per MD MOE patient's MRI on hold due to withdrawal symptoms. Patient sedated and unable ot participate in eval, OT to hold today.
--- NOTE | 2025-01-05 14:27 | PC.NURSE ---
7a-15: Pt alert to self at times. Pt confused. Pt had hallucinations of different people and animals in the room throughout the shift. Pt?s CWAW scores ranged from 5-15; see EMAR for intervention. Pt?s VS stable but with hypertensive blood pressures. Pt has a perez catheter in place. Pt slept most of the late morning/early afternoon. MRI was deferred by MD at this time.?
[2025-01-05 14:40] LABS: Potassium* 3.6 mmol/L (3.6-5.1)
[2025-01-05 14:43] LABS: Magnesium* 1.9 mg/dL (1.5-2.6)
[2025-01-05] MEDS: PHENobarbitaL 260 MG in 0.9 % SODIUM CHLORIDE 100 ml 100 ML 208 MG IVPB (15:49)
[2025-01-05] MEDS: NICOTINE 14 mg PATCH 1 PATCH TOPICAL (21:14)
[2025-01-06] VITALS (9 sets, daily range): BP systolic 155–174; BP diastolic 95–106; PULSE 67–81; RESP 14–16; TEMP 36.2–36.6; O2SAT 96–100
[2025-01-06] MEDS: PHENobarbitaL 260 MG in 0.9 % SODIUM CHLORIDE 100 ml 100 ML 208 MG IVPB (00:18)
[2025-01-06] MEDS: 0.9 % SODIUM CHLORIDE 1000 ml 1,000 ML 150 ML IV ×2 (01:54→10:13)
[2025-01-06 06:03] LABS: Basophils Percent Auto 0.8 % (0.0-3.0); Eosinophils Percent Auto 4.7 % (0.0-7.0); Hematocrit 36.4 % (33.0-51.0); Hemoglobin* 11.8 gm/dL (12.0-16.0); Immature Granulocytes Pct Auto 0.5 %; Ionized Calcium* 1.23 mmol/L (1.11-1.30); Lactate* 0.7 mmol/L (0.5-1.9); Lymphocytes Percent Auto 29.1 % (20-44); Mean Corpuscular HGB Conc 32 gm/dL (32-36); Mean Corpuscular Hemoglobin 36 pg (26-34); Mean Corpuscular Volume 110 fL (80-100); Monocytes Percent Auto 11.3 % (0.0-11.0); Neutrophils Percent Auto 53.6 % (42.0-72.0); Platelet Count* 157 K/uL (140-440); RDW Coefficient of Variation % 12.9 % (11.5-15.5); Red Blood Count 3.32 m/uL (4.00-5.20); White Blood Count* 3.82 K/uL (4.50-11.00)
[2025-01-06 06:08] LABS: Slide Review Reflex No
[2025-01-06] MEDS: LORazepam 1 MG TABLET PO (06:10)
[2025-01-06 06:20] LABS: Chloride* 115 mmol/L (96-114); Potassium* 3.8 mmol/L (3.6-5.1); Sodium* 140 mmol/L (135-149)
[2025-01-06 06:23] LABS: Anion Gap 13 mEq/L (7-15); Carbon Dioxide* 12 mmol/L (20-32); Creatinine* 0.5 mg/dL (0.5-1.5); Est. Creatinine Clearance* 51.69; Estimated Glomerular Filt Rate 105 ml/min
[2025-01-06 06:24] LABS: Blood Urea Nitrogen* 5 mg/dL (7-30); Calcium* 8.8 mg/dL (8.4-10.6); Glucose* 81 mg/dL (60-115); Magnesium* 1.6 mg/dL (1.5-2.6)
--- NOTE | 2025-01-06 06:33 | PC.NURSE ---
End of shift [id number]: Pt oriented to self and place at times. Occasional confusion. Pleasant and cooperative. Pt speech improved throughout the shift appearing much less mumbled and more clear. Pt had hallucinations of and animal in the room during second round of CIWAAS. CIWAA scores: 4 and 8. Pt?s VS stable but with hypertensive blood pressures. Rogers in place that is patent and draining. Pt had 2 large incontinent liquid BMs. Pt stated Thank you for cleaning me up. Pt able to make needs known, stating Can I have a warming blanket. Scheduled Lorazepam was held @ 0130 due to Pt being asleep and drowsy when awoken. Pt alert this AM. Able to take pill with applesauce and a sip of water. Pt appears resting with call light in reach.
[2025-01-06] MEDS: MAGNESIUM IV 2 GM/50 ML PIGGYBACK IVPB (08:28)
[2025-01-06] MEDS: SODIUM CHLORIDE 0.9 % (FLUSH) 10 ML SYRINGE 5 ML IVF ×2 (10:13→21:00)
--- NOTE | 2025-01-06 10:35 | PM.IMPN1 ---
Progress Note: A&P Assessment and plan (1) Acute alteration in mental status: Problem details: - confused and agitated on initial presentation to the ED, improved, then altered again post-seizure/ETOH withdrawal - head CT wnl in ER on 01/03/25 - possible post-ictal state vs metabolic encephalopathy vs ETOH withdrawal (most likely given presentation and history) - therapies following, prn 1:1 cares - continue aggressive management for ETOH withdrawal Status: Acute (2) Seizure: Problem details: - 01/04/25, witnessed, presumably 2/2 ETOH withdrawal - reviewed by phone with Neurology 01/04: recommend MRIs when patient able to tolerate, outpatient Neurology f/u - seizure precautions, no recurrence Status: Acute (3) SVT (supraventricular tachycardia): Problem details: - noted 01/04/25 am after seizure, had hypomagnesemia and hypokalemia at that time - received Adenosine IV x1 - continue to follow on telemetry, has remained in sinus rhythm since episode of SVT 01/04/25 Status: Acute (4) Alcohol dependence: Problem details: - 1 rum and Coke daily 2-3 days per week per patient (per son, persistent daily use) - daily MVI, thiamine, folic acid - stigmata: severe fatty liver, macrocytic anemia, pancytopenia, elevated INR and bilirubin. Normal creatinine, no ascites. MELD 8 12/30/24 Status: Acute (5) Noncompliance: Problem details: - history of noncompliance, son had been appointed temporary guardian in 2023 (then ; he is working on re-instating given recurrent hospitalizations/ETOH use) Status: Acute (6) Lactic acidosis: Problem details: - Lactate 12.5 initially, improved after IVF resuscitation - 7.8 on 01/04 after seizure - continue IVF resuscitation, follow lactate (normalized again 01/05/25) Status: Acute (7) Diarrhea: Problem details: - h/o C Diff - negative C Diff on 12/14, d/c'd empiric Vancomycin at that time Status: Acute (8) Hypomagnesemia: Problem details: - acute on chronic - replace and monitor Status: Acute (9) Acute hypokalemia: Problem details: - acute on chronic - replace and monitor Status: Acute (10) Fall: Problem details: - found down 01/03/25, possible fall, history of recurrent falls with rib fractures, hip fracture, subdural hematoma (02/2024) - ddx: mechanical, arrythmia, seizure - therapies following, completed a course of rehab at [facility] February 2024 Status: Acute (11) Pulmonary infiltrate on radiologic exam: Problem details: - per CT scan 06/2024, chronic (results below) - appears stable on hospital day 1 from this perspective (normal WBC, no fever, no cough, no hypoxia) - IV Vancomycin, Cefepime, Azithromycin started 01/03/24, will d/c on 01/04 given reassuring clinical picture - BCx NGTD 01/04 -CT results from [facility] chart 07/18: 1. Clustered subcentimeter ground-glass opacities in the right upper lobe. Appearance is most consistent with focal infectious or inflammatory opacities. Consider follow-up chest CT in 3 months to document resolution. 2. No findings suspicious for metastatic disease in the chest abdomen or pelvis. 3. Nonspecific mild bowel wall thickening in the sigmoid colon could reflect a mild colitis. 4. 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 Recommend attention on follow-up. Status: Acute (12) Weakness: Problem details: - acute on chronic, worsened by diarrhea, poor nutritional status, metabolic encephalopathy - PT/OT following, social work lecturer for discharge planning when medically stable Status: Acute (13) Hypertension: Problem details: - was not taking Losartan prior to admission (states it was d/c'd secondary to lower BPs, unclear when) - BP elevated (presumably 2/2 ETOH withdrawal), restarted Losartan 01/03 Status: Acute (14) Adenocarcinoma, colon: Problem details: -s/p robotic-assisted extended right hemicolectomy with ileotransverse anastomosis with Dr. Gallo, [facility], 07/02/24 Status: Acute Plan - continue management of withdrawal symptoms - seizure precautions - remains on IVFs, not yet eating/drinking much. Rogers in place, will remove with ambulating - SCDs, Teds, Lovenox for ppx Subjective Date Seen: 01/06/25 Interval history: Simona was admitted to the hospital on 01/03/25 after being found down in the hallway of her apartment complex. History of chronic ETOH abuse, severe hypokalemia and hypomagnesemia, acute on chronic diarrhea (previous C-Diff infections, negative C-Diff this stay). Since admission: - 01/04, had a generalized tonic-clonic seizure followed by SVT. Treated with Lorazepam, Phenobarbital, Adenosine, Magnesium, IVF bolus. - No recurrent seizures; Neurology consulted by phone on 01/04, recommend treating ETOH withdrawal, obtaining MRI when compliant, outpatient Neurology f/u. - receiving IV and oral electrolyte replacement, K and Mg currently stable - diarrhea improving, negative C-Diff - Withdrawal: CIWA scores high 01/05/25, increased dose of scheduled Phenobarbital. Also on scheduled Lorazepam and Gabapentin. Maintaining O2 saturations on RA. This morning, patient is sleepy, answering yes/no questions appropriately. CIWA scores lower this morning; holding Phenobarbital and transitioning from scheduled to prn Lorazepam. Exam Narrative: Exam Narrative: GEN: Sleepy but arousable, in bed HEENT: Normal external ears, EOMIs bilaterally, no scleral icterus CV: RRR, No concerning murmurs R: LCTA bilaterally without concerning wheezing or rales Ext: Thin extremities, moving x4 appropriately Skin: No concerning skin lesions or rashes on exposed skin Neuro: Limited exam reassuring, gait not observed Psych: No agitation Const: Vital Signs, click to edit/add: Vital Signs - 24 hr 01/05/25 10:56 01/05/25 10:57 01/05/25 10:58 Temperature 98.3 F 98.3 F Pulse Rate Pulse Rate [Pulse Oximeter] 82 82 82 Respiratory Rate 16 16 Blood Pressure [Ri ght Arm] 156/107 H 156/107 H Pulse Oximetry 95 95 Oxygen Delivery Wi thod Room Air Room Air Oxygen Flow Rate 0 0 01/05/25 11:57 01/05/25 13:02 01/05/25 13:05 Temperature 98.3 F 97.5 F L 97.5 F L Pulse Rate Pulse Rate [Pulse Oximeter] 75 70 70 Respiratory Rate 16 18 18 Blood Pressure [Ri ght Arm] 141/86 H 151/99 H 151/99 H Pulse Oximetry 94 99 99 Oxygen Delivery Wi thod Room Air Room Air Room Air Oxygen Flow Rate 0 0 0 01/05/25 14:13 01/05/25 15:21 01/05/25 15:54 Temperature 97.4 F L Pulse Rate 64 Pulse Rate [Pulse Oximeter] 65 Respiratory Rate 18 16 Blood Pressure [Ri ght Arm] 141/103 H Pulse Oximetry 100 100 Oxygen Delivery Me thod Room Air Room Air Oxygen Flow Rate 0 01/05/25 15:54 01/05/25 19:16 01/05/25 19:18 Temperature 97.0 F L 98.0 F 98.0 F Pulse Rate Pulse Rate [Pulse Oximeter] 69 75 75 Respiratory Rate 16 14 14 Blood Pressure [Ri ght Arm] 139/99 H 146/96 H 146/96 H Pulse Oximetry 100 100 100 Oxygen Delivery Me thod Room Air Room Air Room Air Oxygen Flow Rate 0 01/05/25 19:56 01/05/25 20:00 01/05/25 21:00 Temperature 98.0 F Pulse Rate Pulse Rate [Pulse Oximeter] 75 81 85 Respiratory Rate 14 16 Blood Pressure [Ri ght Arm] 146/96 H Pulse Oximetry 100 97 Oxygen Delivery Me thod Room Air Room Air Oxygen Flow Rate 0 01/05/25 22:00 01/05/25 23:00 01/05/25 23:00 Temperature 97.8 F Pulse Rate Pulse Rate [Pulse Oximeter] 72 63 Respiratory Rate 18 16 16 Blood Pressure [Ri ght Arm] 155/102 H Pulse Oximetry 96 98 98 Oxygen Delivery Me thod Room Air Room Air Room Air Oxygen Flow Rate 0 01/05/25 23:00 01/05/25 23:37 01/05/25 23:37 Temperature 97.8 F Pulse Rate 66 Pulse Rate [Pulse Oximeter] 65 65 Respiratory Rate 16 Blood Pressure [Ri ght Arm] 155/102 H Pulse Oximetry 98 Oxygen Delivery Me thod Room Air Oxygen Flow Rate 0 01/06/25 03:00 01/06/25 03:00 01/06/25 07:17 Temperature 97.6 F Pulse Rate 67 Pulse Rate [Pulse Oximeter] 68 67 Respiratory Rate 16 Blood Pressure [Ri ght Arm] 174/106 H Pulse Oximetry 100 Oxygen Delivery Me thod Room Air Oxygen Flow Rate 01/06/25 07:56 01/06/25 07:56 Temperature 97.6 F Pulse Rate Pulse Rate [Pulse Oximeter] 74 Respiratory Rate 14 14 Blood Pressure [Ri ght Arm] 166/100 H Pulse Oximetry 96 96 Oxygen Delivery Me thod Room Air Room Air Oxygen Flow Rate Labs Labs: Laboratory Results - last 24 hr 01/05/25 01/06/25 14:18 05:36 WBC 3.82 L RBC 3.32 L Hgb 11.8 L Hct 36.4 MCV 110 H MCH 36 H MCHC 32 RDW Coeff of Katina 12.9 Plt Count 157 Neut % (Auto) 53.6 Lymph % (Auto) 29.1 [place] % (Auto) 11.3 H Eos % (Auto) 4.7 Baso % (Auto) 0.8 Neut # (Auto) 2.00 Lymph # (Auto) 1.10 [place] # (Auto) 0.40 Eos # (Auto) 0.20 Baso # (Auto) 0.00 Abs Immat Gran (auto) 0.00 Imm/Tot Granulo (auto) 0.5 Sodium 140 Potassium 3.6 3.8 Chloride 115 H Carbon Dioxide 12 L Anion Gap 13 BUN 5 L Creatinine 0.5 Estimated Creat Clear 51.69 Estimated GFR 105 Glucose 81 Lactate 0.7 Calcium 8.8 Ionized Calcium Sharyn 1.23 Magnesium 1.9 1.6
--- NOTE | 2025-01-06 16:32 | REH.PT ---
PT evaluation not attempted in am due to somnolence and then in pm after OT evaluated patient and patient not yet appropriate for PT interventions
[2025-01-06] MEDS: ENOXAPARIN 40 MG/0.4 ML INJ SUBCUT (20:43)
[2025-01-06] MEDS: GABAPENTIN 300 MG CAPSULE PO (20:43)
[2025-01-06] MEDS: MAGNESIUM OXIDE 400 MG TABLET PO (20:43)
[2025-01-06] MEDS: NICOTINE 14 mg PATCH 1 PATCH TOPICAL (20:43)
[2025-01-06] MEDS: POTASSIUM CHLORIDE 10 MEQ CAPSULE ER 40 MEQ PO (20:44)
[2025-01-06] MEDS: 0.9 % SODIUM CHLORIDE 1000 ml 1,000 ML 100 ML IV (20:44)
[2025-01-06] MEDS: PSYLLIUM HUSK (WITH SUGAR) 12 GM PACKET PO (20:44)
[2025-01-06] MEDS: METOPROLOL TARTRATE 25 MG TABLET 12.5 MG PO (20:44)
[2025-01-07] VITALS (12 sets, daily range): BP systolic 153–174; BP diastolic 82–97; PULSE 70–85; RESP 16–18; TEMP 36.4–36.9; O2SAT 99–100
--- NOTE | 2025-01-07 06:37 | PC.NURSE ---
19-07: asleep majority of the shift. Arouses to name, uncertain to date/time. A x 2 pivot to BSC. House Moving Supervisor noted dried blood to scalp, washed pts hair, found laceration, braided hair around wound, AM doc to assess. ?2x yellow liquid stools, incont x 1. Rogers patent and draining. VSS. Nicotine patch to Right Outer Arm/shoulder - to be replaced around 01/07. Tele ? NSR.
[2025-01-07] MEDS: 0.9 % SODIUM CHLORIDE 1000 ml 1,000 ML 100 ML IV ×2 (06:40→16:29)
[2025-01-07 06:43] LABS: Ionized Calcium* 1.26 mmol/L (1.11-1.30)
[2025-01-07 06:56] LABS: Basophils Percent Auto 0.5 % (0.0-3.0); Eosinophils Percent Auto 5.9 % (0.0-7.0); Hematocrit 33.8 % (33.0-51.0); Hemoglobin* 10.6 gm/dL (12.0-16.0); Immature Granulocytes Pct Auto 0.5 %; Lymphocytes Percent Auto 27.3 % (20-44); Mean Corpuscular HGB Conc 31 gm/dL (32-36); Mean Corpuscular Hemoglobin 35 pg (26-34); Mean Corpuscular Volume 113 fL (80-100); Monocytes Percent Auto 11.5 % (0.0-11.0); Neutrophils Percent Auto 54.3 % (42.0-72.0); Platelet Count* 173 K/uL (140-440); RDW Coefficient of Variation % 12.8 % (11.5-15.5); White Blood Count* 3.74 K/uL (4.50-11.00)
[2025-01-07 06:59] LABS: Slide Review Reflex No
[2025-01-07 07:03] LABS: Chloride* 116 mmol/L (96-114); Potassium* 4.2 mmol/L (3.6-5.1); Sodium* 141 mmol/L (135-149)
[2025-01-07 07:06] LABS: Anion Gap 15 mEq/L (7-15); Blood Urea Nitrogen* 6 mg/dL (7-30); Carbon Dioxide* 10 mmol/L (20-32); Creatinine* 0.5 mg/dL (0.5-1.5); Est. Creatinine Clearance* 47.21; Estimated Glomerular Filt Rate 105 ml/min; Glucose* 65 mg/dL (60-115)
[2025-01-07 07:07] LABS: Magnesium* 1.6 mg/dL (1.5-2.6)
[2025-01-07] MEDS: MULTIVITAMIN/MINERALS 1 TABLET 1 TAB PO (08:45)
[2025-01-07] MEDS: LOSARTAN POTASSIUM 50 MG TABLET PO (08:45)
[2025-01-07] MEDS: SERTRALINE 50 MG TABLET 100 MG PO (08:45)
[2025-01-07] MEDS: MAGNESIUM OXIDE 400 MG TABLET PO ×3 (08:46→20:30)
[2025-01-07] MEDS: GABAPENTIN 300 MG CAPSULE PO ×2 (08:46→20:30)
[2025-01-07] MEDS: SODIUM CHLORIDE 0.9 % (FLUSH) 10 ML SYRINGE 5 ML IVF ×2 (08:46→20:31)
[2025-01-07] MEDS: POTASSIUM CHLORIDE 10 MEQ CAPSULE ER 40 MEQ PO ×2 (08:46→20:30)
[2025-01-07] MEDS: METOPROLOL TARTRATE 25 MG TABLET 12.5 MG PO ×2 (08:46→20:30)
[2025-01-07] MEDS: FOLIC ACID 1 MG TABLET PO (08:46)
[2025-01-07] MEDS: THIAMINE 100 MG TABLET PO (08:46)
--- NOTE | 2025-01-07 12:57 | PM.IMPN1 ---
Progress Note: A&P Assessment and plan (1) Acute alteration in mental status: Problem details: - confused and agitated on initial presentation to the ED, improved, then altered again post-seizure/ETOH withdrawal - head CT wnl in ER on 01/03/25 - possible post-ictal state vs metabolic encephalopathy vs ETOH withdrawal (most likely given presentation and history) - therapies following, prn 1:1 cares - continue aggressive management for ETOH withdrawal Status: Acute (2) Seizure: Problem details: - 01/04/25, witnessed, presumably 2/2 ETOH withdrawal - reviewed by phone with Neurology 01/04: recommend MRIs when patient able to tolerate, outpatient Neurology f/u - seizure precautions, no recurrence Status: Acute (3) MRI of brain abnormal: Problem details: - results below from formal radiology read (01/06/25) - reviewed with Neurosurgery 01/07, recommends repeat CT scan in 3-4 days (or day of discharge) to ensure stability, outpatient f/u - therapies following given CVA, TTE ordered - will consult stroke Neurology following results from above 1. 7mm oval focus of diffusion signal abnormality in the right frontal lobe does not demonstrate diffusion restriction and most likely represents a subacute ischemic infarct. 2. Right hemispheric subdural collection measuring up to 3 mm in thickness suggestive of subacute subdural hematoma versus hygroma. Chronic right parietal alma hole. 3. Moderate parenchymal volume loss and chronic small vessel ischemic changes. Status: Acute (4) SVT (supraventricular tachycardia): Problem details: - noted 01/04/25 am after seizure, had hypomagnesemia and hypokalemia at that time - received Adenosine IV x1 - continue to follow on telemetry, has remained in sinus rhythm since episode of SVT 01/04/25 Status: Acute (5) Alcohol dependence: Problem details: - 1 rum and Coke daily 2-3 days per week per patient (per son, persistent daily use) - daily MVI, thiamine, folic acid - stigmata: severe fatty liver, macrocytic anemia, pancytopenia, elevated INR and bilirubin. Normal creatinine, no ascites. MELD 8 12/30/24 Status: Acute (6) Noncompliance: Problem details: - history of noncompliance, son had been appointed temporary guardian in 2023 (then ; he is working on re-instating given recurrent hospitalizations/ETOH use) Status: Acute (7) Lactic acidosis: Problem details: -RESOLVED - Lactate 12.5 initially, improved after IVF resuscitation - 7.8 on 01/04 after seizure - continue IVF resuscitation, follow lactate (normalized again 01/05/25) Status: Acute (8) Diarrhea: Problem details: - h/o C Diff - negative C Diff on 12/14, d/c'd empiric Vancomycin at that time Status: Acute (9) Hypomagnesemia: Problem details: - acute on chronic - replace and monitor Status: Acute (10) Acute hypokalemia: Problem details: - acute on chronic - replace and monitor Status: Acute (11) Fall: Problem details: - found down 01/03/25, possible fall, history of recurrent falls with rib fractures, hip fracture, subdural hematoma (02/2024) - ddx: mechanical, arrythmia, seizure - therapies following, completed a course of rehab at [facility] February 2024 Status: Acute (12) Pulmonary infiltrate on radiologic exam: Problem details: - per CT scan 06/2024, chronic (results below) - appears stable on hospital day 1 from this perspective (normal WBC, no fever, no cough, no hypoxia) - IV Vancomycin, Cefepime, Azithromycin started 01/03/24, will d/c on 01/04 given reassuring clinical picture - BCx NGTD 01/04 -CT results from [facility] chart 07/18: 1. Clustered subcentimeter ground-glass opacities in the right upper lobe. Appearance is most consistent with focal infectious or inflammatory opacities. Consider follow-up chest CT in 3 months to document resolution. 2. No findings suspicious for metastatic disease in the chest abdomen or pelvis. 3. Nonspecific mild bowel wall thickening in the sigmoid colon could reflect a mild colitis. 4. 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 Recommend attention on follow-up. Status: Acute (13) Weakness: Problem details: - acute on chronic, worsened by diarrhea, poor nutritional status, metabolic encephalopathy - PT/OT following, high school social studies tutor for discharge planning when medically stable Status: Acute (14) Hypertension: Problem details: - was not taking Losartan prior to admission (states it was d/c'd secondary to lower BPs, unclear when) - BP elevated (presumably 2/2 ETOH withdrawal), restarted Losartan 01/03 Status: Acute (15) Adenocarcinoma, colon: Problem details: -s/p robotic-assisted extended right hemicolectomy with ileotransverse anastomosis with Dr. Gallo, SARAHW, 07/02/24 Status: Acute Plan - per above - son Fahad updated by phone 01/07/25 - Lovenox for ppx - recommend SNF when medically stable for d/c, patient pre-contemplative Subjective Date Seen: 01/07/25 Interval history: Simona was admitted to the hospital on 01/03/25 after being found down in the hallway of her apartment complex. She has a history of chronic ETOH abuse, severe hypokalemia and hypomagnesemia, acute on chronic diarrhea (previous C-Diff infections, negative C-Diff this stay). Also had a subdural hematoma (requiring alma hole) 03/18, colon cancer s/p surgical resection 07/18. Notable findings during stay: - 01/04, had a generalized tonic-clonic seizure followed by SVT. Treated with Lorazepam, Phenobarbital, Adenosine, Magnesium, IVF bolus - No recurrent seizures; Neurology consulted by phone on 01/04, recommend treating ETOH withdrawal, MRI, outpatient Neurology f/u - receiving IV and oral electrolyte replacement, K and Mg remain wnl - diarrhea improving, negative C-Diff - Withdrawal: was on scheduled Phenobarbital, Lorazepam, and Gabapentin until 01/06/25. Phenobarbital d/c'd 01/06, Lorazepam changed to prn 01/06, Gabapentin d/c'd 01/07 - No hypoxia - MRI obtained 01/06 with results below. Reviewed with Neurosurgery, recommend repeat CT prior to d/c and outpatient f/u 1. 7mm oval focus of diffusion signal abnormality in the right frontal lobe does not demonstrate diffusion restriction and most likely represents a subacute ischemic infarct. 2. Right hemispheric subdural collection measuring up to 3 mm in thickness suggestive of subacute subdural hematoma versus hygroma. Chronic right parietal alma hole. 3. Moderate parenchymal volume loss and chronic small vessel ischemic changes. This morning, Simona remains somnolent but answering questions appropriately and awakens to voice. She denies any concerns for the hospitalist team; specifically requests to not be discharged to rehab when medically stable. Working with therapies, perez discontinued 01/07. Exam Narrative: Exam Narrative: GEN: Sleepy but arousable HEENT: + L scalp eschar (unchanged), EOMIs bilaterally, no scleral icterus, tongue protrudes midline CV: RRR, No concerning murmurs R: LCTA bilaterally without concerning wheezing, rales, or rhonchi Ext: wwp, thin Skin: No concerning skin lesions or rashes Neuro: Leans towards the L while seated, + moving extremities x4, no resting tremor, gait not observed today Psych: No agitation Const: Vital Signs, click to edit/add: Vital Signs - 24 hr 01/06/25 15:27 01/06/25 15:27 01/06/25 16:05 Temperature 97.6 F Pulse Rate 69 Pulse Rate [Pulse Oximeter] 73 Respiratory Rate 16 16 Blood Pressure [Ri ght Arm] 160/95 H Pulse Oximetry 99 99 Oxygen Delivery Me thod Room Air Room Air 01/06/25 20:00 01/06/25 23:00 01/06/25 23:00 Temperature 97.8 F 97.9 F Pulse Rate Pulse Rate [Pulse Oximeter] 81 67 Respiratory Rate 16 16 16 Blood Pressure [Ri ght Arm] 161/98 H 155/96 H Pulse Oximetry 99 99 99 Oxygen Delivery Me thod Room Air Room Air Room Air 01/06/25 23:10 01/07/25 03:00 01/07/25 03:00 Temperature 97.6 F Pulse Rate 67 Pulse Rate [Pulse Oximeter] 70 70 Respiratory Rate 16 Blood Pressure [Ri ght Arm] 173/96 H Pulse Oximetry 99 Oxygen Delivery Me thod Room Air 01/07/25 07:11 01/07/25 07:40 01/07/25 07:40 Temperature 97.9 F Pulse Rate 75 Pulse Rate [Pulse Oximeter] 78 Respiratory Rate 16 16 Blood Pressure [Ri ght Arm] 163/95 H Pulse Oximetry 99 99 Oxygen Delivery Me thod Room Air Room Air 01/07/25 11:14 Temperature 98.4 F Pulse Rate Pulse Rate [Pulse Oximeter] 85 Respiratory Rate 16 Blood Pressure [Ri ght Arm] 157/93 H Pulse Oximetry 99 Oxygen Delivery Me thod Room Air Labs Labs: Laboratory Results - last 24 hr 01/07/25 06:24 WBC 3.74 L RBC 3.00 L Hgb 10.6 L Hct 33.8 MCV 113 H MCH 35 H MCHC 31 L RDW Coeff of Katina 12.8 Plt Count 173 Neut % (Auto) 54.3 Lymph % (Auto) 27.3 [place] % (Auto) 11.5 H Eos % (Auto) 5.9 Baso % (Auto) 0.5 Neut # (Auto) 2.00 Lymph # (Auto) 1.00 [place] # (Auto) 0.40 Eos # (Auto) 0.20 Baso # (Auto) 0.00 Abs Immat Gran (auto) 0.00 Imm/Tot Granulo (auto) 0.5 Sodium 141 Potassium 4.2 Chloride 116 H Carbon Dioxide 10 L Anion Gap 15 BUN 6 L Creatinine 0.5 Estimated Creat Clear 47.21 Estimated GFR 105 Glucose 65 Calcium 9.0 Ionized Calcium Sharyn 1.26 Magnesium 1.6
--- NOTE | 2025-01-07 16:14 | PC.SOCIAL ---
Discharge planning: door worker attempted to meet with pt today to ask if pt would be willing to go to short-term rehab at [facility] after this hospital stay. Pt was sleeping in her recliner leaning to the left and would not wake to this worker's voice. door worker will attempt to meet with pt again tomorrow. Social work to follow-up as needed.
[2025-01-07] MEDS: ENOXAPARIN 40 MG/0.4 ML INJ SUBCUT (20:31)
[2025-01-07] MEDS: NICOTINE 14 mg PATCH 1 PATCH TOPICAL (20:39)
[2025-01-07] MEDS: PSYLLIUM HUSK (WITH SUGAR) 12 GM PACKET PO (20:40)
[2025-01-08] VITALS (19 sets, daily range): BP systolic 134–201; BP diastolic 87–117; PULSE 65–83; RESP 16–18; TEMP 36.2–36.9; O2SAT 96–99; BMI 19.2
[2025-01-08] MEDS: 0.9 % SODIUM CHLORIDE 1000 ml 1,000 ML 100 ML IV ×2 (02:30→18:09)
--- NOTE | 2025-01-08 06:21 | PC.NURSE ---
End of shift [id number]: Pt Alert and orientated to person and time. intermittently forgetful to place although easily reorientated. both Neuros and CIWAs unremarkable throughout shift. pt drowsy upon initial assessment. taking pills whole with yogurt. pt does need assistance with eating and drinking. NSR ad tolerating room air. seizure precautions in place. up w/ A2 to commode. incontinent of urine. no BMs this shift. bed alarm in place.
[2025-01-08 06:39] LABS: Basophils Percent Auto 0.9 % (0.0-3.0); Eosinophils Percent Auto 5.4 % (0.0-7.0); Hematocrit 32.6 % (33.0-51.0); Hemoglobin* 10.6 gm/dL (12.0-16.0); Lymphocytes Percent Auto 35.4 % (20-44); Mean Corpuscular HGB Conc 33 gm/dL (32-36); Mean Corpuscular Hemoglobin 36 pg (26-34); Mean Corpuscular Volume 111 fL (80-100); Monocytes Percent Auto 12.3 % (0.0-11.0); Platelet Count* 183 K/uL (140-440); RDW Coefficient of Variation % 12.8 % (11.5-15.5); Red Blood Count 2.94 m/uL (4.00-5.20); White Blood Count* 3.16 K/uL (4.50-11.00)
[2025-01-08 06:48] LABS: Slide Review Reflex No
[2025-01-08 06:49] LABS: Chloride* 117 mmol/L (96-114)
[2025-01-08 06:50] LABS: Albumin* 4.3 g/dL (3.3-5.0); Potassium* 4.5 mmol/L (3.6-5.1); Sodium* 143 mmol/L (135-149)
[2025-01-08 06:53] LABS: Alanine Aminotransferase* 37 U/L (4-35); Alkaline Phosphatase* 81 U/L (40-150); Anion Gap 14 mEq/L (7-15); Aspartate Amino Transferase* 43 U/L (12-35); Bilirubin Total* 0.5 mg/dL (0.1-1.5); Blood Urea Nitrogen* 7 mg/dL (7-30); Calcium* 9.4 mg/dL (8.4-10.6); Carbon Dioxide* 12 mmol/L (20-32); Creatinine* 0.6 mg/dL (0.5-1.5); Est. Creatinine Clearance* 51.46; Estimated Glomerular Filt Rate 100 ml/min; Glucose* 78 mg/dL (60-115); Magnesium* 1.2 mg/dL (1.5-2.6); Total Protein* 6.9 g/dL (6.0-8.3)
[2025-01-08 07:00] LABS: Cholesterol* 257 mg/dL (90-199); HDL Cholesterol* 99 mg/dL (>=50); LDL Cholesterol Calculated 134 mg/dL (<100); Triglycerides* 119 mg/dL (40-149)
--- NOTE | 2025-01-08 07:37 | PM.IMPN1 ---
Progress Note: A&P Assessment and plan (1) Acute alteration in mental status: Problem details: - confused and agitated on initial presentation to the ED, improved, then altered again post-seizure/ETOH withdrawal - head CT wnl in ER on 01/03/25 - possible post-ictal state vs metabolic encephalopathy vs ETOH withdrawal (most likely given presentation and history) - therapies following, was on prn 1:1 cares until 01/06/25 - close to baseline 01/08/25 Status: Acute (2) Seizure: Problem details: - 01/04/25, witnessed, presumably 2/2 ETOH withdrawal - reviewed by phone with Neurology 01/04: recommends MRI (results below), outpatient Neurology f/u - seizure precautions, no recurrence Status: Acute (3) MRI of brain abnormal: Problem details: - results below from formal radiology read (01/06/25) - reviewed with Neurosurgery 01/07, recommends repeat CT scan in 3-4 days (or day of discharge) to ensure stability, outpatient f/u - therapies following given CVA, TTE ordered - Stroke Neurology (Dr. Walker) visit 01/08: consider ASA (difficult given fall history, ETOH history, subdural), + statin, CTA head/neck (ordered 01/08/25) MRI results: 1. 7mm oval focus of diffusion signal abnormality in the right frontal lobe does not demonstrate diffusion restriction and most likely represents a subacute ischemic infarct. 2. Right hemispheric subdural collection measuring up to 3 mm in thickness suggestive of subacute subdural hematoma versus hygroma. Chronic right parietal alma hole. 3. Moderate parenchymal volume loss and chronic small vessel ischemic changes. Status: Acute (4) SVT (supraventricular tachycardia): Problem details: - noted 01/04/25 am after seizure, had hypomagnesemia and hypokalemia at that time - received Adenosine IV x1 - continue to follow on telemetry, has remained in sinus rhythm since episode of SVT 01/04/25 Status: Acute (5) Alcohol dependence: Problem details: - 1 rum and Coke daily 2-3 days per week per patient (per son, persistent daily use) - daily MVI, thiamine, folic acid - stigmata: severe fatty liver, macrocytic anemia, pancytopenia, elevated INR and bilirubin. Normal creatinine, no ascites. MELD 8 12/30/24 Status: Acute (6) Noncompliance: Problem details: - history of noncompliance, son had been appointed temporary guardian in 2023 (then ; he is working on re-instating given recurrent hospitalizations/ETOH use) Status: Acute (7) Hypomagnesemia: Problem details: - acute on chronic - replace and monitor Status: Acute (8) Acute hypokalemia: Problem details: - acute on chronic - replace and monitor Status: Acute (9) Fall: Problem details: - found down 01/03/25, possible fall, history of recurrent falls with rib fractures, hip fracture, subdural hematoma (02/2024) - ddx: mechanical, arrythmia, seizure - therapies following, completed a course of rehab at [facility] February 2024 Status: Acute (10) Pulmonary infiltrate on radiologic exam: Problem details: - per CT scan 06/2024, chronic (results below) - appears stable on hospital day 1 from this perspective (normal WBC, no fever, no cough, no hypoxia) - IV Vancomycin, Cefepime, Azithromycin started 01/03/24, will d/c on 01/04 given reassuring clinical picture - BCx NGTD 01/04 -CT results from [facility] chart 07/18: 1. Clustered subcentimeter ground-glass opacities in the right upper lobe. Appearance is most consistent with focal infectious or inflammatory opacities. Consider follow-up chest CT in 3 months to document resolution. 2. No findings suspicious for metastatic disease in the chest abdomen or pelvis. 3. Nonspecific mild bowel wall thickening in the sigmoid colon could reflect a mild colitis. 4. 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 Recommend attention on follow-up. Status: Acute (11) Weakness: Problem details: - acute on chronic, worsened by diarrhea, poor nutritional status, metabolic encephalopathy - PT/OT following, child welfare social worker for discharge planning when medically stable Status: Acute (12) Hypertension: Problem details: - was not taking Losartan prior to admission (states it was d/c'd secondary to lower BPs, unclear when) - BP elevated (presumably 2/2 ETOH withdrawal), restarted Losartan 01/03 Status: Acute (13) Adenocarcinoma, colon: Problem details: -s/p robotic-assisted extended right hemicolectomy with ileotransverse anastomosis with CHRISTOPHER Bae, 07/02/24 Status: Acute (14) Diarrhea: Problem details: - RESOLVED h/o C Diff - negative C Diff on 12/14, d/c'd empiric Vancomycin at that time Status: Acute (15) Lactic acidosis: Problem details: -RESOLVED - Lactate 12.5 initially, improved after IVF resuscitation - 7.8 on 01/04 after seizure - continue IVF resuscitation, follow lactate (normalized again 01/05/25) Status: Acute Plan - Lovenox for ppx - plan per above - anticipate SNF when medically stable for d/c Subjective Date Seen: 01/08/25 Interval history: Simona was admitted to the hospital on 01/03/25 after being found down in the hallway of her apartment complex. Known h/o chronic ETOH abuse, severe hypokalemia and hypomagnesemia, acute on chronic diarrhea (previous C-Diff infections, negative C-Diff this stay). Previous history also includes a subdural hematoma (requiring alma hole) 02/2024, colon cancer s/p surgical resection 06/2024. Notable findings during stay: - 01/04, had a generalized tonic-clonic seizure followed by SVT. Treated with Lorazepam, Phenobarbital, Adenosine, Magnesium, IVF bolus - No recurrent seizures; Neurology consulted by phone on 01/04, recommend treating ETOH withdrawal, MRI, outpatient Neurology f/u - receiving IV and oral electrolyte replacement, K and Mg remain wnl - diarrhea improving, negative C-Diff - Withdrawal: was on scheduled Phenobarbital, Lorazepam, and Gabapentin until 01/06/25. Phenobarbital d/c'd 01/06, Lorazepam changed to prn 01/06, Gabapentin d/c'd 01/07 - No hypoxia - MRI obtained 01/06 with results below. Reviewed with Neurosurgery, recommend repeat CT prior to d/c and outpatient f/u 1. 7mm oval focus of diffusion signal abnormality in the right frontal lobe does not demonstrate diffusion restriction and most likely represents a subacute ischemic infarct. 2. Right hemispheric subdural collection measuring up to 3 mm in thickness suggestive of subacute subdural hematoma versus hygroma. Chronic right parietal alma hole. 3. Moderate parenchymal volume loss and chronic small vessel ischemic changes. - Stroke Neurology consulted 01/08 (Dr. Walker): consider ASA if no recurrent subdural (patient is a fall risk, not initiating 01/08), statin. TTE reassuring Today (01/08), Simona is participating in therapies, sleeping between cares. No concerns of pain. PO intake remains poor. She understands that she's had a stroke and will need a SNF upon discharge. Exam Narrative: Exam Narrative: GEN: Sleepy, arouses to voice and answering questions appropriately HEENT: EOMIs bilaterally, no scleral icterus CV: RRR, No concerning murmurs R: LCTA bilaterally without concerning wheezing, rales, or rhonchi Ab: Soft, no ttp, no significant HSM Ext: thin, wwp, no concerning edema Skin: No concerning skin lesions or rashes on exposed skin Neuro: No resting tremor, moving extremities x4 Psych: Sleepy, no agitation Const: Vital Signs, click to edit/add: Vital Signs - 24 hr 01/07/25 07:40 01/07/25 07:40 01/07/25 11:14 Temperature 97.9 F 98.4 F Pulse Rate Pulse Rate [Pulse Oximeter] 78 85 Respiratory Rate 16 16 16 Blood Pressure [Ri ght Arm] 163/95 H 157/93 H Pulse Oximetry 99 99 99 Oxygen Delivery Me thod Room Air Room Air Room Air Oxygen Flow Rate 01/07/25 15:00 01/07/25 15:00 01/07/25 15:00 Temperature 98.2 F Pulse Rate Pulse Rate [Pulse Oximeter] 75 75 75 Respiratory Rate 18 18 Blood Pressure [Ri ght Arm] 153/82 H Pulse Oximetry 99 Oxygen Delivery Me thod Room Air Oxygen Flow Rate 01/07/25 15:00 01/07/25 15:00 01/07/25 19:06 Temperature 98.0 F Pulse Rate 75 Pulse Rate [Pulse Oximeter] 76 Respiratory Rate 18 16 Blood Pressure [Ri ght Arm] 165/90 H Pulse Oximetry 99 100 Oxygen Delivery Me thod Room Air Oxygen Flow Rate 0 01/07/25 19:06 01/07/25 19:08 01/07/25 23:01 Temperature 98.0 F 97.9 F Pulse Rate Pulse Rate [Pulse Oximeter] 76 76 74 Respiratory Rate 16 16 Blood Pressure [Ri ght Arm] 165/90 H 174/97 H Pulse Oximetry 100 99 Oxygen Delivery Me thod Room Air Room Air Oxygen Flow Rate 01/07/25 23:47 01/07/25 23:48 01/07/25 23:50 Temperature 97.9 F Pulse Rate Pulse Rate [Pulse Oximeter] 74 74 Respiratory Rate 16 16 Blood Pressure [Ri ght Arm] 174/97 H Pulse Oximetry 99 99 Oxygen Delivery Me thod Room Air Room Air Oxygen Flow Rate 0 0 01/07/25 23:57 01/08/25 02:31 01/08/25 02:37 Temperature 97.9 F Pulse Rate 75 Pulse Rate [Pulse Oximeter] 80 80 Respiratory Rate 16 Blood Pressure [Ri ght Arm] 180/99 H Pulse Oximetry 98 Oxygen Delivery Me thod Room Air Oxygen Flow Rate 01/08/25 02:38 Temperature 97.9 F Pulse Rate Pulse Rate [Pulse Oximeter] 80 Respiratory Rate 16 Blood Pressure [Ri ght Arm] 180/99 H Pulse Oximetry 98 Oxygen Delivery Me thod Room Air Oxygen Flow Rate 0 Labs Labs: Laboratory Results - last 24 hr 01/08/25 06:21 WBC 3.16 L RBC 2.94 L Hgb 10.6 L Hct 32.6 L MCV 111 H MCH 36 H MCHC 33 RDW Coeff of Katina 12.8 Plt Count 183 Neut % (Auto) 46.0 Lymph % (Auto) 35.4 [place] % (Auto) 12.3 H Eos % (Auto) 5.4 Baso % (Auto) 0.9 Neut # (Auto) 1.50 L Lymph # (Auto) 1.10 [place] # (Auto) 0.40 Eos # (Auto) 0.20 Baso # (Auto) 0.00 Abs Immat Gran (auto) 0.00 Imm/Tot Granulo (auto) 0.0 Sodium 143 Potassium 4.5 Chloride 117 H Carbon Dioxide 12 L Anion Gap 14 BUN 7 Creatinine 0.6 Estimated Creat Clear 51.46 Estimated GFR 100 Glucose 78 Calcium 9.4 Magnesium 1.2 L Total Bilirubin 0.5 AST 43 H ALT 37 H Alkaline Phosphatase 81 Total Protein 6.9 Albumin 4.3 Triglycerides 119 Cholesterol 257 H LDL Cholesterol, Calc 134 H HDL Cholesterol 99
[2025-01-08 08:25] LABS: Hemoglobin A1C* < 5.2 % (0-5.6)
[2025-01-08] MEDS: MAGNESIUM IV 2 GM/50 ML PIGGYBACK IVPB ×2 (08:25→12:39)
[2025-01-08] MEDS: SODIUM CHLORIDE 0.9 % (FLUSH) 10 ML SYRINGE 5 ML IVF (08:36)
[2025-01-08] MEDS: POTASSIUM CHLORIDE 10 MEQ CAPSULE ER 40 MEQ PO ×2 (08:36→21:06)
[2025-01-08] MEDS: FOLIC ACID 1 MG TABLET PO (08:37)
[2025-01-08] MEDS: SERTRALINE 50 MG TABLET 100 MG PO (08:37)
[2025-01-08] MEDS: MAGNESIUM OXIDE 400 MG TABLET PO ×3 (08:37→21:07)
[2025-01-08] MEDS: PSYLLIUM HUSK (WITH SUGAR) 12 GM PACKET PO ×2 (08:37→21:06)
[2025-01-08] MEDS: MULTIVITAMIN/MINERALS 1 TABLET 1 TAB PO (08:37)
[2025-01-08] MEDS: GABAPENTIN 300 MG CAPSULE PO ×2 (08:37→21:07)
[2025-01-08] MEDS: LOSARTAN POTASSIUM 50 MG TABLET PO (08:37)
[2025-01-08] MEDS: METOPROLOL TARTRATE 25 MG TABLET 12.5 MG PO ×2 (08:38→21:06)
[2025-01-08] MEDS: THIAMINE 100 MG TABLET PO (08:38)
--- NOTE | 2025-01-08 10:26 | PC.SOCIAL ---
Discharge planning: construction worker spoke to Sloane, chronometer adjuster at [facility] #[phone], and she stated that they are full right now, but this worker could send a referral for the pt on Saturday, since she is out of the office on Saturday for the President's Day holiday, and she might have a spot for the pt next week. construction worker also let Sloane know that pt has been to their facility before and Sloane did share that the pt is one that they would consider for accepting again. Social work to follow-up as needed.
--- NOTE | 2025-01-08 18:55 | PC.NURSE ---
End of Shift ([id number]): Patient pleasant and cooperative, A&O this shift. Patient was hypertensive this shift, all other VSS. SpO2 maintained above 90% on RA. Patient reports a headache, but declined PRN medication when asked. Tolerating regular diet, patient has been able to feed herself this shift. She has had 2 large loose incontinent BMs this shift.?Pills whole in applesauce. Tele: NSR.?
[2025-01-08] MEDS: ENOXAPARIN 40 MG/0.4 ML INJ SUBCUT (21:06)
[2025-01-08] MEDS: ATORVASTATIN CALCIUM 10 MG TABLET PO (21:07)
[2025-01-08] MEDS: NICOTINE 14 mg PATCH 1 PATCH TOPICAL (22:22)
[2025-01-09] VITALS (17 sets, daily range): BP systolic 146–168; BP diastolic 89–98; PULSE 69–81; RESP 12–18; TEMP 36.3–36.9; O2SAT 96–100
[2025-01-09] MEDS: 0.9 % SODIUM CHLORIDE 1000 ml 1,000 ML 100 ML IV ×3 (02:32→20:21)
--- NOTE | 2025-01-09 06:35 | PC.NURSE ---
Shift note: Pt is heavy A1 to BSC. Alert and oriented. At 2100, she complained of mild headache of 3/10. Tylenol given and was effective. She takes pill whole with applesauce. Patient had adequate sleep. No hallucination, tremor or neuro deficit recorded.
[2025-01-09 06:59] LABS: Basophils Percent Auto 1.4 % (0.0-3.0); Eosinophils Percent Auto 3.5 % (0.0-7.0); Hematocrit 31.2 % (33.0-51.0); Immature Granulocytes Pct Auto 0.3 %; Lymphocytes Percent Auto 42.2 % (20-44); Mean Corpuscular HGB Conc 32 gm/dL (32-36); Mean Corpuscular Hemoglobin 36 pg (26-34); Mean Corpuscular Volume 111 fL (80-100); Monocytes Percent Auto 13.2 % (0.0-11.0); Neutrophils Percent Auto 39.4 % (42.0-72.0); Platelet Count* 209 K/uL (140-440); Red Blood Count 2.82 m/uL (4.00-5.20)
[2025-01-09 07:00] LABS: Slide Review Reflex No
[2025-01-09 07:29] LABS: INR 1.03 (0.91-1.10); Prothrombin Time 14.1 Seconds
[2025-01-09 07:33] LABS: Chloride* 114 mmol/L (96-114)
[2025-01-09 07:34] LABS: Potassium* 4.9 mmol/L (3.6-5.1); Sodium* 140 mmol/L (135-149)
[2025-01-09 07:36] LABS: Anion Gap 12 mEq/L (7-15); Aspartate Amino Transferase* 33 U/L (12-35); Bilirubin Total* 0.4 mg/dL (0.1-1.5); Blood Urea Nitrogen* 11 mg/dL (7-30); Carbon Dioxide* 14 mmol/L (20-32); Creatinine* 0.5 mg/dL (0.5-1.5); Est. Creatinine Clearance* 50.97; Estimated Glomerular Filt Rate 105 ml/min; Total Protein* 6.6 g/dL (6.0-8.3)
[2025-01-09 07:37] LABS: Alanine Aminotransferase* 31 U/L (4-35); Alkaline Phosphatase* 73 U/L (40-150); Calcium* 9.1 mg/dL (8.4-10.6); Glucose* 86 mg/dL (60-115); Magnesium* 1.7 mg/dL (1.5-2.6)
[2025-01-09] MEDS: GABAPENTIN 300 MG CAPSULE PO ×2 (09:16→20:13)
[2025-01-09] MEDS: PSYLLIUM HUSK (WITH SUGAR) 12 GM PACKET PO (09:16)
[2025-01-09] MEDS: LOSARTAN POTASSIUM 50 MG TABLET PO (09:16)
[2025-01-09] MEDS: THIAMINE 100 MG TABLET PO (09:16)
[2025-01-09] MEDS: METOPROLOL TARTRATE 25 MG TABLET 12.5 MG PO ×2 (09:16→20:13)
[2025-01-09] MEDS: FOLIC ACID 1 MG TABLET PO (09:16)
[2025-01-09] MEDS: SERTRALINE 50 MG TABLET 100 MG PO (09:16)
[2025-01-09] MEDS: MAGNESIUM OXIDE 400 MG TABLET PO ×3 (09:16→20:13)
[2025-01-09] MEDS: MULTIVITAMIN/MINERALS 1 TABLET 1 TAB PO (09:16)
[2025-01-09] MEDS: POTASSIUM CHLORIDE 10 MEQ CAPSULE ER 40 MEQ PO ×2 (09:17→20:13)
--- NOTE | 2025-01-09 11:03 | PM.IMPN1 ---
Progress Note: A&P Assessment and plan (1) Acute alteration in mental status: Problem details: - confused and agitated on initial presentation to the ED, improved, then altered again post-seizure/ETOH withdrawal - head CT wnl in ER on 01/03/25 - possible post-ictal state vs metabolic encephalopathy vs ETOH withdrawal (most likely given presentation and history) - therapies following, was on prn 1:1 cares until 01/06/25 - close to baseline 01/08/25 Status: Acute (2) Seizure: Problem details: - 01/04/25, witnessed, presumably 2/2 ETOH withdrawal - reviewed by phone with Neurology 01/04: recommends MRI (results below), outpatient Neurology f/u - seizure precautions, no recurrence Status: Acute (3) MRI of brain abnormal: Problem details: - results below from formal radiology read (01/06/25) - reviewed with Neurosurgery 01/07, recommends repeat CT scan in 3-4 days (or day of discharge) to ensure stability, outpatient f/u - therapies following given CVA, TTE ordered - Stroke Neurology (Dr. Walker) visit 01/08: consider ASA (difficult given fall history, ETOH history, subdural), + statin, CTA head/neck (ordered 01/08/25) MRI results: 1. 7mm oval focus of diffusion signal abnormality in the right frontal lobe does not demonstrate diffusion restriction and most likely represents a subacute ischemic infarct. 2. Right hemispheric subdural collection measuring up to 3 mm in thickness suggestive of subacute subdural hematoma versus hygroma. Chronic right parietal alma hole. 3. Moderate parenchymal volume loss and chronic small vessel ischemic changes. Status: Acute (4) SVT (supraventricular tachycardia): Problem details: - noted 01/04/25 am after seizure, had hypomagnesemia and hypokalemia at that time - received Adenosine IV x1 - continue to follow on telemetry, has remained in sinus rhythm since episode of SVT 01/04/25 Status: Acute (5) Alcohol dependence: Problem details: - 1 rum and Coke daily 2-3 days per week per patient (per son, persistent daily use) - daily MVI, thiamine, folic acid - stigmata: severe fatty liver, macrocytic anemia, pancytopenia, elevated INR and bilirubin. Normal creatinine, no ascites. MELD 8 12/30/24 Status: Acute (6) Noncompliance: Problem details: - history of noncompliance, son had been appointed temporary guardian in 2023 (then ; he is working on re-instating given recurrent hospitalizations/ETOH use) Status: Acute (7) Hypomagnesemia: Problem details: - acute on chronic - resolved after replacement Status: Resolved (8) Acute hypokalemia: Problem details: - acute on chronic - resolved Status: Resolved (9) Fall: Problem details: - found down 01/03/25, possible fall, history of recurrent falls with rib fractures, hip fracture, subdural hematoma (02/2024) - ddx: mechanical, arrythmia, seizure - therapies following, completed a course of rehab at [place] February 2024 Status: Acute (10) Pulmonary infiltrate on radiologic exam: Problem details: - per CT scan 06/2024, chronic (results below) - appears stable on hospital day 1 from this perspective (normal WBC, no fever, no cough, no hypoxia) - IV Vancomycin, Cefepime, Azithromycin started 01/03/24, will d/c on 01/04 given reassuring clinical picture - BCx NGTD 01/04 -CT results from [facility] chart 07/18: 1. Clustered subcentimeter ground-glass opacities in the right upper lobe. Appearance is most consistent with focal infectious or inflammatory opacities. Consider follow-up chest CT in 3 months to document resolution. 2. No findings suspicious for metastatic disease in the chest abdomen or pelvis. 3. Nonspecific mild bowel wall thickening in the sigmoid colon could reflect a mild colitis. 4. 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 Recommend attention on follow-up. Status: Acute (11) Weakness: Problem details: - acute on chronic, worsened by diarrhea, poor nutritional status, metabolic encephalopathy - PT/OT following, social services counselor for discharge planning when medically stable Status: Acute (12) Hypertension: Problem details: - was not taking Losartan prior to admission (states it was d/c'd secondary to lower BPs, unclear when) - BP elevated (presumably 2/2 ETOH withdrawal), restarted Losartan 01/03 Status: Acute (13) Adenocarcinoma, colon: Problem details: -s/p robotic-assisted extended right hemicolectomy with ileotransverse anastomosis with CHRISTOPHER Bae, 07/02/24 Status: Acute (14) Diarrhea: Problem details: - h/o C Diff - negative C Diff on 12/14, d/c'd empiric Vancomycin at that time, negative again on 01/09. Start imodium Status: Acute (15) Lactic acidosis: Problem details: - RESOLVED - Lactate 12.5 initially, improved after IVF resuscitation - 7.8 on 01/04 after seizure - continue IVF resuscitation, follow lactate (normalized again 01/05/25) Status: Resolved (16) Asymptomatic bacteriuria: Problem details: - no antibiotic treatment needed Status: Acute Plan - Lovenox for ppx - plan per above - anticipate SNF when medically stable for d/c Subjective Time Seen by Provider: 09:40 Date Seen: 01/09/25 Interval history: Simona had no complaints. She was eating breakfast in the bedside chair. Exam Narrative: Exam Narrative: General: No acute distress. Awake, alert, oriented x3. Eating breakfast in the bedside chair. No pallor. No jaundice. Oropharynx: Clear. Mucous membranes moist. Cardiovascular: Regular rate and rhythm. No murmurs, gallops, or rubs. Respiratory: Clear to auscultation bilaterally. No wheezes or crackles. Extremities: No lower extremity edema. Const: Vital Signs, click to edit/add: Vital Signs - 24 hr 01/08/25 11:36 01/08/25 11:41 01/08/25 12:19 Temperature 97.8 F 97.8 F Pulse Rate Pulse Rate [Pulse Oximeter] 71 71 71 Respiratory Rate 18 18 Blood Pressure [Ri ght Arm] 167/101 H 167/101 H Pulse Oximetry 99 99 Oxygen Delivery Me thod Room Air Room Air Oxygen Flow Rate 01/08/25 15:09 01/08/25 15:39 01/08/25 15:40 Temperature 97.1 F L Pulse Rate 65 Pulse Rate [Pulse Oximeter] 68 Respiratory Rate 18 18 Blood Pressure [Ri ght Arm] 165/88 H Pulse Oximetry 98 98 Oxygen Delivery Me thod Room Air Room Air Oxygen Flow Rate 01/08/25 15:40 01/08/25 15:42 01/08/25 16:00 Temperature 97.1 F L Pulse Rate Pulse Rate [Pulse Oximeter] 68 68 68 Respiratory Rate 18 18 Blood Pressure [Ri ght Arm] 165/88 H Pulse Oximetry 98 Oxygen Delivery Me thod Room Air Oxygen Flow Rate 01/08/25 19:00 01/08/25 20:00 01/08/25 22:24 Temperature 98.5 F 98.5 F Pulse Rate Pulse Rate [Pulse Oximeter] 80 80 75 Respiratory Rate 18 18 Blood Pressure [Ri ght Arm] 153/91 H 134/87 Pulse Oximetry 98 96 Oxygen Delivery Me thod Room Air Room Air Oxygen Flow Rate 01/08/25 22:24 01/08/25 22:24 01/08/25 23:00 Temperature Pulse Rate 69 Pulse Rate [Pulse Oximeter] 80 Respiratory Rate 18 18 Blood Pressure [Ri ght Arm] Pulse Oximetry 98 Oxygen Delivery Me thod Room Air Oxygen Flow Rate 0 01/09/25 00:00 01/09/25 02:34 01/09/25 04:00 Temperature 98 F Pulse Rate Pulse Rate [Pulse Oximeter] 80 76 69 Respiratory Rate 18 Blood Pressure [Ri ght Arm] 168/96 H Pulse Oximetry 98 Oxygen Delivery Me thod Room Air Oxygen Flow Rate 0 01/09/25 07:00 Temperature Pulse Rate 72 Pulse Rate [Pulse Oximeter] Respiratory Rate Blood Pressure [Ri ght Arm] Pulse Oximetry Oxygen Delivery Me thod Oxygen Flow Rate Labs Labs: Laboratory Results - last 24 hr 01/09/25 06:20 WBC 3.70 L RBC 2.82 L Hgb 10.0 L Hct 31.2 L MCV 111 H MCH 36 H MCHC 32 RDW Coeff of Katina 13.0 Plt Count 209 Neut % (Auto) 39.4 L Lymph % (Auto) 42.2 [place] % (Auto) 13.2 H Eos % (Auto) 3.5 Baso % (Auto) 1.4 Neut # (Auto) 1.50 L Lymph # (Auto) 1.60 [place] # (Auto) 0.50 Eos # (Auto) 0.10 Baso # (Auto) 0.10 Abs Immat Gran (auto) 0.00 Imm/Tot Granulo (auto) 0.3 INR 1.03 Sodium 140 Potassium 4.9 Chloride 114 Carbon Dioxide 14 L Anion Gap 12 BUN 11 Creatinine 0.5 Estimated Creat Clear 50.97 Estimated GFR 105 Glucose 86 Calcium 9.1 Magnesium 1.7 Total Bilirubin 0.4 AST 33 ALT 31 Alkaline Phosphatase 73 Total Protein 6.6 Albumin 4.0
[2025-01-09 11:12] LABS: C.Difficile Negative (Negative); CDIFFEPI 027 PRESUMPTIVE NEGATIVE (Negative)
[2025-01-09] MEDS: LOPERAMIDE HCL 2 MG CAPSULE 4 MG PO (12:37)
--- NOTE | 2025-01-09 18:24 | PC.NURSE ---
End of Shift: Patient pleasant and cooperative, though it was saturday. Patient vitally stable, lung clear, BS WNL, IV running NS at 100. Patient denies pain. Patient CIWA 2. Patient 1 assist/walker, ambulating to the toilet. Patient up in chair for dinner, and had a protein beverage.
[2025-01-09] MEDS: ENOXAPARIN 40 MG/0.4 ML INJ SUBCUT (20:12)
[2025-01-09] MEDS: ATORVASTATIN CALCIUM 10 MG TABLET PO (20:13)
[2025-01-09] MEDS: SODIUM CHLORIDE 0.9 % (FLUSH) 10 ML SYRINGE 5 ML IVF (20:14)
[2025-01-09] MEDS: NICOTINE 14 mg PATCH 1 PATCH TOPICAL (23:19)
[2025-01-10] VITALS (12 sets, daily range): BP systolic 127–166; BP diastolic 86–106; PULSE 67–82; RESP 16–18; TEMP 36.4–36.8; O2SAT 95–99
[2025-01-10] MEDS: LOPERAMIDE HCL 2 MG CAPSULE PO ×3 (05:57→13:46)
[2025-01-10] MEDS: 0.9 % SODIUM CHLORIDE 1000 ml 1,000 ML 100 ML IV ×2 (09:55→19:55)
[2025-01-10] MEDS: THIAMINE 100 MG TABLET PO (09:55)
[2025-01-10] MEDS: MULTIVITAMIN/MINERALS 1 TABLET 1 TAB PO (09:55)
[2025-01-10] MEDS: METOPROLOL TARTRATE 25 MG TABLET 12.5 MG PO ×2 (09:55→20:45)
[2025-01-10] MEDS: GABAPENTIN 300 MG CAPSULE PO ×2 (09:56→20:45)
[2025-01-10] MEDS: FOLIC ACID 1 MG TABLET PO (09:56)
[2025-01-10] MEDS: SERTRALINE 50 MG TABLET 100 MG PO (09:56)
[2025-01-10] MEDS: MAGNESIUM OXIDE 400 MG TABLET PO ×3 (09:56→20:46)
[2025-01-10] MEDS: LOSARTAN POTASSIUM 50 MG TABLET PO (09:56)
[2025-01-10] MEDS: POTASSIUM CHLORIDE 10 MEQ CAPSULE ER 40 MEQ PO ×2 (09:57→20:46)
[2025-01-10] MEDS: SODIUM CHLORIDE 0.9 % (FLUSH) 10 ML SYRINGE 5 ML IVF (09:57)
--- NOTE | 2025-01-10 13:42 | REH.OT ---
Pt refusing OT today, stating too tired from recent and persistent bout of diarrhea. Not C-diff per chart. Continuing to Rec TCU at [place].
[2025-01-10] MEDS: ONDANSETRON ODT 4 MG TAB PO (13:46)
--- NOTE | 2025-01-10 15:36 | PM.IMPN1 ---
Progress Note: A&P Assessment and plan (1) Acute alteration in mental status: Problem details: - confused and agitated on initial presentation to the ED, improved, then altered again post-seizure/ETOH withdrawal - head CT wnl in ER on 01/03/25 - possible post-ictal state vs metabolic encephalopathy vs ETOH withdrawal (most likely given presentation and history) - therapies following, was on prn 1:1 cares until 01/06/25 - close to baseline 01/08/25 Status: Resolved (2) Seizure: Problem details: - 01/04/25, witnessed, presumably 2/2 ETOH withdrawal - reviewed by phone with Neurology 01/04: recommends MRI (results below), outpatient Neurology f/u - seizure precautions, no recurrence - no further seizure activity noted Status: Acute (3) MRI of brain abnormal: Problem details: - results below from formal radiology read (01/06/25) - reviewed with Neurosurgery 01/07, recommends repeat CT scan in 3-4 days (or day of discharge) to ensure stability, outpatient f/u - therapies following given CVA, TTE ordered - Stroke Neurology (Dr. Walker) visit 01/08: consider ASA (difficult given fall history, ETOH history, subdural), + statin, CTA head/neck (ordered 01/08/25) MRI results: 1. 7mm oval focus of diffusion signal abnormality in the right frontal lobe does not demonstrate diffusion restriction and most likely represents a subacute ischemic infarct. 2. Right hemispheric subdural collection measuring up to 3 mm in thickness suggestive of subacute subdural hematoma versus hygroma. Chronic right parietal alma hole. 3. Moderate parenchymal volume loss and chronic small vessel ischemic changes. Status: Acute (4) SVT (supraventricular tachycardia): Problem details: - noted 01/04/25 am after seizure, had hypomagnesemia and hypokalemia at that time - received Adenosine IV x1 - continue to follow on telemetry, has remained in sinus rhythm since episode of SVT 01/04/25 Status: Acute (5) Alcohol dependence: Problem details: - 1 rum and Coke daily 2-3 days per week per patient (per son, persistent daily use) - daily MVI, thiamine, folic acid - stigmata: severe fatty liver, macrocytic anemia, pancytopenia, elevated INR and bilirubin. Normal creatinine, no ascites. MELD 8 12/30/24 Status: Acute (6) Noncompliance: Problem details: - history of noncompliance, son had been appointed temporary guardian in 2023 (then ; he is working on re-instating given recurrent hospitalizations/ETOH use) Status: Acute (7) Hypomagnesemia: Problem details: - acute on chronic - resolved after replacement Status: Resolved (8) Acute hypokalemia: Problem details: - acute on chronic - resolved Status: Resolved (9) Fall: Problem details: - found down 01/03/25, possible fall, history of recurrent falls with rib fractures, hip fracture, subdural hematoma (02/2024) - ddx: mechanical, arrythmia, seizure - therapies following, completed a course of rehab at [place] February 2024 Status: Acute (10) Pulmonary infiltrate on radiologic exam: Problem details: - per CT scan 06/2024, chronic (results below) - appears stable on hospital day 1 from this perspective (normal WBC, no fever, no cough, no hypoxia) - IV Vancomycin, Cefepime, Azithromycin started 01/03/24, will d/c on 01/04 given reassuring clinical picture - BCx NGTD 01/04 -CT results from [facility] chart 07/18: 1. Clustered subcentimeter ground-glass opacities in the right upper lobe. Appearance is most consistent with focal infectious or inflammatory opacities. Consider follow-up chest CT in 3 months to document resolution. 2. No findings suspicious for metastatic disease in the chest abdomen or pelvis. 3. Nonspecific mild bowel wall thickening in the sigmoid colon could reflect a mild colitis. 4. 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 Recommend attention on follow-up. Status: Acute (11) Weakness: Problem details: - acute on chronic, worsened by diarrhea, poor nutritional status, metabolic encephalopathy - PT/OT following, social work supervisor for discharge planning when medically stable Status: Acute (12) Hypertension: Problem details: - was not taking Losartan prior to admission (states it was d/c'd secondary to lower BPs, unclear when) - BP elevated (presumably 2/2 ETOH withdrawal), restarted Losartan 01/03 Status: Acute (13) Adenocarcinoma, colon: Problem details: -s/p robotic-assisted extended right hemicolectomy with ileotransverse anastomosis with CHRISTOPHER Bae, 07/02/24 Status: Acute (14) Diarrhea: Problem details: - h/o C Diff - negative C Diff on 12/14, d/c'd empiric Vancomycin at that time, negative again on 01/09. Start imodium Status: Acute (15) Lactic acidosis: Problem details: - RESOLVED - Lactate 12.5 initially, improved after IVF resuscitation - 7.8 on 01/04 after seizure - continue IVF resuscitation, follow lactate (normalized again 01/05/25) Status: Resolved (16) Asymptomatic bacteriuria: Problem details: - E coli - no antibiotic treatment needed Status: Acute Plan - Lovenox for ppx - plan per above - work on d/c to SNF. [facility] is full for the weekend. Resent referral Saturday. No safe d/c option at present. Subjective Time Seen by Provider: 11:05 Date Seen: 01/10/25 Interval history: Simona stated that she feels well. I discussed need for SNF. Exam Narrative: Exam Narrative: General: No acute distress. Awake, alert, oriented. Eating breakfast in the bedside chair. No pallor. No jaundice. Oropharynx: Clear. Mucous membranes moist. Cardiovascular: Regular rate and rhythm. No murmurs, gallops, or rubs. Respiratory: Clear to auscultation bilaterally. No wheezes or crackles. Extremities: No lower extremity edema. Const: Vital Signs, click to edit/add: Vital Signs - 24 hr 01/09/25 15:53 01/09/25 20:10 01/09/25 20:11 Temperature 97.4 F L 97.4 F L Pulse Rate 73 Pulse Rate [Pulse Oximeter] 80 80 Respiratory Rate 16 16 Blood Pressure [Ri ght Arm] 152/89 H 152/89 H Pulse Oximetry 98 98 Oxygen Delivery Me thod Room Air Room Air Oxygen Flow Rate 0 01/09/25 20:44 01/09/25 22:27 01/09/25 22:28 Temperature 98.3 F 98.3 F Pulse Rate 78 Pulse Rate [Pulse Oximeter] 81 81 Respiratory Rate 16 16 Blood Pressure [Ri ght Arm] 167/98 H 167/98 H Pulse Oximetry 98 98 Oxygen Delivery Me thod Room Air Room Air Oxygen Flow Rate 0 01/09/25 22:34 01/09/25 22:36 01/10/25 02:18 Temperature 98.1 F Pulse Rate Pulse Rate [Pulse Oximeter] 81 82 Respiratory Rate 16 16 Blood Pressure [Ri ght Arm] 166/106 H Pulse Oximetry 98 97 Oxygen Delivery Me thod Room Air Room Air Oxygen Flow Rate 0 01/10/25 02:22 01/10/25 07:00 01/10/25 07:37 Temperature 98.1 F Pulse Rate 67 Pulse Rate [Pulse Oximeter] 82 69 Respiratory Rate 16 18 Blood Pressure [Ri ght Arm] 166/106 H Pulse Oximetry 97 Oxygen Delivery Me thod Room Air Oxygen Flow Rate 0 01/10/25 07:37 01/10/25 07:37 01/10/25 08:00 Temperature 97.6 F 97.6 F Pulse Rate Pulse Rate [Pulse Oximeter] 69 69 Respiratory Rate 18 18 18 Blood Pressure [Ri ght Arm] 127/86 127/86 Pulse Oximetry 99 99 99 Oxygen Delivery Me thod Room Air Room Air Room Air Oxygen Flow Rate 0 0 0 01/10/25 13:30 Temperature 98 F Pulse Rate Pulse Rate [Pulse Oximeter] 71 Respiratory Rate 18 Blood Pressure [Ri ght Arm] 152/98 H Pulse Oximetry 98 Oxygen Delivery Me thod Room Air Oxygen Flow Rate 0
--- NOTE | 2025-01-10 17:53 | PC.NURSE ---
PATIENT REPORTS INTERMITTENT ABDOMINAL CRAMPING AND CONTINUES WITH DIARRHEA THAT INCREASES IN FREQUENCY AFTER EATING. BOTH INCONTINENT AND CONTINENT STOOLS. UP WITH A1, WALKER AND GAIT BELT TO RECLINER AND BATHROOM. REPORTS DECREASED APPETITE AND ANXIETY ABOUT EATING RELATED TO INCREASE IN ABDOMINAL CRAMPING AND DIARRHEA. ALERT AND ORIENTED. PLEASANT AND COOPERATIVE.
[2025-01-10] MEDS: ATORVASTATIN CALCIUM 10 MG TABLET PO (20:46)
[2025-01-10] MEDS: ENOXAPARIN 40 MG/0.4 ML INJ SUBCUT (20:47)
[2025-01-10] MEDS: NICOTINE 14 mg PATCH 1 PATCH TOPICAL (20:47)
[2025-01-10] MEDS: PSYLLIUM HUSK (WITH SUGAR) 12 GM PACKET PO (20:47)
[2025-01-11] VITALS (8 sets, daily range): BP systolic 124–155; BP diastolic 8–92; PULSE 63–87; RESP 16–18; TEMP 36.4–37.1; O2SAT 97–100
--- NOTE | 2025-01-11 04:07 | PC.NURSE ---
Shift note: Pt is doing well with SBA using walker to the BR. She appeared a bit unsteady and required close monitoring when moving. No BM for the entire 12 hour shift, no headache, hallucination or abd pain. Alert and oriented, vitally stable. Pt had adequate sleep.
[2025-01-11] MEDS: 0.9 % SODIUM CHLORIDE 1000 ml 1,000 ML 100 ML IV (06:18)
[2025-01-11] MEDS: FOLIC ACID 1 MG TABLET PO (09:17)
[2025-01-11] MEDS: GABAPENTIN 300 MG CAPSULE PO ×2 (09:17→21:18)
[2025-01-11] MEDS: LOSARTAN POTASSIUM 50 MG TABLET PO (09:17)
[2025-01-11] MEDS: METOPROLOL TARTRATE 25 MG TABLET 12.5 MG PO ×2 (09:17→21:18)
[2025-01-11] MEDS: MULTIVITAMIN/MINERALS 1 TABLET 1 TAB PO (09:17)
[2025-01-11] MEDS: SERTRALINE 50 MG TABLET 100 MG PO (09:17)
[2025-01-11] MEDS: LOPERAMIDE HCL 2 MG CAPSULE PO ×2 (09:17→14:18)
[2025-01-11] MEDS: MAGNESIUM OXIDE 400 MG TABLET PO ×3 (09:17→21:18)
[2025-01-11] MEDS: THIAMINE 100 MG TABLET PO (09:17)
[2025-01-11] MEDS: POTASSIUM CHLORIDE 10 MEQ CAPSULE ER 40 MEQ PO ×2 (09:17→21:18)
[2025-01-11] MEDS: SODIUM CHLORIDE 0.9 % (FLUSH) 10 ML SYRINGE 5 ML IVF ×2 (09:18→21:19)
--- NOTE | 2025-01-11 11:34 | PC.SOCIAL ---
Addendum entered by BRANDY Montes 01/11/25 15:17: Discharge planning: harvest worker spoke to Guerrero from [facility] who had questions from the nursing staff at [facility] about pt's stools. Guerrero asked if pt had been tested for C-Diff given her history of having it. Pt did test negative for C-Diff during this hospitalization on the and and this worker gave Guerrero that information. Guerrero also shared that staff at [facility] wanted to know how her stools were now(today) since she has had diarrhea during this hospital stay and the room at [facility] that she is being reviewed for is a shared room. harvest worker could not get a hold of the charge nurse on duty, so looked through pt's nursing notes and told Guerrero that pt is still having loose stools and it seems to happen more often that not after she eats. Guerrero will relay this information to the staff at [facility]. Social work to follow-up as needed. Addendum entered by BRANDY Montes 01/11/25 14:03: Discharge planning: harvest worker received the following message back from Ebony at [facility]: We will decline Simona Velázquez at this time due to needing CD Treatment.? She's been noted to be non-compliant.? Son's guardianship has and she's a current smoker. Guerrero from [facility] is still reviewing pt's referral for his facilities; including [facility] in [place]. Social work to follow-up as needed. Addendum entered by BRANDY Montes 01/11/25 12:31: Discharge planning: harvest worker also sent pt's referral to Ebony with [facility] to see if any of her facilities may be willing to accept the pt. Ebony did respond back saying that [facility] is full right now and [facility] has an Influena A outbreak right now and is not accepting any patients for admission. Ebony will send the referral to her other facilities, as the pt did state that she is willing to go to the [facility] for rehab and surrounding towns. Social work to follow-up as needed. Original Note: Discharge planning: Pt reports to this worker this morning that she does not want to go back to [place] for rehab/treatment, but she is willing to go to a facility for short-term rehab. harvest worker will send a referral to [facility] to see if any of his facilities may be able to accept her for admission. Social work to follow-up as needed.
--- NOTE | 2025-01-11 13:45 | PM.IMPN1 ---
Progress Note: A&P Assessment and plan (1) Acute alteration in mental status: Problem details: - confused and agitated on initial presentation to the ED, improved, then altered again post-seizure/ETOH withdrawal - head CT wnl in ER on 01/03/25 - possible post-ictal state vs metabolic encephalopathy vs ETOH withdrawal (most likely given presentation and history) - therapies following, was on prn 1:1 cares until 01/06/25 - close to baseline 01/08/25 - 01/11/25 back to baseline Status: Resolved (2) Seizure: Problem details: - 01/04/25, witnessed, presumably 2/2 ETOH withdrawal - reviewed by phone with Neurology 01/04: recommends MRI (results below), outpatient Neurology f/u - seizure precautions, no recurrence - no further seizure activity noted Status: Acute (3) MRI of brain abnormal: Problem details: - results below from formal radiology read (01/06/25) - reviewed with Neurosurgery 01/07, recommends repeat CT scan in 3-4 days (or day of discharge) to ensure stability, outpatient f/u - therapies following given CVA, TTE ordered - Stroke Neurology (Dr. Walker) visit 01/08: consider ASA (difficult given fall history, ETOH history, subdural), + statin, CTA head/neck (ordered 01/08/25) MRI results: 1. 7mm oval focus of diffusion signal abnormality in the right frontal lobe does not demonstrate diffusion restriction and most likely represents a subacute ischemic infarct. 2. Right hemispheric subdural collection measuring up to 3 mm in thickness suggestive of subacute subdural hematoma versus hygroma. Chronic right parietal alma hole. 3. Moderate parenchymal volume loss and chronic small vessel ischemic changes. Status: Acute (4) SVT (supraventricular tachycardia): Problem details: - noted 01/04/25 am after seizure, had hypomagnesemia and hypokalemia at that time - received Adenosine IV x1 - has remained in sinus rhythm since episode of SVT 01/04/25 - d/c telemetry Status: Acute (5) Alcohol dependence: Problem details: - 1 rum and Coke daily 2-3 days per week per patient (per son, persistent daily use) - daily MVI, thiamine, folic acid - stigmata: severe fatty liver, macrocytic anemia, pancytopenia, elevated INR and bilirubin. Normal creatinine, no ascites. MELD 8 12/30/24 Status: Acute (6) Noncompliance: Problem details: - history of noncompliance, son had been appointed temporary guardian in 2023 (then ; he is working on re-instating given recurrent hospitalizations/ETOH use) Status: Acute (7) Hypomagnesemia: Problem details: - acute on chronic - resolved after replacement Status: Resolved (8) Acute hypokalemia: Problem details: - acute on chronic - resolved Status: Resolved (9) Fall: Problem details: - found down 01/03/25, possible fall, history of recurrent falls with rib fractures, hip fracture, subdural hematoma (02/2024) - ddx: mechanical, arrythmia, seizure - therapies following, completed a course of rehab at [facility] February 2024 Status: Acute (10) Pulmonary infiltrate on radiologic exam: Problem details: - per CT scan 06/2024, chronic (results below) - appears stable on hospital day 1 from this perspective (normal WBC, no fever, no cough, no hypoxia) - IV Vancomycin, Cefepime, Azithromycin started 01/03/24, will d/c on 01/04 given reassuring clinical picture - BCx NGTD 01/04 -CT results from [facility] chart 07/18: 1. Clustered subcentimeter ground-glass opacities in the right upper lobe. Appearance is most consistent with focal infectious or inflammatory opacities. Consider follow-up chest CT in 3 months to document resolution. 2. No findings suspicious for metastatic disease in the chest abdomen or pelvis. 3. Nonspecific mild bowel wall thickening in the sigmoid colon could reflect a mild colitis. 4. 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 Recommend attention on follow-up. 01/03/25 CT chest/abd/pelvis: - Subcentimeter ground-glass opacity in the right upper lobe, likely infectious/inflammatory. - Pancreas: Redemonstration of 2 homogeneously hypo enhancing lesions in the posterior aspect of the pancreatic head and uncinate process, similar compared to prior examination, likely side branch IPMNs. -01/03 was treated with IV antibiotics. Consider f/u chest CT in 2 months to document resolution Status: Acute (11) Weakness: Problem details: - acute on chronic, worsened by diarrhea, poor nutritional status, metabolic encephalopathy - PT/OT following, social work nurse for discharge planning - [facility] office not open today. No safe discharge plan for today. Status: Acute (12) Hypertension: Problem details: - was not taking Losartan prior to admission (states it was d/c'd secondary to lower BPs, unclear when) - BP elevated (presumably 2/2 ETOH withdrawal), restarted Losartan 01/03 Status: Acute (13) Adenocarcinoma, colon: Problem details: -s/p robotic-assisted extended right hemicolectomy with ileotransverse anastomosis with Dr. Gallo, [facility], 07/02/24 Status: Acute (14) Diarrhea: Problem details: - h/o C Diff - negative C Diff on 12/14, d/c'd empiric Vancomycin at that time, negative again on 01/09. Imodium Status: Acute (15) Lactic acidosis: Problem details: - RESOLVED - Lactate 12.5 initially, improved after IVF resuscitation - 7.8 on 01/04 after seizure - continue IVF resuscitation, follow lactate (normalized again 01/05/25) Status: Resolved (16) Asymptomatic bacteriuria: Problem details: - E coli - no antibiotic treatment needed Status: Acute Plan - Lovenox for ppx - plan per above - work on d/c to SNF. [facility] is full for the weekend. Resend referral Saturday. No safe d/c option at present. Subjective Time Seen by Provider: 08:05 Date Seen: 01/11/25 Interval history: Simona has no complaints or concerns. Exam Narrative: Exam Narrative: General: No acute distress. Awake, alert, oriented. Eating breakfast in the bedside chair. No pallor. No jaundice. Oropharynx: Clear. Mucous membranes moist. Cardiovascular: Regular rate and rhythm. No murmurs, gallops, or rubs. Respiratory: Clear to auscultation bilaterally. No wheezes or crackles. Extremities: No lower extremity edema. Const: Vital Signs, click to edit/add: Vital Signs - 24 hr 01/10/25 15:00 01/10/25 17:00 01/10/25 17:00 Temperature Pulse Rate 67 Pulse Rate [Pulse Oximeter] 70 Respiratory Rate 18 18 Blood Pressure [Ri ght Arm] Pulse Oximetry 96 Oxygen Delivery Me thod Room Air Oxygen Flow Rate 0 01/10/25 17:00 01/10/25 19:00 01/10/25 20:53 Temperature 98.1 F 97.8 F 97.8 F Pulse Rate Pulse Rate [Pulse Oximeter] 71 75 75 Respiratory Rate 18 18 18 Blood Pressure [Ri ght Arm] 155/94 H 127/88 127/88 Pulse Oximetry 95 97 97 Oxygen Delivery Me thod Room Air Room Air Room Air Oxygen Flow Rate 0 0 01/10/25 22:24 01/10/25 22:24 01/10/25 22:24 Temperature 98.2 F Pulse Rate Pulse Rate [Pulse Oximeter] 79 79 Respiratory Rate 18 18 18 Blood Pressure [Ri ght Arm] 151/97 H Pulse Oximetry 97 97 Oxygen Delivery Me thod Room Air Room Air Oxygen Flow Rate 0 01/10/25 22:44 01/11/25 00:44 01/11/25 03:00 Temperature 98.7 F 97.6 F Pulse Rate 77 Pulse Rate [Pulse Oximeter] 87 69 Respiratory Rate 18 18 Blood Pressure [Ri ght Arm] 155/87 H 126/92 H Pulse Oximetry 97 97 Oxygen Delivery Me thod Room Air Room Air Oxygen Flow Rate 0 0 01/11/25 05:00 01/11/25 07:00 01/11/25 07:00 Temperature 97.6 F Pulse Rate Pulse Rate [Pulse Oximeter] 69 69 Respiratory Rate 18 18 18 Blood Pressure [Ri ght Arm] 126/92 H Pulse Oximetry 97 99 Oxygen Delivery Me thod Room Air Room Air Oxygen Flow Rate 0 01/11/25 07:00 01/11/25 07:00 Temperature 97.6 F Pulse Rate 63 Pulse Rate [Pulse Oximeter] 69 Respiratory Rate 18 Blood Pressure [Ri ght Arm] 154/88 H Pulse Oximetry 99 Oxygen Delivery Me thod Room Air Oxygen Flow Rate 0
--- NOTE | 2025-01-11 18:54 | PC.NURSE ---
End of shift: patient alert and oriented. VSS. on RA and afebrile this shift. tolerating a reg. diet. Patient working with Pt/ot and ambulating hallway with walker/GB. One assist. Patient denies N/V/SOB. PRN Imodium administered x2 for loose stools. Patient up to chair for meals and had a shower today. Nicotine patch fell off during shower. discarded in med room. Plan: Jasmin is assessing.
[2025-01-11] MEDS: ACETAMINOPHEN 325 MG TABLET 650 MG PO (20:22)
[2025-01-11] MEDS: NICOTINE 14 mg PATCH 1 PATCH TOPICAL (21:17)
[2025-01-11] MEDS: ENOXAPARIN 40 MG/0.4 ML INJ SUBCUT (21:18)
[2025-01-11] MEDS: ATORVASTATIN CALCIUM 10 MG TABLET PO (21:18)
[2025-01-12 01:35] VITALS: BP 163/98; PULSE 71; RESP 16; TEMP 36.7; O2SAT 100
--- NOTE | 2025-01-12 05:14 | PC.NURSE ---
Pt alert and oriented x3. Afebrile. Pt reports 5/10 headache, pain managed with PRN Tylenol. Pt is up SBA with walker and gait belt, voiding and tolerating a regular diet. Pt had 1 large loose/soft incontinent bowel movement overnight.
[2025-01-12 07:00] VITALS: BP 141/88; PULSE 80; RESP 16; TEMP 36.4; O2SAT 99
[2025-01-12] MEDS: POTASSIUM CHLORIDE 10 MEQ CAPSULE ER 40 MEQ PO (09:18)
[2025-01-12] MEDS: MAGNESIUM OXIDE 400 MG TABLET PO (09:19)
[2025-01-12] MEDS: GABAPENTIN 300 MG CAPSULE PO (09:19)
[2025-01-12] MEDS: SERTRALINE 50 MG TABLET 100 MG PO (09:19)
[2025-01-12] MEDS: THIAMINE 100 MG TABLET PO (09:19)
[2025-01-12] MEDS: METOPROLOL TARTRATE 25 MG TABLET 12.5 MG PO (09:19)
[2025-01-12] MEDS: LOPERAMIDE HCL 2 MG CAPSULE PO (09:19)
[2025-01-12] MEDS: LOSARTAN POTASSIUM 50 MG TABLET PO (09:19)
[2025-01-12] MEDS: MULTIVITAMIN/MINERALS 1 TABLET 1 TAB PO (09:19)
[2025-01-12] MEDS: FOLIC ACID 1 MG TABLET PO (09:19)
[2025-01-12] MEDS: SODIUM CHLORIDE 0.9 % (FLUSH) 10 ML SYRINGE 5 ML IVF (09:20)
--- NOTE | 2025-01-12 11:11 | P.DS_ITS ---
DS: Providers Provider Time Seen by Provider: : Date Seen: 01/12/25 Date of admission: 01/04/25 08:07 Primary care physician: LIDIA CAMPOS DO Admitting Clinician: Saud Bolivar MD Consults: 01/03/25 21:42 Consult to Nutrition [CONS] Routine Comment: Reason for consult:: Nutritional Consult Consult to Occupational Therapy [CONS] Routine Comment: Reason(s) for OT Consult:: Evaluate and Treat Any Restrictions?:: No Restrictions Consult to Physical Therapy [CONS] Routine Comment: Reason(s) for PT Consult:: Evaluate and Treat Any Restrictions?:: No Restrictions Consult to [employer] [CONS] Routine Comment: Reason for Consult:: Discharge Planning Needs Attending Physician on discharge: Nydia Horton MD Date of Discharge: 01/12/25 DS: Diagnosis Discharge Diagnosis (1) Acute alteration in mental status: Status: Resolved Problem details: - confused and agitated on initial presentation to the ED, improved, then altered again post-seizure/ETOH withdrawal - head CT wnl in ER on 01/03/25 - possible post-ictal state vs metabolic encephalopathy vs ETOH withdrawal (most likely given presentation and history) - therapies following, was on prn 1:1 cares until 01/06/25 - close to baseline 01/08/25 - 01/11/25 back to baseline (2) Seizure: Status: Acute Problem details: - 01/04/25, witnessed, presumably 2/2 ETOH withdrawal - reviewed by phone with Neurology 01/04: recommends MRI (results below), outpatient Neurology f/u - seizure precautions, no recurrence - no further seizure activity noted (3) MRI of brain abnormal: Status: Acute Problem details: - results below from formal radiology read (01/06/25) - reviewed with Neurosurgery 01/07, recommends repeat CT scan in 3-4 days (or day of discharge) to ensure stability, outpatient f/u - therapies following given CVA, TTE ordered - Stroke Neurology (Dr. Walker) visit 01/08: consider ASA (difficult given fall history, ETOH history, subdural), + statin, CTA head/neck (ordered 01/08/25): - considert ASA 81mg, but understand pt is high risk fall - therapies - neurosurgery following - normotensive - LDL goal <70 - no anticonvulsants indicated. - no drive for 3 months - alcohol abstinence - thiamine replacement - f/u with stroke clinic MRI results: 1. 7mm oval focus of diffusion signal abnormality in the right frontal lobe does not demonstrate diffusion restriction and most likely represents a subacute ischemic infarct. 2. Right hemispheric subdural collection measuring up to 3 mm in thickness suggestive of subacute subdural hematoma versus hygroma. Chronic right parietal alma hole. 3. Moderate parenchymal volume loss and chronic small vessel ischemic changes. (4) SVT (supraventricular tachycardia): Status: Acute Problem details: - noted 01/04/25 am after seizure, had hypomagnesemia and hypokalemia at that time - received Adenosine IV x1 - has remained in sinus rhythm since episode of SVT 01/04/25 - d/c telemetry (5) Alcohol dependence: Status: Acute Problem details: - 1 rum and Coke daily 2-3 days per week per patient (per son, persistent daily use) - daily MVI, thiamine, folic acid - stigmata: severe fatty liver, macrocytic anemia, pancytopenia, elevated INR and bilirubin. Normal creatinine, no ascites. MELD 8 12/30/24 (6) Noncompliance: Status: Acute Problem details: - history of noncompliance, son had been appointed temporary guardian in 2023 (then ; he is working on re-instating given recurrent hospitalizations/ETOH use) (7) Hypomagnesemia: Status: Resolved Problem details: 01/09 Mg 1.7 (8) Acute hypokalemia: Status: Resolved Problem details: - acute on chronic - resolved 01/09 K 4.9 (9) Fall: Status: Acute Problem details: - found down 01/03/25, possible fall, history of recurrent falls with rib fractures, hip fracture, subdural hematoma (02/2024) - ddx: mechanical, arrythmia, seizure - therapies following, completed a course of rehab at [facility] February 2024 - d/c to [facility] for SNF/PT/OT (10) Pulmonary infiltrate on radiologic exam: Status: Acute Problem details: - per CT scan 06/2024, chronic (results below) - appears stable on hospital day 1 from this perspective (normal WBC, no fever, no cough, no hypoxia) - IV Vancomycin, Cefepime, Azithromycin started 01/03/24, will d/c on 01/04 given reassuring clinical picture - BCx NGTD 01/04 -CT results from [facility] chart 07/18: 1. Clustered subcentimeter ground-glass opacities in the right upper lobe. Appearance is most consistent with focal infectious or inflammatory opacities. Consider follow-up chest CT in 3 months to document resolution. 2. No findings suspicious for metastatic disease in the chest abdomen or pelvis. 3. Nonspecific mild bowel wall thickening in the sigmoid colon could reflect a mild colitis. 4. 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 Recommend attention on follow-up. 01/03/25 CT chest/abd/pelvis: - Subcentimeter ground-glass opacity in the right upper lobe, likely infectious/inflammatory. - Pancreas: Redemonstration of 2 homogeneously hypo enhancing lesions in the posterior aspect of the pancreatic head and uncinate process, similar compared to prior examination, likely side branch IPMNs. -01/03 was treated with IV antibiotics. Consider f/u chest CT in 2 months to document resolution (11) Weakness: Status: Acute Problem details: - acute on chronic, worsened by diarrhea, poor nutritional status, metabolic encephalopathy - PT/OT following, social work therapist for discharge planning - D/c to [facility], operated by [facility] (12) Hypertension: Status: Acute Problem details: - was not taking Losartan prior to admission (states it was d/c'd secondary to lower BPs, unclear when) - BP elevated (presumably 2/2 ETOH withdrawal), restarted Losartan 01/03 (13) Adenocarcinoma, colon: Status: Acute Problem details: -s/p robotic-assisted extended right hemicolectomy with ileotransverse anastomosis with Dr. Gallo, [facility], 07/02/24 (14) Diarrhea: Status: Acute Problem details: - h/o C Diff - h/o chronic diarrhea: saw GI 06/30/2024 for diarrhea and IVANA, colonoscopy prior to colectomy. No specific recommendations at that time. Has not seen GI since then - negative C Diff on 12/14, d/c'd empiric Vancomycin at that time, negative again on 01/09. Schedule Imodium. Potentially from refeeding since patient mostly drinks EtOH, poor oral intake otherwise at home. Will have patient f/u with GI as outpatient. (15) Lactic acidosis: Status: Resolved Problem details: - RESOLVED - Lactate 12.5 initially, improved after IVF resuscitation - 7.8 on 2/10 after seizure - continue IVF resuscitation, follow lactate (normalized again 01/05/25) (16) Asymptomatic bacteriuria: Status: Acute Problem details: - E coli - no antibiotic treatment needed DS: Summary Hospital Course Hospital Course: Per H&P: Simona Velázquez is a 64 year old woman who lives alone was found down on the floor of the hallway of her apartment building by neighbor earlier today and called 911. Reportedly she was disoriented and knew her name only. Upon arrival patient initially refused EMS transport to the emergency department. Having determined that patient did not have medical decision-making capacity, she was placed on a transport hold and brought to the emergency department for further assessment. When patient 1st arrived at the [facility] Emergency Department she was still somewhat confused. Even so she was very consistent in her stating that she did not recall anything that transpired which culminated in her arriving in the emergency department. As best as she can recall she was at the store earlier today to buy some soup. Beyond that she does not recall any details how she arrived here in the emergency department. Does not recall being on the floor. Does not recall tripping or falling. As best as she can remember she had been doing well the last several days. She does note that she developed diarrhea for the past 3-4 days. Denies blood loss in association with this. Had 4-5 episodes daily. Onset was somewhat sudden and with little warning to get to the bathroom in time. Denies fevers, rigors, diaphoresis. Denies abdominal pain, nausea, vomiting. Denies dyspnea, chest heaviness, pressure, tightness, or pain. Denies orthostasis. Claims to have been eating well and drinking well. No urinary tract symptoms. Did have dry hacky cough for the past week. Still smoking about a quarter pack cigarettes daily. Acknowledges drinking 1 rum and Coke drink 2 or 3 times per week. Claims the last time she had such a drink was this past Saturday 2 days ago. Hospital day 2 Simona had a generalized tonic clonic seizure that lasted approximately 1 minute while she was talking with the physician. Rapid response was called and she was given lorazepam, phenobarbital, magnesium and a normal saline bolus. She was noted to be in SVT at the time as well for which she was given adenosine and this resolved. Labs revealed an elevated lactate and she was transition to CCU status with one-to-one nursing care. This was presumed to be an alcohol withdrawal seizure. Neurology was consulted who recommended treating alcohol withdrawal and obtaining an MRI when able to do so. She continued to require treatment for alcohol withdrawal for few more days. MRI revealed subacute stroke. Due to her fall risk, aspirin was not started. If her risk of fall decreases as she rehabilitates, aspirin should be considered for stroke prevention. She initially had acute on chronic diarrhea which improved, C diff was negative. Diarrhea did however persists and C diff was repeated later in her hospital stay which is still negative. She is responding to Imodium in is discharged with scheduled Imodium a day and I recommend follow- up with GI for diarrhea. Please see diagnoses above for full details. She is discharged in improved and stable condition to [facility] for rehab today. Time Spent with Patient Time attestation: Total time spent providing and/or coordinating discharge services: Today I spent 60 minutes seeing the patient, reviewing Expanse and EPIC notes/diagnostics/labs, discussing the care plan with our care team that includes social work, PT/OT, pharmacy, RT, fdc and documenting my impressions and plan in the medical record and completing the discharge orders. Quality: Stroke Reason for not prescribing antithrombotic at DC: Medical contraindication Exam Narrative: Exam Narrative: General: No acute distress. Awake, alert, oriented. No pallor. No jaundice. Oropharynx: Clear. Mucous membranes moist. Cardiovascular: Regular rate and rhythm. No murmurs, gallops, or rubs. Respiratory: Clear to auscultation bilaterally. No wheezes or crackles. Extremities: No lower extremity edema. Const: Vital Signs, click to edit/add: Vital Signs - 24 hr 01/11/25 15:00 01/11/25 15:00 01/11/25 15:00 Temperature 98.1 F Pulse Rate [Pulse Oximeter] 77 77 Respiratory Rate 16 16 16 Blood Pressure [Ri ght Arm] 134/8 L Pulse Oximetry 100 100 Oxygen Delivery Me thod Room Air Room Air Oxygen Flow Rate 0 01/11/25 20:16 01/11/25 22:37 01/11/25 22:37 Temperature 98.6 F 97.8 F Pulse Rate [Pulse Oximeter] 78 71 Respiratory Rate 16 16 16 Blood Pressure [Ri ght Arm] 124/68 142/84 H Pulse Oximetry 98 98 98 Oxygen Delivery Me thod Room Air Room Air Room Air Oxygen Flow Rate 0 0 01/12/25 01:35 01/12/25 07:00 01/12/25 07:00 Temperature 98.0 F Pulse Rate [Pulse Oximeter] 71 80 Respiratory Rate 16 16 16 Blood Pressure [Ri ght Arm] 163/98 H Pulse Oximetry 100 99 Oxygen Delivery Me thod Room Air Room Air Oxygen Flow Rate 0 0 01/12/25 07:00 Temperature 97.6 F Pulse Rate [Pulse Oximeter] 80 Respiratory Rate 16 Blood Pressure [Ri ght Arm] 141/88 H Pulse Oximetry 99 Oxygen Delivery Me thod Room Air Oxygen Flow Rate 0 DS: Data Data Completed and Pending Completed studies during hospitalization: 01/03/2025 EKG: Supraventricular tachycardia with occasional premature ventricular complexes, 156 beats per minute, marked ST abnormality, possible lateral subendocardial injury. 01/03/2025 EKG: Normal sinus rhythm, 82 beats per minute, normal EKG. 01/04/2025 EKG: Supraventricular tachycardia with occasional premature ventricular complexes, 161 beats per minute, rightward axis deviation. Marked ST abnormality, possible inferior subendocardial injury. 01/04/2025 EKG: Normal sinus rhythm, 79 beats per minute, nonspecific ST wave abnormality, prolonged QT interval. 01/07/2025 echocardiogram: Normal LV size, borderline wall thickness, normal global systolic function with an estimated EF of 55-60%. Mildly enlarged left atrium. Right ventricular cavity size is normal, global systolic RV function is normal. The aortic valve is normal, no stenosis and no regurgitation. The mitral valve is normal, trace mitral regurgitation. Ordering Physician: Dipesh Larkin M.D. Date of Service: 01/03/25 Procedure(s): XR chest 1V portable Accession Number(s): [id number] cc: Dipesh Larkin M.D.; LIDIA CAMPOS D.O.~ For Patients: As a result of the Century Cures Act, medical imaging exams and procedure reports are released immediately into your electronic medical record. You may view this report before your referring provider. If you have questions, please contact your health care provider. INDICATION: : Hypertension, fall, tachycardia COMPARISON: Chest radiograph on December 22, 2023 TECHNIQUE: One view(s) of the chest FINDINGS: The cardiomediastinal silhouette and pulmonary vasculature are unremarkable. There is no focal airspace consolidation, pleural effusion, or pneumothorax. Likely nipple shadows projecting over the left lung base and right upper abdomen No acute fracture or malalignment. Remote, healed bilateral rib fractures. IMPRESSION: No acute cardiopulmonary process or acute traumatic injury. Dictated by Олег Helton MD @ 01/03/2025 4:56:06 PM (Electronically Signed) Ordering Physician: Dipesh Larkin M.D. Date of Service: 01/03/25 Procedure(s): CT cervical spine wo con Accession Number(s): [id number] cc: Dipesh Larkin M.D.; LIDIA CAMPOS D.O.~ For Patients: As a result of the Cures Act, medical imaging exams and procedure reports are released immediately into your electronic medical record. You may view this report before your referring provider. If you have questions, please contact your health care provider. Indication: Fall, neck pain Technique: Noncontrast axial CT of the cervical spine with coronal and sagittal reformats are provided. Comparison: CT 12/22/2023 Findings: There is cervical kyphosis. Stable grade 1 anterolisthesis at C3-4 and C4-5 and C7-T1. Severe interspace narrowing at C5-6 and moderate interspace narrowing at C6-7. The craniocervical junction is unremarkable. Advanced degenerative changes at the anterior atlantoaxial articulation. C1-2: No significant spinal canal stenosis. C2-3: Moderate facet arthrosis. No significant spinal canal stenosis or neural foramen narrowing. C3-4: Grade 1 anterolisthesis. Advanced right facet arthrosis. No significant spinal canal stenosis or neural foraminal narrowing. C4-5: Grade 1 anterolisthesis and uncovering of the disc. Mild spinal canal narrowing. Advanced left facet arthrosis. No significant neural foramen narrowing. C5-6: Disc osteophyte complex results in mild-moderate spinal canal stenosis. Uncovertebral joint hypertrophy results in moderate right and mild left neural foraminal stenosis. C6-7: Disc osteophyte complex and uncovertebral joint hypertrophy. Severe left and moderate right neural foraminal stenosis. Mild spinal canal stenosis. Advanced right facet arthrosis. C7-T1: No significant spinal canal stenosis or neural foraminal narrowing. The lung apices are clear. Impression: 1. No convincing radiographic evidence of acute osseous injury. 2. Scattered degenerative changes of the cervical spine. Please note that all CT scans at this facility use dose modulation, iterative reconstruction, and/or weight-based dosing when appropriate to reduce radiation dose to as low as reasonably achievable. Dictated by Rambo Carr MD @ 01/03/2025 6:47:13 PM (Electronically Signed) Ordering Physician: Dipesh Larkin M.D. Date of Service: 01/03/25 Procedure(s): CT chest abdomen pelv w con Accession Number(s): [id number] cc: Dipesh Larkin M.D.; LIDIA CAMPOS D.O.~ For Patients: As a result of the Century Cures Act, medical imaging exams and procedure reports are released immediately into your electronic medical record. You may view this report before your referring provider. If you have questions, please contact your health care provider. Indication: Fall, weakness, tachycardia, lactic acidosis, possible PE, history of colon cancer Technique: CT chest/abdomen/pelvis with IV contrast 63 mL Isovue 370 Comparison: CT abdomen/pelvis on December 22, 2023 Findings: CHEST Airway: Normal tracheobronchial tree. Lungs: No focal airspace consolidation, pleural effusion, or pneumothorax. Subcentimeter ground-glass opacity in the right upper lobe, likely infectious/inflammatory. Unchanged basilar linear scarring. Pleura: No pleural effusion. No pneumothorax. Lymph nodes: No thoracic adenopathy. Mediastinum: No pneumomediastinum. No mass. Heart and great vessels: No pericardial effusion. Normal cardiac chamber size. Scattered atherosclerotic plaques. No aortic aneurysm. Normal caliber main pulmonary artery. No appreciable pulmonary embolism; however, the examination is not protocol specifically for the evaluation of the pulmonary arteries. Chest wall: Normal. No masses. ABDOMEN AND PELVIS Liver: Severe hepatic steatosis. No focal hepatic lesions. Gallbladder and bile ducts: Normal gallbladder. No bile duct dilation. Pancreas: Redemonstration of 2 homogeneously hypo enhancing lesions in the posterior aspect of the pancreatic head and uncinate process, similar compared to prior examination, likely side branch IPMNs. Spleen: Normal. Adrenal glands: Normal. Kidneys: Normal parenchyma. No cyst or solid mass. No calculi. No urinary tract dilation. Urinary bladder: Normal. Pelvis: No cyst or mass. Vessels: Atherosclerotic vascular calcifications. No aortic aneurysm. Separate origins of the common hepatic and splenic artery from the upper abdominal aorta. Mesenteric vasculature is widely patent. Portal venous system is patent. Bowel: No evidence of bowel obstruction or inflammation. Postsurgical changes of right colon resection. Few scattered colonic diverticuli without diverticulitis. Lymph nodes: No adenopathy. Peritoneum: No ascites. Abdominal wall: Fat containing left inguinal hernia. Small fat containing umbilical hernia. 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 Remote right posterior 12th rib fracture with callus formation. Old healed left rib fractures with solid heterotopic ossification between the 8th and 9th lateral left ribs. Remote fracture of the right femoral greater trochanter with nonunion. Remote fractures of the right transverse process of the L1, L2, and L3 vertebral bodies. No acute, displaced fracture or malalignment. Impression: 1. No acute fracture or malalignment. Multiple remote fractures as detailed above. 2. No appreciable pulmonary embolism. 3. Subcentimeter ground-glass opacity in the right upper lobe, likely infectious/inflammatory. 4. Additional incidental findings as detailed above. Please note that all CT scans at this facility use dose modulation, iterative reconstruction, and/or weight-based dosing when appropriate to reduce radiation dose to as low as reasonably achievable. Dictated by Олег Helton MD @ 01/03/2025 7:07:14 PM (Electronically Signed) Ordering Physician: Dipesh Larkin M.D. Date of Service: 01/03/25 Procedure(s): CT head/brain wo [facility] Accession Number(s): [id number] cc: Dipesh Larkin M.D.; LIDIA CAMPOS D.O.~ For Patients: As a result of the Century Cures Act, medical imaging exams and procedure reports are released immediately into your electronic medical record. You may view this report before your referring provider. If you have questions, please contact your health care provider. INDICATION: Fall, altered mental status TECHNIQUE: CT of the head without contrast. Coronal and sagittal reformats. Bone and soft tissue algorithms. COMPARISON: CT 03/06/2024 FINDINGS: No acute intracranial hemorrhage or extra-axial collection. No evidence of acute cortical infarction. Chronic right frontal alma hole. Resolution of the right hemispheric subdural hematoma noted on the 03/06/2024 study. No mass effect or midline shift. Mild generalized parenchymal volume loss. Mild regions of decreased attenuation within the periventricular and subcortical white matter of both cerebral hemispheres most likely reflect chronic microvascular ischemic disease and age related change in this patient. Vascular calcifications within the carotid siphons. Orbital contents are normal. No calvarial fractures. No lytic or sclerotic osseous lesions within the calvarium or skull base. Scalp and other imaged soft tissue structures are normal. Mastoid air cells are clear. Mild polypoid mucosal thickening in the right ethmoid air cells and mild mucosal thickening in the maxillary sinuses. IMPRESSION: 1. No acute intracranial abnormality. Resolution of the right hemispheric subdural hematoma noted on the 03/06/2024 study. 2. Small right frontal scalp contusion. 3. 5 mm rightward midline shift may be on a congenital basis as there is no space-occupying lesion to account for the shift. Please note that all CT scans at this facility use dose modulation, iterative reconstruction, and/or weight-based dosing when appropriate to reduce radiation dose to as low as reasonably achievable. Dictated by Rambo Carr MD @ 01/03/2025 6:43:14 PM (Electronically Signed) Ordering Physician: Astrid Valentino M.D. Date of Service: 01/06/25 Procedure(s): MR head/brain wo con Accession Number(s): [id number] cc: Astrid Valentino M.D.; LIDIA CAMPOS D.O.~ For Patients: As a result of the Century Cures Act, medical imaging exams and procedure reports are released immediately into your electronic medical record. You may view this report before your referring provider. If you have questions, please contact your health care provider. Indication: Seizure Technique: Noncontrast sagittal T1 weighted, axial FLAIR, axial T2 weighted, and axial diffusion weighted sequences are provided. Comparison: CT head 01/03/2025 Findings: There is a 7 millimeter focus of T2 diffusion signal abnormality in the right frontal lobe centrum semiovale without signal loss on ADC map most likely due to subacute ischemic infarct. No mass effect or midline shift. No hydrocephalus. Moderate generalized parenchymal volume loss. Diffuse patchy and scattered foci of T2 prolongation in the supratentorial subcortical and periventricular white matter are nonspecific but typical for chronic small vessel ischemic changes. Chronic right parietal alma hole. There is a right hemispheric subdural collection measuring up to 3 mm in thickness that could represent subdural hematoma versus hygroma. No significant mass effect on the underlying parenchyma. Expected intracranial vascular flow voids are preserved. No pathologic susceptibility artifacts. Small retention cyst versus mucosal thickening in the right anterior ethmoid air cells. The orbits are unremarkable. The mastoid air cells are clear. Impression: 1. A 7 mm oval focus of diffusion signal abnormality in the right frontal lobe does not demonstrate diffusion restriction and most likely represents a subacute ischemic infarct. 2. Right hemispheric subdural collection measuring up to 3 mm in thickness suggestive of subacute subdural hematoma versus hygroma. Chronic right parietal alma hole. 3. Moderate parenchymal volume loss and chronic small vessel ischemic changes. Dictated by Rambo Carr MD @ 01/06/2025 7:14:34 PM (Electronically Signed) Ordering Physician: Astrid Valentino M.D. Date of Service: 01/08/25 Procedure(s): CT angio head Accession Number(s): [id number] cc: Astrid Valentino M.D.; LIDIA CAMPOS D.O.~ For Patients: As a result of the Cures Act, medical imaging exams and procedure reports are released immediately into your electronic medical record. You may view this report before your referring provider. If you have questions, please contact your health care provider. CLINICAL HISTORY: Acute neurological deficit. TECHNIQUE: Standard helical CT image acquisition through the head following the administration of intravenous contrast was performed. 3D and MIP reconstructions were performed at a separate workstation and permanently archived. COMPARISON: None available. FINDINGS: No intracranial proximal large vessel occlusion or flow-limiting luminal stenosis. No evidence of cerebral aneurysm. No findings to suggest an arterial-venous shunting lesion. IMPRESSION: No intracranial proximal large vessel occlusion, flow-limiting luminal stenosis, or cerebral aneurysm. Please note that all CT scans at this facility use dose modulation, iterative reconstruction, and/or weight-based dosing when appropriate to reduce radiation dose to as low as reasonably achievable. Dictated by Gal Tang MD @ 01/08/2025 4:20:15 PM (Electronically Signed) Ordering Physician: Astrid Valentino M.D. Date of Service: 01/08/25 Procedure(s): CT angio neck Accession Number(s): [id number] cc: Astrid Valentino M.D.; LIDIA CAMPOS D.O.~ For Patients: As a result of the Century Cures Act, medical imaging exams and procedure reports are released immediately into your electronic medical record. You may view this report before your referring provider. If you have questions, please contact your health care provider. CLINICAL HISTORY: Acute neurological deficit. TECHNIQUE: Standard helical CT image acquisition through the neck was performed after intravenous contrast bolus enhancement. 3D and MIP reconstructions were performed at a separate workstation and permanently archived. COMPARISON: None available. FINDINGS: The origins of the great vessels from the aortic arch are patent. The common carotid arteries are patent. No significant luminal stenoses of the proximal ICAs by NASCET criteria. The more distal cervical segments of the ICAs are patent. The origins and cervical segments of the vertebral arteries are patent. IMPRESSION: Patent cervical arterial vasculature without hemodynamically significant luminal stenosis. Please note that all CT scans at this facility use dose modulation, iterative reconstruction, and/or weight-based dosing when appropriate to reduce radiation dose to as low as reasonably achievable. Dictated by Gal Tang MD @ 01/08/2025 4:19:28 PM (Electronically Signed) Discharge Plan Discharge Disposition: [facility] Date of Admission: 01/04/25 08:07 Attending Provider on Discharge: Nydia Horton Primary Care Provider: LIDIA CAMPOS Condition: Improved Anticipated Discharge Date/Time: 01/12/25 11:39 Discharge Medications: New loperamide 2 mg Capsule 2 mg PO 6XD Qty: 180 0RF Rx Instructions: (Cdiff neg 11/08/25) Hold for constipation atorvastatin 10 mg Tablet 10 mg PO HS Qty: 30 0RF gabapentin 300 mg Capsule 300 mg PO BID Qty: 60 0RF sertraline 50 mg Tablet 100 mg PO DAILY Qty: 60 0RF Metamucil (with sugar) 3.4 gram Powder In Packet 1 tsp PO BID Qty: 30 0RF Continued metoprolol tartrate 25 mg Tablet 12.5 mg PO BID potassium chloride 20 mEq tablet,ER particles/crystals 40 meq PO BID Qty: 180 3RF melatonin 1 mg tablet 5 mg PO HS PRN Patient Comments: [NO ORIGINAL SIG] Children's Multivitamin Tablet,Chewable 1 tab PO DAILY Patient Comments: [NO ORIGINAL SIG] thiamine HCl (vitamin B1) 100 mg tablet 100 mg PO DAILY nicotine 14 mg/24 hr Patch 24 Hour 1 patch topical Q24H Qty: 15 0RF Discontinued dextromethorphan-guaifenesin 10-100 mg/5 mL syrup 10 ml PO Q4H PRN Patient Comments: [NO ORIGINAL SIG] Discharge Orders: Discharge Order (Routine); Ordered 01/12/25 Ordered By: Nydia Horton Additional Instructions: - See [facility] in 2-4 weeks for acute on chronic diarrhea - See stroke neurology for f/u stroke in 2-3 weeks - No driving for three months - Abstain from drinking alcohol Activity Level: Up with assist Discharge Diet: Regular Follow Up Appointments: LIDIA CAMPOS DO [Primary Care Provider] - Forms: Medical Referral Source Info Instructions Admit to: SNF Discharge Potential: Fair Length of Stay: 30-90 days Can use facility standing orders?: Yes Code Status: Full Code TEDs: N/A Rehab Potential: Fair Therapy: Physical Therapy and Occupational Therapy Therapy Orders: Evaluate and Treat Oxygen: No Urinary Catheter: No Lab Orders: CBC, CMP, magnesium in one week, Chest CT in 2 months to f/u pulmonary infiltrate Orders are good >30 days: No Signature: Nydia Horton MD
--- NOTE | 2025-01-12 13:33 | PC.NURSE ---
Discharge: patient discharged today at 1310 to [facility] accompanied by son. IV removed intact. Discharge paperwork signed. Nurse to Nurse given at 1230. Patient's VSS. RA, tolerating a reg diet. Patient denies N/V/SOB. Diarrhea reported x1. PRN Loperamide administered.
--- NOTE | 2025-01-12 16:42 | PC.SOCIAL ---
Discharge planning: Pt was accepted to [facility] today for short-term rehab to a shared room/shared bathroom. Pt accepted the room and her son will transport her today at 1pm. Discharge orders were secure emailed to [facility] at [facility]. Pre-admission screening was also completed and secure emailed to [facility]. [id number]. Social work to follow-up as needed.
== END 2025-01-12 13:10 | DRG 896 ==
LOC: ED 17:27 → MEDSURG 21:11
PROVIDERS: Admitting Provider Internal Medicine; Emergency Provider Emergency Medicine; PCP Student in an Organized Health Care Education/Training Program; Visit Provider Family Medicine
DX: F10.231 Alcohol dependence with withdrawal delirium (principal); G93.41 Metabolic encephalopathy; I63.89 Other cerebral infarction; A04.71 Enterocolitis due to Clostridium difficile, recurrent; I47.10 Supraventricular tachycardia, unspecified; C18.9 Malignant neoplasm of colon, unspecified; Z68.1 Body mass index [BMI] 19.9 or less, adult; K70.0 Alcoholic fatty liver; K70.9 Alcoholic liver disease, unspecified; E87.6 Hypokalemia; E83.42 Hypomagnesemia; E63.9 Nutritional deficiency, unspecified; R91.8 Other nonspecific abnormal finding of lung field; R90.89 Other abnormal findings on diagnostic imaging of central nervous system; K86.9 Disease of pancreas, unspecified; R82.71 Bacteriuria; B96.20 Unspecified Escherichia coli [E. coli] as the cause of diseases classified elsewhere; R45.1 Restlessness and agitation; R41.82 Altered mental status, unspecified; F17.210 Nicotine dependence, cigarettes, uncomplicated; Z91.198 Patient's noncompliance with other medical treatment and regimen for other reason; I10 Essential (primary) hypertension; W19.XXXA Unspecified fall, initial encounter; Z91.81 History of falling; Z87.820 Personal history of traumatic brain injury; Z86.711 Personal history of pulmonary embolism; Z87.81 Personal history of (healed) traumatic fracture; I25.2 Old myocardial infarction
CPT/HCPCS: 36415; 51701; 70450; 70496; 70498; 70551; 71045; 71260; 72125; 74177; 80048; 80053; 80061; 80306; 81001; 82077; 82330; 82550; 82803; 83036; 83605; 83690; 83735; 83880; 84100; 84132; 84443; 84484; 85025; 85027; 85610; 86140; 87040; 87045; 87046; 87086; 87427; 87493; 87631; 93005; 93306; 97110; 97112; 97116; 97162; 97166; 97530; 97535; 99285; 99291; G0427; A9153; A9270; G0378; J0153; J0456; J0692; J1650; J2060; J2560; J3372; J3475; J3480; J7030; J7050; Q9967; S4990

== ENCOUNTER 2025-06-15 17:31 | Outpatient (CLI) | payer MEDICAID, SELFPAY | END 2025-06-15 17:32 | disposition home or self-care (01) | PROVIDERS: PCP Student in an Organized Health Care Education/Training Program; Visit Provider Family Medicine | DX: F10.129 Alcohol abuse with intoxication, unspecified (principal); E86.0 Dehydration; R11.2 Nausea with vomiting, unspecified | CPT/HCPCS: A0425; A0427 ==

== ENCOUNTER 2025-06-15 18:21 | Emergency (ER) | payer MEDICAID, SELFPAY ==
[2025-06-15] VITALS (20 sets, daily range): BP systolic 134–197; BP diastolic 83–101; PULSE 84–110; RESP 11–30; TEMP 35.7; O2SAT 94–100
--- OUTSIDE RECORDS SUMMARY | 2025-06-15 18:24 | XMS_ITS | Clinical Summary ---
Author Organization [facility] Address [address] [place] [id number] Care Team Providers Care Wire Stitcher Machine Name Role Phone Alexi Keating RN Unavailable Unavailable Kim Gallo MD Unavailable [phone] Pcp, No Primary Care Provider Unavailabl e [...] type, unspecified whether angina present, unspecified whether mi'kmaq or transplanted heart TAKE 1/2 TABLET(12.5 MG) [...] Date Resolved Date Hypokalemia 08/04/2022 12/31/2023 Immunizations Immunization Administration Dates Next Due COVID-19 vaccine (Moderna [...] Health Maintenance Due Date Last Done Comments Tetanus booster 1971 Depression screening for age 12+ 1972 HIV for age 15-65 1975 Hepatitis C screening for age 18-79 1978 Pneumococcal series for age 50+ (1 of 2 - PCV) 1979 Pap test for age 21-65 1981 Lipids for age 45-75 2005 Mammogram for age 45-75 2005 Zoster (shingles) series for age 50+ (1 of 2) 2010 RSV vaccine for adults or (1 - Risk 60-74 years 1-dose series) 2020 COVID-19 vaccine series ( season) 2024 11/09/2021, 03/10/2021, 02/09/2021 BMI (ht and wt on same day) for age 18+ 05/11/2025 05/11/2024, 09/06/2023, 07/26/2023, Additional history exists Influenza Vaccine (#1) 2025 Colonoscopy through age 75 07/01/2034 07/01/2024, Hepatitis B series for 19+ Aged Out N o longer eligible based on patient's age to complete this topic Medical Devices Implanted Type Area Tube Dispatcher Device Identifier Shelf Expiration Date Model / Serial / Lot Screw Neuro 4mm Matrixneuro Slf Drill Titnm - [id number] Implanted:Qty: 3 on 04/02/2024 by Juan Francisco Santizo MBChB at [facility] Right: Cranium [employer] CMF [id number] 4.01 / / [place] Hole Cover Implanted:Qty: 1 on 04/02/2024 by Juan Francisco Santizo MBChB at [facility] Right: Cranium [id number] / / [...] Procedure: Colonoscopy Proceduralist: Arron Harper MD - [facility] Digestive Health Indications/Pre-Op Diagnosis: History of advanced adenomatous polyps, 1 of which in the ascending colon containedcancer; patient is scheduled for right hemicolectomy tomorrow Medications: MAC Procedure Description: The patient had risks, benefits and alternatives explained to andgave informed consent. The patient had a stable cardiopulmonary status and judged an adequate candidate for sedation. The endoscope -[id number] was passed through the anus andadvanced to [...] 03/23/2024 03/23/[address] [place] [id number] [facility] [address] [place] [id number] [facility] Advance Directives * Full Code (Latest [...] Preferences, Provider to review later Care Teams Wire Stitcher Machine Relationship Specialty Start Date End Date Pcp, No . PCP - General 12/31/23 Alexi Keating, RN Nurse Navigator - Oncology Registered Nurse 10/08/23 Kim Gallo MD [id number] [facility] [address] [id number] Surgery - Colon and Rectal 10/08/23
--- NOTE | 2025-06-15 18:53 | ED.GENADULT ---
HPI - General Adult General Chief complaint: Nausea/Vomiting Stated complaint: vomiting, dehydration, nausea Time Seen by Provider: 06/15/25 18:33 History of Present Illness HPI narrative: Lives at a sober house in [place]. Went to her apt yesterday afternoon to clean it out as she is not living there anymore. Her son found her today in the apartment, in bed. She was diaphoretic, vomiting, and complaining of body aches. Patient reports having rum yesterday while at her apartment, reporting this much while holding her thumb and index finger 5 apart. She notes she had a 5mg THC gummy yesterday as well. EMS administered 4mg zofran IVP, ~100mL NS. 64-year-old woman presenting to the emergency department EMS. She has been initiated on normal saline although sounds as though IV infiltrated and given 4 mg of Zofran by EMS. Does have a history of alcohol abuse and dependence. Is currently apparently living at a sober house in [place]. Went to her apartment yesterday afternoon to clean it out. She says she was just so tired. She laid down yesterday around 10:00 p.m. and did not wake up until 5 p.m. today when her son went to find her. She does endorse having some rum yesterday in her apartment but she said did not become intoxicated. She did also have a THC gummy yesterday. Apparently was discovered diaphoretic with vomiting and all over body aches. No fever measured. Denies chest pain or shortness of breath. Denies abdominal pain. She does not think she needs anything more for nausea as she is no longer vomiting. Does not endorse any hematochezia. No diarrhea noted. (son later suggesting that had quite a bit to drink) Related Data Home Medications ?Medication ?Instructions ?Recorded ?Confirmed metoprolol tartrate 25 mg tablet 12.5 mg PO BID 02/03/24 01/06/25 melatonin 1 mg tablet 5 mg PO HS PRN 01/06/25 01/06/25 pediatric multivitamin no.42 1 tab PO DAILY 01/06/25 01/06/25 (Children's Multivitamin chewable tablet) thiamine HCl (vitamin B1) 100 mg 100 mg PO DAILY 01/06/25 01/06/25 tablet Previous Rx's ?Medication ?Instructions ?Recorded nicotine 14 mg/24 hr daily 1 patch topical Q24H #15 ea 11/07/23 transdermal patch potassium chloride 20 mEq 40 meq (2 x 20 mEq) PO BID #180 02/05/24 tablet,extended release(part/cryst) tabs atorvastatin 10 mg tablet 10 mg PO HS #30 tabs 01/12/25 gabapentin 300 mg capsule 300 mg PO BID #60 caps 01/12/25 loperamide 2 mg capsule 2 mg PO 6XD #180 caps 01/12/25 psyllium husk (with sugar) 3.4 1 tsp PO BID #30 ea 01/12/25 gram oral powder packet (Metamucil (with sugar)) sertraline 50 mg tablet 100 mg (2 x 50 mg) PO DAILY #60 01/12/25 tabs Allergies Allergy/AdvReac Type Severity Reaction Status Date / Time Penicillins Allergy Unknown Verified 06/15/25 18:38 Review of Systems Status of ROS: Reports: 6 or more systems reviewed and unremarkable except as noted in History and below [facility] Medical History C. difficile diarrhea ?A04.72 - Enterocolitis due to Clostridium difficile, not specified as recurrent (ICD-10) Adenocarcinoma, colon ?C18.9 - Malignant neoplasm of colon, unspecified (ICD-10) Fracture of greater trochanter of right femur ?S72.111A - Displaced fracture of greater trochanter of right femur, initial encounter for closed fracture (ICD-10) Noncompliance ?Z91.199 - Patient's noncompliance with other medical treatment and regimen due to unspecified reason (ICD-10) Colon cancer ?C18.9 - Malignant neoplasm of colon, unspecified (ICD-10) Noncompliance by refusing intervention or support ?Z91.199 - Patient's noncompliance with other medical treatment and regimen due to unspecified reason (ICD-10) Alcohol dependence ?F10.20 - Alcohol dependence, uncomplicated (ICD-10) Alcoholic liver disease ?K70.9 - Alcoholic liver disease, unspecified (ICD-10) Alcohol dependence with acute alcoholic intoxication with complication ?F10.229 - Alcohol dependence with intoxication, unspecified (ICD-10) Multiple rib fractures ?S22.49XA - Multiple fractures of ribs, unspecified side, initial encounter for closed fracture (ICD-10) Elevated TSH ?R79.89 - Other specified abnormal findings of blood chemistry (ICD-10) Macrocytic anemia ?D53.9 - Nutritional anemia, unspecified (ICD-10) Macrocytosis ?D75.89 - Other specified diseases of blood and blood-forming organs (ICD-10) Syncope ?R55 - Syncope and collapse (ICD-10) Surgical History History of alma hole surgery ?Z98.890 - Other specified postprocedural states (ICD-10) Social History What is your current living situation?: I presently have a place to live Problems where you live: no known problems Problems where you live details: no known problems currently. Pt reported mice a couple of weeks ago. In the past 12 months, utilities in danger of being shut off: no In past 12 months, lack of transportation kept you from medical appts, meetings, work, or getting things needed for daily living: no In the past 12 mos, have been you worried that your food would run out before you had money to buy more?: never true In the past 12 mos, the food you bought just didn't last and you didn't have money to buy more?: never true Highest level of school completed/degree received: Associate degree: occupational, technical, vocational program Smoking Status: Current every day smoker What tobacco products do you use: cigarettes Smoking packs per day: 0.25 Smoking cigarettes per day: 5.0 Years smoked: 44 Smoking pack-years: 11.00 Smoking quit date/years: <= 15 years ago Do you use any of these nicotine containing products: None Second hand tobacco smoke exposure: No How often do you have a drink containing alcohol: never How many standard drinks containing alcohol do you have on a typical day: 1 or 2 How often do you have six or more drinks on one occasion: Never AUDIT-C Alcohol total score: 0 Non-prescribed substance use: denies use Caffeine: Yes (tea) How often does anyone, including family, friends and others, physically hurt you: never How often does anyone, including family, friends and others, insult or talk down to you: never How often does anyone, including family, friends and others, threaten you with harm: never How often does anyone, including family, friends and others, scream or curse at you: never service: No Exam Narrative: Exam Narrative: Pleasant. Emesis bag at hand. Looks little uncomfortable. Conversing easily, quickly. Breathing easily. Lungs appear clear. Heart in mildly elevated rate in a regular rhythm. Abdomen is soft and nontender. Extremities are well perfused without edema. Oropharynx is quite sticky to dry. Const: Vital Signs, click to edit/add: Vital Signs - 24 hr 06/15/25 18:38 06/15/25 19:24 06/15/25 19:30 Temperature 96.2 F L Pulse Rate 86 Pulse Rate [Pulse Oximeter] 93 Respiratory Rate 22 20 27 H Blood Pressure Blood Pressure [Ri ght Upper Arm] 152/96 H Pulse Oximetry 98 100 Oxygen Delivery Me od Room Air 06/15/25 19:31 06/15/25 19:36 06/15/25 19:45 Temperature Pulse Rate Pulse Rate [Pulse Oximeter] Respiratory Rate 12 11 L Blood Pressure 134/99 H Blood Pressure [Ri ght Upper Arm] Pulse Oximetry 94 Oxygen Delivery Me thod 06/15/25 20:00 06/15/25 20:01 06/15/25 20:15 Temperature Pulse Rate 85 84 Pulse Rate [Pulse Oximeter] Respiratory Rate 15 12 16 Blood Pressure 146/83 H Blood Pressure [Ri ght Upper Arm] Pulse Oximetry 99 98 Oxygen Delivery Hi thod 06/15/25 20:30 06/15/25 20:45 06/15/25 21:00 Temperature Pulse Rate 93 87 87 Pulse Rate [Pulse Oximeter] Respiratory Rate 13 11 L 15 Blood Pressure Blood Pressure [Ri ght Upper Arm] Pulse Oximetry 100 99 99 Oxygen Delivery Me thod 06/15/25 21:01 06/15/25 21:16 06/15/25 21:30 Temperature Pulse Rate 87 110 H 87 Pulse Rate [Pulse Oximeter] Respiratory Rate 21 16 16 Blood Pressure 156/88 H Blood Pressure [Ri ght Upper Arm] Pulse Oximetry 99 95 100 Oxygen Delivery Me thod 06/15/25 21:45 06/15/25 22:00 Temperature Pulse Rate 91 Pulse Rate [Pulse Oximeter] Respiratory Rate 30 H 24 Blood Pressure Blood Pressure [Ri ght Upper Arm] Pulse Oximetry 100 Oxygen Delivery Hi thod Documenting provider has reviewed patient's vital signs: yes Course Vital Signs Vital signs: Initial Vital Signs Temperature 96.2 F L 06/15/25 18:38 Temperature Source Temporal Artery Scan 06/15/25 18:38 Pulse Rate 93 06/15/25 18:38 Respiratory Rate 22 06/15/25 18:38 Blood Pressure 152/96 H 06/15/25 18:38 Blood Pressure Mean 114 H 06/15/25 18:38 Blood Pressure Position Semi-Fowlers 06/15/25 18:38 Pulse Oximetry 98 06/15/25 18:38 Oxygen Delivery Method Room Air 06/15/25 18:38 Vital Signs Temperature 96.2 F L 06/15/25 18:38 Pulse Rate 93 06/15/25 18:38 Respiratory Rate 22 06/15/25 18:38 Blood Pressure 152/96 H 06/15/25 18:38 Pulse Oximetry 98 06/15/25 18:38 Oxygen Delivery Method Room Air 06/15/25 18:38 Temperature 96.2 F L 06/15/25 18:38 Pulse Rate 91 06/15/25 22:00 Respiratory Rate 24 06/15/25 22:00 Blood Pressure 156/88 H 06/15/25 21:01 Pulse Oximetry 100 06/15/25 22:00 Oxygen Delivery Method Room Air 06/15/25 18:38 Medications Administered Medications: Discontinued Medications Generic Name Dose Route Start Last Admin Trade Name Freq PRN Reason Stop Dose Admin Acetaminophen 1,000 mg 06/15/25 20:59 06/15/25 21:02 Acetaminophen 500 Mg Tablet PO 06/15/25 21:00 1,000 mg ONCE ONE Administration Sodium Chloride 1,000 mls @ 1,000 mls/hr 06/15/25 19:26 06/15/25 20:52 0.9 % Sodium Chloride 1000 Ml IV 06/15/25 20:25 Infused .Q1H ONE Infusion Lactated Ringer's 1,000 mls @ 1,000 mls/hr 06/15/25 20:15 06/15/25 22:12 Lactated Ringers 1000 Ml IV 06/15/25 21:14 Infused .Q1H ONE Infusion Metoclopramide HCl 10 mg/ 102 mls @ 306 mls/hr 06/15/25 22:32 06/15/25 23:07 Sodium Chloride IVPB 06/15/25 22:33 306 mls/hr ONCE ONE Administration Medical Decision Making MDM Narrative Medical decision making narrative: Appears to have a vomiting illness. And dehydration. Does not have abdominal pain rapid expect pancreatitis. Sepsis is in differential. Would screen for COVID. Pending labs might prompt further workup. Will check electrolytes; has been hypomagnesemic in the past as well. Perhaps this episode is triggered by viral infection nos or drinking or THC. Blood cultures will be obtained as well. Initiated L normal saline. Initial lactate returns at 5.5. I do not think this is inconsistent with illness as reported. Will hydrate and recheck. I would not convinced this represents sepsis yet. White count however is 17,000 suggesting infectious etiology though this could represent some margination simply from stress. I do not see evidence of sepsis otherwise at this point. I did order another L of fluids this time LR. With high white count and vomiting would have some concern about potential aspiration although does not seem to have respiratory symptoms. I did request a chest x-ray which Simona clearly declined. Labs otherwise are reassuring. U tox as expected She is however complaining of some headache. She would appreciate some acetaminophen. This is ordered. She also noted that she experienced burning on urination here in the emergency department. Quite certain that she has urinary tract infection. Has been experiencing abdominal cramping but soft and relatively nontender abdomen. Reported some more nausea so also ordered for Reglan. Urinalysis has no evidence of UTI. She is certain she has urinary tract infection. I admit that high white count is present. I think this is more stress response; possibly viral. Repeat lactate at beginning of the second liter improved to 2.5. We do have blood and urine cultures pending. I have no source at this point. I did go ahead and give a dose of Rocephin given concerns. I am anticipating discharge to change of shift. Transportation out might be a challenge. Has appeared otherwise vitally well. Appears improved. Pending oral challenge. See patient discharge plan for further discussion Focus on hydration. Slow advance of diet of the next 24-36 hours. Prescribing Zofran from [facility]. Return for intractable vomiting, marked increase in pain, associated fever. We will call you if your cultures show anything concerning. Medical Records Medical records reviewed: Yes I reviewed the patient's medical records Lab Data Lab results reviewed: Yes I reviewed the patient's lab results Labs: Lab Results 06/15/25 06/15/25 06/15/25 Range/Units 19:00 19:26 19:27 WBC 17.35 H (4.50-11.00) K/uL RBC 4.06 (4.00-5.20) m/uL Hgb 12.8 (12.0-16.0) gm/dL Hct 37.8 (33.0-51.0) % MCV 93 (80-100) fL MCH 32 (26-34) pg MCHC 34 (32-36) gm/dL RDW Coeff of Katina 11.6 (11.5-15.5) % Plt Count 331 (140-440) K/uL Neut % (Auto) 87.3 H (42.0-72.0) % Lymph % (Auto) 6.6 L (20-44) % Alpine % (Auto) 5.8 (0.0-11.0) % Eos % (Auto) 0.0 (0.0-7.0) % Baso % (Auto) 0.1 (0.0-3.0) % Neut # (Auto) 15.10 H (1.7-7.0) K/uL Lymph # (Auto) 1.10 (0.90-2.90) K/uL Alpine # (Auto) 1.00 H (0.00-0.90) K/UL Eos # (Auto) 0.00 (0.00-0.50) K/uL Baso # (Auto) 0.00 (0.00-0.30) K/uL Abs Immat Gran (auto) 0.00 (0.00-0.30) K/uL Imm/Tot Granulo (auto) 0.2 % Sodium 143 (135-149) mmol/L Potassium 4.2 (3.6-5.1) mmol/L Chloride 109 (96-114) mmol/L Carbon Dioxide 16 L (20-32) mmol/L Anion Gap 18 H (7-15) mEq/L BUN 30 (7-30) mg/dL Creatinine 1.0 (0.5-1.5) mg/dL Estimated GFR 63 ml/min Glucose 128 H (60-115) mg/dL Lactate 5.5 H* (0.5-1.9) mmol/L Calcium 9.8 (8.4-10.6) mg/dL Magnesium 1.7 (1.5-2.6) mg/dL Lipase 96 (23-300) U/L Urine Color Yellow (Yellow) Urine Appearance Clear (Clear) Urine pH 5.0 (5.0-8.5) Ur Specific Fraser 1.025 (1.000-1.030) Urine Protein Trace A (Negative) Urine Glucose (UA) Negative (Negative) Urine Ketones 1+ A (Negative) Urine Blood Negative (Negative) Urine Nitrite Negative (Negative) Urine Bilirubin Negative (Negative) Urine Urobilinogen 0.2 (0.2-1.0) Ur Leukocyte Esterase Negative (Negative) Urine RBC 0-2 (0-2) Urine WBC 2-5 (0-5) Ur Squamous Epith Cells Few (None-Few) Urine Bacteria None (None) Fine Granular Casts Moderate A (None) Urine Opiates Screen Negative (Negative) Ur Oxycodone Screen Negative (Negative) Urine Methadone Screen Negative (Negative) Ur Barbiturates Screen Negative (Negative) U Tricyclic Antidepress Negative (Negative) Ur Phencyclidine Scrn Negative (Negative) Ur Amphetamines Screen Negative (Negative) U Methamphetamines Scrn Negative (Negative) U Benzodiazepines Scrn Negative (Negative) Urine Cocaine Screen Negative (Negative) U Marijuana (THC) Screen POSITIVE A (Negative) Ur Drug Screen Comment See Note Ethyl Alcohol < 0.01 (0.01-0.03) % SARS-CoV-2 (PCR) Negative SARS-CoV-2 (Negative) Influenza Type A (PCR) Negative PCR FLU A (Negative) Influenza Type B (PCR) Negative PCR FLU B (Negative) RSV (PCR) Negative PCR RSV (Negative) 06/15/25 Range/Units 21:32 WBC (4.50-11.00) K/uL RBC (4.00-5.20) m/uL Hgb (12.0-16.0) gm/dL Hct (33.0-51.0) % MCV (80-100) fL MCH (26-34) pg MCHC (32-36) gm/dL RDW Coeff of Katina (11.5-15.5) % Plt Count (140-440) K/uL Neut % (Auto) (42.0-72.0) % Lymph % (Auto) (20-44) % Alpine % (Auto) (0.0-11.0) % Eos % (Auto) (0.0-7.0) % Baso % (Auto) (0.0-3.0) % Neut # (Auto) (1.7-7.0) K/uL Lymph # (Auto) (0.90-2.90) K/uL Alpine # (Auto) (0.00-0.90) K/UL Eos # (Auto) (0.00-0.50) K/uL Baso # (Auto) (0.00-0.30) K/uL Abs Immat Gran (auto) (0.00-0.30) K/uL Imm/Tot Granulo (auto) % Sodium (135-149) mmol/L Potassium (3.6-5.1) mmol/L Chloride (96-114) mmol/L Carbon Dioxide (20-32) mmol/L Anion Gap (7-15) mEq/L BUN (7-30) mg/dL Creatinine (0.5-1.5) mg/dL Estimated GFR ml/min Glucose (60-115) mg/dL Lactate 2.6 H (0.5-1.9) mmol/L Calcium (8.4-10.6) mg/dL Magnesium (1.5-2.6) mg/dL Lipase (23-300) U/L Urine Color (Yellow) Urine Appearance (Clear) Urine pH (5.0-8.5) Ur Specific Fraser (1.000-1.030) Urine Protein (Negative) Urine Glucose (UA) (Negative) Urine Ketones (Negative) Urine Blood (Negative) Urine Nitrite (Negative) Urine Bilirubin (Negative) Urine Urobilinogen (0.2-1.0) Ur Leukocyte Esterase (Negative) Urine RBC (0-2) Urine WBC (0-5) Ur Squamous Epith Cells (None-Few) Urine Bacteria (None) Fine Granular Casts (None) Urine Opiates Screen (Negative) Ur Oxycodone Screen (Negative) Urine Methadone Screen (Negative) Ur Barbiturates Screen (Negative) U Tricyclic Antidepress (Negative) Ur Phencyclidine Scrn (Negative) Ur Amphetamines Screen (Negative) U Methamphetamines Scrn (Negative) U Benzodiazepines Scrn (Negative) Urine Cocaine Screen (Negative) U Marijuana (THC) Screen (Negative) Ur Drug Screen Comment Ethyl Alcohol (0.01-0.03) % SARS-CoV-2 (PCR) (Negative) Influenza Type A (PCR) (Negative) Influenza Type B (PCR) (Negative) RSV (PCR) (Negative) ECG Data Attestation: I personally reviewed and interpreted this ECG as follows: (Normal sinus rhythm at a rate of 96.) Discharge Plan Discharge Clinical Impression: Vomiting, Dehydration Patient Disposition: Home w/ Parent or Adult Condition: Improved Additional Instructions: Focus on hydration. Slow advance of diet of the next 24-36 hours. Prescribing Zofran from [facility]. Return for intractable vomiting, marked increase in pain, associated fever. We will call you if your cultures show anything concerning. Prescriptions: No Action metoprolol tartrate 25 mg Tablet 12.5 mg PO BID potassium chloride 20 mEq tablet,ER particles/crystals 40 meq PO BID Qty: 180 3RF melatonin 1 mg tablet 5 mg PO HS PRN Patient Comments: [NO ORIGINAL SIG] Children's Multivitamin Tablet,Chewable 1 tab PO DAILY Patient Comments: [NO ORIGINAL SIG] thiamine HCl (vitamin B1) 100 mg tablet 100 mg PO DAILY loperamide 2 mg Capsule 2 mg PO 6XD Qty: 180 0RF Rx Instructions: (Cdiff neg 11/08/25) Hold for constipation atorvastatin 10 mg Tablet 10 mg PO HS Qty: 30 0RF gabapentin 300 mg Capsule 300 mg PO BID Qty: 60 0RF sertraline 50 mg Tablet 100 mg PO DAILY Qty: 60 0RF Metamucil (with sugar) 3.4 gram Powder In Packet 1 tsp PO BID Qty: 30 0RF nicotine 14 mg/24 hr Patch 24 Hour 1 patch topical Q24H Qty: 15 0RF Follow Up/Referrals: LIDIA CAMPOS DO [Primary Care Provider, Family Practice] Stand Alone Forms: MyHealth Info Instructions
[2025-06-15 19:40] LABS: Appearance Urine Clear (Clear)
[2025-06-15 19:41] LABS: Hematocrit 37.8 % (33.0-51.0); Hemoglobin* 12.8 gm/dL (12.0-16.0); Immature Granulocytes Pct Auto 0.2 %; Lactate* 5.5 mmol/L (0.5-1.9); Mean Corpuscular HGB Conc 34 gm/dL (32-36); Mean Corpuscular Hemoglobin 32 pg (26-34); Mean Corpuscular Volume 93 fL (80-100); RDW Coefficient of Variation % 11.6 % (11.5-15.5); Red Blood Count 4.06 m/uL (4.00-5.20); White Blood Count* 17.35 K/uL (4.50-11.00)
[2025-06-15 19:51] LABS: Immature Granulocytes Abs Auto 0.00 K/uL (0.00-0.30); Lymphocytes Absolute Auto 1.10 K/uL (0.90-2.90)
[2025-06-15 19:51] LABS: Cannabinoid Screen Urine POSITIVE (Negative); Methamphetamines Screen Urine Negative (Negative); Tricyclic Antidepressant Urine Negative (Negative)
[2025-06-15 19:52] LABS: Slide Review Reflex No
[2025-06-15 20:00] LABS: Chloride* 109 mmol/L (96-114); Sodium* 143 mmol/L (135-149)
[2025-06-15 20:01] LABS: Potassium* 4.2 mmol/L (3.6-5.1)
[2025-06-15 20:03] LABS: Blood Urea Nitrogen* 30 mg/dL (7-30); Creatinine* 1.0 mg/dL (0.5-1.5); Estimated Glomerular Filt Rate 63 ml/min
[2025-06-15 20:04] LABS: Anion Gap 18 mEq/L (7-15); Calcium* 9.8 mg/dL (8.4-10.6); Carbon Dioxide* 16 mmol/L (20-32); Glucose* 128 mg/dL (60-115)
[2025-06-15 20:05] LABS: Ethanol* < 0.01 % (0.01-0.03)
[2025-06-15 20:45] LABS: PCR FLU A Negative PCR FLU A (Negative); PCR FLU B Negative PCR FLU B (Negative); PCR RSV Negative PCR RSV (Negative); SARS PCR* Negative SARS-CoV-2 (Negative)
[2025-06-15] MEDS: LACTATED RINGERS 1000 ML 1,000 ML IV (20:55)
[2025-06-15] MEDS: ACETAMINOPHEN 500 MG TABLET 1000 MG PO (21:02)
[2025-06-15 21:37] LABS: Lactate* 2.6 mmol/L (0.5-1.9)
[2025-06-15] MEDS: METOCLOPRAMIDE HCL 10 MG in 0.9 % SODIUM CHLORIDE 100 ml 100 ML 306 MG IVPB (23:07)
[2025-06-15] MEDS: cefTRIAXone 1 GM in 0.9 % SODIUM CHLORIDE Mini-bag 100 ML IVPB (23:14)
--- NOTE | 2025-06-16 08:40 | ED.NURSE ---
After discussion with ER director Doris Sultana, a welfare check on patient was called at this time to the [place] police department [place] [facility] address that is listed in expanse.
--- NOTE | 2025-06-16 08:53 | ED.NURSE ---
At this time, 0850, female officer from [place] police department called and stated that she spoke directly to the patient. Patient stated that she was doing fine and in no distress. Was alone in her apartment per police and fire dispatcher.
--- NOTE | 2025-06-16 10:28 | ED.NURSE ---
At approximately 7:40 this morning, patients son called regarding mother. Son given the information that patient was discharged home to her apartment in [place]. Son stated that he talked to Dr. Key a few times last night and it was his understanding that the patient was going to either stay in the ER until she could be picked up by him or returned to the [facility]. I stated to son that I didnt know that information since I was not here last night. Son stated, well I better go check on her to make sure she is okay and she I will probably be returning her to our ER. After talking to Supervisor Area and Admin on-call about this situation, we decided to do a Welfare check on patient. ED nurse instructed to do this ole. At 9:45 this morning, left message with son to call back regarding patients care. No call back from son yet.
--- NOTE | 2025-06-16 15:31 | PC.SOCIAL ---
Social work: Attempted to reach nurse at [facility] multiple times starting at 9:00am. Successfuly reached David Laura, [facility] Coordinater ([phone]) at 10:15am. David confirmed pt is a resident of [facility]. He stated pt had been on a Leave of Absence with her son from that facility and was expected to return from the [facility] last night. As she did not return, the facility filed a MAARC report. David shared pt had returned to the facility at about 10:00am today. David confirmed pt's son, Ranjit, is her guardian but was unable to provide documentation of the guardianship. Faxed pt's discharge information as requested to [facility]. Called [facility] Vulnerable Adult worker Kaley Dawn to consult on criteria for mandated report regarding this situation. Confirmed son, Ranjit, is currently pt's guardian. Informed Kaley butcher MAARC report will be made by the hospital. Completed MAARC report on 06/16/25 at 12:42pm, report #[id number].
== END 2025-06-16 00:31 | disposition home or self-care (01) ==
PROVIDERS: Emergency Provider Family Medicine; PCP Student in an Organized Health Care Education/Training Program
DX: R11.10 Vomiting, unspecified (principal); E86.0 Dehydration
CPT/HCPCS: 36415; 80048; 80306; 81001; 82077; 83605; 83690; 83735; 85025; 87040; 87631; 93005; 94761; 96365; 96366; 99284; A9270; J0696; J2765; J7030; J7120

== ENCOUNTER 2025-06-16 00:22 | Outpatient (CLI) | payer MEDICAID, SELFPAY | END 2025-06-16 00:23 | disposition home or self-care (01) | PROVIDERS: PCP Student in an Organized Health Care Education/Training Program; Visit Provider Orthopaedic Surgery | DX: R51.9 Headache, unspecified (principal) | CPT/HCPCS: A0425; A0428 ==